=== PATIENT | male | born 1965 | race Hispanic/Latino ===

== ENCOUNTER 2017-01-09 19:12 | Inpatient (IN) | payer MEDICARE ==
[2017-01-09 19:20] VITALS: BMI 26.5
[2017-01-09] MEDS ORDERED: Sodium Chloride 0.9% 500 ML IV STA (19:35)
[2017-01-09] MEDS ORDERED: Morphine 2 mg/ml ISec IVP STA (19:35)
--- NOTE | 2017-01-09 19:44 | ED PDOC ---
Arrival/HPI - General Chief Complaint: GI Problem Time Seen by Provider: 01/09/17 19:22 Historian: Patient - History of Present Illness Narrative History of Present Illness (Text): 01/09/17 19:39 Td Garcia is a 51 year old male, whose past medical history includes chronic atrial fibrillation, CAD, and waldenstrom macroglobulinemia, s/p colectomy and colostomy, who presents to the emergency department complaining of multiple sudden onset episodes of epigastric discomfort that began approximately an hour prior to arrival. Patient states that he had eaten just prior to onset of symptoms. Patient notes that he restarted his Chlorambucil medication for his waldenstrom macroglobulinemia. Patient denies any fever, chills, diarrhea, shortness of breath, chest pain, or any other complaint at this time. PMD: Dr. Gavin Time/Duration: 1 hour Symptom Onset: Sudden Symptom Course: Unchanged Severity Level: Mild Activities at Onset: Light Context: Home Past Medical History - Provider Review Nursing Documentation Reviewed: Yes - Infectious Disease Hx of Infectious Diseases: None - Cardiac Hx Atrial Fibrillation: Yes Hx Congestive Heart Failure: Yes Hx Hypertension: Yes - Pulmonary Hx Chronic Obstructive Pulmonary Disease (COPD): No Other/Comment: on home O2 for low sat - Neurological Hx Transient Ischemic Attacks (TIA): No - HEENT Hx HEENT Disorder: No Hx Blind: No Hx Cataracts: No Hx Deafness: No Hx Difficulty Chewing: No Hx Epistaxis: No Hx Glaucoma: No Hx Macular Degeneration: No - Renal Hx Renal Failure: No - Endocrine/Metabolic Hx Diabetes Mellitus Type 1: No Hx Diabetes Mellitus Type 2: No - Hematological/Oncological Other/Comment: Waldenstrom's macroglobulinemia - Integumentary Hx Dermatological Disorder: No Hx Basal Cell Carcinoma: No Hx Eczema: No Hx Melanoma: No Hx Psoriasis: No Hx Squamous Cell Carcinoma: No - Musculoskeletal/Rheumatological Hx Musculoskeletal Disorders: Yes Hx Back Pain: Yes Hx Fractures: Yes (spine) Other/Comment: pt in rehab for 2 spinal fractures, unable to fully walk at home. - Gastrointestinal Hx Gastrointestinal Disorders: Yes Hx Bowel Surgery: Yes Hx Colostomy: Yes (LUQ) Hx Crohn's Disease: No Hx Diverticulitis: Yes Hx Gall Bladder Disease: No Hx Gastroesophageal Reflux: No Hx Ileostomy: No Hx Liver Failure: No Hx Pancreatitis: No HX Swallowing Problems: No - Genitourinary/Gynecological Hx Genitourinary Disorders: No Hx Hematuria: No Hx Incontinence: No Hx Prostate Problems: No Hx Sexually Transmitted Diseases: No Hx Urinary Tract Infection: Yes - Psychiatric Hx Emotional Abuse: No Hx Physical Abuse: No Hx Substance Use: No - Surgical History Hx Amputation: No Hx Appendectomy: No Hx Cardiac Catheterization: Yes (2012) Hx Cholecystectomy: No Hx Coronary Stent: No Hx Gastric Bypass Surgery: No Hx Hysterectomy: No Hx Joint Replacement: No Hx Kidney Transplant: No Hx Liver Transplant: No Hx Mastectomy: No Hx Musculoskeletal Surgery: No Hx Open Heart Surgery: No Hx Orthopedic Surgery: No Hx Splenectomy: No Hx Valve Replacement: No Other/Comment: Partial colectomy of the sigmoid colon. Colostomy placement - Anesthesia Hx Anesthesia: Yes Hx Anesthesia Reactions: No Hx Malignant Hyperthermia: No - Suicidal Assessment Feels Threatened In Home Enviroment: No Family/Social History - Physician Review Nursing Documentation Reviewed: Yes Family/Social History: No Known Family HX Smoking Status: Former Smoker Hx Alcohol Use: No Hx Substance Use: No Allergies/Home Meds Allergies/Adverse Reactions: Allergies No Known Allergies Allergy (Verified 03/28/16 19:46) Home Medications: Home Meds Medication Instructions Recorded Confirmed Temazepam [Restoril] 30 mg PO HS 09/18/16 11/28/16 Warfarin Sodium 10 mg PO DAILY 09/18/16 11/28/16 Review of Systems - Physician Review All systems were reviewed & negative as marked: Yes - Review of Systems Constitutional: absent: Fevers, Night Sweats Eyes: absent: Vision Changes ENT: absent: Hearing Changes Respiratory: absent: SOB, Cough Cardiovascular: absent: Chest Pain Gastrointestinal: Abdominal Pain (Epigastric Discomfort) Genitourinary Male: absent: Urinary Output Changes Musculoskeletal: absent: Back Pain, Neck Pain Skin: absent: Rash Neurological: absent: Headache Endocrine: absent: Diaphoresis Hemo/Lymphatic: absent: Adenopathy Psychiatric: absent: Depression Physical Exam Vital Signs Reviewed: Yes Vital Signs Temp Pulse Resp BP Pulse Ox 01/09/17 22:38 95 H 18 108/69 99 01/09/17 21:12 112 H 18 110/70 98 01/09/17 19:20 97.6 F 122 H 18 112/70 98 Temperature: Afebrile Blood Pressure: Normal Pulse: Tachycardic Respiratory Rate: Normal Appearance: Positive for: Ill-Appearing Pain Distress: None Mental Status: Positive for: Alert and Oriented X 3 - Systems Exam Head: Present: Atraumatic, Normocephalic Pupils: Present: PERRL Extroacular Muscles: Present: EOMI Conjunctiva: Present: Normal Mouth: Present: Moist Mucous Membranes Neck: Present: Normal Range of Motion Respiratory/Chest: Present: Clear to Auscultation, Good Air Exchange. No: Respiratory Distress, Accessory Muscle Use Cardiovascular: Present: Regular Rate and Rhythm, Normal S1, S2. No: Murmurs Abdomen: Present: Tenderness (epigastric tenderness on palpation), Normal Bowel Sounds, Other (Colostomy bag in place with stool in bag) Back: Present: Normal Inspection Upper Extremity: Present: Normal Inspection. No: Cyanosis, Edema Lower Extremity: Present: Normal Inspection. No: Edema Neurological: Present: GCS=15, CN II-XII Intact, Speech Normal Skin: Present: Warm, Dry, Normal Color. No: Rashes Psychiatric: Present: Alert, Oriented x 3, Normal Insight, Normal Concentration Medical Decision Making ED Course and Treatment: 01/09/17 19:48 Impression: 51 year old male complaining of epigastric discomfort about an hour prior to arrival. Differential Diagnosis included but are not limited to: Gastritis vs. Small Bowel Obstruction vs. Pancreatitis Plan: -- EKG -- Chest X-ray -- Labs -- Morphine, Pepcid, Zofran, and IV Fluids -- Reassess and disposition Prior Visits: Notes and results from previous visits were reviewed. Patient last seen in the ED on 11/28/16 because hemoglobin was 7.8. Patient left AMA Progress Notes: EKG: Ordered, reviewed, and independently interpreted the EKG. Rate : 126 bpm Rhythm : A fib Interpretation : Ocasional PVC, septal infarct, non-specific ST-T wave changes. 01/09/17 21:04 Reviewed Chest x-ray, shows no acute processes. 01/09/17 23:21 CT Abdomen and Pelvis shows: Bilateral pleural effusions, with adjacent compressive atelectasis, improved from previous examination performed 09/19/2016. Hepatosplenomegaly. The gallbladder is moderately enlarged, with small dependent stones. 01/09/17 23:[address] Ward, covering for Dr. Gavin, who is aware and agrees with plan. Pt will be admitted to [facility] for abdominal pain, vomiting , and biliary colic. Requests Dr. House and Dr. Mas on consult. Paged surgical elastic knitter hand frame. 01/09/17 23:[address] Barriga, surgical elastic knitter hand frame education research analyst, who is aware and agrees to evaluate. - Lab Interpretations Lab Results: 01/09/17 20:07 01/09/17 20:07 Lab Results 01/09/17 20:07: WBC 2.5 L* D, RBC 2.79 L, Hgb 9.5 L, Hct 27.9 L, MCV 100.0, MCH 34.1, MCHC 34.1, RDW 13.5, Plt Count 66 L, MPV 9.7, PT 13.7 H, INR 1.27 H, APTT 29.2, Sodium 138, Potassium 3.4 L, Chloride 93 L, Carbon Dioxide 31, Anion Gap 17, BUN 14, Creatinine 0.6, Est GFR ( Amer) > 60, Est GFR (Non-Af Amer) > 60, Random Glucose 181 H, Calcium 9.7, Total Bilirubin 3.9 H, AST 65 H, ALT 33 , Alkaline Phosphatase 172 H, Lactate Dehydrogenase 630, Total Creatine Kinase < 20 L, Troponin I 0.01, Total Protein 9.4 H, Albumin 4.0, Globulin 5.4, Albumin /Globulin Ratio 0.7 L, Lipase 43, Digoxin < 0.4 L I have reviewed the lab results: Yes - RAD Interpretation Narrative RAD Interpretations (Text): CT Abdomen and Pelvis shows: Lower thorax: Bilateral pleural effusions with adjacent compressive atelectasis , improved from previous examination performed 09/19/2016. ABDOMEN: Liver: Enlarged, without additional findings. Gallbladder and bile ducts: The gallbladder is moderately enlarged, an interval change from previous examination. Small dependent stones are identified. No intra-extrahepatic biliary ductal dilation. Pancreas: Limited evaluation secondary to the lack of intravenous contrast. Spleen: Enlarged, without additional findings. Adrenals: No acute findings. Kidneys and ureters: No obstructing stones. No hydronephrosis. PELVIS: Bladder: No acute findings. Reproductive: No acute findings. Appendix: Air-filled appendix is of normal-caliber (series 2, image 114) ABDOMEN and PELVIS: Stomach and bowel: A loop ileostomy is identified. Peritoneum: iInfiltration of the left upper quadrant, seen on previous examination is not present on the current study. Lymph nodes: Limited evaluation without intravenous contrast. Vasculature: No aortic aneurysm. Calcified atherosclerotic disease. Bones: No acute fracture. IMPRESSION: Bilateral pleural effusions, with adjacent compressive atelectasis, improved from previous examination performed 09/19/2016. Hepatosplenomegaly. The gallbladder is moderately enlarged, with small dependent stones. Radiology Orders: 01/09/17 19:34 CHEST PORTABLE [RAD] Stat 01/09/17 20:53 ABD & PELVIS W/O PO OR IV CONT [CT] Stat [employer] Architect: ED Physician, Radiologist - EKG Interpretation Interpreted by ED Physician: Yes Type: 12 lead EKG - Medication Orders Current Medication Orders: Sodium Chloride (Sodium Chloride 0.9%) 1,000 mls @ 100 mls/hr IV .Q10H LUZ Last Admin: 01/09/17 20:16 Dose: 100 MLS/HR eMAR Start Stop Document 01/09/17 20:16 HI (Rec: 01/09/17 20:16 [id number]) Intravenous Solution Start Date 01/09/17 Start Time 20:16 Metronidazole (Flagyl) 100 mls @ 100 mls/hr IVPB STAT STA PRN Reason: Protocol Stop: 01/10/17 00:18 Ondansetron HCl (Zofran Inj) 4 mg IVP Q4H PRN PRN Reason: Nausea/Vomiting Stop: 01/10/17 11:00 Oxycodone/Acetaminophen (Percocet 5/325 Mg Tab) 1 tab PO Q4H PRN PRN Reason: Pain, moderate (4-7) Stop: 01/10/17 12:00 Discontinued Medications Famotidine (Pepcid) 20 mg IVP STAT STA Stop: 01/09/17 19:36 Last Admin: 01/09/17 20:15 Dose: 20 MG IVP Administration Document 01/09/17 20:15 HI (Rec: 01/09/17 20:15 [id number]) Charges for Administration # of IVP Administrations 1 Hydromorphone HCl (Dilaudid) 1 mg IVP STAT STA Stop: 01/09/17 20:55 Last Admin: 01/09/17 21:06 Dose: 1 MG IVP Administration Document 01/09/17 21:06 HI (Rec: 01/09/17 21:06 [id number]) Charges for Administration # of IVP Administrations 1 Hydromorphone HCl (Dilaudid) 1 mg IVP STAT STA Stop: 01/09/17 22:35 Last Admin: 01/09/17 22:43 Dose: 1 MG IVP Administration Document 01/09/17 22:43 HI (Rec: 01/09/17 22:43 [id number]) Charges for Administration # of IVP Administrations 1 Sodium Chloride (Sodium Chloride 0.9%) 500 mls @ 500 mls/hr IV .Q1H STA Stop: 01/09/17 20:34 Last Admin: 01/09/17 20:16 Dose: 500 MLS/HR eMAR Start Stop Document 01/09/17 20:16 HI (Rec: 01/09/17 20:16 [id number]) Intravenous Solution Start Date 01/09/17 Start Time 20:16 Potassium Chloride (Potassium Chloride 10 Meq/100 Ml) 100 mls @ 100 mls/hr IVPB ONCE ONE Stop: 01/09/17 21:36 Last Admin: 01/09/17 21:06 Dose: 100 MLS/HR eMAR Start Stop Document 01/09/17 21:06 HI (Rec: 01/09/17 21:06 [id number]) Intravenous Solution Start Date 01/09/17 Start Time 21:06 Ceftriaxone Sodium (Rocephin 1 Gram Ivpb) 100 mls @ 200 mls/hr IV ONCE STA PRN Reason: Protocol Stop: 01/09/17 23:45 Morphine Sulfate (Morphine) 4 mg IVP STAT STA Stop: 01/09/17 19:36 Last Admin: 01/09/17 20:15 Dose: 4 MG MAR Pain Assessment Document 01/09/17 20:15 HI (Rec: 01/09/17 20:15 [id number]) Pain Reassessment Is this a pain reassessment? No Sleep Is patient sleeping during reassessment? No Presence of Pain Presence of Pain Yes Pain Scale Used Pain Scale Used Numeric Location Pain Location Body Site Abdomen IVP Administration Document 01/09/17 20:15 HI (Rec: 01/09/17 20:15 [id number]) Charges for Administration # of IVP Administrations 1 Ondansetron HCl (Zofran Inj) 4 mg IVP ONCE ONE Stop: 01/09/17 19:36 Last Admin: 01/09/17 20:15 Dose: 4 MG IVP Administration Document 01/09/17 20:15 HI (Rec: 01/09/17 20:15 [place] [facility] [id number][place] Charges for Administration # of IVP Administrations 1 - Scribe Statement The provider has reviewed the documentation as recorded by the Maryibe Thelma Quiroga Provider Scribe Attestation: All medical record entries made by the Maryibe were at my direction and personally dictated by me. I have reviewed the chart and agree that the record accurately reflects my personal performance of the history, physical exam, medical decision making, and the department course for this patient. I have also personally directed, reviewed, and agree with the discharge instructions and disposition. Disposition/Present on Arrival - Present on Arrival Any Indicators Present on Arrival: No History of DVT/PE: No History of Uncontrolled Diabetes: No Urinary Catheter: No History of Decub. Ulcer: No History Surgical Site Infection Following: None - Disposition Have Diagnosis and Disposition been Completed?: Yes Diagnosis: Biliary colic, Abdominal pain Disposition: HOSPITALIZED Disposition Time: 23:48 Patient Plan: Admission Patient Problems: Current Active Problems Problem Status Diagnosed Abdominal pain Acute Biliary colic Acute Condition: STABLE
[2017-01-09] MEDS: Sodium Chloride 0.9% 1,000 ML IV SCH (20:16)
[2017-01-09 20:23] LABS: HEMATOCRIT 27.9 % (42.0-52.0); MEAN CORPUSCULAR HEMOGLOBIN 34.1 pg (25.0-35.0); MEAN CORPUSCULAR HGB CONC 34.1 g/dl (31.0-37.0); MEAN PLATELET VOLUME 9.7 fl (7.0-11.0); RED CELL DISTRIBUTION WIDTH 13.5 % (11.5-14.5)
[2017-01-09 20:31] LABS: WHITE BLOOD COUNT 2.5 10^3/ul (4.5-11.0)
[2017-01-09 20:32] LABS: INR 1.27 (0.93-1.08); PARTIAL THROMBOPLASTIN TIME 29.2 Seconds (23.7-30.8)
[2017-01-09 20:33] LABS: ALB/GLOB RATIO 0.7 (1.1-1.8); ALKALINE PHOSPHATASE 172 U/L (38-133); ALT/SGPT 33 U/L (7-56); AST/SGOT 65 U/L (15-59); BILIRUBIN,TOTAL 3.9 mg/dL (0.2-1.3); BLOOD UREA NITROGEN 14 mg/dL (7-21); CALCIUM 9.7 mg/dL (8.4-10.5); CARBON DIOXIDE 31 mmol/L (21-33); CHLORIDE 93 mmol/L (98-107); GFR AFRICAN-AMERICAN > 60; GLUCOSE,RANDOM 181 mg/dL (70-110); LIPASE 43 U/L (23-300); POTASSIUM 3.4 mmol/L (3.6-5.0); SODIUM 138 mmol/L (132-148); TOTAL PROTEIN 9.4 g/dL (5.8-8.3)
[2017-01-09] MEDS ORDERED: Potassium Chloride 10 mEq 100 ML IVPB ONE (20:37)
[2017-01-09 20:47] LABS: TROPONIN I 0.01 ng/mL
[2017-01-09] MEDS ORDERED: HYDROmorphone 1 mg/ml ISec IVP STA ×3 (20:54→23:54)
--- NOTE | 2017-01-09 23:00 | CT ---
EXAM: CT Abdomen and Pelvis Without Intravenous Contrast CLINICAL HISTORY: 51 years old, male; Pain; Abdominal pain; Epigastric; Additional info: Vomiting TECHNIQUE: Axial computed tomography images of the abdomen and pelvis without intravenous contrast. This CT exam was performed using one or more of the following dose reduction techniques: automated exposure control, adjustment of the mA and/or kV according to patient size, and/or use of iterative reconstruction technique. Coronal and sagittal reformatted images were created and reviewed. COMPARISON: CT - ABD PELVIS PO CONTRAST ONLY 09/19/2016 1:44:32 PM FINDINGS: Lower thorax: Bilateral pleural effusions with adjacent compressive atelectasis, improved from previous examination performed 09/19/2016. ABDOMEN: Liver: Enlarged, without additional findings. Gallbladder and bile ducts: The gallbladder is moderately enlarged, an interval change from previous examination. Small dependent stones are identified. No intra-extrahepatic biliary ductal dilation. Pancreas: Limited evaluation secondary to the lack of intravenous contrast. Spleen: Enlarged, without additional findings. Adrenals: No acute findings. Kidneys and ureters: No obstructing stones. No hydronephrosis. PELVIS: Bladder: No acute findings. Reproductive: No acute findings. Appendix: Air-filled appendix is of normal-caliber (series 2, image 114) ABDOMEN and PELVIS: Stomach and bowel: A loop ileostomy is identified. Peritoneum: iInfiltration of the left upper quadrant, seen on previous examination is not present on the current study. Lymph nodes: Limited evaluation without intravenous contrast. Vasculature: No aortic aneurysm. Calcified atherosclerotic disease. Bones: No acute fracture. IMPRESSION: Bilateral pleural effusions, with adjacent compressive atelectasis, improved from previous examination performed 09/19/2016. Hepatosplenomegaly. The gallbladder is moderately enlarged, with small dependent stones.
[2017-01-09] MEDS ORDERED: cefTRIAXone 1 gm 100 ML IV STA (23:16)
[2017-01-09] MEDS ORDERED: metroNIDAZOLE IV 500 mg/100 ml 100 ML IVPB STA (23:19)
[2017-01-10] MEDS: Oxycodone/Acetaminophen 5/325 mg Tab PO PRN ×2 (02:12→05:44)
--- NOTE | 2017-01-10 05:10 | CP.PCM.CON ---
History of Present Illness - History of Present Illness History of Present Illness: General Surgery Consult Note for Dr. Mas CC: Abdominal Pain X 1 day HPI: This is a 51M with a PMH of diverticulitis s/p Sharpe's procedure in March 2016, and a skin wound infection at his stoma site. He presented today due to upper abdominal pain that began yesterday evening 30 min after eating his shrimp parm[place]iana dinner. He reports that the pain was accompanied by two episodes of emesis. He reports that now his pain has resolved. He is currently not nauseous anymore. Patient denies any skin breakdown or problems with or surrounding his stoma. The patient denies any fevers or chills at home. PMH: a-fib, waldenstroms macroglobinemia, HTN, chronic back pain PSH: Sharpe's procedure Meds: MAR reviewed NKDA Social: +Tobacco, no ETOH/drugs Fhx: non-contributory Review of Systems - Review of Systems All systems: reviewed and no additional remarkable complaints except Past Patient History - Infectious Disease Hx of Infectious Diseases: None - Past Social History Smoking Status: Never Smoked - CARDIAC Hx Atrial Fibrillation: Yes Hx Congestive Heart Failure: Yes Hx Hypertension: Yes - PULMONARY Hx Chronic Obstructive Pulmonary Disease (COPD): No Other/Comment: on home O2 for low sat - NEUROLOGICAL Hx Transient Ischemic Attacks (TIA): No - HEENT Hx HEENT Problems: No Hx Blind: No Hx Cataracts: No Hx Deafness: No Hx Difficulty Chewing: No Hx Epistaxis: No Hx Glaucoma: No Hx Macular Degeneration: No - RENAL Hx Renal Failure: No - ENDOCRINE/METABOLIC Hx Diabetes Mellitus Type 1: No Hx Diabetes Mellitus Type 2: No - HEMATOLOGICAL/ONCOLOGICAL Other/Comment: Waldenstrom's macroglobulinemia - INTEGUMENTARY Hx Dermatological Problems: No Hx Basil Cell: No Hx Eczema: No Hx Melanoma: No Hx Psoriasis: No Hx Squamous Cell: No - MUSCULOSKELETAL/RHEUMATOLOGICAL Hx Falls: Yes - GASTROINTESTINAL Hx Gastrointestinal Disorders: Yes Hx Bowel Surgery: Yes Hx Colostomy: Yes (LUQ) Hx Crohn's Disease: No Hx Diverticulitis: Yes Hx Gall Bladder Disease: No Hx Gastroesophageal Reflux: No Hx Ileostomy: No Hx Liver Failure: No Hx Pancreatitis: No HX Swallowing Problems: No - GENITOURINARY/GYNECOLOGICAL Hx Genitourinary Disorders: No Hx Hematuria: No Hx Incontinence: No Hx Prostate Problems: No Hx Sexually Transmitted Disorders: No Hx Urinary Tract Infection: Yes - PSYCHIATRIC Hx Emotional Abuse: No Hx Physical Abuse: No Hx Substance Use: No - SURGICAL HISTORY Hx Amputation: No Hx Appendectomy: No Hx Cardiac Catheterization: Yes (2012) Hx Cholecystectomy: No Hx Coronary Stent: No Hx Gastric Bypass Surgery: No Hx Hysterectomy: No Hx Joint Replacement: No Hx Kidney Transplant: No Hx Liver Transplant: No Hx Mastectomy: No Hx Musculoskeletal Surgery: No Hx Open Heart Surgery: No Hx Orthopedic Surgery: No Hx Splenectomy: No Hx Valve Replacement: No Other/Comment: Partial colectomy of the sigmoid colon. Colostomy placement - ANESTHESIA Hx Anesthesia: Yes Hx Anesthesia Reactions: No Hx Malignant Hyperthermia: No Meds Allergies/Adverse Reactions: Allergies Allergy/AdvReac Type Severity Reaction Status Date / Time No Known Allergies Allergy Verified 03/28/16 19:46 - Medications Medications: Current Medications Sodium Chloride (Sodium Chloride 0.9%) 1,000 mls @ 100 mls/hr IV .Q10H LUZ Last Admin: 01/09/17 20:16 Dose: 100 mls/hr Ondansetron HCl (Zofran Inj) 4 mg IVP Q4H PRN PRN Reason: Nausea/Vomiting Stop: 01/10/17 11:00 Oxycodone/Acetaminophen (Percocet 5/325 Mg Tab) 1 tab PO Q4H PRN PRN Reason: Pain, moderate (4-7) Stop: 01/10/17 12:00 Last Admin: 01/10/17 02:12 Dose: 1 tab Physical Exam - Constitutional Appears: Non-toxic, No Acute Distress - Head Exam Head Exam: ATRAUMATIC, NORMOCEPHALIC - Eye Exam Eye Exam: EOMI, Normal appearance - ENT Exam ENT Exam: Mucous Membranes Moist, Normal Exam - Respiratory Exam Respiratory Exam: NORMAL BREATHING PATTERN - Cardiovascular Exam Cardiovascular Exam: +S1, +S2 - GI/Abdominal Exam GI & Abdominal Exam: Soft. absent: Distended, Firm, Guarding, Hernia, Rebound, Rigid Additional comments: No [place], No RUQ tenderness, Stoma patent with stool - Extremities Exam Extremities exam: Positive for: normal inspection - Back Exam Back exam: NORMAL INSPECTION - Neurological Exam Neurological exam: Alert, Oriented x3 - Psychiatric Exam Psychiatric exam: Normal Affect, Normal Mood - Skin Skin Exam: Dry, Intact Results - Vital Signs Recent Vital Signs: Last Vital Signs Temp 97.5 F L 01/10/17 01:14 Pulse 90 01/10/17 01:14 Resp 18 01/10/17 01:14 BP 107/76 01/10/17 01:14 Pulse Ox 99 01/10/17 00:45 - Labs Result Diagrams: 01/09/17 20:07 01/09/17 20:07 - Imaging and Cardiology CT scan - abdomen Status: Image reviewed by me, Report reviewed by me Assessment & Plan - Assessment and Plan (Free Text) Assessment: This is a 51M who presented with abdominal pain; CT Moderatly enlarged gallbladder with small stones Vital Signs stable, Hgb 9.5, WBC 2.5, TBili 3.9 Abdominal US ordered will followup NPO IVF Continue medical management per primary team Will discuss with Dr. Chace Brennan PGY-0 - Date & Time Date: 01/10/17 Time: 01:00
[2017-01-10] MEDS: Sodium Chloride 0.9% 1,000 ML IV SCH ×2 (07:54→16:45)
--- NOTE | 2017-01-10 07:54 | RAD ---
PROCEDURE: CHEST RADIOGRAPH, 1 VIEW HISTORY: abdominal pain COMPARISON: None available. FINDINGS: LUNGS: Bilateral interstitial changes. PLEURA: No pneumothorax or pleural fluid seen. CARDIOVASCULAR: Normal. OSSEOUS STRUCTURES: No significant abnormalities. VISUALIZED UPPER ABDOMEN: Normal. OTHER FINDINGS: None. IMPRESSION: Bilateral interstitial changes.
[2017-01-10] MEDS ORDERED: Ciprofloxacin 400mg/200ml D5W 200 ML IVPB SCH (10:00)
[2017-01-10] MEDS: HYDROmorphone 1 mg/ml ISec IVP PRN ×4 (10:36→22:12)
--- NOTE | 2017-01-10 10:45 | US ---
HISTORY: Tbili 3.2 GB stones COMPARISON: None. TECHNIQUE: Sonographic evaluation of the abdomen. FINDINGS: LIVER: Measures cm. Heterogeneous echogenicity of the liver parenchyma. No mass. No intrahepatic bile duct dilatation. GALLBLADDER: Gallstones and sludge. COMMON BILE DUCT: Measures mm. No stones. No dilatation. PANCREAS: Unremarkable as visualized. No mass. No ductal dilatation. RIGHT KIDNEY: Measures cm. Normal echogenicity. No calculus, mass, or hydronephrosis. LEFT KIDNEY: Measures cm. Normal echogenicity. No calculus, mass, or hydronephrosis. SPLEEN: Normal in size and contour. No mass. AORTA: No aneurysmal dilatation. IVC: Unremarkable. OTHER FINDINGS: None. IMPRESSION: Fibro/fatty infiltration of the liver. Cholelithiasis.
[2017-01-10 11:50] LABS: MEAN CELL VOLUME 100.8 fL (80.0-105.0); MEAN CORPUSCULAR HEMOGLOBIN 33.3 pg (25.0-35.0); MEAN CORPUSCULAR HGB CONC 33.1 g/dl (31.0-37.0); MEAN PLATELET VOLUME 9.1 fl (7.0-11.0); RED CELL DISTRIBUTION WIDTH 13.7 % (11.5-14.5)
[2017-01-10 11:53] LABS: HEMATOCRIT 23.9 % (42.0-52.0); WHITE BLOOD COUNT 1.3 10^3/ul (4.5-11.0)
[2017-01-10 11:56] LABS: ALB/GLOB RATIO 0.7 (1.1-1.8); ALKALINE PHOSPHATASE 171 U/L (38-133); ALT/SGPT 68 U/L (7-56); AST/SGOT 91 U/L (15-59); BILIRUBIN,TOTAL 4.4 mg/dL (0.2-1.3); BLOOD UREA NITROGEN 12 mg/dL (7-21); CALCIUM 8.8 mg/dL (8.4-10.5); CARBON DIOXIDE 33 mmol/L (21-33); CHLORIDE 97 mmol/L (98-107); GFR AFRICAN-AMERICAN > 60; GLUCOSE,RANDOM 97 mg/dL (70-110); POTASSIUM 3.2 mmol/L (3.6-5.0); SODIUM 140 mmol/L (132-148); TOTAL PROTEIN 8.2 g/dL (5.8-8.3)
[2017-01-10] MEDS: Digoxin 125 mcg (0.125 mg) Tab PO SCH (13:08)
[2017-01-10] MEDS: cefTRIAXone 1 gm 100 ML IVPB SCH (13:09)
--- NOTE | 2017-01-10 13:28 | CARD ---
APPROVED REPORT EKG Measurement Heart [id number] <Conclusion> Atrial fibrillation with rapid ventricular response with premature ventricular or aberrantly conducted complexes RSR' or QR pattern in V1 suggests right ventricular conduction delay Septal infarct, age undetermined Abnormal ECG
[2017-01-10] MEDS: metroNIDAZOLE IV 500 mg/100 ml 100 ML IVPB SCH ×2 (14:08→22:14)
[2017-01-10] MEDS: Potassium Chloride 10 mEq 100 ML IVPB SCH ×2 (18:49→22:14)
[2017-01-10] MEDS ORDERED: RESTORIL 30 MG PO SCH (22:00)
--- NOTE | 2017-01-10 22:05 | HP ---
HISTORY OF PRESENT ILLNESS: The patient is a 51-year-old male admitted to the hospital with abdomina l pain. He has history of bilateral macroglobulinemia and being treated at [facility] with clonal B cell. He also has history of atrial fibrillation, currently on Coumadin with therapeutic I NR. He also has history of CAD. He denies any fever. He had nausea, vomiting. A CAT scan of the a bdomen showed cholelithiasis, hepatosplenomegaly. He denies any bleeding from any site. He has rossy re anemia with hemoglobin of 7.9, white count of 1.8 and platelet count of 52. He also has atrial fi brillation, heart rate is well controlled on current medications. PAST MEDICAL HISTORY: Waldenstrom macroglobulinemia, atrial fibrillation, history of TIA, COPD, panc ytopenia, history of blood transfusion in the past, multiple spinal fractures, back pain. PAST SURGICAL HISTORY: Bowel surgery, colostomy present; history of cardiac catheterization for hang nary artery disease, partial colectomy of sigmoid colon. FAMILY HISTORY: No positive family history of mother or father smoking. PERSONAL HISTORY: Former smoker. No history of alcohol abuse. ALLERGIES: No known drug allergies. SOCIAL HISTORY: He lives at home with . HOME MEDICATIONS: Restoril 30 mg p.o. at bedtime, Coumadin 10 mg daily. REVIEW OF SYSTEMS: As per HPI. Rest of 12-point review of systems reviewed and negative. PHYSICAL EXAMINATION: GENERAL: Comfortable in bed, in no acute distress. VITAL SIGNS: Temperature 97.6, heart rate is 120 per minute, respiratory rate 18 per minute, blood p ressure 112/70, oxygen 98%. HEENT: Atraumatic. NECK: No lymphadenopathy. CHEST: Air entry present, equal bilateral. No added sounds. CARDIOVASCULAR: S1, S2 normal. No murmur, no gallop. ABDOMEN: Soft, nontender. Colostomy present. Stoma clear around colostomy. No rebound tenderness. EXTREMITIES: No edema, no calf tenderness. SKIN: No petechia, no rash. CENTRAL NERVOUS SYSTEM: Alert, oriented x 3, no focal sensorimotor deficit. LABORATORY DATA: White count 2.5. Hemoglobin 9.5 on admission, it declined to 7.9. Platelet count 52, white count 1.3. Differential could not be done. Sodium 140, potassium 3.2, total bilirubin 4.4 , AST 91, ALT 68, alkaline phosphatase 71. EK beats per minute, atrial fibrillation. CAT sca n of the abdomen and pelvis reviewed: Bilateral pleural effusion, hepatosplenomegaly, gallbladder mi ldly enlarged with dependent stones, small. Blood cultures pending. Urine culture pending. Dig lev el 0.04. ASSESSMENT: 1. Waldenstrom macroglobulinemia. 2. Pancytopenia. 3. Gallstones. 4. Atrial fibrillation. 5. Possible intraabdominal infection. PLAN: Surgery, Dr. Mas consulted. Gastroenterology, Dr. House consulted. He has pancytopenia wi th hemoglobin of 7.9. I recommended 2 units of blood transfusion. The patient declined blood transf usion. He said I should talk to his oncologist at [place]. [facility] It was a general number. He could not provide the oncologist's number. A message left for o ncology team at [place] to call back. White count 1.3. Differential could not be done, neutrope jewel precautions to be followed, platelet count 52. We will monitor blood counts closely. We will co bill with antibiotic because of neutropenia with ceftriaxone 1 gram daily and Flagyl 500 three times a day q. 8 hrs. ID consultation, Dr. uLna, requested. We will continue Pepcid 20 mg IV q. 12, digoxin 0.125 mg daily. He also has hypokalemia, 2 riders KCl 20 mEq. Will continue Actigall 300 mg p.o. b.i.d. Nancy Ward MD cc: [id number] TT: 01/10/2017 22:05:03 artur
[2017-01-11] MEDS: Sodium Chloride 0.9% 1,000 ML IV SCH (03:01)
[2017-01-11] MEDS: HYDROmorphone 1 mg/ml ISec IVP PRN ×6 (03:04→22:07)
[2017-01-11] MEDS: metroNIDAZOLE IV 500 mg/100 ml 100 ML IVPB SCH ×2 (05:32→14:33)
[2017-01-11 08:00] LABS: ALB/GLOB RATIO 0.8 (1.1-1.8); ALKALINE PHOSPHATASE 148 U/L (38-133); ALT/SGPT 58 U/L (7-56); AST/SGOT 57 U/L (15-59); BILIRUBIN,TOTAL 1.9 mg/dL (0.2-1.3); BLOOD UREA NITROGEN 8 mg/dL (7-21); CALCIUM 8.3 mg/dL (8.4-10.5); CARBON DIOXIDE 32 mmol/L (21-33); CHLORIDE 99 mmol/L (95-110); GFR AFRICAN-AMERICAN > 60; GLUCOSE,RANDOM 84 mg/dL (70-110); POTASSIUM 3.8 mmol/L (3.6-5.0); SODIUM 138 mmol/L (132-148); TOTAL PROTEIN 7.5 g/dL (5.8-8.3)
--- NOTE | 2017-01-11 08:32 | CP.PCM.PN ---
Subjective - Date & Time of Evaluation Date of Evaluation: 01/11/17 Time of Evaluation: 08:28 - Subjective Subjective: SURGERY PROGRESS NOTE FOR DR. SANDERS 51M seen and examined at bedside. Abdominal pain is improved, denies N/V/F/C. Stoma is pink and patent with good output. Objective - Vital Signs/Intake and Output Vital Signs (last 24 hours): Temp Pulse Resp BP Pulse Ox 97.9 F 89 18 105/63 100 01/10/17 16:40 01/10/17 16:40 01/10/17 16:40 01/10/17 16:40 01/10/17 16:40 Intake and Output: 01/11/17 01/11/17 06:59 18:59 Intake Total 10 Output Total 1237 Balance -1227 - Medications Medications: Current Medications Digoxin (Lanoxin) 0.125 mg PO 1400 [facility] Last Admin: 01/10/17 13:08 Dose: 0.125 mg Famotidine (Pepcid) 20 mg IVP Q12 [facility] Last Admin: 01/11/17 03:05 Dose: 20 mg Furosemide (Lasix) 20 mg PO DAILY [facility] Last Admin: 01/10/17 13:09 Dose: 20 mg Heparin Sodium (Porcine) (Heparin) 5,000 units SC Q12 [facility] PRN Reason: Protocol Last Admin: 01/11/17 03:05 Dose: 5,000 units Hydromorphone HCl (Dilaudid) 1 mg IVP Q3H PRN PRN Reason: Pain, severe (8-10) Last Admin: 01/11/17 07:58 Dose: 1 mg Sodium Chloride (Sodium Chloride 0.9%) 1,000 mls @ 100 mls/hr IV .Q10H [facility] Last Admin: 01/11/17 03:01 Dose: 100 mls/hr Ceftriaxone Sodium (Rocephin 1 Gram Ivpb) 100 mls @ 100 mls/hr IVPB DAILY [facility] PRN Reason: Protocol Last Admin: 01/10/17 13:09 Dose: 100 mls/hr Metronidazole (Flagyl) 100 mls @ 100 mls/hr IVPB Q8 [facility] PRN Reason: Protocol Last Admin: 01/11/17 05:32 Dose: 100 mls/hr Ursodiol (Actigall) 300 mg PO BID [facility] Last Admin: 04/23/17 17:41 Dose: 300 mg - Labs Labs: 01/10/17 11:40 01/11/17 07:30 PT 13.7 Seconds (9.9-11.8) H 01/09/17 20:07 INR 1.27 (0.93-1.08) H 01/09/17 20:07 APTT 29.2 Seconds (23.7-30.8) 01/09/17 20:07 - Constitutional Appears: Non-toxic, No Acute Distress - Respiratory Exam Respiratory Exam: Clear to Ausculation Bilateral, NORMAL BREATHING PATTERN - Cardiovascular Exam Cardiovascular Exam: REGULAR RHYTHM, +S1, +S2 - GI/Abdominal Exam GI & Abdominal Exam: Soft. absent: Distended, Firm, Guarding, Rigid, Tenderness , Rebound Additional comments: ostomy has output - Neurological Exam Neurological Exam: Alert, Awake Assessment and Plan - Assessment and Plan (Free Text) Assessment: 51M presents with abd pain 2/2 gall bladder origin. T-bili trending down to 1.9 from 4.4. Plan: - recommendations as per GI - Serial abdominal exams - Neuropenic precautions Discussed with Dr. Chace Ghosh, PGY1
[2017-01-11] MEDS: cefTRIAXone 1 gm 100 ML IVPB SCH (10:10)
--- NOTE | 2017-01-11 11:36 | CON ---
DATE: 01/11/2017 REQUESTING PHYSICIAN: Dr. Gavin. REASON FOR CONSULT: I have been asked to see this 51-year-old male with a past medical history of Wa ldenstrom macroglobulinemia being followed at [facility] with a history of chronic atrial fibrillation, coronary artery disease, compression fractures of the spine, who comes [facility] with 1-day history of postprandial epigastric pain associated with some nausea. His pain subs ided rather quickly after the initial episode. In the Emergency Room, the patient was noted to have elevated liver enzymes with a total bilirubin of 3.9, AST 65, ALT 33, and an alkaline phosphatase of 172. Ultrasound of the abdomen revealed gallstones and sludge with non-dilated common bile duct. Th e patient was noted to have increased echogenicity of the liver. CT scan of the abdomen and pelvis s howed a distended gallbladder with hepatosplenomegaly. He was also noted to have bilateral pleural e ffusions with atelectasis. This morning, he denies any abdominal pain. His liver enzymes increase s omewhat yesterday with his total bilirubin going up to 4.4, AST 91, ALT 68. His numbers have decreas ed since then with a total bilirubin of 1.9, AST down to 57 and ALT down to 58 with an alkaline phosp hatase of 148. His lipase on admission to the hospital was normal. PAST MEDICAL HISTORY: As above. Again, he has a history of Waldenstrom macroglobulinemia with chron ic pancytopenia, compression fractures of his spine requiring chronic opiates, atrial fibrillation, c oronary artery disease, diverticulitis requiring a colostomy. PAST SURGICAL HISTORY: Notable for Nneka's procedure with a colostomy. SOCIAL HISTORY: He is a former cigarette smoker having quit a few years ago. He denies alcohol use. CURRENT MEDICATIONS: Include temazepam and warfarin. FAMILY HISTORY: Noncontributory. REVIEW OF SYSTEMS: A 14-point review of systems is notable for epigastric pain and nausea. PHYSICAL EXAMINATION: GENERAL: Middle-aged male lying in bed, appearing pale, in no acute distress. VITAL SIGNS: Reveal temperature of 97.6, blood pressure 93/63, heart rate of 84. HEENT: Reveals sclerae to be white, conjunctivae pale. NECK: Supple. CHEST: Reveals lungs to be with decreased breath sounds at the bases. HEART: Reveals an irregularly irregular rate. ABDOMEN: Soft, nontender. He does have a left upper quadrant colostomy. EXTREMITIES: Show no edema. LABORATORY DATA: Reveal total bilirubin 1.9, AST 57, ALT 58, alkaline phosphatase of 148. CBC revea ls white blood cell count 1.3 from yesterday, hemoglobin 7.9, platelet count of 52,000. Coags reveal PT 13.7, INR 1.27. IMPRESSION: A 51-year-old male with multiple comorbidities including Waldenstrom macroglobulinemia w ith severely decreased white blood cell count, platelet count, and hemoglobin. The patient refused b lood transfusions yesterday. He presents with epigastric pain with elevated liver enzymes which are trending downward with small stones and sludge within nondilated common bile duct found on ultrasound and CAT scan. I suspect that the patient passed a small stone as his liver enzymes are trending yaron nward. He is obviously at high risk for surgery given his multiple comorbidities including atrial fi brillation, coronary artery disease and pancytopenia. He has been pain free for the last 48 hours or so. He is at high risk for any endoscopic procedures as again he has a low hemoglobin, white blood cell count and platelet count. He has refused an MRCP due to inability to lie flat for even a few mi nutes, given his chronic back pain as well as he has refused blood transfusions. RECOMMENDATIONS: 1. Continue to follow liver enzymes. 2. Transfuse packed red blood cells given his hemoglobin being less than 8. 3. We will advance to a low fat diet. 4. If his liver enzymes go back up, the patient may need an EUS and ERCP with platelet transfusions before these studies. Vinny House MD cc: [id number] TT: 01/11/2017 11:36:37 Confirmation # [id number] Dictation # [id number] an
--- NOTE | 2017-01-11 11:49 | CON ---
DATE: 01/11/2017 The patient is seen on the floor. It is known that he has a CAT scan on the showing bilateral e ffusions, moderately enlarged gallbladder with stones, hepatosplenomegaly, a white count that is sign ificantly low - 1.3 this morning. Coags relatively normal. Bilirubin on admission is 3.9, down toda y to 1.9. SGOT and PT are relatively normal. Alk phos 148. Abdomen is soft and nontender. Consult to Dr. House is pending. He states he is unable to have an MRCP. Abdominal ultrasound is done on the which showed a common duct without dilation. Fatty infiltra tion of the liver with gallstones. Td Mas MD cc: [phone] TT: 01/11/2017 11:48:46 Confirmation # [id number] Dictation # [id number] jn
[2017-01-11 13:04] LABS: GRAN # 0.72 (1.4-6.5); GRAN % 69.9 % (50.0-68.0); LYMPH # 0.2 (1.2-3.4); LYMPH % 22.3 % (22.0-35.0); MEAN CELL VOLUME 101.7 fL (80.0-105.0); MEAN CORPUSCULAR HEMOGLOBIN 33.2 pg (25.0-35.0); MEAN CORPUSCULAR HGB CONC 32.6 g/dl (31.0-37.0); MEAN PLATELET VOLUME 9.1 fl (7.0-11.0); MONO # 0.1 (0.1-0.6); MONO % 6.8 % (1.0-6.0); PLATELET COUNT 52 10^3/uL (120.0-450.0); RED CELL DISTRIBUTION WIDTH 13.6 % (11.5-14.5)
[2017-01-11 13:10] LABS: HEMATOCRIT 23.6 % (42.0-52.0)
[2017-01-11] MEDS ORDERED: Oxycodone/Acetaminophen 10/325 mg Tab PO PRN (13:18)
[2017-01-11 13:22] LABS: ADD MANUAL DIFF? NO
--- NOTE | 2017-01-11 13:45 | PN ---
DATE: 01/11/2017 The patient is a 51-year-old, known to me from multiple previous admissions, came to Emergency Room. He states on Wednesday, his oncologist in [place] increased his chlorambucil dose. He thought it w as because of that. After, he had severe epigastric pain, was not controlled with his usual pain med ication. He felt nauseous, so he came to Emergency Room for further evaluation. Denies any fever or chills. No history of nausea or vomiting, just has epigastric pain. No hemoptysis, no hematemesis. PAST MEDICAL HISTORY: Significant for: 1. Waldenstrom gamma globulinemia. 2. Pancytopenia. 3. Chronic atrial fibrillation. 4. History of multiple transient ischemic attacks in the past. 5. History of chronic obstructive pulmonary disease. 6. History of degenerative disk disease. 7. Status post colostomy, secondary to diverticular perforation. 8. Status post cardiac catheterization. FAMILY HISTORY: Significant for mom having high blood pressure. SOCIAL HISTORY: He is single, lives with his son. Former heavy smoker. No history of alcohol depen dence. ALLERGIES: He is not allergic to any medication. PHYSICAL EXAMINATION: GENERAL: Today, he is awake and alert, communicative, anxious about his diagnosis. VITAL SIGNS: He is afebrile, pulse 84, respirations 17, blood pressure 92/56. LUNGS: Bilateral fair airflow, no rhonchi or crackle. HEART: S1, S2 audible. No murmur. ABDOMEN: Soft, obese, nontender, no rebound, no guarding. NEUROLOGIC: The patient is awake and alert, able to answer, able to understand, asking a lot of ques tions and they were all answered. LABORATORY EXAMINATION: WBCs 1.3, hemoglobin 7.9, hematocrit 23.9, platelets of 52. PT 13.7, INR 1. 27. Chemistry: Sodium 138, potassium 3.8, chloride 99, CO2 32, BUN 8, creatinine 0.6, blood sugar o f 84, total bilirubin 1.9, on admission was 3.9, and alkaline phosphatase was 772, it is 145 now. Di g level is 0.4. Had CT of the abdomen and pelvis done that shows bilateral pleural effusion with com pressive atelectasis, improved from previous examination in August, hepatosplenomegaly, gallbladder is moderately enlarged with slight dependent stones. ASSESSMENT: 1. Probably biliary colic. 2. Pancytopenia. 3. Waldenstrom gamma globulinemia. 4. Nonischemic cardiomyopathy. 5. Morbid obesity. 6. Deconditioning. 7. There is a history of hypertension, but currently hypotensive. 8. Pancytopenia. PLAN: I discussed with Dr. Saravia, who is oncologist in [place]. He recommended although pat jaguar refused blood transfusion yesterday, but he spoke to patient and recommended for 1 blood transfu nathan. I will order for that and I also discussed with Dr. Saravia and patient, will put Dr. Nolasco on for immediate input while he is in the hospital and then he will follow up with [place] as out patient. We will continue him on Actigall, Dilaudid as needed. He is on metronidazole. He is getti ng heparin, digoxin. He is on Lasix and Rocephin. We will give him blood transfusion and Dr. Nolasco has been consulted. Pepito Gavin MD cc: [id number] TT: 01/11/2017 12:58:38 Confirmation # [id number] Dictation # [id number] en 01/11/2017 12:43:09
[2017-01-11] MEDS: Digoxin 125 mcg (0.125 mg) Tab PO SCH (13:50)
--- NOTE | 2017-01-11 21:13 | CP.PCM.CON ---
History of Present Illness - History of Present Illness History of Present Illness: 51 year old male with PMH of Waldenstrom's Macroglobinemia currently on chemotherapy, atrial fibrillation on anticoagulation, history of diverticulitis S/P Sharpe's procedure, history of stoma skin infection came in to [facility] complaining of epigastric pain with two episodes of vomiting yesterday. The patient is now resolved and he has not vomited since. He apparently had the episode after eating. He denies fever or chills, no headache or dizziness, no chest pain, no diarrhea, no dysuria, no dizziness, no SOB, no cough or colds, no sore throat. CT abdomen and pelvis showed enlarged gallbladder with stones and the abdominal ultrasound did not show pericholecystic fluid but showed sludge. He is also noted be leukopenic and Infectious Diseases consult is requested to further evaluate and manage. Review of Systems - Review of Systems All systems: reviewed and no additional remarkable complaints except (as per HPI ) Past Patient History - Infectious Disease Hx of Infectious Diseases: None - Past Social History Smoking Status: Never Smoked - CARDIAC Hx Atrial Fibrillation: Yes Hx Congestive Heart Failure: Yes Hx Hypertension: Yes - PULMONARY Hx Chronic Obstructive Pulmonary Disease (COPD): No Other/Comment: on home O2 for low sat - NEUROLOGICAL Hx Transient Ischemic Attacks (TIA): No - HEENT Hx HEENT Problems: No Hx Blind: No Hx Cataracts: No Hx Deafness: No Hx Difficulty Chewing: No Hx Epistaxis: No Hx Glaucoma: No Hx Macular Degeneration: No - RENAL Hx Renal Failure: No - ENDOCRINE/METABOLIC Hx Diabetes Mellitus Type 1: No Hx Diabetes Mellitus Type 2: No - HEMATOLOGICAL/ONCOLOGICAL Other/Comment: Waldenstrom's macroglobulinemia - INTEGUMENTARY Hx Dermatological Problems: No Hx Basil Cell: No Hx Eczema: No Hx Melanoma: No Hx Psoriasis: No Hx Squamous Cell: No - MUSCULOSKELETAL/RHEUMATOLOGICAL Hx Falls: Yes - GASTROINTESTINAL Hx Gastrointestinal Disorders: Yes Hx Bowel Surgery: Yes Hx Colostomy: Yes (LUQ) Hx Crohn's Disease: No Hx Diverticulitis: Yes Hx Gall Bladder Disease: No Hx Gastroesophageal Reflux: No Hx Ileostomy: No Hx Liver Failure: No Hx Pancreatitis: No HX Swallowing Problems: No - GENITOURINARY/GYNECOLOGICAL Hx Genitourinary Disorders: No Hx Hematuria: No Hx Incontinence: No Hx Prostate Problems: No Hx Sexually Transmitted Disorders: No Hx Urinary Tract Infection: Yes - PSYCHIATRIC Hx Emotional Abuse: No Hx Physical Abuse: No Hx Substance Use: No - SURGICAL HISTORY Hx Amputation: No Hx Appendectomy: No Hx Cardiac Catheterization: Yes (2012) Hx Cholecystectomy: No Hx Coronary Stent: No Hx Gastric Bypass Surgery: No Hx Hysterectomy: No Hx Joint Replacement: No Hx Kidney Transplant: No Hx Liver Transplant: No Hx Mastectomy: No Hx Musculoskeletal Surgery: No Hx Open Heart Surgery: No Hx Orthopedic Surgery: No Hx Splenectomy: No Hx Valve Replacement: No Other/Comment: Partial colectomy of the sigmoid colon. Colostomy placement - ANESTHESIA Hx Anesthesia: Yes Hx Anesthesia Reactions: No Hx Malignant Hyperthermia: No Meds Allergies/Adverse Reactions: Allergies Allergy/AdvReac Type Severity Reaction Status Date / Time No Known Allergies Allergy Verified 03/28/16 19:46 - Medications Medications: Current Medications Digoxin (Lanoxin) 0.125 mg PO 1400 [facility] Last Admin: 01/10/17 13:08 Dose: 0.125 mg Famotidine (Pepcid) 20 mg IVP Q12 [facility] Last Admin: 01/11/17 03:05 Dose: 20 mg Furosemide (Lasix) 20 mg PO DAILY [facility] Last Admin: 01/10/17 13:09 Dose: 20 mg Heparin Sodium (Porcine) (Heparin) 5,000 units SC Q12 [facility] PRN Reason: Protocol Last Admin: 01/11/17 03:05 Dose: 5,000 units Hydromorphone HCl (Dilaudid) 1 mg IVP Q3H PRN PRN Reason: Pain, severe (8-10) Last Admin: 01/11/17 03:04 Dose: 1 mg Sodium Chloride (Sodium Chloride 0.9%) 1,000 mls @ 100 mls/hr IV .Q10H [facility] Last Admin: 01/11/17 03:01 Dose: 100 mls/hr Ceftriaxone Sodium (Rocephin 1 Gram Ivpb) 100 mls @ 100 mls/hr IVPB DAILY [facility] PRN Reason: Protocol Last Admin: 01/10/17 13:09 Dose: 100 mls/hr Metronidazole (Flagyl) 100 mls @ 100 mls/hr IVPB Q8 [facility] PRN Reason: Protocol Last Admin: 01/11/17 05:32 Dose: 100 mls/hr Ursodiol (Actigall) 300 mg PO BID [facility] Last Admin: 01/10/17 17:41 Dose: 300 mg Physical Exam - Constitutional Appears: Non-toxic, No Acute Distress - Head Exam Head Exam: NORMAL INSPECTION - ENT Exam ENT Exam: Mucous Membranes Moist - Neck Exam Neck exam: Negative for: Lymphadenopathy, Meningismus - Respiratory Exam Respiratory Exam: Decreased Breath Sounds - Cardiovascular Exam Cardiovascular Exam: +S1, +S2 - GI/Abdominal Exam GI & Abdominal Exam: Soft. absent: Tenderness Results - Vital Signs Recent Vital Signs: Last Vital Signs Temp 97.9 F 01/10/17 16:40 Pulse 89 01/10/17 16:40 Resp 18 01/10/17 16:40 BP 105/63 01/10/17 16:40 Pulse Ox 100 01/10/17 16:40 - Labs Result Diagrams: 01/11/17 12:50 01/11/17 07:30 Labs: Laboratory Results - last 24 hr 01/10/17 01/10/17 11:40 12:30 WBC 1.3 L* D RBC 2.37 L Hgb 7.9 L Hct 23.9 L MCV 100.8 MCH 33.3 MCHC 33.1 RDW 13.7 Plt Count 52 L MPV 9.1 Sodium 140 Potassium 3.2 L Chloride 97 L Carbon Dioxide 33 Anion Gap 13 BUN 12 Creatinine 0.6 Est GFR ( Amer) > 60 Est GFR (Non-Af Amer) > 60 Random Glucose 97 Calcium 8.8 Total Bilirubin 4.4 H AST 91 H ALT 68 H Alkaline Phosphatase 171 H Total Protein 8.2 Albumin 3.5 Globulin 4.7 Albumin/Globulin Ratio 0.7 L Blood Type A NEGATIVE Antibody Screen Negative Crossmatch See Detail BBK History Checked Patient has bt Assessment & Plan - Assessment and Plan (Free Text) Plan: Assessment Consider transient passage of gallbladder stones, without evidence of cholecystitis Leukopenia without fever, probably related to his Waldenstrom's macroglobulinemia history of intra-abdominal infection/colitis history of Acute sigmoid diverticulitis with abscess formation S/P resection and colostomy placement Waldenstrom's Macroglobinemia currently on chemotherapy atrial fibrillation on anticoagulation Plan will monitor the patient off antibiotics and closely trend WBC count and neutrophil count as well as fever curve Reviewed GI and Surgery evaluation - will trend LFT's Will follow clinically
[2017-01-12] MEDS: HYDROmorphone 1 mg/ml ISec IVP PRN (02:40)
[2017-01-12] MEDS ORDERED: HYDROmorphone 0.5 mg/0.5 ml ISec IVP STA (07:05)
[2017-01-12] MEDS ORDERED: HYDROmorphone 0.5 mg/0.5 ml ISec ONE (07:30)
[2017-01-12 07:55] LABS: BASO # 0.01 K/mm3 (0.0-2.0); BASO % 1.1 % (0.0-3.0); EOS % 1.1 % (1.5-5.0); GRAN % 68.2 % (50.0-68.0); HEMATOCRIT 25.3 % (42.0-52.0); LYMPH # 0.2 (1.2-3.4); LYMPH % 21.6 % (22.0-35.0); MEAN CELL VOLUME 100.4 fL (80.0-105.0); MEAN CORPUSCULAR HEMOGLOBIN 32.1 pg (25.0-35.0); MEAN PLATELET VOLUME 9.6 fl (7.0-11.0); MONO # 0.1 (0.1-0.6); RED CELL DISTRIBUTION WIDTH 14.5 % (11.5-14.5)
[2017-01-12 08:07] LABS: ADD MANUAL DIFF? NO; PLATELET COUNT 49 10^3/uL (120.0-450.0); WHITE BLOOD COUNT 0.9 10^3/ul (4.5-11.0)
[2017-01-12 08:28] LABS: ALB/GLOB RATIO 0.7 (1.1-1.8); ALKALINE PHOSPHATASE 327 U/L (38-133); ALT/SGPT 61 U/L (7-56); AST/SGOT 74 U/L (15-59); BLOOD UREA NITROGEN 8 mg/dL (7-21); CALCIUM 8.4 mg/dL (8.4-10.5); CARBON DIOXIDE 29 mmol/L (21-33); CHLORIDE 100 mmol/L (95-110); GFR AFRICAN-AMERICAN > 60; GLUCOSE,RANDOM 85 mg/dL (70-110); POTASSIUM 3.4 mmol/L (3.6-5.0); SODIUM 140 mmol/L (132-148); TOTAL PROTEIN 7.7 g/dL (5.8-8.3)
[2017-01-12] MEDS: HYDROmorphone 2 mg/ml ISec IVP PRN ×4 (10:40→19:44)
--- NOTE | 2017-01-12 11:15 | PN ---
DATE: 01/12/2017 The patient is seen. He is on neutropenic precautions. Temperature is 97, pulse is 92. He has rece ntly had chemotherapy for his Waldenstrom's. His white count today is 0.9, platelet counts are 49, b ilirubin is 5. SGOT and PT are elevated at 71. Alk phos is 327. The gallbladder on the CAT scan sh ows stones. Recently blood transfused. We will discuss MRCP again. His abdomen is soft, but he did have some pain yesterday. Td Mas MD cc: [phone] TT: 01/12/2017 11:15:32 Confirmation # [id number] Dictation # [id number]
[2017-01-12] MEDS ORDERED: Magnesium Citrate Oral SOL (300 ml) PO ONE (12:04)
[2017-01-12 12:51] LABS: RETIC% 2.8 % (0.5-1.5)
[2017-01-12 12:53] LABS: BILIRUBIN,DIRECT 3.6 mg/dL (0.0-0.4)
[2017-01-12] MEDS: Digoxin 125 mcg (0.125 mg) Tab PO SCH (13:21)
--- NOTE | 2017-01-12 14:13 | CP.PCM.CON ---
<Mendy Daugherty - Last Filed: 01/12/17 15:32> History of Present Illness - History of Present Illness History of Present Illness: Gastroenterology Fellow/PGY4 Consult Note 51 year old male with history of Waldenstrom's macroglobulinemia on chemotherapy followed at [facility], pancytopenia requiring transfusions, Atrial fibrillation on anticoagulation, Diverticulitis s/p Sharpe's procedure presenting with abdominal pain. Patient describes postprandial mid- abdominal pain approximately 30 minutes after eating. He notes radiation to right upper abdomen with current epigastric discomfort. His chemotherapy dose was recently doubled with first administration on Wednesday prior to onset of pain. He also notes constipation with hard small stool in colostomy and poor bowel habits over the last week. He denies fever, chills, sweats, jaundice, scleral icterus, recent antibiotics. Notes pruritis two weeks ago. Family- denies HCC, colon cancer Social- quit tobacco, denies alcohol or illicit drug use Surgery- Sharpe's procedure Review of Systems - Review of Systems Review of Systems: A 12-point review of systems negative except for as above Past Patient History - Infectious Disease Hx of Infectious Diseases: None - Past Social History Smoking Status: Never Smoked - CARDIAC Hx Atrial Fibrillation: Yes Hx Congestive Heart Failure: Yes Hx Hypertension: Yes - PULMONARY Hx Chronic Obstructive Pulmonary Disease (COPD): No Other/Comment: on home O2 for low sat - NEUROLOGICAL Hx Transient Ischemic Attacks (TIA): No - HEENT Hx HEENT Problems: No Hx Blind: No Hx Cataracts: No Hx Deafness: No Hx Difficulty Chewing: No Hx Epistaxis: No Hx Glaucoma: No Hx Macular Degeneration: No - RENAL Hx Renal Failure: No - ENDOCRINE/METABOLIC Hx Diabetes Mellitus Type 1: No Hx Diabetes Mellitus Type 2: No - HEMATOLOGICAL/ONCOLOGICAL Other/Comment: Waldenstrom's macroglobulinemia - INTEGUMENTARY Hx Dermatological Problems: No Hx Basil Cell: No Hx Eczema: No Hx Melanoma: No Hx Psoriasis: No Hx Squamous Cell: No - MUSCULOSKELETAL/RHEUMATOLOGICAL Hx Falls: Yes - GASTROINTESTINAL Hx Gastrointestinal Disorders: Yes Hx Bowel Surgery: Yes Hx Colostomy: Yes (LUQ) Hx Crohn's Disease: No Hx Diverticulitis: Yes Hx Gall Bladder Disease: No Hx Gastroesophageal Reflux: No Hx Ileostomy: No Hx Liver Failure: No Hx Pancreatitis: No HX Swallowing Problems: No - GENITOURINARY/GYNECOLOGICAL Hx Genitourinary Disorders: No Hx Hematuria: No Hx Incontinence: No Hx Prostate Problems: No Hx Sexually Transmitted Disorders: No Hx Urinary Tract Infection: Yes - PSYCHIATRIC Hx Emotional Abuse: No Hx Physical Abuse: No Hx Substance Use: No - SURGICAL HISTORY Hx Amputation: No Hx Appendectomy: No Hx Cardiac Catheterization: Yes (2012) Hx Cholecystectomy: No Hx Coronary Stent: No Hx Gastric Bypass Surgery: No Hx Hysterectomy: No Hx Joint Replacement: No Hx Kidney Transplant: No Hx Liver Transplant: No Hx Mastectomy: No Hx Musculoskeletal Surgery: No Hx Open Heart Surgery: No Hx Orthopedic Surgery: No Hx Splenectomy: No Hx Valve Replacement: No Other/Comment: Partial colectomy of the sigmoid colon. Colostomy placement - ANESTHESIA Hx Anesthesia: Yes Hx Anesthesia Reactions: No Hx Malignant Hyperthermia: No Meds Allergies/Adverse Reactions: Allergies Allergy/AdvReac Type Severity Reaction Status Date / Time No Known Allergies Allergy Verified 03/28/16 19:46 - Medications Medications: Current Medications Digoxin (Lanoxin) 0.125 mg PO 1400 [facility] Last Admin: 01/12/17 13:21 Dose: 0.125 mg Famotidine (Pepcid) 20 mg IVP Q12 [facility] Last Admin: 01/12/17 09:52 Dose: 20 mg Furosemide (Lasix) 20 mg PO DAILY [facility] Last Admin: 01/12/17 09:52 Dose: 20 mg Heparin Sodium (Porcine) (Heparin) 5,000 units SC Q12 [facility] PRN Reason: Protocol Last Admin: 01/12/17 09:51 Dose: 5,000 units Hydromorphone HCl (Dilaudid) 1.5 mg IVP Q3H PRN PRN Reason: Pain, severe (8-10) Last Admin: 01/12/17 13:32 Dose: 1.5 mg Oxycodone/Acetaminophen (Percocet 10/325 Mg Tab) 1 tab PO Q6H PRN PRN Reason: Pain, moderate (4-7) Ursodiol (Actigall) 300 mg PO BID [facility] Last Admin: 01/12/17 09:51 Dose: 300 mg Physical Exam - Constitutional Appears: Non-toxic, No Acute Distress, Chronically Ill - Head Exam Head Exam: ATRAUMATIC, NORMOCEPHALIC - Eye Exam Eye Exam: EOMI, PERRL Pupil Exam: PERRL. absent: Miosis, Mydriatic - ENT Exam ENT Exam: Mucous Membranes Moist, Normal Oropharynx - Neck Exam Neck exam: Positive for: Full Rom, Normal Inspection - Respiratory Exam Respiratory Exam: Clear to Auscultation Bilateral. absent: Rales, Rhonchi, Wheezes - Cardiovascular Exam Cardiovascular Exam: RRR, +S1, +S2. absent: Gallop, Rubs - GI/Abdominal Exam GI & Abdominal Exam: Normal Bowel Sounds, Soft, Tenderness. absent: Distended, Firm, Rebound, Rigid Additional comments: eipgastric to RUQ discomfort, PUQ colostomy- formed small hard stool present - Extremities Exam Extremities exam: Positive for: normal inspection. Negative for: pedal edema - Neurological Exam Neurological exam: Alert - Psychiatric Exam Psychiatric exam: Normal Affect, Normal Mood - Skin Skin Exam: Dry, Intact, Normal Color, Warm Results - Vital Signs Recent Vital Signs: Last Vital Signs Temp 97.4 F L 01/12/17 06:00 Pulse 92 H 01/12/17 06:00 Resp 20 01/12/17 06:00 BP 110/77 01/12/17 06:00 Pulse Ox 97 01/12/17 06:00 - Labs Result Diagrams: 01/12/17 07:00 01/12/17 07:00 Labs: Laboratory Results - last 24 hr 01/10/17 01/12/17 01/12/17 12:30 07:00 07:00 WBC 0.9 L* RBC 2.52 L Hgb 8.1 L Hct 25.3 L MCV 100.4 MCH 32.1 MCHC 32.0 RDW 14.5 Plt Count 49 L* MPV 9.6 Gran % 68.2 H Lymph % (Auto) 21.6 L Kingman % (Auto) 8.0 H Eos % (Auto) 1.1 L Baso % (Auto) 1.1 Gran # 0.60 L Lymph # 0.2 L Kingman # 0.1 Eos # 0.0 Baso # 0.01 Retic Count Sodium 140 Potassium 3.4 L Chloride 100 Carbon Dioxide 29 Anion Gap 14 BUN 8 Creatinine 0.6 Est GFR ( Amer) > 60 Est GFR (Non-Af Amer) > 60 Random Glucose 85 Calcium 8.4 Total Bilirubin 5.0 H Direct Bilirubin AST 74 H ALT 61 H Alkaline Phosphatase 327 H Lactate Dehydrogenase Total Protein 7.7 Albumin 3.2 Globulin 4.4 Albumin/Globulin Ratio 0.7 L Blood Type A NEGATIVE Antibody Screen Negative Crossmatch See Detail BBK History Checked Patient has bt 01/12/17 01/12/17 07:00 07:00 WBC RBC Hgb Hct MCV MCH MCHC RDW Plt Count MPV Gran % Lymph % (Auto) Kingman % (Auto) Eos % (Auto) Baso % (Auto) Gran # Lymph # Kingman # Eos # Baso # Retic Count 2.80 H Sodium Potassium Chloride Carbon Dioxide Anion Gap BUN Creatinine Est GFR ( Amer) Est GFR (Non-Af Amer) Random Glucose Calcium Total Bilirubin Direct Bilirubin 3.6 H AST ALT Alkaline Phosphatase Lactate Dehydrogenase 390 Total Protein Albumin Globulin Albumin/Globulin Ratio Blood Type Antibody Screen Crossmatch BBK History Checked Assessment & Plan - Assessment and Plan (Free Text) Assessment: 51 year old male with history of Waldenstrom's marcroglobulinemia on chemotherapy followed at [facility], pancytopenia requiring transfusions, Atrial fibrillation on anticoagulation, Diverticulitis s/p Sharpe's procedure presenting with abdominal pain. Laboratory findings show hyperbilirubinemia, transaminitis, and pancytopenia started on Neupogen. CT A/P and Ultrasound showed gallstones, sludge, and no biliary dilatations. Plan: >DDx: choledocholithiasis, hemolysis, drug side effect >chlorambucil may cause chlestatic pattern of elevated LFTs-ALP, TB >would benefit from MRCP to evaluate biliary tree -discussed with radiology-minimal additional back support available -may perform under anesthesia- will require anesthesiologist and nurse present >will re-evaluate and discuss MRCP with patient tomorrow >daily LFTs >patient reluctant with back pain >discuss with radiology consideration of exam under anesthesia >ordered direct bilirubin, LDH, haptoglobin, reticulocyte count >bowel regimen: Miralax BID, Dulcolax daily >supportive care pain control >Hem/Onc managing- Neupogen, 1U pRBC on 01/11 >further recommendations based on clinical course <Jose Burnham - Last Filed: 01/12/17 15:52> Meds - Medications Medications: Current Medications Digoxin (Lanoxin) 0.125 mg PO 1400 [facility] Last Admin: 01/12/17 13:21 Dose: 0.125 mg Famotidine (Pepcid) 20 mg IVP Q12 [facility] Last Admin: 01/12/17 09:52 Dose: 20 mg Furosemide (Lasix) 20 mg PO DAILY [facility] Last Admin: 01/12/17 09:52 Dose: 20 mg Heparin Sodium (Porcine) (Heparin) 5,000 units SC Q12 [facility] PRN Reason: Protocol Last Admin: 01/12/17 09:51 Dose: 5,000 units Hydromorphone HCl (Dilaudid) 1.5 mg IVP Q3H PRN PRN Reason: Pain, severe (8-10) Last Admin: 01/12/17 13:32 Dose: 1.5 mg Oxycodone/Acetaminophen (Percocet 10/325 Mg Tab) 1 tab PO Q6H PRN PRN Reason: Pain, moderate (4-7) Ursodiol (Actigall) 300 mg PO BID [facility] Last Admin: 01/12/17 09:51 Dose: 300 mg Results - Vital Signs Recent Vital Signs: Last Vital Signs Temp 97.4 F L 01/12/17 06:00 Pulse 92 H 01/12/17 06:00 Resp 20 01/12/17 06:00 BP 110/77 01/12/17 06:00 Pulse Ox 97 01/12/17 06:00 - Labs Result Diagrams: 01/12/17 07:00 01/12/17 07:00 Labs: Laboratory Results - last 24 hr 01/10/17 01/12/17 01/12/17 12:30 07:00 07:00 WBC 0.9 L* RBC 2.52 L Hgb 8.1 L Hct 25.3 L MCV 100.4 MCH 32.1 MCHC 32.0 RDW 14.5 Plt Count 49 L* MPV 9.6 Gran % 68.2 H Lymph % (Auto) 21.6 L Kingman % (Auto) 8.0 H Eos % (Auto) 1.1 L Baso % (Auto) 1.1 Gran # 0.60 L Lymph # 0.2 L Kingman # 0.1 Eos # 0.0 Baso # 0.01 Retic Count Sodium 140 Potassium 3.4 L Chloride 100 Carbon Dioxide 29 Anion Gap 14 BUN 8 Creatinine 0.6 Est GFR ( Amer) > 60 Est GFR (Non-Af Amer) > 60 Random Glucose 85 Calcium 8.4 Total Bilirubin 5.0 H Direct Bilirubin AST 74 H ALT 61 H Alkaline Phosphatase 327 H Lactate Dehydrogenase Total Protein 7.7 Albumin 3.2 Globulin 4.4 Albumin/Globulin Ratio 0.7 L Blood Type A NEGATIVE Antibody Screen Negative Crossmatch See Detail BBK History Checked Patient has bt 01/12/17 01/12/17 07:00 07:00 WBC RBC Hgb Hct MCV MCH MCHC RDW Plt Count MPV Gran % Lymph % (Auto) Kingman % (Auto) Eos % (Auto) Baso % (Auto) Gran # Lymph # Kingman # Eos # Baso # Retic Count 2.80 H Sodium Potassium Chloride Carbon Dioxide Anion Gap BUN Creatinine Est GFR ( Amer) Est GFR (Non-Af Amer) Random Glucose Calcium Total Bilirubin Direct Bilirubin 3.6 H AST ALT Alkaline Phosphatase Lactate Dehydrogenase 390 Total Protein Albumin Globulin Albumin/Globulin Ratio Blood Type Antibody Screen Crossmatch BBK History Checked Attending/Attestation - Attestation I have personally seen and examined this patient.: Yes I have fully participated in the care of the patient.: Yes I have reviewed all pertinent clinical information: Yes Notes (Text): 01/12/17 11:46 51 year old male with history of Waldenstrom's marcroglobulinemia, pancytopenia , Afib, Diverticulitis s/p colostomy presenting with abdominal pain, elevated lfts, and gallstones. 1. Abdominal pain 2. Elevated LFTs 3. Cholelithiasis 4. Constipation Plan: -Bilirubin has fluctated up and down, no direct bilirubin checked yet, need to distinguish between direct and indirect as there may be a component of hemolysis in this patient with Waldenstrom's -recommend direct bili, haptoglobin, retic, and LDH -would also recommend evaluation for chronic liver diseases including viral/ autoimmune serologies -ddx also includes drug induced liver injury due to recent increase in dose of chemo with chlorambucil -ddx includes choledocholithiasis -currently, patient is apprehensive about doing MRCP, but may be willing to consider it with anasthesia -check daily lfts -will re-evaluate again tomorrow -patient would be somewhat higher risk for EUS considering neutropenia/ thrombocytopenia, therefore would prefer him to undergo MRCP as it is non- invasive -will follow -start bowel regimen for constipation which may also be contributing -appreciate surgical evaluation
--- NOTE | 2017-01-12 14:36 | CON ---
DATE: 01/12/2017 This is a 51-year-old man who I have known well. The patient has underlying several problems. 1. Severe back problems for which he needs a stretcher and walkers to ambulate. 2. He also has a very severe heart condition with ejection fractions that are below 30%. 3. Finally, he has a very aggressive Waldenstrom's macroglobulinemia. He presented with a IgM level about 6000 about 2 years ago. We put him on multiple-agent chemotherapy that included Rituxan, Cyto rachelle and Velcade and high dose steroids, and he was on these medicines for about a year. He went to [facility] with an IgM level that went down to about 1000, but then it started going back up again. I saw him last in the summer while he was in the hospital for severe heart failure and at that time I gave him a Decadron infusion for 5 days with no benefit whatsoever. I was not able to give him the Velcade because of the neuropathy and hypotension. I was not able to give him the Rituxan because of the CHF. He went home and then he saw Dr. Robbins over at [facility] in 10/2016, and I spoke w ith Dr. Robbins at the time, sent him all the records, etc. After Dr. Robbins sent him for s econd opinions in terms of the heart, in terms of pulmonary status and he gave him a transfusion, he started treating him evidently, and in 11/2016 started him on leukeran pills 2 mg eight tablets p.o. once a day for 7 days once a month, but the IgM levels went up from 4100 to 4800, so last week he sta rted him on 15 pills for 7 days. The patient only took 7 of them that morning (on Wednesday morning), h ad some eggplant parmesan of some sort and started having severe abdominal pains and for this was bro ught in to the hospital. Every time the patient eats for the last couple of days now, he starts deve loping that severe pain again. The ultrasound shows gallstones in the gallbladder. PHYSICAL EXAMINATION: SKIN: No petechiae, no bruises. HEENT: Anicteric, although it looks like he has lost weight since last time I saw him in terms of te mporal wasting. NODES: None palpable in the axillary, cervical, supraclavicular or inguinal regions. LUNGS: Clear at present. The patient is able to lie flat in bed. HEART: S1, S2. ABDOMEN: Shows a very obese man, but again I think he has lost some of that weight. Some mild tende rness in the right upper quadrant; I did not want to push too hard. He does have a colostomy that wa s put in last summer. No ascites. EXTREMITIES: No edema. CENTRAL NERVOUS SYSTEM: No focal finding. Now he has a pancytopenia; however, he always has a pancytopenia. His white count generally runs shaunna und 1.5. With this new probable gallstone and infection, his white count went down to 0.9 and that m ay just be due to the infection, but his normal is only about 1.5. His hemoglobin is normally around 8, and Dr. Robbins has not transfused him unless the hemoglobin started going below 7 or into th e 6 range. His platelet count is generally around 60 and this is his normal. So, the blood counts a t this point are really not that much different other than the white count which may be acutely low b ecause of the gallbladder. I am giving him a Neupogen subQ 3 times a daily for 3 days and will see i f he responds in terms of the white count. But, in terms of the gallbladder, I think he is being obs erved by the GI people and surgeons to evaluate that. Osvaldo Nolasco MD cc: [phone] TT: 01/12/2017 14:34:58 Confirmation # [id number] Dictation # [id number] mn
[2017-01-12] MEDS: Sodium Chloride 0.9% 1,000 ML IV SCH (17:26)
--- NOTE | 2017-01-12 19:58 | PN ---
DATE: 01/12/2017 The patient is a 51-year-old, seen and examined, lying in bed. He seems to be comfortable. He state s after he ate, he had abdominal pain again. He also mentioned that he has no gas in his colostomy b ag. He does not have any stool for 6 days. PHYSICAL EXAMINATION: GENERAL: He is awake and alert, communicative. VITAL SIGNS: He is afebrile, pulse 88, respirations 20, blood pressure 100/51. LUNGS: Bilateral fair airflow, no rhonchi or crackle. HEART: S1, S2 audible. ABDOMEN: Soft. He has palpable discomfort around the colostomy bag. He has hard fecal matter in the bag that is sitting there for the last 3 or 4 days. EXTREMITIES: Bilateral leg +1 edema. LABORATORY EXAM: WBC is 0.9, hemoglobin 8.1, hematocrit 25.3, platelet of 49. Chemistry: Sodium 140 , potassium 3.4, chloride 100, CO2 of 29, BUN 8, creatinine 0.6, blood sugar of 85. Direct bilirubin 3.6, AST 74, ALT 61, alkaline phosphatase is 327. Blood cultures negative. IMPRESSION: 1. Abdominal pain, my impression is probably constipation. 2. Cholelithiasis. 3. Waldenstrom macrogammaglobulinemia. 4. Pancytopenia. 5. Chronic atrial fibrillation. 6. Status post colostomy. PLAN: We will give him magnesium citrate, half a bottle. If he does not have a bowel movement in co lostomy bag, will give him the other half. Will keep him on clear liquids for now until his constipa tion is resolved. I will also give him a dose of Neupogen. Will continue to give him analgesic as n eeded. We will follow up patient in a.m. Pepito Gavin MD cc: [phone] TT: 01/12/2017 19:58:21 Confirmation # [id number] Dictation # [id number] blayne
[2017-01-12 22:15] LABS: IMMUNOGLOBULIN G < 270.0 mg/dL (700.0-1600.0)
[2017-01-12 22:16] LABS: IMMUNOGLOBULIN A < 40.0 mg/dL (70.0-400.0)
[2017-01-12 23:32] LABS: IMMUNOGLOBULIN M > 2000.0 mg/dL (40.0-230.0)
[2017-01-13] MEDS: HYDROmorphone 2 mg/ml ISec IVP PRN ×7 (00:17→21:45)
[2017-01-13] MEDS: Sodium Chloride 0.9% 1,000 ML IV SCH ×2 (01:38→13:16)
[2017-01-13 07:09] LABS: ADD MANUAL DIFF? NO
[2017-01-13 07:16] LABS: GRAN # 2.95 (1.4-6.5); HEMATOCRIT 27.1 % (42.0-52.0); LYMPH # 0.3 (1.2-3.4); LYMPH % 8.1 % (22.0-35.0); MEAN CELL VOLUME 101.5 fL (80.0-105.0); MEAN CORPUSCULAR HEMOGLOBIN 32.6 pg (25.0-35.0); MEAN CORPUSCULAR HGB CONC 32.1 g/dl (31.0-37.0); MEAN PLATELET VOLUME 9.3 fl (7.0-11.0); MONO # 0.1 (0.1-0.6); MONO % 3.9 % (1.0-6.0); PLATELET COUNT 46 10^3/uL (120.0-450.0); RED CELL DISTRIBUTION WIDTH 14.4 % (11.5-14.5); WHITE BLOOD COUNT 3.4 10^3/ul (4.5-11.0)
[2017-01-13 07:26] LABS: ALB/GLOB RATIO 0.8 (1.1-1.8); ALKALINE PHOSPHATASE 394 U/L (38-133); ALT/SGPT 78 U/L (7-56); AST/SGOT 83 U/L (15-59); BILIRUBIN,TOTAL 2.8 mg/dL (0.2-1.3); BLOOD UREA NITROGEN 6 mg/dL (7-21); CALCIUM 8.5 mg/dL (8.4-10.5); CARBON DIOXIDE 29 mmol/L (21-33); CHLORIDE 99 mmol/L (98-107); GFR AFRICAN-AMERICAN > 60; GLUCOSE,RANDOM 77 mg/dL (70-110); POTASSIUM 3.3 mmol/L (3.6-5.0); SODIUM 140 mmol/L (132-148)
[2017-01-13 07:46] LABS: IRON 74 ug/dL (45-180)
[2017-01-13] MEDS ORDERED: Vancomycin 1gm in NS 250ml 1 GM/250 ML BAG IVPB STA (10:45)
--- NOTE | 2017-01-13 11:50 | PN ---
DATE: 01/13/2017 SUBJECTIVE: The patient is lying in bed. He has not had any fevers or chills. His abdominal pain i s less. He did admit to some diarrhea overnight. This was nonbloody. PHYSICAL EXAMINATION: VITAL SIGNS: Reveal temperature of 98, blood pressure 108/68, heart rate of 99. HEENT: Reveal sclerae to be white, conjunctivae pale. Oral mucosa is moist. NECK: Supple. CHEST: Lungs are clear. HEART: Reveals an irregular rate. ABDOMEN: Obese, soft, nontender. EXTREMITIES: Show no edema. LABORATORY DATA: From this morning reveal white blood cell count up to 3.4, hemoglobin 8.7, platelet count of 46,000. Retic count is 2.8. Chemistries reveal potassium at 3.3, total bilirubin down to 2.8, AST 83, ALT 78, alkaline phosphatase of 394. IMPRESSION: A 51-year-old male with multiple comorbidities including Waldenstrom's macroglobulinemia with pancytopenia, who had been on Leukeran and was stopped several weeks ago and apparently restart ed with patient taking 1 dose day before he came into the hospital with gallstones, elevated LFTs and some mild hyperbilirubinemia. Radiographic imaging does not show any dilatation of the common bile duct. His blood cultures from yesterday were positive for gram-positive rods in 1 set. Concern is t hat with the presence of gallstones and sludge that the patient has a small stone or sludge in the co mmon bile duct. His total bilirubin appears to be fluctuating from as high as 5 to as low as 1.9 ove r the last several days. His alkaline phosphatase is up to 394. He is at high risk for invasive end oscopic procedures given his comorbidities, which include chronic atrial fibrillation, coronary arter y disease and the pancytopenia. I have asked Dr. Burnham to see the patient regarding his thoughts abo ut an endoscopic ultrasound. One must also rule out Clostridium difficile, although the patient is o n IV Flagyl and vancomycin. RECOMMENDATIONS: 1. Check stool for C and S, O and P, and Clostridium difficile toxin. 2. Follow liver enzymes for now. 3. Advance diet as per surgery, who made the patient n.p.o. Vinny House MD cc: [phone] TT: 01/13/2017 11:50:06 Confirmation # [id number] Dictation # [id number]
--- NOTE | 2017-01-13 12:07 | CP.PCM.PN ---
Subjective - Date & Time of Evaluation Date of Evaluation: 01/13/17 Time of Evaluation: 07:10 - Subjective Subjective: SURGERY PROGRESS NOTE FOR DR. SANDERS 51M seen and examined at bedside. No fevers chills, nausea, vomiting. Objective - Vital Signs/Intake and Output Vital Signs (last 24 hours): Temp Pulse Resp BP Pulse Ox 98 F 89 19 108/68 96 01/13/17 07:00 01/13/17 07:00 01/13/17 07:00 01/13/17 10:02 01/13/17 07:00 Intake and Output: 01/13/17 01/13/17 06:59 18:59 Intake Total 2200 Output Total 200 Balance 1999 - Medications Medications: Current Medications Digoxin (Lanoxin) 0.125 mg PO 1400 [facility] Last Admin: 01/12/17 13:21 Dose: 0.125 mg Famotidine (Pepcid) 20 mg IVP Q12 [facility] Last Admin: 01/13/17 10:03 Dose: 20 mg Furosemide (Lasix) 20 mg PO DAILY [facility] Last Admin: 01/13/17 10:02 Dose: 20 mg Heparin Sodium (Porcine) (Heparin) 5,000 units SC Q12 [facility] PRN Reason: Protocol Last Admin: 01/13/17 10:02 Dose: 5,000 units Hydromorphone HCl (Dilaudid) 1.5 mg IVP Q3H PRN PRN Reason: Pain, severe (8-10) Last Admin: 01/13/17 11:28 Dose: 1.5 mg Sodium Chloride (Sodium Chloride 0.9%) 1,000 mls @ 100 mls/hr IV .Q10H [facility] Last Admin: 01/13/17 01:38 Dose: 100 mls/hr Vancomycin HCl (Vancomycin 1gm) 1 gm in 250 mls @ 167 mls/hr IVPB STAT STA PRN Reason: Protocol Stop: 01/13/17 12:14 Last Admin: 01/13/17 11:15 Dose: 167 mls/hr Potassium Chloride (Potassium Chloride 10 Meq/100 Ml) 10 meq in 100 mls @ 100 mls/hr IVPB Q2H [facility] Stop: 01/13/17 14:59 Oxycodone/Acetaminophen (Percocet 10/325 Mg Tab) 1 tab PO Q6H PRN PRN Reason: Pain, moderate (4-7) Ursodiol (Actigall) 300 mg PO BID [facility] Last Admin: 01/13/17 10:02 Dose: 300 mg - Labs Labs: 01/13/17 06:30 01/13/17 06:30 PT 13.7 Seconds (9.9-11.8) H 01/09/17 20:07 INR 1.27 (0.93-1.08) H 01/09/17 20:07 APTT 29.2 Seconds (23.7-30.8) 01/09/17 20:07 - Constitutional Appears: Non-toxic, No Acute Distress - Respiratory Exam Respiratory Exam: Clear to Ausculation Bilateral, NORMAL BREATHING PATTERN - Cardiovascular Exam Cardiovascular Exam: REGULAR RHYTHM, +S1, +S2 - GI/Abdominal Exam GI & Abdominal Exam: Soft. absent: Distended, Firm, Guarding, Rigid, Tenderness , Rebound Assessment and Plan - Assessment and Plan (Free Text) Assessment: 51M presents with abd pain 2/2 gall bladder origin. T. bili trended back up Plan: - recommendations as per GI MRCP vs EUS - Serial abdominal exams - Neuropenic precautions - poss surgical intervention after CBD imaging Discussed with Dr. Chace Ghosh, PGY1
--- NOTE | 2017-01-13 12:25 | CP.PCM.PN ---
<Mendy Daugherty - Last Filed: 01/13/17 16:07> Subjective - Date & Time of Evaluation Date of Evaluation: 01/13/17 Time of Evaluation: 12:22 - Subjective Subjective: Gastroenterology Fellow/PGY4 Progress Note Patient notes improving left upper abdomen pain after large liquid stool with change of two colostomy bags after Mg citrate. A 12-point review of systems negative except for as above. Objective - Vital Signs/Intake and Output Vital Signs (last 24 hours): Temp Pulse Resp BP Pulse Ox 98 F 89 19 108/68 96 01/13/17 07:00 01/13/17 07:00 01/13/17 07:00 01/13/17 10:02 01/13/17 07:00 Intake and Output: 01/13/17 01/13/17 06:59 18:59 Intake Total 2200 Output Total 200 Balance 2000 - Medications Medications: Current Medications Digoxin (Lanoxin) 0.125 mg PO 1400 [facility] Last Admin: 01/12/17 13:21 Dose: 0.125 mg Famotidine (Pepcid) 20 mg IVP Q12 [facility] Last Admin: 01/13/17 10:03 Dose: 20 mg Furosemide (Lasix) 20 mg PO DAILY [facility] Last Admin: 01/13/17 10:02 Dose: 20 mg Heparin Sodium (Porcine) (Heparin) 5,000 units SC Q12 [facility] PRN Reason: Protocol Last Admin: 01/13/17 10:02 Dose: 5,000 units Hydromorphone HCl (Dilaudid) 1.5 mg IVP Q3H PRN PRN Reason: Pain, severe (8-10) Last Admin: 01/13/17 11:28 Dose: 1.5 mg Sodium Chloride (Sodium Chloride 0.9%) 1,000 mls @ 100 mls/hr IV .Q10H [facility] Last Admin: 01/13/17 01:38 Dose: 100 mls/hr Potassium Chloride (Potassium Chloride 10 Meq/100 Ml) 10 meq in 100 mls @ 100 mls/hr IVPB Q2H [facility] Stop: 01/13/17 14:59 Oxycodone/Acetaminophen (Percocet 10/325 Mg Tab) 1 tab PO Q6H PRN PRN Reason: Pain, moderate (4-7) Ursodiol (Actigall) 300 mg PO BID [facility] Last Admin: 01/13/17 10:02 Dose: 300 mg - Labs Labs: 01/13/17 06:30 01/13/17 06:30 PT 13.7 Seconds (9.9-11.8) H 01/09/17 20:07 INR 1.27 (0.93-1.08) H 01/09/17 20:07 APTT 29.2 Seconds (23.7-30.8) 01/09/17 20:07 - Constitutional Appears: Non-toxic, No Acute Distress - Head Exam Head Exam: ATRAUMATIC, NORMOCEPHALIC - Eye Exam Eye Exam: EOMI, PERRL Pupil Exam: PERRL. absent: Miosis, Mydriatic - ENT Exam ENT Exam: Mucous Membranes Moist, Normal Oropharynx - Neck Exam Neck Exam: Full ROM, Normal Inspection - Respiratory Exam Respiratory Exam: Clear to Ausculation Bilateral. absent: Rales, Rhonchi, Wheezes - Cardiovascular Exam Cardiovascular Exam: RRR, +S1, +S2. absent: Gallop, Rubs - GI/Abdominal Exam GI & Abdominal Exam: Soft, Tenderness, Normal Bowel Sounds. absent: Distended, Firm, Guarding, Rigid, Organomegaly, Rebound Additional comments: LUQ colostomy with soft dark brown stool, minimal LUQ discomfort to palpation - Extremities Exam Extremities Exam: Normal Inspection. 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 Laboratory findings show hyperbilirubinemia, transaminitis, and pancytopenia started on Neupogen. CT A/P and Ultrasound showed gallstones, sludge, and no biliary dilatations. Plan: >ordered MRCP with sedation under anesthesia-scheduled >conjugated hyperbilirubinemia, evaluate for choledocholithiasis >pending autoimmune workup >negative Hepatitis panel >daily LFTs >surgery following-appreciate recommendations >bowel regimen: Miralax BID, Dulcolax daily >supportive care pain control >Hem/Onc managing- Neupogen, 1U pRBC on 01/11 >further recommendations based on MRCP results <Vida Bartholomew MD - Last Filed: 01/13/17 17:42> Objective - Vital Signs/Intake and Output Vital Signs (last 24 hours): Temp Pulse Resp BP Pulse Ox 98 F 89 19 108/68 96 01/13/17 07:00 01/13/17 07:00 01/13/17 07:00 01/13/17 10:02 01/13/17 07:00 Intake and Output: 01/13/17 01/13/17 06:59 18:59 Intake Total 2200 1000 Output Total 200 1000 Balance 2000 0 - Medications Medications: Current Medications Digoxin (Lanoxin) 0.125 mg PO 1400 [facility] Last Admin: 01/13/17 14:19 Dose: 0.125 mg Famotidine (Pepcid) 20 mg IVP Q12 [facility] Last Admin: 01/13/17 10:03 Dose: 20 mg Furosemide (Lasix) 20 mg PO DAILY [facility] Last Admin: 01/13/17 10:02 Dose: 20 mg Heparin Sodium (Porcine) (Heparin) 5,000 units SC Q12 [facility] PRN Reason: Protocol Last Admin: 01/13/17 10:02 Dose: 5,000 units Hydromorphone HCl (Dilaudid) 1.5 mg IVP Q3H PRN PRN Reason: Pain, severe (8-10) Last Admin: 01/13/17 14:54 Dose: 1.5 mg Sodium Chloride (Sodium Chloride 0.9%) 1,000 mls @ 100 mls/hr IV .Q10H [facility] Last Admin: 01/13/17 13:16 Dose: 100 mls/hr Oxycodone/Acetaminophen (Percocet 10/325 Mg Tab) 1 tab PO Q6H PRN PRN Reason: Pain, moderate (4-7) Ursodiol (Actigall) 300 mg PO BID [facility] Last Admin: 01/13/17 17:29 Dose: 300 mg - Labs Labs: 01/13/17 06:30 01/13/17 06:30 PT 13.7 Seconds (9.9-11.8) H 01/09/17 20:07 INR 1.27 (0.93-1.08) H 01/09/17 20:07 APTT 29.2 Seconds (23.7-30.8) 01/09/17 20:07 Attending/Attestation - Attestation I have personally seen and examined this patient.: Yes I have fully participated in the care of the patient.: Yes I have reviewed all pertinent clinical information, including history, physical exam and plan: Yes Notes (Text): 01/13/17 17:38 Patient seen and examined with GI fellow at bedside. This is a 51 year old male with history of Waldenstrom's marcroglobulinemia, pancytopenia, Afib, Diverticulitis s/p colostomy presenting with abdominal pain, elevated lfts, and gallstones. MRCP pending with sedation for tomorrow. Hepatitis serologies negative. Pancytopenia due to waldenstroms- may need platelets infusion if needs ERCP. Bowel regimen for constipation. Surgical consult noted.
[2017-01-13] MEDS: Digoxin 125 mcg (0.125 mg) Tab PO SCH (14:19)
--- NOTE | 2017-01-13 21:22 | CP.PCM.PN ---
Subjective - Date & Time of Evaluation Date of Evaluation: 01/13/17 Time of Evaluation: 13:40 - Subjective Subjective: Comfortable in bed, not in distress, afebrile, has occasional abdominal pain. Objective - Vital Signs/Intake and Output Vital Signs (last 24 hours): Temp Pulse Resp BP Pulse Ox 98.6 F 101 H 20 101/65 100 01/13/17 16:00 01/13/17 16:00 01/13/17 16:00 01/13/17 16:00 01/13/17 16:00 Intake and Output: 01/13/17 01/14/17 18:59 06:59 Intake Total 1000 Output Total 1000 Balance 0 - Medications Medications: Current Medications Digoxin (Lanoxin) 0.125 mg PO 1400 [facility] Last Admin: 01/13/17 14:19 Dose: 0.125 mg Famotidine (Pepcid) 20 mg IVP Q12 [facility] Last Admin: 01/13/17 10:03 Dose: 20 mg Furosemide (Lasix) 20 mg PO DAILY [facility] Last Admin: 01/13/17 10:02 Dose: 20 mg Heparin Sodium (Porcine) (Heparin) 5,000 units SC Q12 [facility] PRN Reason: Protocol Last Admin: 01/13/17 10:02 Dose: 5,000 units Hydromorphone HCl (Dilaudid) 1.5 mg IVP Q3H PRN PRN Reason: Pain, severe (8-10) Last Admin: 01/13/17 18:15 Dose: 1.5 mg Sodium Chloride (Sodium Chloride 0.9%) 1,000 mls @ 50 mls/hr IV .Q20H [facility] Potassium Chloride (Potassium Chloride 10 Meq/100 Ml) 10 meq in 100 mls @ 100 mls/hr IVPB Q2H [facility] Stop: 01/13/17 21:59 Meropenem 1g/NS 100mL IVPB (Meropenem 1g/Ns 100ml Ivpb) 100 mls @ 100 mls/hr IVPB Q8 [facility] PRN Reason: Protocol Stop: 01/20/17 22:01 Oxycodone/Acetaminophen (Percocet 10/325 Mg Tab) 1 tab PO Q6H PRN PRN Reason: Pain, moderate (4-7) Ursodiol (Actigall) 300 mg PO BID [facility] Last Admin: 01/13/17 17:29 Dose: 300 mg - Labs Labs: 04/26/17 06:30 01/13/17 06:30 PT 13.7 Seconds (9.9-11.8) H 01/09/17 20:07 INR 1.27 (0.93-1.08) H 01/09/17 20:07 APTT 29.2 Seconds (23.7-30.8) 01/09/17 20:07 - Constitutional Appears: Non-toxic, No Acute Distress - Head Exam Head Exam: NORMAL INSPECTION - ENT Exam ENT Exam: Mucous Membranes Moist - Neck Exam Neck Exam: absent: Lymphadenopathy, Meningismus - Respiratory Exam Respiratory Exam: Decreased Breath Sounds - Cardiovascular Exam Cardiovascular Exam: +S1, +S2 - GI/Abdominal Exam GI & Abdominal Exam: Soft. absent: Tenderness Assessment and Plan - Assessment and Plan (Free Text) Plan: assessment Consider transient passage of gallbladder stones, without evidence of cholecystitis R/O choledocholethiasis Gram positive ross in one bottle, R/O contamination Leukopenia without fever, probably related to his Waldenstrom's macroglobulinemia history of intra-abdominal infection/colitis history of Acute sigmoid diverticulitis with abscess formation S/P resection and colostomy placement Waldenstrom's Macroglobinemia currently on chemotherapy atrial fibrillation on anticoagulation Plan Alk Phos has trended up - there is plan of either MRCP or EUS - will start patient on Merrem and a dose of IV Vancomycin and repeated blood cx Will follow clinically
[2017-01-13] MEDS: Meropenem 1g/NS 100mL IVPB 1 GM/100 ML PIGGYBACK IVPB SCH (21:49)
[2017-01-14] MEDS: HYDROmorphone 2 mg/ml ISec IVP PRN ×6 (01:48→21:25)
[2017-01-14] MEDS: Sodium Chloride 0.9% 1,000 ML IV SCH ×2 (01:49→23:29)
[2017-01-14] MEDS: Meropenem 1g/NS 100mL IVPB 1 GM/100 ML PIGGYBACK IVPB SCH ×3 (06:09→23:25)
--- NOTE | 2017-01-14 06:35 | PN ---
DATE: 01/13/2017 SUBJECTIVE: The patient is 51 years old, seen and examined. The scared after he had magnesium citra te. He had a large constipated bowel movement in the bag followed by liquid bag and he filled up babs ost 2 bags and since then he feels a little better although he is scared to eat. He was still on a l iquid diet. OBJECTIVE: VITAL SIGNS: He is afebrile. Pulse 89, respirations 19, blood pressure 108/68. LUNGS: Bilateral fair air flow. No rhonchi or crackles. HEART: S1, S2 audible. ABDOMEN: Soft, obese, nontender, no rebound. His colostomy bag has brownish liquidy stool. EXTREMITIES: Bilateral legs +1 edema. LABORATORY DATA: WBC 3.4, hemoglobin 8.7, hematocrit 27, platelets 46. Chemistry: Sodium 140, pota ssium 3.3, chloride 99, CO2 of 29, BUN 6, creatinine 0.6, blood sugar 77. Hepatitis profile negative . Blood culture shows gram positive rods. ASSESSMENT: 1. Pancytopenia. 2. Waldenstrom gamma macroglobulinemia. 3. Abdominal pain, could be secondary to constipation, but he also has cholelithiasis with abnormal LFTs. We are not sure just because of obstruction or hemolysis. 4. Chronic atrial fibrillation. 5. Status post partial small bowel obstruction and colostomy. PLAN: Discussed with GI. The patient is scheduled to have MRCP done tomorrow because he has positiv e blood cultures but he is off of antibiotics. Patient has cardiomyopathy. I will cut down his flui ds so he does not go into CHF. A repeat blood culture has been ordered by . He is on DVT p rophylaxis. Follow up his CBC and electrolytes in the a.m. Pepito Gavin MD cc: [phone] TT: 01/14/2017 06:34:43 Confirmation # [id number] Dictation # [id number]
[2017-01-14 07:03] LABS: ADD MANUAL DIFF? NO
[2017-01-14 07:18] LABS: BASO # 0.01 K/mm3 (0.0-2.0); BASO % 0.3 % (0.0-3.0); GRAN # 3.04 (1.4-6.5); GRAN % 85.9 % (50.0-68.0); HEMATOCRIT 26.4 % (42.0-52.0); LYMPH # 0.3 (1.2-3.4); LYMPH % 9.3 % (22.0-35.0); MEAN CELL VOLUME 102.3 fL (80.0-105.0); MEAN CORPUSCULAR HEMOGLOBIN 32.6 pg (25.0-35.0); MEAN CORPUSCULAR HGB CONC 31.8 g/dl (31.0-37.0); MEAN PLATELET VOLUME 9.2 fl (7.0-11.0); MONO # 0.2 (0.1-0.6); MONO % 4.5 % (1.0-6.0); PLATELET COUNT 44 10^3/uL (120.0-450.0); RED CELL DISTRIBUTION WIDTH 14.8 % (11.5-14.5); WHITE BLOOD COUNT 3.5 10^3/ul (4.5-11.0)
--- NOTE | 2017-01-14 07:18 | CP.PCM.PN ---
<DatMendy - Last Filed: 01/14/17 07:15> Subjective - Date & Time of Evaluation Date of Evaluation: 01/14/17 Time of Evaluation: 07:15 - Subjective Subjective: Gastroenterology Fellow/PGY4 Progress Note Patient notes worsened abdominal pain with puree diet yesterday. Left upper abdomen pain, scale 8/10. Scant liquid stool in colostomy. A 12-point review of systems negative except for as above. Objective - Vital Signs/Intake and Output Vital Signs (last 24 hours): Temp Pulse Resp BP Pulse Ox 98.6 F 101 H 20 101/65 100 01/13/17 16:00 01/13/17 16:00 01/13/17 16:00 01/13/17 16:00 01/13/17 16:00 Intake and Output: 01/14/17 01/14/17 06:59 18:59 Intake Total 700 Output Total 100 Balance 600 - Medications Medications: Current Medications Digoxin (Lanoxin) 0.125 mg PO 1400 [facility] Last Admin: 01/13/17 14:19 Dose: 0.125 mg Famotidine (Pepcid) 20 mg IVP Q12 [facility] Last Admin: 01/13/17 21:58 Dose: 20 mg Furosemide (Lasix) 20 mg PO DAILY [facility] Last Admin: 01/13/17 10:02 Dose: 20 mg Heparin Sodium (Porcine) (Heparin) 5,000 units SC Q12 [facility] PRN Reason: Protocol Last Admin: 01/13/17 21:48 Dose: 5,000 units Hydromorphone HCl (Dilaudid) 1.5 mg IVP Q3H PRN PRN Reason: Pain, severe (8-10) Last Admin: 01/14/17 01:48 Dose: 1.5 mg Sodium Chloride (Sodium Chloride 0.9%) 1,000 mls @ 50 mls/hr IV .Q20H [facility] Last Admin: 01/14/17 01:49 Dose: 50 mls/hr Meropenem 1g/NS 100mL IVPB (Meropenem 1g/Ns 100ml Ivpb) 1 gm in 100 mls @ 100 mls/hr IVPB Q8 [facility] PRN Reason: Protocol Stop: 01/20/17 22:01 Last Admin: 01/14/17 06:09 Dose: 100 mls/hr Oxycodone/Acetaminophen (Percocet 10/325 Mg Tab) 1 tab PO Q6H PRN PRN Reason: Pain, moderate (4-7) Ursodiol (Actigall) 300 mg PO BID [facility] Last Admin: 01/13/17 17:29 Dose: 300 mg - Labs Labs: 01/13/17 06:30 01/13/17 06:30 PT 13.7 Seconds (9.9-11.8) H 01/09/17 20:07 INR 1.27 (0.93-1.08) H 01/09/17 20:07 APTT 29.2 Seconds (23.7-30.8) 01/09/17 20:07 - Constitutional Appears: Non-toxic, No Acute Distress - Head Exam Head Exam: ATRAUMATIC, NORMOCEPHALIC - Eye Exam Eye Exam: EOMI, PERRL Pupil Exam: PERRL. absent: Miosis, Mydriatic - ENT Exam ENT Exam: Mucous Membranes Moist, Normal Oropharynx - Neck Exam Neck Exam: Full ROM, Normal Inspection - Respiratory Exam Respiratory Exam: Clear to Ausculation Bilateral. absent: Rales, Rhonchi, Wheezes - Cardiovascular Exam Cardiovascular Exam: RRR, +S1, +S2. absent: Gallop, Rubs - GI/Abdominal Exam GI & Abdominal Exam: Soft, Tenderness, Normal Bowel Sounds. absent: Distended, Firm, Guarding, Rigid, Organomegaly, Rebound Additional comments: tenderness to palpation of right side of colostomy, LUQ colostomy site C/D/I, scant liquid brown stool - Extremities Exam Extremities Exam: Normal Inspection. 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 Laboratory findings showing conjugated hyperbilirubinemia and transaminitis. CT A/P and Ultrasound showed gallstones, sludge, and no biliary dilatations. Plan: >MRCP today with sedation under anesthesia >evaluate for choledocholelithiasis, mass >delineate need for EUS/ERCP >pending autoimmune workup >negative Hepatitis panel >daily LFTs >surgery following-appreciate recommendations >bowel regimen: Miralax BID, Dulcolax daily >supportive care pain control >Hem/Onc managing-received Neupogen, 1U pRBC on 01/11 >further recommendations based on MRCP results <Naya Mercado - Last Filed: 01/14/17 09:35> Objective - Vital Signs/Intake and Output Vital Signs (last 24 hours): Temp Pulse Resp BP Pulse Ox 98.0 F 92 H 18 99/66 L 96 01/14/17 06:00 01/14/17 06:00 01/14/17 06:00 01/14/17 06:00 01/14/17 06:00 Intake and Output: 01/14/17 01/14/17 06:59 18:59 Intake Total 700 Output Total 100 Balance 600 - Medications Medications: Current Medications Digoxin (Lanoxin) 0.125 mg PO 1400 [facility] Last Admin: 01/13/17 14:19 Dose: 0.125 mg Famotidine (Pepcid) 20 mg IVP Q12 [facility] Last Admin: 01/13/17 21:58 Dose: 20 mg Furosemide (Lasix) 20 mg PO DAILY [facility] Last Admin: 01/13/17 10:02 Dose: 20 mg Heparin Sodium (Porcine) (Heparin) 5,000 units SC Q12 [facility] PRN Reason: Protocol Last Admin: 01/13/17 21:48 Dose: 5,000 units Hydromorphone HCl (Dilaudid) 1.5 mg IVP Q3H PRN PRN Reason: Pain, severe (8-10) Last Admin: 01/14/17 08:16 Dose: 1.5 mg Sodium Chloride (Sodium Chloride 0.9%) 1,000 mls @ 50 mls/hr IV .Q20H [facility] Last Admin: 01/14/17 01:49 Dose: 50 mls/hr Meropenem 1g/NS 100mL IVPB (Meropenem 1g/Ns 100ml Ivpb) 1 gm in 100 mls @ 100 mls/hr IVPB Q8 [facility] PRN Reason: Protocol Stop: 01/20/17 22:01 Last Admin: 01/14/17 06:09 Dose: 100 mls/hr Oxycodone/Acetaminophen (Percocet 10/325 Mg Tab) 1 tab PO Q6H PRN PRN Reason: Pain, moderate (4-7) Polyethylene Glycol (Miralax) 17 gm PO BID [facility] Ursodiol (Actigall) 300 mg PO BID [facility] Last Admin: 01/13/17 17:29 Dose: 300 mg - Labs Labs: 01/14/17 06:00 01/14/17 06:00 PT 15.5 Seconds (9.9-11.8) H 01/14/17 06:00 INR 1.44 (0.93-1.08) H 01/14/17 06:00 APTT 29.2 Seconds (23.7-30.8) 01/09/17 20:07 Attending/Attestation - Attestation I have personally seen and examined this patient.: Yes I have fully participated in the care of the patient.: Yes I have reviewed all pertinent clinical information, including history, physical exam and plan: Yes Notes (Text): Patient seen and examined with GI fellow. Agree with his note as documented above with the following additions/exceptions. This is a 51 year old male h/o Waldenstrom's marcroglobulinemia on chemotherapy, pancytopenia, atrial fibrillation on anticoagulation, diverticulitis s/p Sharpe's (03/2016) with ostomy who is being seen for abdominal pain, abnormal LFTs. He complains of persistent abdominal pain. His LFTs are stable/improving, T bili downtrending. Will plan for MRCP evaluation today. He may need EUS/ERCP pending results. Follow up autoimmune serologies. Continue supportive care. 01/14/17 09:34
[2017-01-14 07:23] LABS: INR 1.44 (0.93-1.08)
[2017-01-14 07:32] LABS: ALB/GLOB RATIO 0.8 (1.1-1.8); ALKALINE PHOSPHATASE 431 U/L (38-133); ALT/SGPT 72 U/L (7-56); AST/SGOT 61 U/L (15-59); BLOOD UREA NITROGEN 5 mg/dL (7-21); CALCIUM 8.5 mg/dL (8.4-10.5); CARBON DIOXIDE 27 mmol/L (21-33); CHLORIDE 101 mmol/L (98-107); GFR AFRICAN-AMERICAN > 60; GLUCOSE,RANDOM 80 mg/dL (70-110); POTASSIUM 3.5 mmol/L (3.6-5.0); SODIUM 139 mmol/L (132-148); TOTAL PROTEIN 7.4 g/dL (5.8-8.3)
--- NOTE | 2017-01-14 09:40 | PN ---
DATE: 01/14/2017 SUBJECTIVE: The patient is lying in bed. The patient developed abdominal pain yesterday after takin g clear liquid diet. He has been asking for pain medications just about around the clock for both ab dominal pain and back pain. He denies any fevers or chills. PHYSICAL EXAMINATION: VITAL SIGNS: Reveal temperature of 97.7, blood pressure 126/75, heart rate is 67. HEENT: Reveals sclerae to be white, conjunctivae pale. NECK: Supple. CHEST: Reveals decreased breath sounds. HEART: Reveals an irregular rate. ABDOMEN: Soft. He has a left upper quadrant colostomy. There is minimal diffuse tenderness. EXTREMITIES: Show no edema. LABORATORY DATA: Reveal white blood cell count 3.5, hemoglobin 8.4, platelet count of 44,000. Labor atory data reveal AST down to 61, ALT 72, alkaline phosphatase 431, total bilirubin of 2. IMPRESSION: A 51-year-old male with multiple comorbidities including Waldenstrom's macroglobulinemia with pancytopenia, coronary artery disease, history of congestive heart failure, atrial fibrillation with elevated liver enzymes, gallstones and sludge on radiographic imaging. The patient has been as niecy for pain medications around the clock. He does have chronic pain syndrome, mostly involving his back. RECOMMENDATIONS: 1. The patient is to have an MRCP today with the assistance of anesthesiology due to his back pain a nd inability to lie flat for any significant period of time. 2. Note his diarrhea has improved. 3. Follow liver enzymes. Vinny House MD cc: [phone] TT: 01/14/2017 09:39:27 Confirmation # [id number] Dictation # [id number] tn
[2017-01-14] MEDS: POLYETHYLENE GLYCOL 3350 17 GM/Dose PACKET PO SCH ×3 (10:13→18:02)
--- NOTE | 2017-01-14 13:23 | PN ---
DATE: 01/14/2017 SUBJECTIVE: The patient is a 51-year-old, seen and examined, lying in bed. Seems to be anxious for MRCP to be done today. He wants to get this under anesthesia. Arrangement is being made by krystin NORMAN thesiologist. PHYSICAL EXAMINATION: GENERAL: He is awake and alert, communicative. VITAL SIGNS: He is afebrile, pulse 92, respirations 18, blood pressure 99/66. LUNGS: Bilateral fair air flow. HEART: S1, S2 audible. ABDOMEN: Soft, obese. Colostomy is functional, has liquid deep brown stool. EXTREMITIES: Bilateral leg +2 edema. LABORATORY EXAMINATION: WBC 3.5, hemoglobin 8.4, hematocrit 26.4, platelet 244. ASSESSMENT: 1. Waldenstrom macroglobulinemia. 2. History of hypertension. 3. Cardiomyopathy. 4. Cholelithiasis. 5. Status post constipation and fecal impaction that has improved. 6. Abnormal liver function tests. 7. Pancytopenia. 8. Chronic atrial fibrillation. PLAN: The patient will get an MRCP today with assistance of anesthesiology because of his back pain and we will keep him on clear liquids for now. He is receiving Neupogen. We will continue that and might be discontinued in the morning. We will continue on metronidazole. We will follow up CBC and CMP in a.m. Pepito Gavin MD cc: [phone] TT: 01/14/2017 13:23:18 Confirmation # [id number] Dictation # [id number] tn
[2017-01-14] MEDS: Digoxin 125 mcg (0.125 mg) Tab PO SCH (14:34)
[2017-01-14] MEDS: Vancomycin 25 MG/ML PO SCH ×2 (17:45→23:26)
--- NOTE | 2017-01-14 20:10 | CP.PCM.PN ---
Subjective - Date & Time of Evaluation Date of Evaluation: 01/14/17 Time of Evaluation: 10:00 - Subjective Subjective: SURGERY NOTE FOR DR. SANDERS 51M seen and examined at bedside. Patient resting comfortably continues to complain of mild abdominal pain. Objective - Vital Signs/Intake and Output Vital Signs (last 24 hours): Temp Pulse Resp BP Pulse Ox 98.0 F 85 19 98/65 L 99 01/14/17 16:00 01/14/17 16:00 01/14/17 16:00 01/14/17 16:00 01/14/17 16:00 - Medications Medications: Current Medications Digoxin (Lanoxin) 0.125 mg PO 1400 [facility] Last Admin: 01/14/17 14:34 Dose: 0.125 mg Famotidine (Pepcid) 20 mg IVP Q12 [facility] Last Admin: 01/14/17 10:13 Dose: 20 mg Furosemide (Lasix) 20 mg PO DAILY [facility] Last Admin: 01/14/17 10:21 Dose: Not Given Heparin Sodium (Porcine) (Heparin) 5,000 units SC Q12 [facility] PRN Reason: Protocol Last Admin: 01/14/17 10:13 Dose: 5,000 units Hydromorphone HCl (Dilaudid) 1.5 mg IVP Q3H PRN PRN Reason: Pain, severe (8-10) Last Admin: 01/14/17 17:53 Dose: 1.5 mg Sodium Chloride (Sodium Chloride 0.9%) 1,000 mls @ 50 mls/hr IV .Q20H [facility] Last Admin: 01/14/17 01:49 Dose: 50 mls/hr Meropenem 1g/NS 100mL IVPB (Meropenem 1g/Ns 100ml Ivpb) 1 gm in 100 mls @ 100 mls/hr IVPB Q8 [facility] PRN Reason: Protocol Stop: 01/20/17 22:01 Last Admin: 01/14/17 14:34 Dose: 100 mls/hr Oxycodone/Acetaminophen (Percocet 10/325 Mg Tab) 1 tab PO Q6H PRN PRN Reason: Pain, moderate (4-7) Polyethylene Glycol (Miralax) 17 gm PO BID [facility] Last Admin: 01/14/17 18:02 Dose: Not Given Ursodiol (Actigall) 300 mg PO BID [facility] Last Admin: 01/14/17 17:45 Dose: 300 mg Vancomycin HCl (Vancocin 25 Mg/Ml (Oral Use)) 250 mg PO QID [facility] PRN Reason: Protocol Last Admin: 01/14/17 17:45 Dose: 250 mg - Labs Labs: 01/14/17 06:00 01/14/17 06:00 PT 15.5 Seconds (9.9-11.8) H 01/14/17 06:00 INR 1.44 (0.93-1.08) H 01/14/17 06:00 APTT 29.2 Seconds (23.7-30.8) 01/09/17 20:07
--- NOTE | 2017-01-14 22:58 | PN ---
DATE: 01/14/2017 The patient seen earlier this morning in room 371, bed 2. He states he has generalized aches and chong ns. No fevers, no chills. PHYSICAL EXAMINATION: VITAL SIGNS: Temperature is 98, blood pressure is 100/60, respiratory rate 18. HEENT: Unremarkable. NECK: Supple. LUNGS: Have decreased breath sounds. HEART: Normal S1, S2. ABDOMEN: Soft, nontender. LABORATORY DATA: Reveals the patient's white count of 3.5, hemoglobin of 8, ____ 44. Chemistries ar e noted. LFTs are elevated. Microbiology reveals the patient's blood culture 1 bottle for corynebac terium, repeat cultures are negative. ASSESSMENT AND PLAN: This is a 51-year-old male who was seen earlier in room 371, bed 2 with possible cholecystitis and cholelithiasis and currently on meropenem and vancomycin, awaiting for further GI recommendations. Will follow closely with you. Anatoliy Luna MD cc: [phone] TT: 01/14/2017 22:57:54 Confirmation # [id number] Dictation # [id number] [email or web address]
[2017-01-15] MEDS: HYDROmorphone 2 mg/ml ISec IVP PRN ×6 (00:32→21:20)
[2017-01-15] MEDS: Meropenem 1g/NS 100mL IVPB 1 GM/100 ML PIGGYBACK IVPB SCH ×3 (05:55→21:24)
[2017-01-15 08:27] LABS: BASO # 0.01 K/mm3 (0.0-2.0); BASO % 0.3 % (0.0-3.0); EOS % 0.6 % (1.5-5.0); GRAN # 2.94 (1.4-6.5); GRAN % 81.4 % (50.0-68.0); HEMATOCRIT 29.1 % (42.0-52.0); LYMPH # 0.4 (1.2-3.4); LYMPH % 11.1 % (22.0-35.0); MEAN CELL VOLUME 104.7 fL (80.0-105.0); MEAN CORPUSCULAR HEMOGLOBIN 33.5 pg (25.0-35.0); MEAN PLATELET VOLUME 11.1 fl (7.0-11.0); MONO # 0.2 (0.1-0.6); MONO % 6.6 % (1.0-6.0); PLATELET COUNT 52 10^3/uL (120.0-450.0); RED CELL DISTRIBUTION WIDTH 15.2 % (11.5-14.5); WHITE BLOOD COUNT 3.6 10^3/ul (4.5-11.0)
[2017-01-15 08:29] LABS: ADD MANUAL DIFF? NO
--- NOTE | 2017-01-15 08:29 | CP.PCM.PN ---
<Mendy Daugherty - Last Filed: 01/15/17 11:55> Subjective - Date & Time of Evaluation Date of Evaluation: 01/15/17 Time of Evaluation: 08:26 - Subjective Subjective: Gastroenterology Fellow/PGY4 Progress Note Patient notes slight improvement in abdominal pain. Has not eaten by mouth due to exacerbation of pain with puree diet two days ago. Notes bowel movement yesterday-large liquid stool output, colostomy bag emptied overnight. A 12- point review of systems negative except for as above. Objective - Vital Signs/Intake and Output Vital Signs (last 24 hours): Temp Pulse Resp BP Pulse Ox 98.0 F 85 19 98/65 L 99 01/14/17 16:00 01/14/17 16:00 01/14/17 16:00 01/14/17 16:00 01/14/17 16:00 Intake and Output: 01/15/17 01/15/17 06:59 18:59 Intake Total 1600 0 Output Total 475 150 Balance 1125 -150 - Medications Medications: Current Medications Digoxin (Lanoxin) 0.125 mg PO 1400 [facility] Last Admin: 01/14/17 14:34 Dose: 0.125 mg Famotidine (Pepcid) 20 mg IVP Q12 [facility] Last Admin: 01/14/17 23:26 Dose: 20 mg Furosemide (Lasix) 20 mg PO DAILY [facility] Last Admin: 01/14/17 10:21 Dose: Not Given Heparin Sodium (Porcine) (Heparin) 5,000 units SC Q12 [facility] PRN Reason: Protocol Last Admin: 01/14/17 22:35 Dose: 5,000 units Hydromorphone HCl (Dilaudid) 1.5 mg IVP Q3H PRN PRN Reason: Pain, severe (8-10) Last Admin: 01/15/17 07:42 Dose: 1.5 mg Sodium Chloride (Sodium Chloride 0.9%) 1,000 mls @ 50 mls/hr IV .Q20H [facility] Last Admin: 01/14/17 23:29 Dose: 50 mls/hr Meropenem 1g/NS 100mL IVPB (Meropenem 1g/Ns 100ml Ivpb) 1 gm in 100 mls @ 100 mls/hr IVPB Q8 [facility] PRN Reason: Protocol Stop: 01/20/17 22:01 Last Admin: 01/15/17 05:55 Dose: 100 mls/hr Oxycodone/Acetaminophen (Percocet 10/325 Mg Tab) 1 tab PO Q6H PRN PRN Reason: Pain, moderate (4-7) Polyethylene Glycol (Miralax) 17 gm PO BID [facility] Last Admin: 01/14/17 18:02 Dose: Not Given Ursodiol (Actigall) 300 mg PO BID [facility] Last Admin: 01/14/17 17:45 Dose: 300 mg Vancomycin HCl (Vancocin 25 Mg/Ml (Oral Use)) 250 mg PO QID [facility] PRN Reason: Protocol Last Admin: 01/14/17 23:26 Dose: 250 mg - Labs Labs: 01/14/17 06:00 01/14/17 06:00 PT 15.5 Seconds (9.9-11.8) H 01/14/17 06:00 INR 1.44 (0.93-1.08) H 01/14/17 06:00 APTT 29.2 Seconds (23.7-30.8) 01/09/17 20:07 - Constitutional Appears: Non-toxic, No Acute Distress - Head Exam Head Exam: ATRAUMATIC, NORMOCEPHALIC - Eye Exam Eye Exam: EOMI, PERRL Pupil Exam: PERRL. absent: Miosis, Mydriatic - ENT Exam ENT Exam: Mucous Membranes Moist, Normal Oropharynx - Neck Exam Neck Exam: Full ROM, Normal Inspection - Respiratory Exam Respiratory Exam: Clear to Ausculation Bilateral. absent: Rales, Rhonchi, Wheezes - Cardiovascular Exam Cardiovascular Exam: RRR, +S1, +S2. absent: Gallop, Rubs - GI/Abdominal Exam GI & Abdominal Exam: Soft, Tenderness, Normal Bowel Sounds. 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 Laboratory findings showing conjugated hyperbilirubinemia and transaminitis. CT A/P and Ultrasound showed gallstones, sludge, and no biliary dilatations. Plan: >MRCP today with sedation under anesthesia -evaluate for choledocholelithiasis, mass >delineate need for EUS/ERCP >negative Hepatitis panel, CARLA, ASMA, AMA >LFTs downtrending >bowel regimen: Miralax BID >clear liquid diet >further recommendations based on MRCP results <Art Newsome - Last Filed: 01/15/17 14:52> Objective - Vital Signs/Intake and Output Vital Signs (last 24 hours): Temp Pulse Resp BP Pulse Ox 97.7 F 106 H 15 100/60 99 01/15/17 13:51 01/15/17 13:51 01/15/17 13:51 01/15/17 13:51 01/15/17 13:51 Intake and Output: 01/15/17 01/15/17 06:59 18:59 Intake Total 1600 0 Output Total 475 150 Balance 1125 -150 - Medications Medications: Current Medications Digoxin (Lanoxin) 0.125 mg PO 1400 [facility] Last Admin: 01/14/17 14:34 Dose: 0.125 mg Famotidine (Pepcid) 20 mg IVP Q12 [facility] Last Admin: 01/15/17 10:08 Dose: 20 mg Furosemide (Lasix) 20 mg PO DAILY [facility] Last Admin: 01/15/17 10:09 Dose: Not Given Heparin Sodium (Porcine) (Heparin) 5,000 units SC Q12 [facility] PRN Reason: Protocol Last Admin: 01/15/17 10:09 Dose: 5,000 units Hydromorphone HCl (Dilaudid) 1.5 mg IVP Q3H PRN PRN Reason: Pain, severe (8-10) Last Admin: 01/15/17 10:58 Dose: 1.5 mg Sodium Chloride (Sodium Chloride 0.9%) 1,000 mls @ 50 mls/hr IV .Q20H [facility] Last Admin: 01/14/17 23:29 Dose: 50 mls/hr Meropenem 1g/NS 100mL IVPB (Meropenem 1g/Ns 100ml Ivpb) 1 gm in 100 mls @ 100 mls/hr IVPB Q8 [facility] PRN Reason: Protocol Stop: 01/20/17 22:01 Last Admin: 01/15/17 05:55 Dose: 100 mls/hr Oxycodone/Acetaminophen (Percocet 10/325 Mg Tab) 1 tab PO Q6H PRN PRN Reason: Pain, moderate (4-7) Polyethylene Glycol (Miralax) 17 gm PO BID [facility] Last Admin: 01/15/17 10:09 Dose: Not Given Ursodiol (Actigall) 300 mg PO BID [facility] Last Admin: 01/15/17 10:08 Dose: 300 mg Vancomycin HCl (Vancocin 25 Mg/Ml (Oral Use)) 250 mg PO QID [facility] PRN Reason: Protocol Last Admin: 01/15/17 10:07 Dose: 250 mg - Labs Labs: 01/15/17 08:00 01/15/17 09:20 PT 15.5 Seconds (9.9-11.8) H 01/14/17 06:00 INR 1.44 (0.93-1.08) H 01/14/17 06:00 APTT 29.2 Seconds (23.7-30.8) 01/09/17 20:07 Attending/Attestation - Attestation I have personally seen and examined this patient.: Yes I have fully participated in the care of the patient.: Yes I have reviewed all pertinent clinical information, including history, physical exam and plan: Yes Notes (Text): 01/15/17 14:47 I have seen and examined patient with GI fellow. No acute events overnight. He continues to endorse abdominal pain which is worse following meal consumption. He denies nausea, vomiting, fever/chills. He is tolerating PO diet, but is fearful to eat due to pain episodes. Waldenstrom's macroglobulinemia Atrial fibrillation H/o diverticulitis s/p sharpe's Abdominal pain, elevated LFTs - Patient scheduled for MRCP evaluation today to rule out choledocholithiasis, will follow up results - Continue to monitor LFTs - Liquid diet as tolerated - Will continue to monitor patient clinical course
[2017-01-15 09:47] LABS: ALB/GLOB RATIO 0.7 (1.1-1.8); ALKALINE PHOSPHATASE 348 U/L (38-133); ALT/SGPT 58 U/L (7-56); AST/SGOT 37 U/L (15-59); BILIRUBIN,TOTAL 1.7 mg/dL (0.2-1.3); BLOOD UREA NITROGEN 4 mg/dL (7-21); CALCIUM 8.9 mg/dL (8.4-10.5); CARBON DIOXIDE 28 mmol/L (21-33); CHLORIDE 100 mmol/L (95-110); GFR AFRICAN-AMERICAN > 60; GLUCOSE,RANDOM 83 mg/dL (70-110); POTASSIUM 3.2 mmol/L (3.6-5.0); SODIUM 140 mmol/L (132-148); TOTAL PROTEIN 7.3 g/dL (5.8-8.3)
[2017-01-15] MEDS: Vancomycin 25 MG/ML PO SCH ×4 (10:07→22:50)
[2017-01-15] MEDS: POLYETHYLENE GLYCOL 3350 17 GM/Dose PACKET PO SCH ×2 (10:09→17:52)
--- NOTE | 2017-01-15 10:57 | CP.PCM.PN ---
Subjective - Date & Time of Evaluation Date of Evaluation: 01/15/17 Time of Evaluation: 07:10 - Subjective Subjective: SURGERY PROGRESS NOTE FOR DR. SANDERS 51M seen and examined at bedside. Patient continues to complain of diffuses mild abdominal pain. Ostomy patent Objective - Vital Signs/Intake and Output Vital Signs (last 24 hours): Temp Pulse Resp BP Pulse Ox 97.5 F L 98 H 19 100/65 100 01/15/17 10:39 01/15/17 10:39 01/15/17 10:39 01/15/17 10:39 01/15/17 10:39 Intake and Output: 01/15/17 01/15/17 06:59 18:59 Intake Total 1600 0 Output Total 475 150 Balance 1125 -150 - Medications Medications: Current Medications Digoxin (Lanoxin) 0.125 mg PO 1400 [facility] Last Admin: 01/14/17 14:34 Dose: 0.125 mg Famotidine (Pepcid) 20 mg IVP Q12 [facility] Last Admin: 01/15/17 10:08 Dose: 20 mg Furosemide (Lasix) 20 mg PO DAILY [facility] Last Admin: 01/15/17 10:09 Dose: Not Given Heparin Sodium (Porcine) (Heparin) 5,000 units SC Q12 [facility] PRN Reason: Protocol Last Admin: 01/15/17 10:09 Dose: 5,000 units Hydromorphone HCl (Dilaudid) 1.5 mg IVP Q3H PRN PRN Reason: Pain, severe (8-10) Last Admin: 01/15/17 07:42 Dose: 1.5 mg Sodium Chloride (Sodium Chloride 0.9%) 1,000 mls @ 50 mls/hr IV .Q20H [facility] Last Admin: 01/14/17 23:29 Dose: 50 mls/hr Meropenem 1g/NS 100mL IVPB (Meropenem 1g/Ns 100ml Ivpb) 1 gm in 100 mls @ 100 mls/hr IVPB Q8 [facility] PRN Reason: Protocol Stop: 01/20/17 22:01 Last Admin: 01/15/17 05:55 Dose: 100 mls/hr Potassium Chloride (Potassium Chloride 10 Meq/100 Ml) 100 mls @ 100 mls/hr IVPB Q2H [facility] Stop: 01/15/17 13:59 Oxycodone/Acetaminophen (Percocet 10/325 Mg Tab) 1 tab PO Q6H PRN PRN Reason: Pain, moderate (4-7) Polyethylene Glycol (Miralax) 17 gm PO BID [facility] Last Admin: 01/15/17 10:09 Dose: Not Given Ursodiol (Actigall) 300 mg PO BID [facility] Last Admin: 01/15/17 10:08 Dose: 300 mg Vancomycin HCl (Vancocin 25 Mg/Ml (Oral Use)) 250 mg PO QID [facility] PRN Reason: Protocol Last Admin: 01/15/17 10:07 Dose: 250 mg - Labs Labs: 01/15/17 08:00 01/15/17 09:20 PT 15.5 Seconds (9.9-11.8) H 01/14/17 06:00 INR 1.44 (0.93-1.08) H 01/14/17 06:00 APTT 29.2 Seconds (23.7-30.8) 01/09/17 20:07 - Constitutional Appears: Non-toxic, No Acute Distress - Respiratory Exam Respiratory Exam: Clear to Ausculation Bilateral, NORMAL BREATHING PATTERN - Cardiovascular Exam Cardiovascular Exam: REGULAR RHYTHM, +S1, +S2 - GI/Abdominal Exam GI & Abdominal Exam: Soft, Tenderness. absent: Distended, Firm, Guarding, Rigid , Rebound Assessment and Plan - Assessment and Plan (Free Text) Assessment: 51M abdominal pain 2/2 gallbladder origin, elevated T.bili Plan: - plan for MRCP with sedation today - poss ERCP afterward - await MRCP Further recs discuss with Dr. Chace Ghosh, PGY1
[2017-01-15] MEDS ORDERED: Potassium Chloride 10 mEq 100 ML IVPB SCH (11:00)
[2017-01-15] MEDS ORDERED: Midazolam 2 MG/2 ML VIAL ONE (11:13)
[2017-01-15] MEDS ORDERED: Propofol 10 mg/ml Inj (20 ML) ONE (11:13)
[2017-01-15] MEDS ORDERED: Midazolam 5 MG/5 ML VIAL ONE (11:14)
[2017-01-15] MEDS ORDERED: Sodium Chloride 0.9% 1,000 ML IV SCH (12:45)
--- NOTE | 2017-01-15 13:25 | MRI ---
PROCEDURE: Magnetic Resonance Cholangiopancreatography HISTORY: Elevated liver function tests. Rule out choledocholithiasis COMPARISON: None available. TECHNIQUE: Multiplanar, multisequence MR images of the abdomen were obtained, including heavily T2 weighted MRCP images of the biliary system. Rotating maximum intensity projection images of the biliary system were generated. FINDINGS: MRCP: The common bile duct measures 10 mm in diameter. There are 1 or 2 small stones seen in the distal common duct each measuring 3 mm in diameter findings are seen on axial images 13 and 14 series 3 and 5. Findings are also seen on image 4 series 11. LIVER: Unremarkable. GALLBLADDER: Multiple small stones are layered in the gallbladder. There is also a layer of sludge. SPLEEN: The spleen is enlarged measuring 12 x 15 cm. PANCREAS: Unremarkable. ADRENALS: Unremarkable. KIDNEYS: Unremarkable. AORTA: No aneurysm. ASCITES: None. OTHER FINDINGS: None. IMPRESSION: Multiple stones layered in the gallbladder as well as gallbladder sludge. 1 or 2 small stones in the distal common duct. Mild dilatation of the common duct
[2017-01-15] MEDS: Digoxin 125 mcg (0.125 mg) Tab PO SCH (15:30)
--- NOTE | 2017-01-15 16:15 | PN ---
DATE: 01/15/2017 The patient is in bed, in no acute distress, nontoxic. PHYSICAL EXAMINATION: VITAL SIGNS: Temperature is 97, blood pressure is 98/60, respiratory rate of 18. HEENT: Unremarkable. NECK: Supple. LUNGS: Have decreased breath sounds. HEART: Normal S1, S2. ABDOMEN: Soft. LABORATORY EXAMINATION: Reveals the patient's white count of 3.6, hemoglobin of 9, platelets of 52. ASSESSMENT AND PLAN: A 51-year-old male who was seen earlier today with possible cholecystitis and c holelithiasis, on vancomycin and meropenem. The patient did have a magnetic resonance cholangiopancr eatography, which showed multiple gallstones layered in gallbladder as well as the gallbladder sludge and stones in distal common duct, mild dilatation of the common duct. Microbiology reveals the Isiah nebacterium species in the blood. Repeat blood cultures are all negative, corynebacterium in 1 bottl e. The stool for Clostridium difficile is positive antigen. ASSESSMENT AND PLAN: A 51-year-old with pseudomembranous colitis with p.o. Flagyl and IV meropenem f or biliary tree, awaiting for GI definitive procedure for positive magnetic resonance cholangiopancre atography and dilated ducts, biliary tree, for possible endoscopic retrograde cholangiopancreatogram tomorrow. Anatoliy Luna MD cc: [phone] TT: 01/15/2017 14:42:17 Confirmation # [id number] Dictation # [id number] en
--- NOTE | 2017-01-15 16:31 | PN ---
DATE: 01/15/2017 The patient is a 51-year-old, seen and examined, still has abdominal discomfort extending to right up per, middle, and the left upper quadrant. He still has diarrhea. Not keen to eat. He states it giv es him pain. PHYSICAL EXAMINATION: VITAL SIGNS: He is afebrile, pulse 106, respirations 15, blood pressure 100/60. LUNGS: Bilateral fair airflow, no rhonchi or crackle. HEART: S1, S2 audible. ABDOMEN: Soft, has liquid brownish stool in his bag. EXTREMITIES: Bilateral legs, no edema. LABORATORY EXAMINATION: WBCs 3.6, hemoglobin 9.3, hematocrit 29, platelets of 52. Chemistry: Sodiu m is 140, potassium 3.2, chloride 100, CO2 28, BUN 4, creatinine 0.5, blood sugar of 83, total biliru bin 1.7, his AST is 58, alkaline phosphatase is 348. The patient had stool for C. diff done that is positive. Had MRCP done that shows obstruction in the distal common bile duct, multiple small stones. They are layered in the gallbladder as well as gallbladder sludge, 2 stones in the distal common bile duct, m ild dilatation of the common duct. ASSESSMENT: 1. Pancytopenia. 2. Waldenstrom macrogammaglobulinemia. 3. Chronic atrial fibrillation. 4. Cardiomyopathy. 5. History of hypertension. 6. Stool for Clostridium difficile positive. PLAN: Discussed with GI, plan for ERCP on Wednesday. We will give Pletal prior and during the procedur e. Analgesic as needed. Currently, patient is on Neupogen. We will continue that. He is on deep v enous thrombosis prophylaxis. Continue him on meropenem. He has been started on p.o. vancomycin. W ill follow up CBC and CMP in a.m. Pepito Gavin MD cc: [phone] TT: 01/15/2017 16:30:50 Confirmation # [id number] Dictation # [id number] en
[2017-01-15] MEDS: Sodium Chloride 0.9% 1,000 ML IV SCH (23:14)
[2017-01-16 00:22] LABS: LKM-1 Ab (IgG) <=20.0 U (<=20.0)
[2017-01-16] MEDS: HYDROmorphone 2 mg/ml ISec IVP PRN ×7 (00:30→21:01)
[2017-01-16] MEDS: Meropenem 1g/NS 100mL IVPB 1 GM/100 ML PIGGYBACK IVPB SCH ×3 (06:33→22:27)
[2017-01-16] MEDS: Sodium Chloride 0.9% 1,000 ML IV SCH ×2 (06:34→21:03)
--- NOTE | 2017-01-16 07:49 | CP.PCM.PN ---
<DatMendy - Last Filed: 01/16/17 11:14> Subjective - Date & Time of Evaluation Date of Evaluation: 01/16/17 Time of Evaluation: 07:46 - Subjective Subjective: Gastroenterology Fellow/PGY4 Progress Note Patient notes unchanged abdominal pain with clear liquids. Tolerating water and ice chips. Notes daily bowel habit with liquid stool in colostomy bag. A 12- point review of systems negative except for as above. Objective - Vital Signs/Intake and Output Vital Signs (last 24 hours): Temp Pulse Resp BP Pulse Ox 98.9 F 98 H 18 94/61 L 100 01/15/17 16:00 01/15/17 16:00 01/15/17 16:00 01/15/17 16:00 01/15/17 16:00 Intake and Output: 01/16/17 01/16/17 06:59 18:59 Intake Total 780 Output Total 700 Balance 80 - Medications Medications: Current Medications Digoxin (Lanoxin) 0.125 mg PO 1400 [facility] Last Admin: 01/15/17 15:30 Dose: 0.125 mg Famotidine (Pepcid) 20 mg IVP Q12 [facility] Last Admin: 01/15/17 21:25 Dose: 20 mg Furosemide (Lasix) 20 mg PO DAILY [facility] Last Admin: 01/15/17 10:09 Dose: Not Given Heparin Sodium (Porcine) (Heparin) 5,000 units SC Q12 [facility] PRN Reason: Protocol Last Admin: 01/15/17 21:23 Dose: 5,000 units Hydromorphone HCl (Dilaudid) 1.5 mg IVP Q3H PRN PRN Reason: Pain, severe (8-10) Last Admin: 01/16/17 06:35 Dose: 1.5 mg Sodium Chloride (Sodium Chloride 0.9%) 1,000 mls @ 50 mls/hr IV .Q20H [facility] Last Admin: 01/16/17 06:34 Dose: 50 mls/hr Meropenem 1g/NS 100mL IVPB (Meropenem 1g/Ns 100ml Ivpb) 1 gm in 100 mls @ 100 mls/hr IVPB Q8 [facility] PRN Reason: Protocol Stop: 01/20/17 22:01 Last Admin: 01/16/17 06:33 Dose: 100 mls/hr Oxycodone/Acetaminophen (Percocet 10/325 Mg Tab) 1 tab PO Q6H PRN PRN Reason: Pain, moderate (4-7) Polyethylene Glycol (Miralax) 17 gm PO BID [facility] Last Admin: 01/15/17 17:52 Dose: Not Given Ursodiol (Actigall) 300 mg PO BID [facility] Last Admin: 01/15/17 17:51 Dose: 300 mg Vancomycin HCl (Vancocin 25 Mg/Ml (Oral Use)) 250 mg PO QID [facility] PRN Reason: Protocol Last Admin: 01/15/17 22:50 Dose: 250 mg - Labs Labs: 01/15/17 08:00 01/15/17 09:20 PT 15.5 Seconds (9.9-11.8) H 01/14/17 06:00 INR 1.44 (0.93-1.08) H 01/14/17 06:00 APTT 29.2 Seconds (23.7-30.8) 01/09/17 20:07 - Constitutional Appears: Non-toxic, No Acute Distress, Chronically Ill - Head Exam Head Exam: ATRAUMATIC, NORMOCEPHALIC - Eye Exam Eye Exam: EOMI, PERRL Pupil Exam: PERRL. absent: Miosis, Mydriatic - ENT Exam ENT Exam: Mucous Membranes Moist, Normal Oropharynx - Neck Exam Neck Exam: Full ROM, Normal Inspection - Respiratory Exam Respiratory Exam: Clear to Ausculation Bilateral. absent: Rales, Rhonchi, Wheezes - Cardiovascular Exam Cardiovascular Exam: RRR, +S1, +S2. absent: Gallop, Rubs - GI/Abdominal Exam GI & Abdominal Exam: Soft, Tenderness, Normal Bowel Sounds. 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 Laboratory findings showing conjugated hyperbilirubinemia and transaminitis. CT A/P and Ultrasound showed gallstones, sludge, and no biliary dilatations. Plan: >01/16 MRCP- cholelithiasis, choledocholelithiasis, CBD 10mm >dsxheduled for EGD/EUS/ERCP Wednesday >daily LFTs, INR, Platelets, INR >hold pool of platelets >transfuse to goal Platelets > 50 >FFP if INR >1.5 >type and cross >replace electrolytes as needed-ordered KCl 20mEq x 2 doses >ensure medially optimized for procedure Wednesday >diet as tolerated, NPO after midnight on Wednesday >will follow clinical course <Naya Mercado - Last Filed: 01/16/17 11:35> Objective - Vital Signs/Intake and Output Vital Signs (last 24 hours): Temp Pulse Resp BP Pulse Ox 97.5 F L 83 18 95/65 L 99 01/16/17 06:00 01/16/17 06:00 01/16/17 06:00 01/16/17 06:00 01/16/17 06:00 Intake and Output: 01/16/17 01/16/17 06:59 18:59 Intake Total 780 Output Total 700 Balance 80 - Medications Medications: Current Medications Digoxin (Lanoxin) 0.125 mg PO 1400 [facility] Last Admin: 01/15/17 15:30 Dose: 0.125 mg Famotidine (Pepcid) 20 mg IVP Q12 [facility] Last Admin: 01/16/17 10:06 Dose: 20 mg Furosemide (Lasix) 20 mg PO DAILY [facility] Last Admin: 01/16/17 09:15 Dose: Not Given Heparin Sodium (Porcine) (Heparin) 5,000 units SC Q12 [facility] PRN Reason: Protocol Last Admin: 01/16/17 09:15 Dose: 5,000 units Hydromorphone HCl (Dilaudid) 1.5 mg IVP Q3H PRN PRN Reason: Pain, severe (8-10) Last Admin: 01/16/17 10:08 Dose: 1.5 mg Sodium Chloride (Sodium Chloride 0.9%) 1,000 mls @ 50 mls/hr IV .Q20H [facility] Last Admin: 01/16/17 06:34 Dose: 50 mls/hr Meropenem 1g/NS 100mL IVPB (Meropenem 1g/Ns 100ml Ivpb) 1 gm in 100 mls @ 100 mls/hr IVPB Q8 [facility] PRN Reason: Protocol Stop: 01/20/17 22:01 Last Admin: 01/16/17 06:33 Dose: 100 mls/hr Potassium Chloride (Potassium Chloride 20 Meq/100 Ml) 20 meq in 100 mls @ 50 mls/hr IVPB Q2H [facility] Stop: 01/16/17 15:14 Oxycodone/Acetaminophen (Percocet 10/325 Mg Tab) 1 tab PO Q6H PRN PRN Reason: Pain, moderate (4-7) Polyethylene Glycol (Miralax) 17 gm PO BID [facility] Last Admin: 01/15/17 17:52 Dose: Not Given Ursodiol (Actigall) 300 mg PO BID [facility] Last Admin: 01/16/17 09:14 Dose: 300 mg Vancomycin HCl (Vancocin 25 Mg/Ml (Oral Use)) 250 mg PO QID [facility] PRN Reason: Protocol Last Admin: 01/16/17 09:16 Dose: 250 mg - Labs Labs: 01/16/17 07:00 01/16/17 07:00 PT 14.8 Seconds (9.9-11.8) H 01/16/17 07:00 INR 1.37 (0.93-1.08) H 01/16/17 07:00 APTT 29.2 Seconds (23.7-30.8) 01/09/17 20:07 Attending/Attestation - Attestation I have personally seen and examined this patient.: Yes I have fully participated in the care of the patient.: Yes I have reviewed all pertinent clinical information, including history, physical exam and plan: Yes Notes (Text): Patient seen and examined with GI fellow. Agree with her note as documented above with the following additions/exceptions. This is a 51 year old male h/o Waldenstrom's marcroglobulinemia on chemotherapy, pancytopenia, atrial fibrillation on anticoagulation, diverticulitis s/p Sharpe's (03/2016) with ostomy who is being seen for abdominal pain, abnormal LFTs. Cdiff toxin positive on PO vancomycin. MRCP shows cholelithiasis, choledocholithiasis with dilated CBD. He reports that his abdominal pain is stable and he tolerated liquids yesterday. Continue supportive care. Continue antibiotic therapy. Will tentatively plan for EUS/ERCP Wednesday. 01/16/17 11:32
[2017-01-16 08:01] LABS: EOS % 0.4 % (1.5-5.0); GRAN # 1.95 (1.4-6.5); GRAN % 83.7 % (50.0-68.0); LYMPH # 0.2 (1.2-3.4); LYMPH % 10.3 % (22.0-35.0); MEAN CORPUSCULAR HEMOGLOBIN 33.2 pg (25.0-35.0); MEAN CORPUSCULAR HGB CONC 31.9 g/dl (31.0-37.0); MEAN PLATELET VOLUME 9.2 fl (7.0-11.0); MONO # 0.1 (0.1-0.6); MONO % 5.6 % (1.0-6.0); PLATELET COUNT 46 10^3/uL (120.0-450.0); RED CELL DISTRIBUTION WIDTH 14.8 % (11.5-14.5)
[2017-01-16 08:11] LABS: INR 1.37 (0.93-1.08)
[2017-01-16 08:16] LABS: ALB/GLOB RATIO 0.7 (1.1-1.8); ALKALINE PHOSPHATASE 344 U/L (38-133); ALT/SGPT 53 U/L (7-56); AST/SGOT 33 U/L (15-59); BILIRUBIN,TOTAL 1.7 mg/dL (0.2-1.3); BLOOD UREA NITROGEN 3 mg/dL (7-21); CALCIUM 8.8 mg/dL (8.4-10.5); CARBON DIOXIDE 32 mmol/L (21-33); CHLORIDE 99 mmol/L (98-107); GFR AFRICAN-AMERICAN > 60; GLUCOSE,RANDOM 81 mg/dL (70-110); POTASSIUM 3.2 mmol/L (3.6-5.0); SODIUM 139 mmol/L (132-148); TOTAL PROTEIN 7.1 g/dL (5.8-8.3)
[2017-01-16 08:25] LABS: WHITE BLOOD COUNT 2.3 10^3/ul (4.5-11.0)
[2017-01-16 08:26] LABS: ADD MANUAL DIFF? NO
[2017-01-16] MEDS: Vancomycin 25 MG/ML PO SCH ×4 (09:16→22:28)
[2017-01-16] MEDS: POLYETHYLENE GLYCOL 3350 17 GM/Dose PACKET PO SCH ×2 (14:11→17:43)
[2017-01-16] MEDS: Digoxin 125 mcg (0.125 mg) Tab PO SCH (14:40)
--- NOTE | 2017-01-16 17:41 | PN ---
DATE: 01/16/2017 SUBJECTIVE: The patient is 51 years old, seen and examined, lying in bed. Seems to be comfortable. He is complaining of abdominal pain after eating, even liquids. No nausea, no vomiting, no diarrhea . PHYSICAL EXAMINATION: VITAL SIGNS: He is afebrile, pulse 99, respirations 19, blood pressure 93/54. LUNGS: Bilateral fair airflow, no rhonchi or crackle. HEART: S1, S2 audible. ABDOMEN: Soft, obese. His colostomy is draining dark brown liquid stool. NEUROLOGIC: He is awake and alert, communicative. LABORATORY EXAMINATION: WBC is 2.3, hemoglobin 8.3, hematocrit 26, platelets 46. Status post MRCP s howing cholelithiasis, biliary sludge and impacted stones in the distal common bile duct. ASSESSMENT: 1. Pancytopenia. 2. Waldenstrom macroglobulinemia. 3. History of hypertension. 4. Chronic atrial fibrillation. 5. Cardiomyopathy. 6. Stool positive for clostridium difficile. PLAN: Will continue the patient on current medication. He is scheduled to have ERCP done on Wednesday of platelets. I will reevaluate the patient in the a.m. Pepito Gavin MD cc: [phone] TT: 01/16/2017 17:40:48 Confirmation # [id number] Dictation # [id number] dn
--- NOTE | 2017-01-16 17:59 | CP.PCM.PN ---
Subjective - Date & Time of Evaluation Date of Evaluation: 01/16/17 Time of Evaluation: 17:55 - Subjective Subjective: Surgery: Dr. Mas Pt seen and examined. Pt still has abd discomfort. Pt states that he is hungry and would like to eat despite this. Objective - Vital Signs/Intake and Output Vital Signs (last 24 hours): Temp Pulse Resp BP Pulse Ox 98 F 99 H 19 93/54 L 99 01/16/17 16:15 01/16/17 16:15 01/16/17 16:15 01/16/17 16:15 01/16/17 06:00 Intake and Output: 01/16/17 01/16/17 06:59 18:59 Intake Total 780 Output Total 700 Balance 80 - Medications Medications: Current Medications Digoxin (Lanoxin) 0.125 mg PO 1400 [facility] Last Admin: 01/16/17 14:40 Dose: 0.125 mg Famotidine (Pepcid) 20 mg IVP Q12 [facility] Last Admin: 01/16/17 10:06 Dose: 20 mg Furosemide (Lasix) 20 mg PO DAILY [facility] Last Admin: 01/16/17 09:15 Dose: Not Given Heparin Sodium (Porcine) (Heparin) 5,000 units SC Q12 [facility] PRN Reason: Protocol Last Admin: 01/16/17 09:15 Dose: 5,000 units Hydromorphone HCl (Dilaudid) 1.5 mg IVP Q3H PRN PRN Reason: Pain, severe (8-10) Last Admin: 01/16/17 13:29 Dose: 1.5 mg Sodium Chloride (Sodium Chloride 0.9%) 1,000 mls @ 50 mls/hr IV .Q20H [facility] Last Admin: 01/16/17 06:34 Dose: 50 mls/hr Meropenem 1g/NS 100mL IVPB (Meropenem 1g/Ns 100ml Ivpb) 1 gm in 100 mls @ 100 mls/hr IVPB Q8 [facility] PRN Reason: Protocol Stop: 01/20/17 22:01 Last Admin: 01/16/17 14:09 Dose: 100 mls/hr Oxycodone/Acetaminophen (Percocet 10/325 Mg Tab) 1 tab PO Q6H PRN PRN Reason: Pain, moderate (4-7) Polyethylene Glycol (Miralax) 17 gm PO BID [facility] Last Admin: 01/16/17 14:11 Dose: Not Given Ursodiol (Actigall) 300 mg PO BID [facility] Last Admin: 01/16/17 09:14 Dose: 300 mg Vancomycin HCl (Vancocin 25 Mg/Ml (Oral Use)) 250 mg PO QID [facility] PRN Reason: Protocol Last Admin: 01/16/17 14:10 Dose: 250 mg - Labs Labs: 01/16/17 07:00 01/16/17 07:00 PT 14.8 Seconds (9.9-11.8) H 01/16/17 07:00 INR 1.37 (0.93-1.08) H 01/16/17 07:00 APTT 29.2 Seconds (23.7-30.8) 01/09/17 20:07 - Constitutional Appears: Non-toxic, No Acute Distress - Head Exam Head Exam: ATRAUMATIC, NORMOCEPHALIC - Eye Exam Eye Exam: EOMI. absent: Scleral icterus - ENT Exam ENT Exam: Mucous Membranes Moist - Neck Exam Neck Exam: Full ROM - Respiratory Exam Respiratory Exam: NORMAL BREATHING PATTERN. absent: Accessory Muscle Use, Respiratory Distress - GI/Abdominal Exam GI & Abdominal Exam: Soft, Tenderness (mild). absent: Distended, Firm, Guarding , Rigid, Rebound - Neurological Exam Neurological Exam: Alert, Awake, Oriented x3 Assessment and Plan - Assessment and Plan (Free Text) Assessment: 51M w. cholecystitis and choledocholtihaisis -MRCP + distal CBD stones -For EUS/ERCP on Wednesday -will plan for cholecystectomy accordingly -FLD -c/w current medical tx -d.w attending Zemaitis PGY2
--- NOTE | 2017-01-16 19:59 | PN ---
DATE: 01/16/2017 The patient is in bed in no acute distress. PHYSICAL EXAMINATION: VITAL SIGNS: Temperature is 98, blood pressure is 100/50, respiratory rate of 18, heart rate of 83. HEENT: Unremarkable. NECK: Supple. LUNGS: Have decreased breath sounds. HEART: Normal S1, S2. ABDOMEN: Soft, nontender. LABORATORY DATA: Reveals a white count of 2.3, hemoglobin of 8, BUN of 3, creatinine of 0.5. Toxico logy is noted. Serology is reviewed. Microbiology is noted. Stool for C. diff reveals antigen is p ositive, but the toxin is negative. Review of the orders reveals the patient to be on IV Flagyl, 1 dose, currently on IV meropenem and p. o. vancomycin. ASSESSMENT AND PLAN: This is a 51-year-old with pseudomembranous colitis on IV meropenem for biliary tree and positive MRCP of the ducts, and pseudomembranous colitis, on p.o. vancomycin. Dr. Elvis Simon' note is reviewed. The patient is scheduled for EUS and ERCP on Wednesday, and possible cholec ystectomy. Will follow closely with you. Anatoliy Luna MD cc: [phone] TT: 01/16/2017 19:58:56 Confirmation # [id number] Dictation # [id number] [email or web address]
[2017-01-17] MEDS: HYDROmorphone 2 mg/ml ISec IVP PRN ×6 (00:09→21:48)
--- NOTE | 2017-01-17 06:28 | CP.PCM.PN ---
<DatMendy - Last Filed: 01/17/17 07:37> Subjective - Date & Time of Evaluation Date of Evaluation: 01/17/17 Time of Evaluation: 06:24 - Subjective Subjective: Gastroenterology Fellow/PGY4 Progress Note Patient notes unchanged right upper abdomen pain, pain scale 8/10. Notes loss of appetite with minimal intake of clear liquid diet. Tolerating water and ice chips. Notes daily bowel habit with liquid stool in colostomy bag. A 12-point review of systems negative except for as above. Objective - Vital Signs/Intake and Output Vital Signs (last 24 hours): Temp Pulse Resp BP Pulse Ox 98 F 99 H 19 93/54 L 99 01/16/17 16:15 01/16/17 16:15 01/16/17 16:15 01/16/17 16:15 01/16/17 06:00 Intake and Output: 01/16/17 01/17/17 18:59 06:59 Intake Total 240 Output Total 200 Balance 40 - Medications Medications: Current Medications Digoxin (Lanoxin) 0.125 mg PO 1400 [facility] Last Admin: 01/16/17 14:40 Dose: 0.125 mg Famotidine (Pepcid) 20 mg IVP Q12 [facility] Last Admin: 01/16/17 21:06 Dose: 20 mg Furosemide (Lasix) 20 mg PO DAILY [facility] Last Admin: 01/16/17 09:15 Dose: Not Given Heparin Sodium (Porcine) (Heparin) 5,000 units SC Q12 [facility] PRN Reason: Protocol Last Admin: 01/16/17 21:02 Dose: 5,000 units Hydromorphone HCl (Dilaudid) 1.5 mg IVP Q3H PRN PRN Reason: Pain, severe (8-10) Last Admin: 01/17/17 00:09 Dose: 1.5 mg Sodium Chloride (Sodium Chloride 0.9%) 1,000 mls @ 50 mls/hr IV .Q20H [facility] Last Admin: 01/16/17 21:03 Dose: 50 mls/hr Meropenem 1g/NS 100mL IVPB (Meropenem 1g/Ns 100ml Ivpb) 1 gm in 100 mls @ 100 mls/hr IVPB Q8 [facility] PRN Reason: Protocol Stop: 01/20/17 22:01 Last Admin: 01/16/17 22:27 Dose: 100 mls/hr Oxycodone/Acetaminophen (Percocet 10/325 Mg Tab) 1 tab PO Q6H PRN PRN Reason: Pain, moderate (4-7) Polyethylene Glycol (Miralax) 17 gm PO BID [facility] Last Admin: 01/16/17 17:43 Dose: Not Given Ursodiol (Actigall) 300 mg PO BID [facility] Last Admin: 01/16/17 17:43 Dose: 300 mg Vancomycin HCl (Vancocin 25 Mg/Ml (Oral Use)) 250 mg PO QID [facility] PRN Reason: Protocol Last Admin: 01/16/17 22:28 Dose: 250 mg - Labs Labs: 01/16/17 07:00 01/16/17 07:00 PT 14.8 Seconds (9.9-11.8) H 01/16/17 07:00 INR 1.37 (0.93-1.08) H 01/16/17 07:00 APTT 29.2 Seconds (23.7-30.8) 01/09/17 20:07 - Constitutional Appears: Non-toxic, No Acute Distress, Chronically Ill - Head Exam Head Exam: ATRAUMATIC, NORMOCEPHALIC - Eye Exam Eye Exam: EOMI, PERRL Pupil Exam: PERRL. absent: Miosis, Mydriatic - ENT Exam ENT Exam: Mucous Membranes Moist, Normal Oropharynx - Neck Exam Neck Exam: Full ROM, Normal Inspection - Respiratory Exam Respiratory Exam: Clear to Ausculation Bilateral. absent: Rales, Rhonchi, Wheezes - Cardiovascular Exam Cardiovascular Exam: RRR, +S1, +S2. absent: Gallop, Rubs - GI/Abdominal Exam GI & Abdominal Exam: Soft, Tenderness, Normal Bowel Sounds. 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 Laboratory findings showing conjugated hyperbilirubinemia and transaminitis. CT A/P and Ultrasound showed gallstones, sludge, and no biliary dilatations. MRCP showed cholelithiasis, choledocholelithiasis, and CBD size of 10mm. Plan: >sxheduled for EGD/EUS/ERCP Wednesday >daily LFTs, INR, Platelets, INR >Plts 46 (01/16), pending today- remains in 40s >if remains in 40s, transfuse one pool Wednesday morning -goal Platelets > 50, 2 pools of platelets held >FFP if INR >1.5 >Cdiff antigen positive >continue vancomycin PO QID >replace electrolytes as needed-(KCl 40mEq given Wednesday) >ensure medially optimized for procedure Wednesday >diet as tolerated, NPO after midnight on Wednesday >will follow clinical course <Naya Mercado - Last Filed: 01/17/17 12:33> Objective - Vital Signs/Intake and Output Vital Signs (last 24 hours): Temp Pulse Resp BP Pulse Ox 97.6 F 89 17 101/65 98 01/17/17 06:29 01/17/17 06:29 01/17/17 06:29 01/17/17 10:13 01/17/17 06:29 Intake and Output: 01/17/17 01/17/17 06:59 18:59 Intake Total 915 Output Total 400 Balance 515 - Medications Medications: Current Medications Digoxin (Lanoxin) 0.125 mg PO 1400 [facility] Last Admin: 01/16/17 14:40 Dose: 0.125 mg Famotidine (Pepcid) 20 mg IVP Q12 [facility] Last Admin: 01/17/17 10:11 Dose: 20 mg Furosemide (Lasix) 20 mg PO DAILY [facility] Last Admin: 01/17/17 10:13 Dose: Not Given Heparin Sodium (Porcine) (Heparin) 5,000 units SC Q12 [facility] PRN Reason: Protocol Last Admin: 01/17/17 10:11 Dose: 5,000 units Hydromorphone HCl (Dilaudid) 1.5 mg IVP Q3H PRN PRN Reason: Pain, severe (8-10) Last Admin: 01/17/17 10:41 Dose: 1.5 mg Sodium Chloride (Sodium Chloride 0.9%) 1,000 mls @ 50 mls/hr IV .Q20H [facility] Last Admin: 01/16/17 21:03 Dose: 50 mls/hr Meropenem 1g/NS 100mL IVPB (Meropenem 1g/Ns 100ml Ivpb) 1 gm in 100 mls @ 100 mls/hr IVPB Q8 [facility] PRN Reason: Protocol Stop: 01/20/17 22:01 Last Admin: 01/17/17 06:29 Dose: 100 mls/hr Potassium Chloride (Potassium Chloride 20 Meq/100 Ml) 20 meq in 100 mls @ 50 mls/hr IVPB Q2H [facility] Stop: 01/17/17 13:44 Last Admin: 01/17/17 12:00 Dose: 50 mls/hr Oxycodone/Acetaminophen (Percocet 10/325 Mg Tab) 1 tab PO Q6H PRN PRN Reason: Pain, moderate (4-7) Polyethylene Glycol (Miralax) 17 gm PO BID [facility] Last Admin: 01/17/17 10:13 Dose: Not Given Ursodiol (Actigall) 300 mg PO BID [facility] Last Admin: 01/17/17 10:10 Dose: 300 mg Vancomycin HCl (Vancocin 25 Mg/Ml (Oral Use)) 250 mg PO QID [facility] PRN Reason: Protocol Last Admin: 01/17/17 10:12 Dose: 250 mg - Labs Labs: 01/17/17 08:10 01/17/17 08:10 PT 14.7 Seconds (9.9-11.8) H 01/17/17 08:10 INR 1.36 (0.93-1.08) H 01/17/17 08:10 APTT 29.2 Seconds (23.7-30.8) 01/09/17 20:07 Attending/Attestation - Attestation I have personally seen and examined this patient.: Yes I have fully participated in the care of the patient.: Yes I have reviewed all pertinent clinical information, including history, physical exam and plan: Yes Notes (Text): Patient seen and examined with GI fellow. Agree with her note as documented above with the following additions/exceptions. This is a 51 year old male h/o Waldenstrom's marcroglobulinemia on chemotherapy , pancytopenia, atrial fibrillation on anticoagulation, diverticulitis s/p Sharpe's (03/2016) with ostomy who is being seen for abdominal pain, abnormal LFTs. He is cdiff positive, currently on PO vancomycin. MRCP shows cholelithiasis, choledocholithiasis with dilated CBD. Plan to continue supportive care. Continue antibiotic therapy. Keep NPO p [place] for EUS/ERCP tomorrow, platelets on hold. Check AM labs/coags. 01/17/17 12:31
[2017-01-17] MEDS: Meropenem 1g/NS 100mL IVPB 1 GM/100 ML PIGGYBACK IVPB SCH ×3 (06:29→21:49)
--- NOTE | 2017-01-17 08:21 | CP.PCM.PN ---
Subjective - Date & Time of Evaluation Date of Evaluation: 01/17/17 Time of Evaluation: 08:19 - Subjective Subjective: Surgery: Dr. Mas Pt seen and examined. ABD pain remains unchanged. Limited PO intake. Objective - Vital Signs/Intake and Output Vital Signs (last 24 hours): Temp Pulse Resp BP Pulse Ox 97.6 F 89 17 101/65 98 01/17/17 06:29 01/17/17 06:29 01/17/17 06:29 01/17/17 06:29 01/17/17 06:29 Intake and Output: 01/17/17 01/17/17 06:59 18:59 Intake Total 915 Output Total 400 Balance 515 - Medications Medications: Current Medications Digoxin (Lanoxin) 0.125 mg PO 1400 [facility] Last Admin: 01/16/17 14:40 Dose: 0.125 mg Famotidine (Pepcid) 20 mg IVP Q12 [facility] Last Admin: 01/16/17 21:06 Dose: 20 mg Furosemide (Lasix) 20 mg PO DAILY [facility] Last Admin: 01/16/17 09:15 Dose: Not Given Heparin Sodium (Porcine) (Heparin) 5,000 units SC Q12 [facility] PRN Reason: Protocol Last Admin: 01/16/17 21:02 Dose: 5,000 units Hydromorphone HCl (Dilaudid) 1.5 mg IVP Q3H PRN PRN Reason: Pain, severe (8-10) Last Admin: 01/17/17 06:31 Dose: 1.5 mg Sodium Chloride (Sodium Chloride 0.9%) 1,000 mls @ 50 mls/hr IV .Q20H [facility] Last Admin: 01/16/17 21:03 Dose: 50 mls/hr Meropenem 1g/NS 100mL IVPB (Meropenem 1g/Ns 100ml Iv[facility]) 1 gm in 100 mls @ 100 mls/hr IVPB Q8 [facility] PRN Reason: Protocol Stop: 01/20/17 22:01 Last Admin: 01/17/17 06:29 Dose: 100 mls/hr Oxycodone/Acetaminophen (Percocet 10/325 Mg Tab) 1 tab PO Q6H PRN PRN Reason: Pain, moderate (4-7) Polyethylene Glycol (Miralax) 17 gm PO BID [facility] Last Admin: 01/16/17 17:43 Dose: Not Given Ursodiol (Actigall) 300 mg PO BID [facility] Last Admin: 01/16/17 17:43 Dose: 300 mg Vancomycin HCl (Vancocin 25 Mg/Ml (Oral Use)) 250 mg PO QID [facility] PRN Reason: Protocol Last Admin: 01/16/17 22:28 Dose: 250 mg - Labs Labs: 01/16/17 07:00 01/16/17 07:00 PT 14.8 Seconds (9.9-11.8) H 01/16/17 07:00 INR 1.37 (0.93-1.08) H 01/16/17 07:00 APTT 29.2 Seconds (23.7-30.8) 01/09/17 20:07 - Constitutional Appears: Non-toxic, No Acute Distress - Head Exam Head Exam: ATRAUMATIC, NORMOCEPHALIC - Eye Exam Eye Exam: EOMI - ENT Exam ENT Exam: Mucous Membranes Moist - Neck Exam Neck Exam: Full ROM - Respiratory Exam Respiratory Exam: NORMAL BREATHING PATTERN. absent: Accessory Muscle Use, Respiratory Distress - GI/Abdominal Exam GI & Abdominal Exam: Soft. absent: Distended, Firm, Guarding, Rigid, Tenderness - Neurological Exam Neurological Exam: Alert, Awake, Oriented x3 Assessment and Plan - Assessment and Plan (Free Text) Assessment: 51M w. cholelithiasis/choledocholithiasis -for EUS/ERCP tomorrow -will plan for cholecystectomy accordingly -c/w current medical management -will dReneaw attending Zemaitis PGY2
[2017-01-17 08:49] LABS: ADD MANUAL DIFF? NO
[2017-01-17 09:05] LABS: EOS % 0.4 % (1.5-5.0); GRAN # 1.95 (1.4-6.5); GRAN % 84.1 % (50.0-68.0); HEMATOCRIT 27.2 % (42.0-52.0); INR 1.36 (0.93-1.08); LYMPH # 0.2 (1.2-3.4); LYMPH % 9.5 % (22.0-35.0); MEAN CORPUSCULAR HEMOGLOBIN 32.8 pg (25.0-35.0); MEAN CORPUSCULAR HGB CONC 31.3 g/dl (31.0-37.0); MONO # 0.1 (0.1-0.6); PLATELET COUNT 50 10^3/uL (120.0-450.0); RED CELL DISTRIBUTION WIDTH 14.9 % (11.5-14.5)
[2017-01-17 09:09] LABS: WHITE BLOOD COUNT 2.3 10^3/ul (4.5-11.0)
[2017-01-17 09:11] LABS: ALB/GLOB RATIO 0.7 (1.1-1.8); ALKALINE PHOSPHATASE 299 U/L (38-133); ALT/SGPT 47 U/L (7-56); AST/SGOT 26 U/L (15-59); BILIRUBIN,TOTAL 1.7 mg/dL (0.2-1.3); BLOOD UREA NITROGEN 2 mg/dL (7-21); CALCIUM 8.9 mg/dL (8.4-10.5); CARBON DIOXIDE 32 mmol/L (21-33); CHLORIDE 100 mmol/L (98-107); GFR AFRICAN-AMERICAN > 60; GLUCOSE,RANDOM 87 mg/dL (70-110); POTASSIUM 3.6 mmol/L (3.6-5.0); SODIUM 138 mmol/L (132-148); TOTAL PROTEIN 7.8 g/dL (5.8-8.3)
[2017-01-17] MEDS: Vancomycin 25 MG/ML PO SCH ×4 (10:12→21:52)
[2017-01-17] MEDS: POLYETHYLENE GLYCOL 3350 17 GM/Dose PACKET PO SCH ×2 (10:13→18:18)
[2017-01-17] MEDS: Digoxin 125 mcg (0.125 mg) Tab PO SCH (14:22)
--- NOTE | 2017-01-17 17:17 | PN ---
DATE: 01/17/2017 The patient is in bed in no acute distress. On exam the patient was seen this morning in room 371, b ed 2. He is complaining of being weak. OBJECTIVE: VITAL SIGNS: Temperature of 97, blood pressure is 101/60, respiratory rate of 16. HEENT: Unremarkable. NECK: Supple. LUNGS: Have decreased breath sounds. HEART: Normal S1, S2. ABDOMEN: Soft, nontender. LABORATORY DATA: Reveals a white count of 2.3, hemoglobin of 8, platelets of 50,000. The chemistrie s reveal the BUN of 2, creatinine of 0.5. Microbiology reveals stool cultures are negative and the s tool C. diff antigen is positive, the toxin is negative. Review of the orders reveals the patient to be on meropenem and p.o. vancomycin. Dr. Mas's note is reviewed and Dr. Mercado's note is reviewed. ASSESSMENT AND PLAN: He is a 51-year-old with pseudomembranous colitis, biliary tree and positive ma gnetic resonance cholangiopancreatography for dilated biliary ducts, on p.o. vancomycin and IV merope nem. The patient is for possible EUS and ERCP in the a.m. and possible cholecystectomy. Will contin ue the present course and will follow closely with you. Anatoliy Luna MD cc: 350 TT: 01/17/2017 17:16:35 Confirmation # [id number] Dictation # [id number] dn
--- NOTE | 2017-01-17 18:08 | PN ---
DATE: 01/17/2017 SUBJECTIVE: The patient has no complaints of any chest pain, no shortness of breath, no headaches. PHYSICAL EXAMINATION: VITAL SIGNS: Temperature is 97.6, pulse of 89, blood pressure is 101/65, respirations 17. GENERAL: The patient comfortable, in no acute distress. HEENT: Anicteric sclerae. Moist mucosa. NECK: No JVD or adenopathy. CARDIAC: S1/S2. No murmurs. No rubs. Regular. RESPIRATORY: Clear to auscultation bilaterally. No wheezes, rales, or rhonchi. Good air entry. ABDOMEN: Bowel sounds are positive, soft, nontender, and nondistended. EXTREMITIES: No edema. Has 1+ pulses. LABORATORIES: White count of 2.3, hemoglobin 8.5. Creatinine 0.5. ASSESSMENT: 1. Pancytopenia. 2. Waldenstrom's macroglobulinemia. 3. Atrial fibrillation. 4. Cardiomyopathy. 5. Leukopenia. PLAN: The patient is currently comfortable. He had pseudomembranous colitis. He is on vancomycin p .o. He is receiving IV meropenem. He had blood cultures that showed corynebacterium. Otherwise, bl ood cultures were negative. The patient has Clostridium difficile antigen that was positive, toxin w as negative. He is on Dilaudid for pain. He is receiving digoxin. He is on Lasix daily. He is on IV fluids at 50 an hour. He is on vancomycin. His white count is low. Waqas Dixon MD cc: [phone] TT: 01/17/2017 18:08:20 Confirmation # [id number] Dictation # [id number] en
[2017-01-18] MEDS: HYDROmorphone 2 mg/ml ISec IVP PRN ×6 (00:36→21:45)
[2017-01-18] MEDS: Meropenem 1g/NS 100mL IVPB 1 GM/100 ML PIGGYBACK IVPB SCH ×3 (05:35→21:37)
[2017-01-18 06:32] LABS: ADD MANUAL DIFF? NO
[2017-01-18 06:46] LABS: EOS % 0.3 % (1.5-5.0); GRAN # 2.53 (1.4-6.5); GRAN % 85.2 % (50.0-68.0); HEMATOCRIT 26.8 % (42.0-52.0); LYMPH # 0.3 (1.2-3.4); LYMPH % 9.1 % (22.0-35.0); MEAN CELL VOLUME 104.7 fL (80.0-105.0); MEAN CORPUSCULAR HEMOGLOBIN 32.8 pg (25.0-35.0); MEAN CORPUSCULAR HGB CONC 31.3 g/dl (31.0-37.0); MEAN PLATELET VOLUME 9.1 fl (7.0-11.0); MONO # 0.2 (0.1-0.6); MONO % 5.4 % (1.0-6.0); PLATELET COUNT 48 10^3/uL (120.0-450.0); RED CELL DISTRIBUTION WIDTH 14.8 % (11.5-14.5)
[2017-01-18 06:50] LABS: INR 1.37 (0.93-1.08)
[2017-01-18 07:07] LABS: ALB/GLOB RATIO 0.7 (1.1-1.8); ALKALINE PHOSPHATASE 261 U/L (38-133); ALT/SGPT 42 U/L (7-56); AST/SGOT 20 U/L (15-59); BILIRUBIN,TOTAL 1.3 mg/dL (0.2-1.3); BLOOD UREA NITROGEN 2 mg/dL (7-21); CALCIUM 8.5 mg/dL (8.4-10.5); CARBON DIOXIDE 34 mmol/L (21-33); CHLORIDE 100 mmol/L (95-110); GFR AFRICAN-AMERICAN > 60; GLUCOSE,RANDOM 97 mg/dL (70-110); POTASSIUM 3.6 mmol/L (3.6-5.0); SODIUM 140 mmol/L (132-148)
--- NOTE | 2017-01-18 08:09 | CP.PCM.PN ---
Subjective - Date & Time of Evaluation Date of Evaluation: 01/18/17 Time of Evaluation: 06:55 - Subjective Subjective: Gen Surg: Dr Mas Pt S&E. NAEO. Resting comfortably. Denies abdominal pain, n/v, f/c. Having BMs. Was tolerating CLD prior to NPO for procedure. PT for ERCP/EUS today. LFTs trending down. Objective - Vital Signs/Intake and Output Vital Signs (last 24 hours): Temp Pulse Resp BP Pulse Ox 97.6 F 89 17 101/65 98 01/17/17 06:29 01/17/17 06:29 01/17/17 06:29 01/17/17 10:13 01/17/17 06:29 Intake and Output: 01/18/17 01/18/17 06:59 18:59 Intake Total 1620 Output Total 300 Balance 1320 - Medications Medications: Current Medications Digoxin (Lanoxin) 0.125 mg PO 1400 [facility] Last Admin: 01/17/17 14:22 Dose: 0.125 mg Famotidine (Pepcid) 20 mg IVP Q12 [facility] Last Admin: 01/17/17 21:52 Dose: 20 mg Furosemide (Lasix) 20 mg PO DAILY [facility] Last Admin: 01/17/17 10:13 Dose: Not Given Heparin Sodium (Porcine) (Heparin) 5,000 units SC Q12 [facility] PRN Reason: Protocol Last Admin: 01/17/17 22:01 Dose: Not Given Hydromorphone HCl (Dilaudid) 1.5 mg IVP Q3H PRN PRN Reason: Pain, severe (8-10) Last Admin: 01/18/17 06:15 Dose: 1.5 mg Sodium Chloride (Sodium Chloride 0.9%) 1,000 mls @ 50 mls/hr IV .Q20H [facility] Last Admin: 01/16/17 21:03 Dose: 50 mls/hr Meropenem 1g/NS 100mL IVPB (Meropenem 1g/Ns 100ml Ivpb) 1 gm in 100 mls @ 100 mls/hr IVPB Q8 [facility] PRN Reason: Protocol Stop: 01/20/17 22:01 Last Admin: 01/18/17 05:35 Dose: 100 mls/hr Polyethylene Glycol (Miralax) 17 gm PO BID [facility] Last Admin: 04/30/17 18:18 Dose: Not Given Ursodiol (Actigall) 300 mg PO BID [facility] Last Admin: 01/17/17 18:21 Dose: 300 mg Vancomycin HCl (Vancocin 25 Mg/Ml (Oral Use)) 250 mg PO QID [facility] PRN Reason: Protocol Last Admin: 01/17/17 21:52 Dose: 250 mg - Labs Labs: 01/18/17 06:00 01/18/17 06:00 PT 14.8 Seconds (9.9-11.8) H 01/18/17 06:00 INR 1.37 (0.93-1.08) H 01/18/17 06:00 APTT 29.2 Seconds (23.7-30.8) 01/09/17 20:07 - Constitutional Appears: Non-toxic, No Acute Distress - Respiratory Exam Respiratory Exam: absent: Accessory Muscle Use, Respiratory Distress - GI/Abdominal Exam GI & Abdominal Exam: Soft. absent: Distended, Firm, Guarding, Tenderness - Neurological Exam Neurological Exam: Alert, Awake, Oriented x3 Assessment and Plan - Assessment and Plan (Free Text) Assessment: 51M w/ abdominal pain likely 2/2 cholecystitis; resolving Plan: Pt for ERCP/EUS today will f/u results pt poor surgical candidate given coagulopathy, avoiding an operation would be preferable. will continue to follow closely d/w Dr Chace Olmstead, PGY2
[2017-01-18] MEDS: POLYETHYLENE GLYCOL 3350 17 GM/Dose PACKET PO SCH ×2 (09:09→18:06)
[2017-01-18] MEDS ORDERED: Indomethacin 50 MG Suppository PR ONE ×2 (10:34→12:50)
[2017-01-18] MEDS ORDERED: Iohexol 240 (50 ml) ONE (10:36)
[2017-01-18] MEDS ORDERED: Propofol 10 mg/ml Inj (20 ML) ONE (11:49)
[2017-01-18] MEDS ORDERED: Succinylcholine 200 mg/10 ml Inj IV ONE (11:49)
[2017-01-18] MEDS ORDERED: Midazolam 2 MG/2 ML VIAL ONE (11:49)
[2017-01-18] MEDS ORDERED: Etomidate 20 mg/10ml Inj IV ONE (11:49)
[2017-01-18] MEDS ORDERED: Phenylephrine 10 mg/ml Inj ONE (11:51)
[2017-01-18] MEDS ORDERED: ePHEDrine 50 mg/ml Inj ONE (11:51)
[2017-01-18] MEDS ORDERED: Esmolol 100 mg/10ml Inj IV ONE (12:24)
[2017-01-18] MEDS ORDERED: Sevoflurane - Inhalation Anesthetic Liq (250 ml) ONE (12:26)
--- NOTE | 2017-01-18 12:27 | PN ---
DATE: 01/18/2017 SUBJECTIVE: The patient is lying on a bed in the recovery room, awaiting his ERCP. He is complainin g of some mid abdominal pain. He denies any nausea, vomiting. PHYSICAL EXAMINATION: VITAL SIGNS: Reveal temperature of 97.5, blood pressure 113/70, heart rate 89. ABDOMEN: Soft, mild epigastric tenderness. No rebound, no guarding. There is a left upper quadrant colostomy. LABORATORY DATA: Reveal normal AST, ALT. Alkaline phosphatase 261, total bilirubin 1.3. CBC reveal s white blood cell count 3, hemoglobin 8.4, platelet count . Coags reveal PT 14.8, INR 1.37. MRCP from 01/15 reveals filling defects and a common bile duct stone consistent with stones. IMPRESSION: A 51-year-old male with Waldenstrom's macroglobulinemia with pancytopenia, recently diag nosed with Clostridium difficile, coronary artery disease, atrial fibrillation with common bile duct stones. RECOMMENDATIONS: 1. The patient has been transfused platelets this morning. He will undergo an ERCP with possible st one extraction and/or stent placement. 2. Continue p.o. vancomycin. Vinny House MD cc: [phone] TT: 01/18/2017 12:26:24 Confirmation # [id number] Dictation # [id number] en
--- NOTE | 2017-01-18 12:58 | PN ---
DATE: 01/18/2017 The patient is a 51-year-old, seen and examined, lying in bed. He was seen in recovery, getting read y to go for ERCP. Denies any nausea or vomiting. No fever or chills. PHYSICAL EXAMINATION: VITAL SIGNS: He is afebrile, pulse 89, respirations 14, blood pressure 113/70. LUNGS: Bilateral fair airflow, no rhonchi or crackle. HEART: S1, S2 audible. ABDOMEN: Soft, obese, nontender, no rebound, no guarding. NEUROLOGIC: The patient is awake and alert, communicative. LABORATORY EXAMINATION: WBCs 3.0, hemoglobin 8.4, hematocrit 26.8, platelets of 48. Chemistry: Sod ium 140, potassium 3.6, chloride 100, CO2 34, BUN 2, creatinine 0.5, blood sugar of . LFTs are within normal limits. ASSESSMENT: 1. Clostridium difficile colitis. 2. Common bile duct obstruction found on magnetic resonance cholangiopancreatography, going for endo scopic retrograde cholangiopancreatogram today. 3. Pancytopenia. 4. Myelodysplastic syndrome. 5. Cardiomyopathy. 6. Chronic atrial fibrillation. PLAN: Currently, patient is off of Coumadin. He was given blood transfusion. One is ready to be gi autumn during the procedure and we will continue him on analgesic as needed. He is on heparin, digoxin, Lasix and laxative and he is on p.o. vancomycin for Clostridium difficile. We will continue patient on current medication and follow up CBC and electrolytes in a.m. Pepito Gavin MD cc: [phone] TT: 01/18/2017 12:57:16 Confirmation # [id number] Dictation # [id number] en
[2017-01-18] MEDS ORDERED: Lactated Ringer's 1,000 ML IV SCH (13:49)
[2017-01-18] MEDS ORDERED: HYDROmorphone 0.5 mg/0.5 ml ISec IVP PRN (13:49)
[2017-01-18] MEDS: Vancomycin 25 MG/ML PO SCH ×3 (16:21→21:35)
[2017-01-18] MEDS: Digoxin 125 mcg (0.125 mg) Tab PO SCH (18:05)
--- NOTE | 2017-01-18 19:00 | PN ---
DATE: 01/18/2017 The patient is in bed in no acute distress, nontoxic. PHYSICAL EXAMINATION: VITAL SIGNS: Temperature is 98, blood pressure is 120/70, respiratory rate of 18, heart rate of 101. HEENT: Unremarkable. NECK: Supple. LUNGS: Have decreased breath sounds. HEART: Normal S1, S2. ABDOMEN: Soft, nontender. LABORATORY DATA: Reveals a white count of 3, hemoglobin of 8 and platelets of 48, 85% granulocytosis . BUN of 2, creatinine of 0.5, alkaline phosphatase is 261. Urinalysis is noted. Microbiology reve als C. diff antigen is positive. C. diff toxin is negative. Stool cultures are negative. ASSESSMENT AND PLAN: This is a 51-year-old with pseudomembranous colitis, biliary tree, with a posit harshad magnetic resonance cholangiopancreatography, dilated biliary ducts on p.o. vancomycin, IV meropen em. The patient for further endoscopy, EUS and endoscopic retrograde cholangiopancreatography today in this patient with history of low ejection fraction of 30% and aggressive Alcala Waldenstrom's mac roglobulinemia and severe heart failure. Overall, prognosis is poor and pancytopenia. Anatoliy Luna MD cc: 350 TT: 01/18/2017 19:00:25 Confirmation # [id number] Dictation # [id number] [email or web address]
[2017-01-18] MEDS: Sodium Chloride 0.9% 1,000 ML IV SCH (21:38)
[2017-01-19] MEDS: HYDROmorphone 2 mg/ml ISec IVP PRN ×3 (01:08→07:00)
[2017-01-19] MEDS: Meropenem 1g/NS 100mL IVPB 1 GM/100 ML PIGGYBACK IVPB SCH ×3 (05:43→21:00)
[2017-01-19 07:35] LABS: ADD MANUAL DIFF? NO
[2017-01-19 07:40] LABS: GRAN # 3.82 (1.4-6.5); GRAN % 89.9 % (50.0-68.0); HEMATOCRIT 26.1 % (42.0-52.0); LYMPH # 0.2 (1.2-3.4); LYMPH % 5.6 % (22.0-35.0); MEAN CELL VOLUME 104.4 fL (80.0-105.0); MEAN CORPUSCULAR HEMOGLOBIN 32.8 pg (25.0-35.0); MEAN CORPUSCULAR HGB CONC 31.4 g/dl (31.0-37.0); MEAN PLATELET VOLUME 9.5 fl (7.0-11.0); MONO # 0.2 (0.1-0.6); MONO % 4.5 % (1.0-6.0); PLATELET COUNT 55 10^3/uL (120.0-450.0); RED CELL DISTRIBUTION WIDTH 14.7 % (11.5-14.5); WHITE BLOOD COUNT 4.3 10^3/ul (4.5-11.0)
[2017-01-19 07:56] LABS: ALB/GLOB RATIO 0.7 (1.1-1.8); ALKALINE PHOSPHATASE 261 U/L (38-133); ALT/SGPT 40 U/L (7-56); AST/SGOT 23 U/L (15-59); BILIRUBIN,TOTAL 1.6 mg/dL (0.2-1.3); BLOOD UREA NITROGEN 4 mg/dL (7-21); CALCIUM 8.4 mg/dL (8.4-10.5); CARBON DIOXIDE 33 mmol/L (21-33); CHLORIDE 97 mmol/L (95-110); GFR AFRICAN-AMERICAN > 60; GLUCOSE,RANDOM 91 mg/dL (70-110); POTASSIUM 3.4 mmol/L (3.6-5.0); SODIUM 138 mmol/L (132-148); TOTAL PROTEIN 6.7 g/dL (5.8-8.3)
--- NOTE | 2017-01-19 08:25 | CP.PCM.PN ---
Subjective - Date & Time of Evaluation Date of Evaluation: 01/19/17 Time of Evaluation: 06:45 - Subjective Subjective: General Surgery Dr. Mas Pt S&E @bedside. ERCP yesterday; pt tolerated the procedure well w/ no complications. NAEO. denies abd pain, N/V, F/C. (+) Colostomy output. tolerating diet. Objective - Vital Signs/Intake and Output Vital Signs (last 24 hours): Temp Pulse Resp BP Pulse Ox 98 F 96 H 97 H 120/79 99 01/18/17 16:00 01/18/17 16:00 01/18/17 16:00 01/18/17 16:00 01/18/17 14:23 Intake and Output: 01/19/17 01/19/17 06:59 18:59 Intake Total 0 Output Total 525 Balance -525 - Medications Medications: Current Medications Digoxin (Lanoxin) 0.125 mg PO 1400 [facility] Last Admin: 01/18/17 18:05 Dose: Not Given Famotidine (Pepcid) 20 mg IVP Q12 [facility] Last Admin: 01/18/17 21:37 Dose: 20 mg Furosemide (Lasix) 20 mg PO DAILY [facility] Last Admin: 01/18/17 09:09 Dose: Not Given Heparin Sodium (Porcine) (Heparin) 5,000 units SC Q12 [facility] PRN Reason: Protocol Last Admin: 01/17/17 22:01 Dose: Not Given Hydromorphone HCl (Dilaudid) 1.5 mg IVP Q3H PRN PRN Reason: Pain, severe (8-10) Last Admin: 01/19/17 07:00 Dose: 1.5 mg Hydromorphone HCl (Dilaudid) 0.5 mg IVP Q15M PRN PRN Reason: Pain, moderate (4-7) Sodium Chloride (Sodium Chloride 0.9%) 1,000 mls @ 50 mls/hr IV .Q20H [facility] Last Admin: 01/18/17 21:38 Dose: 50 mls/hr Meropenem 1g/NS 100mL IVPB (Meropenem 1g/Ns 100ml Ivpb) 1 gm in 100 mls @ 100 mls/hr IVPB Q8 [facility] PRN Reason: Protocol Stop: 01/20/17 22:01 Last Admin: 01/19/17 05:43 Dose: 100 mls/hr Ondansetron HCl (Zofran Inj) 4 mg IVP Q6H PRN PRN Reason: Nausea/Vomiting Last Admin: 01/18/17 16:29 Dose: 4 mg Polyethylene Glycol (Miralax) 17 gm PO BID [facility] Last Admin: 01/18/17 18:06 Dose: Not Given Ursodiol (Actigall) 300 mg PO BID [facility] Last Admin: 01/18/17 18:05 Dose: Not Given Vancomycin HCl (Vancocin 25 Mg/Ml (Oral Use)) 250 mg PO QID [facility] PRN Reason: Protocol Last Admin: 01/18/17 21:35 Dose: 250 mg - Labs Labs: 01/19/17 07:00 01/19/17 07:00 PT 14.8 Seconds (9.9-11.8) H 01/18/17 06:00 INR 1.37 (0.93-1.08) H 01/18/17 06:00 APTT 29.2 Seconds (23.7-30.8) 01/09/17 20:07 - Constitutional Appears: Non-toxic, No Acute Distress - Head Exam Head Exam: NORMAL INSPECTION - Eye Exam Eye Exam: Normal appearance. absent: Scleral icterus - ENT Exam ENT Exam: Mucous Membranes Moist - Respiratory Exam Respiratory Exam: NORMAL BREATHING PATTERN. absent: Accessory Muscle Use, Respiratory Distress - GI/Abdominal Exam GI & Abdominal Exam: Soft. absent: Distended, Tenderness Additional comments: colostomy in place. stool present in bad. - Extremities Exam Extremities Exam: Normal Inspection - Neurological Exam Neurological Exam: Alert, Awake, Oriented x3 - Psychiatric Exam Psychiatric exam: Normal Affect, Normal Mood - Skin Skin Exam: Dry, Intact, Normal Color, Warm Assessment and Plan - Assessment and Plan (Free Text) Assessment: 51 y/o M w/ abd pain likely 2/2 cholecystitis 2/2 choledocolithiasis - resolved - advance diet per GI - no further surgical intervention at this time - recommend follow up at a [facility] for elective cholecystectomy - will follow peripherally. Pt seen and discussed w/ Dr. Chace Yates DO PGY1
--- NOTE | 2017-01-19 09:53 | CP.PCM.PN ---
<Farrukh Burdick - Last Filed: 01/19/17 12:09> Subjective - Date & Time of Evaluation Date of Evaluation: 01/19/17 Time of Evaluation: 09:00 - Subjective Subjective: PGY4 GI Fellow Progress Note Patient seen and examined bedside this morning. The patient admits to some mild upper abdominal soreness. Denies any severe pain or issues tolerating liquid diet. Still passing loose stool to ostomy with increased frequency. Denies any fever, chills, nausea, vomiting. Eager to advance diet. 12 system ROS performed and negative except where stated. Objective - Vital Signs/Intake and Output Vital Signs (last 24 hours): Temp Pulse Resp BP Pulse Ox 98 F 96 H 97 H 120/79 99 01/18/17 16:00 01/18/17 16:00 01/18/17 16:00 01/18/17 16:00 01/18/17 14:23 Intake and Output: 01/19/17 01/19/17 06:59 18:59 Intake Total 0 Output Total 525 Balance -525 - Medications Medications: Current Medications Digoxin (Lanoxin) 0.125 mg PO 1400 [facility] Last Admin: 01/18/17 18:05 Dose: Not Given Famotidine (Pepcid) 20 mg IVP Q12 [facility] Last Admin: 01/18/17 21:37 Dose: 20 mg Furosemide (Lasix) 20 mg PO DAILY [facility] Last Admin: 01/18/17 09:09 Dose: Not Given Heparin Sodium (Porcine) (Heparin) 5,000 units SC Q12 [facility] PRN Reason: Protocol Last Admin: 01/17/17 22:01 Dose: Not Given Hydromorphone HCl (Dilaudid) 1.5 mg IVP Q3H PRN PRN Reason: Pain, severe (8-10) Last Admin: 01/19/17 07:00 Dose: 1.5 mg Hydromorphone HCl (Dilaudid) 0.5 mg IVP Q15M PRN PRN Reason: Pain, moderate (4-7) Sodium Chloride (Sodium Chloride 0.9%) 1,000 mls @ 50 mls/hr IV .Q20H [facility] Last Admin: 01/18/17 21:38 Dose: 50 mls/hr Meropenem 1g/NS 100mL IVPB (Meropenem 1g/Ns 100ml Ivpb) 1 gm in 100 mls @ 100 mls/hr IVPB Q8 [facility] PRN Reason: Protocol Stop: 01/20/17 22:01 Last Admin: 01/19/17 05:43 Dose: 100 mls/hr Ondansetron HCl (Zofran Inj) 4 mg IVP Q6H PRN PRN Reason: Nausea/Vomiting Last Admin: 01/18/17 16:29 Dose: 4 mg Polyethylene Glycol (Miralax) 17 gm PO BID [facility] Last Admin: 01/18/17 18:06 Dose: Not Given Ursodiol (Actigall) 300 mg PO BID [facility] Last Admin: 01/18/17 18:05 Dose: Not Given Vancomycin HCl (Vancocin 25 Mg/Ml (Oral Use)) 250 mg PO QID [facility] PRN Reason: Protocol Last Admin: 01/18/17 21:35 Dose: 250 mg - Labs Labs: 01/19/17 07:00 01/19/17 07:00 PT 14.8 Seconds (9.9-11.8) H 01/18/17 06:00 INR 1.37 (0.93-1.08) H 01/18/17 06:00 APTT 29.2 Seconds (23.7-30.8) 01/09/17 20:07 - Constitutional Appears: No Acute Distress, Chronically Ill - Eye Exam Eye Exam: EOMI, PERRL - ENT Exam ENT Exam: Mucous Membranes Moist - Respiratory Exam Respiratory Exam: Clear to Ausculation Bilateral. absent: Rales, Rhonchi, Wheezes - Cardiovascular Exam Cardiovascular Exam: Tachycardia, Irregular Rhythm, +S1, +S2 - GI/Abdominal Exam GI & Abdominal Exam: Soft, Tenderness (minimal in the upper qudrants), Normal Bowel Sounds. absent: Distended, Firm, Guarding, Rigid, Organomegaly - Extremities Exam Additional comments: B/L LE edema - Neurological Exam Neurological Exam: Alert, Awake, Oriented x3 - Psychiatric Exam Psychiatric exam: Normal Affect, Normal Mood - Skin Skin Exam: Dry, Warm Assessment and Plan - Assessment and Plan (Free Text) Assessment: Patient is a 51yo male with PMHx significant for Waldenstrom's marcroglobulinemia, pancytopenia, Afib, Diverticulitis s/p colostomy who presented with abdominal pain, elevated LFTs and gallstones. -Choledocolithiasis s/p ERCP with sphincterotomy and balloon extraction of choledocolith -Cholelithiasis -Abnormal LFTs -C diff colitis -Waldenstrom's macroglobulinemia, currently on chemotherapy -Atrial fibrillation Plan: -S/P ERCP with sphincterotomy and balloon extraction of choledocolithiasis POD#1 -T bili slightly uptrending today; continue to monitor; currently asymptomatic, remainder of LFTs unchanged -Advance to soft, altered GI/diarrhea management/low microbial diet; continue to advance as tolerated -Case discussed with surgical service who are opting to treat conservatively; recommending follow up at [facility] if needed given multiple co- morbid conditions -Will turn case back over to patient's primary GI, Dr House -Thank you for allowing us to participate in the care of your patient <Jose Burnham - Last Filed: 01/19/17 12:19> Objective - Vital Signs/Intake and Output Vital Signs (last 24 hours): Temp Pulse Resp BP Pulse Ox 98.0 F 83 20 85/60 L 97 01/19/17 06:00 01/19/17 06:00 01/19/17 06:00 01/19/17 10:02 01/19/17 06:00 Intake and Output: 01/19/17 01/19/17 06:59 18:59 Intake Total 0 Output Total 525 Balance -525 - Medications Medications: Current Medications Digoxin (Lanoxin) 0.125 mg PO 1400 [facility] Last Admin: 01/18/17 18:05 Dose: Not Given Famotidine (Pepcid) 20 mg IVP Q12 [facility] Last Admin: 01/19/17 11:46 Dose: 20 mg Furosemide (Lasix) 20 mg PO DAILY [facility] Last Admin: 01/19/17 10:02 Dose: Not Given Heparin Sodium (Porcine) (Heparin) 5,000 units SC Q12 [facility] PRN Reason: Protocol Last Admin: 01/17/17 22:01 Dose: Not Given Hydromorphone HCl (Dilaudid) 2 mg PO Q4H PRN PRN Reason: Pain, Mild (1-3) Sodium Chloride (Sodium Chloride 0.9%) 1,000 mls @ 50 mls/hr IV .Q20H [facility] Last Admin: 01/18/17 21:38 Dose: 50 mls/hr Meropenem 1g/NS 100mL IVPB (Meropenem 1g/Ns 100ml Ivpb) 1 gm in 100 mls @ 100 mls/hr IVPB Q8 [facility] PRN Reason: Protocol Stop: 01/20/17 22:01 Last Admin: 01/19/17 05:43 Dose: 100 mls/hr Lactobacillus Acidophilus (Bacid Acidophilus) 1 cap PO BID [facility] Last Admin: 01/19/17 11:46 Dose: 1 cap Ondansetron HCl (Zofran Inj) 4 mg IVP Q6H PRN PRN Reason: Nausea/Vomiting Last Admin: 01/18/17 16:29 Dose: 4 mg Ursodiol (Actigall) 300 mg PO BID [facility] Last Admin: 01/19/17 09:58 Dose: 300 mg Vancomycin HCl (Vancocin 25 Mg/Ml (Oral Use)) 250 mg PO QID [facility] PRN Reason: Protocol Last Admin: 01/19/17 10:01 Dose: 250 mg - Labs Labs: 01/19/17 07:00 01/19/17 07:00 PT 14.8 Seconds (9.9-11.8) H 01/18/17 06:00 INR 1.37 (0.93-1.08) H 01/18/17 06:00 APTT 29.2 Seconds (23.7-30.8) 01/09/17 20:07 Attending/Attestation - Attestation I have personally seen and examined this patient.: Yes I have fully participated in the care of the patient.: Yes I have reviewed all pertinent clinical information, including history, physical exam and plan: Yes Notes (Text): 01/19/17 12:15 51 year old male h/o Waldenstrom's marcroglobulinemia on chemotherapy, pancytopenia, atrial fibrillation on anticoagulation, diverticulitis s/p Sharpe 's (03/2016) with ostomy with cholelithiasis and choledocholithiasis. 1. Choledocholithiasis 2. Cholelithiasis Plan: -s/p ERCP with sphincterotomy/stone extraction (see report) -lfts normalizing -no signs of bleeding/pancreatitis -advance diet as tolerated -consider oral dissolution therapy for cholelithiasis with ursodiol considering surgical risk -discussed potential complications of gallstones considering he still has extensive sludge in the gallbladder -he will consider surgery in the future, but currently it is deferred -will sign off at this time
[2017-01-19] MEDS: POLYETHYLENE GLYCOL 3350 17 GM/Dose PACKET PO SCH (09:55)
--- NOTE | 2017-01-19 09:55 | PN ---
DATE: 01/19/2017 The patient is seen on the floor status post ERCP and sphincterotomy and removal of the stone. The s tone was very large. The patient has some mild abdominal discomfort now. My feeling would be to aidee id an operation on this sick patient with a platelet count of 55,000 and a white count barely up to 4 . We will watch him expectantly, give him some rest, and consider an elective cholecystectomy. Td Mas MD cc: [phone] TT: 01/19/2017 09:54:47 Confirmation # [id number] Dictation # [id number] jn
[2017-01-19] MEDS: Vancomycin 25 MG/ML PO SCH ×4 (10:01→21:02)
[2017-01-19 10:42] VITALS: RESP 20
[2017-01-19] MEDS ORDERED: Potassium Chloride 20 mEq ER Tab PO ONE (11:32)
[2017-01-19] MEDS: Lactobacillus Acidophilus 500 MU Cap PO SCH ×2 (11:46→17:46)
--- NOTE | 2017-01-19 12:25 | PN ---
DATE: 01/19/2017 SUBJECTIVE: The patient is lying in bed, comfortable. He admits to mild "achiness" in his abdomen. He underwent an ERCP yesterday with sphincterotomy and balloon stone extraction. He denies any over t GI bleeding, nausea or vomiting. PHYSICAL EXAMINATION: VITAL SIGNS: Reveal temperature of 98, blood pressure 85/60, heart rate of 83. ABDOMEN: Soft, nontender. Left upper quadrant colostomy. LABORATORY DATA: Reveal white blood cell count 4.3, hemoglobin 8.2, platelet count of 55,000. Total bilirubin is 1.6, AST 23, ALT 40, alkaline phosphatase is down to 261. IMPRESSION: A 51-year-old male with multiple comorbidities including Waldenstrom's macroglobulinemia with pancytopenia, history of coronary artery disease, atrial fibrillation, admitted to the hospital with abdominal pain, elevated liver enzymes and found to have common bile duct stones. The patient also has chronic back pain and recently has had diarrhea with Clostridium difficile antigen positive. He underwent an endoscopic retrograde cholangiopancreatogram yesterday with sphincterotomy and ball oon stone extraction by Dr. Burnham. Surgery has recommended that cholecystectomy be deferred for the time being given his numerous other medical problems including low platelet count. The patient is ag reeable to this. He continues to have some diarrhea. RECOMMENDATIONS: 1. I will stop the patient's MiraLax. 2. I will start the patient on lactobacillus probiotics. 3. Continue p.o. vancomycin. 4. Plan on elective cholecystectomy. Vinny House MD cc: [phone] TT: 01/19/2017 12:25:10 Confirmation # [id number] Dictation # [id number] en
[2017-01-19] MEDS ORDERED: Sodium Chloride 0.45% 1,000 ML IV SCH (12:30)
--- NOTE | 2017-01-19 12:49 | PN ---
DATE: 01/19/2017 SUBJECTIVE: The patient is a 51-year-old, seen and examined, lying in bed, complained of back pain, underwent ERCP yesterday, had a sphincterotomy done, complaining of nausea, still on clear liquid t. PHYSICAL EXAMINATION: VITAL SIGNS: The patient is afebrile, pulse 83, respirations 20, blood pressure 85/60. LUNGS: Bilateral fair airflow, no rhonchi or crackle. HEART: S1, S2 audible. ABDOMEN: Soft, obese, nontender. His colostomy bag has pasty stool. EXTREMITIES: Bilateral legs +1 edema. LABORATORY EXAMINATION: WBC is 4.3, hemoglobin 8.2, hematocrit 26, platelet of 55. Chemistry: Sodi um 138, potassium 3.4, chloride 97, CO2 33, BUN 4, creatinine 0.5, blood sugar of 91, magnesium is 1. 4. Stool for C. diff done on 01/14 was positive. ASSESSMENT: 1. Clostridium difficile colitis. 2. Status post endoscopic retrograde cholangiopancreatography and sphincterotomy. 3. Pancytopenia. 4. Waldenstrom macroglobulinemia. 5. Chronic back pain. PLAN: Discussed with Dr. Burnham. We will continue patient on ursodiol and Bacid. I will switch his painkiller to p.o. and we will continue him on Neupogen another dose and then we will discontinue cata t. Continue him on digoxin. We will discontinue Lasix, continue him on meropenem. Continue him on current IV fluid. He is on p.o. vancomycin. We will give 1 bolus of 250 mL of normal saline at 100 mL for 3 hours and keep his blood pressure above 90 and if the patient remains stable, discharge plan for a.m. Pepito Gavin MD cc: [phone] TT: 01/19/2017 12:48:09 Confirmation # [id number] Dictation # [id number] tn
[2017-01-19] MEDS: Digoxin 125 mcg (0.125 mg) Tab PO SCH (14:04)
[2017-01-19] MEDS ORDERED: Sodium Chloride 0.9% 1,000 ML IV SCH (17:15)
[2017-01-19] MEDS: HYDROmorphone 1 mg/ml ISec IVP PRN ×2 (17:54→20:58)
--- NOTE | 2017-01-19 18:45 | CP.PCM.PN ---
Subjective - Date & Time of Evaluation Date of Evaluation: 01/19/17 Time of Evaluation: 11:15 - Subjective Subjective: Comfortable in bed, not in distress, just underwent ERCP, no fevers overnight, tolerated the procedure. Objective - Vital Signs/Intake and Output Vital Signs (last 24 hours): Temp Pulse Resp BP Pulse Ox 98 F 96 H 97 H 120/79 99 01/18/17 16:00 01/18/17 16:00 01/18/17 16:00 01/18/17 16:00 01/18/17 14:23 Intake and Output: 01/19/17 01/19/17 06:59 18:59 Intake Total 0 Output Total 525 Balance -525 - Medications Medications: Current Medications Digoxin (Lanoxin) 0.125 mg PO 1400 [facility] Last Admin: 01/18/17 18:05 Dose: Not Given Famotidine (Pepcid) 20 mg IVP Q12 [facility] Last Admin: 01/18/17 21:37 Dose: 20 mg Furosemide (Lasix) 20 mg PO DAILY [facility] Last Admin: 01/18/17 09:09 Dose: Not Given Heparin Sodium (Porcine) (Heparin) 5,000 units SC Q12 [facility] PRN Reason: Protocol Last Admin: 01/17/17 22:01 Dose: Not Given Hydromorphone HCl (Dilaudid) 1.5 mg IVP Q3H PRN PRN Reason: Pain, severe (8-10) Last Admin: 01/19/17 07:00 Dose: 1.5 mg Hydromorphone HCl (Dilaudid) 0.5 mg IVP Q15M PRN PRN Reason: Pain, moderate (4-7) Sodium Chloride (Sodium Chloride 0.9%) 1,000 mls @ 50 mls/hr IV .Q20H [facility] Last Admin: 01/18/17 21:38 Dose: 50 mls/hr Meropenem 1g/NS 100mL IVPB (Meropenem 1g/Ns 100ml Ivpb) 1 gm in 100 mls @ 100 mls/hr IVPB Q8 [facility] PRN Reason: Protocol Stop: 01/20/17 22:01 Last Admin: 01/19/17 05:43 Dose: 100 mls/hr Ondansetron HCl (Zofran Inj) 4 mg IVP Q6H PRN PRN Reason: Nausea/Vomiting Last Admin: 01/18/17 16:29 Dose: 4 mg Polyethylene Glycol (Miralax) 17 gm PO BID [facility] Last Admin: 01/18/17 18:06 Dose: Not Given Ursodiol (Actigall) 300 mg PO BID [facility] Last Admin: 01/18/17 18:05 Dose: Not Given Vancomycin HCl (Vancocin 25 Mg/Ml (Oral Use)) 250 mg PO QID [facility] PRN Reason: Protocol Last Admin: 01/18/17 21:35 Dose: 250 mg - Labs Labs: 01/19/17 07:00 01/19/17 07:00 PT 14.8 Seconds (9.9-11.8) H 01/18/17 06:00 INR 1.37 (0.93-1.08) H 01/18/17 06:00 APTT 29.2 Seconds (23.7-30.8) 01/09/17 20:07 - Constitutional Appears: Non-toxic, No Acute Distress - Head Exam Head Exam: NORMAL INSPECTION - ENT Exam ENT Exam: Mucous Membranes Moist - Neck Exam Neck Exam: absent: Lymphadenopathy, Meningismus - Respiratory Exam Respiratory Exam: Decreased Breath Sounds - Cardiovascular Exam Cardiovascular Exam: +S1, +S2 - GI/Abdominal Exam GI & Abdominal Exam: Soft. absent: Tenderness Assessment and Plan - Assessment and Plan (Free Text) Plan: assessment Dilated CBD, rule out choledocholethiasis S/P ERCP consider C. diff associated diarrhea, slowly improving Gram positive ross in one bottle, R/O contamination Leukopenia without fever, probably related to his Waldenstrom's macroglobulinemia history of intra-abdominal infection/colitis history of Acute sigmoid diverticulitis with abscess formation S/P resection and colostomy placement Waldenstrom's Macroglobinemia currently on chemotherapy atrial fibrillation on anticoagulation Plan continue Merrem and PO Vancomycin Follow up results of the ERCP Will follow clinically
[2017-01-19] MEDS ORDERED: Magnesium Sulfate 2 GM in Sodium Chloride 0.9% 100 ML IVPB ONE (19:06)
[2017-01-20] MEDS: HYDROmorphone 1 mg/ml ISec IVP PRN ×4 (02:23→12:55)
[2017-01-20] MEDS: Meropenem 1g/NS 100mL IVPB 1 GM/100 ML PIGGYBACK IVPB SCH (05:00)
[2017-01-20 07:14] LABS: BASO # 0.01 K/mm3 (0.0-2.0); BASO % 0.2 % (0.0-3.0); EOS % 0.2 % (1.5-5.0); GRAN # 4.29 (1.4-6.5); GRAN % 89.1 % (50.0-68.0); HEMATOCRIT 25.8 % (42.0-52.0); LYMPH # 0.3 (1.2-3.4); LYMPH % 6.8 % (22.0-35.0); MEAN CELL VOLUME 105.7 fL (80.0-105.0); MEAN CORPUSCULAR HEMOGLOBIN 32.8 pg (25.0-35.0); MEAN PLATELET VOLUME 9.7 fl (7.0-11.0); MONO # 0.2 (0.1-0.6); MONO % 3.7 % (1.0-6.0); PLATELET COUNT 52 10^3/uL (120.0-450.0); RED CELL DISTRIBUTION WIDTH 14.9 % (11.5-14.5); WHITE BLOOD COUNT 4.8 10^3/ul (4.5-11.0)
[2017-01-20 07:43] LABS: ADD MANUAL DIFF? NO
--- NOTE | 2017-01-20 08:56 | PN ---
DATE: 01/20/2017 SUBJECTIVE: The patient is lying in bed. He is comfortable. He complains of mild intermittent abdo kvng pain and back pain. He denies any nausea and vomiting. PHYSICAL EXAMINATION: VITAL SIGNS: Reveal temperature of 98, blood pressure 97/66, heart rate of 86. ABDOMEN: Soft, nontender. Left upper quadrant colostomy. No new laboratory data is present. IMPRESSION: A 51-year-old male with Waldenstrom's macroglobulinemia with pancytopenia, coronary jem ry disease, atrial fibrillation, status post ERCP with sphincterotomy and removal of common bile duct stones, cholelithiasis. RECOMMENDATIONS: 1. Surgery has deferred on cholecystectomy given multiple comorbidities and high surgical risk for natasha funes. 2. Continue Actigall. 3. The patient can be discharged home from a GI standpoint. Vinny House MD cc: [phone] TT: 01/20/2017 08:55:47 Confirmation # [id number] Dictation # [id number] tn
[2017-01-20] MEDS: Lactobacillus Acidophilus 500 MU Cap PO SCH (09:34)
[2017-01-20] MEDS: Vancomycin 25 MG/ML PO SCH ×2 (09:35→14:00)
[2017-01-20 10:10] VITALS: BP 92/62; PULSE 90; TEMP 98.5; O2SAT 97
[2017-01-20] MEDS: Digoxin 125 mcg (0.125 mg) Tab PO SCH (13:59)
[2017-01-20 14:03] VITALS: PULSE 72
--- NOTE | 2017-01-21 08:05 | DS ---
The patient is a 51-year-old, who was admitted with abdominal pain. He was found to be constipated, was given laxative. He had a couple of large bowel movements. Later on he developed diarrhea. He a lso had abnormal LFTs. Complaining of and abdominal pain. Had MRCP done that shows sludge in the gallbladder and stone in the distal common bile duct, so he had MRCP done under general anesthesi a. So ERCP was planned by Dr. Burnham, and had sphincterotomy done, had drained, and gallbladder stone removed. he was given platelets prior and during the procedure, he did well. PHYSICAL EXAMINATION: GENERAL: The patient is awake and alert, communicative. VITAL SIGNS: He is afebrile, pulse 90, respirations 20, blood pressure 92/62. LUNGS: Bilateral fair airflow. No rhonchi or crackle. HEART: S1, S2 audible. ABDOMEN: Soft, nontender. No rebound. No guarding. NEUROLOGIC: He is awake and alert. LABORATORY EXAM: WBC is 4.8, hemoglobin 8, hematocrit 52. ASSESSMENT: 1. sludge and stone in the bile duct. 2. Clostridium difficile colitis. 3. Pancytopenia. 4. Waldenstrom gammaglobulinemia 5. Chronic atrial fibrillation. 6. History of hypertension. PLAN: The patient will be discharged home on 300 twice a day. He is being discharged on digox in. Because of his pancytopenia, he has been taken off of Coumadin. He will continue digoxin. He g iven prescription of Percocet, and Lasix he takes intermittently, and he will be discharged on p.o. v ancomycin 250 q.i.d. for 1 more week. Pepito Gavin MD cc: [phone] TT: 01/20/2017 23:34:01 ar
--- NOTE | 2017-02-10 15:45 | RAD ---
PROCEDURE: ERCP HISTORY: R/O OBSTRUCTION COMPARISON: TECHNIQUE: Fluoroscopy was provided in the endoscopy suite. Six images were submitted FINDINGS: Study shows passage of a wire and balloon catheter through a dilated common duct. IMPRESSION: As above
== END 2017-01-20 14:46 | disposition home or self-care (01) | DRG 445 ==
LOC: ED 19:12 → ERH 23:41 → 3RSO 01-10 00:56
PROVIDERS: ADMIT Internal Medicine Medical Oncology; ATTEND Internal Medicine
PROC: 30233N1 Transfusion of Nonautologous Red Blood Cells into Peripheral Vein, Percutaneous Approach (ICD-10-PCS; 2017-01-11)
PROC: 0DJ08ZZ Inspection of Upper Intestinal Tract, Via Natural or Artificial Opening Endoscopic (ICD-10-PCS; 2017-01-18)
PROC: BF43ZZZ Ultrasonography of Gallbladder and Bile Ducts (ICD-10-PCS; 2017-01-18)
PROC: 30233R1 Transfusion of Nonautologous Platelets into Peripheral Vein, Percutaneous Approach (ICD-10-PCS; 2017-01-18)
PROC: 0FC98ZZ Extirpation of Matter from Common Bile Duct, Via Natural or Artificial Opening Endoscopic (ICD-10-PCS; principal; 2017-01-18 11:30)
DX: K80.65 Calculus of gallbladder and bile duct with chronic cholecystitis with obstruction (principal); D61.818 Other pancytopenia; A04.7 Enterocolitis due to Clostridium difficile; C88.0 Waldenstrom macroglobulinemia; I42.9 Cardiomyopathy, unspecified; I11.0 Hypertensive heart disease with heart failure; I50.9 Heart failure, unspecified; J98.11 Atelectasis; I48.2 Chronic atrial fibrillation; I25.10 Atherosclerotic heart disease of native coronary artery without angina pectoris; J44.9 Chronic obstructive pulmonary disease, unspecified; G89.4 Chronic pain syndrome; K29.70 Gastritis, unspecified, without bleeding; K59.00 Constipation, unspecified; M48.50XD Collapsed vertebra, not elsewhere classified, site unspecified, subsequent encounter for fracture with routine healing; M54.9 Dorsalgia, unspecified; Z93.3 Colostomy status; Z79.01 Long term (current) use of anticoagulants; Z86.73 Personal history of transient ischemic attack (TIA), and cerebral infarction without residual deficits; Z90.49 Acquired absence of other specified parts of digestive tract; Z87.891 Personal history of nicotine dependence

== ENCOUNTER 2017-05-12 00:02 | Inpatient (IN) | payer MEDICARE, OTHER ==
[2017-05-12 00:03] VITALS: BMI 26.5
--- NOTE | 2017-05-12 00:24 | ED PDOC ---
Arrival/HPI - General Chief Complaint: Back Pain Time Seen by Provider: 05/12/17 00:10 Historian: Patient - History of Present Illness Narrative History of Present Illness (Text): 05/12/17 00:22 Td Garcia is a 51 year old male, whose past medical history includes chronic atrial fibrillation, CAD, Waldenstrom macroglobulinemia, status post colectomy/colostomy, COPD, and multiple spinal fractures, who presents to the emergency department brought in by EMS complaining of back pain. Patient states he has a history of chronic back pain but reports he has been experiencing worsening mid-back pain over his pressure ulcer. Patient states he is bed-ridden , but notes pain is worsened when placing pressure on his back or rolling over in bed. Patient denies any history of known fever, chills, chest pain, shortness of breath, nausea, vomiting, headache, dizziness, or any other complaints. PMD: Dr. Messi Gavin Symptom Onset: Gradual Symptom Course: Worsening Activities at Onset: Rest, Light Context: Home Past Medical History - Provider Review Nursing Documentation Reviewed: Yes - Infectious Disease Hx of Infectious Diseases: None - Cardiac Hx Cardiac Disorders: Yes Hx Atrial Fibrillation: Yes Hx Congestive Heart Failure: Yes Hx Hypertension: Yes - Pulmonary Hx Chronic Obstructive Pulmonary Disease (COPD): No Other/Comment: on home O2 for low sat - Neurological Hx Transient Ischemic Attacks (TIA): No - HEENT Hx HEENT Disorder: No Hx Blind: No Hx Cataracts: No Hx Deafness: No Hx Difficulty Chewing: No Hx Epistaxis: No Hx Glaucoma: No Hx Macular Degeneration: No - Renal Hx Renal Failure: No - Endocrine/Metabolic Hx Diabetes Mellitus Type 1: No Hx Diabetes Mellitus Type 2: No - Hematological/Oncological Hx Blood Transfusions: Yes Hx Blood Transfusion Reaction: No Hx Cancer: Yes (Blood Cancer as per patient) Hx Chemotherapy: Yes - Integumentary Hx Dermatological Disorder: No Hx Basal Cell Carcinoma: No Hx Eczema: No Hx Melanoma: No Hx Psoriasis: No Hx Squamous Cell Carcinoma: No - Musculoskeletal/Rheumatological Hx Back Pain: Yes Hx Falls: Yes - Gastrointestinal Hx Gastrointestinal Disorders: Yes Hx Bowel Surgery: Yes Hx Colostomy: Yes (LUQ) Hx Crohn's Disease: No Hx Diverticulitis: Yes Hx Gall Bladder Disease: No Hx Gastroesophageal Reflux: No Hx Ileostomy: No Hx Liver Failure: No Hx Pancreatitis: No HX Swallowing Problems: No - Genitourinary/Gynecological Hx Genitourinary Disorders: No Hx Hematuria: No Hx Incontinence: No Hx Prostate Problems: No Hx Sexually Transmitted Diseases: No Hx Urinary Tract Infection: Yes - Psychiatric Hx Emotional Abuse: No Hx Physical Abuse: No Hx Substance Use: No - Surgical History Other/Comment: Colostomy - Anesthesia Hx Anesthesia: Yes Hx Anesthesia Reactions: No Hx Malignant Hyperthermia: No - Suicidal Assessment Feels Threatened In Home Enviroment: No Family/Social History - Physician Review Nursing Documentation Reviewed: Yes Family/Social History: Unknown Family HX Smoking Status: Never Smoked Hx Alcohol Use: No Hx Substance Use: No Allergies/Home Meds Allergies/Adverse Reactions: Allergies No Known Allergies Allergy (Verified 03/28/16 19:46) Home Medications: Home Meds Medication Instructions Recorded Confirmed Furosemide [Lasix] 20 mg PO DAILY 01/10/17 05/12/17 Review of Systems - Physician Review All systems were reviewed & negative as marked: Yes - Review of Systems Constitutional: Normal. absent: Fevers Eyes: Normal ENT: Normal Respiratory: Normal. absent: SOB, Cough Cardiovascular: Normal. absent: Chest Pain Gastrointestinal: Normal. absent: Abdominal Pain, Diarrhea, Nausea, Vomiting Genitourinary Male: Normal. absent: Dysuria, Frequency, Hematuria, Urinary Output Changes Musculoskeletal: Back Pain Skin: Ulcer (+mid-back ulcer) Neurological: Normal. absent: Headache, Dizziness Endocrine: Normal Hemo/Lymphatic: Normal Psychiatric: Normal Physical Exam Vital Signs Reviewed: Yes Vital Signs Temp Pulse Resp BP Pulse Ox 05/12/17 04:01 88 16 96/66 L 100 05/12/17 01:00 97.4 F L 98 H 17 109/64 99 05/12/17 00:07 97.4 F L 105 H 19 109/62 100 Temperature: Afebrile Blood Pressure: Normal Pulse: Regular Respiratory Rate: Normal Appearance: Positive for: Well-Appearing, Non-Toxic, Comfortable Pain Distress: None Mental Status: Positive for: Alert and Oriented X 3 - Systems Exam Head: Present: Atraumatic, Normocephalic Pupils: Present: PERRL Extroacular Muscles: Present: EOMI Conjunctiva: Present: Normal Mouth: Present: Moist Mucous Membranes Neck: Present: Normal Range of Motion Respiratory/Chest: Present: Clear to Auscultation, Good Air Exchange. No: Respiratory Distress, Accessory Muscle Use Cardiovascular: Present: Regular Rate and Rhythm, Normal S1, S2. No: Murmurs Abdomen: Present: Normal Bowel Sounds, Other (Colostomy noted, clear, no erythema). No: Tenderness, Distention, Peritoneal Signs Back: Present: Decubitus Ulcer (Infected decubitus ulcer, abscess, and cellulitis of mid-dorsal spine) Upper Extremity: Present: Normal Inspection. No: Cyanosis, Edema Lower Extremity: Present: Normal Inspection. No: Edema Neurological: Present: GCS=15, CN II-XII Intact, Speech Normal Skin: Present: Warm, Dry, Normal Color. No: Rashes Psychiatric: Present: Alert, Oriented x 3, Normal Insight, Normal Concentration Medical Decision Making ED Course and Treatment: 05/12/17 00:22 Impression: 51 year old male complaining of worsening mid-back pain over pressure ulcer. Differential Diagnosis included but are not limited to: infected decubitus ulcer vs. cellulitis vs. abscess Plan: -- EKG -- Chest X-ray -- CT Lumbar Spine w/o contrast -- Labs, blood cultures -- IV fluids -- Vanco -- Zosyn -- Reassess and disposition Prior Visits: Notes and results from previous visits were reviewed. On 01/09/2017, pt was seen in the Emergency department for epigastric discomfort. Pt was admitted to the hospital for further evaluation. Progress Notes: Reviewed EKG, a fib at 103 bpm. Occasional PVC. Non-specific ST/T wave changes. 05/12/17 01:23 Reviewed labs, hemoglobin: 6.9. Blood type/screen and packed red blood cells ordered. 05/12/17 02:19 Reviewed radiology, CT Lumbar Spine shows: Dense infiltration of the posterior spinous soft tissues, within the area of clinical concern without a discrete soft tissue fluid collection identified. Moderate bilateral pleural effusions, with adjacent compressive atelectasis. Kyphosis and degenerative disease, as detailed above. 05/12/17 03:[address] Dixon, covering for Dr. Gavin, who is aware and agrees with plan. Pt will be admitted to [facility] for pancytopenia, infected back decubitus/abscess, cellulitis, and anemia under Dr. Gavin's service. - Lab Interpretations Lab Results: 05/12/17 00:56 05/12/17 00:56 Lab Results 05/12/17 00:56: PT 13.3 H, INR 1.23 H, APTT 29.9 05/12/17 00:56: WBC 0.7 L* D, RBC 2.05 L, Hgb 6.9 L*, Hct 21.4 L, MCV 104.4, MCH 33.7, MCHC 32.2, RDW 16.7 H, Plt Count 46 L*, MPV 9.8, Neutrophils % (Manual ) 76 H, Lymphocytes % (Manual) 14 L, Monocytes % (Manual) 10 H, Platelet Evaluation Low, Anisocytosis (manual) 1+ 05/12/17 00:56: Sodium 136, Potassium 3.6, Chloride 94 L, Carbon Dioxide 33, Anion Gap 13, BUN 11, Creatinine 0.5, Est GFR ( Amer) > 60, Est GFR (Non- Af Amer) > 60, Random Glucose 101, Calcium 8.7, Total Bilirubin 1.9 H, AST 17, ALT 24, Alkaline Phosphatase 69, Total Protein 7.0, Albumin 3.3, Globulin 3.7, Albumin/Globulin Ratio 0.9 L I have reviewed the lab results: Yes - RAD Interpretation Narrative RAD Interpretations (Text): CT Lumbar Spine shows: Vertebrae: Multiple compression fractures within the lower thoracic spine, unchanged from 09/19/2016. Discs/spinal canal/neural foramina: No acute findings. Moderate kyphosis. Compression of multiple mid-to lower thoracic vertebral bodies, similar to previous examination performed 09/19/2016. Soft tissues: Infiltration of the posterior spinous soft tissues from the level of T8-T12, without a discrete fluid collection or osseous exposure. Other findings: Moderate bilateral pleural effusions, with adjacent compressive atelectasis. IMPRESSION: Dense infiltration of the posterior spinous soft tissues, within the area of clinical concern without a discrete soft tissue fluid collection identified. Moderate bilateral pleural effusions, with adjacent compressive atelectasis. Kyphosis and degenerative disease, as detailed above. Radiology Orders: 05/12/17 00:24 CHEST PORTABLE [RAD] Stat 05/12/17 00:42 THORACIC SPINE W/O CONT [CT] Stat [employer]: Radiologist - EKG Interpretation Interpreted by ED Physician: Yes Type: 12 lead EKG - Medication Orders Current Medication Orders: Digoxin (Lanoxin) 0.125 mg PO 1400 LUZ Last Admin: 05/12/17 13:35 Dose: 0.125 mg Sodium Chloride (Sodium Chloride 0.9%) 1,000 mls @ 100 mls/hr IV .Q10H LUZ Last Admin: 05/12/17 10:40 Dose: Meropenem 1g/NS 100mL IVPB (Meropenem 1g/Ns 100ml Ivpb) 1 gm in 100 mls @ 100 mls/hr IVPB Q8 LUZ PRN Reason: Protocol Stop: 05/19/17 14:31 Last Admin: 05/12/17 15:19 Dose: 100 mls/hr Vancomycin HCl (Vancomycin 1gm) 1 gm in 250 mls @ 167 mls/hr IVPB Q12H LUZ PRN Reason: Protocol Last Admin: 05/12/17 15:19 Dose: 167 mls/hr Morphine Sulfate (Morphine) 4 mg IVP Q4H PRN PRN Reason: Pain, moderate (4-7) Last Admin: 05/12/17 17:58 Dose: 4 mg Pantoprazole Sodium (Protonix Ec Tab) 20 mg PO 0600 LUZ Ursodiol (Actigall) 300 mg PO BID [facility] Last Admin: 05/12/17 18:18 Dose: 300 mg Discontinued Medications Furosemide (Lasix) 20 mg PO DAILY [facility] Vancomycin HCl (Vancomycin 1gm) 1 gm in 250 mls @ 167 mls/hr IVPB STAT STA PRN Reason: Protocol Stop: 05/12/17 02:02 Last Admin: 05/12/17 02:03 Dose: 167 mls/hr Piperacillin Sod/Tazobactam Sod (Zosyn 3.375 In Ns 100ml) 100 mls @ 200 mls/hr IV STAT STA PRN Reason: Protocol Stop: 05/12/17 00:57 Last Admin: 05/12/17 00:56 Dose: 200 mls/hr Piperacillin Sod/Tazobactam Sod (Zosyn 2.25 Gm In 0.9% 100 Ml) 2.25 gm in 100 mls @ 100 mls/hr IVPB Q6 LUZ PRN Reason: Protocol Stop: 05/12/17 18:59 Last Admin: 05/12/17 17:58 Dose: 100 mls/hr Morphine Sulfate (Morphine) 4 mg IVP STAT STA Stop: 05/12/17 00:36 Last Admin: 05/12/17 00:54 Dose: 4 mg Re-Assess: [facility] Pain Assessment Document 05/12/17 01:54 SC (Rec: 05/12/17 02:29 SC [id number]) Pain Reassessment Is this a pain reassessment? Yes Sleep Is patient sleeping during reassessment? No Presence of Pain Presence of Pain Yes Pain Scale Used Pain Scale Used Numeric Description Intensity of Pain at present 5 Morphine Sulfate (Morphine) 4 mg IVP STAT STA Stop: 05/12/17 02:38 Last Admin: 05/12/17 02:48 Dose: 4 mg Re-Assess: [facility] Pain Assessment Document 05/12/17 03:48 RS (Rec: 05/12/17 07:41 RS [id number]) Pain Reassessment Is this a pain reassessment? Yes Sleep Is patient sleeping during reassessment? Yes Ursodiol (Actigall) 300 mg PO 0800 LUZ - Scribe Statement The provider has reviewed the documentation as recorded by the Maryibbell Stanley Provider Scribe Attestation: All medical record entries made by the Scribe were at my direction and personally dictated by me. I have reviewed the chart and agree that the record accurately reflects my personal performance of the history, physical exam, medical decision making, and the department course for this patient. I have also personally directed, reviewed, and agree with the discharge instructions and disposition. Disposition/Present on Arrival - Present on Arrival Any Indicators Present on Arrival: No History of DVT/PE: No History of Uncontrolled Diabetes: No Urinary Catheter: No History of Decub. Ulcer: Yes History Surgical Site Infection Following: Bariatric Surgery - Disposition Have Diagnosis and Disposition been Completed?: Yes Diagnosis: Cellulitis, Anemia Disposition: HOSPITALIZED Disposition Time: 03:20 Patient Plan: Admission Condition: STABLE
[2017-05-12] MEDS ORDERED: Piperacillin/Tazobact 3.375 gm 100 ML IV STA (00:28)
[2017-05-12] MEDS ORDERED: Vancomycin 1gm in NS 250ml 1 GM/250 ML BAG IVPB STA (00:33)
[2017-05-12] MEDS ORDERED: Morphine 4 mg/ml ISec IVP STA (00:35)
[2017-05-12 00:59] LABS: MEAN CELL VOLUME 104.4 fl (80.0-105.0); MEAN CORPUSCULAR HEMOGLOBIN 33.7 pg (25.0-35.0); MEAN CORPUSCULAR HGB CONC 32.2 g/dl (31.0-37.0); MEAN PLATELET VOLUME 9.8 fl (7.0-11.0); PLATELET COUNT 46 10^3/uL (120.0-450.0); RED CELL DISTRIBUTION WIDTH 16.7 % (11.5-14.5)
[2017-05-12 01:06] LABS: INR 1.23 (0.93-1.08); PARTIAL THROMBOPLASTIN TIME 29.9 Seconds (23.7-30.8)
[2017-05-12 01:07] LABS: ALB/GLOB RATIO 0.9 (1.1-1.8); ALKALINE PHOSPHATASE 69 U/L (38-133); ALT/SGPT 24 U/L (7-56); AST/SGOT 17 U/L (15-59); BILIRUBIN,TOTAL 1.9 mg/dL (0.2-1.3); BLOOD UREA NITROGEN 11 mg/dL (7-21); CALCIUM 8.7 mg/dL (8.4-10.5); CARBON DIOXIDE 33 mmol/L (21-33); CHLORIDE 94 mmol/L (95-110); GFR AFRICAN-AMERICAN > 60; GLUCOSE,RANDOM 101 mg/dL (70-110); POTASSIUM 3.6 mmol/L (3.6-5.0); SODIUM 136 mmol/L (132-148)
[2017-05-12 01:20] LABS: WHITE BLOOD COUNT 0.7 10^3/ul (4.5-11.0)
[2017-05-12 01:21] LABS: HEMATOCRIT 21.4 % (42.0-52.0)
--- NOTE | 2017-05-12 02:15 | CT ---
EXAM: CT Thoracic Spine Without Intravenous Contrast CLINICAL HISTORY: 51 years old, male; Pain; Pain in thoracic spine; Without myelpathy or radiculopathy; Additional info: Overlying skin abscess/back pain TECHNIQUE: Axial computed tomography images of the thoracic spine without intravenous contrast. All CT scans at this facility use one or more dose reduction techniques, viz.: automated exposure control; ma/kV adjustment per patient size (including targeted exams where dose is matched to indication; i.e. head); or iterative reconstruction technique. Coronal and sagittal reformatted images were created and reviewed. COMPARISON: Reference was made to a CT examination of the chest performed 09/19/2016. FINDINGS: Vertebrae: Multiple compression fractures within the lower thoracic spine, unchanged from 09/19/2016. Discs/spinal canal/neural foramina: No acute findings. Moderate kyphosis. Compression of multiple mid-to lower thoracic vertebral bodies, similar to previous examination performed 09/19/2016. Soft tissues: Infiltration of the posterior spinous soft tissues from the level of T8-T12, without a discrete fluid collection or osseous exposure. Other findings: Moderate bilateral pleural effusions, with adjacent compressive atelectasis. IMPRESSION: Dense infiltration of the posterior spinous soft tissues, within the area of clinical concern without a discrete soft tissue fluid collection identified. Moderate bilateral pleural effusions, with adjacent compressive atelectasis. Kyphosis and degenerative disease, as detailed above.
[2017-05-12] MEDS: Sodium Chloride 0.9% 1,000 ML IV SCH ×2 (02:29→10:40)
[2017-05-12] MEDS ORDERED: Morphine 2 mg/ml ISec IVP STA (02:37)
[2017-05-12 03:49] LABS: NEUTROPHIL 76 % (50.0-70.0)
[2017-05-12 03:50] LABS: ANISOCYTOSIS 1+; PLATELET ESTIMATE LOW (NORMAL)
[2017-05-12] MEDS: Morphine 4 mg/ml ISec IVP PRN ×5 (06:26→22:11)
--- NOTE | 2017-05-12 09:52 | CP.PCM.HP ---
<Elsie Alejandro - Last Filed: 05/12/17 13:28> History of Present Illness - History of Present Illness History of Present Illness: CC: Worsening back pain Patient is a 51 y/o with pmh of Waldenstrom's macroglobulinemia ( on chemo), pancytopenia, Afib ( not on anticoag), Diverticulitis s/p Hartmans' procedure with colostomy, choledocolithiasis with h/o ERCP, chronic back pain 2nd to spinal fractures, chronic hypotension, bed bound presenting with worsening of the mid back pain and wound in the back. Patient states since his spinal fracture 3 years ago, he has been experiencing back pain, and has not been able to ambulate, he spends most of his time lying on the bed, and rarely uses a wheelchair to get around. Patient states he noticed the mid back pain getting worst 3 days ago. When his son evaluated the back, he noted he had a wound there. Patient decided to come in today, because spinal wound is affecting his ability to sleep. Patient other camp denies cp, sob, n/v/d, denies fever or chills. Denies bowel or bladder incontinent. Denies trauma. Patient has been getting chemo since October. Has history of multiple transfusions. Patient also has chronic hypotension. Denies dizziness, lightheadedness and headache. Denies night sweats, weight loss. PMH: Waldenstrom's macroglobulinemia ( on chemo), pancytopenia, Afib ( not on anticoag), Diverticulitis s/p Hartmans' procedure with colostomy, choledocolithiasis with h/o ERCP, chronic back pain 2nd to spinal fractures, chronic hypotension, bed bound CAD, right sided heart failure, h/o c diff. PSH: ERCP, Hartmans procedure FMH: Dad had prostate cancer, and bone marrow disease, brother OA. Social: Former tobacco, denies alcohol or illicit drug use. Bed bound, son and does the ADLs. Present on Admission - Present on Admission Any Indicators Present on Admission: No History of DVT/PE: No History of Uncontrolled Diabetes: No Urinary Catheter: No Decubitus Ulcer Present: No Review of Systems - Review of Systems All systems: reviewed and no additional remarkable complaints except Review of Systems: As per HPI. Past Patient History - Infectious Disease Hx of Infectious Diseases: None - Past Social History Smoking Status: Former Smoker Alcohol: None Drugs: Denies Home Situation {Lives}: With Family - CARDIAC Hx Cardiac Disorders: Yes Hx Congestive Heart Failure: Yes Hx Hypertension: Yes - PULMONARY Hx Chronic Obstructive Pulmonary Disease (COPD): No Other/Comment: on home O2 for low sat - NEUROLOGICAL Hx Transient Ischemic Attacks (TIA): No - HEENT Hx HEENT Problems: No Hx Blind: No Hx Cataracts: No Hx Deafness: No Hx Difficulty Chewing: No Hx Epistaxis: No Hx Glaucoma: No Hx Macular Degeneration: No - RENAL Hx Renal Failure: No - ENDOCRINE/METABOLIC Hx Diabetes Mellitus Type 1: No Hx Diabetes Mellitus Type 2: No - HEMATOLOGICAL/ONCOLOGICAL Hx Cancer: Yes (Blood Cancer as per patient) Hx Chemotherapy: Yes - INTEGUMENTARY Hx Dermatological Problems: No Hx Basil Cell: No Hx Eczema: No Hx Melanoma: No Hx Psoriasis: No Hx Squamous Cell: No - MUSCULOSKELETAL/RHEUMATOLOGICAL Hx Back Pain: Yes Hx Falls: Yes - GASTROINTESTINAL Hx Gastrointestinal Disorders: Yes Hx Colostomy: Yes (LUQ) Hx Crohn's Disease: No Hx Diverticulitis: Yes Hx Gall Bladder Disease: No Hx Gastroesophageal Reflux: No Hx Ileostomy: No Hx Liver Failure: No Hx Pancreatitis: No HX Swallowing Problems: No - GENITOURINARY/GYNECOLOGICAL Hx Genitourinary Disorders: No Hx Hematuria: No Hx Incontinence: No Hx Prostate Problems: No Hx Sexually Transmitted Disorders: No Hx Urinary Tract Infection: Yes - PSYCHIATRIC Hx Emotional Abuse: No Hx Physical Abuse: No - SURGICAL HISTORY Other/Comment: Colostomy - ANESTHESIA Hx Anesthesia: Yes Hx Anesthesia Reactions: No Hx Malignant Hyperthermia: No Meds Allergies/Adverse Reactions: Allergies Allergy/AdvReac Type Severity Reaction Status Date / Time No Known Allergies Allergy Verified 03/28/16 19:46 Physical Exam - Constitutional Appears: No Acute Distress, Older Than Stated Age, Chronically Ill - Head Exam Head Exam: ATRAUMATIC, NORMAL INSPECTION, NORMOCEPHALIC - Eye Exam Eye Exam: EOMI, Normal appearance, PERRL. absent: Scleral icterus Pupil Exam: NORMAL ACCOMODATION, PERRL - ENT Exam ENT Exam: Mucous Membranes Moist, Normal Exam - Neck Exam Neck exam: Positive for: Full Rom, Normal Inspection - Respiratory Exam Respiratory Exam: Clear to Auscultation Bilateral, NORMAL BREATHING PATTERN. absent: Rales, Rhonchi, Wheezes, Respiratory Distress, Stridor - Cardiovascular Exam Cardiovascular Exam: Irregular Rhythm, RRR, +S1, +S2, Systolic Murmur. absent: Gallop, JVD, Rubs - GI/Abdominal Exam GI & Abdominal Exam: Normal Bowel Sounds, Soft. absent: Distended, Firm, Guarding, Rigid, Tenderness Additional comments: ostomy bag in place. - Extremities Exam Extremities exam: Positive for: pedal edema. Negative for: tenderness Additional comments: dry skin, with thick skin pads, flaky, malformed toe nails. open wound on the feet. - Back Exam Back exam: tenderness Additional comments: ~2 cm wound surrounded by erythema, the wound is dry and crusted, no drainage noted. Edematous and abscess like pocket on palpation. - Neurological Exam Neurological exam: Alert, Oriented x3 - Psychiatric Exam Psychiatric exam: Normal Affect, Normal Mood - Skin Skin Exam: Dry, Intact, Warm Results - Vital Signs Recent Vital Signs: Last Vital Signs Temp 98 F 05/12/17 08:20 Pulse 90 05/12/17 08:20 Resp 17 05/12/17 08:20 BP 86/57 L 05/12/17 08:20 Pulse Ox 100 05/12/17 04:01 - Labs Result Diagrams: 05/12/17 00:56 05/12/17 00:56 Labs: Laboratory Results - last 24 hr 05/12/17 04:00 Blood Type A NEGATIVE Antibody Screen Negative Crossmatch See Detail BBK History Checked Patient has bt Assessment & Plan - Assessment and Plan (Free Text) Assessment: 1) Mid back pain, abscess and cellulites. 2) Worsening pancytopenia ANC of 532 3) Waldenstrom's macroglobulinemia ( on chemo), 4) Chronic Afib ( not on anticoag), 5) Diverticulitis s/p Hartmans' procedure with colostomy, 6) Chronic hypotension, 7) CAD w/ h/o right sided heart failure Plan: Hemoglobin of 6.9, patient is currently getting transfused 2 unit of prn, will check cbc post transfusion. On neutropenic precaution, afebrile. Heme/onc consulted. Surgery consulted for mid back abscess, ID is also following. Rec spinal MRI to evaluate for osteomyolitis. Will continue zosyn, received a dose of vanco in the ED. BCX sent pending. Morphine prn for pain. Will continue digoxin for afib, not on anticoagulation due to severe pancytopenia and coagulopathy. Will hold off Lasix due to hypotension. Will continue with ursodial for choledocholithaisis. Protonix for gi prophylaxis. SCDs for DVT prophylaxis. Patient seen, examined, and case discussed with Dr Dixon. - Date & Time Date: 05/12/17 Time: 11:00 <Waqas Dixon - Last Filed: 05/12/17 21:49> Results - Vital Signs Recent Vital Signs: Last Vital Signs Temp 97.6 F 05/12/17 16:26 Pulse 99 H 05/12/17 16:26 Resp 18 05/12/17 16:26 BP 94/62 L 05/12/17 16:26 Pulse Ox 99 05/12/17 16:26 - Labs Result Diagrams: 05/12/17 00:56 05/12/17 00:56 Labs: Laboratory Results - last 24 hr 05/12/17 05/12/17 04:00 15:00 Urine Color Dark yellow Urine Appearance Clear Urine pH 7.5 Ur Specific Dennis 1.020 Urine Protein Trace H Urine Glucose (UA) Negative Urine Ketones Negative Urine Blood Negative Urine Nitrate Negative Urine Bilirubin Small H Urine Urobilinogen 4.0 H Ur Leukocyte Esterase Negative Urine RBC 0 - 2 Urine WBC 0 - 2 Ur Epithelial Cells 0 - 2 Urine Bacteria Trace Blood Type A NEGATIVE Antibody Screen Negative Crossmatch See Detail BBK History Checked Patient has bt Assessment & Plan - Assessment and Plan (Free Text) Plan: Pt seen and examined. Resident note reviewed and I agree with it. Pancytopenia. Pt will need Heme evaluation. Possible abscess on back. Will get surgery evaluation.
--- NOTE | 2017-05-12 10:52 | CP.PCM.CON ---
History of Present Illness - History of Present Illness History of Present Illness: Gen Surg: Dr Mas Mr. Garcia is a 51 year old male with a PMHx of Waldenstrom macroglobulinemia, chronic A fib, osteoarthritis, s/p Nneka's for perforated diverticulitis, and multiple spinal fractures who presents with the complaint of new onset back pain x 3days. Pt is on chemotherapy 1/month and currently pancytopenic. Pt states the pain has been getting progressively worse and radiates to the sides of his back. Denies any associated symptoms including fever, chills, incontinence, numbness, tingling, and loss of sensation. Also denies headache, dizziness, n/v/d. Review of Systems - Review of Systems All systems: reviewed and no additional remarkable complaints except (as per hpi ) - Constitutional Constitutional: As Per HPI - EENT Eyes: As Per HPI Ears: As Per HPI Nose/Mouth/Throat: As Per HPI - Cardiovascular Cardiovascular: As Per HPI - Respiratory Respiratory: As Per HPI. absent: Wheezing - Gastrointestinal Gastrointestinal: As Per HPI - Genitourinary Genitourinary: As Per HPI - Musculoskeletal Musculoskeletal: As Per HPI - Integumentary Integumentary: As Per HPI - Neurological Neurological: As Per HPI Past Patient History - Infectious Disease Hx of Infectious Diseases: None - Past Social History Smoking Status: Never Smoked - CARDIAC Hx Cardiac Disorders: Yes Hx Congestive Heart Failure: Yes Hx Hypertension: Yes - PULMONARY Hx Chronic Obstructive Pulmonary Disease (COPD): No Other/Comment: on home O2 for low sat - NEUROLOGICAL Hx Transient Ischemic Attacks (TIA): No - HEENT Hx HEENT Problems: No Hx Blind: No Hx Cataracts: No Hx Deafness: No Hx Difficulty Chewing: No Hx Epistaxis: No Hx Glaucoma: No Hx Macular Degeneration: No - RENAL Hx Renal Failure: No - ENDOCRINE/METABOLIC Hx Diabetes Mellitus Type 1: No Hx Diabetes Mellitus Type 2: No - HEMATOLOGICAL/ONCOLOGICAL Hx Cancer: Yes (Blood Cancer as per patient) Hx Chemotherapy: Yes - INTEGUMENTARY Hx Dermatological Problems: No Hx Basil Cell: No Hx Eczema: No Hx Melanoma: No Hx Psoriasis: No Hx Squamous Cell: No - MUSCULOSKELETAL/RHEUMATOLOGICAL Hx Back Pain: Yes Hx Falls: Yes - GASTROINTESTINAL Hx Gastrointestinal Disorders: Yes Hx Colostomy: Yes (LUQ) Hx Crohn's Disease: No Hx Diverticulitis: Yes Hx Gall Bladder Disease: No Hx Gastroesophageal Reflux: No Hx Ileostomy: No Hx Liver Failure: No Hx Pancreatitis: No HX Swallowing Problems: No - GENITOURINARY/GYNECOLOGICAL Hx Genitourinary Disorders: No Hx Hematuria: No Hx Incontinence: No Hx Prostate Problems: No Hx Sexually Transmitted Disorders: No Hx Urinary Tract Infection: Yes - PSYCHIATRIC Hx Emotional Abuse: No Hx Physical Abuse: No - SURGICAL HISTORY Other/Comment: Colostomy - ANESTHESIA Hx Anesthesia: Yes Hx Anesthesia Reactions: No Hx Malignant Hyperthermia: No Meds Allergies/Adverse Reactions: Allergies Allergy/AdvReac Type Severity Reaction Status Date / Time No Known Allergies Allergy Verified 03/28/16 19:46 - Medications Medications: Current Medications Digoxin (Lanoxin) 0.125 mg PO 1400 LUZ Sodium Chloride (Sodium Chloride 0.9%) 1,000 mls @ 100 mls/hr IV .Q10H LUZ Last Admin: 05/12/17 10:40 Dose: Not Given Morphine Sulfate (Morphine) 4 mg IVP Q4H PRN PRN Reason: Pain, moderate (4-7) Last Admin: 05/12/17 10:04 Dose: 4 mg Physical Exam - Constitutional Appears: Non-toxic, No Acute Distress, Chronically Ill - Eye Exam Eye Exam: Normal appearance - ENT Exam ENT Exam: Mucous Membranes Moist - Respiratory Exam Respiratory Exam: absent: Accessory Muscle Use, Respiratory Distress - Cardiovascular Exam Cardiovascular Exam: absent: Tachycardia Additional comments: hypotensive 80/60s - GI/Abdominal Exam GI & Abdominal Exam: Soft. absent: Tenderness - Rectal Exam Rectal Exam: Deferred - Back Exam Additional comments: mid-back 4 x 6 cm erythmatous fluctuant lesion with a 1 cm ulcerated center around T8-T10 - Neurological Exam Neurological exam: Alert, Oriented x3 - Psychiatric Exam Psychiatric exam: Normal Mood - Skin Skin Exam: Dry, Erythema Results - Vital Signs Recent Vital Signs: Last Vital Signs Temp 98.2 F 05/12/17 10:18 Pulse 84 05/12/17 10:18 Resp 19 05/12/17 10:18 BP 87/49 L 05/12/17 10:18 Pulse Ox 100 05/12/17 04:01 - Labs Result Diagrams: 05/12/17 00:56 05/12/17 00:56 Labs: Laboratory Results - last 24 hr 05/12/17 04:00 Blood Type A NEGATIVE Antibody Screen Negative Crossmatch See Detail BBK History Checked Patient has bt Assessment & Plan - Assessment and Plan (Free Text) Assessment: 51M currently pancytopenic 2/2 chemotherapy, presents with new onset back abscess/cellulitis PLAN -currently no identifiable drainable fluid collection -per CT, does not appear to extend to spine - continue Abx per ID - warm compresses Q2H -will cont to follow, may need drainage if does not resolve will d/w Dr Chace Olmstead, PGY3
[2017-05-12] MEDS: Piperacillin/Tazobact 2.25gm 2.25 GM/100 ML BAG IVPB SCH ×2 (12:21→17:58)
[2017-05-12] MEDS: Digoxin 125 mcg (0.125 mg) Tab PO SCH (13:35)
--- NOTE | 2017-05-12 14:35 | CP.PCM.CON ---
History of Present Illness - History of Present Illness History of Present Illness: 51 year old male with PMH of Waldenstrom's Macroglobinemia currently on chemotherapy, atrial fibrillation on anticoagulation, history of diverticulitis S/P Sharpe's procedure, history of stoma skin infection, history of vertebral compression fractures was brought in to [facility] because of worsening back pain for the past 3-4 days. He has chronic back pain but states that this is worse than usual. He denies specific trauma to the back, no procedures done on his back recently, no fever or chills, no nausea or vomiting , no headache or dizziness, no chest pain, no SOB, no diarrhea, no dysuria, no cough or colds. CT of the thoracic spine revealed dense infiltrates in the tissues of the posterior spinous processes and Infectious Diseases consult is requested to further evaluate and manage. Review of Systems - Review of Systems All systems: reviewed and no additional remarkable complaints except (as per HPI ) Past Patient History - Infectious Disease Hx of Infectious Diseases: None - Past Social History Smoking Status: Never Smoked - CARDIAC Hx Cardiac Disorders: Yes Hx Congestive Heart Failure: Yes Hx Hypertension: Yes - PULMONARY Hx Chronic Obstructive Pulmonary Disease (COPD): No Other/Comment: on home O2 for low sat - NEUROLOGICAL Hx Transient Ischemic Attacks (TIA): No - HEENT Hx HEENT Problems: No Hx Blind: No Hx Cataracts: No Hx Deafness: No Hx Difficulty Chewing: No Hx Epistaxis: No Hx Glaucoma: No Hx Macular Degeneration: No - RENAL Hx Renal Failure: No - ENDOCRINE/METABOLIC Hx Diabetes Mellitus Type 1: No Hx Diabetes Mellitus Type 2: No - HEMATOLOGICAL/ONCOLOGICAL Hx Cancer: Yes (Blood Cancer as per patient) Hx Chemotherapy: Yes - INTEGUMENTARY Hx Dermatological Problems: No Hx Basil Cell: No Hx Eczema: No Hx Melanoma: No Hx Psoriasis: No Hx Squamous Cell: No - MUSCULOSKELETAL/RHEUMATOLOGICAL Hx Back Pain: Yes Hx Falls: Yes - GASTROINTESTINAL Hx Gastrointestinal Disorders: Yes Hx Colostomy: Yes (LUQ) Hx Crohn's Disease: No Hx Diverticulitis: Yes Hx Gall Bladder Disease: No Hx Gastroesophageal Reflux: No Hx Ileostomy: No Hx Liver Failure: No Hx Pancreatitis: No HX Swallowing Problems: No - GENITOURINARY/GYNECOLOGICAL Hx Genitourinary Disorders: No Hx Hematuria: No Hx Incontinence: No Hx Prostate Problems: No Hx Sexually Transmitted Disorders: No Hx Urinary Tract Infection: Yes - PSYCHIATRIC Hx Emotional Abuse: No Hx Physical Abuse: No - SURGICAL HISTORY Other/Comment: Colostomy - ANESTHESIA Hx Anesthesia: Yes Hx Anesthesia Reactions: No Hx Malignant Hyperthermia: No Meds Allergies/Adverse Reactions: Allergies Allergy/AdvReac Type Severity Reaction Status Date / Time No Known Allergies Allergy Verified 03/28/16 19:46 - Medications Medications: Current Medications Digoxin (Lanoxin) 0.125 mg PO 1400 LUZ Furosemide (Lasix) 20 mg PO DAILY [facility] Sodium Chloride (Sodium Chloride 0.9%) 1,000 mls @ 100 mls/hr IV .Q10H LUZ Last Admin: 05/12/17 02:29 Dose: 100 mls/hr Morphine Sulfate (Morphine) 4 mg IVP Q4H PRN PRN Reason: Pain, moderate (4-7) Last Admin: 05/12/17 06:26 Dose: 4 mg Ursodiol (Actigall) 300 mg PO 0800 LUZ Physical Exam - Constitutional Appears: Non-toxic, No Acute Distress - Head Exam Head Exam: NORMAL INSPECTION - Neck Exam Neck exam: Negative for: Meningismus - Respiratory Exam Respiratory Exam: Decreased Breath Sounds - Cardiovascular Exam Cardiovascular Exam: +S1, +S2 - GI/Abdominal Exam GI & Abdominal Exam: Soft. absent: Tenderness Results - Vital Signs Recent Vital Signs: Last Vital Signs Temp 98.7 F 05/12/17 06:42 Pulse 85 05/12/17 06:42 Resp 19 05/12/17 06:42 BP 85/55 L 05/12/17 06:42 Pulse Ox 100 05/12/17 04:01 - Labs Result Diagrams: 05/12/17 00:56 05/12/17 00:56 Labs: Laboratory Results - last 24 hr 05/12/17 04:00 Blood Type A NEGATIVE Antibody Screen Negative Crossmatch See Detail BBK History Checked Patient has bt Assessment & Plan - Assessment and Plan (Free Text) Plan: assessment Consider sepsis due to thoracic area soft tissue infection (around the posterior spinous processes); no evidence of bony involvement and no fluid collection at the moment but an MRI would be the better imaging modality to rule out such processes Acute neutropenia without fever history of C. diff associated diarrhea, slowly improving Gram positive ross in one bottle, R/O contamination Leukopenia without fever, probably related to his Waldenstrom's macroglobulinemia history of intra-abdominal infection/colitis history of Acute sigmoid diverticulitis with abscess formation S/P resection and colostomy placement Waldenstrom's Macroglobinemia currently on chemotherapy atrial fibrillation on anticoagulation Plan Given the patient's history, we will start the patient on IV Vancomycin and Merrem pending blood cx Reviewed Surgery recommendations and they will observe the patient and recommend conservative management for now would suggest MRI of thoracic spine when feasible will monitor clinically
[2017-05-12] MEDS: Meropenem 1g/NS 100mL IVPB 1 GM/100 ML PIGGYBACK IVPB SCH ×2 (15:19→22:12)
[2017-05-12] MEDS: Vancomycin 1gm in NS 250ml 1 GM/250 ML BAG IVPB SCH (15:19)
[2017-05-12 15:21] LABS: PH,URINE 7.5 (4.7-8.0); URINE APPEARANCE CLEAR (CLEAR); URINE BILIRUBIN SMALL (NEGATIVE); URINE BLOOD NEGATIVE (NEGATIVE); URINE COLOR DARK YELLOW (YELLOW); URINE GLUCOSE (UA) NEGATIVE (NEGATIVE); URINE KETONE NEGATIVE (NEGATIVE); URINE LEUKOCYTE ESTERASE NEGATIVE Leu/uL (NEGATIVE); URINE PROTEIN TRACE mg/dL (<30 mg/dL)
[2017-05-12 15:54] LABS: URINE BACTERIA TRACE (NEG); URINE EPITHELIAL CELLS 0 - 2 /hpf (0-5); URINE RBC 0 - 2 /hpf (0-2); URINE WBC 0 - 2 /hpf (0-6)
--- NOTE | 2017-05-12 17:13 | CARD ---
APPROVED REPORT EKG Measurement Heart [id number] <Conclusion> Atrial fibrillation with rapid ventricular response with premature ventricular or aberrantly conducted complexes Low voltage QRS RSR' or QR pattern in V1 suggests right ventricular conduction delay Abnormal ECG
[2017-05-13] MEDS: Vancomycin 1gm in NS 250ml 1 GM/250 ML BAG IVPB SCH ×2 (02:03→14:23)
[2017-05-13] MEDS: Meropenem 1g/NS 100mL IVPB 1 GM/100 ML PIGGYBACK IVPB SCH ×3 (05:28→21:36)
[2017-05-13 06:07] LABS: EOS % 1.5 % (1.5-5.0); GRAN # 0.45 (1.4-6.5); GRAN % 69.3 % (50.0-68.0); LYMPH # 0.1 (1.2-3.4); LYMPH % 16.9 % (22.0-35.0); MEAN CELL VOLUME 103.6 fl (80.0-105.0); MEAN CORPUSCULAR HGB CONC 31.9 g/dl (31.0-37.0); MEAN PLATELET VOLUME 9.1 fl (7.0-11.0); MONO # 0.1 (0.1-0.6); MONO % 12.3 % (1.0-6.0)
[2017-05-13] MEDS: Morphine 4 mg/ml ISec IVP PRN ×2 (06:15→09:27)
[2017-05-13 06:16] LABS: HEMATOCRIT 22.9 % (42.0-52.0); PLATELET COUNT 38 10^3/uL (120.0-450.0); WHITE BLOOD COUNT 0.7 10^3/ul (4.5-11.0)
[2017-05-13] MEDS: Pantoprazole 20 mg EC Tab PO SCH (06:22)
[2017-05-13 06:32] LABS: ALB/GLOB RATIO 0.9 (1.1-1.8); ALKALINE PHOSPHATASE 55 U/L (38-133); ALT/SGPT 24 U/L (7-56); AST/SGOT 17 U/L (15-59); BILIRUBIN,TOTAL 1.7 mg/dL (0.2-1.3); BLOOD UREA NITROGEN 10 mg/dL (7-21); CALCIUM 8.2 mg/dL (8.4-10.5); CARBON DIOXIDE 34 mmol/L (21-33); CHLORIDE 97 mmol/L (98-107); GFR AFRICAN-AMERICAN > 60; GLUCOSE,RANDOM 94 mg/dL (70-110); POTASSIUM 3.7 mmol/L (3.6-5.0); SODIUM 138 mmol/L (132-148); TOTAL PROTEIN 6.5 g/dL (5.8-8.3)
[2017-05-13 06:53] LABS: BAND 3 % (0-2); EOSINOPHIL 2 % (0.0-3.0); NEUTROPHIL 65 % (50.0-70.0); PLATELET ESTIMATE LOW (NORMAL)
--- NOTE | 2017-05-13 07:25 | CP.PCM.PN ---
<Elsie Alejandro - Last Filed: 05/13/17 15:34> Subjective - Date & Time of Evaluation Date of Evaluation: 05/13/17 Time of Evaluation: 08:10 - Subjective Subjective: Progress note for Dr Destiny nichole. Patient still c/o abdominal pain, especially when he tries to lie flat. Denies fever, chills, n/v/d. Objective - Vital Signs/Intake and Output Vital Signs (last 24 hours): Temp Pulse Resp BP Pulse Ox 97.6 F 99 H 18 94/62 L 99 05/12/17 16:26 05/12/17 16:26 05/12/17 16:26 05/12/17 16:26 05/12/17 16:26 Intake and Output: 05/13/17 05/13/17 06:59 18:59 Intake Total 420 240 Output Total 300 475 Balance 120 -235 - Medications Medications: Current Medications Digoxin (Lanoxin) 0.125 mg PO 1400 [facility] Last Admin: 05/12/17 13:35 Dose: 0.125 mg Meropenem 1g/NS 100mL IVPB (Meropenem 1g/Ns 100ml Ivpb) 1 gm in 100 mls @ 100 mls/hr IVPB Q8 LUZ PRN Reason: Protocol Stop: 05/19/17 14:31 Last Admin: 05/13/17 05:28 Dose: 100 mls/hr Vancomycin HCl (Vancomycin 1gm) 1 gm in 250 mls @ 167 mls/hr IVPB Q12H LUZ PRN Reason: Protocol Last Admin: 05/13/17 02:03 Dose: 167 mls/hr Morphine Sulfate (Morphine) 4 mg IVP Q4H PRN PRN Reason: Pain, moderate (4-7) Last Admin: 05/13/17 06:15 Dose: 4 mg Pantoprazole Sodium (Protonix Ec Tab) 20 mg PO 0600 [facility] Last Admin: 05/13/17 06:22 Dose: 20 mg Ursodiol (Actigall) 300 mg PO BID [facility] Last Admin: 05/12/17 18:18 Dose: 300 mg - Labs Labs: 05/13/17 05:20 05/13/17 05:20 PT 13.3 Seconds (9.9-11.8) H 05/12/17 00:56 INR 1.23 (0.93-1.08) H 05/12/17 00:56 APTT 29.9 Seconds (23.7-30.8) 05/12/17 00:56 - Constitutional Appears: No Acute Distress, Chronically Ill - Head Exam Head Exam: ATRAUMATIC, NORMAL INSPECTION, NORMOCEPHALIC - Eye Exam Eye Exam: EOMI, Normal appearance, PERRL. absent: Scleral icterus Pupil Exam: NORMAL ACCOMODATION - ENT Exam ENT Exam: Mucous Membranes Moist, Normal Exam - Neck Exam Neck Exam: Normal Inspection - Respiratory Exam Respiratory Exam: Clear to Ausculation Bilateral, NORMAL BREATHING PATTERN. absent: Rales, Rhonchi, Wheezes, Respiratory Distress, Stridor - Cardiovascular Exam Cardiovascular Exam: Irregular Rhythm, +S1, +S2. absent: Gallop, JVD, Rubs, Murmur - GI/Abdominal Exam GI & Abdominal Exam: Soft, Normal Bowel Sounds. absent: Distended, Firm, Guarding, Rigid, Tenderness Additional comments: ostomy bag in place, making stool. - Extremities Exam Extremities Exam: Normal Inspection. absent: Pedal Edema - Back Exam Back Exam: tenderness (~2 cm wound, with purulent drainage in the mid thorax, with surrouding erythema. ) - Neurological Exam Neurological Exam: Alert, Awake, Oriented x3 Additional comments: Able to move his upper and lower extremities grossly. - Psychiatric Exam Psychiatric exam: Normal Affect, Normal Mood - Skin Skin Exam: Dry, Normal Color, Warm Additional comments: Wound in the back, as described above. Assessment and Plan - Assessment and Plan (Free Text) Assessment: 1) Mid thoracic region abscess and cellulites. 2) Worsening pancytopenia ANC of 506 3) Waldenstrom's macroglobulinemia (on chemo), 4) Chronic Afib ( not on anticoag), 5) Diverticulitis s/p Hartmans' procedure with colostomy, 6) Chronic hypotension, 7) CAD w/ h/o right sided heart failure 8) Acute on chronic anemia s/p transfusions. 9) Coagulopathy, mainly PT/INR/plt dysfunction 10) h/o choledocholithaisis s/p ERCP in the past. Plan: Patient remains afebrile. BCX no growth after 24 hrs, pemding. Patient is unable to get MRI due to back pain. Antibiotics changed to merrem as per ID. Pending surgery recommendations in terms of I&D of the mid back abscess. PLT count is 38 today, however no signs of bleeding. s/p 2 units of prbc with hgb of 7.3, will transfuse 1 more unit of prbc. Pending heme/onc consult. Morphine dose increased due to worsening of back pain. Will continue digoxin for afib, not on anticoagulation due to severe pancytopenia and coagulopathy. Will continue with ursodial for choledocholithaisis. Protonix for gi prophylaxis. SCDs for DVT prophylaxis. Patient seen, examined, and case discussed with Dr Dixon. <Waqas Dixon S - Last Filed: 05/13/17 19:43> Objective - Vital Signs/Intake and Output Vital Signs (last 24 hours): Temp Pulse Resp BP Pulse Ox 98.7 F 79 18 96/61 L 99 05/13/17 16:04 05/13/17 16:04 05/13/17 16:04 05/13/17 16:04 05/13/17 16:04 Intake and Output: 05/13/17 05/14/17 18:59 06:59 Intake Total 240 Output Total 475 Balance -235 - Medications Medications: Current Medications Clonazepam (Klonopin) 0.5 mg PO Q6H PRN PRN Reason: Anxiety Digoxin (Lanoxin) 0.125 mg PO 1400 LUZ Last Admin: 05/13/17 13:16 Dose: 0.125 mg Meropenem 1g/NS 100mL IVPB (Meropenem 1g/Ns 100ml Ivpb) 1 gm in 100 mls @ 100 mls/hr IVPB Q8 LUZ PRN Reason: Protocol Stop: 05/19/17 14:31 Last Admin: 05/13/17 13:16 Dose: 100 mls/hr Vancomycin HCl (Vancomycin 1gm) 1 gm in 250 mls @ 167 mls/hr IVPB Q12H LUZ PRN Reason: Protocol Last Admin: 05/13/17 14:23 Dose: 167 mls/hr Morphine Sulfate (Morphine) 5 mg IV Q4H PRN PRN Reason: Pain, moderate (4-7) Last Admin: 05/13/17 13:17 Dose: 5 mg Pantoprazole Sodium (Protonix Ec Tab) 20 mg PO 0600 LUZ Last Admin: 05/13/17 06:22 Dose: 20 mg Ursodiol (Actigall) 300 mg PO BID LUZ Last Admin: 05/13/17 17:00 Dose: 300 mg - Labs Labs: 05/13/17 05:20 05/13/17 05:20 PT 13.3 Seconds (9.9-11.8) H 05/12/17 00:56 INR 1.23 (0.93-1.08) H 05/12/17 00:56 APTT 29.9 Seconds (23.7-30.8) 05/12/17 00:56 Assessment and Plan - Assessment and Plan (Free Text) Plan: Pt seen and examined. Agree with above not of resident. Labs reviewed. Will need 1unit PRBC transfusion. Spoke to Dr Mas about I and D. Low plt. On Meropenum for abscess.
--- NOTE | 2017-05-13 07:40 | RAD ---
HISTORY: fever COMPARISON: 01/09/2017 FINDINGS: LUNGS: Right basilar subsegmental atelectasis. Left basilar opacity may be due to infiltrate or pleural effusion. No right pleural effusion. No pneumothorax. Small vaguely ovoid opacity overlying posterior right 7th rib. This represents interval change from prior examination. Followup to exclude developing neoplasm. PLEURA: Blunting of left costophrenic angle suggests pleural effusion. No evidence of right pleural effusion.o CARDIOVASCULAR: Normal. OSSEOUS STRUCTURES: No significant abnormalities. VISUALIZED UPPER ABDOMEN: Normal. OTHER FINDINGS: None. IMPRESSION: Left basilar opacity. Probable pleural effusion. Possible superimposed infiltrate. Right basilar subsegmental atelectasis. Vaguely ovoid opacity overlying right 7th posterior rib. Followup to exclude developing neoplasm.
[2017-05-13] MEDS ORDERED: Morphine 4 mg/ml ISec IVP PRN (09:55)
--- NOTE | 2017-05-13 11:32 | CP.PCM.PN ---
Subjective - Date & Time of Evaluation Date of Evaluation: 05/13/17 Time of Evaluation: 09:20 - Subjective Subjective: Still with back pain, apparently back area is starting to drain, no fevers overnight. Objective - Vital Signs/Intake and Output Vital Signs (last 24 hours): Temp Pulse Resp BP Pulse Ox 97.6 F 99 H 18 94/62 L 99 05/12/17 16:26 05/12/17 16:26 05/12/17 16:26 05/12/17 16:26 05/12/17 16:26 Intake and Output: 05/12/17 05/13/17 18:59 06:59 Intake Total 1464 420 Output Total 350 300 Balance 1114 120 - Medications Medications: Current Medications Digoxin (Lanoxin) 0.125 mg PO 1400 [facility] Last Admin: 05/12/17 13:35 Dose: 0.125 mg Meropenem 1g/NS 100mL IVPB (Meropenem 1g/Ns 100ml Ivpb) 1 gm in 100 mls @ 100 mls/hr IVPB Q8 LUZ PRN Reason: Protocol Stop: 05/19/17 14:31 Last Admin: 05/13/17 05:28 Dose: 100 mls/hr Vancomycin HCl (Vancomycin 1gm) 1 gm in 250 mls @ 167 mls/hr IVPB Q12H LUZ PRN Reason: Protocol Last Admin: 05/13/17 02:03 Dose: 167 mls/hr Morphine Sulfate (Morphine) 4 mg IVP Q4H PRN PRN Reason: Pain, moderate (4-7) Last Admin: 05/13/17 06:15 Dose: 4 mg Pantoprazole Sodium (Protonix Ec Tab) 20 mg PO 0600 [facility] Last Admin: 05/13/17 06:22 Dose: 20 mg Ursodiol (Actigall) 300 mg PO BID [facility] Last Admin: 05/12/17 18:18 Dose: 300 mg - Labs Labs: 05/13/17 05:20 PT 13.3 Seconds (9.9-11.8) H 05/12/17 00:56 INR 1.23 (0.93-1.08) H 05/12/17 00:56 APTT 29.9 Seconds (23.7-30.8) 05/12/17 00:56 - Constitutional Appears: Non-toxic, No Acute Distress - Head Exam Head Exam: NORMAL INSPECTION - Neck Exam Neck Exam: absent: Meningismus - Respiratory Exam Respiratory Exam: Decreased Breath Sounds - Cardiovascular Exam Cardiovascular Exam: +S1, +S2 - GI/Abdominal Exam GI & Abdominal Exam: Soft. absent: Tenderness Assessment and Plan - Assessment and Plan (Free Text) Plan: assessment Consider sepsis due to thoracic area soft tissue infection (around the posterior spinous processes); no evidence of bony involvement and no fluid collection at the moment but an MRI would be the better imaging modality to rule out such processes Acute neutropenia without fever history of C. diff associated diarrhea, slowly improving Gram positive ross in one bottle, R/O contamination Leukopenia without fever, probably related to his Waldenstrom's macroglobulinemia history of intra-abdominal infection/colitis history of Acute sigmoid diverticulitis with abscess formation S/P resection and colostomy placement Waldenstrom's Macroglobinemia currently on chemotherapy atrial fibrillation on anticoagulation Plan Given the patient's history, we will continue IV Vancomycin and Merrem pending blood cx and wound cx (back area is starting to have drainage) Reviewed Surgery recommendations and they will observe the patient and recommend conservative management for now would suggest MRI of thoracic spine when feasible will continue to monitor clinically
[2017-05-13] MEDS ORDERED: Bupivacaine-Epi 0.25%-1:200,000 PF Inj IJ ONE (13:01)
[2017-05-13] MEDS: Digoxin 125 mcg (0.125 mg) Tab PO SCH (13:16)
[2017-05-13] MEDS ORDERED: HYDROmorphone 1 mg/ml ISec IVP STA ×2 (15:43→16:19)
--- NOTE | 2017-05-13 16:05 | CP.PCM.CON ---
History of Present Illness - History of Present Illness History of Present Illness: 51 yo man with Waldenstroms macroglobulinemia, first diagnosed 2012, started on chemo with fair response to Velcade and Zometa, treatment complicated by diverticulitis with perforation, requiring colostomy, currently on PO chlorambucil prescribed by oncologist at [facility], with resultant pancytopenia. He has no fever, chills, night sweats. C/O generalized weakness, back pain, mostly in bed, poor appetite with weight loss. Past Patient History - Infectious Disease Hx of Infectious Diseases: None - Past Social History Smoking Status: Never Smoked - CARDIAC Hx Cardiac Disorders: Yes Hx Atrial Fibrillation: Yes Hx Congestive Heart Failure: Yes Hx Hypertension: Yes - PULMONARY Hx Chronic Obstructive Pulmonary Disease (COPD): No Other/Comment: on home O2 for low sat - NEUROLOGICAL Hx Transient Ischemic Attacks (TIA): No - HEENT Hx HEENT Problems: No Hx Blind: No Hx Cataracts: No Hx Deafness: No Hx Difficulty Chewing: No Hx Epistaxis: No Hx Glaucoma: No Hx Macular Degeneration: No - RENAL Hx Renal Failure: No - ENDOCRINE/METABOLIC Hx Diabetes Mellitus Type 1: No Hx Diabetes Mellitus Type 2: No - HEMATOLOGICAL/ONCOLOGICAL Hx Blood Transfusions: Yes Hx Blood Transfusion Reaction: No Hx Cancer: Yes (Blood Cancer as per patient) Hx Chemotherapy: Yes - INTEGUMENTARY Hx Dermatological Problems: No Hx Basil Cell: No Hx Eczema: No Hx Melanoma: No Hx Psoriasis: No Hx Squamous Cell: No - MUSCULOSKELETAL/RHEUMATOLOGICAL Hx Back Pain: Yes Hx Falls: Yes - GASTROINTESTINAL Hx Gastrointestinal Disorders: Yes Hx Bowel Surgery: Yes Hx Colostomy: Yes (LUQ) Hx Crohn's Disease: No Hx Diverticulitis: Yes Hx Gall Bladder Disease: No Hx Gastroesophageal Reflux: No Hx Ileostomy: No Hx Liver Failure: No Hx Pancreatitis: No HX Swallowing Problems: No - GENITOURINARY/GYNECOLOGICAL Hx Genitourinary Disorders: No Hx Hematuria: No Hx Incontinence: No Hx Prostate Problems: No Hx Sexually Transmitted Disorders: No Hx Urinary Tract Infection: Yes - PSYCHIATRIC Hx Emotional Abuse: No Hx Physical Abuse: No Hx Substance Use: No - SURGICAL HISTORY Other/Comment: Colostomy - ANESTHESIA Hx Anesthesia: Yes Hx Anesthesia Reactions: No Hx Malignant Hyperthermia: No Meds Allergies/Adverse Reactions: Allergies Allergy/AdvReac Type Severity Reaction Status Date / Time No Known Allergies Allergy Verified 07/09/16 19:46 - Medications Medications: Current Medications Digoxin (Lanoxin) 0.125 mg PO 1400 [facility] Last Admin: 05/13/17 13:16 Dose: 0.125 mg Meropenem 1g/NS 100mL IVPB (Meropenem 1g/Ns 100ml Ivpb) 1 gm in 100 mls @ 100 mls/hr IVPB Q8 [facility] PRN Reason: Protocol Stop: 05/19/17 14:31 Last Admin: 05/13/17 13:16 Dose: 100 mls/hr Vancomycin HCl (Vancomycin 1gm) 1 gm in 250 mls @ 167 mls/hr IVPB Q12H [facility] PRN Reason: Protocol Last Admin: 05/13/17 14:23 Dose: 167 mls/hr Morphine Sulfate (Morphine) 5 mg IV Q4H PRN PRN Reason: Pain, moderate (4-7) Last Admin: 05/13/17 13:17 Dose: 5 mg Pantoprazole Sodium (Protonix Ec Tab) 20 mg PO 0600 [facility] Last Admin: 05/13/17 06:22 Dose: 20 mg Ursodiol (Actigall) 300 mg PO BID [facility] Last Admin: 05/13/17 09:26 Dose: 300 mg Results - Vital Signs Recent Vital Signs: Last Vital Signs Temp 97.8 F 05/13/17 08:15 Pulse 105 H 05/13/17 08:15 Resp 22 05/13/17 08:15 BP 97/69 L 05/13/17 08:15 Pulse Ox 99 05/13/17 08:15 - Labs Result Diagrams: 05/13/17 05:20 05/13/17 05:20 Labs: Laboratory Results - last 24 hr 05/12/17 05/13/17 05/13/17 04:00 05:20 05:20 WBC 0.7 L* RBC 2.21 L Hgb 7.3 L Hct 22.9 L MCV 103.6 MCH 33.0 MCHC 31.9 RDW 18.0 H Plt Count 38 L* MPV 9.1 Gran % 69.3 H Lymph % (Auto) 16.9 L Newberry % (Auto) 12.3 H Eos % (Auto) 1.5 Baso % (Auto) 0.0 Gran # 0.45 L Lymph # 0.1 L Newberry # 0.1 Eos # 0.0 Baso # 0.00 Neutrophils % (Manual) 65 Band Neutrophils % 3 H Lymphocytes % (Manual) 17 L Monocytes % (Manual) 13 H Eosinophils % (Manual) 2 Platelet Evaluation Low Sodium 138 Potassium 3.7 Chloride 97 L Carbon Dioxide 34 H Anion Gap 11 BUN 10 Creatinine 0.5 Est GFR ( Amer) > 60 Est GFR (Non-Af Amer) > 60 Random Glucose 94 Calcium 8.2 L Total Bilirubin 1.7 H AST 17 ALT 24 Alkaline Phosphatase 55 Total Protein 6.5 Albumin 3.0 Globulin 3.5 Albumin/Globulin Ratio 0.9 L Blood Type A NEGATIVE Antibody Screen Negative Crossmatch See Detail BBK History Checked Patient has bt Assessment & Plan (1) Waldenstroms macroglobulinemia Assessment and Plan: 51 yo old with Waldenstrom's macroglobulinemia, on Po chlorambucil for refractory disease. Severe pancytopenia with associted infection, s/p 2 units of PRBCs. Will add short course of Neupogen till WBC count over 5K. Above discussed with Sherry at [facility] Status: Acute
[2017-05-14] MEDS: Vancomycin 1gm in NS 250ml 1 GM/250 ML BAG IVPB SCH ×2 (02:09→14:22)
--- NOTE | 2017-05-14 02:28 | CON ---
HISTORY OF PRESENT ILLNESS: The patient is a 51-year-old white male. I reviewed the medical record and spoke with staff. The patient was admitted 2 days ago for a soft tissue infection. He was having severe pain in his mid back. The soft tissue area infection was around the posterior spinous processes. The patient has a history of recurrent major depression and recurrent severe anxiety. He is being treated with chemotherapy for Waldenstrom's macroglobulinemia. The patient at home has been taking p.r.n. clonazepam 0.5 mg b.i.d. along with Percocet 10/325. PAST MEDICAL HISTORY: He has recurrent major depression. He has a history of pancytopenia. He has a history of intraabdominal infection and colitis. He has had a history of acute sigmoid diverticulitis with abscess formation and status post resection and colostomy placement. He has a history of distant Waldenstrom's macroglobulinemia for which he is on chemotherapy and atrial fibrillation, on anticoagulation. PERSONAL HISTORY: He lives with his and his son and has midwives. The patient has been sick for several years, although has had psychiatric problems prior to his illness. CURRENT LABORATORY DATA: His white count is 700, his RBC count is 2.21, hemoglobin is 7.3, hematocrit 22.9 and his platelet count is 38,000. His absolute neutrophil count is 450. The patient's metabolic profile reveals a sodium of 138, potassium 3.7, chloride , CO2 is 34, anion gap of 11, BUN 10, creatinine 0.5, estimated GFR greater than 60, random glucose is 94, calcium is 8.2 and total bilirubin 1.7. AST, ALT, alk phos, total protein and albumin all normal. The patient's urinalysis was dark yellow with clear, with small amount of urinary bilirubin, only trace bacteria. The patient had blood cultures x2 which had no growth after 24 hours. I reviewed curriculum consultant's report including infectious disease consult and supervisor coffee consultation. First, he was given 2 units of packed red cells. At last, he has received Neupogen to WBC count of 5000. The patient has been receiving chemotherapy, [place], [place]. The patient's other radiological reports: He has thoracic spine CT. His findings include multiple compression fractures of lower thoracic spine, unchanged since 09/19/2016. The patient had soft tissue infiltration of posterior spinous soft tissues from level T8 to T12 without discrete fluid collection, also has moderate bilateral pleural effusions with adjacent compressive atelectasis. The patient has kyphosis and degenerative disc disease. The patient had an electrocardiogram which revealed atrial fibrillation with rapid ventricular rate with premature ventricle aberrantly abducted complexes at rate of 103 and QTc interval 416. MEDICATIONS: The patient's current medications include Actical, Lanoxin, meropenem IV, vancomycin IVPB, Protonix p.r.n. and morphine 5 mg IV q. 4 h. He is also receiving Granix 480 mcg q. daily and he has Marcaine injection ordered. REVIEW OF SYSTEMS: Complains namely of back pain and weakness. Other 12-point review noncontributory. PHYSICAL EXAMINATION VITAL SIGNS: His blood pressure is 96/61, pulse 79, respirations 18 per minute and afebrile. PSYCHIATRIC: Mental status. He is awake, alert, somewhat cachectic and has depressed face. He has psychomotor retardation, recognizes me and oriented x3. Recent memory appears intact. Speech is slow, but fluent. His thought process is slow, but coherent and lucid. The patient is denying anxiety at this time. Nervousness at this time. Denies any suicidal ideation or psychotic symptomatology. Discussed the patient needs better control of breakthrough pain. IMPRESSION: The patient has a history of recurrent anxiety and recurrent major depression. He has a soft tissue infection in thoracic area of the back. He has pancytopenia with extremely low granulocyte count. He has Waldenstrom's macroglobulinemia. He is receiving chemotherapy. He has atrial fibrillation with rapid ventricular rate. He is status post colectomy and colostomy. He has chronic obstructive pulmonary disease; multiple compression fractures, T8 to T12; severe, uncontrollable back pain at times. The patient has gait disturbance. PLAN: At this time, we will only order p.r.n. clonazepam for anxiety and we will monitor his mental status. We also discussed better control of breakthrough pain management with his treating physicians. Alton Guthrie MD ANIRUDH
[2017-05-14] MEDS: Pantoprazole 20 mg EC Tab PO SCH (06:04)
[2017-05-14] MEDS: Meropenem 1g/NS 100mL IVPB 1 GM/100 ML PIGGYBACK IVPB SCH ×3 (06:31→21:18)
[2017-05-14 06:39] LABS: EOS % 0.6 % (1.5-5.0); GRAN # 1.45 (1.4-6.5); GRAN % 86.8 % (50.0-68.0); HEMATOCRIT 24.1 % (42.0-52.0); LYMPH # 0.1 (1.2-3.4); LYMPH % 6.6 % (22.0-35.0); MEAN CELL VOLUME 104.8 fl (80.0-105.0); MEAN CORPUSCULAR HEMOGLOBIN 32.6 pg (25.0-35.0); MEAN CORPUSCULAR HGB CONC 31.1 g/dl (31.0-37.0); MONO # 0.1 (0.1-0.6); RED CELL DISTRIBUTION WIDTH 17.9 % (11.5-14.5)
[2017-05-14 06:54] LABS: ALB/GLOB RATIO 0.9 (1.1-1.8); ALKALINE PHOSPHATASE 54 U/L (38-133); ALT/SGPT 22 U/L (7-56); AST/SGOT 15 U/L (15-59); BILIRUBIN,TOTAL 1.6 mg/dL (0.2-1.3); BLOOD UREA NITROGEN 11 mg/dL (7-21); CALCIUM 8.3 mg/dL (8.4-10.5); CARBON DIOXIDE 34 mmol/L (21-33); CHLORIDE 97 mmol/L (98-107); GFR AFRICAN-AMERICAN > 60; GLUCOSE,RANDOM 107 mg/dL (70-110); SODIUM 138 mmol/L (132-148); TOTAL PROTEIN 6.5 g/dL (5.8-8.3)
[2017-05-14 07:37] LABS: WHITE BLOOD COUNT 1.7 10^3/ul (4.5-11.0)
--- NOTE | 2017-05-14 07:51 | CP.PCM.PN ---
Subjective - Date & Time of Evaluation Date of Evaluation: 05/14/17 Time of Evaluation: 07:15 - Subjective Subjective: Pt S&E at bedside. Pt doing well with no new complaints. Pt says he is feeling some pressure in his back where the I&D was done yesterday. Pt denies F/C, N/V/D , CP, SOB. Objective - Vital Signs/Intake and Output Vital Signs (last 24 hours): Temp Pulse Resp BP Pulse Ox 98.7 F 79 18 96/61 L 99 05/13/17 16:04 05/13/17 16:04 05/13/17 16:04 05/13/17 16:04 05/13/17 16:04 Intake and Output: 05/14/17 05/14/17 06:59 18:59 Intake Total 1560 Output Total 1600 Balance -40 - Medications Medications: Current Medications Clonazepam (Klonopin) 0.5 mg PO Q6H PRN PRN Reason: Anxiety Digoxin (Lanoxin) 0.125 mg PO 1400 [facility] Last Admin: 05/13/17 13:16 Dose: 0.125 mg Meropenem 1g/NS 100mL IVPB (Meropenem 1g/Ns 100ml Ivpb) 1 gm in 100 mls @ 100 mls/hr IVPB Q8 [facility] PRN Reason: Protocol Stop: 05/19/17 14:31 Last Admin: 05/14/17 06:31 Dose: 100 mls/hr Vancomycin HCl (Vancomycin 1gm) 1 gm in 250 mls @ 167 mls/hr IVPB Q12H [facility] PRN Reason: Protocol Last Admin: 05/14/17 02:09 Dose: 167 mls/hr Morphine Sulfate (Morphine) 5 mg IV Q4H PRN PRN Reason: Pain, moderate (4-7) Last Admin: 05/14/17 04:00 Dose: 5 mg Pantoprazole Sodium (Protonix Ec Tab) 20 mg PO 0600 [facility] Last Admin: 05/14/17 06:04 Dose: 20 mg Ursodiol (Actigall) 300 mg PO BID [facility] Last Admin: 05/13/17 17:00 Dose: 300 mg - Labs Labs: 05/14/17 05:33 05/14/17 05:33 PT 13.3 Seconds (9.9-11.8) H 05/12/17 00:56 INR 1.23 (0.93-1.08) H 05/12/17 00:56 APTT 29.9 Seconds (23.7-30.8) 05/12/17 00:56 - Constitutional Appears: Non-toxic, No Acute Distress - Head Exam Head Exam: NORMAL INSPECTION - Eye Exam Eye Exam: EOMI - ENT Exam ENT Exam: Mucous Membranes Moist - Respiratory Exam Respiratory Exam: NORMAL BREATHING PATTERN. absent: Accessory Muscle Use, Respiratory Distress - Cardiovascular Exam Cardiovascular Exam: Tachycardia. absent: Bradycardia - Back Exam Additional comments: packing removed from I&D incision at midline near mid/lower thoracic spine with minimal serous fluid drainage. No purulent drainage, erythema, or swelling noted. Nonfluctuant. - Neurological Exam Neurological Exam: Alert, Awake, Oriented x3 - Psychiatric Exam Psychiatric exam: Normal Affect, Normal Mood - Skin Skin Exam: Dry, Warm Assessment and Plan - Assessment and Plan (Free Text) Assessment: 51 y/o male with multiple comorbidities s/p bedside I&D of back abscess POD#1. Plan: -abscess resolving -no surgical intervention needed at this time -gram stain negative -f/u on pending wound culture -packing removed and no longer needed -pressure dressing applied -Cont abx per ID -Warm compresses q2h d/w Dr. Chace Rendon DO PGY1
--- NOTE | 2017-05-14 08:37 | CP.PCM.PN ---
<Elsie Alejandro - Last Filed: 05/14/17 12:33> Subjective - Date & Time of Evaluation Date of Evaluation: 05/14/17 Time of Evaluation: 07:50 - Subjective Subjective: Progress ntoe for Dr Dixon service. Patient with no acute events overnight. Patient had I&D of the back abscess yesterday. Patient was also seen by heme/onc, was given a dose of neupogen. Patient remains afebrile. Admits to persistent back pain. Denies cp, sob, n/v/d , denies cp or sob. Objective - Vital Signs/Intake and Output Vital Signs (last 24 hours): Temp Pulse Resp BP Pulse Ox 99.7 F H 108 H 20 103/68 99 05/14/17 07:49 05/14/17 07:49 05/14/17 07:49 05/14/17 07:49 05/14/17 07:49 Intake and Output: 05/14/17 05/14/17 06:59 18:59 Intake Total 1560 Output Total 1600 Balance -40 - Medications Medications: Current Medications Clonazepam (Klonopin) 0.5 mg PO Q6H PRN PRN Reason: Anxiety Digoxin (Lanoxin) 0.125 mg PO 1400 [facility] Last Admin: 05/13/17 13:16 Dose: 0.125 mg Meropenem 1g/NS 100mL IVPB (Meropenem 1g/Ns 100ml Ivpb) 1 gm in 100 mls @ 100 mls/hr IVPB Q8 [facility] PRN Reason: Protocol Stop: 05/19/17 14:31 Last Admin: 05/14/17 06:31 Dose: 100 mls/hr Vancomycin HCl (Vancomycin 1gm) 1 gm in 250 mls @ 167 mls/hr IVPB Q12H [facility] PRN Reason: Protocol Last Admin: 05/14/17 02:09 Dose: 167 mls/hr Morphine Sulfate (Morphine) 5 mg IV Q4H PRN PRN Reason: Pain, moderate (4-7) Last Admin: 05/14/17 04:00 Dose: 5 mg Pantoprazole Sodium (Protonix Ec Tab) 20 mg PO 0600 [facility] Last Admin: 05/14/17 06:04 Dose: 20 mg Ursodiol (Actigall) 300 mg PO BID [facility] Last Admin: 05/13/17 17:00 Dose: 300 mg - Labs Labs: 05/14/17 05:33 05/14/17 05:33 PT 13.3 Seconds (9.9-11.8) H 05/12/17 00:56 INR 1.23 (0.93-1.08) H 05/12/17 00:56 APTT 29.9 Seconds (23.7-30.8) 05/12/17 00:56 - Constitutional Appears: No Acute Distress, Older Than Stated Age, Chronically Ill - Head Exam Head Exam: ATRAUMATIC, NORMAL INSPECTION, NORMOCEPHALIC - Eye Exam Eye Exam: EOMI, Normal appearance, PERRL. absent: Scleral icterus (pale sclera. ) - ENT Exam ENT Exam: Mucous Membranes Moist, Normal Exam - Neck Exam Neck Exam: Full ROM, Normal Inspection - Respiratory Exam Respiratory Exam: Clear to Ausculation Bilateral, NORMAL BREATHING PATTERN. absent: Prolonged Expiratory Phase, Rales, Rhonchi, Wheezes, Respiratory Distress, Stridor - Cardiovascular Exam Cardiovascular Exam: Irregular Rhythm, RRR, +S1, +S2, Murmur. absent: Gallop, JVD, Rubs - GI/Abdominal Exam GI & Abdominal Exam: Soft, Normal Bowel Sounds. absent: Distended, Firm, Guarding, Rigid, Tenderness Additional comments: Ostomy bag in place, with stool. - Extremities Exam Extremities Exam: absent: Pedal Edema Additional comments: + skin thickening, and dryness. - Back Exam Back Exam: tenderness (mid thorax with a clean dressing over the wound. ) - Neurological Exam Neurological Exam: Alert, Awake, Oriented x3 Additional comments: + Gross movement of the lower extremities. - Psychiatric Exam Psychiatric exam: Normal Affect, Normal Mood - Skin Skin Exam: Abrasion, Dry, Warm Additional comments: Clean dressing over the mid thoracic wound, with surrounding erythema. Assessment and Plan - Assessment and Plan (Free Text) Assessment: 1) Abscess with 2 cm wound in the mid thoracic region and surrounding cellulites. 2) Pancytopenia s/p neupogen, ANC of 1476 3) Waldenstrom's macroglobulinemia (on chemo), 4) Chronic Afib ( not on anticoag), 5) Diverticulitis s/p Hartmans' procedure with colostomy, 6) Chronic hypotension, 7) CAD w/ h/o right sided heart failure 8) Acute on chronic anemia s/p 3 units if prbc transfusions. 9) Coagulopathy, mainly PT/INR/plt dysfunction 10) h/o choledocholithaisis s/p ERCP in the past. Plan: S/p ID of the mid back abscess, pending wound culture. On merrem and vanco as per ID. bcx with so far no growth. Continue wound care as per surgery. s/p a dose of neupogen yesterday, with improved ANC. Heme/on following S/P 3 units of prbc, with inappropriate response, hgb of 7.5. Plt function continue to worsen. Patient is mostly bed bound, not doing much, not cooperative with turning/ repositioning. Will continue morphine for pain. On digoxin for chronic atrial fibrillation. Will continue with ursodial for choledocholithaisis. Protonix for gi prophylaxis and SCDs for DVT prophylaxis. Patient seen, examined, and case discussed with Dr Dixon. <Waqas Dixon S - Last Filed: 05/14/17 21:01> Objective - Vital Signs/Intake and Output Vital Signs (last 24 hours): Temp Pulse Resp BP Pulse Ox 98.5 F 96 H 20 97/68 L 100 05/14/17 16:19 05/14/17 16:19 05/14/17 16:19 05/14/17 16:19 05/14/17 16:19 - Medications Medications: Current Medications Clonazepam (Klonopin) 0.5 mg PO Q6H PRN PRN Reason: Anxiety Digoxin (Lanoxin) 0.125 mg PO 1400 [facility] Last Admin: 05/14/17 14:20 Dose: 0.125 mg Meropenem 1g/NS 100mL IVPB (Meropenem 1g/Ns 100ml Ivpb) 1 gm in 100 mls @ 100 mls/hr IVPB Q8 [facility] PRN Reason: Protocol Stop: 05/19/17 14:31 Last Admin: 05/14/17 14:21 Dose: 100 mls/hr Vancomycin HCl (Vancomycin 1gm) 1 gm in 250 mls @ 167 mls/hr IVPB Q12H [facility] PRN Reason: Protocol Last Admin: 05/14/17 14:22 Dose: 167 mls/hr Morphine Sulfate (Morphine) 5 mg IV Q4H PRN PRN Reason: Pain, moderate (4-7) Last Admin: 05/14/17 20:12 Dose: 5 mg Pantoprazole Sodium (Protonix Ec Tab) 20 mg PO 0600 [facility] Last Admin: 05/14/17 06:04 Dose: 20 mg Ursodiol (Actigall) 300 mg PO BID [facility] Last Admin: 05/14/17 17:15 Dose: 300 mg - Labs Labs: 05/14/17 05:33 05/14/17 05:33 PT 13.3 Seconds (9.9-11.8) H 05/12/17 00:56 INR 1.23 (0.93-1.08) H 05/12/17 00:56 APTT 29.9 Seconds (23.7-30.8) 05/12/17 00:56 Assessment and Plan - Assessment and Plan (Free Text) Plan: Pt seen and examined. Resident note reviewed and I agree with it. Wound Cx pending. Hb stable. No need for transfusion. Once Cx finalized will D/C home.
--- NOTE | 2017-05-14 09:14 | CP.PCM.PN ---
Subjective - Date & Time of Evaluation Date of Evaluation: 05/13/17 Time of Evaluation: 16:00 - Subjective Subjective: Procedure Note: Dr. Mas Procedure: Back Abscess I & D Physicians: Dr. Mas Description: Risks and benefits of procedure were discussed with patient. Pt agreed to procedure. Consent obtained and on chart. Area identified, prepped, and draped in a sterile fashion. 5cc bupivicaine administered to surrounding area. 10 blade was used to create a 1cm incision over the area of fluctuance. A Genesis clamp was then used to explore the cavity and promote drainage. A small amount (<5cc) of sanguineous fluid and blood was expressed from the cavity. Culture of the cavity was sent to the lab for analysis. The wound was packed with 5mm iodoform ribbon packing and covered with a sterile pressure dressing. Complications: none EBL: <5cc Disposition: pt alert, oriented, and resting comfortable in bed. Breathing nonlabored. Nonbradycardic, nontachycardic. Moving all limbs spontaneously. Dressing over back wound C/D/I. Objective - Vital Signs/Intake and Output Vital Signs (last 24 hours): Temp Pulse Resp BP Pulse Ox 99.7 F H 108 H 20 103/68 99 05/14/17 07:49 05/14/17 07:49 05/14/17 07:49 05/14/17 07:49 05/14/17 07:49 Intake and Output: 05/14/17 05/14/17 06:59 18:59 Intake Total 1560 Output Total 1600 Balance -40 - Medications Medications: Current Medications Clonazepam (Klonopin) 0.5 mg PO Q6H PRN PRN Reason: Anxiety Digoxin (Lanoxin) 0.125 mg PO 1400 [facility] Last Admin: 05/13/17 13:16 Dose: 0.125 mg Meropenem 1g/NS 100mL IVPB (Meropenem 1g/Ns 100ml Ivpb) 1 gm in 100 mls @ 100 mls/hr IVPB Q8 [facility] PRN Reason: Protocol Stop: 05/19/17 14:31 Last Admin: 05/14/17 06:31 Dose: 100 mls/hr Vancomycin HCl (Vancomycin 1gm) 1 gm in 250 mls @ 167 mls/hr IVPB Q12H [facility] PRN Reason: Protocol Last Admin: 05/14/17 02:09 Dose: 167 mls/hr Morphine Sulfate (Morphine) 5 mg IV Q4H PRN PRN Reason: Pain, moderate (4-7) Last Admin: 05/14/17 04:00 Dose: 5 mg Pantoprazole Sodium (Protonix Ec Tab) 20 mg PO 0600 [facility] Last Admin: 05/14/17 06:04 Dose: 20 mg Ursodiol (Actigall) 300 mg PO BID [facility] Last Admin: 05/13/17 17:00 Dose: 300 mg - Labs Labs: 05/14/17 05:33 05/14/17 05:33 PT 13.3 Seconds (9.9-11.8) H 05/12/17 00:56 INR 1.23 (0.93-1.08) H 05/12/17 00:56 APTT 29.9 Seconds (23.7-30.8) 05/12/17 00:56
[2017-05-14] MEDS: Digoxin 125 mcg (0.125 mg) Tab PO SCH (14:20)
--- NOTE | 2017-05-14 23:42 | PN ---
DATE: SUBJECTIVE: The patient is a 51-year-old white male, currently being treated for an abscess in the mid thoracic region. Patient is well known to me, he follows off and on for recurrent depression and anxiety psychiatrically. The patient has multiple medical problems including Waldenstrom macroglobulinemia, on chemotherapy, has pancytopenia, he has chronic atrial fibrillation, history of diverticulitis, chronic hypertension, coronary artery disease with right-sided heart failure. Currently, the patient's mental status reveals that he is awake, he is alert, he is oriented x3. He has depressed facies, some psychomotor retardation. He still seem somewhat despondent, at times restless. Patient also was restless at times at night. Denies suicidal ideation, paranoia, or hallucinations. CURRENT MEDICATIONS: Include Actical, p.r.n. Klonopin, Lanoxin, meropenem, p.r.n. morphine, Protonix, and vancomycin. CURRENT LABORATORY DATA: His white count is 1700, his hemoglobin of 7.5, hematocrit 24.1 and platelet count is 37,000. His absolute granulocyte count is 1450. The patient's metabolic profile; sodium 138, potassium 4.0, chloride 97, CO2 is 34, anion gap of 11, BUN 11, creatinine is 0.5, estimated GFR greater than 6, random glucose 107, calcium 8.3, total bilirubin 1.6 and albumin 3.0. AST, ALT, alk phos and total protein are all normal. REVIEW OF SYSTEMS: He has back pain in mid thoracic area and he feels weak. His legs are weak. Other 10-point review, noncontributory. PHYSICAL EXAMINATION: VITAL SIGNS: Blood pressure is 97/68, pulse 96, afebrile and respirations 20 per minute. IMPRESSION: Generalized anxiety, chronic depression. The patient has skin infection on his mid thoracic area of his back. He has Waldenstrom's macroglobulinemia. He has history of chronic atrial fibrillation. He is status post incision and drainage for an abscess on his back, he has pancytopenia, he has severe neutropenia, anemia, history of diverticulosis, chronic hypertension, coronary artery heart disease with right-sided heart failure, history of coagulopathy. PLAN: He has on order for clonazepam 0.5 mg q.6h. p.r.n. which I urge the patient to request at bedtime for more comfortable night. We will withhold serotonin reuptake inhibitors due to the fact that the patient has a basic tendency theoretically to pose magnification of bleeding. We will continue to monitor mental status. Alton Guthrie MD
[2017-05-15] MEDS: Vancomycin 1gm in NS 250ml 1 GM/250 ML BAG IVPB SCH ×2 (02:20→13:30)
[2017-05-15] MEDS: Pantoprazole 20 mg EC Tab PO SCH (06:29)
[2017-05-15] MEDS: Meropenem 1g/NS 100mL IVPB 1 GM/100 ML PIGGYBACK IVPB SCH ×3 (06:29→21:28)
--- NOTE | 2017-05-15 07:39 | PN ---
DATE: 05/14/2017 SUBJECTIVE: The patient is in bed, in no acute distress. He was seen earlier this morning in room 355, bed 2. PHYSICAL EXAMINATION: VITAL SIGNS: Temperature is 99, blood pressure is 100/60, and respiratory rate of 16. HEENT: Unremarkable. NECK: Supple. LUNGS: Decreased breath sounds. HEART: Normal S1 and S2. ABDOMEN: Soft. LABORATORY DATA: Examination reveals a white count of 1.7, hemoglobin of 7, and platelets of 37. Chemistry reveals a BUN of 11 and creatinine of 0.5. Urinalysis is noted. Microbiology reveals blood cultures are negative. ASSESSMENT AND PLAN: He is a 51-year-old male with sepsis to the thoracic area, soft tissue infection with no evidence of bony involvement and no fluid collection at the moment. The patient with history of herpes simplex virus colitis, history of Waldenstrom macroglobulinemia. We will continue the present course. Pending culture results. The case is discussed with Dr. Dixon. Anatoliy Luna MD
[2017-05-15 10:33] LABS: GRAN # 1.64 (1.4-6.5); GRAN % 90.6 % (50.0-68.0); LYMPH # 0.1 (1.2-3.4); LYMPH % 4.4 % (22.0-35.0); MEAN CELL VOLUME 106.7 fl (80.0-105.0); MEAN CORPUSCULAR HEMOGLOBIN 33.3 pg (25.0-35.0); MEAN CORPUSCULAR HGB CONC 31.3 g/dl (31.0-37.0); MEAN PLATELET VOLUME 9.9 fl (7.0-11.0); MONO # 0.1 (0.1-0.6); RED CELL DISTRIBUTION WIDTH 17.5 % (11.5-14.5)
[2017-05-15 10:42] LABS: WHITE BLOOD COUNT 1.8 10^3/ul (4.5-11.0)
[2017-05-15 10:46] LABS: ALB/GLOB RATIO 0.9 (1.1-1.8); ALKALINE PHOSPHATASE 55 U/L (38-133); ALT/SGPT 20 U/L (7-56); AST/SGOT 15 U/L (15-59); BILIRUBIN,TOTAL 1.9 mg/dL (0.2-1.3); BLOOD UREA NITROGEN 12 mg/dL (7-21); CALCIUM 8.5 mg/dL (8.4-10.5); CARBON DIOXIDE 32 mmol/L (21-33); CHLORIDE 98 mmol/L (98-107); GFR AFRICAN-AMERICAN > 60; GLUCOSE,RANDOM 118 mg/dL (70-110); POTASSIUM 3.8 mmol/L (3.6-5.0); SODIUM 139 mmol/L (132-148); TOTAL PROTEIN 6.6 g/dL (5.8-8.3)
[2017-05-15] MEDS: Digoxin 125 mcg (0.125 mg) Tab PO SCH (13:24)
--- NOTE | 2017-05-15 23:08 | PN ---
SUBJECTIVE: The patient is a 51-year-old white male, currently being treated for sepsis related to soft tissue infection near his mid thoracic area and his back. The patient has a history of recurrent anxiety, depression. Today, I spoke with the patient. His and son were at bedside. The patient had slightly restless night last night. I urged him to take p.r.n. Klonopin. His mental status reveals that he is awake, alert, coherent, lucid with depressed facies, sensorium was clear. Oriented to all ewing. The patient's thought processes were coherent, although thought processes are somewhat slow. Recent memory is generally intact. The patient appears depressed, although somewhat guarded regarding that. I reviewed outside solar sales consultant's reports. LABORATORY DATA: His white count is 1800, hemoglobin of 7.5. His platelet count is now 32,000. The patient's metabolic profile is normal except for a random glucose of 118, calcium of 8.5, total bilirubin 1.9. MEDICATIONS: Include Actigall p.r.n. Klonopin 0.5 mg q.6 hours p.r.n., Lanoxin 0.125 mg daily, meropenem, p.r.n. morphine IV 5 mg, Protonix, vancomycin IV. PHYSICAL EXAMINATION: VITAL SIGNS: Blood pressure 94/64, pulse 104, afebrile, respirations 20 per minute. 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 He has a soft tissue infection in his thoracic area of his back. He is status post incision and drainage of abscess in back. The patient has severe chronic anemia, coagulopathy, thrombocytopenia, history of diverticulitis. PLAN: Urged to take clonazepam at bedtime, and I am withholding antidepressants for now due to blood dyscrasia, but we will continue to monitor mental status. Alton Guthrie MD
--- NOTE | 2017-05-16 00:16 | PN ---
DATE: 05/15/2017 SUBJECTIVE: The patient was seen earlier this morning. In no acute distress, nontoxic. PHYSICAL EXAMINATION VITAL SIGNS: On exam, temperature is 98, blood pressure is 100/60, respiratory rate of 20, heart rate of 104. HEENT: Unremarkable. NECK: Supple. LUNGS: Decreased breath sounds. HEART: Normal S1 and S2. ABDOMEN: Soft, nontender. LABORATORY DATA: Reveals a white count is 1.8, hemoglobin of 7.5, platelets of 432. BUN of 12, creatinine of 0.5 and urinalysis is noted. Microbiology reveals a bag culture of Gram-positive cocci. Blood cultures are no growth, and heavy growth of gram-positive cocci 1 and 2. Review of orders reveals the patient is on vancomycin. ASSESSMENT AND PLAN: This is a 51-year-old male with sepsis of thoracic area, soft tissue infection with no evidence of bone involvement and no fluid collection and history of Waldenstrom macroglobulinemia, currently on vancomycin, pending identification and sensitivity of gram-positive cocci on the wound site. We will follow with you. Case was discussed with PMD. Anatoliy Luna MD
[2017-05-16] MEDS: Vancomycin 1gm in NS 250ml 1 GM/250 ML BAG IVPB SCH ×2 (03:05→13:35)
[2017-05-16] MEDS: Meropenem 1g/NS 100mL IVPB 1 GM/100 ML PIGGYBACK IVPB SCH ×3 (05:30→22:16)
[2017-05-16] MEDS: Morphine 4 mg/ml ISec IV PRN ×5 (05:31→22:16)
[2017-05-16 08:58] LABS: EOS % 0.8 % (1.5-5.0); GRAN # 1.08 (1.4-6.5); LYMPH # 0.2 (1.2-3.4); LYMPH % 11.8 % (22.0-35.0); MEAN CELL VOLUME 107.1 fl (80.0-105.0); MEAN CORPUSCULAR HEMOGLOBIN 33.6 pg (25.0-35.0); MEAN CORPUSCULAR HGB CONC 31.4 g/dl (31.0-37.0); MEAN PLATELET VOLUME 10.7 fl (7.0-11.0); MONO % 2.4 % (1.0-6.0); RED CELL DISTRIBUTION WIDTH 17.2 % (11.5-14.5)
[2017-05-16 09:07] LABS: HEMATOCRIT 22.6 % (42.0-52.0); PLATELET COUNT 30 10^3/uL (120.0-450.0); WHITE BLOOD COUNT 1.3 10^3/ul (4.5-11.0)
[2017-05-16 09:11] LABS: ALB/GLOB RATIO 0.9 (1.1-1.8); ALKALINE PHOSPHATASE 57 U/L (38-133); ALT/SGPT 25 U/L (7-56); AST/SGOT 14 U/L (15-59); BILIRUBIN,TOTAL 1.5 mg/dL (0.2-1.3); BLOOD UREA NITROGEN 11 mg/dL (7-21); CALCIUM 8.2 mg/dL (8.4-10.5); CARBON DIOXIDE 35 mmol/L (21-33); CHLORIDE 97 mmol/L (98-107); GFR AFRICAN-AMERICAN > 60; GLUCOSE,RANDOM 93 mg/dL (70-110); POTASSIUM 3.7 mmol/L (3.6-5.0); SODIUM 139 mmol/L (132-148); TOTAL PROTEIN 6.3 g/dL (5.8-8.3)
[2017-05-16] MEDS: Digoxin 125 mcg (0.125 mg) Tab PO SCH (13:35)
--- NOTE | 2017-05-16 15:24 | PN ---
DATE: Td Garcia is seen on the floor with the vice president commercial bank. The temperature is normal. Pulse is elevated. White count is 1.3, hemoglobin 9.1. SMA-18, bilirubin is slightly elevated at 1.4. CAT scan done on 05/12/2017, thoracic and spine CT, there are multiple areas of compression. The impression at that time is a dense infiltration of posterior spinous soft tissue without a collection. This area had been I and D and it was packed. A large amount of thick serosanguineous fluid was removed. Cultures are negative. I believe this is an infected pressure ulcer, as he does not move very much. We will treat this conservatively for now. If it persists, a CAT scan of this area might be beneficial, although I did not ordered it yet. The area of concern is right over bony prominence. The sacral stage I pressure ulcer is healing nicely. We will treat locally, but plan for an air mattress ordered here and probably needed at home. I spent a considerable amount of time with both him and his mother. He is advised to move as much as possible. His big concern is pain for now. Td Mas MD
--- NOTE | 2017-05-16 19:29 | PN ---
DATE: 05/16/2017 SUBJECTIVE: The patient is in bed, in no acute distress. PHYSICAL EXAMINATION VITAL SIGNS: Temperature is 97, blood pressure is 90/60, and respiratory rate of 16. HEENT: Unremarkable. NECK: Supple. LUNGS: Decreased breath sounds. HEART: Normal S1 and S2. ABDOMEN: Soft. LABORATORY DATA: Reveals a white count of 1.3, hemoglobin of 7, platelets of 30. Chemistry: Reveals a BUN 30, creatinine 0.5. Urinalysis is noted. Microbiology reveals MRSA and enterococcus faecalis, heavy growth. A review of orders reveals the patient to be on vancomycin and meropenem. The enterococcus is sensitive to ampicillin and the DYANA of vancomycin to 1. Although sensitive to clindamycin, it is resistant to erythromycin and it is sensitive to tetracycline, sensitive to Tygacil. PLAN: We may be able to send the patient home on p.o. doxycycline and p.o. Augmentin. Anatoliy Luna MD
--- NOTE | 2017-05-16 22:31 | CP.PCM.PN ---
Subjective - Date & Time of Evaluation Date of Evaluation: 05/16/17 Time of Evaluation: 10:00 - Subjective Subjective: he is complaining of back pain. pancytopenia, blood counts stable. He has MRSA from back wound culture. ID following. He is on morphine Q5 hr. Pain is not controlled with current regimen. CAD- right heart failure. stable . Objective - Vital Signs/Intake and Output Vital Signs (last 24 hours): Temp Pulse Resp BP Pulse Ox 97.7 F 109 H 20 90/62 L 99 05/16/17 07:25 05/16/17 07:25 05/16/17 07:25 05/16/17 07:25 05/16/17 07:25 Intake and Output: 05/16/17 05/17/17 18:59 06:59 Intake Total 825 Balance 825 - Medications Medications: Current Medications Clonazepam (Klonopin) 0.5 mg PO Q6H PRN PRN Reason: Anxiety Last Admin: 05/15/17 21:33 Dose: 0.5 mg Digoxin (Lanoxin) 0.125 mg PO 1400 [facility] Last Admin: 05/16/17 13:35 Dose: 0.125 mg Meropenem 1g/NS 100mL IVPB (Meropenem 1g/Ns 100ml Ivpb) 1 gm in 100 mls @ 100 mls/hr IVPB Q8 [facility] PRN Reason: Protocol Stop: 05/19/17 14:31 Last Admin: 05/16/17 22:16 Dose: 100 mls/hr Vancomycin HCl (Vancomycin 1gm) 1 gm in 250 mls @ 167 mls/hr IVPB Q12H [facility] PRN Reason: Protocol Last Admin: 05/16/17 13:35 Dose: 167 mls/hr Morphine Sulfate (Morphine) 3 mg IM Q3H PRN PRN Reason: Pain, moderate (4-7) Pantoprazole Sodium (Protonix Ec Tab) 20 mg PO 0600 [facility] Last Admin: 05/15/17 06:29 Dose: 20 mg Ursodiol (Actigall) 300 mg PO BID [facility] Last Admin: 05/16/17 17:12 Dose: 300 mg - Labs Labs: 05/16/17 08:50 05/16/17 08:50 PT 13.3 Seconds (9.9-11.8) H 05/12/17 00:56 INR 1.23 (0.93-1.08) H 05/12/17 00:56 APTT 29.9 Seconds (23.7-30.8) 05/12/17 00:56 - Head Exam Head Exam: ATRAUMATIC, NORMAL INSPECTION, NORMOCEPHALIC - Eye Exam Eye Exam: Normal appearance Pupil Exam: NORMAL ACCOMODATION - ENT Exam ENT Exam: absent: Mucous Membranes Dry, Mucous Membranes Moist, Normal Exam, Normal External Ear Exam, Normal Oropharynx, TM's Normal Bilaterally - Neck Exam Neck Exam: absent: Full ROM, Lymphadenopathy, Meningismus, Normal Inspection, Tenderness, Thyromegaly - Respiratory Exam Respiratory Exam: Clear to Ausculation Bilateral, NORMAL BREATHING PATTERN - Cardiovascular Exam Cardiovascular Exam: REGULAR RHYTHM, +S1, +S2 - GI/Abdominal Exam GI & Abdominal Exam: Soft, Normal Bowel Sounds - Back Exam Back Exam: muscle spasm - Neurological Exam Neurological Exam: Alert, Awake, Oriented x3 - Skin Skin Exam: Dry, Intact, Normal Color, Warm Assessment and Plan - Assessment and Plan (Free Text) Assessment: 1. Waldenstorm macroglobinemia 2. Paraspinal abscess- drained. 3. MRSA back wound. 4. Pancytopenia 5. CAD Plan : continue antibiotics as per ID. wound culture MRSA. Continue vanco, meropenem. pain back- morphine 3 mg Q 3 hrs. Will start MS contin 15 mg PO BID. pancytopenia. no blood products today. CAD - stable.
--- NOTE | 2017-05-16 22:41 | CP.PCM.PN ---
Subjective - Date & Time of Evaluation Date of Evaluation: 05/15/17 Time of Evaluation: 10:00 - Subjective Subjective: Comfortable in bed. No fever. Blood counts stable. Back wound drained. On IV antibiotics. Objective - Vital Signs/Intake and Output Vital Signs (last 24 hours): Temp Pulse Resp BP Pulse Ox 97.7 F 109 H 20 90/62 L 99 05/16/17 07:25 05/16/17 07:25 05/16/17 07:25 05/16/17 07:25 05/16/17 07:25 Intake and Output: 05/16/17 05/17/17 18:59 06:59 Intake Total 825 Balance 825 - Medications Medications: Current Medications Clonazepam (Klonopin) 0.5 mg PO Q6H PRN PRN Reason: Anxiety Last Admin: 05/15/17 21:33 Dose: 0.5 mg Digoxin (Lanoxin) 0.125 mg PO 1400 [facility] Last Admin: 05/16/17 13:35 Dose: 0.125 mg Meropenem 1g/NS 100mL IVPB (Meropenem 1g/Ns 100ml Ivpb) 1 gm in 100 mls @ 100 mls/hr IVPB Q8 [facility] PRN Reason: Protocol Stop: 05/19/17 14:31 Last Admin: 05/16/17 22:16 Dose: 100 mls/hr Vancomycin HCl (Vancomycin 1gm) 1 gm in 250 mls @ 167 mls/hr IVPB Q12H [facility] PRN Reason: Protocol Last Admin: 05/16/17 13:35 Dose: 167 mls/hr Morphine Sulfate (Morphine) 3 mg IM Q3H PRN PRN Reason: Pain, moderate (4-7) Morphine Sulfate (Morphine Extended Release Tab) 15 mg PO Q12 [facility] Pantoprazole Sodium (Protonix Ec Tab) 20 mg PO 0600 [facility] Last Admin: 05/15/17 06:29 Dose: 20 mg Ursodiol (Actigall) 300 mg PO BID [facility] Last Admin: 05/16/17 17:12 Dose: 300 mg - Labs Labs: 05/16/17 08:50 05/16/17 08:50 PT 13.3 Seconds (9.9-11.8) H 05/12/17 00:56 INR 1.23 (0.93-1.08) H 05/12/17 00:56 APTT 29.9 Seconds (23.7-30.8) 05/12/17 00:56 - Constitutional Appears: Chronically Ill - Head Exam Head Exam: ATRAUMATIC, NORMAL INSPECTION, NORMOCEPHALIC - Eye Exam Eye Exam: Normal appearance - ENT Exam ENT Exam: Mucous Membranes Moist, Normal Exam - Neck Exam Neck Exam: Normal Inspection - Respiratory Exam Respiratory Exam: Clear to Ausculation Bilateral, NORMAL BREATHING PATTERN - Cardiovascular Exam Cardiovascular Exam: REGULAR RHYTHM, +S1, +S2 - GI/Abdominal Exam GI & Abdominal Exam: Soft, Normal Bowel Sounds - Extremities Exam Extremities Exam: Normal Inspection - Back Exam Back Exam: NORMAL INSPECTION - Neurological Exam Neurological Exam: Alert, CN II-XII Intact, Oriented x3 - Psychiatric Exam Psychiatric exam: Depressed - Skin Skin Exam: Normal Color, Warm Assessment and Plan - Assessment and Plan (Free Text) Assessment: 1. Waldenstorm macroglobulinemai 2. pancytopenia 3. back abscess plan :Cultures from back wound pending . On IV antibitoics vanco, meropenem. pancytopenia : no blood products today. will continue to monitor closely. CAD : stable. Surgery, ID following. pain: continue IV morphine. medical records reviewed.
[2017-05-17] MEDS: Vancomycin 1gm in NS 250ml 1 GM/250 ML BAG IVPB SCH ×2 (01:39→15:54)
[2017-05-17] MEDS: Morphine 4 mg/ml ISec IM PRN ×2 (02:09→05:19)
[2017-05-17] MEDS: Meropenem 1g/NS 100mL IVPB 1 GM/100 ML PIGGYBACK IVPB SCH ×2 (05:18→13:54)
[2017-05-17] MEDS: Pantoprazole 20 mg EC Tab PO SCH (05:20)
[2017-05-17] MEDS: Morphine 4 mg/ml ISec IVP PRN ×5 (08:15→21:39)
[2017-05-17 08:35] LABS: EOS % 1.8 % (1.5-5.0); GRAN # 0.84 (1.4-6.5); GRAN % 73.6 % (50.0-68.0); LYMPH # 0.2 (1.2-3.4); LYMPH % 13.2 % (22.0-35.0); MEAN CELL VOLUME 105.8 fl (80.0-105.0); MEAN CORPUSCULAR HEMOGLOBIN 33.7 pg (25.0-35.0); MEAN CORPUSCULAR HGB CONC 31.8 g/dl (31.0-37.0); MEAN PLATELET VOLUME 10.7 fl (7.0-11.0); MONO # 0.1 (0.1-0.6); MONO % 11.4 % (1.0-6.0); RED CELL DISTRIBUTION WIDTH 16.8 % (11.5-14.5)
[2017-05-17 08:40] LABS: BLOOD UREA NITROGEN 10 mg/dL (7-21); CALCIUM 8.3 mg/dL (8.4-10.5); CARBON DIOXIDE 35 mmol/L (21-33); CHLORIDE 96 mmol/L (95-110); GFR AFRICAN-AMERICAN > 60; GLUCOSE,RANDOM 93 mg/dL (70-110); POTASSIUM 3.9 mmol/L (3.6-5.0); SODIUM 137 mmol/L (132-148)
[2017-05-17 08:55] LABS: WHITE BLOOD COUNT 1.1 10^3/ul (4.5-11.0)
[2017-05-17 08:57] LABS: PLATELET COUNT 30 10^3/uL (120.0-450.0)
[2017-05-17] MEDS: Morphine 15 mg SR Tab PO SCH ×2 (09:56→21:54)
[2017-05-17] MEDS: Digoxin 125 mcg (0.125 mg) Tab PO SCH (13:54)
--- NOTE | 2017-05-17 13:54 | PN ---
DATE: SUBJECTIVE: The patient is a 51-year-old male who is currently being treated for a methicillin-resistant abscess in his back and his thoracic region. He is receiving IV antibiotics, has a history of recurrent depression. Last night, he has extreme difficulty sleeping. The patient still has significant degree of back pain. The patient is oriented x3. His memory is intact. No suicidal ideation, but his mood depressed. MEDICATIONS: The patient's current medications include Actigall, Lenoxin, p.r.n. morphine, meropenem IV. He has been started on extended release morphine 15 mg q. 12 hours. He is on Protonix, vancomycin IV and p.r.n. clonazepam. LABORATORY DATA: His white count is 1100, hemoglobin is 7.0, and his platelet count is 30,000. His absolute neutrophil count is 840. The patient had a wound culture revealing methicillin-resistant Staph aureus and Enterococcus faecalis. PHYSICAL EXAMINATION CURRENT VITAL SIGNS: His blood pressure is 87/62, respirations are 20 per minute. He is afebrile. His O2 saturation is 99% and pulse is 77. IMPRESSION: The patient has methicillin-resistant Staphylococcus aureus infection in the back. The patient is on intravenous antibiotics, he has depression, he has insomnia, and he has pancytopenia. The patient has Waldenstrom's macroglobulinemia and the patient also has an enterococcal infection. The patient has history of chronic pain. He has a history of coronary artery disease and right-sided heart failure, which is stable. PLAN: We will give trial of mirtazapine 15 mg at bedtime and 0.5 mg of Ativan at bedtime p.r.n. We will monitor mental status. Alton Guthrie MD
[2017-05-17] MEDS: Amoxicillin-Clav 875-125 mg Tab PO SCH (21:36)
--- NOTE | 2017-05-17 21:39 | PN ---
DATE: 05/17/2017 SUBJECTIVE: The patient is seen earlier today. No fevers, no chills, no nausea. PHYSICAL EXAMINATION: VITAL SIGNS: Temperature is 98, blood pressure is 90/60 and respiratory rate of 18. HEENT: Unremarkable. NECK: Supple. LUNGS: Has decreased breath sounds. HEART: Normal S1 and S2. ABDOMEN: Soft. LABORATORY DATA: Reveals a white count of 1.1 and hemoglobin of 7. Chemistry reveals a BUN of 10, creatinine of 0.5 and urinalysis is noted. Microbiology reveals MRSA and enterococcus faecalis. The enterococcus is sensitive to ampicillin. MRSA vancomycin DYANA is 1. Oxacillin resistant and tetracycline sensitive. ASSESSMENT AND PLAN: A 51-year-old male with history of Waldenstrom macroglobulinemia with sepsis and thoracic soft tissue infection, no evidence of bone infection. With methicillin-resistant Staphylococcus aureus and enterococcus, may complete with p.o. Augmentin and p.o. doxycycline to complete therapy. Case discussed with Dr. Ward, who is covering the primary. For today, would go to p.o. Augmentin, p.o. doxycycline for 7 days. We will follow closely with you. Anatoliy Luna MD
--- NOTE | 2017-05-17 22:41 | CP.PCM.PN ---
Subjective - Date & Time of Evaluation Date of Evaluation: 05/17/17 Time of Evaluation: 12:00 - Subjective Subjective: No complaints. pain better controlled with Q 3 hr regimen. Blood counts stable. Objective - Vital Signs/Intake and Output Vital Signs (last 24 hours): Temp Pulse Resp BP Pulse Ox 98.5 F 97 H 19 87/60 L 100 05/17/17 16:00 05/17/17 16:00 05/17/17 16:00 05/17/17 16:00 05/17/17 16:00 Intake and Output: 05/17/17 05/18/17 18:59 06:59 Intake Total 960 Output Total 750 Balance 210 - Medications Medications: Current Medications Amoxicillin/Clavulanate Potassium (Augmentin 875 Mg-125 Mg Tab) 1 tab PO Q12 [facility] PRN Reason: Protocol Stop: 05/24/17 22:01 Last Admin: 05/17/17 21:36 Dose: 1 tab Digoxin (Lanoxin) 0.125 mg PO 1400 [facility] Last Admin: 05/17/17 13:54 Dose: 0.125 mg Doxycycline Hyclate (Doryx) 100 mg PO Q12 [facility] PRN Reason: Protocol Stop: 05/24/17 22:01 Last Admin: 05/17/17 21:38 Dose: 100 mg Lorazepam (Ativan) 0.5 mg PO HS [facility] Last Admin: 05/17/17 21:38 Dose: 0.5 mg Mirtazapine (Remeron) 15 mg PO HS [facility] Last Admin: 05/17/17 21:39 Dose: 15 mg Morphine Sulfate (Morphine Extended Release Tab) 15 mg PO Q12 [facility] Last Admin: 05/17/17 21:54 Dose: 15 mg Morphine Sulfate (Morphine) 3 mg IVP Q3H PRN PRN Reason: Pain, moderate (4-7) Last Admin: 05/17/17 21:39 Dose: 3 mg Pantoprazole Sodium (Protonix Ec Tab) 20 mg PO 0600 [facility] Last Admin: 05/17/17 05:20 Dose: 20 mg Ursodiol (Actigall) 300 mg PO BID [facility] Last Admin: 05/17/17 17:54 Dose: 300 mg - Labs Labs: 05/17/17 08:20 05/17/17 08:20 PT 13.3 Seconds (9.9-11.8) H 05/12/17 00:56 INR 1.23 (0.93-1.08) H 05/12/17 00:56 APTT 29.9 Seconds (23.7-30.8) 05/12/17 00:56 - Constitutional Appears: Chronically Ill - Head Exam Head Exam: ATRAUMATIC, NORMAL INSPECTION, NORMOCEPHALIC - Eye Exam Eye Exam: absent: Conjunctival injection, EOMI, Normal appearance, Nystagmus, Periorbital swelling, Periorbital tenderness, PERRL, Scleral icterus - Neck Exam Neck Exam: absent: Full ROM, Lymphadenopathy, Meningismus, Normal Inspection, Tenderness, Thyromegaly - Respiratory Exam Respiratory Exam: absent: Accessory Muscle Use, Chest Wall Tenderness, Decreased Breath Sounds, Clear to Ausculation Bilateral, Prolonged Expiratory Phase, Rales, Rhonchi, Wheezes, Respiratory Distress, Stridor, NORMAL BREATHING PATTERN - Cardiovascular Exam Cardiovascular Exam: REGULAR RHYTHM, +S1, +S2 - GI/Abdominal Exam GI & Abdominal Exam: absent: Bruit, Distended, Firm, Guarding, Rigid, Soft, Tenderness, Diminished Bowel Sounds, Hernia, Hyperactive Bowel Sounds, Hypoactive Bowel Sounds, Normal Bowel Sounds, Organomegaly, Pulsatile Mass, Rebound, Mass - Extremities Exam Extremities Exam: Normal Inspection - Back Exam Back Exam: absent: CVA tenderness (L), CVA tenderness (R), Full ROM, muscle spasm, NORMAL INSPECTION, paraspinal tenderness, rash noted, tenderness, vertebral tenderness - Neurological Exam Neurological Exam: Alert, Oriented x3 - Psychiatric Exam Psychiatric exam: Depressed - Skin Skin Exam: Normal Color, Warm Assessment and Plan - Assessment and Plan (Free Text) Assessment: 1. Waldenstorm macroglobinemia 2. Paraspinal abscess- drained. 3. MRSA back wound. 4. Pancytopenia 5. CAD Plan : Po antibiotics augmentin, doxy as per ID. pain back- morphine 3 mg Q 3 hrs. MS contin 15 mg PO BID. pancytopenia. no blood products today. CAD - stable. CAD : no issues. Discharge tomorrow.
[2017-05-18] MEDS: Morphine 4 mg/ml ISec IVP PRN ×5 (01:45→15:57)
[2017-05-18] MEDS: Pantoprazole 20 mg EC Tab PO SCH ×2 (06:17→06:18)
[2017-05-18 07:55] VITALS: O2SAT 97
[2017-05-18] MEDS: Morphine 15 mg SR Tab PO SCH (09:06)
[2017-05-18] MEDS: Amoxicillin-Clav 875-125 mg Tab PO SCH (09:06)
[2017-05-18 12:58] VITALS: RESP 18
[2017-05-18] MEDS: Digoxin 125 mcg (0.125 mg) Tab PO SCH (14:23)
[2017-05-18 14:27] VITALS: PULSE 98
--- NOTE | 2017-05-18 15:01 | PN ---
SUBJECTIVE: The patient is a 51-year-old white male, who has been treated for methicillin-resistant Staph aureus sepsis and also a soft tissue abscess, which was drained several days ago. The patient has a history of depression, insomnia, anxiety. Currently, his mental status reveals that he is awake and alert. His affect is somewhat flat. He is depressed, no suicidal ideation or psychotic symptoms. The patient states he slept better last night. He was started on mirtazapine and lorazepam. The patient was switched today to p.o. antibiotics. The patient will be going home later today and I will be calling in for an antidepressant mirtazapine 15 mg at bedtime and lorazepam 0.5 mg at bedtime. He is not having any adverse effect to those medications. PHYSICAL EXAMINATION VITAL SIGNS: Blood pressure is 92/56, pulse 66, and respirations 20 per minute. MEDICATIONS: His other medications include Actigall, Augmentin, doxycycline, Lanoxin, p.r.n. morphine extended release 15 mg q.12 h., and Protonix. PLAN: The patient is also instructed to call me within a few weeks or if he is having adverse effects from medicines I prescribed and we will follow him as an outpatient. Alton Guthrie MD
--- NOTE | 2017-05-18 15:15 | PN ---
DATE: SUBJECTIVE: He is afebrile, vital signs are normal. The I&D of the back showed MRSA and enterococcus. The wounds are still draining, but the area is much improved. We will treat as an infected decubitus. There is no evidence of sebaceous cyst. The patient needs offloading with air mattress both here and then at home. There adequately he should be moving more. We will follow without surgical expectation. Td Mas MD
[2017-05-18 15:24] VITALS: BP 84/57; PULSE 100; TEMP 98.8
--- NOTE | 2017-05-18 21:20 | PN ---
DATE: 05/18/2017 SUBJECTIVE: The patient is in bed, in no acute distress. PHYSICAL EXAMINATION: VITAL SIGNS: Temperature is 99, blood pressure is 92/40, respiratory rate of 18. HEENT: Unremarkable. NECK: Supple. LUNGS: Decreased breath sounds. HEART: Normal S1 and S2. ABDOMEN: Soft, nontender. LABORATORY DATA: Reveals the patient's white count of 1.1, hemoglobin of 7, platelets of 30. Microbiology reveals MRSA and enterococcus faecalis. Review of orders reveals on p.o. Augmentin and p.o. doxycycline. ASSESSMENT AND PLAN: A 51-year-old with a history of Waldenstrom macroglobulinemia and sepsis and thoracic soft tissue infection with no evidence of bone infection with methicillin-resistant Staphylococcus aureus and enterococcus, on p.o. Augmentin and p.o. doxycycline x7 days, discussed with primary medical doctor. Anatoliy Luna MD
--- NOTE | 2017-05-19 01:27 | CON ---
FOLLOWUP ONCOLOGY CONSULTATION HISTORY OF PRESENT ILLNESS: This is a patient I have known for many years with history of Waldenstrom's macroglobulinemia of a pretty aggressive sort and he has other medical problems as well. He has a severe heart failure with a low ejection fraction. He also was status post a colostomy for diverticulitis about a year ago. He has been on various kinds of chemotherapy in the past including Velcade and prednisone. Most recently, he has been getting treatment in [facility] [place] with chlorambucil and he takes that for seven days, once every six weeks. He is due to get that treatment again soon. In the meantime, his IgM levels have really not improved much. It is still around 4000, give or take. With a pancytopenia that is severe, his white counts generally run around 1, his hemoglobin around 7, and platelet count around 30,000 to 50,000. We used to give him transfusions for his hemoglobin, but he is relatively asymptomatic as he is essentially in bed all the time and we have been holding transfusions unless it is down from 7. The patient is now admitted for that infection in the back and he is on antibiotics for this. He will continue to get his chlorambucil treatments and treatments for the Waldenstrom's at [place]. At present, he does have the pancytopenia. We are holding off on the transfusion unless hemoglobin is below 7, so he got transfusion recently. We did give him a course of Neupogen and platelet count. He has no petechia and no bruises. PHYSICAL EXAMINATION: SKIN: No petechia. HEENT: No mucosal bleeding noted. NODES: Nonpalpable. LUNGS: Clear at present. No vertebral tenderness. The patient is able to lie flat, but he does use oxygen. HEART: S1 and S2. ABDOMEN: Shows no liver, no spleen. No tenderness. EXTREMITIES: No edema. COLLAR STARCHER: No focal findings. PLAN: At present, he has been treated for the infection and as well as the plan would be continue treatment at [place]. Osvaldo Nolasco MD
--- NOTE | 2017-05-19 08:32 | DS ---
SUBJECTIVE: This is a 51-year-old male, who is coming into the hospital because of abscess that he had. He had I and D done. The patient was being treated with IV antibiotics. He had improvement of his symptoms. He had a CT scan that did not show osteomyelitis. He was seen by surgery and infectious disease. He is going to be switched over to p.o. antibiotics with doxycycline and Augmentin. He is also given 1 unit of blood transfusion because of his hemoglobin being 7. He was given Percocet for pain. He is going to follow up with his oncologist in . PHYSICAL EXAMINATION: VITAL SIGNS: Temperature is 98.6, pulse is 76, respirations 18. GENERAL: The patient is lying in bed, flat, comfortable. HEENT: No oral lesion. Anicteric sclerae. Moist mucosa. NECK: No JVD, adenopathy, or thyromegaly. CARDIOVASCULAR: S1 and S2, regular. No murmurs, rubs, or gallops. LUNGS: Clear to auscultation bilaterally. No wheeze, rales, or rhonchi. ABDOMEN: Bowel sounds are positive, soft, nontender and nondistended. EXTREMITIES: No cyanosis, clubbing or edema. ASSESSMENT: 1. Abscess on the back. 2. Pancytopenia. 3. Waldenstrom macroglobulinemia. PLAN: The patient is currently comfortable. He is going home today to follow up as an outpatient. CONDITION: Stable. ACTIVITIES: Increase as tolerated. Waqas Dixon MD
== END 2017-05-18 17:07 | disposition home or self-care (01) | DRG 871 ==
LOC: ED 00:02 → ERH 03:24 → 3RNO 05:01
PROVIDERS: ADMIT Internal Medicine; ATTEND Internal Medicine
PROC: 30233N1 Transfusion of Nonautologous Red Blood Cells into Peripheral Vein, Percutaneous Approach (ICD-10-PCS; 2017-05-12)
PROC: 0H96XZX Drainage of Back Skin, External Approach, Diagnostic (ICD-10-PCS; principal; 2017-05-13)
DX: A41.9 Sepsis, unspecified organism (principal); L02.212 Cutaneous abscess of back [any part, except buttock and flank]; L03.312 Cellulitis of back [any part except buttock and flank]; D61.810 Antineoplastic chemotherapy induced pancytopenia; F33.9 Major depressive disorder, recurrent, unspecified; M48.54XA Collapsed vertebra, not elsewhere classified, thoracic region, initial encounter for fracture; I50.9 Heart failure, unspecified; I11.0 Hypertensive heart disease with heart failure; L89.151 Pressure ulcer of sacral region, stage 1; C88.0 Waldenstrom macroglobulinemia; I48.2 Chronic atrial fibrillation; Z74.01 Bed confinement status; I25.10 Atherosclerotic heart disease of native coronary artery without angina pectoris; F41.1 Generalized anxiety disorder; B95.62 Methicillin resistant Staphylococcus aureus infection as the cause of diseases classified elsewhere; B95.2 Enterococcus as the cause of diseases classified elsewhere; G89.29 Other chronic pain; M19.90 Unspecified osteoarthritis, unspecified site; R26.9 Unspecified abnormalities of gait and mobility; Z79.01 Long term (current) use of anticoagulants; Z93.3 Colostomy status

== ENCOUNTER 2017-05-25 15:22 | Inpatient (IN) | payer MEDICARE, OTHER ==
[2017-05-25] MEDS ORDERED: Vancomycin 1gm in NS 250ml 1 GM/250 ML BAG IVPB STA (15:46)
[2017-05-25] MEDS ORDERED: Piperacill/Tazo 4.5gm in NS 4.5 GM/100 ML BAG IVPB STA (15:54)
[2017-05-25 15:55] VITALS: BMI 26.1
--- NOTE | 2017-05-25 16:02 | ED PDOC ---
Arrival/HPI - General Time Seen by Provider: 05/25/17 15:45 Historian: Patient - History of Present Illness Narrative History of Present Illness (Text): 05/25/17 15:56 A 51 year old male, whose past medical history includes Waldenstrom Macroglobulinanemia and atrial fibrillation, presents to the emergency department complaining of a fever. Patient reports a temperature of 101.4. He states he had an incision and drainage procedure performed 2 weeks ago on an abscess on his back. He reports the abscess continues draining and still experiences pain. Patient denies any nausea, vomiting or any other complaints. Past Medical History - Provider Review Nursing Documentation Reviewed: Yes - Infectious Disease Hx of Infectious Diseases: None - Cardiac Hx Cardiac Disorders: Yes Hx Atrial Fibrillation: Yes Hx Congestive Heart Failure: Yes Hx Hypertension: Yes - Pulmonary Hx Chronic Obstructive Pulmonary Disease (COPD): No Other/Comment: on home O2 for low sat - Neurological Hx Transient Ischemic Attacks (TIA): No - HEENT Hx HEENT Disorder: No Hx Blind: No Hx Cataracts: No Hx Deafness: No Hx Difficulty Chewing: No Hx Epistaxis: No Hx Glaucoma: No Hx Macular Degeneration: No - Renal Hx Renal Failure: No - Endocrine/Metabolic Hx Diabetes Mellitus Type 1: No Hx Diabetes Mellitus Type 2: No - Hematological/Oncological Hx Blood Transfusions: Yes Hx Blood Transfusion Reaction: No Hx Cancer: Yes (Blood Cancer as per patient) Hx Chemotherapy: Yes - Integumentary Hx Dermatological Disorder: No Hx Basal Cell Carcinoma: No Hx Eczema: No Hx Melanoma: No Hx Psoriasis: No Hx Squamous Cell Carcinoma: No - Musculoskeletal/Rheumatological Hx Back Pain: Yes Hx Falls: Yes - Gastrointestinal Hx Gastrointestinal Disorders: Yes Hx Bowel Surgery: Yes Hx Colostomy: Yes (LUQ) Hx Crohn's Disease: No Hx Diverticulitis: Yes Hx Gall Bladder Disease: No Hx Gastroesophageal Reflux: No Hx Ileostomy: No Hx Liver Failure: No Hx Pancreatitis: No HX Swallowing Problems: No - Genitourinary/Gynecological Hx Genitourinary Disorders: No Hx Hematuria: No Hx Incontinence: No Hx Prostate Problems: No Hx Sexually Transmitted Diseases: No Hx Urinary Tract Infection: Yes - Psychiatric Hx Emotional Abuse: No Hx Physical Abuse: No Hx Substance Use: No - Surgical History Hx Gastric Bypass Surgery: No - Anesthesia Hx Anesthesia: Yes Hx Anesthesia Reactions: No Hx Malignant Hyperthermia: No - Suicidal Assessment Feels Threatened In Home Enviroment: No Family/Social History - Physician Review Nursing Documentation Reviewed: Yes Family/Social History: No Known Family HX Smoking Status: Never Smoked Hx Alcohol Use: No Hx Substance Use: No Allergies/Home Meds Allergies/Adverse Reactions: Allergies No Known Allergies Allergy (Verified 05/25/17 15:49) Home Medications: Home Meds Medication Instructions Recorded Confirmed Unobtainable 05/25/17 05/25/17 Physical Exam - Physical Exam Narrative Physical Exam (Text): - Review of Systems Constitutional: (+) Fever absent: Fatigue, Weight Change Eyes: Normal ENT: Normal Respiratory: Normal absent: SOB, Cough, Sputum Cardiovascular: Normal absent: Chest pain, Palpitations, Syncope Gastrointestinal: Normal absent: Abdominal pain, Diarrhea, Nausea, Vomiting Genitourinary: Normal. absent: Dysuria, Frequency, Hematuria Musculoskeletal: Normal. absent: Arthralgias, Back Pain, Neck Pain Skin: (+) Drainage and pain from abscess on back, which was recently drained Neurological: Normal absent: Focal Weakness Endocrine: Normal Hemo/Lymphatic: Normal Psychiatric: Normal - Physical exam Patient appears age appropriate, speaking full sentences without difficulty - Systems Exam Head: Present: Atraumatic, Normocephalic Pupils: Present: PERRL Extraocular Muscles: Present: EOMI Conjunctiva: Present: Normal Mouth: Present: Moist Mucous Membranes Neck: Present: Normal Range of Motion. No: MIDLINE TENDERNESS, Paraspinal Tenderness Respiratory/Chest: Present: Clear to Auscultation, Good Air Exchange. No: Respiratory Distress, Accessory Muscle Use, Tachypnic Cardiovascular: Present: Regular Rate and Rhythm, Normal S1, S2, Peripheral Pulses Present. No: Murmurs Abdomen: Present: Normal Bowel Sounds, Colostomy bag, normal appearing stool inside. No: Tenderness, Peritoneal Signs, Rebound, Guarding, Distention Back: Present: Normal Inspection. No: Midline Tenderness, Paraspinal Tenderness Upper Extremity: Present: Normal Inspection. No: Cyanosis, Edema Lower Extremity: Present: Normal Inspection. No: Edema Neurological: Present: GCS=15, Speech Normal, cranial nerves II through XII fully intact with no cerebellar abnormality, neuro-sensory fully intact. No focal neurological deficits. Skin: Present: Drainage and foul smell from abscess on back in mid-thoracic region. No: Rashes Lymphatic: Present: OX3, NI, NC Psychiatric: Present: Alert, Oriented x 3, Normal Insight, Normal Concentration Vital Signs Temp Pulse Resp BP Pulse Ox 05/25/17 21:39 100.1 F H 106 H 16 82/54 L 05/25/17 21:37 100.1 F H 05/25/17 20:54 99.2 F 109 H 16 88/62 L 05/25/17 20:38 99.1 F 113 H 13 87/53 L 05/25/17 18:56 104 H 17 70/31 L 99 05/25/17 17:15 100.1 F H 05/25/17 16:18 102.1 F H 120 H 18 104/66 99 05/25/17 16:09 103.2 F H 101 H 17 104/66 100 Appearance: Positive for: Well-Appearing, Non-Toxic, Comfortable Pain Distress: None Mental Status: Positive for: Alert and Oriented X 3 Medical Decision Making ED Course and Treatment: 05/25/17 15:56 Impression: A 51 year old male with a fever of 101.4. Patient notes continued drainage and pain from abscess on back, which was previously drained. Plan: -- Chest xray -- EKG -- Labs -- Blood and Urine culture -- Urinalysis -- Tylenol, Morphine, IV fludis, Vancomycin and Zosyn -- Reassess and disposition Prior Visits: Notes and results from previous visits were reviewed. Patient last seen in the ED on 05/12/16 for an abscess on his back. Patient had an incision and drainage procedure done. Progress Notes: EKG shows atrial fibrillation at [address]-segment elevations. Interpreted by me. 05/25/17 16:[address] Ward (covering for PMD) in detail, who accepts admission to her service. 05/25/17 16:21 Case discussed with resident Gertrudis Yates, who states she will evaluate patient. 05/25/17 16:22 Chest X-ray read and interpreted by me, which shows no cardiomegaly, mild vascular congestion, no changes from prior on 05/12/17. 05/25/17 16:[address] Luna per PMD's request, who states will evaluate patient. 05/25/17 18:22 Hb low, transfusion ordered by Dr. Ward 05/25/17 22:[address] Brambila from [facility], states pt is stable for tele - Lab Interpretations Microbiology Results: Microbiology Results 05/25/17 17:00 Back Gram Stain - Final Lab Results: 05/25/17 16:00 05/25/17 16:00 Lab Results 05/25/17 17:25: Blood Type A NEGATIVE, Antibody Screen Negative, Crossmatch See Detail, BBK History Checked Patient has bt 05/25/17 16:00: ESR > 140 H 05/25/17 16:00: Total Creatine Kinase < 20 L 05/25/17 16:00: Sodium 137, Chloride 94 L, Potassium 4.3, Carbon Dioxide 35 H, Anion Gap 12, BUN 14, Creatinine 0.6, Est GFR ( Amer) > 60, Est GFR (Non- Af Amer) > 60, Random Glucose 115 H, Calcium 8.5, Phosphorus 3.8, Magnesium 1.6 L, Total Bilirubin 1.4 H, AST 19, ALT 10, Alkaline Phosphatase 63, Total Protein 6.5, Albumin 3.0, Globulin 3.6, Albumin/Globulin Ratio 0.8 L 05/25/17 16:00: pO2 48, VBG pH 7.41, VBG pCO2 63.0 H, VBG HCO3 39.9 H, VBG Total CO2 41.8 H, VBG O2 Sat (Calc) 88.5 H, VBG Base Excess 12.4 H, VBG Potassium 4.4, Sodium 136.0, Chloride 99.0, Glucose 120 H, Lactate 1.0, FiO2 21.0, Venous Blood Potassium 4.4 05/25/17 16:00: PT 14.7 H, INR 1.36 H, APTT 33.2 H 05/25/17 16:00: WBC 1.6 L* D, RBC 2.07 L, Hgb 6.8 L*, Hct 21.9 L, MCV 105.8 H, MCH 32.9, MCHC 31.1, RDW 17.9 H, Plt Count 35 L*, MPV 9.9, Gran % 83.3 H, Lymph % (Auto) 10.3 L, Phillips % (Auto) 6.4 H, Eos % (Auto) 0.0 L, Baso % (Auto) 0.0, Gran # 1.30 L, Lymph # 0.2 L, Phillips # 0.1, Eos # 0.0, Baso # 0.00, Neutrophils % (Manual) 90 H, Lymphocytes % (Manual) 9 L, Monocytes % (Manual) 1, Platelet Evaluation Low, Anisocytosis (manual) Slight, Macrocytosis (manual) Slight I have reviewed the lab results: Yes - RAD Interpretation Radiology Orders: 05/25/17 15:47 CHEST PORTABLE [RAD] Stat - Medication Orders Current Medication Orders: Acetaminophen (Tylenol 325mg Tab) 975 mg PO ONCE PRN PRN Reason: Fever >100.4 F Last Admin: 05/25/17 16:15 Dose: 975 mg Re-Assess: BANNER Pain/Vitals Document 05/25/17 17:15 HI (Rec: 05/25/17 21:14 HI [email or web address] Vitals Temperature (97.6 F-99.6 F) 100.1 F Temperature Source Rectal Carvedilol (Coreg) 3.125 mg PO BID [facility] Last Admin: 05/25/17 19:12 Dose: Not Given Non-Admin Reason: Patient Refused Clonazepam (Klonopin) 0.5 mg PO TID PRN; Protocol PRN Reason: Agitation Digoxin (Lanoxin) 0.125 mg PO 1400 [facility] Diltiazem HCl (Cardizem Cd) 180 mg PO DAILY [facility] Daptomycin 490 mg/ Sodium (Chloride) 100 mls @ 200 mls/hr IV Q24H [facility] Stop: 06/01/17 19:31 Sodium Chloride (Sodium Chloride 0.9%) 1,000 mls @ 100 mls/hr IV .Q10H [facility] Morphine Sulfate (Morphine) 3 mg IVP Q3 PRN PRN Reason: Pain, moderate (4-7) Last Admin: 05/25/17 19:12 Dose: 3 mg Re-Assess: BANNER Pain Assessment Document 05/25/17 20:12 HI (Rec: 05/25/17 21:14 HI [email or web address] Pain Reassessment Is this a pain reassessment? Yes Sleep Is patient sleeping during reassessment? No Presence of Pain Presence of Pain Yes Pain Scale Used Pain Scale Used Numeric Description Intensity of Pain at present 2 Morphine Sulfate (Morphine Extended Release Tab) 15 mg PO Q12 [facility] Sennosides (Senokot Tab) 8.6 mg PO DAILY [facility] Last Admin: 05/25/17 19:12 Dose: Not Given Non-Admin Reason: Patient Refused Discontinued Medications Docusate Sodium (Colace) 100 mg PO STAT ST[facility] Stop: 05/25/17 17:32 Last Admin: 05/25/17 19:12 Dose: Not Given Non-Admin Reason: Patient Refused Hydromorphone HCl (Dilaudid) 0.5 mg IVP STAT STA Stop: 05/25/17 20:47 Last Admin: 05/25/17 21:22 Dose: 0.5 mg Sodium Chloride 1,000 ml/ IV (SUPPLIES) 1,000 mls @ 6,803.88 mls/hr IV ONCE ONE PRN Reason: 60 ML/KG/HR Stop: 05/25/17 15:47 Last Admin: 05/25/17 16:15 Dose: 6,803.88 mls/hr Vancomycin HCl (Vancomycin 1gm) 1 gm in 250 mls @ 167 mls/hr IVPB STAT STA PRN Reason: Protocol Stop: 05/25/17 17:15 Last Admin: 05/25/17 17:40 Dose: 167 mls/hr Piperacillin Sod/Tazobactam Sod (Zosyn 4.5 Gm In Ns 100ml) 4.5 gm in 100 mls @ 200 mls/hr IVPB STAT STA PRN Reason: Protocol Stop: 05/25/17 16:23 Last Admin: 05/25/17 16:14 Dose: 200 mls/hr Sodium Chloride (Sodium Chloride 0.9%) 1,000 mls @ 1,000 mls/hr IV .Q1H [facility] Stop: 05/25/17 21:33 Last Admin: 05/25/17 21:23 Dose: 1,000 mls/hr Lidocaine HCl (Lidocaine 1% (20ml)) 1 ml IJ STAT STA Stop: 05/25/17 17:28 Morphine Sulfate (Morphine) 6 mg IVP STAT STA Stop: 05/25/17 15:50 Last Admin: 05/25/17 16:15 Dose: 6 mg Morphine Sulfate (Morphine) 4 mg IVP STAT STA Stop: 05/25/17 18:58 Last Admin: 05/25/17 21:25 Dose: - Scribe Statement The provider has reviewed the documentation as recorded by the Camilo Macedo Provider Scribe Attestation: All medical record entries made by the Scribe were at my direction and personally dictated by me. I have reviewed the chart and agree that the record accurately reflects my personal performance of the history, physical exam, medical decision making, and the department course for this patient. I have also personally directed, reviewed, and agree with the discharge instructions and disposition. Disposition/Present on Arrival - Present on Arrival Any Indicators Present on Arrival: No History of DVT/PE: No History of Uncontrolled Diabetes: No Urinary Catheter: No History Surgical Site Infection Following: Bariatric Surgery - Disposition Have Diagnosis and Disposition been Completed?: Yes Diagnosis: Anemia, Abscess Disposition: HOSPITALIZED Disposition Time: 18:22 Patient Plan: Admission Patient Problems: Current Active Problems Problem Status Onset Abscess Acute Anemia Acute Condition: FAIR
[2017-05-25 16:25] LABS: GRAN % 83.3 % (50.0-68.0); LYMPH # 0.2 (1.2-3.4); LYMPH % 10.3 % (22.0-35.0); MEAN CELL VOLUME 105.8 fl (80.0-105.0); MEAN CORPUSCULAR HEMOGLOBIN 32.9 pg (25.0-35.0); MEAN CORPUSCULAR HGB CONC 31.1 g/dl (31.0-37.0); MEAN PLATELET VOLUME 9.9 fl (7.0-11.0); MONO # 0.1 (0.1-0.6); MONO % 6.4 % (1.0-6.0); RED CELL DISTRIBUTION WIDTH 17.9 % (11.5-14.5)
[2017-05-25 16:31] LABS: VENOUS BLOOD GAS BASE EXCESS 12.4 mmol/L (0.0-2.0); VENOUS BLOOD PH 7.41 (7.32-7.43)
[2017-05-25 16:33] LABS: WHITE BLOOD COUNT 1.6 10^3/ul (4.5-11.0)
[2017-05-25 16:34] LABS: HEMATOCRIT 21.9 % (42.0-52.0); PLATELET COUNT 35 10^3/uL (120.0-450.0)
[2017-05-25 16:41] LABS: ALB/GLOB RATIO 0.8 (1.1-1.8); ALKALINE PHOSPHATASE 63 U/L (38-126); ALT/SGPT 10 U/L (7-56); AST/SGOT 19 U/L (17-59); BILIRUBIN,TOTAL 1.4 mg/dL (0.2-1.3); BLOOD UREA NITROGEN 14 mg/dL (7-21); CALCIUM 8.5 mg/dL (8.4-10.5); CARBON DIOXIDE 35 mmol/L (21-33); CHLORIDE 94 mmol/L (98-107); GFR AFRICAN-AMERICAN > 60; GLUCOSE,RANDOM 115 mg/dL (70-110); MAGNESIUM 1.6 mg/dL (1.7-2.2); PHOSPHOROUS 3.8 mg/dL (2.5-4.5); POTASSIUM 4.3 mmol/L (3.6-5.0); SODIUM 137 mmol/L (132-148); TOTAL PROTEIN 6.5 g/dL (5.8-8.3)
[2017-05-25 16:42] LABS: INR 1.36 (0.93-1.08); PARTIAL THROMBOPLASTIN TIME 33.2 Seconds (23.7-30.8)
--- NOTE | 2017-05-25 16:51 | CP.PCM.CON ---
History of Present Illness - History of Present Illness History of Present Illness: Consult note for Dr. Mas 51M presents with fever, temperature of 101.4 at home and drainage from abscess. Patient has a past medical history of Waldenstrom Macroglobulinemia and atrial fibrillation. In ED patient has a temperature of 103.1. Patient has an abscess treated with I&D [address] Mas and patient reports the abscess continues to drain. PAtient denies N/V, Abdominal pain, changes in gait or vision. Culture: MRSA, E. faecalis PMH: Waldenstrom Macroglobulinemia, atrial fibrillation, chronic hypotension, bed bound CAD, diverticulitis s/p Hartmans' procedure with colostomy, choledocolithiasis with h/o ERCP, chronic back pain 2nd to spinal fractures, right sided heart failure, h/o c diff. PSH: ERCP, Sharpe's procedure FMH: Dad had prostate cancer, and bone marrow disease, brother OA. SHx: Former tobacco, denies alcohol or illicit drug use. Bed bound, son and does ADLs. Past Patient History - Infectious Disease Hx of Infectious Diseases: None - Past Social History Smoking Status: Never Smoked - CARDIAC Hx Cardiac Disorders: Yes Hx Atrial Fibrillation: Yes Hx Congestive Heart Failure: Yes Hx Hypertension: Yes - PULMONARY Hx Chronic Obstructive Pulmonary Disease (COPD): No Other/Comment: on home O2 for low sat - NEUROLOGICAL Hx Transient Ischemic Attacks (TIA): No - HEENT Hx HEENT Problems: No Hx Blind: No Hx Cataracts: No Hx Deafness: No Hx Difficulty Chewing: No Hx Epistaxis: No Hx Glaucoma: No Hx Macular Degeneration: No - RENAL Hx Renal Failure: No - ENDOCRINE/METABOLIC Hx Diabetes Mellitus Type 1: No Hx Diabetes Mellitus Type 2: No - HEMATOLOGICAL/ONCOLOGICAL Hx Blood Transfusions: Yes Hx Blood Transfusion Reaction: No Hx Cancer: Yes (Blood Cancer as per patient) Hx Chemotherapy: Yes - INTEGUMENTARY Hx Dermatological Problems: No Hx Basil Cell: No Hx Eczema: No Hx Melanoma: No Hx Psoriasis: No Hx Squamous Cell: No - MUSCULOSKELETAL/RHEUMATOLOGICAL Hx Back Pain: Yes Hx Falls: Yes - GASTROINTESTINAL Hx Gastrointestinal Disorders: Yes Hx Bowel Surgery: Yes Hx Colostomy: Yes (LUQ) Hx Crohn's Disease: No Hx Diverticulitis: Yes Hx Gall Bladder Disease: No Hx Gastroesophageal Reflux: No Hx Ileostomy: No Hx Liver Failure: No Hx Pancreatitis: No HX Swallowing Problems: No - GENITOURINARY/GYNECOLOGICAL Hx Genitourinary Disorders: No Hx Hematuria: No Hx Incontinence: No Hx Prostate Problems: No Hx Sexually Transmitted Disorders: No Hx Urinary Tract Infection: Yes - PSYCHIATRIC Hx Emotional Abuse: No Hx Physical Abuse: No Hx Substance Use: No - SURGICAL HISTORY Hx Gastric Bypass Surgery: No - ANESTHESIA Hx Anesthesia: Yes Hx Anesthesia Reactions: No Hx Malignant Hyperthermia: No Meds Allergies/Adverse Reactions: Allergies Allergy/AdvReac Type Severity Reaction Status Date / Time No Known Allergies Allergy Verified 05/25/17 15:49 - Medications Medications: Current Medications Acetaminophen (Tylenol 325mg Tab) 975 mg PO ONCE PRN PRN Reason: Fever >100.4 F Last Admin: 05/25/17 16:15 Dose: 975 mg Vancomycin HCl (Vancomycin 1gm) 1 gm in 250 mls @ 167 mls/hr IVPB STAT STA PRN Reason: Protocol Stop: 05/25/17 17:15 Physical Exam - Constitutional Appears: Non-toxic - Head Exam Head Exam: NORMAL INSPECTION - Eye Exam Eye Exam: EOMI, Normal appearance - ENT Exam ENT Exam: Mucous Membranes Moist - Neck Exam Neck exam: Positive for: Full Rom, Normal Inspection - Respiratory Exam Respiratory Exam: NORMAL BREATHING PATTERN - Cardiovascular Exam Cardiovascular Exam: Irregular Rhythm Additional comments: atrial fibrillation - GI/Abdominal Exam GI & Abdominal Exam: Normal Bowel Sounds, Soft. absent: Diminished Bowel Sounds , Firm, Hyperactive Bowel Sounds, Hypoactive Bowel Sounds Additional comments: colostomy - Extremities Exam Extremities exam: Positive for: full ROM - Back Exam Back exam: FULL ROM Additional comments: green, yellow drainage from wound site on back - Skin Skin Exam: Erythema, Normal Color, Warm Additional comments: green, yellow drainage from wound site on back Results - Vital Signs Recent Vital Signs: Last Vital Signs Temp 102.1 F H 05/25/17 16:18 Pulse 120 H 05/25/17 16:18 Resp 18 05/25/17 16:18 BP 104/66 05/25/17 16:18 Pulse Ox 99 05/25/17 16:18 - Labs Result Diagrams: 05/25/17 16:00 05/25/17 16:00 Labs: Laboratory Results - last 24 hr 05/25/17 05/25/17 05/25/17 16:00 16:00 16:00 WBC 1.6 L* D RBC 2.07 L Hgb 6.8 L* Hct 21.9 L MCV 105.8 H MCH 32.9 MCHC 31.1 RDW 17.9 H Plt Count 35 L* MPV 9.9 Gran % 83.3 H Lymph % (Auto) 10.3 L Boyd % (Auto) 6.4 H Eos % (Auto) 0.0 L Baso % (Auto) 0.0 Gran # 1.30 L Lymph # 0.2 L Boyd # 0.1 Eos # 0.0 Baso # 0.00 PT 14.7 H INR 1.36 H APTT 33.2 H pO2 48 VBG pH 7.41 VBG pCO2 63.0 H VBG HCO3 39.9 H VBG Total CO2 41.8 H VBG O2 Sat (Calc) 88.5 H VBG Base Excess 12.4 H VBG Potassium 4.4 Sodium 136.0 Chloride 99.0 Glucose 120 H Lactate 1.0 FiO2 21.0 Potassium Carbon Dioxide Anion Gap BUN Creatinine Est GFR ( Amer) Est GFR (Non-Af Amer) Random Glucose Calcium Phosphorus Magnesium Total Bilirubin AST ALT Alkaline Phosphatase Total Protein Albumin Globulin Albumin/Globulin Ratio Venous Blood Potassium 4.4 05/25/17 16:00 WBC RBC Hgb Hct MCV MCH MCHC RDW Plt Count MPV Gran % Lymph % (Auto) Boyd % (Auto) Eos % (Auto) Baso % (Auto) Gran # Lymph # Boyd # Eos # Baso # PT INR APTT pO2 VBG pH VBG pCO2 VBG HCO3 VBG Total CO2 VBG O2 Sat (Calc) VBG Base Excess VBG Potassium Sodium 137 Chloride 94 L Glucose Lactate FiO2 Potassium 4.3 Carbon Dioxide 35 H Anion Gap 12 BUN 14 Creatinine 0.6 Est GFR ( Amer) > 60 Est GFR (Non-Af Amer) > 60 Random Glucose 115 H Calcium 8.5 Phosphorus 3.8 Magnesium 1.6 L Total Bilirubin 1.4 H AST 19 ALT 10 Alkaline Phosphatase 63 Total Protein 6.5 Albumin 3.0 Globulin 3.6 Albumin/Globulin Ratio 0.8 L Venous Blood Potassium Assessment & Plan - Assessment and Plan (Free Text) Assessment: 51M with septic wound s/p ID [id number] Plan: septic wound treatment IVF wound culture I&D at bedside in ED c/w antibiotics c/w current medical management Tylenol for fevers Gertrudis Eng, DO PGY1 - Date & Time Date: 05/25/17 Time: 17:12
[2017-05-25] MEDS ORDERED: Sodium Chloride 0.9% 1,000 ML IV SCH (17:15)
[2017-05-25] MEDS ORDERED: Lidocaine 1% Inj (20ml) IJ STA (17:27)
--- NOTE | 2017-05-25 17:45 | RAD ---
HISTORY: Sepsis Patient COMPARISON: 05/12/2017. FINDINGS: LUNGS: Again seen is severe pulmonary venous congestion. There is ill-defined airspace disease in the right mid lung. PLEURA: No significant pleural effusion identified, no pneumothorax apparent. CARDIOVASCULAR: There is persistent mild cardiomegaly and prominence of central vasculature. OSSEOUS STRUCTURES: No significant abnormalities. VISUALIZED UPPER ABDOMEN: Normal. OTHER FINDINGS: None. IMPRESSION: Persistent severe pulmonary venous congestion. Ill-defined airspace disease in the right mid lung could represent atelectasis or pneumonia. Follow-up is advised.
[2017-05-25 17:49] LABS: NEUTROPHIL 90 % (50.0-70.0)
[2017-05-25 17:50] LABS: ANISOCYTOSIS SLIGHT; PLATELET ESTIMATE LOW (NORMAL)
[2017-05-25] MEDS ORDERED: Morphine 4 mg/ml ISec IVP STA (18:57)
[2017-05-25] MEDS: Morphine 4 mg/ml ISec IVP PRN ×2 (19:12→23:10)
[2017-05-25] MEDS ORDERED: DAPTOmycin 500 mg Inj (Cubicin) IV SCH (19:30)
[2017-05-25] MEDS ORDERED: Sodium Chloride 0.9% 1,000 ML IV STA (20:34)
[2017-05-25] MEDS ORDERED: HYDROmorphone 0.5 mg/0.5 ml ISec IVP STA (20:46)
--- NOTE | 2017-05-25 21:18 | CP.PCM.CON ---
<Ariel Dominique - Last Filed: 05/25/17 22:03> History of Present Illness - History of Present Illness History of Present Illness: ICU Consult for Dr. Bartlett 51 y/o M with PMH of Waldenstrom's macroglobulinemia on chemotherapy, pancytopenia, Afib not on anticoagulation, Diverticulitis s/p Hartmans' procedure with colostomy, choledocolithiasis, chronic back pain 2nd to spinal fractures, chronic hypotension, CAD, right sided heart failure, and hx of C. Diff presents to the ED for worsening back pain. Pt was admitted to the hospital on 05/12/17 for back abscess and cellulitis. Pt underwent I and D, and was sent home on Doxycycline and Augmentin. Patient finished antibiotics at home. Pt noted to have brownish discharge coming from the wound over the past week. Pt began to develop worsening back pain at the surgical site over the last 3 days. Pt is seen by home nurse every other day who recommended patient come to the hospital because he had a fever. During the past 3 days, patient was found to have increasing fatigue. Denies CP, SOB, N/V/D, dysuria, change in vision, palpitations, recent sick contacts. PMH: Waldenstrom's macroglobulinemia, pancytopenia, Afib, Diverticulitis s/p Hartmans' procedure with colostomy, choledocolithiasis, chronic back pain 2nd to spinal fractures, chronic hypotension,CAD, right sided heart failure, h/o c diff. PSH: ERCP, Hartmans procedure FMH: Father - prostate cancer and bone marrow disease Social Hx: Former tobacco use, denies alcohol or illicit drug use. Pt is bed bound. Allergies: NKDA Medications: Reviewed, as per chart Review of Systems - Review of Systems Review of Systems: 12 point review of systems as per HPI, otherwise negative Past Patient History - Infectious Disease Hx of Infectious Diseases: None - Past Social History Smoking Status: Never Smoked - CARDIAC Hx Cardiac Disorders: Yes Hx Atrial Fibrillation: Yes Hx Congestive Heart Failure: Yes Hx Hypertension: Yes - PULMONARY Hx Chronic Obstructive Pulmonary Disease (COPD): No Other/Comment: on home O2 for low sat - NEUROLOGICAL Hx Transient Ischemic Attacks (TIA): No - HEENT Hx HEENT Problems: No Hx Blind: No Hx Cataracts: No Hx Deafness: No Hx Difficulty Chewing: No Hx Epistaxis: No Hx Glaucoma: No Hx Macular Degeneration: No - RENAL Hx Renal Failure: No - ENDOCRINE/METABOLIC Hx Diabetes Mellitus Type 1: No Hx Diabetes Mellitus Type 2: No - HEMATOLOGICAL/ONCOLOGICAL Hx Blood Transfusions: Yes Hx Blood Transfusion Reaction: No Hx Cancer: Yes (Blood Cancer as per patient) Hx Chemotherapy: Yes - INTEGUMENTARY Hx Dermatological Problems: No Hx Basil Cell: No Hx Eczema: No Hx Melanoma: No Hx Psoriasis: No Hx Squamous Cell: No - MUSCULOSKELETAL/RHEUMATOLOGICAL Hx Back Pain: Yes Hx Falls: Yes - GASTROINTESTINAL Hx Gastrointestinal Disorders: Yes Hx Bowel Surgery: Yes Hx Colostomy: Yes (LUQ) Hx Crohn's Disease: No Hx Diverticulitis: Yes Hx Gall Bladder Disease: No Hx Gastroesophageal Reflux: No Hx Ileostomy: No Hx Liver Failure: No Hx Pancreatitis: No HX Swallowing Problems: No - GENITOURINARY/GYNECOLOGICAL Hx Genitourinary Disorders: No Hx Hematuria: No Hx Incontinence: No Hx Prostate Problems: No Hx Sexually Transmitted Disorders: No Hx Urinary Tract Infection: Yes - PSYCHIATRIC Hx Emotional Abuse: No Hx Physical Abuse: No Hx Substance Use: No - SURGICAL HISTORY Hx Gastric Bypass Surgery: No - ANESTHESIA Hx Anesthesia: Yes Hx Anesthesia Reactions: No Hx Malignant Hyperthermia: No Meds Allergies/Adverse Reactions: Allergies Allergy/AdvReac Type Severity Reaction Status Date / Time No Known Allergies Allergy Verified 05/25/17 15:49 - Medications Medications: Current Medications Acetaminophen (Tylenol 325mg Tab) 975 mg PO ONCE PRN PRN Reason: Fever >100.4 F Last Admin: 05/25/17 16:15 Dose: 975 mg Carvedilol (Coreg) 3.125 mg PO BID [facility] Last Admin: 05/25/17 19:12 Dose: Not Given Clonazepam (Klonopin) 0.5 mg PO TID PRN; Protocol PRN Reason: Agitation Digoxin (Lanoxin) 0.125 mg PO 1400 [facility] Diltiazem HCl (Cardizem Cd) 180 mg PO DAILY [facility] Daptomycin 490 mg/ Sodium (Chloride) 100 mls @ 200 mls/hr IV Q24H [facility] Stop: 06/01/17 19:31 Sodium Chloride (Sodium Chloride 0.9%) 1,000 mls @ 1,000 mls/hr IV .Q1H [facility] Stop: 05/25/17 21:33 Sodium Chloride (Sodium Chloride 0.9%) 1,000 mls @ 100 mls/hr IV .Q10H [facility] Morphine Sulfate (Morphine) 3 mg IVP Q3 PRN PRN Reason: Pain, moderate (4-7) Last Admin: 05/25/17 19:12 Dose: 3 mg Morphine Sulfate (Morphine Extended Release Tab) 15 mg PO Q12 [facility] Sennosides (Senokot Tab) 8.6 mg PO DAILY [facility] Last Admin: 05/25/17 19:12 Dose: Not Given Physical Exam - Constitutional Appears: Non-toxic, No Acute Distress - Head Exam Head Exam: ATRAUMATIC, NORMAL INSPECTION, NORMOCEPHALIC - Eye Exam Eye Exam: EOMI, Normal appearance - ENT Exam ENT Exam: Mucous Membranes Moist, Normal Exam - Neck Exam Neck exam: Positive for: Normal Inspection. Negative for: Lymphadenopathy - Respiratory Exam Respiratory Exam: Clear to Auscultation Bilateral, NORMAL BREATHING PATTERN - Cardiovascular Exam Cardiovascular Exam: Tachycardia, +S1, +S2 - GI/Abdominal Exam GI & Abdominal Exam: Normal Bowel Sounds, Soft. absent: Tenderness Additional comments: Colostomy clean and nontender - Extremities Exam Extremities exam: Positive for: normal inspection, pedal edema. Negative for: calf tenderness - Back Exam Additional comments: Surgical wound site packed and dressed. No drainage appreciated - Neurological Exam Neurological exam: Alert, CN II-XII Intact, Oriented x3 - Psychiatric Exam Psychiatric exam: Normal Affect, Normal Mood - Skin Skin Exam: Urticaria, Warm Results - Vital Signs Recent Vital Signs: Last Vital Signs Temp 99.2 F 05/25/17 20:54 Pulse 109 H 05/25/17 20:54 Resp 16 05/25/17 20:54 BP 88/62 L 05/25/17 20:54 Pulse Ox 99 05/25/17 16:18 - Labs Result Diagrams: 05/25/17 16:00 05/25/17 16:00 Assessment & Plan - Assessment and Plan (Free Text) Plan: 51 y/o M with PMH of Waldenstrom's macroglobulinemia on chemotherapy, pancytopenia, Afib not on anticoagulation, Diverticulitis s/p Hartmans' procedure with colostomy, choledocolithiasis, chronic back pain 2nd to spinal fractures, chronic hypotension, CAD, right sided heart failure, and hx of C. Diff presents with severe sepsis likely secondary back abscess. Pt is known to be pancytopenic and anemia is below baseline at this time. In addition, pt is hypotensive, but also near baseline. Pt is currently receiving 1 unit of PRBCs along with 2 L of NS. Lactate was found to be 1, indicating no acute ischemia at this time. Patient does not meet criteria for ICU admission. It is recommended patient receive aggressive fluid hydration for hypotension and blood products to maintain Hg greater than 7, which will also assist in maintaining normotension. Pt should have wound cultured and continue IV antibiotics along with home medications. Catina, PGY-2 <Jonn Bartlett Q - Last Filed: 05/26/17 00:05> Meds - Medications Medications: Current Medications Acetaminophen (Tylenol 325mg Tab) 975 mg PO ONCE PRN PRN Reason: Fever >100.4 F Last Admin: 05/25/17 16:15 Dose: 975 mg Carvedilol (Coreg) 3.125 mg PO BID [facility] Last Admin: 05/25/17 19:12 Dose: Not Given Clonazepam (Klonopin) 0.5 mg PO TID PRN; Protocol PRN Reason: Agitation Digoxin (Lanoxin) 0.125 mg PO 1400 [facility] Diltiazem HCl (Cardizem Cd) 180 mg PO DAILY [facility] Daptomycin 490 mg/ Sodium (Chloride) 100 mls @ 200 mls/hr IV Q24H [facility] Stop: 06/01/17 19:31 Sodium Chloride (Sodium Chloride 0.9%) 1,000 mls @ 100 mls/hr IV .Q10H [facility] Last Admin: 05/25/17 22:41 Dose: 100 mls/hr Morphine Sulfate (Morphine) 3 mg IVP Q3 PRN PRN Reason: Pain, moderate (4-7) Last Admin: 05/25/17 23:10 Dose: 3 mg Morphine Sulfate (Morphine Extended Release Tab) 15 mg PO Q12 [facility] Last Admin: 05/25/17 22:31 Dose: Not Given Sennosides (Senokot Tab) 8.6 mg PO DAILY [facility] Last Admin: 05/25/17 19:12 Dose: Not Given Physical Exam - Cardiovascular Exam Cardiovascular Exam: Systolic Murmur (+ 3-4/6 holosystolic murmur) Results - Vital Signs Recent Vital Signs: Last Vital Signs Temp 100.3 F H 05/25/17 23:23 Pulse 109 H 05/25/17 23:23 Resp 16 05/25/17 23:23 BP 89/60 L 05/25/17 23:23 Pulse Ox 99 05/25/17 18:56 - Labs Result Diagrams: 05/25/17 16:00 05/25/17 16:00 Labs: Laboratory Results - last 24 hr 05/25/17 05/25/17 21:27 23:20 Lactic Acid 1.0 Urine Color Yellow Urine Appearance Clear Urine pH 6.0 Ur Specific [place] 1.020 Urine Protein Trace H Urine Glucose (UA) Negative Urine Ketones Negative Urine Blood Negative Urine Nitrate Negative Urine Bilirubin Negative Urine Urobilinogen 0.2 Ur Leukocyte Esterase Negative Attending/Attestation - Attestation I have personally seen and examined this patient.: Yes I have fully participated in the care of the patient.: Yes I have reviewed all pertinent clinical information: Yes Notes (Text): 05/25/17 23:48 I agree with the above mentioned note and exam performed by the resident with the addition/exception of the followin51 y/o male with a PMHx as stated above presented to the ED approximately 2 weeks after an I&D of a back abscess. Patient was febrile and treated with IV Abx and IV fluids; seen by Surgery who performed a bedside I&D along with packing of his abscess. ED Physician Dr. Melendez requested an ICU Evaluation due to a SBP reading in the 80's while in the emergency room. Patient was evaluated and found to have a normal lactate level, mentation was AAOx3 and he did not show any clinical signs of hypoperfusion. Patient is noted to have RHF (RVSP 76 on an echo earlier this year) and was otherwise hemodynamically stable. He is suitable for the telemetry floor at this time, in the event that his condition worsens or deteriorates, I will be available in-house until 7am for re-evaluation as needed.
--- NOTE | 2017-05-25 21:21 | CP.PCM.PN ---
Subjective - Date & Time of Evaluation Date of Evaluation: 05/25/17 Time of Evaluation: 20:15 - Subjective Subjective: 51M w/ back abscess, consented for incision and drainage. Objective - Vital Signs/Intake and Output Vital Signs (last 24 hours): Temp Pulse Resp BP Pulse Ox 99.2 F 109 H 16 88/62 L 99 05/25/17 20:54 05/25/17 20:54 05/25/17 20:54 05/25/17 20:54 05/25/17 16:18 Intake and Output: 05/25/17 05/26/17 18:59 06:59 Intake Total 0 Balance 0 - Medications Medications: Current Medications Acetaminophen (Tylenol 325mg Tab) 975 mg PO ONCE PRN PRN Reason: Fever >100.4 F Last Admin: 05/25/17 16:15 Dose: 975 mg Carvedilol (Coreg) 3.125 mg PO BID [facility] Last Admin: 05/25/17 19:12 Dose: Not Given Clonazepam (Klonopin) 0.5 mg PO TID PRN; Protocol PRN Reason: Agitation Digoxin (Lanoxin) 0.125 mg PO 1400 [facility] Diltiazem HCl (Cardizem Cd) 180 mg PO DAILY [facility] Daptomycin 490 mg/ Sodium (Chloride) 100 mls @ 200 mls/hr IV Q24H [facility] Stop: 06/01/17 19:31 Sodium Chloride (Sodium Chloride 0.9%) 1,000 mls @ 1,000 mls/hr IV .Q1H [facility] Stop: 05/25/17 21:33 Sodium Chloride (Sodium Chloride 0.9%) 1,000 mls @ 100 mls/hr IV .Q10H [facility] Morphine Sulfate (Morphine) 3 mg IVP Q3 PRN PRN Reason: Pain, moderate (4-7) Last Admin: 05/25/17 19:12 Dose: 3 mg Morphine Sulfate (Morphine Extended Release Tab) 15 mg PO Q12 [facility] Sennosides (Senokot Tab) 8.6 mg PO DAILY [facility] Last Admin: 05/25/17 19:12 Dose: Not Given - Labs Labs: PT 14.7 Seconds (9.9-11.8) H 05/25/17 16:00 INR 1.36 (0.93-1.08) H 05/25/17 16:00 APTT 33.2 Seconds (23.7-30.8) H 05/25/17 16:00 - Incision & Drainage Of Abscess Anesthesia: Lidocaine 1% Used During Procedure: Continuous Pulse Oximetry, Product Distribution Specialist, Oxygen Prep Used: Betadine Procedure: Incised W/Scalpel Blade#: ([id number]), Drained Pus, Irrigated Cavity W/ Saline, Probed To Break Up Loculations, Packed W/Gauze, Cultures Obtained And Sent To Lab
[2017-05-25] MEDS ORDERED: Morphine 15 mg SR Tab PO SCH (22:00)
[2017-05-25] MEDS: Sodium Chloride 0.9% 1,000 ML IV SCH (22:41)
--- NOTE | 2017-05-25 22:51 | CARD ---
APPROVED REPORT EKG Measurement Heart [id number] <Conclusion> Atrial fibrillation with rapid ventricular response Low voltage QRS Septal infarct, age undetermined Abnormal ECG
[2017-05-25 23:46] LABS: URINE APPEARANCE CLEAR (CLEAR); URINE BILIRUBIN NEGATIVE (NEGATIVE); URINE BLOOD NEGATIVE (NEGATIVE); URINE COLOR YELLOW (YELLOW); URINE GLUCOSE (UA) NEGATIVE (NEGATIVE); URINE KETONE NEGATIVE (NEGATIVE); URINE LEUKOCYTE ESTERASE NEGATIVE Leu/uL (NEGATIVE); URINE PROTEIN TRACE mg/dL (<30 mg/dL); URINE UROBILINOGEN 0.2 E.U./dL (<1 E.U./dL)
[2017-05-26 00:04] LABS: URINE EPITHELIAL CELLS 0 - 2 /hpf (0-5); URINE RBC 0 - 2 /hpf (0-2); URINE WBC 0 - 2 /hpf (0-6)
--- NOTE | 2017-05-26 00:54 | CP.PCM.PN ---
Subjective - Date & Time of Evaluation Date of Evaluation: 05/26/17 Time of Evaluation: 00:52 - Subjective Subjective: draft Hgb 6.8 received i unit prbc Temp: 100.3*F-->100.7*F Hx Waldenstorm macroglobulinemia. Rx, Tylenol 975 mg PO x1. Objective - Vital Signs/Intake and Output Vital Signs (last 24 hours): Temp Pulse Resp BP Pulse Ox 100.3 F H 109 H 16 89/60 L 99 05/25/17 23:23 05/25/17 23:23 05/25/17 23:23 05/25/17 23:23 05/25/17 18:56 Intake and Output: 05/25/17 05/26/17 18:59 06:59 Intake Total 325 Balance 325 - Medications Medications: Current Medications Acetaminophen (Tylenol 325mg Tab) 975 mg PO ONCE PRN PRN Reason: Fever >100.4 F Last Admin: 05/25/17 16:15 Dose: 975 mg Acetaminophen (Tylenol 325mg Tab) 650 mg PO STAT [facility] Stop: 05/26/17 00:52 Carvedilol (Coreg) 3.125 mg PO BID [facility] Last Admin: 05/25/17 19:12 Dose: Not Given Clonazepam (Klonopin) 0.5 mg PO TID PRN; Protocol PRN Reason: Agitation Digoxin (Lanoxin) 0.125 mg PO 1400 [facility] Diltiazem HCl (Cardizem Cd) 180 mg PO DAILY [facility] Daptomycin 490 mg/ Sodium (Chloride) 100 mls @ 200 mls/hr IV Q24H [facility] Stop: 06/01/17 19:31 Last Admin: 05/25/17 23:55 Dose: 200 mls/hr Sodium Chloride (Sodium Chloride 0.9%) 1,000 mls @ 100 mls/hr IV .Q10H [facility] Last Admin: 05/25/17 22:41 Dose: 100 mls/hr Morphine Sulfate (Morphine) 3 mg IVP Q3 PRN PRN Reason: Pain, moderate (4-7) Last Admin: 05/25/17 23:10 Dose: 3 mg Morphine Sulfate (Morphine Extended Release Tab) 15 mg PO Q12 [facility] Last Admin: 05/25/17 22:31 Dose: Not Given Sennosides (Senokot Tab) 8.6 mg PO DAILY [facility] Last Admin: 05/25/17 19:12 Dose: Not Given - Labs Labs: PT 14.7 Seconds (9.9-11.8) H 05/25/17 16:00 INR 1.36 (0.93-1.08) H 05/25/17 16:00 APTT 33.2 Seconds (23.7-30.8) H 05/25/17 16:00
[2017-05-26] MEDS: Morphine 4 mg/ml ISec IVP PRN ×5 (02:02→22:50)
[2017-05-26 07:00] LABS: GRAN # 0.86 (1.4-6.5); GRAN % 83.4 % (50.0-68.0); LYMPH # 0.1 (1.2-3.4); LYMPH % 11.7 % (22.0-35.0); MEAN CELL VOLUME 103.1 fl (80.0-105.0); MEAN CORPUSCULAR HEMOGLOBIN 32.7 pg (25.0-35.0); MEAN CORPUSCULAR HGB CONC 31.7 g/dl (31.0-37.0); MEAN PLATELET VOLUME 10.6 fl (7.0-11.0); MONO % 3.9 % (1.0-6.0); RED CELL DISTRIBUTION WIDTH 19.9 % (11.5-14.5)
[2017-05-26 07:08] LABS: HEMATOCRIT 20.2 % (42.0-52.0)
[2017-05-26 07:09] LABS: PLATELET COUNT 25 10^3/uL (120.0-450.0)
[2017-05-26] MEDS ORDERED: Morphine 2 mg/ml ISec IVP STA (07:15)
[2017-05-26 07:17] LABS: ALB/GLOB RATIO 0.8 (1.1-1.8); ALKALINE PHOSPHATASE 51 U/L (38-126); ALT/SGPT 27 U/L (7-56); AST/SGOT 15 U/L (17-59); BILIRUBIN,TOTAL 1.5 mg/dL (0.2-1.3); BLOOD UREA NITROGEN 13 mg/dL (7-21); CALCIUM 7.8 mg/dL (8.4-10.5); CARBON DIOXIDE 31 mmol/L (21-33); CHLORIDE 100 mmol/L (98-107); GFR AFRICAN-AMERICAN > 60; GLUCOSE,RANDOM 106 mg/dL (70-110); SODIUM 137 mmol/L (132-148); TOTAL PROTEIN 5.8 g/dL (5.8-8.3)
--- NOTE | 2017-05-26 07:26 | CP.PCM.PN ---
Subjective - Date & Time of Evaluation Date of Evaluation: 05/26/17 Time of Evaluation: 07:23 - Subjective Subjective: Progress Note for Dr. Mas Dressing changed at bedside with packing. Patient states he's not tolerating pain well. per nursing, 3mg Morphine Delivered at 6am (ordered for Q3H PRN). Patient denies F/C/N/V. This morning's critical value WBC: 1.0 Hgb: 6.4 from 6.8 after 1 unit PRBC overnight Hct: 20.2 Plt: 25 Objective - Vital Signs/Intake and Output Vital Signs (last 24 hours): Temp Pulse Resp BP Pulse Ox 98.5 F 111 H 20 94/58 L 97 05/26/17 06:00 05/26/17 06:00 05/26/17 06:00 05/26/17 06:00 05/26/17 06:00 Intake and Output: 05/26/17 05/26/17 06:59 18:59 Intake Total 1810 Output Total 500 Balance 1310 - Medications Medications: Current Medications Acetaminophen (Tylenol 325mg Tab) 975 mg PO ONCE PRN PRN Reason: Fever >100.4 F Last Admin: 05/25/17 16:15 Dose: 975 mg Carvedilol (Coreg) 3.125 mg PO BID [facility] Last Admin: 05/25/17 19:12 Dose: Not Given Clonazepam (Klonopin) 0.5 mg PO TID PRN; Protocol PRN Reason: Agitation Digoxin (Lanoxin) 0.125 mg PO 1400 [facility] Diltiazem HCl (Cardizem Cd) 180 mg PO DAILY [facility] Daptomycin 490 mg/ Sodium (Chloride) 100 mls @ 200 mls/hr IV Q24H [facility] Stop: 06/01/17 19:31 Last Admin: 05/25/17 23:55 Dose: 200 mls/hr Sodium Chloride (Sodium Chloride 0.9%) 1,000 mls @ 100 mls/hr IV .Q10H [facility] Last Admin: 05/25/17 22:41 Dose: 100 mls/hr Morphine Sulfate (Morphine) 3 mg IVP Q3 PRN PRN Reason: Pain, moderate (4-7) Last Admin: 05/26/17 06:20 Dose: 3 mg Morphine Sulfate (Morphine Extended Release Tab) 15 mg PO Q12 [facility] Last Admin: 05/25/17 22:31 Dose: Not Given Sennosides (Senokot Tab) 8.6 mg PO DAILY [facility] Last Admin: 05/25/17 19:12 Dose: Not Given - Labs Labs: 05/26/17 06:20 PT 14.7 Seconds (9.9-11.8) H 05/25/17 16:00 INR 1.36 (0.93-1.08) H 05/25/17 16:00 APTT 33.2 Seconds (23.7-30.8) H 05/25/17 16:00 - Constitutional Appears: Unkempt, Older Than Stated Age - Head Exam Head Exam: NORMAL INSPECTION - Eye Exam Eye Exam: EOMI, Normal appearance - ENT Exam ENT Exam: Mucous Membranes Moist - Respiratory Exam Respiratory Exam: Clear to Ausculation Bilateral. absent: Accessory Muscle Use , Respiratory Distress - Cardiovascular Exam Cardiovascular Exam: Tachycardia - GI/Abdominal Exam GI & Abdominal Exam: Normal Bowel Sounds. absent: Diminished Bowel Sounds - Extremities Exam Extremities Exam: Normal Inspection. absent: Pedal Edema - Back Exam Back Exam: vertebral tenderness Additional comments: Incision and drainage site with iodoform packing. packing changed at bedside. no change since yesterday's packing. - Psychiatric Exam Psychiatric exam: Flat Affect Additional comments: patient asked for pain meds - Skin Skin Exam: Pallor Assessment and Plan - Assessment and Plan (Free Text) Assessment: 51M presents with worsening abscess/ wound. PMH:Waldenstrom Macroglobulinemai, a -fib, chronic hypotension, right sided heart failure. Plan: I&D POD#0 f/u H/H Patient has history of chronic hypotension and right sided heart failure will follow with medicine team for recommendations for IVF infectious disease management septic wound treatment IVF wound culture I&D at bedside in ED, dressing changes at bedside with iodoform packing Pain: Morphine 3mg Q3H PRN c/w antibiotics c/w current medical management Tylenol for fevers Gertrudis Mendez DO PGY1
[2017-05-26 08:42] LABS: PLATELET ESTIMATE LOW (NORMAL)
[2017-05-26] MEDS: Morphine 30 mg SR Tab PO SCH ×2 (11:05→22:37)
[2017-05-26] MEDS: diltiaZEM 180 mg/24 Hours CD Cap PO SCH (11:11)
[2017-05-26] MEDS: Sodium Chloride 0.9% 1,000 ML IV SCH (11:12)
[2017-05-26] MEDS: Piperacill/Tazo 4.5gm in NS 4.5 GM/100 ML BAG IVPB SCH (12:33)
--- NOTE | 2017-05-26 14:20 | CP.PCM.CON ---
History of Present Illness - History of Present Illness History of Present Illness: 51 year old male with PMH of Waldenstrom's Macroglobinemia currently on chemotherapy, atrial fibrillation on anticoagulation, history of diverticulitis S/P Sharpe's procedure, history of stoma skin infection, history of vertebral compression fractures was recently admitted for posterior thoracic abscess which was drained by surgery and grew MRSA and E. faecalis. He was kept on antibiotics and was sent home but the drainage from the back recurred and he developed fevers as well. He has generalized weakness as well. He denies headache or dizziness, no chest pain, no SOB, no abdominal pain, no diarrhea, no dysuria, no chest pain, no SOB. I and D has been done yesterday by Surgery. Infectious Diseases consult is requested to further evaluate and manage. Review of Systems - Review of Systems All systems: reviewed and no additional remarkable complaints except (as per HPI ) Past Patient History - Infectious Disease Hx of Infectious Diseases: None - Past Social History Smoking Status: Never Smoked - CARDIAC Hx Cardiac Disorders: Yes Hx Atrial Fibrillation: Yes Hx Congestive Heart Failure: Yes Hx Hypertension: Yes - PULMONARY Hx Chronic Obstructive Pulmonary Disease (COPD): No Other/Comment: on home O2 for low sat - NEUROLOGICAL Hx Transient Ischemic Attacks (TIA): No - HEENT Hx HEENT Problems: No Hx Blind: No Hx Cataracts: No Hx Deafness: No Hx Difficulty Chewing: No Hx Epistaxis: No Hx Glaucoma: No Hx Macular Degeneration: No - RENAL Hx Renal Failure: No - ENDOCRINE/METABOLIC Hx Diabetes Mellitus Type 1: No Hx Diabetes Mellitus Type 2: No - HEMATOLOGICAL/ONCOLOGICAL Hx Blood Transfusions: Yes Hx Blood Transfusion Reaction: No Hx Cancer: Yes (Blood Cancer as per patient) Hx Chemotherapy: Yes - INTEGUMENTARY Hx Dermatological Problems: No Hx Basil Cell: No Hx Eczema: No Hx Melanoma: No Hx Psoriasis: No Hx Squamous Cell: No - MUSCULOSKELETAL/RHEUMATOLOGICAL Hx Back Pain: Yes Hx Falls: Yes - GASTROINTESTINAL Hx Gastrointestinal Disorders: Yes Hx Bowel Surgery: Yes Hx Colostomy: Yes (LUQ) Hx Crohn's Disease: No Hx Diverticulitis: Yes Hx Gall Bladder Disease: No Hx Gastroesophageal Reflux: No Hx Ileostomy: No Hx Liver Failure: No Hx Pancreatitis: No HX Swallowing Problems: No - GENITOURINARY/GYNECOLOGICAL Hx Genitourinary Disorders: No Hx Hematuria: No Hx Incontinence: No Hx Prostate Problems: No Hx Sexually Transmitted Disorders: No Hx Urinary Tract Infection: Yes - PSYCHIATRIC Hx Emotional Abuse: No Hx Physical Abuse: No Hx Substance Use: No - SURGICAL HISTORY Hx Gastric Bypass Surgery: No - ANESTHESIA Hx Anesthesia: Yes Hx Anesthesia Reactions: No Hx Malignant Hyperthermia: No Meds Allergies/Adverse Reactions: Allergies Allergy/AdvReac Type Severity Reaction Status Date / Time No Known Allergies Allergy Verified 05/25/17 15:49 - Medications Medications: Current Medications Acetaminophen (Tylenol 325mg Tab) 975 mg PO ONCE PRN PRN Reason: Fever >100.4 F Last Admin: 05/25/17 16:15 Dose: 975 mg Carvedilol (Coreg) 3.125 mg PO BID [facility] Last Admin: 05/25/17 19:12 Dose: Not Given Clonazepam (Klonopin) 0.5 mg PO TID PRN; Protocol PRN Reason: Agitation Digoxin (Lanoxin) 0.125 mg PO 1400 [facility] Diltiazem HCl (Cardizem Cd) 180 mg PO DAILY [facility] Morphine Sulfate (Morphine) 3 mg IVP Q3 PRN PRN Reason: Pain, moderate (4-7) Last Admin: 05/25/17 19:12 Dose: 3 mg Morphine Sulfate (Morphine Extended Release Tab) 15 mg PO Q12 [facility] Sennosides (Senokot Tab) 8.6 mg PO DAILY [facility] Last Admin: 05/25/17 19:12 Dose: Not Given Physical Exam - Constitutional Appears: Non-toxic, No Acute Distress - Head Exam Head Exam: NORMAL INSPECTION - ENT Exam ENT Exam: Mucous Membranes Moist - Neck Exam Neck exam: Negative for: Lymphadenopathy, Meningismus - Respiratory Exam Respiratory Exam: Decreased Breath Sounds - Cardiovascular Exam Cardiovascular Exam: +S1, +S2 - GI/Abdominal Exam GI & Abdominal Exam: Soft. absent: Tenderness Results - Vital Signs Recent Vital Signs: Last Vital Signs Temp 102.1 F H 05/25/17 16:18 Pulse 120 H 05/25/17 16:18 Resp 18 05/25/17 16:18 BP 104/66 05/25/17 16:18 Pulse Ox 99 05/25/17 16:18 - Labs Result Diagrams: 05/26/17 06:20 05/26/17 06:20 Assessment & Plan - Assessment and Plan (Free Text) Plan: assessment sepsis due to thoracic area soft tissue infection (recurrence) - should rule out vertebral osteomyelitis; previously the abscess had MRSA and E. faecalis history of C. diff associated diarrhea Leukopenia without fever, probably related to his Waldenstrom's macroglobulinemia history of intra-abdominal infection/colitis history of Acute sigmoid diverticulitis with abscess formation S/P resection and colostomy placement Waldenstrom's Macroglobinemia currently on chemotherapy atrial fibrillation on anticoagulation Plan started patient on Daptomycin (the MRSA Vanco DYANA from the previous culture had an DYANA of 1, and this may be problematic for Vancomycin) and Zosyn pending blood cx and wound cx (I and D was done yesterday) would suggest MRI of thoracic spine when feasible - if patient refuses, should consider CT scan of the thoracic spine will monitor clinically
[2017-05-26] MEDS: Digoxin 125 mcg (0.125 mg) Tab PO SCH (17:22)
[2017-05-27] MEDS: Piperacill/Tazo 4.5gm in NS 4.5 GM/100 ML BAG IVPB SCH ×4 (00:34→18:09)
--- NOTE | 2017-05-27 00:47 | HP ---
DATE OF EVALUATION: 05/25/2017 HISTORY OF PRESENT ILLNESS: Mrs. Garcia is a 51-year-old male with complicated medical history. He was recently discharged from the hospital when he had a paraspinal abscess drained by surgery. He has a history of Waldenstrom's macroglobulinemia on oral chemotherapy from [facility]. He has recurrent infections. He has pancytopenia, requiring frequent blood transfusions. Admitted with back pain and fever. Wound culture from the back showed MRSA and E. faecalis. He also has history of COPD. Hemoglobin was 6.4 . PAST MEDICAL HISTORY: Atrial fibrillation, congestive cardiac failure, hypertension, COPD, history of TIA, Waldenstrom's macroglobulinemia, recurrent blood transfusions, multiple bowel surgeries, colostomy, diverticulitis. PAST SURGICAL HISTORY: None. PERSONAL HISTORY: Never smoked. No history of alcohol abuse. ALLERGIES: NO KNOWN DRUG ALLERGIES. REVIEW OF SYSTEMS: As per HPI. Rest of 12-point review of systems reviewed and negative. PHYSICAL EXAMINATION: GENERAL: He is bed bound. Mild distress due to back pain. VITAL SIGNS: Temperature 99, heart rate is 100 per minute, respiratory rate 17 per minute, blood pressure 104/66, and pulse oximetry is 100% on room air. HEENT: Pallor positive. NECK: No lymphadenopathy. CHEST: Air entry present equal and bilateral. CARDIOVASCULAR: S1 and S2 normal. No murmur, no gallop. ABDOMEN: Soft. Nontender. No hepatosplenomegaly. EXTREMITIES: No edema. ACCOUNT COLLECTOR: Alert and oriented x3. No focal sensory or motor deficits. LABORATORY DATA: White count 1.6, hemoglobin 6.8, hematocrit 21.9 and platelet count 35,000. Sodium 137, potassium 4.3, BUN 14, creatinine 0.6, glucose 115. ASSESSMENT AND PLAN: He will be admitted to the hospital, 2 units of blood transfusion. ID consultation with Dr. Luna requested. IV antibiotics, daptomycin and Zosyn started. Pain controlled with morphine sulfate 20 mg p.o. b.i.d., IV morphine 4 mg IV q. 4 hours p.r.n. for pain. Continue cardiac medication, Digoxin 0.125 mg daily, Cardizem 180 mg daily. Klonopin 0.5 mg p.o. t.i.d., Coreg 3.125 mg p.o. b.i.d., Tylenol 650 q. 6 hours p.r.n. for fever. Senna and Colace. IV fluid at 100 mL an hour. Labs ordered for tomorrow. Nancy Ward MD ANIRUD[facility]
[2017-05-27] MEDS: Morphine 4 mg/ml ISec IVP PRN ×4 (02:52→15:33)
[2017-05-27] MEDS: Sodium Chloride 0.9% 1,000 ML IV SCH (06:25)
[2017-05-27 07:14] LABS: EOS % 1.4 % (1.5-5.0); GRAN # 0.61 (1.4-6.5); GRAN % 82.3 % (50.0-68.0); LYMPH # 0.1 (1.2-3.4); LYMPH % 12.2 % (22.0-35.0); MEAN CELL VOLUME 101.5 fl (80.0-105.0); MEAN CORPUSCULAR HGB CONC 31.6 g/dl (31.0-37.0); MEAN PLATELET VOLUME 10.6 fl (7.0-11.0); MONO % 4.1 % (1.0-6.0); RED CELL DISTRIBUTION WIDTH 20.8 % (11.5-14.5)
[2017-05-27 07:34] LABS: BLOOD UREA NITROGEN 12 mg/dL (7-21); CARBON DIOXIDE 34 mmol/L (21-33); CHLORIDE 100 mmol/L (98-107); GFR AFRICAN-AMERICAN > 60; GLUCOSE,RANDOM 98 mg/dL (70-110); POTASSIUM 3.8 mmol/L (3.6-5.0); SODIUM 138 mmol/L (132-148)
[2017-05-27 07:51] LABS: WHITE BLOOD COUNT 0.7 10^3/ul (4.5-11.0)
[2017-05-27 07:52] LABS: HEMATOCRIT 20.6 % (42.0-52.0); PLATELET COUNT 25 10^3/uL (120.0-450.0)
--- NOTE | 2017-05-27 09:57 | CP.PCM.PN ---
Subjective - Date & Time of Evaluation Date of Evaluation: 05/27/17 Time of Evaluation: 09:54 - Subjective Subjective: General Surgery progress note for Dr. Mas Patient seen and examined at bedside. Patient states he feels the same. Dressings were changed at bedside with shortening of the iodoform packing. Patient tolerated dressing changes better than yesterday. Dressing with xeroform was added to Stage 1 ulcer at intergluteal cleft. Patient denies N/V, F/C. Patient refused to be repositioned yesterday. Nurses stated no gel pads are in the hospital. Blood cultures positive for: gram pos cocci. Objective - Vital Signs/Intake and Output Vital Signs (last 24 hours): Temp Pulse Resp BP Pulse Ox 98.0 F 101 H 20 81/55 L 98 05/27/17 06:00 05/27/17 06:00 05/27/17 06:00 05/27/17 06:00 05/27/17 06:00 Intake and Output: 05/27/17 05/27/17 06:59 18:59 Intake Total 325 Output Total 690 Balance -365 - Medications Medications: Current Medications Acetaminophen (Tylenol 325mg Tab) 975 mg PO ONCE PRN PRN Reason: Fever >100.4 F Last Admin: 05/25/17 16:15 Dose: 975 mg Acetaminophen (Tylenol 325mg Tab) 650 mg PO Q6H PRN PRN Reason: Fever >100.4 F Last Admin: 05/26/17 17:23 Dose: 650 mg Carvedilol (Coreg) 3.125 mg PO BID [facility] Last Admin: 05/26/17 17:21 Dose: Not Given Clonazepam (Klonopin) 0.5 mg PO TID PRN; Protocol PRN Reason: Agitation Digoxin (Lanoxin) 0.125 mg PO 1400 [facility] Last Admin: 05/26/17 17:22 Dose: 0.125 mg Diltiazem HCl (Cardizem Cd) 180 mg PO DAILY [facility] Last Admin: 05/26/17 11:11 Dose: Not Given Daptomycin 490 mg/ Sodium (Chloride) 100 mls @ 200 mls/hr IV Q24H [facility] Stop: 06/01/17 19:31 Last Admin: 05/26/17 22:28 Dose: 200 mls/hr Sodium Chloride (Sodium Chloride 0.9%) 1,000 mls @ 100 mls/hr IV .Q10H [facility] Last Admin: 05/27/17 06:25 Dose: 100 mls/hr Piperacillin Sod/Tazobactam Sod (Zosyn 4.5 Gm In Ns 100ml) 4.5 gm in 100 mls @ 200 mls/hr IVPB Q6 [facility] PRN Reason: Protocol Stop: 06/02/17 12:01 Last Admin: 05/27/17 06:24 Dose: 200 mls/hr Morphine Sulfate (Morphine Extended Release Tab) 30 mg PO Q12 [facility] Last Admin: 05/26/17 22:37 Dose: 30 mg Morphine Sulfate (Morphine) 4 mg IVP Q4H PRN PRN Reason: Pain, moderate (4-7) Last Admin: 05/27/17 07:08 Dose: 4 mg Sennosides (Senokot Tab) 8.6 mg PO DAILY [facility] Last Admin: 05/26/17 11:06 Dose: 8.6 mg - Labs Labs: 05/27/17 06:15 05/27/17 06:15 PT 14.7 Seconds (9.9-11.8) H 05/25/17 16:00 INR 1.36 (0.93-1.08) H 05/25/17 16:00 APTT 33.2 Seconds (23.7-30.8) H 05/25/17 16:00 - Constitutional Appears: Older Than Stated Age, Chronically Ill - Head Exam Head Exam: NORMAL INSPECTION - Eye Exam Eye Exam: EOMI, Normal appearance - ENT Exam ENT Exam: Mucous Membranes Moist - Neck Exam Neck Exam: Full ROM, Normal Inspection - Respiratory Exam Respiratory Exam: NORMAL BREATHING PATTERN. absent: Accessory Muscle Use, Respiratory Distress - Cardiovascular Exam Cardiovascular Exam: Irregular Rhythm, +S1, +S2 - GI/Abdominal Exam GI & Abdominal Exam: Soft, Normal Bowel Sounds. absent: Tenderness Additional comments: colostomy patent, pink with bag covering - Extremities Exam Extremities Exam: absent: Pedal Edema - Neurological Exam Neurological Exam: Alert, Awake - Skin Skin Exam: Dry, Pallor Assessment and Plan - Assessment and Plan (Free Text) Assessment: 51M presents with worsening abscess/ wound. PMH: Waldenstrom Macroglobulinemai, a-fib, chronic hypotension, right sided heart failure. s/p I&D POD#2 Plan: started patient on Daptomycin (the MRSA Vanco DYANA from the previous culture had an DYANA of 1, and this may be problematic for Vancomycin) and Zosyn pending blood cx and wound cx (I and D was done yesterday) would suggest MRI of thoracic spine when feasible - if patient refuses, should consider CT scan of the thoracic spine will monitor clinically I&D POD#2 f/u H/H Patient has history of chronic hypotension and right sided heart failure will follow with medicine team for recommendations for IVF infectious disease management septic wound treatment IVF wound culture blood cx: gram pos cocci abx: daptomycin per ID c/w current medical management Tylenol for fevers Gertrudis Mendez, DO PGY1
[2017-05-27] MEDS: Morphine 30 mg SR Tab PO SCH ×2 (10:32→22:01)
[2017-05-27] MEDS: diltiaZEM 180 mg/24 Hours CD Cap PO SCH (10:32)
[2017-05-27] MEDS: Digoxin 125 mcg (0.125 mg) Tab PO SCH (15:34)
--- NOTE | 2017-05-27 22:54 | CP.PCM.PN ---
Subjective - Date & Time of Evaluation Date of Evaluation: 05/26/17 Time of Evaluation: 09:00 - Subjective Subjective: DATE OF EVALUATION: 05/26/2017 HISTORY OF PRESENT ILLNESS: Mrs. Garcia is a 51-year-old male with complicated medical history. He was recently discharged from the hospital when he had a paraspinal abscess drained by surgery. He has a history of Waldenstrom's macroglobulinemia on oral chemotherapy from [facility]. He has recurrent infections. He has pancytopenia, requiring frequent blood transfusions. Admitted with back pain and fever. Wound culture from the back showed MRSA and E. faecalis. He also has history of COPD. S/P 1 unit of PRBC yesterday. Hb still low at 6.4. complaining of back pain. PAST MEDICAL HISTORY: Atrial fibrillation, congestive cardiac failure, hypertension, COPD, history of TIA, Waldenstrom's macroglobulinemia, recurrent blood transfusions, multiple bowel surgeries, colostomy, diverticulitis. PAST SURGICAL HISTORY: None. PERSONAL HISTORY: Never smoked. No history of alcohol abuse. ALLERGIES: NO KNOWN DRUG ALLERGIES. REVIEW OF SYSTEMS: As per HPI. Rest of 12-point review of systems reviewed and negative. PHYSICAL EXAMINATION: GENERAL: He is bed bound. Mild distress due to back pain. VITAL SIGNS: reviewed. HEENT: Pallor positive. NECK: No lymphadenopathy. CHEST: Air entry present equal and bilateral. CARDIOVASCULAR: S1 and S2 normal. No murmur, no gallop. ABDOMEN: Soft. Nontender. No hepatosplenomegaly. EXTREMITIES: No edema. PRODUCTION TEAM ADVISOR: Alert and oriented x3. No focal sensory or motor deficits. LABORATORY DATA: reviewed. ASSESSMENT AND PLAN: 1. Waldenstorm macroglobinemia: end stage . pancytopenia. 1 unit of PRBC today ordered. 2. ID : para spinal abscess- s/p surgical drainage. on dapto, zosyn as per ID . Dr.. Fritz note reviewed. 3. Pain : not controlled. increase MS contin [address] prn morphine. 4. CV: continue Digoxin 0.125 mg daily, Cardizem 180 mg daily. Klonopin 0.5 mg p.o. t.i.d., Coreg 3.125 mg p.o. b.i.d., 5. Surgery consult Dr. Mas appreciated. Nancy Ward MD Objective - Vital Signs/Intake and Output Vital Signs (last 24 hours): Temp Pulse Resp BP Pulse Ox 99.7 F H 93 H 20 93/65 L 98 05/27/17 17:52 05/27/17 18:00 05/27/17 17:52 05/27/17 17:52 05/27/17 06:00 Intake and Output: 05/27/17 05/28/17 18:59 06:59 Intake Total 325 Balance 325 - Medications Medications: Current Medications Acetaminophen (Tylenol 325mg Tab) 975 mg PO ONCE PRN PRN Reason: Fever >100.4 F Last Admin: 05/25/17 16:15 Dose: 975 mg Acetaminophen (Tylenol 325mg Tab) 650 mg PO Q6H PRN PRN Reason: Fever >100.4 F Last Admin: 05/26/17 17:23 Dose: 650 mg Carvedilol (Coreg) 3.125 mg PO BID [facility] Last Admin: 05/27/17 18:08 Dose: Not Given Clonazepam (Klonopin) 0.5 mg PO TID PRN; Protocol PRN Reason: Agitation Digoxin (Lanoxin) 0.125 mg PO 1400 [facility] Last Admin: 05/27/17 15:34 Dose: 0.125 mg Diltiazem HCl (Cardizem Cd) 180 mg PO DAILY [facility] Last Admin: 05/27/17 10:32 Dose: 180 mg Daptomycin 490 mg/ Sodium (Chloride) 100 mls @ 200 mls/hr IV Q24H [facility] Stop: 06/01/17 19:31 Last Admin: 05/27/17 22:12 Dose: 200 mls/hr Piperacillin Sod/Tazobactam Sod (Zosyn 4.5 Gm In Ns 100ml) 4.5 gm in 100 mls @ 200 mls/hr IVPB Q6 [facility] PRN Reason: Protocol Stop: 06/02/17 12:01 Last Admin: 05/27/17 18:09 Dose: 200 mls/hr Morphine Sulfate (Morphine Extended Release Tab) 30 mg PO Q12 [facility] Last Admin: 05/27/17 22:01 Dose: 30 mg Morphine Sulfate (Morphine) 4 mg IVP Q4H PRN PRN Reason: Pain, moderate (4-7) Last Admin: 05/27/17 15:33 Dose: 4 mg Sennosides (Senokot Tab) 8.6 mg PO DAILY [facility] Last Admin: 05/27/17 10:32 Dose: 8.6 mg - Labs Labs: 05/27/17 06:15 05/27/17 06:15 PT 14.7 Seconds (9.9-11.8) H 05/25/17 16:00 INR 1.36 (0.93-1.08) H 05/25/17 16:00 APTT 33.2 Seconds (23.7-30.8) H 05/25/17 16:00
--- NOTE | 2017-05-27 23:00 | CP.PCM.PN ---
Subjective - Date & Time of Evaluation Date of Evaluation: 05/27/17 Time of Evaluation: 09:00 - Subjective Subjective: DATE OF EVALUATION: 05/27/2017 HISTORY OF PRESENT ILLNESS: Mrs. Garcia is a 51-year-old male with complicated medical history. He was recently discharged from the hospital when he had a paraspinal abscess drained by surgery. He has a history of Waldenstrom's macroglobulinemia on oral chemotherapy from [facility]. He has recurrent infections. He has pancytopenia, requiring frequent blood transfusions. Admitted with back pain and fever. Wound culture from the back showed MRSA and E. faecalis. He also has history of COPD. He is being transfused PRBC daily for past 2 days. WC declined to 0.7. MS contin dose increased, still complaining of significant back pain. PAST MEDICAL HISTORY: Atrial fibrillation, congestive cardiac failure, hypertension, COPD, history of TIA, Waldenstrom's macroglobulinemia, recurrent blood transfusions, multiple bowel surgeries, colostomy, diverticulitis. PAST SURGICAL HISTORY: None. PERSONAL HISTORY: Never smoked. No history of alcohol abuse. ALLERGIES: NO KNOWN DRUG ALLERGIES. REVIEW OF SYSTEMS: As per HPI. Rest of 12-point review of systems reviewed and negative. PHYSICAL EXAMINATION: GENERAL: He is bed bound. Mild distress due to back pain. VITAL SIGNS: reviewed. HEENT: Pallor positive. NECK: No lymphadenopathy. CHEST: Air entry present equal and bilateral. CARDIOVASCULAR: S1 and S2 normal. No murmur, no gallop. ABDOMEN: Soft. Nontender. No hepatosplenomegaly. EXTREMITIES: No edema. GASOLINE TESTER: Alert and oriented x3. No focal sensory or motor deficits. LABORATORY DATA: reviewed. ASSESSMENT AND PLAN: 1. Waldenstorm macroglobinemia: end stage . pancytopenia. 1 unit of PRBC today ordered. Neupogen 480 mcgm SQ today. neutropenic precautions. 2. ID : para spinal abscess- s/p surgical drainage. on dapto, zosyn as per ID . Dr.. Fritz note reviewed. 3. Pain : not controlled. on MS contin [address] prn morphine. increase MS contin 20 mg PO tid. 4. CV: continue Digoxin 0.125 mg daily, Cardizem 180 mg daily. Klonopin 0.5 mg p.o. t.i.d., Coreg 3.125 mg p.o. b.i.d., 5. Surgery consult Dr. Mas appreciated. He will not be able to tolerate back imaging due to pain issues. prognosis poor, Nancy Ward MD Objective - Vital Signs/Intake and Output Vital Signs (last 24 hours): Temp Pulse Resp BP Pulse Ox 99.7 F H 93 H 20 93/65 L 98 05/27/17 17:52 05/27/17 18:00 05/27/17 17:52 05/27/17 17:52 05/27/17 06:00 Intake and Output: 05/27/17 05/28/17 18:59 06:59 Intake Total 325 Balance 325 - Medications Medications: Current Medications Acetaminophen (Tylenol 325mg Tab) 975 mg PO ONCE PRN PRN Reason: Fever >100.4 F Last Admin: 05/25/17 16:15 Dose: 975 mg Acetaminophen (Tylenol 325mg Tab) 650 mg PO Q6H PRN PRN Reason: Fever >100.4 F Last Admin: 05/26/17 17:23 Dose: 650 mg Carvedilol (Coreg) 3.125 mg PO BID [facility] Last Admin: 05/27/17 18:08 Dose: Not Given Clonazepam (Klonopin) 0.5 mg PO TID PRN; Protocol PRN Reason: Agitation Digoxin (Lanoxin) 0.125 mg PO 1400 [facility] Last Admin: 05/27/17 15:34 Dose: 0.125 mg Diltiazem HCl (Cardizem Cd) 180 mg PO DAILY [facility] Last Admin: 05/27/17 10:32 Dose: 180 mg Daptomycin 490 mg/ Sodium (Chloride) 100 mls @ 200 mls/hr IV Q24H [facility] Stop: 06/01/17 19:31 Last Admin: 05/27/17 22:12 Dose: 200 mls/hr Piperacillin Sod/Tazobactam Sod (Zosyn 4.5 Gm In Ns 100ml) 4.5 gm in 100 mls @ 200 mls/hr IVPB Q6 [facility] PRN Reason: Protocol Stop: 06/02/17 12:01 Last Admin: 05/27/17 18:09 Dose: 200 mls/hr Morphine Sulfate (Morphine Extended Release Tab) 30 mg PO Q12 [facility] Last Admin: 05/27/17 22:01 Dose: 30 mg Morphine Sulfate (Morphine) 4 mg IVP Q4H PRN PRN Reason: Pain, moderate (4-7) Last Admin: 05/27/17 15:33 Dose: 4 mg Sennosides (Senokot Tab) 8.6 mg PO DAILY [facility] Last Admin: 05/27/17 10:32 Dose: 8.6 mg - Labs Labs: 05/27/17 06:15 05/27/17 06:15 PT 14.7 Seconds (9.9-11.8) H 05/25/17 16:00 INR 1.36 (0.93-1.08) H 05/25/17 16:00 APTT 33.2 Seconds (23.7-30.8) H 05/25/17 16:00
[2017-05-28] MEDS: Piperacill/Tazo 4.5gm in NS 4.5 GM/100 ML BAG IVPB SCH ×4 (00:17→17:54)
[2017-05-28] MEDS: Morphine 4 mg/ml ISec IVP PRN ×5 (01:46→20:49)
--- NOTE | 2017-05-28 03:17 | PN ---
DATE: 05/27/2017 SUBJECTIVE: The patient is in bed, in no acute distress, nontoxic. PHYSICAL EXAMINATION: VITAL SIGNS: Temperature is 99, blood pressure is 93/60, respiratory rate of 20, heart rate of 99. HEENT: Unremarkable. NECK: Supple. LUNGS: Decreased breath sounds. HEART: Normal S1 and S2. ABDOMEN: Soft, nontender. LABORATORY DATA: Reveals a white count of 0.7, hemoglobin of 6, platelets of 25. BUN of 12 and creatinine of 0.5. Urinalysis is noted. The blood cultures have one bottle of the Gram-positive cocci and that was from 05/25/2017, and is reported to be a coag-negative Staph and then the other bottle no growth,next bottle of blood cultures, that cultures are Gram-negative rods, further identification sensitivity is pending. ASSESSMENT AND PLAN: This is a 51-year-old male with Waldenstrom macroglobulinemia, currently on chemotherapy; atrial fibrillation; anticoagulation, history of diverticulitis, status post Nneka's procedure; history of stoma; skin infection; history of vertebral compression fractures, admitted with a posterior thorax abscess, which restrained by surgery, grew methicillin-resistant Staphylococcus aureus and enterococcus, was given antibiotics, and discharged and at this point is sepsis to the thoracic area and soft tissue infection with its recurrence, must rule out underlying osteomyelitis and on daptomycin and Zosyn pending imaging and cultures. Case discussed with Dr. Ward, who will follow closely with you. Anatoliy Luna MD
--- NOTE | 2017-05-28 07:54 | CP.PCM.PN ---
Subjective - Date & Time of Evaluation Date of Evaluation: 05/28/17 Time of Evaluation: 07:51 - Subjective Subjective: General Surgery Progress note for Dr. Mas PT S&Marisa HARVEY. Patient is tolerating pain well. Dressings changed at bedside. packing shortened at bedside. wound culture gram negative rods Objective - Vital Signs/Intake and Output Vital Signs (last 24 hours): Temp Pulse Resp BP Pulse Ox 98.6 F 97 H 20 90/62 L 96 05/28/17 06:00 05/28/17 06:00 05/28/17 06:00 05/28/17 06:00 05/28/17 06:00 Intake and Output: 05/28/17 05/28/17 06:59 18:59 Intake Total 180 Output Total 300 Balance -120 - Medications Medications: Current Medications Acetaminophen (Tylenol 325mg Tab) 975 mg PO ONCE PRN PRN Reason: Fever >100.4 F Last Admin: 05/25/17 16:15 Dose: 975 mg Acetaminophen (Tylenol 325mg Tab) 650 mg PO Q6H PRN PRN Reason: Fever >100.4 F Last Admin: 05/26/17 17:23 Dose: 650 mg Carvedilol (Coreg) 3.125 mg PO BID [facility] Last Admin: 05/27/17 18:08 Dose: Not Given Clonazepam (Klonopin) 0.5 mg PO TID PRN; Protocol PRN Reason: Agitation Digoxin (Lanoxin) 0.125 mg PO 1400 [facility] Last Admin: 05/27/17 15:34 Dose: 0.125 mg Diltiazem HCl (Cardizem Cd) 180 mg PO DAILY [facility] Last Admin: 05/27/17 10:32 Dose: 180 mg Daptomycin 490 mg/ Sodium (Chloride) 100 mls @ 200 mls/hr IV Q24H [facility] Stop: 06/01/17 19:31 Last Admin: 05/27/17 22:12 Dose: 200 mls/hr Piperacillin Sod/Tazobactam Sod (Zosyn 4.5 Gm In Ns 100ml) 4.5 gm in 100 mls @ 200 mls/hr IVPB Q6 [facility] PRN Reason: Protocol Stop: 06/02/17 12:01 Last Admin: 05/28/17 06:07 Dose: 200 mls/hr Morphine Sulfate (Morphine) 4 mg IVP Q4H PRN PRN Reason: Pain, moderate (4-7) Last Admin: 05/28/17 06:28 Dose: 4 mg Morphine Sulfate (Morphine Extended Release Tab) 20 mg PO TID [facility] Sennosides (Senokot Tab) 8.6 mg PO DAILY [facility] Last Admin: 05/27/17 10:32 Dose: 8.6 mg - Labs Labs: 05/27/17 06:15 05/27/17 06:15 PT 14.7 Seconds (9.9-11.8) H 05/25/17 16:00 INR 1.36 (0.93-1.08) H 05/25/17 16:00 APTT 33.2 Seconds (23.7-30.8) H 05/25/17 16:00 - Constitutional Appears: No Acute Distress - Head Exam Head Exam: NORMAL INSPECTION - Eye Exam Eye Exam: EOMI, Normal appearance - ENT Exam ENT Exam: Mucous Membranes Moist - Respiratory Exam Respiratory Exam: Clear to Ausculation Bilateral, NORMAL BREATHING PATTERN. absent: Accessory Muscle Use, Respiratory Distress Assessment and Plan - Assessment and Plan (Free Text) Assessment: 51M presents with worsening abscess/ wound. PMH: Waldenstrom Macroglobulinemai, a-fib, chronic hypotension, right sided heart failure. s/p I&D POD#3 Plan: f/u H/H Patient has history of chronic hypotension and right sided heart failure will follow with medicine team for recommendations for IVF infectious disease management septic wound treatment IVF wound culture blood cx: gram pos cocci wound cx: gram neg rods abx: daptomycin per ID c/w current medical management Tylenol for fevers Gertrudis Mendez DO PGY1
[2017-05-28 11:21] LABS: GRAN # 1.25 (1.4-6.5); GRAN % 86.8 % (50.0-68.0); LYMPH # 0.1 (1.2-3.4); LYMPH % 7.6 % (22.0-35.0); MEAN CELL VOLUME 101.4 fl (80.0-105.0); MEAN CORPUSCULAR HEMOGLOBIN 30.9 pg (25.0-35.0); MEAN CORPUSCULAR HGB CONC 30.5 g/dl (31.0-37.0); MEAN PLATELET VOLUME 9.9 fl (7.0-11.0); MONO # 0.1 (0.1-0.6); MONO % 5.6 % (1.0-6.0); RED CELL DISTRIBUTION WIDTH 21.4 % (11.5-14.5)
[2017-05-28 11:30] LABS: ALB/GLOB RATIO 0.8 (1.1-1.8); ALKALINE PHOSPHATASE 45 U/L (38-126); ALT/SGPT 21 U/L (7-56); AST/SGOT 13 U/L (17-59); BILIRUBIN,TOTAL 1.4 mg/dL (0.2-1.3); BLOOD UREA NITROGEN 12 mg/dL (7-21); CALCIUM 8.1 mg/dL (8.4-10.5); CARBON DIOXIDE 34 mmol/L (21-33); CHLORIDE 98 mmol/L (98-107); GFR AFRICAN-AMERICAN > 60; GLUCOSE,RANDOM 114 mg/dL (70-110); POTASSIUM 3.7 mmol/L (3.6-5.0); SODIUM 136 mmol/L (132-148); TOTAL PROTEIN 5.8 g/dL (5.8-8.3)
[2017-05-28 11:31] LABS: HEMATOCRIT 22.3 % (42.0-52.0); WHITE BLOOD COUNT 1.4 10^3/ul (4.5-11.0)
[2017-05-28 11:32] LABS: PLATELET COUNT 24 10^3/uL (120.0-450.0)
[2017-05-28 11:46] LABS: PLATELET ESTIMATE LOW (NORMAL)
[2017-05-28] MEDS: diltiaZEM 180 mg/24 Hours CD Cap PO SCH (12:01)
[2017-05-28] MEDS: Digoxin 125 mcg (0.125 mg) Tab PO SCH (14:18)
[2017-05-28] MEDS: Morphine 30 mg SR Tab PO SCH ×2 (14:20→21:37)
--- NOTE | 2017-05-28 17:53 | CP.PCM.PN ---
Subjective - Date & Time of Evaluation Date of Evaluation: 05/28/17 Time of Evaluation: 09:30 - Subjective Subjective: Continues to have back pain, no fevers overnight. Objective - Vital Signs/Intake and Output Vital Signs (last 24 hours): Temp Pulse Resp BP Pulse Ox 98.6 F 90 20 90/62 L 96 05/28/17 06:00 05/28/17 06:00 05/28/17 06:00 05/28/17 06:00 05/28/17 06:00 Intake and Output: 05/28/17 05/28/17 06:59 18:59 Intake Total 740 Output Total 600 Balance 140 - Medications Medications: Current Medications Acetaminophen (Tylenol 325mg Tab) 975 mg PO ONCE PRN PRN Reason: Fever >100.4 F Last Admin: 05/25/17 16:15 Dose: 975 mg Acetaminophen (Tylenol 325mg Tab) 650 mg PO Q6H PRN PRN Reason: Fever >100.4 F Last Admin: 05/26/17 17:23 Dose: 650 mg Carvedilol (Coreg) 3.125 mg PO BID [facility] Last Admin: 05/27/17 18:08 Dose: Not Given Clonazepam (Klonopin) 0.5 mg PO TID PRN; Protocol PRN Reason: Agitation Digoxin (Lanoxin) 0.125 mg PO 1400 [facility] Last Admin: 05/27/17 15:34 Dose: 0.125 mg Diltiazem HCl (Cardizem Cd) 180 mg PO DAILY [facility] Last Admin: 05/27/17 10:32 Dose: 180 mg Daptomycin 490 mg/ Sodium (Chloride) 100 mls @ 200 mls/hr IV Q24H [facility] Stop: 06/01/17 19:31 Last Admin: 05/27/17 22:12 Dose: 200 mls/hr Piperacillin Sod/Tazobactam Sod (Zosyn 4.5 Gm In Ns 100ml) 4.5 gm in 100 mls @ 200 mls/hr IVPB Q6 [facility] PRN Reason: Protocol Stop: 06/02/17 12:01 Last Admin: 05/28/17 06:07 Dose: 200 mls/hr Morphine Sulfate (Morphine) 4 mg IVP Q4H PRN PRN Reason: Pain, moderate (4-7) Last Admin: 05/28/17 06:28 Dose: 4 mg Morphine Sulfate (Morphine Extended Release Tab) 20 mg PO TID [facility] Sennosides (Senokot Tab) 8.6 mg PO DAILY [facility] Last Admin: 05/27/17 10:32 Dose: 8.6 mg - Labs Labs: 05/27/17 06:15 05/27/17 06:15 PT 14.7 Seconds (9.9-11.8) H 05/25/17 16:00 INR 1.36 (0.93-1.08) H 05/25/17 16:00 APTT 33.2 Seconds (23.7-30.8) H 05/25/17 16:00 - Constitutional Appears: Non-toxic, No Acute Distress - Head Exam Head Exam: NORMAL INSPECTION - ENT Exam ENT Exam: Mucous Membranes Moist - Neck Exam Neck Exam: absent: Meningismus - Respiratory Exam Respiratory Exam: Decreased Breath Sounds - Cardiovascular Exam Cardiovascular Exam: +S1, +S2 - GI/Abdominal Exam GI & Abdominal Exam: Soft. absent: Tenderness Assessment and Plan - Assessment and Plan (Free Text) Plan: assessment sepsis due to thoracic area soft tissue infection (recurrence) with methicillin- resistant coagulase negative staph, Pseudomonas, Acinetobacter - should rule out vertebral osteomyelitis; previously the abscess had MRSA and E. faecalis history of C. diff associated diarrhea Leukopenia without fever, probably related to his Waldenstrom's macroglobulinemia history of intra-abdominal infection/colitis history of Acute sigmoid diverticulitis with abscess formation S/P resection and colostomy placement Waldenstrom's Macroglobinemia currently on chemotherapy atrial fibrillation on anticoagulation Plan continue Daptomycin (the CoNS Vanco DYANA from the previous culture had an DYANA of 1, and this may be problematic for Vancomycin) and Zosyn; will also add Gentamicin since the Acinetobacter is resistant to Zosyn and Merrem would suggest MRI of thoracic spine when feasible - if patient refuses, should consider CT scan of the thoracic spine and if we are unable to do these, we are unable to rule out osteomyelitis and should treat as such until proven otherwise will continue to monitor clinically discussed with Dr. Ward
[2017-05-28] MEDS ORDERED: Gentamicin 80 mg/2mL Inj. IVPB SCH (18:00)
[2017-05-29] MEDS: Morphine 4 mg/ml ISec IVP PRN ×4 (01:37→15:40)
[2017-05-29] MEDS: Piperacill/Tazo 4.5gm in NS 4.5 GM/100 ML BAG IVPB SCH ×6 (01:53→23:03)
--- NOTE | 2017-05-29 10:04 | CP.PCM.PN ---
Subjective - Date & Time of Evaluation Date of Evaluation: 05/29/17 Time of Evaluation: 07:45 - Subjective Subjective: Pt S&E. NAEO. Back dressing changed. Moderate drainage from wound site. Objective - Vital Signs/Intake and Output Vital Signs (last 24 hours): Temp Pulse Resp BP Pulse Ox 99.0 F 92 H 19 90/50 L 98 05/29/17 06:00 05/29/17 06:00 05/29/17 06:00 05/29/17 06:00 05/29/17 06:00 Intake and Output: 05/29/17 05/29/17 06:59 18:59 Intake Total 969 Output Total 1000 Balance -31 - Medications Medications: Current Medications Acetaminophen (Tylenol 325mg Tab) 975 mg PO ONCE PRN PRN Reason: Fever >100.4 F Last Admin: 05/25/17 16:15 Dose: 975 mg Acetaminophen (Tylenol 325mg Tab) 650 mg PO Q6H PRN PRN Reason: Fever >100.4 F Last Admin: 05/26/17 17:23 Dose: 650 mg Carvedilol (Coreg) 3.125 mg PO BID [facility] Last Admin: 05/28/17 18:03 Dose: Not Given Clonazepam (Klonopin) 0.5 mg PO TID PRN; Protocol PRN Reason: Agitation Digoxin (Lanoxin) 0.125 mg PO 1400 [facility] Last Admin: 05/28/17 14:18 Dose: 0.125 mg Diltiazem HCl (Cardizem Cd) 180 mg PO DAILY [facility] Last Admin: 05/28/17 12:01 Dose: Not Given Daptomycin 490 mg/ Sodium (Chloride) 100 mls @ 200 mls/hr IV Q24H [facility] Stop: 06/01/17 19:31 Last Admin: 05/28/17 20:27 Dose: 200 mls/hr Piperacillin Sod/Tazobactam Sod (Zosyn 4.5 Gm In Ns 100ml) 4.5 gm in 100 mls @ 200 mls/hr IVPB Q6 [facility] PRN Reason: Protocol Stop: 06/02/17 12:01 Last Admin: 05/29/17 06:17 Dose: 200 mls/hr Gentamicin Sulfate 200 mg/ (Sodium Chloride) 105 mls @ 105 mls/hr IVPB Q24H [facility] Last Admin: 05/28/17 18:26 Dose: 105 mls/hr Morphine Sulfate (Morphine) 4 mg IVP Q4H PRN PRN Reason: Pain, moderate (4-7) Last Admin: 05/29/17 06:22 Dose: 4 mg Morphine Sulfate (Morphine Extended Release Tab) 30 mg PO Q12 [facility] Last Admin: 05/28/17 21:37 Dose: 30 mg Sennosides (Senokot Tab) 8.6 mg PO DAILY [facility] Last Admin: 05/28/17 11:42 Dose: 8.6 mg - Labs Labs: 05/28/17 11:00 05/28/17 11:00 PT 14.7 Seconds (9.9-11.8) H 05/25/17 16:00 INR 1.36 (0.93-1.08) H 05/25/17 16:00 APTT 33.2 Seconds (23.7-30.8) H 05/25/17 16:00 - Constitutional Appears: No Acute Distress - Head Exam Head Exam: NORMOCEPHALIC - Eye Exam Eye Exam: Normal appearance - ENT Exam ENT Exam: Mucous Membranes Moist - Respiratory Exam Respiratory Exam: NORMAL BREATHING PATTERN - Cardiovascular Exam Cardiovascular Exam: +S1, +S2 - GI/Abdominal Exam GI & Abdominal Exam: Soft - Back Exam Additional comments: +back wound s/p I&D of abscess - Neurological Exam Neurological Exam: Alert, Awake, Oriented x3 - Psychiatric Exam Psychiatric exam: Normal Mood - Skin Skin Exam: Dry, Intact, Warm Assessment and Plan - Assessment and Plan (Free Text) Assessment: 51M w/ recurrent back abscess s/p I&D POD4 -Daily dressing changes -NPO after midnight on Wednesday -For thoracic MRI on Wednesday to r/o osteomyelitis -Recommended cardiology consult prior to MRI as patient will need to be sedated via anesthesia -Medical management as per primary team Further recs per Dr. Chace Newman PGY-2
[2017-05-29] MEDS: diltiaZEM 180 mg/24 Hours CD Cap PO SCH (11:12)
[2017-05-29] MEDS: Morphine 30 mg SR Tab PO SCH ×2 (11:13→22:26)
[2017-05-29 11:43] LABS: EOS % 1.4 % (1.5-5.0); GRAN # 0.57 (1.4-6.5); GRAN % 82.7 % (50.0-68.0); LYMPH # 0.1 (1.2-3.4); LYMPH % 10.1 % (22.0-35.0); MEAN CORPUSCULAR HEMOGLOBIN 32.5 pg (25.0-35.0); MEAN CORPUSCULAR HGB CONC 31.9 g/dl (31.0-37.0); MEAN PLATELET VOLUME 11.1 fl (7.0-11.0); MONO % 5.8 % (1.0-6.0); RED CELL DISTRIBUTION WIDTH 20.4 % (11.5-14.5)
[2017-05-29 11:45] LABS: HEMATOCRIT 20.7 % (42.0-52.0); PLATELET COUNT 25 10^3/uL (120.0-450.0); WHITE BLOOD COUNT 0.7 10^3/ul (4.5-11.0)
[2017-05-29 11:57] LABS: BLOOD UREA NITROGEN 12 mg/dL (7-21); CARBON DIOXIDE 35 mmol/L (21-33); CHLORIDE 98 mmol/L (98-107); GFR AFRICAN-AMERICAN > 60; GLUCOSE,RANDOM 104 mg/dL (70-110); POTASSIUM 4.6 mmol/L (3.6-5.0); SODIUM 137 mmol/L (132-148)
--- NOTE | 2017-05-29 13:04 | CP.PCM.PN ---
Subjective - Date & Time of Evaluation Date of Evaluation: 05/29/17 Time of Evaluation: 10:30 - Subjective Subjective: As per patient, he has less back pain, no fevers overnight. For MRI on Wednesday. Objective - Vital Signs/Intake and Output Vital Signs (last 24 hours): Temp Pulse Resp BP Pulse Ox 98 F 99 H 17 88/48 L 96 05/28/17 17:42 05/28/17 17:42 05/28/17 17:42 05/28/17 17:42 05/28/17 06:00 Intake and Output: 05/28/17 05/28/17 06:59 18:59 Intake Total 740 Output Total 600 Balance 140 - Medications Medications: Current Medications Acetaminophen (Tylenol 325mg Tab) 975 mg PO ONCE PRN PRN Reason: Fever >100.4 F Last Admin: 05/25/17 16:15 Dose: 975 mg Acetaminophen (Tylenol 325mg Tab) 650 mg PO Q6H PRN PRN Reason: Fever >100.4 F Last Admin: 05/26/17 17:23 Dose: 650 mg Carvedilol (Coreg) 3.125 mg PO BID [facility] Last Admin: 05/28/17 11:44 Dose: Not Given Clonazepam (Klonopin) 0.5 mg PO TID PRN; Protocol PRN Reason: Agitation Digoxin (Lanoxin) 0.125 mg PO 1400 [facility] Last Admin: 05/28/17 14:18 Dose: 0.125 mg Diltiazem HCl (Cardizem Cd) 180 mg PO DAILY [facility] Last Admin: 05/28/17 12:01 Dose: Not Given Gentamicin Sulfate (Gentamicin) 200 mg 2.5 mg/kg (200 mg) IVPB DAILY [facility] PRN Reason: Protocol Daptomycin 490 mg/ Sodium (Chloride) 100 mls @ 200 mls/hr IV Q24H [facility] Stop: 06/01/17 19:31 Last Admin: 05/27/17 22:12 Dose: 200 mls/hr Piperacillin Sod/Tazobactam Sod (Zosyn 4.5 Gm In Ns 100ml) 4.5 gm in 100 mls @ 200 mls/hr IVPB Q6 [facility] PRN Reason: Protocol Stop: 06/02/17 12:01 Last Admin: 05/28/17 11:41 Dose: 200 mls/hr Morphine Sulfate (Morphine) 4 mg IVP Q4H PRN PRN Reason: Pain, moderate (4-7) Last Admin: 05/28/17 16:29 Dose: 4 mg Morphine Sulfate (Morphine Extended Release Tab) 30 mg PO Q12 [facility] Last Admin: 05/28/17 14:20 Dose: 30 mg Sennosides (Senokot Tab) 8.6 mg PO DAILY [facility] Last Admin: 05/28/17 11:42 Dose: 8.6 mg - Labs Labs: 05/28/17 11:00 05/28/17 11:00 PT 14.7 Seconds (9.9-11.8) H 05/25/17 16:00 INR 1.36 (0.93-1.08) H 05/25/17 16:00 APTT 33.2 Seconds (23.7-30.8) H 05/25/17 16:00 - Constitutional Appears: Non-toxic, No Acute Distress, Chronically Ill - Head Exam Head Exam: NORMAL INSPECTION - Respiratory Exam Respiratory Exam: Decreased Breath Sounds - Cardiovascular Exam Cardiovascular Exam: +S1, +S2 - GI/Abdominal Exam GI & Abdominal Exam: Soft. absent: Tenderness Assessment and Plan - Assessment and Plan (Free Text) Plan: assessment sepsis due to thoracic area soft tissue infection (recurrence) with methicillin- resistant coagulase negative staph (bacteremia with this as well), Pseudomonas, Acinetobacter - should rule out vertebral osteomyelitis; previously the abscess had MRSA and E. faecalis history of C. diff associated diarrhea Leukopenia without fever, probably related to his Waldenstrom's macroglobulinemia history of intra-abdominal infection/colitis history of Acute sigmoid diverticulitis with abscess formation S/P resection and colostomy placement Waldenstrom's Macroglobinemia currently on chemotherapy atrial fibrillation on anticoagulation Plan continue Daptomycin (the CoNS Vanco DYANA from the previous culture had an DYANA of 1, and this may be problematic for Vancomycin) and Zosyn; continue Gentamicin since the Acinetobacter is resistant to Zosyn and Merrem follow up MRI of thoracic spine which should be done on Wednesday follow up 2D echo; repeat blood cx are negative (05/27/2017) will continue to monitor clinically discussed with Dr. Wadr
--- NOTE | 2017-05-29 14:20 | PN ---
DATE: 05/29/2017 SUBJECTIVE: He is comfortable in bed, in no acute distress. He is complaining of pain and is better controlled now. He still has pain while slightest movement even after turning in the bed. No fever. No cough with expectoration. He is currently on IV antibiotics for paraspinal abscess. Blood count declined again to 0.7, hemoglobin of 6.6, and platelet count is stable 25,000. No bleeding. REVIEW OF SYSTEMS: As per HPI. Rest of the 12-point review of systems reviewed and negative. PHYSICAL EXAMINATION: GENERAL: Comfortable in bed, in no acute distress. VITAL SIGNS: Heart rate 110 per minute, blood pressure 90/70, and respiratory rate is 18 per minute. HEENT: Pallor positive. HEENT is negative. CHEST: Air entry present and equal bilaterally. No added sounds. CARDIOVASCULAR: S1 and S2 normal. No murmur. No gallop. ABDOMEN: Soft and nontender. No hepatosplenomegaly. EXTREMITIES: No edema. CENTRAL NERVOUS SYSTEMS: Alert and oriented x3. No focal sensory or motor deficits. MEDICATIONS: Reviewed. LABORATORY DATA: Sodium 137, potassium 4.6, BUN 12, creatinine 0.8, calcium 8, white count 0.7, hemoglobin 6.6, hematocrit 20.7, and platelet count 25. ASSESSMENT AND PLAN: 1. Waldenstrom's macroglobulinemia; end-stage disease. Blood count might not recover at all. We will give one dose of Neupogen 480 mcg subcutaneously stat, one unit of blood transfusion for hemoglobin 6.6. He has been transfused almost everyday since the hospitalization. Prognosis is very poor due to the underlying disease. 2. Pancytopenia. Management as above, one unit of packed red blood cell, 480 mcg of Neupogen today. 3. Paraspinal abscess, sepsis, questionable osteomyelitis of the spine. Surgery following. ID following. Antibiotic as per ID. Consideration for MRI may to be done on Wednesday. Discussed with Dr. Schmidt. Other option is he might be treated for osteomyelitis as blood count will not recover. 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 4. Pain, controlled with MS Contin 30 mg b.i.d. and morphine q.4 hour p.r.n. We will continue the same regimen. 5. Gastrointestinal. Senna and Colace b.i.d. for constipation prevention due to narcotics. Discussed with the patient. Discussed with the staff nurse. Nancy Ward MD [facility]
[2017-05-29] MEDS: Digoxin 125 mcg (0.125 mg) Tab PO SCH (14:42)
--- NOTE | 2017-05-29 15:19 | PN ---
DATE: 05/28/2017 SUBJECTIVE: He is complaining of back pain especially on movement. I did recommended MRI to rule out osteomyelitis at this point. He is very scared of MRI, he said he will be in severe pain, he want general anesthesia for MRI. Blood counts are better today, white count increased to 1.4 and hemoglobin 6.8, he received one unit of blood transfusion when he was in yesterday. First culture is polymicrobial. He is on IV antibiotics as per ID. REVIEW OF SYSTEMS: As per HPI. Rest of 12-point review of systems reviewed and negative. MEDICATIONS: Tylenol 650 mg q. 4 hours p.r.n., Coreg 3.125 mg p.o. b.i.d., Klonopin 0.5 mg t.i.d., daptomycin every 24 hours, digoxin 0.125 daily, Cardizem 180 mg daily, gentamicin q. 24 hours, morphine q. 4 hours p.r.n., MS Contin 30 mg p.o. q. 12, Zosyn and Senokot. PHYSICAL EXAMINATION: GENERAL: Comfortable in bed, in no acute distress. VITAL SIGNS: Heart rate is per minute, blood pressure is 90/50, temperature is 99. HEENT: Pallor positive. NECK: Supple. CHECK: Air entry present, equal, bilateral, no added sound. CARDIOVASCULAR: S1, S2 normal. No murmur, no gallop. ABDOMEN: Soft, nontender, no hepatosplenomegaly. EXTREMITIES: No edema. [employer] SALES REPRESENTATIVE: Alert, oriented x3, no focal, sensory or motor deficit. LABORATORY DATA: White count 1.4, hemoglobin of 6.8, hematocrit 32.3, platelets of 24. Sodium 136, potassium 3.7, creatinine of 0.6, calcium 8.1. AST 21, ALT 45. ASSESSMENT: 1. Waldenstrom macroglobulinemia. 2. Pancytopenia. 3. Polymicrobial paraspinal abscess. 4. Sepsis. 5. Back pain. 6. History of congestive heart failure. PLAN: He has pancytopenia, end-stage Waldenstrom. He has been receiving almost everyday one unit of PRBC to maintain hemoglobin around 7. He has received yesterday one unit of PRBC and Neupogen 480 mcg subcu. White count improved little bit. His condition is end-stage. He might not recover at all from neutropenia. Paraspinal abscess, he is on IV antibiotic as per ID, surgery following. We will continue cardiac med digoxin 0.125 mg daily and Cardizem 180 mg daily. Coreg 3.125 mg daily. Pain medication, MS Contin increased to 30 mg b.i.d., morphine q. 4 hour p.r.n. Pain is fairly controlled on current regimen. We will discuss with ID regarding MRI. Nancy Ward MD
--- NOTE | 2017-05-29 19:18 | CARD ---
APPROVED REPORT EXAM: Two-dimensional and M-mode echocardiogram with Doppler and color Doppler. INDICATION 2D DIMENSIONS IVSd1.0 (0.7-1.1cm)LVDd4.4 (3.9-5.9cm) LVOT Diameter2.3 (1.8-2.4cm)PWd0.9 (0.7-1.1cm) LVDs3.4 (2.5-4.0cm)FS (%) 23.7 % LVEF (%)47.5 (>50%) M-Mode DIMENSIONS Left Atrium (MM)4.70 (2.5-4.0cm)Aortic Root4.20 (2.2-3.7cm) Aortic Cusp Exc.1.50 (1.5-2.0cm) Aortic Valve AoV Peak Uwchdfpb417.0cm/sAoV VTI77.9cmAO Peak GR.68mmHg LVOT Peak Gfwaistb33.7cm/sLVOT VTI15.90cmAO Mean GR.32mmHg SONYA (VMAX)0.75ld3RSV (VTI)0.85cm2 Mitral Valve MV E Fafbjxjf469.0cm/s TDI Lateral E' Peak V11.50cm/sMedial E' Peak V12.20cm/sE/Lateral E'11.8 E/Medial E'11.1 Tricuspid Valve TR Peak [id number]/sRAP [id number] Peak Gr.30mmHg [id number] LEFT VENTRICLE The left ventricle is normal size. There is normal left ventricular wall thickness. The systolic function is mildly impaired. RIGHT VENTRICLE The right ventricle is normal size. There is normal right ventricular wall thickness. The right ventricular systolic function is normal. ATRIA The left atrium is moderately dilated. The right atrium is mildly dilated. AORTIC VALVE The aortic valve is severely thickened. There is mild aortic regurgitation. There is moderate valvular aortic stenosis. MITRAL VALVE The mitral valve is moderately thickened. TRICUSPID VALVE There is mild pulmonary hypertension. GREAT VESSELS The aortic root is normal in size. <Conclusion> The left ventricle is normal size. There is normal left ventricular wall thickness. The systolic function is mildly impaired. The aortic valve is severely thickened.possibly Bicusped There is mild aortic regurgitation. There is moderate valvular aortic stenosis. There is mild pulmonary hypertension. The mitral valve is moderately thickened. Consider MARIANNA
[2017-05-30] MEDS: Morphine 4 mg/ml ISec IVP PRN ×2 (02:37→22:42)
[2017-05-30] MEDS: Piperacill/Tazo 4.5gm in NS 4.5 GM/100 ML BAG IVPB SCH ×5 (05:15→23:32)
--- NOTE | 2017-05-30 08:26 | CP.PCM.PN ---
Subjective - Date & Time of Evaluation Date of Evaluation: 05/30/17 Time of Evaluation: 07:45 - Subjective Subjective: General sx progress note for Dr. Clarice Pitts, PGY-1 Pt S & E at bedside. Pt reports some back pain that radiates anteriorly, inability to move body. Denies N/V/F/C, SOB, CP, ab pain, other complaints. Dressing changed-moderate serous drainage. Objective - Vital Signs/Intake and Output Vital Signs (last 24 hours): Temp Pulse Resp BP Pulse Ox 98.9 F 85 19 95/58 L 98 05/30/17 05:27 05/30/17 05:27 05/30/17 05:27 05/30/17 06:39 05/30/17 05:27 Intake and Output: 05/30/17 05/30/17 06:59 18:59 Intake Total 615 Output Total 775 Balance -160 - Medications Medications: Current Medications Acetaminophen (Tylenol 325mg Tab) 975 mg PO ONCE PRN PRN Reason: Fever >100.4 F Last Admin: 05/25/17 16:15 Dose: 975 mg Acetaminophen (Tylenol 325mg Tab) 650 mg PO Q6H PRN PRN Reason: Fever >100.4 F Last Admin: 05/26/17 17:23 Dose: 650 mg Carvedilol (Coreg) 3.125 mg PO BID [facility] Last Admin: 05/29/17 18:56 Dose: 3.125 mg Clonazepam (Klonopin) 0.5 mg PO TID PRN; Protocol PRN Reason: Agitation Digoxin (Lanoxin) 0.125 mg PO 1400 [facility] Last Admin: 05/29/17 14:42 Dose: 0.125 mg Diltiazem HCl (Cardizem Cd) 180 mg PO DAILY [facility] Last Admin: 05/29/17 11:12 Dose: 180 mg Daptomycin 490 mg/ Sodium (Chloride) 100 mls @ 200 mls/hr IV Q24H [facility] Stop: 06/01/17 19:31 Last Admin: 05/29/17 21:05 Dose: 200 mls/hr Piperacillin Sod/Tazobactam Sod (Zosyn 4.5 Gm In Ns 100ml) 4.5 gm in 100 mls @ 200 mls/hr IVPB Q6 [facility] PRN Reason: Protocol Stop: 06/02/17 12:01 Last Admin: 05/30/17 05:24 Dose: 200 mls/hr Gentamicin Sulfate 200 mg/ (Sodium Chloride) 105 mls @ 105 mls/hr IVPB Q24H [facility] Last Admin: 05/29/17 18:57 Dose: 105 mls/hr Morphine Sulfate (Morphine) 4 mg IVP Q4H PRN PRN Reason: Pain, moderate (4-7) Last Admin: 05/30/17 02:37 Dose: 4 mg Morphine Sulfate (Morphine Extended Release Tab) 30 mg PO Q12 [facility] Last Admin: 05/29/17 22:26 Dose: 30 mg Sennosides (Senokot Tab) 8.6 mg PO DAILY [facility] Last Admin: 05/29/17 10:59 Dose: Not Given - Labs Labs: 05/29/17 11:30 05/29/17 11:30 PT 14.7 Seconds (9.9-11.8) H 05/25/17 16:00 INR 1.36 (0.93-1.08) H 05/25/17 16:00 APTT 33.2 Seconds (23.7-30.8) H 05/25/17 16:00 - Constitutional Appears: Non-toxic, No Acute Distress - Head Exam Head Exam: ATRAUMATIC, NORMAL INSPECTION, NORMOCEPHALIC - Eye Exam Eye Exam: EOMI, Normal appearance - ENT Exam ENT Exam: Mucous Membranes Moist, Normal Exam - Neck Exam Neck Exam: Normal Inspection - Respiratory Exam Respiratory Exam: Clear to Ausculation Bilateral, NORMAL BREATHING PATTERN. absent: Rales, Rhonchi, Wheezes - Cardiovascular Exam Cardiovascular Exam: REGULAR RHYTHM, +S1, +S2 - GI/Abdominal Exam GI & Abdominal Exam: Soft, Normal Bowel Sounds. absent: Distended (obese with pannus), Firm, Guarding, Rigid, Tenderness Additional comments: ostomy bag with moderate amount of pasty brown stool obscuring stoma; lateral aspect of panus with edema and moisture - Extremities Exam Extremities Exam: Pedal Edema (1+ pitting B/L). absent: Full ROM - Back Exam Back Exam: absent: NORMAL INSPECTION (Right midthoracic region with wound, approximately 6x8 cm with serous drainage, pink base, white tissue margins) - Neurological Exam Neurological Exam: Alert, Awake, CN II-XII Intact, Oriented x3 - Psychiatric Exam Psychiatric exam: Normal Affect, Normal Mood - Skin Skin Exam: Dry (flaky skin of LE B/L), Warm. absent: Intact (R midthoracic back abscess site ) Assessment and Plan - Assessment and Plan (Free Text) Assessment: 51M POD#5 s/p I & D of recurrent back abscess Plan: Daily dressing changes NPO after MN for thoracic MRI Mon (r/o osteomyelitis) Rec: cardio consult for anesthesia during MRI Further mgmt as per primary team and consultants Further recs as per Dr. Chace Pitts, PGY-1
[2017-05-30] MEDS: Morphine 30 mg SR Tab PO SCH ×2 (09:20→21:02)
[2017-05-30] MEDS: diltiaZEM 180 mg/24 Hours CD Cap PO SCH (09:20)
[2017-05-30 11:05] LABS: EOS % 1.2 % (1.5-5.0); GRAN # 0.63 (1.4-6.5); GRAN % 73.2 % (50.0-68.0); LYMPH # 0.1 (1.2-3.4); LYMPH % 15.1 % (22.0-35.0); MEAN CELL VOLUME 101.3 fl (80.0-105.0); MEAN CORPUSCULAR HEMOGLOBIN 31.1 pg (25.0-35.0); MEAN CORPUSCULAR HGB CONC 30.7 g/dl (31.0-37.0); MEAN PLATELET VOLUME 9.7 fl (7.0-11.0); MONO # 0.1 (0.1-0.6); MONO % 10.5 % (1.0-6.0); RED CELL DISTRIBUTION WIDTH 20.2 % (11.5-14.5)
[2017-05-30 11:12] LABS: HEMATOCRIT 23.8 % (42.0-52.0); PLATELET COUNT 25 10^3/uL (120.0-450.0); WHITE BLOOD COUNT 0.9 10^3/ul (4.5-11.0)
[2017-05-30 11:13] LABS: BLOOD UREA NITROGEN 12 mg/dL (7-21); CALCIUM 8.2 mg/dL (8.4-10.5); CARBON DIOXIDE 37 mmol/L (21-33); CHLORIDE 96 mmol/L (98-107); GFR AFRICAN-AMERICAN > 60; GLUCOSE,RANDOM 94 mg/dL (70-110); POTASSIUM 4.2 mmol/L (3.6-5.0); SODIUM 135 mmol/L (132-148)
[2017-05-30] MEDS ORDERED: Morphine 4 mg/ml ISec IVP ONE (12:30)
--- NOTE | 2017-05-30 13:44 | CP.PCM.PN ---
Subjective - Date & Time of Evaluation Date of Evaluation: 05/30/17 Time of Evaluation: 10:05 - Subjective Subjective: Comfortable, still with back pain, but a little less, no fevers overnight. Objective - Vital Signs/Intake and Output Vital Signs (last 24 hours): Temp Pulse Resp BP Pulse Ox 99.0 F 103 H 19 90/50 L 98 05/29/17 06:00 05/29/17 11:12 05/29/17 06:00 05/29/17 11:12 05/29/17 06:00 Intake and Output: 05/29/17 05/29/17 06:59 18:59 Intake Total 969 Output Total 1000 Balance -31 - Medications Medications: Current Medications Acetaminophen (Tylenol 325mg Tab) 975 mg PO ONCE PRN PRN Reason: Fever >100.4 F Last Admin: 05/25/17 16:15 Dose: 975 mg Acetaminophen (Tylenol 325mg Tab) 650 mg PO Q6H PRN PRN Reason: Fever >100.4 F Last Admin: 05/26/17 17:23 Dose: 650 mg Carvedilol (Coreg) 3.125 mg PO BID [facility] Last Admin: 05/29/17 11:12 Dose: 3.125 mg Clonazepam (Klonopin) 0.5 mg PO TID PRN; Protocol PRN Reason: Agitation Digoxin (Lanoxin) 0.125 mg PO 1400 [facility] Last Admin: 05/28/17 14:18 Dose: 0.125 mg Diltiazem HCl (Cardizem Cd) 180 mg PO DAILY [facility] Last Admin: 05/29/17 11:12 Dose: 180 mg Daptomycin 490 mg/ Sodium (Chloride) 100 mls @ 200 mls/hr IV Q24H [facility] Stop: 06/01/17 19:31 Last Admin: 05/28/17 20:27 Dose: 200 mls/hr Piperacillin Sod/Tazobactam Sod (Zosyn 4.5 Gm In Ns 100ml) 4.5 gm in 100 mls @ 200 mls/hr IVPB Q6 [facility] PRN Reason: Protocol Stop: 06/02/17 12:01 Last Admin: 05/29/17 11:14 Dose: 200 mls/hr Gentamicin Sulfate 200 mg/ (Sodium Chloride) 105 mls @ 105 mls/hr IVPB Q24H [facility] Last Admin: 05/28/17 18:26 Dose: 105 mls/hr Morphine Sulfate (Morphine) 4 mg IVP Q4H PRN PRN Reason: Pain, moderate (4-7) Last Admin: 05/29/17 11:15 Dose: 4 mg Morphine Sulfate (Morphine Extended Release Tab) 30 mg PO Q12 [facility] Last Admin: 05/29/17 11:13 Dose: 30 mg Sennosides (Senokot Tab) 8.6 mg PO DAILY [facility] Last Admin: 05/29/17 10:59 Dose: Not Given - Labs Labs: 05/29/17 11:30 05/29/17 11:30 PT 14.7 Seconds (9.9-11.8) H 05/25/17 16:00 INR 1.36 (0.93-1.08) H 05/25/17 16:00 APTT 33.2 Seconds (23.7-30.8) H 05/25/17 16:00 - Constitutional Appears: Non-toxic, No Acute Distress - Head Exam Head Exam: NORMAL INSPECTION - ENT Exam ENT Exam: Mucous Membranes Moist - Neck Exam Neck Exam: absent: Meningismus - Respiratory Exam Respiratory Exam: Decreased Breath Sounds - Cardiovascular Exam Cardiovascular Exam: +S1, +S2 - GI/Abdominal Exam GI & Abdominal Exam: Soft. absent: Tenderness Assessment and Plan - Assessment and Plan (Free Text) Plan: assessment sepsis due to thoracic area soft tissue infection (recurrence) with methicillin- resistant coagulase negative staph (bacteremia with this as well), Pseudomonas, Acinetobacter - should rule out vertebral osteomyelitis; previously the abscess had MRSA and E. faecalis history of C. diff associated diarrhea Leukopenia without fever, probably related to his Waldenstrom's macroglobulinemia history of intra-abdominal infection/colitis history of Acute sigmoid diverticulitis with abscess formation S/P resection and colostomy placement Waldenstrom's Macroglobinemia currently on chemotherapy atrial fibrillation on anticoagulation Plan continue Daptomycin (the CoNS Vanco DYANA from the previous culture had an DYANA of 1, and this may be problematic for Vancomycin) and Zosyn; continue Gentamicin since the Acinetobacter is resistant to Zosyn and Merrem follow up MRI of thoracic spine which should be done on tomorrow follow up 2D echo; repeat blood cx are negative (05/27/2017) will continue to monitor clinically discussed with Dr. Ward
[2017-05-30] MEDS: Digoxin 125 mcg (0.125 mg) Tab PO SCH (15:16)
[2017-05-30] MEDS ORDERED: Morphine 4 mg/ml ISec IVP PRN (15:53)
[2017-05-31] MEDS: Morphine 4 mg/ml ISec IVP PRN ×4 (02:11→23:59)
[2017-05-31] MEDS: Piperacill/Tazo 4.5gm in NS 4.5 GM/100 ML BAG IVPB SCH ×3 (05:04→18:59)
--- NOTE | 2017-05-31 07:47 | CP.PCM.PN ---
Subjective - Date & Time of Evaluation Date of Evaluation: 05/31/17 Time of Evaluation: 07:44 - Subjective Subjective: General Surgery progress note for Dr. Mas Patient was told he has a MRI today to monitor his back pain for possible osteomyelitis. Patient expresses concern for the procedure. Patient is not tolerating pain well. Patient denies any other complains and concerns at this time. Objective - Vital Signs/Intake and Output Vital Signs (last 24 hours): Temp Pulse Resp BP Pulse Ox 98.0 F 91 H 20 100/70 97 05/31/17 06:00 05/31/17 06:00 05/31/17 06:00 05/31/17 06:00 05/31/17 06:00 Intake and Output: 05/31/17 05/31/17 06:59 18:59 Intake Total 580 Output Total 300 Balance 280 - Medications Medications: Current Medications Acetaminophen (Tylenol 325mg Tab) 975 mg PO ONCE PRN PRN Reason: Fever >100.4 F Last Admin: 05/25/17 16:15 Dose: 975 mg Acetaminophen (Tylenol 325mg Tab) 650 mg PO Q6H PRN PRN Reason: Fever >100.4 F Last Admin: 05/26/17 17:23 Dose: 650 mg Carvedilol (Coreg) 3.125 mg PO BID [facility] Last Admin: 05/30/17 18:45 Dose: Not Given Clonazepam (Klonopin) 0.5 mg PO TID PRN; Protocol PRN Reason: Agitation Digoxin (Lanoxin) 0.125 mg PO 1400 [facility] Last Admin: 05/30/17 15:16 Dose: 0.125 mg Fentanyl (Duragesic) 1 patch TD Q72H [facility] Last Admin: 05/30/17 22:45 Dose: Not Given Daptomycin 490 mg/ Sodium (Chloride) 100 mls @ 200 mls/hr IV Q24H [facility] Stop: 06/01/17 19:31 Last Admin: 05/30/17 20:54 Dose: 200 mls/hr Piperacillin Sod/Tazobactam Sod (Zosyn 4.5 Gm In Ns 100ml) 4.5 gm in 100 mls @ 200 mls/hr IVPB Q6 [facility] PRN Reason: Protocol Stop: 06/02/17 12:01 Last Admin: 05/31/17 05:04 Dose: 200 mls/hr Gentamicin Sulfate 200 mg/ (Sodium Chloride) 105 mls @ 105 mls/hr IVPB Q24H [facility] Last Admin: 05/30/17 20:59 Dose: 105 mls/hr Morphine Sulfate (Morphine Extended Release Tab) 30 mg PO Q12 [facility] Last Admin: 05/30/17 21:02 Dose: 30 mg Morphine Sulfate (Morphine) 4 mg IVP Q3H PRN PRN Reason: Pain, moderate (4-7) Last Admin: 05/31/17 06:22 Dose: 4 mg Sennosides (Senokot Tab) 8.6 mg PO DAILY [facility] Last Admin: 05/30/17 09:27 Dose: Not Given - Labs Labs: 05/30/17 10:45 05/30/17 10:45 PT 14.7 Seconds (9.9-11.8) H 05/25/17 16:00 INR 1.36 (0.93-1.08) H 05/25/17 16:00 APTT 33.2 Seconds (23.7-30.8) H 05/25/17 16:00 - Constitutional Appears: No Acute Distress - Head Exam Head Exam: NORMAL INSPECTION - Eye Exam Eye Exam: EOMI, Normal appearance - ENT Exam ENT Exam: Mucous Membranes Moist - Neck Exam Neck Exam: Full ROM - Respiratory Exam Respiratory Exam: Clear to Ausculation Bilateral. absent: Accessory Muscle Use , Respiratory Distress - Cardiovascular Exam Cardiovascular Exam: REGULAR RHYTHM. absent: Bradycardia, Tachycardia - GI/Abdominal Exam GI & Abdominal Exam: Soft. absent: Tenderness, Pulsatile Mass, Rebound - Neurological Exam Neurological Exam: Alert, Awake, Oriented x3 - Psychiatric Exam Psychiatric exam: Flat Affect, Normal Mood - Skin Skin Exam: Dry, Normal Color, Warm Additional comments: dressing site c/d/i Assessment and Plan - Assessment and Plan (Free Text) Assessment: 51M POD#6 s/p I & D of recurrent back abscess Plan: Daily dressing changes f/u thoracic MRI Mon (r/o osteomyelitis) Rec: cardio consult for anesthesia during MRI Further management as per primary team and consultants Further recommendations per Dr. Mas d/w Dr. Chace Mendez, DO PGY1
[2017-05-31] MEDS ORDERED: Propofol 10 mg/ml 3,000 MG/300 ML VIAL ONE (09:28)
[2017-05-31] MEDS ORDERED: Ketamine 10 mg/ml Inj (20 ml) ONE (10:00)
[2017-05-31] MEDS ORDERED: Midazolam 2 MG/2 ML VIAL ONE (10:01)
[2017-05-31] MEDS ORDERED: Gadodiamide 287 MG/ML VIAL (15ML) IV ONE (10:23)
[2017-05-31] MEDS ORDERED: HYDROmorphone 0.5 mg/0.5 ml ISec IVP STA (12:04)
[2017-05-31] MEDS ORDERED: HYDROmorphone 0.5 mg/0.5 ml ISec ONE (12:08)
--- NOTE | 2017-05-31 13:00 | MRI ---
PROCEDURE: MR THORACIC SPINE WITH AND WITHOUT CONTRAST HISTORY: r/o osteomylitis COMPARISON: None available. TECHNIQUE: Multiecho multiplanar sequences were performed through the thoracic spine with and without the use of intravenous contrast. FINDINGS: ALIGNMENT: Normal thoracic spinal alignment. Normal thoracic kyphosis. VERTEBRA: Moderate compression deformities are seen at T11, T12 and L1. These appear to be chronic with no bone marrow edema. MARROW: No evidence of osteomyelitis or discitis PARASPINAL SOFT TISSUES: Unremarkable. CORD: Unremarkable thoracic cord. No volume loss, signal abnormality or syrinx. DISCS: No disc herniation, spinal canal stenosis, or neuroforaminal narrowing. ENHANCEMENT: No abnormal enhancement. OTHER FINDINGS: There is some subcutaneous edema over the dorsum of the spine consistent with recent surgical debridement IMPRESSION: Moderate compression deformities at T11, T12 and L1. These appear to be chronic. No evidence of osteomyelitis or discitis
[2017-05-31] MEDS: Digoxin 125 mcg (0.125 mg) Tab PO SCH (14:25)
[2017-05-31] MEDS: Morphine 30 mg SR Tab PO SCH ×2 (14:30→22:22)
--- NOTE | 2017-05-31 23:07 | CP.PCM.PN ---
Subjective - Date & Time of Evaluation Date of Evaluation: 05/31/17 Time of Evaluation: 09:00 - Subjective Subjective: DATE: 05/30/2017 SUBJECTIVE: He is comfortable in bed, in no acute distress. He is complaining of pain and is better controlled now. He still has pain while slightest movement even after turning in the bed. No fever. No cough with expectoration. He is currently on IV antibiotics for paraspinal abscess. WC 0.9, hemoglobin 7.3, and platelet count is stable 25,000. No bleeding. He underwent MRI of the back under conscious sedation. REVIEW OF SYSTEMS: As per HPI. Rest of the 12-point review of systems reviewed and negative. PHYSICAL EXAMINATION: GENERAL: Comfortable in bed, in no acute distress. VITAL SIGNS: reviewed. HEENT: Pallor positive. HEENT is negative. CHEST: Air entry present and equal bilaterally. No added sounds. CARDIOVASCULAR: S1 and S2 normal. No murmur. No gallop. ABDOMEN: Soft and nontender. No hepatosplenomegaly. EXTREMITIES: No edema. CENTRAL NERVOUS SYSTEMS: Alert and oriented x3. No focal sensory or motor deficits. MEDICATIONS: Reviewed. LABORATORY DATA: reviewed. ASSESSMENT AND PLAN: 1. Waldenstrom's macroglobulinemia; end-stage disease. Blood count might not recover at all. We will give one dose of Neupogen 480 mcg subcutaneously stat, hemoglobin stable. Prognosis is very poor due to the underlying disease. 2. Pancytopenia. Management as above, 480 mcg of Neupogen today. 3. Paraspinal abscess, sepsis, MRI, no osteomyelitis. on Dapto, myron, genta as per ID. 4. Pain, MS Contin 30 mg b.i.d. and morphine 4 mg q.3 hour p.r.n. fentanyl 12.5 mcgm added. Nancy Ward MD Objective - Vital Signs/Intake and Output Vital Signs (last 24 hours): Temp Pulse Resp BP Pulse Ox 99.6 F 86 20 94/50 L 99 05/31/17 18:13 05/31/17 18:58 05/31/17 18:13 05/31/17 18:58 05/31/17 12:15 - Medications Medications: Current Medications Acetaminophen (Tylenol 325mg Tab) 975 mg PO ONCE PRN PRN Reason: Fever >100.4 F Last Admin: 05/25/17 16:15 Dose: 975 mg Acetaminophen (Tylenol 325mg Tab) 650 mg PO Q6H PRN PRN Reason: Fever >100.4 F Last Admin: 05/26/17 17:23 Dose: 650 mg Carvedilol (Coreg) 3.125 mg PO BID [facility] Last Admin: 05/31/17 18:58 Dose: 3.125 mg Clonazepam (Klonopin) 0.5 mg PO TID PRN; Protocol PRN Reason: Agitation Digoxin (Lanoxin) 0.125 mg PO 1400 [facility] Last Admin: 05/31/17 14:25 Dose: 0.125 mg Fentanyl (Duragesic) 1 patch TD Q72H [facility] Last Admin: 05/30/17 22:45 Dose: Not Given Daptomycin 490 mg/ Sodium (Chloride) 100 mls @ 200 mls/hr IV Q24H [facility] Stop: 06/01/17 19:31 Last Admin: 05/31/17 19:02 Dose: 200 mls/hr Piperacillin Sod/Tazobactam Sod (Zosyn 4.5 Gm In Ns 100ml) 4.5 gm in 100 mls @ 200 mls/hr IVPB Q6 [facility] PRN Reason: Protocol Stop: 06/02/17 12:01 Last Admin: 05/31/17 18:59 Dose: 200 mls/hr Gentamicin Sulfate 200 mg/ (Sodium Chloride) 105 mls @ 105 mls/hr IVPB Q24H [facility] Last Admin: 05/31/17 19:02 Dose: 105 mls/hr Morphine Sulfate (Morphine Extended Release Tab) 30 mg PO Q12 [facility] Last Admin: 05/31/17 22:22 Dose: 30 mg Morphine Sulfate (Morphine) 4 mg IVP Q3H PRN PRN Reason: Pain, moderate (4-7) Last Admin: 05/31/17 19:01 Dose: 4 mg Sennosides (Senokot Tab) 8.6 mg PO DAILY [facility] Last Admin: 05/31/17 14:31 Dose: Not Given - Labs Labs: 05/30/17 10:45 05/30/17 10:45 PT 14.7 Seconds (9.9-11.8) H 05/25/17 16:00 INR 1.36 (0.93-1.08) H 05/25/17 16:00 APTT 33.2 Seconds (23.7-30.8) H 05/25/17 16:00
[2017-06-01] MEDS: Morphine 4 mg/ml ISec IVP PRN ×4 (04:22→21:37)
--- NOTE | 2017-06-01 04:35 | CON ---
REASON FOR CONSULTATION: Preop evaluation, risk stratification for cardiac clearance under anesthesia before surgery. BRIEF CLINICAL HISTORY: This is a 51-year-old male with past medical history significant for Waldenstrom macroglobulinemia, history of Nneka procedure in March this year with ostomy bag for diverticular colonic disease, presented with bag infection at the back and operation. Cardiology consult is called for preop evaluation and risk stratification under general anesthesia. Currently, the patient is on chemotherapy. PAST HISTORY: Significant for atrial fibrillation, morbid obesity, aortic regurgitation, chronic atrial fibrillation, nonobstructive coronary artery disease, status post multiple myeloma, Waldenstrom globulinemia, history of diverticular colonic disease, abscesses, status post colostomy, who was admitted with sepsis and back wound requiring OR, history of anemia, history of pancytopenia, history of thrombocytopenia, history of septic shock. PREVIOUS CARDIAC WORKUP FOLLOWS: The patient had a cardiac catheterization that showed essentially normal coronaries. Most recently echo dated 09/19/2016 shows normal LV size, left ventricular hypertrophy, ejection fraction severely reduced, right ventricular systolic pressure of 90 consisted with severe pulmonary hypertension, severe tricuspid regurgitation, trace aortic regurgitation, moderate valvular aortic stenosis. CURRENT MEDICATIONS: The patient at home was taking carvedilol, digoxin, acetaminophen. REVIEW OF SYSTEMS: As per HPI. PHYSICAL EXAMINATION: VITAL SIGNS: Temperature afebrile, heart rate 107, blood pressure 101/56. HEENT: PERRLA. Extraocular muscles intact. NECK: Supple. No carotid bruit or thyromegaly. CHEST: Clear to auscultation. HEART: S1 and S2 regular. ABDOMEN: Soft. EXTREMITIES: Clubbing and cyanosis negative. EKG shows atrial fibrillation at 116. Telemetry shows atrial fibrillation at rate of 81. LABORATORY DATA: Blood workup as follows: WBC 0.9, hemoglobin 7.3, hematocrit 23.8, platelet count 25. Chemistry shows sodium 130, potassium 4.2, chloride 96, carbon dioxide 35, anion gap 12, BUN 6, creatinine 0.6. Coagulation profile, INR 1.36. IMPRESSION: A 51-year-old male with past medical history significant for Waldenstrom macroglobulinemia, moderate aortic stenosis, severe mitral regurgitation, tricuspid regurgitation, normal coronaries, admitted with sepsis, on chemotherapy, pancytopenia, neutropenia. Most recent echo done day before yesterday that shows systolic function is mildly impaired, calculated ejection fraction 47%, aortic valve severely thickened, bicuspid, mild aortic regurgitation, moderate valvular aortic stenosis, mild pulmonary hypertension, mitral valve moderately thickened, considered transesophageal echocardiography was recommended, preop evaluation for possible back wound surgery, pancytopenia. RECOMMENDATION: The patient is at high risk for any invasive procedure because of underlying comorbidity, but to save his life when the patient's neutropenia is resolved, consider incision and drainage if needed. We will follow with you. Overall, the patient's condition is critical. Prior to that, the patient had echo on 09/29/2016 that shows valve area of 1.1 cm to 1.2 cm sq, [id number] aortic regurgitation, mild mitral regurgitation, moderate tricuspid, RV systolic pressure 73. The patient had a cardiac catheterization on 11/14/2012 that shows nonobstructive coronary artery disease; coronary ectasia; large-caliber vessel; dilated ventricle; mildly decreased LV function; aortic regurgitation of unknown severity at least moderate at the time dated 11/14/2012. At that time, the cardiac catheterization revealed severe coronary ectasia in the left main and LAD as well as circumflex. No significant obstructive disease, dated cath 11/14/2012. We will get lipid profile, TSH, hemoglobin A1c. We will get a MUGA scan to assess LV function. We will follow with you. Thank you Dr. Ward for providing us the opportunity in taking care of the patient. Driss Contreras MD
[2017-06-01] MEDS: Piperacill/Tazo 4.5gm in NS 4.5 GM/100 ML BAG IVPB SCH ×5 (05:47→23:40)
[2017-06-01 07:41] LABS: MEAN CELL VOLUME 100.9 fl (80.0-105.0); MEAN CORPUSCULAR HEMOGLOBIN 31.5 pg (25.0-35.0); MEAN CORPUSCULAR HGB CONC 31.2 g/dl (31.0-37.0); MEAN PLATELET VOLUME 9.4 fl (7.0-11.0); RED CELL DISTRIBUTION WIDTH 19.5 % (11.5-14.5)
[2017-06-01 07:45] LABS: WHITE BLOOD COUNT 1.3 10^3/ul (4.5-11.0)
[2017-06-01 07:46] LABS: HEMATOCRIT 21.8 % (42.0-52.0); PLATELET COUNT 23 10^3/uL (120.0-450.0)
[2017-06-01 07:50] LABS: BLOOD UREA NITROGEN 9 mg/dL (7-21); CALCIUM 8.6 mg/dL (8.4-10.5); CARBON DIOXIDE 35 mmol/L (21-33); CHLORIDE 92 mmol/L (95-110); GFR AFRICAN-AMERICAN > 60; GLUCOSE,RANDOM 88 mg/dL (70-110); POTASSIUM 4.2 mmol/L (3.6-5.0); SODIUM 133 mmol/L (132-148)
--- NOTE | 2017-06-01 08:09 | CP.PCM.PN ---
Subjective - Date & Time of Evaluation Date of Evaluation: 06/01/17 Time of Evaluation: 08:05 - Subjective Subjective: General Surgery progress note for Dr. Mas PT S&E at bedside. CANDICE. Patient had MRI yesterday. Results: compression deformities at T11, T12, L1. no evidence of osteomyelitis or discitis Patient is not tolerating pain well. Patient denies any other complains and concerns at this time. Objective - Vital Signs/Intake and Output Vital Signs (last 24 hours): Temp Pulse Resp BP Pulse Ox 99.6 F 86 20 94/50 L 99 05/31/17 18:13 05/31/17 22:00 05/31/17 18:13 05/31/17 18:58 05/31/17 12:15 Intake and Output: 06/01/17 06/01/17 06:59 18:59 Intake Total 120 Output Total 800 Balance -680 - Medications Medications: Current Medications Acetaminophen (Tylenol 325mg Tab) 975 mg PO ONCE PRN PRN Reason: Fever >100.4 F Last Admin: 05/25/17 16:15 Dose: 975 mg Acetaminophen (Tylenol 325mg Tab) 650 mg PO Q6H PRN PRN Reason: Fever >100.4 F Last Admin: 05/26/17 17:23 Dose: 650 mg Carvedilol (Coreg) 3.125 mg PO BID [facility] Last Admin: 05/31/17 18:58 Dose: 3.125 mg Clonazepam (Klonopin) 0.5 mg PO TID PRN; Protocol PRN Reason: Agitation Digoxin (Lanoxin) 0.125 mg PO 1400 [facility] Last Admin: 05/31/17 14:25 Dose: 0.125 mg Fentanyl (Duragesic) 1 patch TD Q72H [facility] Last Admin: 05/30/17 22:45 Dose: Not Given Daptomycin 490 mg/ Sodium (Chloride) 100 mls @ 200 mls/hr IV Q24H [facility] Stop: 06/01/17 19:31 Last Admin: 05/31/17 19:02 Dose: 200 mls/hr Piperacillin Sod/Tazobactam Sod (Zosyn 4.5 Gm In Ns 100ml) 4.5 gm in 100 mls @ 200 mls/hr IVPB Q6 [facility] PRN Reason: Protocol Stop: 06/02/17 12:01 Last Admin: 06/01/17 05:47 Dose: 200 mls/hr Gentamicin Sulfate 200 mg/ (Sodium Chloride) 105 mls @ 105 mls/hr IVPB Q24H [facility] Last Admin: 05/31/17 19:02 Dose: 105 mls/hr Morphine Sulfate (Morphine Extended Release Tab) 30 mg PO Q12 [facility] Last Admin: 05/31/17 22:22 Dose: 30 mg Morphine Sulfate (Morphine) 4 mg IVP Q3H PRN PRN Reason: Pain, moderate (4-7) Last Admin: 06/01/17 04:22 Dose: 4 mg Sennosides (Senokot Tab) 8.6 mg PO DAILY [facility] Last Admin: 05/31/17 14:31 Dose: Not Given - Labs Labs: 06/01/17 07:10 06/01/17 07:10 PT 14.7 Seconds (9.9-11.8) H 05/25/17 16:00 INR 1.36 (0.93-1.08) H 05/25/17 16:00 APTT 33.2 Seconds (23.7-30.8) H 05/25/17 16:00 - Constitutional Appears: No Acute Distress - Head Exam Head Exam: NORMAL INSPECTION - Eye Exam Eye Exam: EOMI, Normal appearance - ENT Exam ENT Exam: Mucous Membranes Moist - Neck Exam Neck Exam: Full ROM - Respiratory Exam Respiratory Exam: NORMAL BREATHING PATTERN. absent: Accessory Muscle Use, Respiratory Distress - Cardiovascular Exam Cardiovascular Exam: REGULAR RHYTHM. absent: Bradycardia, Tachycardia - GI/Abdominal Exam GI & Abdominal Exam: Soft. absent: Tenderness - Extremities Exam Extremities Exam: Full ROM, Normal Inspection. absent: Pedal Edema - Neurological Exam Neurological Exam: Alert, Awake, Oriented x3 - Psychiatric Exam Psychiatric exam: Normal Affect, Normal Mood - Skin Skin Exam: Dry, Normal Color, Warm Additional comments: dressings changed at bedside. Assessment and Plan - Assessment and Plan (Free Text) Assessment: 51M POD#7 s/p I & D of recurrent back abscess Plan: Daily dressing changes Further management as per primary team and consultations Further recommendations per Dr. Mas d/w Dr. Chace Mendez, DO PGY1
[2017-06-01 08:20] LABS: GRAN % 87.6 % (50.0-68.0); LYMPH % 8.5 % (22.0-35.0); MONO % 3.9 % (1.0-6.0)
[2017-06-01 08:21] LABS: GRAN # 1.13 (1.4-6.5); LYMPH # 0.1 (1.2-3.4); MONO # 0.1 (0.1-0.6); PLATELET ESTIMATE LOW (NORMAL)
[2017-06-01] MEDS: Morphine 30 mg SR Tab PO SCH ×3 (09:23→23:40)
--- NOTE | 2017-06-01 15:37 | PN ---
SUBJECTIVE: The patient is [id number], who was admitted on 05/25/2017 with worsening back pain. The patient has multiple admissions. He has complicated past medical history including Waldenstrom macroglobulinemia, currently under care of a doctor in [place], history of pancytopenia, chronic atrial fibrillation, thrombocytopenia status post colostomy. The patient was found to have wound in mid-back area that is growing pseudomonas aeruginosa acinetobacter baumannii and coagulase negative Staphylococcus and he was also found to have positive blood culture. Currently he is on antibiotic. PHYSICAL EXAMINATION: GENERAL: Today, he is awake, alert, oriented, anxious and worried about his situation. VITAL SIGNS: He is afebrile, pulse 83, respirations 20, blood pressure 96/61. LUNGS: Bilateral good airflow. No rhonchi or crackles. HEART: S1 and S2 audible. Irregular rate control. ABDOMEN: Soft. Obese. Colostomy is functional, no blood in the colostomy bag. He has large abdominal fold hanging on the sides of his abdominal girth. His mid-thoracic wound is covered. EXTREMITIES: Bilateral leg +1 edema with scaly dermatitis. LABORATORY DATA: WBC 1.3, hemoglobin 6.8, hematocrit 21.8, platelet count 23. Chemistry shows sodium 133, potassium 4.2, chloride 92, carbon dioxide 35, BUN 9, creatinine 0.6. Blood sugar of 88. He had thoracic spine MRI done that is unremarkable for osteomyelitis. ASSESSMENT AND PLAN: 1. Coagulase negative Staphylococcus bacteremia, currently on antibiotic. Repeat cultures are negative. 2. Pseudomonas aeruginosa acinetobacter and coagulase negative Staphylococcus wound infection. 3. Morbid obesity. 4. Chronic atrial fibrillation. 5. Waldenstrom macroglobulinemia. 6. Pancytopenia status post multiple blood transfusion. 7. Chronic back pain. PLAN: Currently, the patient is on daptomycin as per Infectious Disease recommendation. Discussed with Dr. Contreras who ordered for echocardiogram to continue him on fentanyl patch. He is also getting MS Contin for his pain control. Continue to monitor his CBC, CMP, and electrolyte. Pepito Gavin MD
--- NOTE | 2017-06-01 16:06 | PN ---
DATE: 06/01/2017 SUBJECTIVE: The patient is in bed, in no acute distress, was seen earlier in room 269. PHYSICAL EXAMINATION: VITAL SIGNS: Temperature is 99, blood pressure is 100/60, respiratory rate of 20, heart rate of 99. HEENT: Unremarkable. NECK: Supple. LUNGS: Decreased breath sounds. HEART: Normal S1 and S2. ABDOMEN: Soft. LABORATORY DATA: Reveals the patient's white count of 1.3, hemoglobin of 6.8, platelets of 23, coagulation is noted and chemistries reveals a BUN of 9, creatinine of 0.6. Urinalysis is noted. Microbiology is reviewed. Repeat blood cultures have no growth and review of the orders reveals the patient to be on daptomycin and Zosyn. The patient had MRI of the thoracic spine. No evidence of osteomyelitis or discitis. ASSESSMENT AND PLAN: He is a 51-year-old male with sepsis in the thoracic soft tissue, MRSA with bacteriemia as well and pseudomonas and Citrobacter. MRI is negative for osteomyelitis. Currently on daptomycin and Zosyn, we treated soft tissue infection since the MRI is negative on daptomycin and Zosyn. Anatoliy Luna MD
[2017-06-01] MEDS: Digoxin 125 mcg (0.125 mg) Tab PO SCH (16:12)
--- NOTE | 2017-06-01 21:39 | PN ---
DATE: 06/01/2017 REASON FOR CONSULTATION: Followup preop evaluation, risk stratification for cardiac clearance under anesthesia before surgery. SUBJECTIVE: The patient is lying flat on the bed. Denies any chest pain, shortness of breath or any palpitation. OBJECTIVE: GENERAL: Lying flat on the bed, not in apparent distress. The patient does not need to go to the OR. VITAL SIGNS: Temperature afebrile, heart rate is 83, blood pressure 97/61. HEENT EXAM: PERRLA. Extraocular muscles intact. NECK: Supple. No carotid bruit. No thyromegaly. CHEST: Clear to auscultation. HEART: S1 and S2, regular. ABDOMEN: Soft. EXTREMITIES: Clubbing and cyanosis is negative. LABORATORY DATA: Blood workup as follows: WBC 1.3, hemoglobin 6.8, hematocrit 21.8 and platelet count 23. Chemistry shows sodium 130, potassium 4.2, chloride 92, carbon dioxide 35, anion gap 10, BUN 9, creatinine 0.9. ASSESSMENT: A 51-year-old male with past medical history significant for multiple chemo, pancytopenia, anemia, neutropenia, thrombocytopenia, also has on the back bag wound. MRI shows no evidence of osteomyelitis. Status post cardiac catheterization, normal coronaries. Admitted with back wound; preop evaluation, risk stratification for back surgery; cardiology consult was called. The patient had echocardiography done yesterday that showed ejection fraction mildly impaired; severely thickened aortic valve, bicuspid; mild aortic regurgitation; moderate aortic stenosis; mild pulmonary hypertension, moderately thickened. Prior echo showed decreased left ventricular function, severely; right ventricular systolic pressure 90, consistent with severe pulmonary hypertension; severe tricuspid regurgitation; moderate valvular aortic stenosis; chronic atrial fibrillation. Last most recent echo showed valve area of 1.2 sq cm; [id number] aortic regurgitation, dated 09/29/2016. RECOMMENDATION: We will get MUGA scan to assess LV function. Continue antibiotic. The patient does not need surgery; if the patient needs surgery, the patient can go for the high risk because of underlying comorbidity and renal insufficiency; history of chronic atrial fibrillation, on anticoagulation. If the surgery is not planned again and is canceled consider restarting anticoagulation when the platelet count improves because now starting anticoagulation is high risk for spontaneous bleeding, the patient is pancytopenic including severe thrombocytopenia; for now, we will hold platelet count until the platelet improves above 50,000, again consider restarting anticoagulation. Continue broad-spectrum antibiotic. Continue digoxin. Overall, the patient's condition is critical, long-term prognosis is extremely guarded. Thank you Dr. Ward for providing us the opportunity in taking care of the patient. We will follow with you. Driss Contreras MD
--- NOTE | 2017-06-01 23:09 | CON ---
DATE: 06/01/2017 HISTORY OF PRESENT ILLNESS: The patient is a 51-year-old white male. The patient is known to me as an outpatient from past consultations in the hospital. He has a history of recurrent depression. He is currently being treated for sepsis, related to Waldenstrom macroglobulinemia, he is also pancytopenic. PAST HISTORY: The patient's past history also includes chronic pain. He has pancytopenia. He has history of atrial fibrillation, congestive heart failure, hypertension, COPD, recurrent blood transfusions. He has had colostomy due to diverticulitis. The patient is very debilitated and was unable to walk due to his debilitation. The patient has also been treated over the years for recurrent depression and severe generalized anxiety. He also has severe chronic pain. The patient also has had wound culture from his back indicating MRSA and Enterococcal faecalis. LABORATORY DATA: The patient's current laboratory data: His white count is 1300, hemoglobin is 6.8, hematocrit 21.8, and platelet count 23,000. His most recent metabolic profile, he has a sodium of 133, potassium 4.2, chloride 92, CO2 of 35, anion gap 10, BUN 9, creatinine 0.6, estimated GFR greater than 60. His most recent total bilirubin is 1.4, most recent albumin is 2.6. The patient has had a thoracic spine MRI without any evidence of osteomyelitis. He does have moderate compression deformities of T11, T12, and L1, which appears to be chronic in nature. The patient has had an echocardiogram with a normal ventricle size, normal left ventricular wall thickness, severely thickened aortic valve. He has mild aortic regurgitation, moderate valvular aortic stenosis, mild pulmonary hypertension. MEDICATIONS: The patient's current medications include Coreg; daptomycin; fentanyl; gentamicin IV; has an order for p.r.n. Klonopin; digoxin 0.125 mg; morphine, he has an order for 4 mg IVP q.3 hours and morphine sulfate q.12 hours. In the past, he was also on Zosyn IV q.6 hours. I reviewed call center consultant's notes including Cardiology, Infectious Disease, and surgical consults. PERSONAL HISTORY: He is . Lives with his . He has a son. He has been on disability for several years. The patient has no history of alcohol or substance abuse. PHYSICAL EXAMINATION: VITAL SIGNS: Blood pressure 97/61, pulse 83, respirations 20 per minute, and afebrile. PSYCHIATRIC: Mental status, he has depressed face. His speech is soft. He has psychomotor retardation. He is oriented x3, recognizes and he is aware of his medical problems. Complains of severe pain. The patient does not sleep through the night. Last night, the patient went to [facility], he received 4 mg of IV morphine at 0422. IMPRESSION: He has severe sepsis. He has Waldenstrom macroglobulinemia and Pancytopenia He has a history of severe depression and insomnia, he has history of atrial fibrillation, he is opioid dependent. Apparently, he has congestive heart failure, hypertension, mild pulmonary hypertension, chronic obstructive pulmonary disease, history of colostomy, and bowel surgery. PLAN: We will order mirtazapine 15 mg at bedtime for depression and for insomnia, and reevaluate tomorrow. Alton Guthrie MD [id number]
[2017-06-02] MEDS: Morphine 4 mg/ml ISec IVP PRN ×7 (00:38→23:17)
[2017-06-02] MEDS: Piperacill/Tazo 4.5gm in NS 4.5 GM/100 ML BAG IVPB SCH ×2 (06:00→12:09)
[2017-06-02 07:08] LABS: GRAN # 1.05 (1.4-6.5); LYMPH # 0.2 (1.2-3.4); MEAN CELL VOLUME 101.9 fl (80.0-105.0); MEAN CORPUSCULAR HEMOGLOBIN 31.3 pg (25.0-35.0); MEAN CORPUSCULAR HGB CONC 30.7 g/dl (31.0-37.0); MEAN PLATELET VOLUME 9.8 fl (7.0-11.0); MONO # 0.1 (0.1-0.6); RED CELL DISTRIBUTION WIDTH 19.7 % (11.5-14.5)
[2017-06-02 07:13] LABS: ALB/GLOB RATIO 0.8 (1.1-1.8); ALKALINE PHOSPHATASE 53 U/L (38-126); ALT/SGPT 31 U/L (7-56); AST/SGOT 15 U/L (17-59); BILIRUBIN,TOTAL 1.7 mg/dL (0.2-1.3); BLOOD UREA NITROGEN 9 mg/dL (7-21); CALCIUM 8.3 mg/dL (8.4-10.5); CARBON DIOXIDE 37 mmol/L (21-33); CHLORIDE 94 mmol/L (95-110); GFR AFRICAN-AMERICAN > 60; GLUCOSE,RANDOM 93 mg/dL (70-110); POTASSIUM 4.1 mmol/L (3.6-5.0); SODIUM 137 mmol/L (132-148); TOTAL PROTEIN 6.5 g/dL (5.8-8.3)
[2017-06-02 07:29] LABS: HEMATOCRIT 21.5 % (42.0-52.0); WHITE BLOOD COUNT 1.3 10^3/ul (4.5-11.0)
[2017-06-02 07:30] LABS: PLATELET COUNT 26 10^3/uL (120.0-450.0)
--- NOTE | 2017-06-02 07:42 | CP.PCM.PN ---
Subjective - Date & Time of Evaluation Date of Evaluation: 06/02/17 Time of Evaluation: 07:40 - Subjective Subjective: General Surgery progress note for Dr. Mas PT S&E at bedside. CANDICE. Patient had pain medication overnight. Patient denies any other complains and concerns at this time. Patient is told his white count is still low. Objective - Vital Signs/Intake and Output Vital Signs (last 24 hours): Temp Pulse Resp BP Pulse Ox 98.9 F 93 H 18 87/54 L 95 06/02/17 06:00 06/02/17 06:00 06/02/17 06:00 06/02/17 06:00 06/02/17 06:00 Intake and Output: 06/02/17 06/02/17 06:59 18:59 Intake Total 780 Output Total 1680 Balance -900 - Medications Medications: Current Medications Acetaminophen (Tylenol 325mg Tab) 975 mg PO ONCE PRN PRN Reason: Fever >100.4 F Last Admin: 05/25/17 16:15 Dose: 975 mg Acetaminophen (Tylenol 325mg Tab) 650 mg PO Q6H PRN PRN Reason: Fever >100.4 F Last Admin: 05/26/17 17:23 Dose: 650 mg Carvedilol (Coreg) 3.125 mg PO BID [facility] Last Admin: 06/01/17 18:05 Dose: 3.125 mg Clonazepam (Klonopin) 0.5 mg PO TID PRN; Protocol PRN Reason: Agitation Digoxin (Lanoxin) 0.125 mg PO 1400 [facility] Last Admin: 06/01/17 16:12 Dose: 0.125 mg Fentanyl (Duragesic) 1 patch TD Q72H [facility] Last Admin: 05/30/17 22:45 Dose: Not Given Piperacillin Sod/Tazobactam Sod (Zosyn 4.5 Gm In Ns 100ml) 4.5 gm in 100 mls @ 200 mls/hr IVPB Q6 [facility] PRN Reason: Protocol Stop: 06/02/17 12:01 Last Admin: 06/02/17 06:00 Dose: 200 mls/hr Gentamicin Sulfate 200 mg/ (Sodium Chloride) 105 mls @ 105 mls/hr IVPB Q24H [facility] Last Admin: 06/01/17 18:21 Dose: 105 mls/hr Mirtazapine (Remeron) 15 mg PO HS [facility] Last Admin: 06/01/17 21:38 Dose: 15 mg Morphine Sulfate (Morphine Extended Release Tab) 30 mg PO Q12 [facility] Last Admin: 06/01/17 23:40 Dose: 30 mg Morphine Sulfate (Morphine) 4 mg IVP Q3H PRN PRN Reason: Pain, moderate (4-7) Last Admin: 06/02/17 07:20 Dose: 4 mg Sennosides (Senokot Tab) 8.6 mg PO DAILY [facility] Last Admin: 06/01/17 10:00 Dose: Not Given - Labs Labs: 06/02/17 06:38 06/02/17 06:38 PT 14.7 Seconds (9.9-11.8) H 05/25/17 16:00 INR 1.36 (0.93-1.08) H 05/25/17 16:00 APTT 33.2 Seconds (23.7-30.8) H 05/25/17 16:00 - Constitutional Appears: Non-toxic, Older Than Stated Age, Chronically Ill - Head Exam Head Exam: NORMAL INSPECTION - Eye Exam Eye Exam: EOMI, Normal appearance - ENT Exam ENT Exam: Mucous Membranes Moist - Neck Exam Neck Exam: Full ROM - Respiratory Exam Respiratory Exam: Clear to Ausculation Bilateral. absent: Accessory Muscle Use , Respiratory Distress - Cardiovascular Exam Cardiovascular Exam: Tachycardia, REGULAR RHYTHM - GI/Abdominal Exam GI & Abdominal Exam: Soft, Normal Bowel Sounds. absent: Tenderness, Pulsatile Mass - Extremities Exam Extremities Exam: Full ROM, Normal Inspection. absent: Pedal Edema - Back Exam Back Exam: tenderness Additional comments: wound in back, dressing changes by wound care team - Neurological Exam Neurological Exam: Alert, Awake, Oriented x3 - Psychiatric Exam Psychiatric exam: Normal Affect, Normal Mood - Skin Skin Exam: Dry, Pallor, Warm Assessment and Plan - Assessment and Plan (Free Text) Assessment: 51M s/p I & D of recurrent back abscess Plan: Daily dressing changes per wound care team Further management as per primary team and consultations possibility of OR for debridement if patient's wound continues having drainage d/w Dr. Chace Mendez, DO PGY1
[2017-06-02] MEDS: Morphine 30 mg SR Tab PO SCH ×2 (10:46→21:11)
--- NOTE | 2017-06-02 11:07 | CARD ---
APPROVED REPORT PROCEDURE The above named patient recieved 25.2 millicuries of Tc99m tagged red blood cells intravenously. After achieving equilibrium, gated imaging of 16/frame/cycle was performed utillizing Gamma camera interfaced with a digital computer and gated device. Gated imaging was then performed in the left anterior oblique, anterior, and the left lateral projections. Findings Left Ventricle: The quality of the study is good. The left ventricle is within normal limits in size. The right ventricle is normal in size. Wall motion study shows good contractility of the left ventricle. RV wall motion is normal. The right atrium is dynamic.. The spleen appears enlarged. The remainder of the study is unremarkable. Impressions Normal gated wall motion of left ventricle wall. LVEF = 57%. Normal RV wall motion. Splenomegaly.
[2017-06-02] MEDS ORDERED: DAPTOmycin 500 mg Inj (Cubicin) IV SCH (11:15)
[2017-06-02] MEDS ORDERED: DAPTOmycin 600 MG in Sodium Chloride 0.9% 100 ML IV SCH (11:30)
--- NOTE | 2017-06-02 14:20 | PN ---
DATE: SUBJECTIVE: The patient is a 51 years old male, seen and examined, lying in bed, does not offer any complaints, and seemed to be depressed. No fever or chills. Eating fair. PHYSICAL EXAMINATION: VITAL SIGNS: The patient is afebrile, pulse 93, respirations 18, and blood pressure 100/60. LUNGS: Bilateral air flow. No rhonchi or crackles. HEART: S1 and S2 audible. ABDOMEN: Soft and obese. Colostomy in place and is functional. No bleeding from the colostomy stoma. EXTREMITIES: His mid back wound is in dressing. Bilateral leg +1 edema with scaly and dry skin. LABORATORY EXAM: WBC is 1.3, hemoglobin 6.6, hematocrit 21.5, and platelet of 26. Chemistry: Sodium 137, potassium 4.1, chloride 94, CO2 of 37, BUN 9, and creatinine 0.6. Blood sugar of 93. Total bili 1.7. ASSESSMENT: 1. Status post Staphylococcus bacteremia, repeat blood cultures negative. 2. Pseudomonas aeruginosa and Acinetobacter wound infection of mid thoracic area. 3. Morbid obesity. 4. Pancytopenia. 5. Waldenstrom macroglobulinemia. 6. Chronic atrial fibrillation. 7. History of depression, evaluated by Dr. Guthrie. PLAN: The patient will be given red blood transfusion. We will continue his current pain management. He is getting Coreg. He has been started on tramadol and he is getting gentamicin and as per ID recommendation, we will follow up with CBC in a.m. and then talk to the oncologist in [place] to update the patient's situation. Pepito Gavin MD
[2017-06-02] MEDS: Digoxin 125 mcg (0.125 mg) Tab PO SCH (14:34)
--- NOTE | 2017-06-02 16:47 | CP.PCM.PN ---
Subjective - Date & Time of Evaluation Date of Evaluation: 06/02/17 Time of Evaluation: 16:05 - Subjective Subjective: Still with back pain, but slowly improving, no fevers overnight. Objective - Vital Signs/Intake and Output Vital Signs (last 24 hours): Temp Pulse Resp BP Pulse Ox 98.9 F 93 H 18 87/54 L 95 06/02/17 06:00 06/02/17 06:00 06/02/17 06:00 06/02/17 06:00 06/02/17 06:00 Intake and Output: 06/02/17 06/02/17 06:59 18:59 Intake Total 780 Output Total 1680 Balance -900 - Medications Medications: Current Medications Acetaminophen (Tylenol 325mg Tab) 975 mg PO ONCE PRN PRN Reason: Fever >100.4 F Last Admin: 05/25/17 16:15 Dose: 975 mg Acetaminophen (Tylenol 325mg Tab) 650 mg PO Q6H PRN PRN Reason: Fever >100.4 F Last Admin: 05/26/17 17:23 Dose: 650 mg Carvedilol (Coreg) 3.125 mg PO BID [facility] Last Admin: 06/02/17 10:46 Dose: 3.125 mg Clonazepam (Klonopin) 0.5 mg PO TID PRN; Protocol PRN Reason: Agitation Daptomycin (Cubicin) 600 mg 6 mg/kg (600 mg) IV Q24H [facility] PRN Reason: Protocol Stop: 06/07/17 11:16 Digoxin (Lanoxin) 0.125 mg PO 1400 [facility] Last Admin: 06/01/17 16:12 Dose: 0.125 mg Fentanyl (Duragesic) 1 patch TD Q72H [facility] Last Admin: 05/30/17 22:45 Dose: Not Given Piperacillin Sod/Tazobactam Sod (Zosyn 4.5 Gm In Ns 100ml) 4.5 gm in 100 mls @ 200 mls/hr IVPB Q6 [facility] PRN Reason: Protocol Stop: 06/02/17 12:01 Last Admin: 06/02/17 06:00 Dose: 200 mls/hr Gentamicin Sulfate 200 mg/ (Sodium Chloride) 105 mls @ 105 mls/hr IVPB Q24H [facility] Last Admin: 06/01/17 18:21 Dose: 105 mls/hr Mirtazapine (Remeron) 15 mg PO HS [facility] Last Admin: 06/01/17 21:38 Dose: 15 mg Morphine Sulfate (Morphine Extended Release Tab) 30 mg PO Q12 [facility] Last Admin: 06/02/17 10:46 Dose: 30 mg Morphine Sulfate (Morphine) 4 mg IVP Q3H PRN PRN Reason: Pain, moderate (4-7) Last Admin: 06/02/17 07:20 Dose: 4 mg Sennosides (Senokot Tab) 8.6 mg PO DAILY [facility] Last Admin: 06/02/17 10:45 Dose: 8.6 mg - Labs Labs: 06/02/17 06:38 06/02/17 06:38 PT 14.7 Seconds (9.9-11.8) H 05/25/17 16:00 INR 1.36 (0.93-1.08) H 05/25/17 16:00 APTT 33.2 Seconds (23.7-30.8) H 05/25/17 16:00 - Constitutional Appears: Non-toxic, No Acute Distress - Head Exam Head Exam: NORMAL INSPECTION - ENT Exam ENT Exam: Mucous Membranes Moist - Neck Exam Neck Exam: absent: Lymphadenopathy, Meningismus - Respiratory Exam Respiratory Exam: Decreased Breath Sounds - Cardiovascular Exam Cardiovascular Exam: +S1, +S2 - GI/Abdominal Exam GI & Abdominal Exam: Soft. absent: Tenderness Assessment and Plan - Assessment and Plan (Free Text) Plan: assessment sepsis due to thoracic area soft tissue infection (recurrence) with methicillin- resistant coagulase negative staph (bacteremia with this as well), Pseudomonas, Acinetobacter - no evidence of vertebral osteomyelitis on MRI; previously the abscess had MRSA and E. faecalis history of C. diff associated diarrhea Leukopenia without fever, probably related to his Waldenstrom's macroglobulinemia history of intra-abdominal infection/colitis history of Acute sigmoid diverticulitis with abscess formation S/P resection and colostomy placement Waldenstrom's Macroglobinemia currently on chemotherapy atrial fibrillation on anticoagulation Plan continue Daptomycin (the CoNS Vanco DYANA from the previous culture had an DYANA of 1, and this may be problematic for Vancomycin) and Zosyn and Gentamicin since the Acinetobacter is resistant to Zosyn and Merrem 2D echo does not show vegetations but the valves are thickened - MARIANNA should be considered; repeat blood cx are negative (05/27/2017) will continue to monitor clinically
--- NOTE | 2017-06-02 17:57 | PN ---
DATE: SUBJECTIVE: The patient is a 51-year-old male currently being treated for sepsis related to soft tissue infection and Waldenstrom's macroglobulinemia. The patient has a pseudomonas aeruginosa bacterial wound infection in the thoracic area. The patient has had a history of recurrent depressive disorder. The patient has been started mirtazapine 15 mg at bedtime. He has chronic pain for which he is receiving OxyContin and IV morphine. MENTAL STATUS EXAMINATION: The patient's current mental status reveals that he is awake, alert, coherent, lucid with depressed facies, his thinking was rational. Affect is appropriate to mood. He is aware of his medical problems and the nature of his current treatment which he today will be getting a transfusion. CURRENT MEDICATIONS: Include Coreg, Duragesic patch, gentamicin, Lanoxin, p.r.n. 4 mg of IV morphine q.3 hours, morphine extended release 30 mg q.12 hours. LABORATORY DATA: His white count is 1300, hemoglobin 6.6, hematocrit 21.5, platelet count 26,000. The patient's metabolic profile; sodium 137, potassium 4.1, chloride 94, CO2 37, anion gap 10, BUN 9, creatinine is 0.6, random glucose 93, calcium 8.3, total bilirubin 1.7. AST, ALT, alkaline phosphatase were within normal range. Albumin is 2.8. PHYSICAL EXAMINATION VITAL SIGNS: His blood pressure is 87/54, pulse is 93, temperature is 98.9 oral, respirations 18 per minute. IMPRESSION: Sepsis, severe pain secondary to compression fractures of the thoracic spine, Waldenstrom's macroglobulinemia, wounds infection, severe anemia, pancytopenia, depressive disorder secondary to above medical problems. PLAN: We will continue mirtazapine 15 mg at bedtime and we will continue to monitor mental status. Alton Guthrie MD
--- NOTE | 2017-06-02 19:12 | PN ---
DATE: 06/02/2017 REASON FOR CONSULTATION: Followup, preoperative evaluation, risk stratification for cardiac clearance under anesthesia before surgery. SUBJECTIVE: The patient is 51. The patient is lying flat in bed. Denies any chest pain, shortness of breath, or any palpitations. Feels a little better. OBJECTIVE: GENERAL: Lying flat in bed, not in apparent distress. VITAL SIGNS: As follows: Temperature afebrile, heart rate 93, and blood pressure 93/54. HEENT: PERRLA. Extraocular muscles intact. NECK: Supple. No carotid bruit. No thyromegaly. CHEST: Clear to auscultation. HEART: S1 and S2 regular. ABDOMEN: Soft. EXTREMITIES: Clubbing and cyanosis negative. LABORATORY DATA: Blood workup as follows: WBC 1.3, hemoglobin 6.6, hematocrit 21.5, and platelet count 126. Chemistry shows sodium 137, potassium 4.0, chloride 94, carbon dioxide 37, anion gap of 10, BUN 9, and creatinine 0.6. IMPRESSION: Multiple myeloma, pancytopenia, neutropenia, thrombocytopenia, history of chronic atrial fibrillation, wounds on the back. MRI shows no osteomyelitis. Recent echocardiogram shows ejection fraction mildly impaired, severely thickened aortic valve, possibly bicuspid, moderate aortic stenosis, and pulmonary hypertension. RECOMMENDATIONS: Aggressive medical treatment. Most recent echo shows 1.2 cm2 valve area. Continue hematology/oncology followup. Continue digoxin. The patient has an atrial fibrillation, continue to go for anticoagulation with severe thrombocytopenia, high risk of spontaneously bleeding without anticoagulation, but with anticoagulation the patient has more increased risk of bleeding, risk and benefit ratio is not in favor of restarting blood thinner now until the platelet count improves above 50,000. We will follow with you. In the interim, continue carvedilol, low dose , continue digoxin, adequate analgesia, broad spectrum antibiotics. Overall, the patient's condition is critical. Long-term prognosis is guarded. We will follow with you. Driss Contreras MD
[2017-06-02] MEDS: Sodium Chloride 0.9% 250 ML IV SCH (19:26)
[2017-06-03 00:51] VITALS: O2SAT 98
[2017-06-03] MEDS: Morphine 4 mg/ml ISec IVP PRN ×4 (05:35→18:12)
[2017-06-03] MEDS: Sodium Chloride 0.9% 250 ML IV SCH (05:43)
[2017-06-03 07:19] LABS: EOS % 0.8 % (1.5-5.0); GRAN # 0.98 (1.4-6.5); GRAN % 77.8 % (50.0-68.0); LYMPH # 0.2 (1.2-3.4); LYMPH % 14.3 % (22.0-35.0); MEAN CELL VOLUME 102.6 fl (80.0-105.0); MEAN CORPUSCULAR HEMOGLOBIN 31.6 pg (25.0-35.0); MEAN CORPUSCULAR HGB CONC 30.8 g/dl (31.0-37.0); MEAN PLATELET VOLUME 10.4 fl (7.0-11.0); MONO # 0.1 (0.1-0.6); MONO % 7.1 % (1.0-6.0); RED CELL DISTRIBUTION WIDTH 19.9 % (11.5-14.5)
[2017-06-03 07:55] LABS: WHITE BLOOD COUNT 1.3 10^3/ul (4.5-11.0)
[2017-06-03] MEDS: Morphine 30 mg SR Tab PO SCH (10:39)
[2017-06-03] MEDS ORDERED: DAPTOmycin 500 mg Inj (Cubicin) IV SCH (11:00)
[2017-06-03] MEDS ORDERED: DAPTOmycin 600 MG in Sodium Chloride 0.9% 100 ML IV SCH (11:00)
--- NOTE | 2017-06-03 12:26 | CP.PCM.PN ---
Subjective - Date & Time of Evaluation Date of Evaluation: 06/03/17 Time of Evaluation: 12:13 - Subjective Subjective: General Surgery progress note for Dr. Mas PT S&E at bedside. Patient states wound care nursing hasn't seen him. Patient changed at bedside by surgery team. Drainage from site, serosanguinous. Patient had pain medication overnight. Patient states he has pain, but it is tolerable. Patient denies any other complains and concerns at this time. Patient denies fever, chills, nausea, vomiting. Objective - Vital Signs/Intake and Output Vital Signs (last 24 hours): Temp Pulse Resp BP Pulse Ox 98.5 F 107 H 20 98/65 L 98 06/03/17 06:00 06/03/17 10:47 06/03/17 06:00 06/03/17 10:47 06/03/17 06:00 Intake and Output: 06/03/17 06/03/17 06:59 18:59 Intake Total 1780 Output Total 2500 Balance -720 - Medications Medications: Current Medications Acetaminophen (Tylenol 325mg Tab) 975 mg PO ONCE PRN PRN Reason: Fever >100.4 F Last Admin: 05/25/17 16:15 Dose: 975 mg Acetaminophen (Tylenol 325mg Tab) 650 mg PO Q6H PRN PRN Reason: Fever >100.4 F Last Admin: 05/26/17 17:23 Dose: 650 mg Carvedilol (Coreg) 3.125 mg PO BID [facility] Last Admin: 06/03/17 10:47 Dose: Not Given Clonazepam (Klonopin) 0.5 mg PO TID PRN; Protocol PRN Reason: Agitation Last Admin: 06/02/17 22:01 Dose: 0.5 mg Digoxin (Lanoxin) 0.125 mg PO 1400 [facility] Last Admin: 06/02/17 14:34 Dose: 0.125 mg Fentanyl (Duragesic) 1 patch TD Q72H [facility] Last Admin: 06/02/17 21:09 Dose: Not Given Gentamicin Sulfate 200 mg/ (Sodium Chloride) 105 mls @ 105 mls/hr IVPB Q24H [facility] Last Admin: 06/02/17 20:23 Dose: 105 mls/hr Daptomycin 600 mg/ Sodium (Chloride) 100 mls @ 200 mls/hr IV Q24H [facility] Stop: 06/17/17 11:01 Piperacillin Sod/Tazobactam Sod (Zosyn 3.375 In Ns 100ml) 100 mls @ 200 mls/hr IVPB Q6 [facility] PRN Reason: Protocol Stop: 06/14/17 12:01 Mirtazapine (Remeron) 15 mg PO HS [facility] Last Admin: 06/02/17 21:11 Dose: 15 mg Morphine Sulfate (Morphine Extended Release Tab) 30 mg PO Q12 [facility] Last Admin: 06/03/17 10:39 Dose: 30 mg Morphine Sulfate (Morphine) 4 mg IVP Q3H PRN PRN Reason: Pain, moderate (4-7) Last Admin: 06/03/17 05:35 Dose: 4 mg Sennosides (Senokot Tab) 8.6 mg PO DAILY [facility] Last Admin: 06/03/17 10:40 Dose: 8.6 mg - Labs Labs: 06/03/17 06:50 06/02/17 06:38 PT 14.7 Seconds (9.9-11.8) H 05/25/17 16:00 INR 1.36 (0.93-1.08) H 05/25/17 16:00 APTT 33.2 Seconds (23.7-30.8) H 05/25/17 16:00 - Constitutional Appears: Non-toxic, Older Than Stated Age - Head Exam Head Exam: NORMAL INSPECTION - Eye Exam Eye Exam: EOMI, Normal appearance - ENT Exam ENT Exam: Mucous Membranes Moist - Neck Exam Neck Exam: Full ROM, Normal Inspection - Respiratory Exam Respiratory Exam: Clear to Ausculation Bilateral, NORMAL BREATHING PATTERN. absent: Accessory Muscle Use, Respiratory Distress - Cardiovascular Exam Cardiovascular Exam: REGULAR RHYTHM. absent: Bradycardia, Tachycardia - GI/Abdominal Exam GI & Abdominal Exam: Soft. absent: Tenderness - Extremities Exam Extremities Exam: absent: Full ROM, Joint Swelling, Pedal Edema - Back Exam Additional comments: dressing changed at bedside. wound has no purulence, blood and serous drainage. current dressings c/d/i - Neurological Exam Neurological Exam: Alert, Awake, Oriented x3 - Psychiatric Exam Psychiatric exam: Flat Affect, Normal Mood - Skin Skin Exam: Dry, Intact, Mottled, Warm Assessment and Plan - Assessment and Plan (Free Text) Assessment: 51M s/p I & D of recurrent back abscess Plan: Daily dressing changes Further management as per primary team and consultations possibility of OR for debridement if patient's wound continues having drainage d/w Dr. Chace Mendez, DO PGY1
[2017-06-03] MEDS: Piperacillin/Tazobact 3.375 gm 100 ML IVPB SCH ×2 (12:50→18:13)
--- NOTE | 2017-06-03 14:55 | PN ---
DATE: 06/03/2017 REASON FOR CONSULTATION: Followup cardiac evaluation, preoperative risk stratification, cardiac clearance before anesthesia for surgery for back wound. SUBJECTIVE: The patient is a 51-year-old, denies any chest pain, shortness of breath, or any palpitation, feels a lot better. OBJECTIVE: GENERAL: Lying flat in the bed, not in apparent distress. Feels better since starting antibiotics according to patient. VITAL SIGNS: Temperature afebrile, heart rate 93, blood pressure 97/66. HEENT: PERRLA. Extraocular muscles intact. NECK: Supple. No carotid bruit. No thyromegaly. CHEST: Clear to auscultation. HEART: S1 and S2, regular. ABDOMEN: Soft. EXTREMITIES: Clubbing and cyanosis negative. LABORATORY DATA: Blood workup as follows: WBC 1.3, hemoglobin 7.4, hematocrit 24, and platelet count 34. Chemistry shows sodium 137, potassium 4.1, chloride 94, carbon dioxide 37, anion gap of 10, BUN 9, creatinine 0.6, calcium 8.7. Bilirubin 1.7, AST 15 and ALT 31. Echocardiography on 05/29/2017 that showed mildly decreased LV function, severely thickened bicuspid aortic valve, mild aortic regurgitation, moderate valvular aortic stenosis, mild pulmonary hypertension, mitral moderately thickened. The patient underwent a MUGA scan yesterday that showed ejection fraction 57%, normal RV, normal LV function. Prior echo shows decreased LV function, consistent severe pulmonary hypertension, RV systolic pressure 90, moderate valvular aortic stenosis, chronic atrial fibrillation, [id number] aortic regurgitation, dated 09/2016. IMPRESSION: A 51-year-old male with past medical history significant for multiple myeloma, Waldenstrom macroglobulinemia, admitted with back ulcers. Preoperative cardiology consult was called for possible abscess, drainage of wound for surgery. The patient has pancytopenia, thrombocytopenia, neutropenia, and anemia. MRI shows no evidence of osteomyelitis and being started to treat medically. Workup cardiac none. Recent echo shows preserved left ventricular function. RECOMMENDATIONS: Continue aggressive medical treatment, history of cardiac catheterization that shows nonobstructive coronary artery disease in the past. We will discontinue telemetry. The patient is in negative isolation because of neutropenia. The patient has got chemotherapy recently and his neutropenia is post chemotherapy. Continue carvedilol 3.125 as blood pressure tolerated. Continue digoxin. because of low blood pressure. Monitor electrolytes and supplement as needed. Monitor platelet count. The patient has history of chronic atrial fibrillation, not on anticoagulation this admission because of severe thrombocytopenia and high risk of spontaneously bleeding on anticoagulation, platelet count 34. When the platelet count improves, consider anticoagulation. For now, continue to treat aggressively, and since the patient is not going for surgery, we will treat medically. We will follow. Overall, the patient's condition is critical. Long-term prognosis is extremely guarded. Continue supportive care. Driss Contreras MD
--- NOTE | 2017-06-03 14:55 | PN ---
DATE: 06/03/2017 SUBJECTIVE: The patient seen earlier in 269, bed 1. Continues to have complaint of generalized aches and pain. PHYSICAL EXAMINATION: VITAL SIGNS: Temperature is 98, blood pressure is 97/60, respiratory rate of 19, and heart rate of 115. HEENT: Unremarkable. NECK: Supple. LUNGS: Decreased breath sounds. HEART: Normal S1 and S2. ABDOMEN: Soft and nontender. LABORATORY DATA: Reveals the patient's white count is 1.3, hemoglobin is 7, and platelets are 34. Chemistries reveal the BUN of 9 and creatinine of 0.6. Microbiology reveals the patient's blood cultures are negative. ASSESSMENT AND PLAN: This is a 51-year-old male with sepsis due to thoracic area soft tissue infection, which is recurrent with methicillin-resistant Staphylococcus aureus and coagulase-negative Staphylococcus bacteremia Pseudomonas and Acinetobacter, no evidence of vertebral osteomyelitis and negative MRI. Currently on daptomycin, vancomycin DYANA from previous culture DYANA of 1. This may be problematic for vancomycin and the patient is on Zosyn and gentamicin, Acinetobacter is resistant to Zosyn and meropenem. Repeat blood cultures are negative. Review of the orders reveals gentamicin to be active and daptomycin was discontinued by pharmacy, although it was reordered by Dr. Schmidt. We will reorder daptomycin. Echocardiogram is noted, considering transesophageal echocardiogram. The patient's Pseudomonas is sensitive to Zosyn. Pseudomonas organism: 1. It is sensitive to piperacillin and tazobactam organism. 2. Resistant to piperacillin and tazobactam and organism multidrug resistant. Restart Zosyn which was also discontinued by pharmacy . Anatoliy Luna MD
[2017-06-03] MEDS: Digoxin 125 mcg (0.125 mg) Tab PO SCH (15:37)
--- NOTE | 2017-06-03 15:49 | PN ---
DATE: SUBJECTIVE: The patient is 51 years old, seen and examined, lying in bed, complaint of pain in the mid back and the lower back. Otherwise, eating and tolerating. No nausea, vomiting, or diarrhea. No fever. No chills. PHYSICAL EXAMINATION: VITAL SIGNS: He is afebrile, pulse 93, respirations 20, and blood pressure 98/65. HEART: S1 and S2 audible. LUNGS: Bilateral fair airflow. No rhonchi or crackles. ABDOMEN: Soft and obese. Colostomy is in place. EXTREMITIES: Bilateral leg, no edema. He has wound in the thoracic area that has a packing in it and sacral area, he has stage II in the left buttock area. LABORATORY DATA: WBC is 1.3, hemoglobin 7.4, hematocrit 24, and platelet of 34. Chemistry: Sodium 137, potassium 4.1, chloride 94, CO2 of 37, BUN 9, and creatinine 0.6. Blood sugar of 93. Total bilirubin 1.7. AST 15. Blood cultures on 05/27/2017 are unremarkable and negative. ASSESSMENT: 1. Coagulase-negative Staphylococcus bacteremia seems to cleared up thoracic area soft tissue infection with methicillin-resistant Staphylococcus aureus. 2. Pseudomonas and Acinetobacter wound infection. MRI of thoracic spine negative for osteomyelitis. 3. History of Clostridium difficile. 4. Chronic atrial fibrillation. 5. Waldenstrom macroglobulinemia. 6. Status post colostomy. 7. Chronic anemia and status post blood transfusion. Follow up hemoglobin is 7.4. MUGA scan reviewed. Ejection fraction is 57%. 8. Deconditioning and difficulty walking. PLAN: We will discontinue telemetry. TCU evaluation has been requested. Discussed with the patient and his son by the bedside, but if the patient has bed in TCU, we can send him to finish his course of can be transferred to TCU if bed is available, need to reach out to ID for duration of antibiotic. Pepito Gavin MD
[2017-06-03 15:54] VITALS: PULSE 104
--- NOTE | 2017-06-03 18:23 | PN ---
SUBJECTIVE: The patient is in constant pain and much worse when he moves. He is basically bedridden and I do not think he is going to get out of the bed. His vital signs are normal. His laboratory shows a white count that is persistently low at 1.3, platelets improving at . The MRI of the back is no osteo seen. He still has a small amount of drainage from the back which is somewhat purulent. There is no collection that we can see or feel. We will continue to lightly pack. My plan is that if this needs to be relanced, we will place a dependent drain and a Loyal, but for now, we will continue with the antibiotics. His overall prognosis is poor. Td Mas MD
[2017-06-03 18:28] VITALS: BP 93/60; PULSE 81
[2017-06-03 18:34] VITALS: RESP 18; TEMP 99
== END 2017-06-03 19:34 | DRG 871 ==
LOC: ED 15:22 → ERH 18:51 → 2RNO 22:10
PROVIDERS: ADMIT Internal Medicine Medical Oncology; ATTEND Internal Medicine
PROC: 0H96XZZ Drainage of Back Skin, External Approach (ICD-10-PCS; principal; 2017-05-25)
PROC: 30233N1 Transfusion of Nonautologous Red Blood Cells into Peripheral Vein, Percutaneous Approach (ICD-10-PCS; 2017-05-25)
DX: A41.02 Sepsis due to Methicillin resistant Staphylococcus aureus (principal); G06.1 Intraspinal abscess and granuloma; I95.89 Other hypotension; D84.9 Immunodeficiency, unspecified; D61.818 Other pancytopenia; C90.00 Multiple myeloma not having achieved remission; F11.20 Opioid dependence, uncomplicated; M48.54XA Collapsed vertebra, not elsewhere classified, thoracic region, initial encounter for fracture; I50.9 Heart failure, unspecified; I27.2 Other secondary pulmonary hypertension; E66.01 Morbid (severe) obesity due to excess calories; I08.3 Combined rheumatic disorders of mitral, aortic and tricuspid valves; D70.9 Neutropenia, unspecified; C88.0 Waldenstrom macroglobulinemia; F32.89 Other specified depressive episodes; F41.1 Generalized anxiety disorder; G89.29 Other chronic pain; M54.9 Dorsalgia, unspecified; I11.0 Hypertensive heart disease with heart failure; I48.2 Chronic atrial fibrillation; J44.9 Chronic obstructive pulmonary disease, unspecified; I25.10 Atherosclerotic heart disease of native coronary artery without angina pectoris; R65.20 Severe sepsis without septic shock; Z16.24 Resistance to multiple antibiotics; Z74.01 Bed confinement status; Z79.01 Long term (current) use of anticoagulants; Z80.42 Family history of malignant neoplasm of prostate; Z86.73 Personal history of transient ischemic attack (TIA), and cerebral infarction without residual deficits; Z87.440 Personal history of urinary (tract) infections; Z87.891 Personal history of nicotine dependence; Z90.49 Acquired absence of other specified parts of digestive tract; Z93.3 Colostomy status; Z99.81 Dependence on supplemental oxygen; R40.2412 Glasgow coma scale score 13-15, at arrival to emergency department; G47.00 Insomnia, unspecified; B95.2 Enterococcus as the cause of diseases classified elsewhere; B96.89 Other specified bacterial agents as the cause of diseases classified elsewhere; R53.81 Other malaise; R26.2 Difficulty in walking, not elsewhere classified

== ENCOUNTER 2017-06-03 19:34 | Inpatient (IN) | payer MEDICARE, OTHER ==
[2017-06-03] MEDS ORDERED: DAPTOmycin 600 MG in Sodium Chloride 0.9% 100 ML IV SCH (20:00)
[2017-06-03] MEDS: Morphine 30 mg SR Tab PO SCH (22:01)
[2017-06-03 23:06] VITALS: BMI 30.7
[2017-06-03] MEDS ORDERED: Pneumococcal 23-Valent Vaccine IM ONE (23:07)
[2017-06-03] MEDS: Morphine 4 mg/ml ISec IVP PRN (23:22)
[2017-06-04] MEDS: Piperacillin/Tazobact 3.375 gm 100 ML IVPB SCH ×2 (00:07→05:07)
[2017-06-04] MEDS: Morphine 4 mg/ml ISec IVP PRN ×2 (03:30→08:27)
--- NOTE | 2017-06-04 09:27 | CP.PCM.CON ---
History of Present Illness - History of Present Illness History of Present Illness: General Surgery Consult note for Dr. Mas 51M presents with fever, temperature of 101.4 at home and drainage from abscess. Patient was treated in the hospital with packing, 4x4 and tape. Patient was transitioned to TCU. General Surgery consulted for evaluation of wound. PAtient denies N/V, Abdominal pain, changes in gait or vision. Culture: MRSA, E. faecalis PMH: Waldenstrom Macroglobulinemia, atrial fibrillation, chronic hypotension, bed bound CAD, diverticulitis s/p Hartmans' procedure with colostomy, choledocolithiasis with h/o ERCP, chronic back pain 2nd to spinal fractures, right sided heart failure, h/o c diff. PSH: ERCP, Sharpe's procedure FMH: Dad had prostate cancer, and bone marrow disease, brother OA. SHx: Former tobacco, denies alcohol or illicit drug use. Bed bound, son and does ADLs. Past Patient History - Infectious Disease Hx of Infectious Diseases: None - Past Social History Smoking Status: Never Smoked - CARDIAC Hx Cardiac Disorders: Yes Hx Congestive Heart Failure: Yes Hx Hypertension: Yes - PULMONARY Hx Chronic Obstructive Pulmonary Disease (COPD): No Other/Comment: on home O2 for low sat - NEUROLOGICAL Hx Transient Ischemic Attacks (TIA): No - HEENT Hx HEENT Problems: No Hx Blind: No Hx Cataracts: No Hx Deafness: No Hx Difficulty Chewing: No Hx Epistaxis: No Hx Glaucoma: No Hx Macular Degeneration: No - RENAL Hx Renal Failure: No - ENDOCRINE/METABOLIC Hx Diabetes Mellitus Type 1: No Hx Diabetes Mellitus Type 2: No - HEMATOLOGICAL/ONCOLOGICAL Hx Cancer: Yes (Blood Cancer as per patient) Hx Chemotherapy: Yes - INTEGUMENTARY Hx Dermatological Problems: No Hx Basil Cell: No Hx Eczema: No Hx Melanoma: No Hx Psoriasis: No Hx Squamous Cell: No - MUSCULOSKELETAL/RHEUMATOLOGICAL Hx Falls: Yes (past) - GASTROINTESTINAL Hx Gastrointestinal Disorders: (colostomy) - GENITOURINARY/GYNECOLOGICAL Hx Reproductive Disorders: No - PSYCHIATRIC Hx Emotional Abuse: No Hx Physical Abuse: No - SURGICAL HISTORY Hx Gastric Bypass Surgery: No - ANESTHESIA Hx Anesthesia: Yes Hx Anesthesia Reactions: No Hx Malignant Hyperthermia: No Meds Allergies/Adverse Reactions: Allergies Allergy/AdvReac Type Severity Reaction Status Date / Time No Known Allergies Allergy Verified 05/25/17 15:49 - Medications Medications: Current Medications Acetaminophen (Tylenol 325mg Tab) 650 mg PO Q6H PRN PRN Reason: temp 101 Carvedilol (Coreg) 3.125 mg PO BID [facility] Clonazepam (Klonopin) 0.5 mg PO TID PRN; Protocol PRN Reason: Anxiety Digoxin (Lanoxin) 0.125 mg PO 1400 [facility] Fentanyl (Duragesic) 1 patch TD Q72H [facility] Gentamicin Sulfate 200 mg/ (Sodium Chloride) 105 mls @ 100 mls/hr IVPB Q24H [facility] PRN Reason: Protocol Iron Sucrose 100 mg/ Sodium (Chloride) 105 mls @ 210 mls/hr IVPB 2200 [facility] Stop: 06/05/17 22:00 Last Admin: 06/03/17 22:02 Dose: 210 mls/hr Daptomycin 600 mg/ Sodium (Chloride) 100 mls @ 200 mls/hr IV Q24H [facility] PRN Reason: Protocol Stop: 06/04/17 12:29 Mirtazapine (Remeron) 15 mg PO HS [facility] Last Admin: 06/03/17 22:01 Dose: 15 mg Morphine Sulfate (Morphine) 4 mg IVP Q3 PRN PRN Reason: pain scale (8-10) Last Admin: 06/04/17 08:27 Dose: 4 mg Morphine Sulfate (Morphine Extended Release Tab) 30 mg PO Q12 [facility] Last Admin: 06/03/17 22:01 Dose: 30 mg Senna/Docusate Sodium (Senokot S 50 Mg-8.6 Mg) 1 tab PO DAILY [facility] Physical Exam - Constitutional Appears: Non-toxic, Older Than Stated Age, Chronically Ill - Head Exam Head Exam: NORMAL INSPECTION - Eye Exam Eye Exam: EOMI, Normal appearance - ENT Exam ENT Exam: Mucous Membranes Moist - Neck Exam Neck exam: Positive for: Full Rom - Respiratory Exam Respiratory Exam: Clear to Auscultation Bilateral, NORMAL BREATHING PATTERN. absent: Accessory Muscle Use, Respiratory Distress - Cardiovascular Exam Cardiovascular Exam: REGULAR RHYTHM. absent: Bradycardia, Tachycardia - GI/Abdominal Exam GI & Abdominal Exam: Soft. absent: Distended, Firm, Guarding - Extremities Exam Extremities exam: Positive for: full ROM, normal inspection - Back Exam Additional comments: dressing in place. 4x4. no packing, medipore tape - Neurological Exam Neurological exam: Alert, Normal Gait, Oriented x3 - Psychiatric Exam Psychiatric exam: Normal Affect, Normal Mood - Skin Skin Exam: Dry, Mottled, Pallor, Warm Results - Vital Signs Recent Vital Signs: Last Vital Signs Temp 98.9 F 06/04/17 06:00 Pulse 97 H 06/04/17 08:32 Resp 18 06/04/17 06:00 BP 94/63 L 06/04/17 08:32 Pulse Ox 92 L 06/04/17 06:00 Assessment & Plan - Assessment and Plan (Free Text) Assessment: 51M with sacral wound and back wound Plan: wound care nurse consult continue 4x4, with medipore. no packing optifoam on sacral wound reposition q2H - Date & Time Date: 06/04/17 Time: 09:29
[2017-06-04] MEDS: Docusate-Senna 50 mg-8.6 mg Tab PO SCH (11:07)
[2017-06-04] MEDS: Morphine 30 mg SR Tab PO SCH ×2 (11:09→21:22)
[2017-06-04] MEDS ORDERED: DAPTOmycin 600 MG in Sodium Chloride 0.9% 100 ML IV SCH (12:00)
[2017-06-04] MEDS ORDERED: Sodium Chloride 0.9% 250 ML IV STA (12:04)
[2017-06-04] MEDS ORDERED: Sodium Chloride 0.9% 250 ML IV ONE (12:30)
[2017-06-04] MEDS: Digoxin 125 mcg (0.125 mg) Tab PO SCH (14:45)
[2017-06-04] MEDS ORDERED: DAPTOmycin 500 mg Inj (Cubicin) IV SCH (16:45)
[2017-06-04] MEDS ORDERED: Piperacillin/Tazobact 3.375 gm 100 ML IVPB SCH (18:00)
[2017-06-04] MEDS: DAPTOmycin 600 MG in Sodium Chloride 0.9% 100 ML IV SCH (19:03)
[2017-06-04] MEDS: Morphine 2 mg/ml ISec IVP PRN (19:39)
[2017-06-05] MEDS: Piperacillin/Tazobact 3.375 gm 100 ML IVPB SCH ×5 (00:01→22:59)
[2017-06-05] MEDS: Morphine 2 mg/ml ISec IVP PRN ×7 (00:01→22:59)
--- NOTE | 2017-06-05 02:37 | CON ---
DATE: 06/04/2017 The patient seen on 06/04/2017 earlier today. CHIEF COMPLAINT: Weakness times several days. HISTORY OF PRESENT ILLNESS: This is a 51-year-old male with past medical history significant for Waldenstrom's macroglobulinemia, status post chemotherapy; AFib, on anticoagulation; history of diverticulitis; history of Nneka's procedure; history of stoma; skin infection; vertebral compression fractures, who is in acute care site with thoracic abscess restrained surgery, which grew MRSA in the first admission with Enterococcus faecalis and repeat admission, the patient grew MRSE methicillin-resistant coagulase negative staph bacteremia and it also grew Pseudomonas Acinetobacter from his wound. No evidence of vertebral osteomyelitis on MRI. Previously grown on previous admission with MRSA and Enterococcus and dissection colostomy placement in the past, leukopenia, colitis, diverticulitis and abscess formation, which led to the colostomy placement and the patient is now transferred to transitional care for antibiotics and local wound care and physical therapy. He states that he does not ambulate at all. PAST MEDICAL HISTORY: Significant for Waldenstrom's macroglobulinemia, atrial fibrillation, diverticulitis resulting colostomy tube, Nneka's procedure stoma and skin infection, vertebral compression fractures, recent thoracic abscess, wound infection, initially with MRSA and Enterococcus. His last admission was Pseudomonas and Acinetobacter and also had MRSE bacteremia. PAST SURGICAL HISTORY: Significant for Nneka's procedure. ALLERGIES: NO KNOWN ALLERGIES. PHYSICAL EXAMINATION: GENERAL: The patient is in bed. VITAL SIGNS: Temperature of 98, blood pressure is 93/60, respiratory rate of 18 and heart rate of 103. HEENT: Unremarkable. NECK: Supple. LUNGS: Decreased breath sounds. HEART: Normal S1 and S2. ABDOMEN: Soft and nontender. LABORATORY DATA: Reveals a white count of 1.3, hemoglobin of 7.4, and platelets of 34. Chemistry reveals the patient has BUN of 9 and creatinine of 0.6. Urinalysis noted. Microbiology reveals the blood cultures shows no growth. Initial ones did grow in two bottles of coagulase negative Staph. Laboratory examinations reviewed. ASSESSMENT: This is a -jwme-ciy male with sepsis due to thoracic area soft tissue infection with recurrent methicillin-resistant Staphylococcus aureus, Enterococcus now with wound infection with Pseudomonas and Acinetobacter. The patient also with Methicillin-resistant Staphylococcus epidermidis bacteremia. No evidence of vertebral osteomyelitis and negative MRI and daptomycin with vancomycin DYANA of 1, discontinue vancomycin may be problematic, currently on daptomycin, Zosyn, and gentamicin. The patient's wound is improving. We will restart daptomycin, Zosyn, and gentamicin. We will follow closely with you. Overall, prognosis is quite poor. Anatoliy Luna MD
--- NOTE | 2017-06-05 03:00 | CON ---
PSYCHIATRIC CONSULTATION DATE: HISTORY OF PRESENT ILLNESS: The patient is a 51-year-old male who is currently being treated on transitional care unit, reviewed the chart, and spoke with the nursing staff. The patient is under treatment for sepsis due to soft tissue infections in his back. The patient is currently receiving multiple antibiotics and wound care. He has past history of Waldenstrom macroglobulinemia, atrial fibrillation, chronic hypertension, debilitation, history of recurrent depression, history of ERCP, he has compression fractures of thoracic spine and heart failure. The patient has pancytopenia. LABORATORY DATA: The patient's lab cultures include MRSA, enterococcal faecalis and wound culture. The patient has most recent laboratory data. His white count is 1300, his hemoglobin is 7.4, hematocrit 24, platelet count 34,000. The patient's grand neutrophil count is 77.8% of 1300. His laboratory data, his chemistries, most recent chemistries have been from 06/02/2017. Electrolytes: Sodium 137, potassium 4.1, chloride 94, CO2 37, anion gap 10, BUN 9, creatinine 0.6, and glucose 132. His ferritin levels are within normal range. His AST, ALT, alkaline phosphatase, and LDH are all normal. CURRENT MEDICATIONS: Include Klonopin 0.5 mg t.i.d., p.r.n.,extended release morphine 30 mg q.12 h., mirtazapine 15 mg bedtime for depression, Venofer IV. He is receiving Coreg, Senokot, Lenoxin, Morphine, Cubicin, gentamicin, Zosyn, and Duragesic patch. PERSONAL HISTORY: Lives with his and son. He has been on disability for several years. PHYSICAL EXAMINATION: VITAL SIGNS: Blood pressure is 138/71, pulse is 98, he is afebrile, respirations 14 per minute. MENTAL STATUS: Awake, alert, coherent, cachectic, somewhat despondent, but lucid. His sensorium is totally clear. Somewhat apathetic. No hallucinations or suicidal ideation. IMPRESSION AND PLAN: The patient has been treated for methicillin-resistant Staphylococcus aureus sepsis. He has compression fractures, chronic pain, Waldenstrom macroglobulinemia, pancytopenia. The patient will increase mirtazapine to 22.5 mg at bedtime and we will continue to monitor the patient's mental status. Alton Guthrie MD [facility] # [id number]
--- NOTE | 2017-06-05 05:20 | HP ---
HISTORY OF PRESENT ILLNESS: The patient is 51 years old who was recently admitted with intractable back pain. He was found to have mid thoracic abscess. He has I and D done, also had MRI done that was negative for osteomyelitis. The patient was transferred to TCU for rehab and to complete his course of antibiotics. The patient has significant past medical history of Waldenstrom gammaglobulinemia, pancytopenia, currently on chemotherapy at [facility] in [place], status post colostomy, COPD, chronic AFib, chronic anemia, requiring intermittent multiple times blood transfusion, and history of depression. SOCIAL HISTORY: He is , lives with his . Denies smoking or drinking. ALLERGIES: NOT ALLERGIC TO ANY MEDICATIONS. MEDICATIONS AT HOME: He is on Coumadin 5 mg daily, Percocet as needed, Remeron 15 mg at bedtime, lorazepam 0.5 at bedtime, and Coreg 12.5 daily. REVIEW OF SYSTEMS: Significant for sleepy, being lethargic, complained of back pain requiring frequent dosing of narcotics. PHYSICAL EXAMINATION GENERAL: He is sleepy, but arousable. VITAL SIGNS: He is afebrile, pulse 98, respiration 14, blood pressure 138/71. LUNGS: Bilateral fair airflow. No rhonchi or crackles. HEART: S1 and S2 audible. ABDOMEN: Soft, obese, nontender. Colostomy in place. There is no blood in the colostomy. EXTREMITIES: Bilateral leg, he has dry skin. ASSESSMENT: 1. Paraspinal abscess, status post incision and drainage. 2. Chronic obstructive pulmonary disease. 3. Depression. 4. Waldenstrom gammaglobulinemia. 5. Chronic anemia. 6. Pancytopenia. PLAN: Continue the patient on current medications. Continue local wound care. He is currently getting daptomycin and Zosyn. We will follow up with CBC and CMP. Pepito Gavin MD
--- NOTE | 2017-06-05 06:52 | CP.PCM.PN ---
Subjective - Date & Time of Evaluation Date of Evaluation: 06/05/17 Time of Evaluation: 05:45 - Subjective Subjective: General surgery progress note for Dr. Clarice Pitts, PGY-1 Pt S & E at bedside. Pt reports pain well controlled, no problems overnight. Dressing over back wound changed last night after dinner. Denies N/V/F/C, SOB, CP, ab pain. Objective - Vital Signs/Intake and Output Vital Signs (last 24 hours): Temp Pulse Resp BP Pulse Ox 98.2 F 98 H 14 138/71 96 06/04/17 10:00 06/04/17 18:43 06/04/17 10:00 06/04/17 18:43 06/04/17 10:00 - Medications Medications: Current Medications Acetaminophen (Tylenol 325mg Tab) 650 mg PO Q6H PRN PRN Reason: temp 101 Carvedilol (Coreg) 3.125 mg PO BID [facility] Last Admin: 06/04/17 18:43 Dose: 3.125 mg Digoxin (Lanoxin) 0.125 mg PO 1400 [facility] Last Admin: 06/04/17 14:45 Dose: 0.125 mg Fentanyl (Duragesic) 1 patch TD Q72H [facility] Gentamicin Sulfate 200 mg/ (Sodium Chloride) 105 mls @ 100 mls/hr IVPB Q24H [facility] PRN Reason: Protocol Last Admin: 06/04/17 21:10 Dose: 100 mls/hr Iron Sucrose 100 mg/ Sodium (Chloride) 105 mls @ 210 mls/hr IVPB 2200 [facility] Stop: 06/05/17 22:00 Last Admin: 06/04/17 21:18 Dose: 210 mls/hr Daptomycin 600 mg/ Sodium (Chloride) 100 mls @ 200 mls/hr IV Q24H [facility] Stop: 06/16/17 17:16 Last Admin: 06/04/17 19:03 Dose: Not Given Lorazepam (Ativan) 0.5 mg PO HS [facility] Last Admin: 06/04/17 21:22 Dose: 0.5 mg Mirtazapine (Remeron) 22.5 mg PO HS [facility] Last Admin: 06/04/17 21:22 Dose: 22.5 mg Morphine Sulfate (Morphine Extended Release Tab) 30 mg PO Q12 [facility] Last Admin: 06/04/17 21:22 Dose: 30 mg Morphine Sulfate (Morphine) 2 mg IVP Q3 PRN PRN Reason: pain scale (8-10) Last Admin: 06/05/17 06:09 Dose: 2 mg Senna/Docusate Sodium (Senokot S 50 Mg-8.6 Mg) 1 tab PO DAILY [facility] Last Admin: 06/04/17 11:07 Dose: 1 tab - Constitutional Appears: Non-toxic, No Acute Distress - Head Exam Head Exam: ATRAUMATIC, NORMAL INSPECTION, NORMOCEPHALIC - Eye Exam Eye Exam: EOMI, Normal appearance - ENT Exam ENT Exam: Mucous Membranes Moist, Normal Exam - Neck Exam Neck Exam: Normal Inspection - Respiratory Exam Respiratory Exam: Clear to Ausculation Bilateral, NORMAL BREATHING PATTERN - Cardiovascular Exam Cardiovascular Exam: REGULAR RHYTHM, +S1, +S2 - GI/Abdominal Exam GI & Abdominal Exam: Soft, Normal Bowel Sounds. absent: Distended, Tenderness Additional comments: ostomy with dark brown soft stool and air, stoma non visible, non tender; pt w/ large pannus with dependent edema at lateral aspects - Extremities Exam Extremities Exam: Normal Inspection (edema B/L), Pedal Edema. absent: Full ROM - Neurological Exam Neurological Exam: Alert, Awake, CN II-XII Intact, Oriented x3 - Psychiatric Exam Psychiatric exam: Normal Affect, Normal Mood - Skin Skin Exam: Dry, Normal Color, Warm. absent: Intact (dressing in place- C/D/I) Assessment and Plan - Assessment and Plan (Free Text) Assessment: 51M w/sacral and back wounds now in TCU Plan: Wound care as per nursing 4x4 w/medipore No packing Optifoam to sacral wound Air mattress Turn Q2H PT/OT Will DW attending Gisselle, PGY-1
[2017-06-05 08:33] LABS: EOS % 1.6 % (1.5-5.0); GRAN # 0.43 (1.4-6.5); GRAN % 67.1 % (50.0-68.0); LYMPH # 0.2 (1.2-3.4); MEAN CELL VOLUME 102.3 fl (80.0-105.0); MEAN CORPUSCULAR HEMOGLOBIN 32.1 pg (25.0-35.0); MEAN CORPUSCULAR HGB CONC 31.4 g/dl (31.0-37.0); MEAN PLATELET VOLUME 9.5 fl (7.0-11.0); MONO % 6.3 % (1.0-6.0); RED CELL DISTRIBUTION WIDTH 19.5 % (11.5-14.5)
[2017-06-05 08:38] LABS: HEMATOCRIT 22.3 % (42.0-52.0); PLATELET COUNT 25 10^3/uL (120.0-450.0); WHITE BLOOD COUNT 0.6 10^3/ul (4.5-11.0)
[2017-06-05 08:46] LABS: ALB/GLOB RATIO 0.8 (1.1-1.8); ALKALINE PHOSPHATASE 60 U/L (38-126); ALT/SGPT 28 U/L (7-56); AST/SGOT 19 U/L (17-59); BILIRUBIN,TOTAL 1.7 mg/dL (0.2-1.3); BLOOD UREA NITROGEN 11 mg/dL (7-21); CALCIUM 8.8 mg/dL (8.4-10.5); CARBON DIOXIDE 37 mmol/L (21-33); CHLORIDE 91 mmol/L (98-107); GFR AFRICAN-AMERICAN > 60; GLUCOSE,RANDOM 91 mg/dL (70-110); POTASSIUM 4.5 mmol/L (3.6-5.0); SODIUM 135 mmol/L (132-148); TOTAL PROTEIN 6.7 g/dL (5.8-8.3)
[2017-06-05] MEDS: Morphine 30 mg SR Tab PO SCH ×2 (10:55→21:35)
[2017-06-05] MEDS: Docusate-Senna 50 mg-8.6 mg Tab PO SCH ×2 (10:55→11:18)
--- NOTE | 2017-06-05 12:31 | PN ---
DATE: SUBJECTIVE: Td Garcia is seen on rounds. PHYSICAL EXAMINATION: GENERAL: He has no chance of getting out of bed, but they moving legs a little bit. VITAL SIGNS: Vital signs are normal. LABORATORY DATA: His white count is too low 0.6. Platelets low. Bilirubin 1.7. ASSESSMENT AND PLAN: The wound care nurse would be this afternoon and he only wants one dressing change, so I did not see the wound today. Td Mas MD
--- NOTE | 2017-06-05 14:18 | PN ---
DATE: 06/05/2017 SUBJECTIVE: The patient is in bed, in no acute distress, and nontoxic. He is weak. He states he is tolerating the antibiotics. No fevers. PHYSICAL EXAMINATION: VITAL SIGNS: Temperature is 98, heart rate of 92, blood pressure is 130/70, and respiratory rate of 16. HEENT: Unremarkable. NECK: Supple. LUNGS: Decreased breath sounds. HEART: Normal S1 and S2. ABDOMEN: Soft and nontender. LABORATORY DATA: Examination reveals a white count is 0.6, hemoglobin is 7, and platelets of 25. Chemistry reveals a BUN of 11 and creatinine of 0.6. Microbiology reveals the cultures are negative. Repeat blood cultures are negative. Repeat urine cultures are negative. Dr. Pitts's progress note from today is reviewed. Dr. Gavin's history and physical examinations reviewed. ASSESSMENT AND PLAN: He is a 51-year-old male with past medical history of Waldenstrom's macroglobulinemia, atrial fibrillation, diverticulitis, colostomy tube, Nneka's procedure, stoma and skin infection, vertebral compression fractures, recent thoracic abscess, wound infection, had initially methicillin-resistant Staphylococcus aureus and Enterococcus. The patient also had Staphylococcus epidermidis bacteremia in addition to Pseudomonas and Acinetobacter, wound infection. The Staphylococcus epidermidis does have vancomycin DYANA of 1, which may be problematic. Currently on daptomycin, Zosyn, and gentamicin. Creatinine is 0.6 and pancytopenia. Review of orders reveals the patient daptomycin, gentamicin and Zosyn. Zosyn was discontinued once again by pharmacy. I had ordered a twice, yesterday we will reorder it again. Anatoliy Luna MD
[2017-06-05] MEDS: Digoxin 125 mcg (0.125 mg) Tab PO SCH (14:20)
[2017-06-05] MEDS: DAPTOmycin 600 MG in Sodium Chloride 0.9% 100 ML IV SCH (17:31)
--- NOTE | 2017-06-05 17:50 | PN ---
DATE: 06/05/2017 REASON FOR CONSULTATION AND FOLLOWUP: Continuity of care in transitional care unit. SUBJECTIVE: The patient denies any chest pain, shortness of breath, or any palpitations. PHYSICAL EXAMINATION: GENERAL: Lying flat in the bed, not in apparent distress. VITAL SIGNS: Temperature afebrile, heart rate 90, blood pressure 130/71. HEENT: PERRLA. Extraocular muscles intact. NECK: Supple. No carotid bruits or thyromegaly. CHEST: Clear to auscultation. HEART: S1 and S2 regular. ABDOMEN: Soft. EXTREMITIES: Clubbing and cyanosis are negative. LABORATORY DATA: Blood workup as follows: WBC 0.6, hemoglobin 10, hematocrit 22, platelet count 25. Chemistry shows sodium 135, potassium 4.5, chloride 91, carbon dioxide 37, anion gap of 14, BUN 11, creatinine 0.6. IMPRESSION: Waldenstrom globulinemia, pancytopenia status post chemo, severe absolute neutropenia, anemia, thrombocytopenia. Most recent MUGA scan shows ejection fraction 57%. Normal right ventricular and normal left ventricular function. Aortic stenosis, aortic regurgitation. RECOMMENDATION: Continue present medical treatment. Continue digoxin. Continue carvedilol. Monitor for neutropenic sepsis. Monitor electrolytes. History of atrial fibrillation, who is not a candidate for anticoagulation because of severe thrombocytopenia, high risk of a spontaneous bleeding. When the platelet improves, consider restarting anticoagulation. We will follow with you. Thank you Dr. Ward for providing us the opportunity in taking care of the patient, Jose. We will follow with you. Driss Contreras MD
--- NOTE | 2017-06-05 23:12 | PN ---
DATE: SUBJECTIVE: The patient is a 51 years old, seen and examined, lying in bed, seems to be comfortable, and said, "I feel tired and lazy." PHYSICAL EXAMINATION: VITAL SIGNS: Afebrile, pulse 108, respiratory rate 18, and blood pressure 89/59. LUNGS: Bilateral fair airflow. No rhonchi or crackles. HEART: S1 and S2 audible. ABDOMEN: Soft, obese, and nontender. No rebound. No guarding. NEUROLOGICAL: The patient is awake and alert. Able to communicate. EXTREMITIES: Moves all extremities, but has generalized weakness. LABORATORY DATA: WBC is 0.6, hemoglobin 7, hematocrit 32.3, and platelet 25. Chemistry sodium 135, potassium 4.5, chloride 91, CO2 37, BUN 11, and creatinine 0.6. Blood sugar of 91. ASSESSMENT: 1. Pancytopenia. 2. Waldenstrom macroglobulinemia. 3. Paraspinal abscess, status post incision and drainage. 4. Aortic stenosis. 5. Aortic regurgitation. 6. Deconditioning and difficulty walking. PLAN: We will continue the patient on daptomycin and cut down his Coreg to 3.125 mg daily since his blood pressure is running on the low side. Currently, he is on gentamicin and daptomycin. He is being monitored by Dr. Luna and Dr. Contreras. I will reach out to Dr. Ward to see if we need to give the patient Neupogen since his white count is running low. Pepito Gavin MD
[2017-06-06] MEDS: Morphine 2 mg/ml ISec IVP PRN ×5 (03:03→22:30)
[2017-06-06] MEDS: Piperacillin/Tazobact 3.375 gm 100 ML IVPB SCH ×4 (05:50→23:35)
--- NOTE | 2017-06-06 08:49 | CP.PCM.PN ---
Subjective - Date & Time of Evaluation Date of Evaluation: 06/06/17 Time of Evaluation: 08:46 - Subjective Subjective: General Surgery Pt S&E, [place]. felt his back was stiff after changing his dressing yesterday. No new issues. Objective - Vital Signs/Intake and Output Vital Signs (last 24 hours): Temp Pulse Resp BP Pulse Ox 99.2 F 118 H 18 90/58 L 97 06/06/17 06:00 06/06/17 06:00 06/06/17 06:00 06/06/17 06:00 06/06/17 06:00 Intake and Output: 06/06/17 06/06/17 06:59 18:59 Intake Total 360 Output Total 300 Balance 60 - Medications Medications: Current Medications Acetaminophen (Tylenol 325mg Tab) 650 mg PO Q6H PRN PRN Reason: temp 101 Carvedilol (Coreg) 3.125 mg PO DAILY LUZ Digoxin (Lanoxin) 0.125 mg PO 1400 [facility] Last Admin: 06/05/17 14:20 Dose: 0.125 mg Fentanyl (Duragesic) 1 patch TD Q72H [facility] Last Admin: 06/05/17 21:35 Dose: 1 patch Gentamicin Sulfate 200 mg/ (Sodium Chloride) 105 mls @ 100 mls/hr IVPB Q24H LUZ PRN Reason: Protocol Last Admin: 06/05/17 17:32 Dose: 100 mls/hr Daptomycin 600 mg/ Sodium (Chloride) 100 mls @ 200 mls/hr IV Q24H [facility] Stop: 06/16/17 17:16 Last Admin: 06/05/17 17:31 Dose: 200 mls/hr Piperacillin Sod/Tazobactam Sod (Zosyn 3.375 In Ns 100ml) 100 mls @ 200 mls/hr IVPB Q6 [facility]Z PRN Reason: Protocol Stop: 06/14/17 12:01 Last Admin: 06/06/17 05:50 Dose: 200 mls/hr Lorazepam (Ativan) 0.5 mg PO HS [facility] Last Admin: 06/05/17 21:35 Dose: 0.5 mg Mirtazapine (Remeron) 22.5 mg PO HS [facility] Last Admin: 06/05/17 21:36 Dose: 22.5 mg Morphine Sulfate (Morphine Extended Release Tab) 30 mg PO Q12 [facility] Last Admin: 06/05/17 21:35 Dose: 30 mg Morphine Sulfate (Morphine) 2 mg IVP Q3 PRN PRN Reason: pain scale (8-10) Last Admin: 06/06/17 05:51 Dose: 2 mg Senna/Docusate Sodium (Senokot S 50 Mg-8.6 Mg) 1 tab PO DAILY [facility] Last Admin: 06/05/17 11:18 Dose: Not Given - Labs Labs: 06/05/17 08:00 06/05/17 08:00 - Constitutional Appears: Non-toxic, No Acute Distress - Head Exam Head Exam: ATRAUMATIC, NORMOCEPHALIC - Eye Exam Eye Exam: EOMI. absent: Scleral icterus - GI/Abdominal Exam GI & Abdominal Exam: Soft. absent: Distended, Tenderness Additional comments: colostomy functioning - Back Exam Additional comments: dressing with strike through, changed dressing and packed per wound care. - Neurological Exam Neurological Exam: Alert, Awake - Skin Skin Exam: Dry, Warm Assessment and Plan - Assessment and Plan (Free Text) Assessment: 51M w/sacral and back wounds Plan: Back dressing changes per wound care Optifoam to sacral wound Turn Q2H PT/OT D/W Dr. Chace Aldana PGY4
[2017-06-06] MEDS: Morphine 30 mg SR Tab PO SCH (11:02)
[2017-06-06] MEDS: Docusate-Senna 50 mg-8.6 mg Tab PO SCH (11:02)
--- NOTE | 2017-06-06 11:57 | PN ---
DATE: 06/06/2017 SUBJECTIVE: The patient is in bed in no acute distress, nontoxic. PHYSICAL EXAMINATION: VITAL SIGNS: Temperature 99, blood pressure 90/50, respiratory rate 18, and heart rate 118. HEENT: Unremarkable. NECK: Supple. LUNGS: Decreased breath sounds. HEART: S1 and S2. ABDOMEN: Soft. LABORATORY DATA: Reveals a white count of 0.6, hemoglobin 7, and platelets 25. BUN 11 and creatinine of 0.6. ASSESSMENT AND PLAN: This 51-year-old male with past medical history of Waldenstrom macroglobulinemia, atrial fibrillation, diverticulitis, colostomy tube, Nneka procedure, stoma and skin infection, vertebral compression fractures, recent thoracic abscesses, wound infection initially with methicillin-resistant Staphylococcus aureus and enterococcus. The patient also had Staphylococcus epidermidis bacteremia in addition to pseudomonas and Acetobacter from the wound culture. Staphylococcus epidermidis's DYANA to vancomycin is 1 and problematic for vancomycin, currently on daptomycin, Zosyn, and gentamicin. The patient with pancytopenia and review of the orders confirms the daptomycin to be active, gentamicin to be active, and Zosyn to be active with a creatinine of 0.6 and a CK. We will check on the CK. We will order a CPK for tomorrow. Anatoliy Luna MD
[2017-06-06] MEDS: Digoxin 125 mcg (0.125 mg) Tab PO SCH (14:40)
[2017-06-06] MEDS: DAPTOmycin 600 MG in Sodium Chloride 0.9% 100 ML IV SCH (17:16)
--- NOTE | 2017-06-06 20:11 | PN ---
DATE: SUBJECTIVE: The patient is 51 years old, seen and examined, lying in bed, complaining of feeling tired and sleepy. PHYSICAL EXAMINATION: VITAL SIGNS: He has a temperature of 100, pulse 104, respiration 18, blood pressure 95/62. LUNGS: Bilateral fair airflow. No rhonchi or crackles. HEART: S1 and S2 audible. ABDOMEN: Soft. Colostomy in place. No bleeding in the colostomy bag. EXTREMITIES: Bilateral leg has a dry scaly dry skin. He has mid paraspinal abscess being dressing. ASSESSMENT: 1. Pancytopenia. 2. Waldenstrom macroglobulinemia. 3. Chronic atrial fibrillation. 4. Deconditioning and difficulty walking. 5. Cardiomyopathy. 6. Depression. PLAN: We will keep the patient on current medication. We will give one dose of Neupogen. Continue him on daptomycin as per ID recommendation. He is also getting Zosyn. Follow up with CBC and CMP in a.m. Pepito Gavin MD
--- NOTE | 2017-06-07 00:27 | PN ---
DATE: 06/06/2017 REASON FOR CONSULTATION: Continuity of care in transitional care unit, history of valvular heart disease, multiple myeloma, neutropenia, pancytopenia. SUBJECTIVE: The patient denies any chest pain, shortness of breath or any palpitation. OBJECTIVE: GENERAL: Lying flat in the bed, not in apparent distress. VITAL SIGNS: As follows, temperature afebrile, heart rate 104, blood pressure 95/62. HEENT: PERRLA. Extraocular muscles are intact. NECK: Supple. No carotid bruit. No thyromegaly. CHEST: Clear to auscultation. HEART: S1 and S2 regular. ABDOMEN: Soft. EXTREMITIES: Clubbing and cyanosis negative. LABORATORY DATA: Blood workup as follows, WBC 0.6, hemoglobin 7, hematocrit 22.3, platelet count 25. Sodium 130, potassium 4, chloride 91, CO2 of 37, anion gap of 12, BUN 11, and creatinine 0.6. IMPRESSION: A 51-year-old morbidly obese male with past medical history of moderate aortic regurgitation, multiple myeloma, status post chemo, pancytopenia, neutropenia, thrombocytopenia, chronic atrial fibrillation, admitted with back abscess and wound. Initially plan was for debridement, but MRI shows no evidence of osteomyelitis. The patient is being treated medically off anticoagulation because of severe thrombocytopenia, high risk of a spontaneous bleeding. Continue for now negative isolation as per Hem/Onc. Continue low dose Coreg as tolerated, digoxin 0.125 mg daily. Continue broad-spectrum antibiotic. We will follow with you. Most recently, the patient had a MUGA scan done that shows ejection fraction 57%. We will repeat the blood workup tomorrow. We will add mag and phosphate level as well. Driss Contreras MD
[2017-06-07] MEDS: Morphine 30 mg SR Tab PO SCH ×3 (00:42→22:56)
[2017-06-07] MEDS: Morphine 2 mg/ml ISec IVP PRN ×5 (02:33→18:18)
[2017-06-07] MEDS: Piperacillin/Tazobact 3.375 gm 100 ML IVPB SCH ×4 (05:19→23:08)
[2017-06-07 07:37] LABS: EOS % 0.7 % (1.5-5.0); GRAN # 1.23 (1.4-6.5); GRAN % 84.2 % (50.0-68.0); LYMPH # 0.2 (1.2-3.4); MEAN CELL VOLUME 102.9 fl (80.0-105.0); MEAN CORPUSCULAR HEMOGLOBIN 31.7 pg (25.0-35.0); MEAN CORPUSCULAR HGB CONC 30.8 g/dl (31.0-37.0); MEAN PLATELET VOLUME 10.9 fl (7.0-11.0); MONO # 0.1 (0.1-0.6); MONO % 4.1 % (1.0-6.0); RED CELL DISTRIBUTION WIDTH 19.6 % (11.5-14.5)
[2017-06-07 07:59] LABS: WHITE BLOOD COUNT 1.5 10^3/ul (4.5-11.0)
[2017-06-07 08:00] LABS: HEMATOCRIT 21.4 % (42.0-52.0)
[2017-06-07 08:15] LABS: ALB/GLOB RATIO 0.8 (1.1-1.8); ALKALINE PHOSPHATASE 57 U/L (38-126); ALT/SGPT 23 U/L (7-56); AST/SGOT 18 U/L (17-59); BILIRUBIN,TOTAL 1.6 mg/dL (0.2-1.3); BLOOD UREA NITROGEN 14 mg/dL (7-21); CALCIUM 8.7 mg/dL (8.4-10.5); CARBON DIOXIDE 34 mmol/L (21-33); CHLORIDE 93 mmol/L (98-107); GFR AFRICAN-AMERICAN > 60; GLUCOSE,RANDOM 101 mg/dL (70-110); MAGNESIUM 1.6 mg/dL (1.7-2.2); POTASSIUM 4.4 mmol/L (3.6-5.0); SODIUM 135 mmol/L (132-148); TOTAL PROTEIN 6.7 g/dL (5.8-8.3)
--- NOTE | 2017-06-07 08:26 | CON ---
DATE: 06/04/2017 LOCATION: The patient room 317, bed 1. REASON FOR CONSULTATION: Atrial fibrillation, aortic stenosis, mild LV diastolic dysfunction with ejection fraction of 47% and mild pulmonary hypertension with RVSP 40 mmHg. HISTORY OF PRESENT ILLNESS: A 51-year-old male who is known to have Waldenstrom macroglobulinemia, history of Nneka procedure in 03/2017 with colostomy bag for diverticular colonic disease, admitted with wounds in the back and needed surgery for those wounds, so cardiology followup was requested. The patient now is in transitional care unit for deconditioning and physical therapy. The patient is lying flat in bed without chest pain, shortness of breath or palpitation. The patient has known case of atrial fibrillation and has moderate aortic stenosis, bicuspid aortic valve, mild aortic regurgitation,LV ejection fraction of 47%, and RVSP 40 mmHg. This was on echo on 05/29/2017 and the patient had MUGA scan on 05/31/2017, which showed LV ejection fraction of 57%. PAST MEDICAL HISTORY: Positive for atrial fibrillation, morbid obesity, nonobstructive coronary artery disease, status post multiple myeloma, Waldenstrom macroglobulinemia, history of diverticular colonic disease, abscess formation, status post colostomy, anemia, history of pancytopenia, thrombocytopenia, and history of sepsis. Previous cardiac workup as mentioned above, the patient had MUGA scan on 05/31/2017, which showed LV ejection fraction of 57%, echo on 05/29/2017 showed mildly reduced LV systolic function with LV ejection fraction of 47%, moderate aortic stenosis, mild aortic regurgitation, possible bicuspid aortic valve, and mild pulmonary hypertension with RVSP of 40 mmHg. MEDICATIONS AT HOME: The patient was on digoxin, carvedilol,and acetaminophen. PERSONAL HISTORY: No history of smoking or drinking. REVIEW OF SYSTEMS: All other systems reviewed, positive mentioned in the history, otherwise negative. PHYSICAL EXAMINATION: VITAL SIGNS: Blood pressure 86/53, respirations 14, pulse 92, and temperature 98.2. HEENT: Head is normocephalic. Eyes: Pupils normal and conjunctivae pale. NECK: JVP low. Carotids equal. THORAX: AP diameter is normal. LUNGS: Clear. CARDIOVASCULAR: S1 and S2. Ejection systolic murmur, grade 2/3-6. No rubs. ABDOMEN: Protuberant. No organomegaly. EXTREMITIES: No clubbing and no cyanosis. LABORATORY DATA: WBC 1.3, hemoglobin 7.4, hematocrit 24.0, and platelets 34. Sodium 137, potassium 4.1, BUN 10, and creatinine 0.6. Calcium 8.3, total bilirubin 1.7, AST 15, ALT 31, alkaline phosphatase 63, total protein 6.5, and albumin 2.8. DIAGNOSES: 1. Atrial fibrillation. 2. Moderate aortic stenosis. 3. Mild aortic regurgitation. 4. Mild left ventricular systolic dysfunction with ejection fraction of 47%. 5. Mild pulmonary hypertension with right ventricular systolic pressure of 40 mmHg. 6. Waldenstrom macroglobulinemia, status post colostomy. 7. Multiple myeloma. 8. Anemia and thrombocytopenia. 9. Anemia and pancytopenia. 10. Wounds on the back for which the patient had surgery. PLAN: The patient is on carvedilol 3.125 b.i.d.. The patient is on daptomycin IV q.24 hours, digoxin 0.125 daily, piperacillin and tazobactam g IV q.6 hours, Venofer 100 mg IV and Duragesic patch. The patient is on neutropenic isolation. We will continue present therapy and we will follow closely with you. Driss Lawrence MD
[2017-06-07] MEDS: Docusate-Senna 50 mg-8.6 mg Tab PO SCH (10:48)
[2017-06-07] MEDS ORDERED: Magnesium Sulfate 1 gm in D5W 1 GM/100 ML BAG IVPB ONE (12:10)
--- NOTE | 2017-06-07 14:01 | PN ---
DATE: 06/07/2017 LOCATION: The patient in room 317, bed 1. REASON FOR CONSULTATION AND FOLLOWUP: Aortic stenosis, multiple myeloma, neutropenia, and pancytopenia. SUBJECTIVE: The patient is lying flat in bed without chest pain, shortness of breath, or palpitation. PHYSICAL EXAMINATION: VITAL SIGNS: Blood pressure 91/58, respirations 18, pulse 90, and temperature 98.5. HEENT: Head is normocephalic. Eyes, pupils are normal. Conjunctivae pale. NECK: JVP low. Carotids are equal. Thorax, AP diameter normal. LUNGS: Clear. CARDIOVASCULAR: S1 and S2. Ejection systolic murmur grade 2-3/6. No rub. ABDOMEN: Protuberant. No organomegaly. EXTREMITIES: No clubbing. No cyanosis. LABORATORY DATA: WBC 1.5, hemoglobin 6.6, hematocrit 21.4, and platelets 31. Sodium 135, potassium 4.4, BUN 14, creatinine 0.7. Calcium 8.7, phosphorus 4.0, and magnesium 1.6. Total bilirubin 1.6. AST and ALT normal. Total protein 6.7 and albumin 3.0. DIAGNOSES: Moderate aortic regurgitation, moderate aortic stenosis, pancytopenia, anemia, neutropenia, thrombocytopenia, chronic atrial fibrillation, admitted with back abscess and wound, status post of debridement of the wound from the back. The patient not on anticoagulation because of high risk of bleeding with history of thrombocytopenia. The patient is on negative isolation. PLAN: We will continue negative isolation. Continue low-dose Coreg. Digoxin 0.125 daily continued. Continue broad-spectrum antibiotics. Recent MUGA scan shows LV ejection fraction of 57%. MUGA was on 05/31/2017. Echo was on 05/29/2017, which showed LV ejection fraction of 47%, moderate aortic stenosis, mild aortic regurgitation, possible bicuspid aortic valve, and mild pulmonary hypertension with RVSP of 40 mmHg. Low magnesium. Plan is the patient's hemoglobin and hematocrit is decreasing probably we will need blood transfusion. The patient being followed by Dr. Abreu, oncology/hematology. The patient is on digoxin 0.125 p.o. daily and carvedilol 3.125 p.o. daily. The patient on Zosyn g IV q.6 hours. We will give magnesium sulfate and I will repeat magnesium level in the morning. We will follow. Driss Lawrence MD [facility] # [id number]
[2017-06-07] MEDS: Digoxin 125 mcg (0.125 mg) Tab PO SCH (14:03)
--- NOTE | 2017-06-07 16:01 | CP.PCM.PN ---
Subjective - Date & Time of Evaluation Date of Evaluation: 06/07/17 Time of Evaluation: 11:40 - Subjective Subjective: Comfortable, not in distress, afebrile. Objective - Vital Signs/Intake and Output Vital Signs (last 24 hours): Temp Pulse Resp BP Pulse Ox 98.5 F 90 18 91/58 L 96 06/07/17 05:38 06/07/17 10:47 06/07/17 05:38 06/07/17 10:47 06/07/17 05:38 Intake and Output: 06/07/17 06/07/17 06:59 18:59 Intake Total 120 Output Total 450 Balance -330 - Medications Medications: Current Medications Acetaminophen (Tylenol 325mg Tab) 650 mg PO Q6H PRN PRN Reason: temp 101 Last Admin: 06/06/17 11:55 Dose: 650 mg Carvedilol (Coreg) 3.125 mg PO DAILY [facility] Last Admin: 06/07/17 10:47 Dose: Not Given Digoxin (Lanoxin) 0.125 mg PO 1400 [facility] Last Admin: 06/06/17 14:40 Dose: 0.125 mg Fentanyl (Duragesic) 1 patch TD Q72H [facility] Last Admin: 06/05/17 21:35 Dose: 1 patch Gentamicin Sulfate 200 mg/ (Sodium Chloride) 105 mls @ 100 mls/hr IVPB Q24H [facility] PRN Reason: Protocol Last Admin: 06/06/17 17:15 Dose: 100 mls/hr Daptomycin 600 mg/ Sodium (Chloride) 100 mls @ 200 mls/hr IV Q24H [facility] Stop: 06/16/17 17:16 Last Admin: 06/06/17 17:16 Dose: 200 mls/hr Piperacillin Sod/Tazobactam Sod (Zosyn 3.375 In Ns 100ml) 100 mls @ 200 mls/hr IVPB Q6 [facility] PRN Reason: Protocol Stop: 06/14/17 12:01 Last Admin: 06/07/17 11:43 Dose: 200 mls/hr Magnesium Sulfate/Dextrose (Magnesium Sulfate 1 Gm/100 Ml D5w) 1 gm in 100 mls @ 100 mls/hr IVPB ONCE ONE Stop: 06/07/17 13:09 Lorazepam (Ativan) 0.5 mg PO HS [facility] Last Admin: 06/06/17 22:30 Dose: 0.5 mg Mirtazapine (Remeron) 22.5 mg PO HS [facility] Last Admin: 06/06/17 22:31 Dose: 22.5 mg Morphine Sulfate (Morphine Extended Release Tab) 30 mg PO Q12 [facility] Last Admin: 06/07/17 10:47 Dose: 30 mg Morphine Sulfate (Morphine) 2 mg IVP Q3 PRN PRN Reason: pain scale (8-10) Last Admin: 06/07/17 10:45 Dose: 2 mg Senna/Docusate Sodium (Senokot S 50 Mg-8.6 Mg) 1 tab PO DAILY [facility] Last Admin: 06/07/17 10:48 Dose: 1 tab - Labs Labs: 06/07/17 07:26 06/07/17 07:26 - Constitutional Appears: Non-toxic, No Acute Distress - Head Exam Head Exam: NORMAL INSPECTION - Neck Exam Neck Exam: absent: Meningismus - Respiratory Exam Respiratory Exam: Decreased Breath Sounds - Cardiovascular Exam Cardiovascular Exam: +S1, +S2 - GI/Abdominal Exam GI & Abdominal Exam: Soft. absent: Tenderness Assessment and Plan - Assessment and Plan (Free Text) Plan: assessment sepsis due to thoracic area soft tissue infection (recurrence) with methicillin- resistant coagulase negative staph (bacteremia with this as well), Pseudomonas, Acinetobacter - no evidence of vertebral osteomyelitis on MRI; previously the abscess had MRSA and E. faecalis history of C. diff associated diarrhea Leukopenia without fever, probably related to his Waldenstrom's macroglobulinemia history of intra-abdominal infection/colitis history of Acute sigmoid diverticulitis with abscess formation S/P resection and colostomy placement Waldenstrom's Macroglobinemia currently on chemotherapy atrial fibrillation on anticoagulation Plan continue Daptomycin (the CoNS Vanco DYANA from the previous culture had an DYANA of 1, and this may be problematic for Vancomycin) and Zosyn and Gentamicin since the Acinetobacter is resistant to Zosyn and Merrem 2D echo does not show vegetations but the valves are thickened - MARIANNA may be considered; repeat blood cx are negative (05/27/2017) will continue to monitor clinically
[2017-06-07] MEDS: DAPTOmycin 600 MG in Sodium Chloride 0.9% 100 ML IV SCH (17:06)
--- NOTE | 2017-06-07 17:48 | PN ---
SUBJECTIVE: Complained of generalized weakness, participating in bedside therapy. No nausea, vomiting, or diarrhea. PHYSICAL EXAMINATION: VITAL SIGNS: He is afebrile, pulse 90, respirations 18, and blood pressure 91/58. LUNGS: Bilateral fair airflow. No rhonchi or crackles. HEART: S1 and S2 audible. ABDOMEN: Soft and obese. Nontender. Colostomy is in place. No rectal bleeding, no bleeding. EXTREMITIES: Bilateral leg, no edema. LABORATORY DATA: WBC is 1.5, hemoglobin 6.6, hematocrit 21.4, and platelet of 31. Chemistry: Sodium 135, potassium 4.4, chloride 93, CO2 of 34, BUN 15, and creatinine 0.7. Blood sugar of 101. LFTs are within normal limits. ASSESSMENT: 1. Pancytopenia. 2. Paraspinal abscess status post I and D, growing pseudomonas aeruginosa, Acinetobacter baumannii and coag negative staph. Repeat blood cultures are negative. 3. Waldenstrom macroglobulinemia. 4. Deconditioning. 5. Cardiomyopathy. 6. Chronic atrial fibrillation. 7. Electrolyte imbalance. PLAN: The patient is getting Neupogen, he received one dose yesterday. He is on daptomycin. He is getting gentamicin. He will be receiving one blood transfusion today. We will discuss with Dr. Ward about his overall condition. Prognosis is . Pepito Gavin MD
[2017-06-08] MEDS: Morphine 2 mg/ml ISec IVP PRN ×3 (00:31→16:01)
--- NOTE | 2017-06-08 01:17 | CON ---
DATE: 06/07/2017 CONSULT REQUESTED BY: Dr. Gavin. REASON FOR CONSULTATION: Waldenstrom's pancytopenia. HISTORY OF PRESENT ILLNESS: Mr. Garcia is 51-year-old male with end-stage Waldenstrom's macroglobulinemia. He is being treated at [facility] with chlorambucil. He was admitted with paraspinal abscess which was drained. Positive for Acinetobacter and other polymicrobial growth. He is transferred to transitional care unit to complete the course of antibiotics. He has pancytopenia requiring frequent blood transfusion, growth factors. He also has a history of atrial fibrillation and chronic anemia. SOCIAL HISTORY: . Lives with the . ALLERGIES: NO KNOWN DRUG ALLERGIES. CURRENT MEDICATIONS: Tylenol 650 q.6 hours p.r.n., Coreg 3.125 mg p.o. daily, daptomycin q.24 hours, digoxin 0.125 mg daily, fentanyl patch 25 mcg daily, gentamicin, Ativan 0.5 mg p.o. at bedtime, Remeron bedtime, MS Contin 30 mg q.12 hours, immediate release morphine 2 mg q.3 hours p.r.n., Zosyn q.6 hours, and Senokot 1 tablet daily. PHYSICAL EXAMINATION: GENERAL: He is confined to the bed, does not move. VITAL SIGNS: Temperature 98.5, heart rate 119 per minute, blood pressure 94/64, respiratory rate 18 per minute, 96% oxygen by nasal cannula. HEENT: Pallor positive. NECK: Supple. CHEST: Air entry present, equal bilaterally. No added sounds. CARDIOVASCULAR: S1 and S2 regular. ABDOMEN: Soft, nontender. EXTREMITIES: Bilateral edema. CENTRAL NERVOUS SYSTEM: Alert and oriented x3. No focal sensory motor deficit. LABORATORY DATA: White count 1.5, hemoglobin 6.6, hematocrit 21.4, platelet count 31,000. Sodium 135, potassium 4.4, creatinine 0.7, bilirubin 1.6. ASSESSMENT: 1. Waldenstrom's macroglobulinemia. 2. Pancytopenia. 3. Paraspinal abscess. 4. Atrial fibrillation. 5. Chronic obstructive pulmonary disease. 6. Chronic back pain. PLAN: He is currently on IV antibiotics as per ID. Hemoglobin is 6.6. One unit of blood transfusion arranged to be given in the Oncology infusion room. Nancy Ward MD [facility] # [id number] ANIRUDH
[2017-06-08 07:11] LABS: MEAN CELL VOLUME 103.6 fl (80.0-105.0); MEAN CORPUSCULAR HEMOGLOBIN 32.8 pg (25.0-35.0); MEAN CORPUSCULAR HGB CONC 31.7 g/dl (31.0-37.0); MEAN PLATELET VOLUME 10.2 fl (7.0-11.0); PLATELET COUNT 33 10^3/uL (120.0-450.0); RED CELL DISTRIBUTION WIDTH 19.6 % (11.5-14.5)
[2017-06-08 07:23] LABS: WHITE BLOOD COUNT 1.8 10^3/ul (4.5-11.0)
[2017-06-08 07:24] LABS: HEMATOCRIT 20.2 % (42.0-52.0)
[2017-06-08 07:40] LABS: BLOOD UREA NITROGEN 12 mg/dL (7-21); CALCIUM 8.5 mg/dL (8.4-10.5); CARBON DIOXIDE 37 mmol/L (21-33); CHLORIDE 93 mmol/L (95-110); GFR AFRICAN-AMERICAN > 60; GLUCOSE,RANDOM 95 mg/dL (70-110); MAGNESIUM 1.7 mg/dL (1.7-2.2); PHOSPHOROUS 3.6 mg/dL (2.5-4.5); POTASSIUM 4.3 mmol/L (3.6-5.0); SODIUM 134 mmol/L (132-148)
[2017-06-08 08:40] LABS: NEUTROPHIL 83 % (50.0-70.0)
[2017-06-08 08:41] LABS: ANISOCYTOSIS 1+; EOSINOPHIL 1 % (0.0-3.0); HYPOCHROMIA 2+; PLATELET ESTIMATE LOW (NORMAL); POIKILOCYTOSIS SLIGHT; POLYCHROMASIA 1+
[2017-06-08 08:42] LABS: OVALOCYTES SLIGHT; TEAR DROP CELLS SLIGHT
[2017-06-08] MEDS: Docusate-Senna 50 mg-8.6 mg Tab PO SCH (09:16)
[2017-06-08] MEDS: Morphine 30 mg SR Tab PO SCH ×2 (09:16→21:48)
[2017-06-08] MEDS ORDERED: Magnesium Sulfate 2 GM in Sodium Chloride 0.9% 100 ML IVPB ONE (11:55)
[2017-06-08] MEDS: Piperacillin/Tazobact 3.375 gm 100 ML IVPB SCH ×2 (14:15→18:44)
--- NOTE | 2017-06-08 15:19 | PN ---
DATE: 06/08/2017 REASON FOR CONSULTATION: Aortic stenosis, aortic regurgitation, multiple myeloma, neutropenia and pancytopenia. SUBJECTIVE: Denies any chest pain, shortness of breath, or any palpitation. OBJECTIVE/PHYSICAL EXAMINATION: GENERAL: Lying flat in the bed, not in apparent distress, on negative isolation. VITAL SIGNS: Afebrile, heart rate is 76, and blood pressure is 91/61. HEENT: PERRLA. Extraocular muscles intact. NECK: Supple. No carotid bruits or thyromegaly. CHEST: Clear to auscultation. HEART: S1 and S2 regular. ABDOMEN: Soft. EXTREMITIES: Clubbing and cyanosis negative. LABORATORY DATA: Blood workup as follows: WBC 1.8, hemoglobin 6.4, hematocrit 20.2, and platelet count 33. Sodium 134, potassium 4.3, chloride 93, carbon dioxide 37, anion gap , BUN 12, creatinine 0.7, and magnesium 1.7. IMPRESSION: Pancytopenia, neutropenia, multiple myeloma, chronic atrial fibrillation, obesity, large wound in the back, MRI negative for osteomyelitis, mitral regurgitation, aortic regurgitation, and aortic stenosis. RECOMMENDATIONS: Aggressive medical treatment. No cardiac intervention at this point. Canceled the packed RBC transfusion as per hematology/oncology. Continue carvedilol 3.125 mg as blood pressure . We will follow with you. CVS status is stable. We will supplement magnesium. Thank you Dr. Abreu for providing me the opportunity in taking care of the patient. We will follow with you. Driss Contreras MD
[2017-06-08] MEDS: Digoxin 125 mcg (0.125 mg) Tab PO SCH (16:02)
[2017-06-08] MEDS: DAPTOmycin 600 MG in Sodium Chloride 0.9% 100 ML IV SCH (18:43)
[2017-06-09] MEDS: Piperacillin/Tazobact 3.375 gm 100 ML IVPB SCH ×4 (00:31→17:44)
[2017-06-09] MEDS: Morphine 2 mg/ml ISec IVP PRN ×6 (00:32→21:27)
--- NOTE | 2017-06-09 08:33 | PN ---
DATE: 06/08/2017 SUBJECTIVE: The patient is 51 years old, seen and examined, lying in bed. He is refusing blood transfusion today. No evidence of bleeding. No chest pain. No shortness of breath. Feels lethargic and depressed. PHYSICAL EXAMINATION VITAL SIGNS: He is afebrile, pulse 73, respirations 18, blood pressure 90/48. LUNGS: Bilateral fair airflow. No rhonchi or crackle. HEART: S1 and S2 audible. ABDOMEN: Soft, obese, colostomy in place. No blood in the colostomy bag. There is semiliquid stool in the colostomy. He has wound in the sacral area and mid thoracic area that seems to be healing. EXTREMITIES: Bilateral leg scaly dry skin. LABORATORY DATA: WBC 1.8, hemoglobin 6.4, hematocrit 13.2, platelet of 33. Chemistry: Sodium 134, potassium 4.3, chloride 93, CO2 37, BUN 12, creatinine 0.7, and blood sugar 195. ASSESSMENT: 1. Status post paraspinal abscess irrigation and debridement growing pseudomonas, and coag negative staph currently on daptomycin and Zenta. 2. Pancytopenia. 3. Anemia. 4. Cardiomyopathy. 5. Deconditioning and difficulty walking. PLAN: The patient is receiving one blood transfusion. He is getting daptomycin, Zenta, and Zosyn. We will talk to the surgical team about the wound. We will follow up CBC and CMP in am., and I will try to get in touch with Dr. Saravia in to update him about the situation. Pepito Gavin MD cc:
[2017-06-09] MEDS: Morphine 30 mg SR Tab PO SCH ×2 (11:33→21:20)
[2017-06-09] MEDS: Docusate-Senna 50 mg-8.6 mg Tab PO SCH (11:34)
[2017-06-09] MEDS: Digoxin 125 mcg (0.125 mg) Tab PO SCH (14:52)
--- NOTE | 2017-06-09 15:07 | CP.PCM.PN ---
Subjective - Date & Time of Evaluation Date of Evaluation: 06/09/17 Time of Evaluation: 11:35 - Subjective Subjective: Still with back pain but a little less, no fevers overnight, no nausea, no diarrhea. Objective - Vital Signs/Intake and Output Vital Signs (last 24 hours): Temp Pulse Resp BP Pulse Ox 98.4 F 102 H 15 84/55 L 97 06/08/17 17:52 06/08/17 17:52 06/08/17 17:52 06/08/17 17:52 06/08/17 10:00 - Medications Medications: Current Medications Acetaminophen (Tylenol 325mg Tab) 650 mg PO Q6H PRN PRN Reason: temp 101 Last Admin: 06/06/17 11:55 Dose: 650 mg Carvedilol (Coreg) 3.125 mg PO DAILY [facility] Last Admin: 06/08/17 09:15 Dose: Not Given Digoxin (Lanoxin) 0.125 mg PO 1400 [facility] Last Admin: 06/08/17 16:02 Dose: 0.125 mg Fentanyl (Duragesic) 1 patch TD Q72H [facility] Last Admin: 06/08/17 21:30 Dose: 1 patch Gentamicin Sulfate 200 mg/ (Sodium Chloride) 105 mls @ 100 mls/hr IVPB Q24H [facility] PRN Reason: Protocol Last Admin: 06/08/17 18:44 Dose: 100 mls/hr Daptomycin 600 mg/ Sodium (Chloride) 100 mls @ 200 mls/hr IV Q24H [facility] Stop: 06/16/17 17:16 Last Admin: 06/08/17 18:43 Dose: 200 mls/hr Piperacillin Sod/Tazobactam Sod (Zosyn 3.375 In Ns 100ml) 100 mls @ 200 mls/hr IVPB Q6 [facility] PRN Reason: Protocol Stop: 06/14/17 12:01 Last Admin: 06/09/17 05:43 Dose: 200 mls/hr Lorazepam (Ativan) 0.5 mg PO HS [facility] Last Admin: 06/08/17 21:48 Dose: 0.5 mg Mirtazapine (Remeron) 22.5 mg PO HS [facility] Last Admin: 06/08/17 21:47 Dose: 22.5 mg Morphine Sulfate (Morphine Extended Release Tab) 30 mg PO Q12 [facility] Last Admin: 06/08/17 21:48 Dose: 30 mg Morphine Sulfate (Morphine) 2 mg IVP Q3 PRN PRN Reason: pain scale (8-10) Last Admin: 06/09/17 03:36 Dose: 2 mg Senna/Docusate Sodium (Senokot S 50 Mg-8.6 Mg) 1 tab PO DAILY [facility] Last Admin: 06/08/17 09:16 Dose: 1 tab - Labs Labs: 06/08/17 06:45 06/08/17 06:45 - Constitutional Appears: Non-toxic, No Acute Distress - Head Exam Head Exam: NORMAL INSPECTION - ENT Exam ENT Exam: Mucous Membranes Moist - Neck Exam Neck Exam: absent: Meningismus - Respiratory Exam Respiratory Exam: Decreased Breath Sounds - Cardiovascular Exam Cardiovascular Exam: +S1, +S2 - GI/Abdominal Exam GI & Abdominal Exam: Soft. absent: Tenderness Assessment and Plan - Assessment and Plan (Free Text) Plan: assessment sepsis due to thoracic area soft tissue infection (recurrence) with methicillin- resistant coagulase negative staph (bacteremia with this as well), Pseudomonas, Acinetobacter - no evidence of vertebral osteomyelitis on MRI; previously the abscess had MRSA and E. faecalis history of C. diff associated diarrhea Leukopenia without fever, probably related to his Waldenstrom's macroglobulinemia history of intra-abdominal infection/colitis history of Acute sigmoid diverticulitis with abscess formation S/P resection and colostomy placement Waldenstrom's Macroglobinemia currently on chemotherapy atrial fibrillation on anticoagulation Plan continue Daptomycin (the CoNS Vanco DYANA from the previous culture had an DYANA of 1, and this may be problematic for Vancomycin) and Zosyn and Gentamicin since the Acinetobacter is resistant to Zosyn and Merrem 2D echo does not show vegetations but the valves are thickened - MARIANNA may be considered; repeat blood cx are negative (05/27/2017) will continue to follow clinically
--- NOTE | 2017-06-09 15:15 | PN ---
DATE: 06/09/2017 LOCATION: The patient is in room 317, bed 1. REASON FOR CONSULTATION AND FOLLOWUP: Aortic stenosis, aortic regurgitation, multiple myeloma, neutropenia, and pancytopenia. SUBJECTIVE: The patient is lying flat in bed without any chest pain, shortness of breath, or palpitation. PHYSICAL EXAMINATION VITAL SIGNS: Blood pressure 90/48, respirations 18, pulse 73, and temperature 98.7. HEENT: Head is normocephalic. Eyes, pupils are normal. Conjunctivae pale. NECK: JVP low. Carotids are equal. Thorax, AP diameter normal. LUNGS: Clear. CARDIOVASCULAR: S1 and S2. Ejection systolic murmur grade 3/6. No rub. ABDOMEN: No organomegaly. Bowel are normal. EXTREMITIES: No clubbing. No cyanosis. LABORATORY DATA: WBC 1.8, hemoglobin 6.4, hematocrit 20.2, and platelets 33. Sodium 134, potassium 4.3, BUN 12, creatinine 0.7, random glucose 95, calcium 8.5, phosphorus 3.6, and magnesium 1.7. Total protein 6.7 and albumin 3.0. DIAGNOSES: Pancytopenia, neutropenia, anemia, multiple myeloma, chronic atrial fibrillation, obesity, large wound in the back, MRI negative for osteomyelitis, mitral regurgitation, aortic regurgitation, aortic stenosis, and severe anemia. PLAN: To continue digoxin 0.125 p.o. daily, Coreg 3.125 p.o. daily, daptomycin 600 mg IV q. 24 hours, gentamicin 200 mg IV 24 hours, Granix 300 mcg subQ daily, Remeron 22.5 mg p.o. at bedtime, piperacillin/tazobactam 3.375 g IV q. 6 hours, blood transfusion as per hematology and oncology. We will continue to follow closely. Driss Lawrence MD
[2017-06-09 16:11] LABS: EOS % 0.7 % (1.5-5.0); GRAN # 1.21 (1.4-6.5); GRAN % 85.8 % (50.0-68.0); LYMPH # 0.1 (1.2-3.4); LYMPH % 8.5 % (22.0-35.0); MEAN CELL VOLUME 104.4 fl (80.0-105.0); MEAN CORPUSCULAR HGB CONC 30.7 g/dl (31.0-37.0); MEAN PLATELET VOLUME 9.1 fl (7.0-11.0); MONO # 0.1 (0.1-0.6); RED CELL DISTRIBUTION WIDTH 19.5 % (11.5-14.5)
[2017-06-09 16:16] LABS: HEMATOCRIT 21.2 % (42.0-52.0); WHITE BLOOD COUNT 1.4 10^3/ul (4.5-11.0)
[2017-06-09] MEDS: DAPTOmycin 600 MG in Sodium Chloride 0.9% 100 ML IV SCH (17:43)
--- NOTE | 2017-06-09 20:26 | PN ---
SUBJECTIVE: The patient is a 51-year-old male, currently being treated with physical therapy on the transitional care unit, is quite debilitated. He has a Mercedes's granulocytosis. He has had a recent sepsis. He has pancytopenia. The patient is also depressed. He is awake, alert, and coherent. He is getting physical therapy. He claims his pain is mostly under control, but realizes he cannot have more pain medications. He is oriented x3. He is aware of his surroundings and his condition. The patient although is quite weak, debilitated. He denies any suicidal ideation. The patient's current laboratory data, his white count is 1800, hemoglobin of 6.4, platelet count 33,000. The patient's chemistries, sodium 134, potassium 4.3, chloride 93, CO2 of 37, anion gap 8, BUN 12, creatinine 0.7. CURRENT MEDICATIONS: He is receiving Ativan 0.5 mg at bedtime, Coreg, daptomycin, fentanyl patch, he is receiving digoxin, gentamicin IV with an extended release tablets q. 12 h., we will obtain IV q. 3 h. p.r.n. Cubicin, Remeron 22.5 mg p.o. at bedtime. PHYSICAL EXAMINATION: VITAL SIGNS: Blood pressure is 83/56, pulse 93, respirations 18 per minute. IMPRESSION: The patient has depressive disorder, recently under control. He is very debilitated. He has Waldenstrom's macroglobulinemia, he has pancytopenia. The patient does not from current medication and is reasonably comfortable. PLAN: Continue mirtazapine 22.5 mg at bedtime and continue lorazepam 0.5 mg at bedtime. Alton Guthrie MD
[2017-06-10] MEDS: Piperacillin/Tazobact 3.375 gm 100 ML IVPB SCH ×4 (00:16→17:12)
--- NOTE | 2017-06-10 00:26 | CP.PCM.PN ---
Subjective - Date & Time of Evaluation Date of Evaluation: 06/09/17 Time of Evaluation: 10:00 - Subjective Subjective: Pain controlled . Hb declined to 6.4. On Iv antibiotics for paraspinal abscess. Objective - Vital Signs/Intake and Output Vital Signs (last 24 hours): Temp Pulse Resp BP Pulse Ox 99.2 F 92 H 20 82/57 L 96 06/09/17 16:00 06/09/17 16:00 06/09/17 16:00 06/09/17 16:00 06/09/17 16:00 Intake and Output: 06/09/17 06/10/17 18:59 06:59 Intake Total 600 Output Total 400 Balance 200 - Medications Medications: Current Medications Acetaminophen (Tylenol 325mg Tab) 650 mg PO Q6H PRN PRN Reason: temp 101 Last Admin: 06/06/17 11:55 Dose: 650 mg Carvedilol (Coreg) 3.125 mg PO DAILY [facility] Last Admin: 06/09/17 11:34 Dose: Not Given Digoxin (Lanoxin) 0.125 mg PO 1400 [facility] Last Admin: 06/09/17 14:52 Dose: 0.125 mg Fentanyl (Duragesic) 1 patch TD Q72H [facility] Last Admin: 06/08/17 21:30 Dose: 1 patch Gentamicin Sulfate 200 mg/ (Sodium Chloride) 105 mls @ 100 mls/hr IVPB Q24H [facility] PRN Reason: Protocol Last Admin: 06/09/17 17:44 Dose: 100 mls/hr Daptomycin 600 mg/ Sodium (Chloride) 100 mls @ 200 mls/hr IV Q24H [facility] Stop: 06/16/17 17:16 Last Admin: 06/09/17 17:43 Dose: 200 mls/hr Piperacillin Sod/Tazobactam Sod (Zosyn 3.375 In Ns 100ml) 100 mls @ 200 mls/hr IVPB Q6 [facility] PRN Reason: Protocol Stop: 06/14/17 12:01 Last Admin: 06/10/17 00:16 Dose: 200 mls/hr Lorazepam (Ativan) 0.5 mg PO HS [facility] Last Admin: 06/09/17 21:20 Dose: 0.5 mg Mirtazapine (Remeron) 22.5 mg PO HS [facility] Last Admin: 06/09/17 21:21 Dose: 22.5 mg Morphine Sulfate (Morphine Extended Release Tab) 30 mg PO Q12 [facility] Last Admin: 06/09/17 21:20 Dose: 30 mg Morphine Sulfate (Morphine) 2 mg IVP Q3 PRN PRN Reason: pain scale (8-10) Last Admin: 06/09/17 21:27 Dose: 2 mg Senna/Docusate Sodium (Senokot S 50 Mg-8.6 Mg) 1 tab PO DAILY [facility] Last Admin: 06/09/17 11:34 Dose: 1 tab - Labs Labs: 06/09/17 16:02 06/08/17 06:45 - Constitutional Appears: Chronically Ill - Head Exam Head Exam: ATRAUMATIC, NORMAL INSPECTION, NORMOCEPHALIC - Eye Exam Eye Exam: Normal appearance Pupil Exam: NORMAL ACCOMODATION - Neck Exam Neck Exam: Normal Inspection - Respiratory Exam Respiratory Exam: Clear to Ausculation Bilateral, NORMAL BREATHING PATTERN - GI/Abdominal Exam GI & Abdominal Exam: Soft, Normal Bowel Sounds - Extremities Exam Extremities Exam: Normal Inspection - Neurological Exam Neurological Exam: Alert, Oriented x3 - Skin Skin Exam: Normal Color, Warm Assessment and Plan - Assessment and Plan (Free Text) Assessment: 1. waldenstorm. 2. Pancytopenia 3. CHF 4. Bedbound. Plan : 1 unit of PRBC . pain controlled on current meds. On IV antibiotics as per ID.
[2017-06-10] MEDS: Morphine 2 mg/ml ISec IVP PRN ×5 (05:39→21:49)
--- NOTE | 2017-06-10 08:46 | PN ---
DATE: 06/09/2017 SUBJECTIVE: The patient is 51 years old, seen and examined, lying in bed, seems to be comfortable, complaining of back pain. No nausea or vomiting. No diarrhea. Scanty cough, eating well. Colostomy is functional. No blood in the stool. PHYSICAL EXAMINATION: VITAL SIGNS: The patient is afebrile, pulse 92, respirations 20, and blood pressure 82/57. LUNGS: Bilateral fair air flow. HEART: S1 and S2, audible. ABDOMEN: Soft and nontender. No rebound. No guarding. NEUROLOGICAL: The patient is awake and alert, has generalized weakness, has difficulty walking, unable to standup or walk. LABORATORY DATA: WBC is 1.4, hemoglobin 6.5, hematocrit 21.2, and platelet of 31. Chemistry is not available. ASSESSMENT AND PLAN: 1. Pancytopenia. 2. Paraspinal abscess, status post incision and drainage. 3. Hypotension. 4. Chronic atrial fibrillation. 5. Cardiomyopathy with recent MUGA scan shows ejection fraction of 57%. Currently, the patient is on daptomycin. He is on gentamicin. He is on Zosyn. We will continue him on his analgesic. I have discussed and updated the patient's photographer in [place]. We will follow up this patient closely. Continue bedside exercise. Pepito Gavin MD
[2017-06-10] MEDS: Digoxin 125 mcg (0.125 mg) Tab PO SCH (14:29)
[2017-06-10] MEDS: Morphine 30 mg SR Tab PO SCH (14:30)
[2017-06-10] MEDS: Docusate-Senna 50 mg-8.6 mg Tab PO SCH (14:30)
--- NOTE | 2017-06-10 16:04 | PN ---
DATE OF SERVICE: 06/10/2017 REASON FOR CONSULTATION: Follow up aortic stenosis, aortic regurgitation, multiple myeloma, neutropenia, and pancytopenia, cardiac evaluation and followup. SUBJECTIVE: The patient denies any chest pain, shortness of breath, feels better. OBJECTIVE: GENERAL: Not in apparent distress, lying flat in the bed. VITAL SIGNS: Temperature afebrile, heart rate 92, blood pressure 88/56. HEENT: PERRLA. Extraocular muscles intact. NECK: Supple. No carotid bruits. No thyromegaly. CHEST: Clear to auscultation. HEART: S1 and S2 regular. ABDOMEN: Soft. EXTREMITIES: Clubbing and cyanosis negative. LABORATORY DATA: Blood workup as follows. WBC 1.4, hemoglobin 6.5, hematocrit 21.2, platelet count 31. Chemistries, sodium 134, potassium 4.6, chloride 96, carbon dioxide 37, anion gap of 18, BUN 12, creatinine 0.7. IMPRESSION: A 51-year-old male with past medical history significant for multiple myeloma, on chemotherapy, pancytopenia, neutropenia, thrombocytopenia, aortic regurgitation, aortic stenosis, valvular heart disease, normal coronaries, nonobstructive coronary artery disease, large wound in the back, MRI is negative for osteomyelitis, severe anemia. RECOMMENDATION: Discontinue Coreg. The patient has low blood pressure. Continue broad spectrum antibiotic. Overall, the patient's condition is critical. [facility] prognosis guarded. Hem/Onc followup for anemia, thrombocytopenia, and neutropenia. Driss Contreras MD
[2017-06-10 16:27] VITALS: O2SAT 97
[2017-06-10] MEDS: DAPTOmycin 600 MG in Sodium Chloride 0.9% 100 ML IV SCH (17:24)
--- NOTE | 2017-06-10 23:29 | PN ---
DATE: SUBJECTIVE: The patient is 51 years old, seen and examined, lying in bed, seems to be okay, complaining of generalized weakness. No energy. Doing bedside exercises. Receiving blood transfusion today. PHYSICAL EXAMINATION VITAL SIGNS: Temperature 99.4, pulse 94, respirations 20, and blood pressure 84/54. LUNGS: Bilateral fair air flow. No rhonchi or crackles. HEART: S1 and S2, audible. ABDOMEN: Soft. Colostomy in place. NEUROLOGICAL: He is awake and alert, able to communicate, generalized weakness, cannot really move his extremities. ASSESSMENT: 1. Pancytopenia. 2. Waldenstrom gammaglobulinemia. 3. Paraspinal abscess, status post incision and drainage. 4. Chronic atrial fibrillation, off of anticoagulant. PLAN: We will continue the patient on current antibiotic as recommended by ID. We will follow up his CBC in a.m. to assess the need if he needs further blood transfusion or needs Neupogen. Pepito Gavin MD
[2017-06-11] MEDS: Morphine 30 mg SR Tab PO SCH ×3 (00:28→23:21)
[2017-06-11] MEDS: Morphine 2 mg/ml ISec IVP PRN ×5 (02:27→21:27)
[2017-06-11] MEDS: Piperacillin/Tazobact 3.375 gm 100 ML IVPB SCH ×5 (05:58→18:00)
[2017-06-11 06:52] VITALS: RESP 18
[2017-06-11 08:15] LABS: EOS % 0.7 % (1.5-5.0); GRAN # 1.09 (1.4-6.5); GRAN % 79.6 % (50.0-68.0); LYMPH # 0.2 (1.2-3.4); LYMPH % 14.6 % (22.0-35.0); MEAN CELL VOLUME 104.6 fl (80.0-105.0); MEAN CORPUSCULAR HEMOGLOBIN 32.9 pg (25.0-35.0); MEAN CORPUSCULAR HGB CONC 31.4 g/dl (31.0-37.0); MEAN PLATELET VOLUME 11.1 fl (7.0-11.0); MONO # 0.1 (0.1-0.6); MONO % 5.1 % (1.0-6.0); RED CELL DISTRIBUTION WIDTH 19.6 % (11.5-14.5)
[2017-06-11 08:35] LABS: ALB/GLOB RATIO 0.8 (1.1-1.8); ALKALINE PHOSPHATASE 63 U/L (38-126); ALT/SGPT 14 U/L (7-56); AST/SGOT 23 U/L (17-59); BILIRUBIN,TOTAL 1.4 mg/dL (0.2-1.3); BLOOD UREA NITROGEN 13 mg/dL (7-21); CALCIUM 8.4 mg/dL (8.4-10.5); CARBON DIOXIDE 38 mmol/L (21-33); CHLORIDE 95 mmol/L (98-107); GFR AFRICAN-AMERICAN > 60; GLUCOSE,RANDOM 98 mg/dL (70-110); POTASSIUM 4.1 mmol/L (3.6-5.0); SODIUM 140 mmol/L (132-148); TOTAL PROTEIN 6.8 g/dL (5.8-8.3)
[2017-06-11 08:53] LABS: HEMATOCRIT 22.6 % (42.0-52.0); WHITE BLOOD COUNT 1.4 10^3/ul (4.5-11.0)
[2017-06-11] MEDS: Docusate-Senna 50 mg-8.6 mg Tab PO SCH ×2 (11:41→11:45)
--- NOTE | 2017-06-11 13:50 | PN ---
SUBJECTIVE: The patient is 51 years old, seen and examined, complained of back pain, wound was seen. He still has some thick, yellow pus coming out. No nausea or vomiting. Complained of generalized weakness. PHYSICAL EXAMINATION: VITAL SIGNS: He is afebrile, pulse 93, respirations 18, and blood pressure 90/64. LUNGS: Bilateral fair airflow. No rhonchi or crackle. HEART: S1 and S2 audible. ABDOMEN: Soft and obese. Colostomy is in place. No bleed in the colostomy bag. His mid thoracic wound is erythematous with thick, yellow pus. Cultures were taken and dressing is done again. Surgical team has to follow up for the wound care. LABORATORY EXAM: WBC is 1.4, hemoglobin 7.1, hematocrit of 22.6, platelet of 37. Chemistry: Sodium 140, potassium 4.1, chloride 95, CO2 of 38, BUN 13, and creatinine 0.7. Blood sugar of 98. ASSESSMENT: 1. Waldenstrom gammaglobulinemia. 2. Pancytopenia. 3. Discharging thoracic area wound, paraspinal. 4. Depression. 5. Status post colostomy. 6. Deconditioning. PLAN: Currently, the patient is on daptomycin. He is getting Neupogen. He is getting Zosyn and gentamicin. Dr. Schmidt and myself feel that he still needs antibiotics. I will order for PICC line and social media director are in the process of making arrangement for subacute rehab. Once the arrangement is made, discharge plan will be made. Pepito Gavin MD
--- NOTE | 2017-06-11 14:13 | CP.PCM.PN ---
Subjective - Date & Time of Evaluation Date of Evaluation: 06/11/17 Time of Evaluation: 11:55 - Subjective Subjective: Patient is still having back pain, no fevers overnight, no diarrhea. Objective - Vital Signs/Intake and Output Vital Signs (last 24 hours): Temp Pulse Resp BP Pulse Ox 98.1 F 101 H 18 88/59 L 97 06/11/17 06:00 06/11/17 06:00 06/11/17 06:00 06/11/17 06:00 06/11/17 06:00 Intake and Output: 06/11/17 06/11/17 06:59 18:59 Intake Total 420 Output Total 300 Balance 120 - Medications Medications: Current Medications Acetaminophen (Tylenol 325mg Tab) 650 mg PO Q6H PRN PRN Reason: temp 101 Last Admin: 06/06/17 11:55 Dose: 650 mg Carvedilol (Coreg) 3.125 mg PO DAILY [facility] Last Admin: 06/10/17 14:28 Dose: Not Given Digoxin (Lanoxin) 0.125 mg PO 1400 [facility] Last Admin: 06/10/17 14:29 Dose: 0.125 mg Fentanyl (Duragesic) 1 patch TD Q72H [facility] Last Admin: 06/08/17 21:30 Dose: 1 patch Gentamicin Sulfate 200 mg/ (Sodium Chloride) 105 mls @ 100 mls/hr IVPB Q24H [facility] PRN Reason: Protocol Last Admin: 06/10/17 17:13 Dose: 100 mls/hr Daptomycin 600 mg/ Sodium (Chloride) 100 mls @ 200 mls/hr IV Q24H [facility] Stop: 06/16/17 17:16 Last Admin: 06/10/17 17:24 Dose: 200 mls/hr Piperacillin Sod/Tazobactam Sod (Zosyn 3.375 In Ns 100ml) 100 mls @ 200 mls/hr IVPB Q6 [facility] PRN Reason: Protocol Stop: 06/14/17 12:01 Last Admin: 06/11/17 06:35 Dose: 200 mls/hr Lorazepam (Ativan) 0.5 mg PO HS [facility] Last Admin: 06/10/17 21:51 Dose: 0.5 mg Mirtazapine (Remeron) 22.5 mg PO HS [facility] Last Admin: 06/10/17 21:52 Dose: 22.5 mg Morphine Sulfate (Morphine Extended Release Tab) 30 mg PO Q12 [facility] Last Admin: 06/11/17 00:28 Dose: Not Given Morphine Sulfate (Morphine) 2 mg IVP Q3 PRN PRN Reason: pain scale (8-10) Last Admin: 06/11/17 08:15 Dose: 2 mg Senna/Docusate Sodium (Senokot S 50 Mg-8.6 Mg) 1 tab PO DAILY [facility] Last Admin: 06/10/17 14:30 Dose: 1 tab - Labs Labs: 06/09/17 16:02 06/11/17 08:11 - Constitutional Appears: Non-toxic, No Acute Distress - Head Exam Head Exam: NORMAL INSPECTION - ENT Exam ENT Exam: Mucous Membranes Moist - Neck Exam Neck Exam: absent: Lymphadenopathy, Meningismus - Respiratory Exam Respiratory Exam: Decreased Breath Sounds - Cardiovascular Exam Cardiovascular Exam: +S1, +S2 - GI/Abdominal Exam GI & Abdominal Exam: Soft. absent: Tenderness - Back Exam Additional comments: thoracic area still with open wound with serosanguinous material Assessment and Plan - Assessment and Plan (Free Text) Plan: assessment sepsis due to thoracic area soft tissue infection (recurrence) with methicillin- resistant coagulase negative staph (bacteremia with this as well), Pseudomonas, Acinetobacter - no evidence of vertebral osteomyelitis on MRI; previously the abscess had MRSA and E. faecalis history of C. diff associated diarrhea Leukopenia without fever, probably related to his Waldenstrom's macroglobulinemia history of intra-abdominal infection/colitis history of Acute sigmoid diverticulitis with abscess formation S/P resection and colostomy placement Waldenstrom's Macroglobinemia currently on chemotherapy atrial fibrillation on anticoagulation Plan continue Daptomycin (the CoNS Vanco DYANA from the previous culture had an DYANA of 1, and this may be problematic for Vancomycin) and Zosyn and Gentamicin since the Acinetobacter is resistant to Zosyn and Merrem 2D echo does not show vegetations but the valves are thickened - MARIANNA may be considered; repeat blood cx are negative (05/27/2017) repeated wound cx today (follow up results) since the wound continues to be open - may need to prolong antibiotics further because the wound is still open and still draining will continue to follow clinically discussed and saw patient with Dr. Gavin
--- NOTE | 2017-06-11 15:53 | PN ---
DATE: 06/11/2017 LOCATION: Room 317, bed 1. REASON FOR CONSULTATION: Followup his aortic stenosis, aortic regurgitation, multiple myeloma, neutropenia, pancytopenia. SUBJECTIVE: The patient is lying flat in bed without any cardiac symptoms like chest pain, shortness of breath, palpitations. PHYSICAL EXAMINATION: VITAL SIGNS: Blood pressure 90/64, respirations 18, pulse 93, temperature 98.1. HEENT: Head is normocephalic. Eyes, pupil normal. Conjunctiva pale. NECK: JVP low. Carotids are equal. Thorax, AP diameter normal. LUNGS: Clear. CARDIOVASCULAR: S1 and S2. Ejection systolic murmur grade 3/6. No rub. ABDOMEN: Soft, nontender. No organomegaly. Bowel sounds normal. EXTREMITIES: No clubbing. No cyanosis. LABORATORY DATA: WBC 1.4, hemoglobin 7.1, hematocrit 22.6, platelets 37. Sodium 140, potassium 4.1, BUN 13, creatinine 0.7, total bilirubin 1.4, AST, ALT normal. Alkaline phosphatase normal. Total protein 6.8, albumin 3.1. DIAGNOSES: Multiple myeloma, chemotherapy, pancytopenia, neutropenia, thrombocytopenia, severe anemia, aortic stenosis, aortic regurgitation, normal coronary, nonobstructive coronary artery disease, large wound in the back. PLAN: The patient received blood transfusion yesterday as per hematology/oncology. We will continue carvedilol 3.125 b.i.d. The patient on daptomycin IV q. 24 hour,gentamicin 200 mg IV q. 24 hour and digoxin 0.125 p.o. daily, piperacillin-tazobactam 3.375 gram IV q.6 hour. We will continue present therapy and we will follow. Driss Lawrence MD
[2017-06-11] MEDS: DAPTOmycin 600 MG in Sodium Chloride 0.9% 100 ML IV SCH (18:00)
--- NOTE | 2017-06-11 21:35 | PN ---
DATE: SUBJECTIVE: The patient is a 51-year-old male who is currently being treated on the transitional care unit for sepsis and Waldenstrom's macroglobulinemia. The patient, he has methicillin-resistant coagulase-negative staph infection. He has Pseudomonas and Acinetobacter infection. The patient has also been treated with depression, insomnia, chronic pain; I have noted bedside, his son, and mother. The patient apparently being discharged tomorrow to go to [facility]. The patient is quite disturbed, he is preoccupied with not getting adequate pain medication, although he is a local here and lucid. LABORATORY DATA: His white count is 1400, hemoglobin of 7.1, platelet count 37,000. The patient's metabolic profile today; his sodium 140, potassium 4.1, chloride 95, CO2 of 38, anion gap of 11, BUN 13, creatinine 0.7. Total bilirubin 1.4, albumin 3.1. I discussed with the patient and family the need for followup psychiatry care at nursing facility and need to be sure the patient is getting adequate pain medication while there. MEDICATIONS: His current medications include Ativan 0.5 mg at bedtime, Coreg, daptomycin, a Duragesic patch, gentamicin IV, Lanoxin p.r.n., IV morphine every 3 hours. He is on extended release morphine sulfate. He is on mirtazapine 22.5 mg at bedtime. He is on Zosyn IV. IMPRESSION: Depressive disorder secondary to pancytopenia, sepsis, he has Waldenstrom's macroglobulinemia. He is still quite depressed, not suicidal, but he also has discharging thoracic area wound. He is status post colostomy, has gait dysfunction, is deconditioned. PLAN: We would continue mirtazapine 22.5 mg at bedtime. Alton Guthrie MD
[2017-06-12] MEDS: Morphine 2 mg/ml ISec IVP PRN ×4 (02:53→16:11)
[2017-06-12] MEDS: Piperacillin/Tazobact 3.375 gm 100 ML IVPB SCH ×3 (05:23→13:35)
[2017-06-12 06:28] VITALS: BP 90/57; PULSE 96; TEMP 98.2
[2017-06-12] MEDS: Morphine 30 mg SR Tab PO SCH (09:50)
[2017-06-12] MEDS: Docusate-Senna 50 mg-8.6 mg Tab PO SCH (11:58)
--- NOTE | 2017-06-12 12:46 | PN ---
DATE: 06/12/2017 SUBJECTIVE: The patient is in bed, in no acute distress, nontoxic. PHYSICAL EXAMINATION: VITAL SIGNS: On exam, temperature is 98, blood pressure is 90/50, respiratory rate of 19, and heart rate of 93. HEENT: Unremarkable. NECK: Supple. LUNGS: Have decreased breath sounds. HEART: Normal S1 and S2. ABDOMEN: Soft and nontender. LABORATORY DATA: Laboratory examination reveals a white count of 1.4, hemoglobin of 7, platelets of 37. BUN of 13, creatinine of 0.7. Microbiology is noted. Review of orders reveals the patient to be on daptomycin, gentamicin and Zosyn. ASSESSMENT AND PLAN: This is a 51-year-old male; seen earlier in 12/04; chronically ill; endstage; with sepsis due to a thoracic soft tissue infection which is recurrent with methicillin-resistant Staphylococcus epidermidis, methicillin-resistant coagulase-negative Staphylococcus bacteremia and Pseudomonas, Acinetobacter; negative MRI for osteomyelitis; and leukopenia probably related to Waldenstrom macroglobulinemia; history of intraabdominal infections or colitis; history of acute sigmoid diverticulitis with abscess formation, status post resection and colostomy placement; Waldenstrom's macroglobulinemia, currently on chemotherapy; atrial fibrillation, on anticoagulation. The patient is on daptomycin. The Staphylococcus has an DYANA of 1 to vancomycin which is problematic for vancomycin and the Acinetobacter is resistant to Zosyn and meropenem. The 2D echo did not show any vegetations, and today is day #16 of daptomycin, the cultures were negative. Blood cultures are negative from the 7th. We would complete another 10 to 14 days of antibiotic therapy. Case discussed with the nursing staff. Anatoliy Luna MD
[2017-06-12] MEDS: Digoxin 125 mcg (0.125 mg) Tab PO SCH (14:11)
[2017-06-12 14:18] VITALS: PULSE 92
[2017-06-12] MEDS: DAPTOmycin 600 MG in Sodium Chloride 0.9% 100 ML IV SCH (15:02)
--- NOTE | 2017-06-12 15:47 | PN ---
DATE: 06/12/2017 LOCATION: The patient is in room 317, bed 1. REASON FOR CONSULTATION AND FOLLOWUP: Aortic stenosis, aortic regurgitation, multiple myeloma, neutropenia, and pancytopenia. SUBJECTIVE: The patient is lying flat in bed without any chest pain, shortness of breath, or palpitation. PHYSICAL EXAMINATION VITAL SIGNS: Blood pressure 90/57, respirations 18, pulse 96, and temperature 98.2. HEENT: Head is normocephalic. Eyes, pupils are normal. Conjunctivae pale. NECK: JVP low. Carotids are equal. Thorax, AP diameter normal. LUNGS: Clear. CARDIOVASCULAR: S1 and S2. Ejection systolic murmur grade 3/6. No rub. ABDOMEN: Soft. Bowel sounds are normal. EXTREMITIES: No clubbing. No cyanosis. LABORATORY DATA: WBC 1.4, hemoglobin 7.1, hematocrit 22.6, and platelets 37. Sodium 140, potassium 4.1, BUN 13, and creatinine 0.7. AST, ALT normal. Bilirubin 1.4, total protein 6.8 and albumin 3.1. DIAGNOSES: Multiple myeloma, chemotherapy, pancytopenia, neutropenia, thrombocytopenia, severe anemia, aortic stenosis, aortic regurgitation, normal coronaries, nonobstructive coronary artery disease, large wound in the back. PLAN: Plan is clinically cardiac status is stable and the patient is on Coreg 3.125 p.o. daily, daptomycin 600 mg IV q. 24 hours, gentamicin 200 mg IV q. 24 hours, digoxin 0.125 daily. The patient also on piperacillin/tazobactam 3.375 g IV q. 6 hours. We will continue present therapy. We will follow with you. Driss Lawrence MD
--- NOTE | 2017-06-13 09:53 | DS ---
The patient is a 51 years old, seen and examined, lying in bed, depressed, not in any acute distress. Scanty cough. PHYSICAL EXAMINATION: VITAL SIGNS: Afebrile, pulse 96, respirations 18, and blood pressure 90/57. LUNGS: Bilateral fair airflow, decreased at bases. HEART: S1 and S2 audible. ABDOMEN: Soft. Colostomy in place. NEUROLOGICAL: He is awake and alert. Able to communicate. EXTREMITIES: Bilateral leg, he has dry skin. He has thoracic paraspinal I and D that was done almost 2 weeks ago, still discharging thick yellowish pus. I had a long discussion with the family, Dr. Goldstein, oncologist in [facility] and with the family oncologist and ID. Since the patient is totally immunocompromized and he is going to need six weeks of antibiotics, PICC line was placed, the patient is being transferred to [place] today to complete his course of antibiotics and follow up wound care. ASSESSMENT: 1. Pancytopenia. 2. Waldenstrom macroglobulinemia. 3. History of atrial fibrillation. 4. Hypertension, but currently hypotensive. 5. Pancytopenia requiring multiple blood transfusions. PLAN: The patient is going to be sent to [place] where he will receive daptomycin. He will get Zosyn and gentamicin. Dr. Mas will follow up the patient. Pepito Gavin MD
--- NOTE | 2017-06-13 23:37 | CP.PCM.PN ---
Subjective - Date & Time of Evaluation Date of Evaluation: 06/10/17 Time of Evaluation: 11:00 - Subjective Subjective: Comfortable in bed. pain on slightest movement. Bed bound. Cannot ambulate. No chest pain. On IV antibiotics as per ID. Objective - Vital Signs/Intake and Output Vital Signs (last 24 hours): Temp Pulse Resp BP Pulse Ox 98.2 F 96 H 18 90/57 L 97 06/12/17 06:00 06/12/17 09:45 06/12/17 06:00 06/12/17 09:45 06/12/17 06:00 - Labs Labs: 06/11/17 08:11 06/11/17 08:11 - Constitutional Appears: Chronically Ill - Head Exam Head Exam: ATRAUMATIC, NORMAL INSPECTION, NORMOCEPHALIC - Eye Exam Eye Exam: Normal appearance - ENT Exam ENT Exam: Mucous Membranes Moist - Neck Exam Neck Exam: Normal Inspection - Respiratory Exam Respiratory Exam: Clear to Ausculation Bilateral, NORMAL BREATHING PATTERN - Cardiovascular Exam Cardiovascular Exam: REGULAR RHYTHM, +S1, +S2 - GI/Abdominal Exam GI & Abdominal Exam: Soft, Normal Bowel Sounds - Extremities Exam Extremities Exam: Normal Inspection - Neurological Exam Neurological Exam: Alert, Awake, Oriented x3 - Psychiatric Exam Psychiatric exam: Flat Affect - Skin Skin Exam: Pallor Assessment and Plan - Assessment and Plan (Free Text) Assessment: 1. waldenstorm. 2. Pancytopenia 3. CHF 4. Bedbound. 5. Sepsis 6. Paraspinal abscess, drained. Plan : 1 unit of PRBC . Neupogen 300 mgcm one dose. pain controlled on current meds. On IV antibiotics as per ID. Sepsis resolved. does not ambulate. End stage waldenstorm macroglobulinemia. recurrent infections.
== END 2017-06-12 16:56 | DRG 871 ==
LOC: TRCU 19:34
PROVIDERS: ADMIT Internal Medicine Medical Oncology; ATTEND Internal Medicine
PROC: F07M6ZZ Therapeutic Exercise Treatment of Musculoskeletal System - Whole Body (ICD-10-PCS; principal; 2017-06-07)
DX: A41.02 Sepsis due to Methicillin resistant Staphylococcus aureus (principal); D61.810 Antineoplastic chemotherapy induced pancytopenia; I95.89 Other hypotension; C90.00 Multiple myeloma not having achieved remission; D70.9 Neutropenia, unspecified; I11.0 Hypertensive heart disease with heart failure; I42.9 Cardiomyopathy, unspecified; I50.9 Heart failure, unspecified; F33.9 Major depressive disorder, recurrent, unspecified; L02.212 Cutaneous abscess of back [any part, except buttock and flank]; I27.2 Other secondary pulmonary hypertension; E66.01 Morbid (severe) obesity due to excess calories; C88.0 Waldenstrom macroglobulinemia; B96.5 Pseudomonas (aeruginosa) (mallei) (pseudomallei) as the cause of diseases classified elsewhere; B96.89 Other specified bacterial agents as the cause of diseases classified elsewhere; G47.00 Insomnia, unspecified; G89.29 Other chronic pain; I25.10 Atherosclerotic heart disease of native coronary artery without angina pectoris; I35.0 Nonrheumatic aortic (valve) stenosis; I48.2 Chronic atrial fibrillation; J44.9 Chronic obstructive pulmonary disease, unspecified; I08.2 Rheumatic disorders of both aortic and tricuspid valves; T45.1X5A Adverse effect of antineoplastic and immunosuppressive drugs, initial encounter; Z74.01 Bed confinement status; Z80.42 Family history of malignant neoplasm of prostate; Z87.891 Personal history of nicotine dependence; Z90.49 Acquired absence of other specified parts of digestive tract; Z93.3 Colostomy status; Z98.0 Intestinal bypass and anastomosis status; Z99.81 Dependence on supplemental oxygen; Z68.30 Body mass index [BMI] 30.0-30.9, adult

== ENCOUNTER 2017-06-11 14:58 | Day surgery (SDC) | payer MEDICARE ==
[2017-06-06 14:42] VITALS: PULSE 99
[2017-06-11 15:11] VITALS: RESP 18; TEMP 98.2; O2SAT 100
[2017-06-11] MEDS ORDERED: Lidocaine 2% Inj (20ml) ONE (15:29)
[2017-06-11 16:47] VITALS: BMI 24.4
[2017-06-11 17:03] VITALS: BP 91/56; PULSE 85
--- NOTE | 2017-06-11 19:25 | VASCULAR ---
PROCEDURE: Ultrasound and fluoroscopically placed left upper extremity PICC line. HISTORY: Paraspinal abscess. Long-term IV antibiotics. Needs PICC line. PHYSICIAN(S): Hector Arvizu MD. TECHNIQUE: The relative risks and indications of the procedure were explained to the patient and consent obtained. The patient was placed supine on the arteriogram table and the left arm prepped and draped in the usual sterile fashion. A tourniquet was applied to the left axilla. 1% Xylocaine was used to anesthetize the skin and soft tissues at the puncture site above the elbow. The left basilic vein was punctured under direct ultrasound guidance with a micropuncture set. A 0.018 guidewire was advanced centrally and used to measure the length to the SVC/RA junction. A 5 Cymro single-lumen PICC line 46 cm long was advanced to the SVC/RA junction. The catheter was flushed and secured. The patient tolerated the procedure well. IMPRESSION: 1. Ultrasound and fluoroscopically placed left upper extremity PICC line. A 5 Cymro single-lumen PICC line 46 cm long was advanced to the SVC/RA junction.
== END 2017-06-11 17:31 ==
LOC: OPSURG 14:58
PROVIDERS: ATTEND Radiology Vascular & Interventional Radiology
DX: L02.212 Cutaneous abscess of back [any part, except buttock and flank] (principal); Z79.2 Long term (current) use of antibiotics
CPT/HCPCS: 36569; 76937; 77001; C1751; J1644

== ENCOUNTER 2017-07-09 11:18 | Emergency (ER) | payer MEDICARE, OTHER ==
[2017-07-09 11:18] VITALS: BMI 24.4
[2017-07-09 12:04] LABS: EOS % 1.1 % (1.5-5.0); GRAN # 0.62 (1.4-6.5); GRAN % 67.3 % (50.0-68.0); LYMPH # 0.2 (1.2-3.4); LYMPH % 20.7 % (22.0-35.0); MEAN CELL VOLUME 109.9 fl (80.0-105.0); MEAN CORPUSCULAR HEMOGLOBIN 34.6 pg (25.0-35.0); MEAN CORPUSCULAR HGB CONC 31.5 g/dl (31.0-37.0); MEAN PLATELET VOLUME 9.8 fl (7.0-11.0); MONO # 0.1 (0.1-0.6); MONO % 10.9 % (1.0-6.0); RED CELL DISTRIBUTION WIDTH 16.5 % (11.5-14.5)
--- NOTE | 2017-07-09 12:06 | ED PDOC ---
Arrival/HPI - General Historian: Patient - History of Present Illness Time/Duration: 24 hours Symptom Onset: Gradual Symptom Course: Improving, Intermittent Severity Level: Mild - General Chief Complaint: Abnormal Labs Time Seen by Provider: 07/09/17 11:42 - History of Present Illness Narrative History of Present Illness (Text): 07/09/17 12:03 52M w/PMH sig for chronic anemia requiring multiple transfusions, Waldenstrom agammaglobulinemia evaluated for severe anemia. Pt saw PMD yesterday, was called today to come to hospital for blood transfusion due to Hgb of 5.6 yesterday. Pt reports he had a short period of dizziness yesterday with PT- attributes it to recent lack of sitting up. Denies N & V, F & C, chest pain, ab pain, SOB, palpitations, headache, vision changes, other complaints. PMH: Waldenstrom agammaglobulinemia, pancytopenia, chronic anemia requiring multiple transfusions, s/p colostomy, COPD, Afib, depression PSH: Colostomy All: NKDA SH: Denies tobacco, ETOH or illicit drug use PMD: Perveen (Brisa Pitts) Associated Symptoms (Text): 07/09/17 12:05 Dizziness (Brisa Pitts) Past Medical History - Provider Review Nursing Documentation Reviewed: Yes - Infectious Disease Hx of Infectious Diseases: None - Cardiac Hx Cardiac Disorders: Yes Hx Congestive Heart Failure: Yes Hx Hypertension: Yes - Pulmonary Hx Chronic Obstructive Pulmonary Disease (COPD): Yes - Neurological Hx Transient Ischemic Attacks (TIA): No - HEENT Hx HEENT Disorder: No Hx Blind: No Hx Cataracts: No Hx Deafness: No Hx Difficulty Chewing: No Hx Epistaxis: No Hx Glaucoma: No Hx Macular Degeneration: No - Renal Hx Renal Failure: No - Endocrine/Metabolic Hx Diabetes Mellitus Type 1: No Hx Diabetes Mellitus Type 2: No - Hematological/Oncological Hx Cancer: Yes (Blood Cancer as per patient) Hx Chemotherapy: Yes - Integumentary Hx Dermatological Disorder: No Hx Basal Cell Carcinoma: No Hx Eczema: No Hx Melanoma: No Hx Psoriasis: No Hx Squamous Cell Carcinoma: No - Musculoskeletal/Rheumatological Hx Falls: Yes (past) - Gastrointestinal Hx Gastrointestinal Disorders: (colostomy) - Genitourinary/Gynecological Hx Reproductive Disorders: No - Psychiatric Hx Emotional Abuse: No Hx Physical Abuse: No Hx Substance Use: No - Surgical History Other/Comment: spinal cyst removal - Anesthesia Hx Anesthesia: Yes Hx Anesthesia Reactions: No Hx Malignant Hyperthermia: No - Suicidal Assessment Feels Threatened In Home Enviroment: No Family/Social History - Physician Review Nursing Documentation Reviewed: Yes Family/Social History: No Known Family HX Smoking Status: Never Smoked Hx Alcohol Use: No Hx Substance Use: No Allergies/Home Meds Allergies/Adverse Reactions: Allergies No Known Allergies Allergy (Verified 05/25/17 15:49) Home Medications: Home Meds Medication Instructions Recorded Confirmed Carvedilol [Coreg] 3.125 mg PO DAILY 06/03/17 06/22/17 LORazepam [Ativan] 0.5 mg PO HS 06/03/17 06/22/17 Oxycodone HCl/Acetaminophen 2 tab PO Q4H PRN 06/22/17 06/22/17 [Oxycodone-Acetaminophen 5-325] Review of Systems - Physician Review All systems were reviewed & negative as marked: Yes - Review of Systems Constitutional: Normal. absent: Fevers Eyes: Normal. absent: Vision Changes ENT: Normal. absent: Sore Throat, Rhinorrhea Respiratory: Normal. absent: SOB, Cough Cardiovascular: Normal. absent: Chest Pain, Palpitations, Syncope Gastrointestinal: Normal. absent: Abdominal Pain, Constipation, Diarrhea, Nausea, Vomiting, Hematochezia, Hematemesis Genitourinary Male: Normal. absent: Hematuria Musculoskeletal: Back Pain (chronic). absent: Normal Skin: Other (Healing back wound s/p cyst excision). absent: Normal Neurological: Dizziness. absent: Normal, Headache Endocrine: Normal. absent: Diaphoresis Physical Exam Vital Signs Reviewed: Yes Temperature: Afebrile Blood Pressure: Normal Pulse: Tachycardic Respiratory Rate: Normal Appearance: Positive for: Non-Toxic, Comfortable Pain Distress: None Mental Status: Positive for: Alert and Oriented X 3 - Systems Exam Head: Present: Atraumatic, Normocephalic Extroacular Muscles: Present: EOMI Conjunctiva: Present: Normal Ears: Present: Normal Mouth: Present: Moist Mucous Membranes Nose (External): Present: Atraumatic Neck: Present: Normal Range of Motion Respiratory/Chest: Present: Clear to Auscultation, Good Air Exchange. No: Respiratory Distress, Accessory Muscle Use, Wheezes, Rhonchi Cardiovascular: Present: Normal S1, S2, Tachycardic. No: Murmurs Abdomen: Present: Normal Bowel Sounds, Ostomy Tubes (colostomy with pink, non erythematous stoma, scant amount of stool at opening). No: Tenderness, Distention, Peritoneal Signs, Rebound, Guarding, Hernias Upper Extremity: Present: Normal Inspection. No: Cyanosis, Edema Lower Extremity: Present: Other (legs externally rotated). No: Edema, Tenderness, Swelling Neurological: Present: GCS=15, CN II-XII Intact, Speech Normal Skin: Present: Warm, Dry, Pale. No: Rashes, Normal Color, Diaphoretic Psychiatric: Present: Alert, Oriented x 3, Normal Insight, Normal Concentration Vital Signs Temp Pulse Resp BP Pulse Ox 07/09/17 16:04 99.1 F 87 18 98/60 L 07/09/17 15:49 98.7 F 92 H 19 98/68 L 07/09/17 14:58 98.9 F 94 H 18 96/69 L 07/09/17 14:11 99.2 F 102 H 18 99/69 L 07/09/17 13:26 98.1 F 100 H 18 101/59 L 07/09/17 13:24 114 H 18 113/74 98 07/09/17 13:15 110 H 111/75 07/09/17 13:09 99.8 F H 104 H 18 111/55 L 07/09/17 11:29 98 F 105 H 20 107/70 100 Medical Decision Making ED Course and Treatment: Patient Seen With Resident: In agreement with resident note which contains more details about the patient. Patient was seen and evaluated with resident. Came up with plan and treatment together. (Maddie Camargo) 07/09/17 12:08 Pt seen/evaluated. Will order lab work and blood products, check cardiac function. Plan DW attending. 07/09/17 12:34 Ordered dizziness work up- pt refusing imaging (CXR, ab x-ray) due to back pain s/p cyst excision a month ago. 07/09/17 13:28 Left message with outpatient [place] [facility] office regarding ED visit and plan: Dr. Saravia at [facility]- . Asked for a call back. 07/09/17 16:20 Pt doing well after 1st unit of blood. No complaints. (Brisa Pitts) - Lab Interpretations Lab Results: 07/09/17 12:00 07/09/17 12:00 Lab Results 07/09/17 12:25: Stool Occult Blood Negative 07/09/17 12:00: Blood Type A NEGATIVE, Antibody Screen Negative, Crossmatch See Detail, BBK History Checked Patient has bt 07/09/17 12:00: Sodium 140, Potassium 3.7, Chloride 97 L, Carbon Dioxide 37 H, Anion Gap 10, BUN 20, Creatinine 0.9, Est GFR ( Amer) > 60, Est GFR (Non- Af Amer) > 60, Random Glucose 99, Calcium 8.7, Total Bilirubin 1.2, AST 29, ALT 33, Alkaline Phosphatase 72, Lactate Dehydrogenase 380, Total Creatine Kinase < 20 L, Troponin I < 0.01, Total Protein 7.2, Albumin 3.3, Globulin 3.9, Albumin/ Globulin Ratio 0.8 L 07/09/17 12:00: WBC 0.9 L*, RBC 1.82 L, Hgb 6.3 L*, Hct 20.0 L*, MCV 109.9 H, MCH 34.6, MCHC 31.5, RDW 16.5 H, Plt Count 46 L*, MPV 9.8, Gran % 67.3, Lymph % (Auto) 20.7 L, Duval % (Auto) 10.9 H, Eos % (Auto) 1.1 L, Baso % (Auto) 0.0, Gran # 0.62 L, Lymph # 0.2 L, Duval # 0.1, Eos # 0.0, Baso # 0.00 - Medication Orders Current Medication Orders: Acetaminophen (Tylenol 325mg Tab) 650 mg PO Q6H PRN PRN Reason: temp > or = 101 Carvedilol (Coreg) 3.125 mg PO DAILY [facility] Last Admin: 07/09/17 13:15 Dose: 3.125 mg MAR Pulse and Blood Pressure Document 07/09/17 13:15 SE (Rec: 07/09/17 13:15 [id number][place] Pulse Pulse Rate (60-90) 110 Blood Pressure Blood Pressure (100/60-150/90) 111/75 Digoxin (Lanoxin) 0.125 mg PO 1400 [facility] Last Admin: 07/09/17 15:02 Dose: 0.125 mg MAR Apical Pulse Rate Document 07/09/17 15:02 SE (Rec: 07/09/17 15:02 [id number]) Apical Pulse Rate Apical Pulse Rate (60-90 beats/min) 102 Lorazepam (Ativan) 0.5 mg PO HS LUZ PRN Reason: Protocol Mirtazapine (Remeron) 22.5 mg PO HS LUZ Oxycodone/Acetaminophen (Percocet 5/325 Mg Tab) 2 tab PO Q4H PRN PRN Reason: Pain, moderate (4-7) Stop: 07/12/17 12:35 Senna/Docusate Sodium (Senokot S 50 Mg-8.6 Mg) 1 tab PO DAILY LUZ Discontinued Medications Fentanyl (Duragesic) 1 patch TD Q72H LUZ Fentanyl (Duragesic) 1 patch TD Q72H STA Stop: 07/09/17 12:37 Last Admin: 07/09/17 13:01 Dose: Disposition/Present on Arrival - Present on Arrival Any Indicators Present on Arrival: No History of DVT/PE: No History of Uncontrolled Diabetes: No Urinary Catheter: No History of Decub. Ulcer: No History Surgical Site Infection Following: None - Disposition Have Diagnosis and Disposition been Completed?: Yes Disposition Time: 17:56 Patient Plan: Discharge - Disposition Diagnosis: Anemia Disposition: HOME/ ROUTINE Patient Problems: Current Active Problems Problem Status Onset Anemia Acute Condition: STABLE Discharge Instructions (ExitCare): Blood Transfusion Reactions (ED), Anemia (ED ), Thrombocytopenia (ED) Additional Instructions: Please follow up with your primary care provider within 1 week after discharge from the ED. As discussed, please make an appointment to call your mangle tender cloth , Dr. Saravia, to follow up. If you have a recurrence of low hemoglobin, please come back to the Emergency department. Thank you for visiting the [facility]. Referrals: Pepito Gavin MD [Staff Provider] - Follow up with primary Forms: Pic[employer] (Italian)
[2017-07-09 12:13] LABS: WHITE BLOOD COUNT 0.9 10^3/ul (4.5-11.0)
[2017-07-09 12:14] LABS: ALB/GLOB RATIO 0.8 (1.1-1.8); ALKALINE PHOSPHATASE 72 U/L (38-126); ALT/SGPT 33 U/L (7-56); AST/SGOT 29 U/L (17-59); BILIRUBIN,TOTAL 1.2 mg/dL (0.2-1.3); BLOOD UREA NITROGEN 20 mg/dL (7-21); CALCIUM 8.7 mg/dL (8.4-10.5); CARBON DIOXIDE 37 mmol/L (21-33); CHLORIDE 97 mmol/L (98-107); GFR AFRICAN-AMERICAN > 60; GLUCOSE,RANDOM 99 mg/dL (70-110); POTASSIUM 3.7 mmol/L (3.6-5.0); SODIUM 140 mmol/L (132-148); TOTAL PROTEIN 7.2 g/dL (5.8-8.3)
[2017-07-09 12:26] LABS: TROPONIN I < 0.01 ng/mL
[2017-07-09] MEDS ORDERED: Oxycodone/Acetaminophen 5/325 mg Tab PO PRN (12:34)
[2017-07-09 13:25] VITALS: O2SAT 98
[2017-07-09] MEDS ORDERED: Digoxin 125 mcg (0.125 mg) Tab PO SCH (14:00)
[2017-07-09 15:02] VITALS: PULSE 102
[2017-07-09 18:06] VITALS: BP 106/57; PULSE 80; RESP 100; TEMP 98.6
--- NOTE | 2017-07-09 22:45 | CARD ---
APPROVED REPORT EKG Measurement Heart [id number] <Conclusion> Atrial fibrillation with rapid ventricular response with premature ventricular or aberrantly conducted complexes Abnormal ECG
--- NOTE | 2017-07-09 22:57 | HP ---
HISTORY OF PRESENT ILLNESS: The patient is 52-year-old known to me from multiple previous admissions. He got blood work done yesterday by house-call. I got call this morning that his hemoglobin is 5.6 and his white count is 0.9. I called the patient. We consulted his oncologist who recommended him to come to emergency room. The patient does complain of having generalized weakness. No fever or chills. No nausea or vomiting. He does have deep back wound that is being cared at home and he states that seems to be doing well with less discharge. He has significant past medical history of thoracic paraspinal abscess that was I and D'ed a month or so ago, received 4 weeks of antibiotics. He is under care of Dr. Goldstein in [facility] and he sees them intermittently. PAST MEDICAL HISTORY: Also significant for: 1. Waldenstrom macroglobulinemia. 2. History of hypertension, but currently stable. 3. History of AFib. 4. Pancytopenia. 5. Chronic bilateral leg edema. 6. History of depression. 7. History of COPD. ALLERGIES: NOT ALLERGIC TO ANY MEDICATIONS. MEDICATIONS AT HOME: He is on Duragesic patch. He is on Coumadin 5 mg daily and he is on Percocet as needed. He is on Remeron, Ativan as needed. SOCIAL HISTORY: He lives at home. Son is caring for him. He has no history of smoking or drinking. REVIEW OF SYSTEMS: Significant for generalized weakness, decreased appetite and feels depressed. PHYSICAL EXAMINATION: GENERAL: He looks pale. VITAL SIGNS: He is afebrile, pulse 105, respirations 20, blood pressure 107/70. LUNGS: Bilateral fair airflow. No rhonchi or crackle. HEART: S1 and S2, audible. ABDOMEN: Soft, obese. Colostomy in place, draining brownish stool, but no bleeding. EXTREMITIES: Bilateral legs have scaly dry skin. He has wound in his middle thoracic area that is draining yellowish pus. LABORATORY DATA: WBC 0.9, hemoglobin 6.3, hematocrit 20 and platelets of 46. Chemistry; sodium 140, potassium 3.7, chloride 97, CO2 of 37, BUN 20, creatinine 0.9, and blood sugar of 99. LFTs are within normal limits. ASSESSMENT: 1. Symptomatic anemia. 2. Waldenstrom macroglobulinemia. 3. Pancytopenia. 4. History of hypertension. 5. Atrial fibrillation. 6. Thoracic area draining abscess. 7. Deconditioning and difficulty walking. PLAN: The patient will receive 2 packs of RBCs. We will give him a dose of Neupogen. I will request Dr. Td Mas to evaluate his wound. I will restart his usual medications. We will follow up in a.m. Pepito Gavin MD
[2017-07-10] MEDS ORDERED: Docusate-Senna 50 mg-8.6 mg Tab PO SCH (10:00)
== END 2017-07-09 19:23 | disposition home or self-care (01) ==
LOC: ED 11:18
DX: D64.9 Anemia, unspecified (principal); I11.0 Hypertensive heart disease with heart failure; I50.9 Heart failure, unspecified; Z93.3 Colostomy status
CPT/HCPCS: 36430; 80053; 82550; 83615; 84484; 85025; 86850; 86900; 86920; 93005; 96372; 99283; G0328; J1447; P9016

== ENCOUNTER 2017-08-02 11:38 | Inpatient (IN) | payer MEDICARE, OTHER ==
[2017-08-02 11:39] VITALS: BMI 24.4
[2017-08-02] MEDS ORDERED: Oxycodone/Acetaminophen 5/325 mg Tab PO STA (12:01)
--- NOTE | 2017-08-02 12:02 | ED PDOC ---
Arrival/HPI - General Chief Complaint: Abnormal Skin Integrity Time Seen by Provider: 08/02/17 11:52 Historian: Patient - History of Present Illness Narrative History of Present Illness (Text): 08/02/17 12:01 A 52 year old male, whose past medical history includes hypertension, atrial fibrillation, CHF, COPD, colostomy bag, Waldenstrom agammaglobulinemia and bed bound, presents to the emergency department complaining of a draining wound on his upper back for the past 3 days. Patient reports he had an incision and removal of a cyst performed by approximately 2 months ago. Patients home builder nurse noted blood drainage from the wound causing him to come in for further evaluation. Patient notes a low grade of 99 but denies any chills, nausea, vomiting, abdominal pain, chest pain, shortness of breath, cough or any other complaints. PMD: Dr. Gavin Surgeon: Dr. Mas Time/Duration: Other (3 days) Symptom Course: Unchanged Quality: Other Context: Home Past Medical History - Provider Review Nursing Documentation Reviewed: Yes - Infectious Disease Hx of Infectious Diseases: None - Cardiac Hx Cardiac Disorders: Yes Hx Congestive Heart Failure: Yes Hx Hypertension: Yes - Pulmonary Hx Respiratory Disorders: Yes Hx Chronic Obstructive Pulmonary Disease (COPD): Yes - Neurological Hx Neurological Disorder: No Hx Transient Ischemic Attacks (TIA): No - HEENT Hx HEENT Disorder: No Hx Blind: No Hx Cataracts: No Hx Deafness: No Hx Difficulty Chewing: No Hx Epistaxis: No Hx Glaucoma: No Hx Macular Degeneration: No - Renal Hx Renal Disorder: No Hx Renal Failure: No - Endocrine/Metabolic Hx Endocrine Disorders: No Hx Diabetes Mellitus Type 1: No Hx Diabetes Mellitus Type 2: No - Hematological/Oncological Hx Blood Disorders: Yes Hx Cancer: Yes (Blood Cancer as per patient) Hx Chemotherapy: Yes - Integumentary Hx Dermatological Disorder: Yes Hx Basal Cell Carcinoma: No Hx Eczema: No Hx Melanoma: No Hx Psoriasis: No Hx Squamous Cell Carcinoma: No Other/Comment: cyst removed from back - Musculoskeletal/Rheumatological Hx Musculoskeletal Disorders: Yes Hx Falls: Yes (past) - Gastrointestinal Hx Gastrointestinal Disorders: Yes (colostomy) Hx Colostomy: Yes - Genitourinary/Gynecological Hx Genitourinary Disorders: No Hx Reproductive Disorders: No - Psychiatric Hx Psychophysiologic Disorder: No Hx Emotional Abuse: No Hx Physical Abuse: No Hx Substance Use: No - Surgical History Other/Comment: Colostomy, cyst removed from back - Anesthesia Hx Anesthesia: Yes Hx Anesthesia Reactions: No Hx Malignant Hyperthermia: No - Suicidal Assessment Feels Threatened In Home Enviroment: No Family/Social History - Physician Review Nursing Documentation Reviewed: Yes Family/Social History: No Known Family HX Smoking Status: Never Smoked Hx Alcohol Use: No Hx Substance Use: No Allergies/Home Meds Allergies/Adverse Reactions: Allergies No Known Allergies Allergy (Verified 07/19/17 08:54) Home Medications: Home Meds Medication Instructions Recorded Confirmed Carvedilol [Coreg] 3.125 mg PO DAILY 06/03/17 07/19/17 LORazepam [Ativan] 0.5 mg PO HS 06/03/17 07/19/17 Oxycodone HCl/Acetaminophen 2 tab PO Q4H PRN 06/22/17 07/19/17 [Oxycodone-Acetaminophen 5-325] Review of Systems - Physician Review All systems were reviewed & negative as marked: Yes - Review of Systems Constitutional: Fevers (subjective). absent: Night Sweats Respiratory: absent: SOB Cardiovascular: absent: Chest Pain Gastrointestinal: absent: Abdominal Pain, Constipation, Diarrhea, Nausea, Vomiting Skin: Other (draining wound) Physical Exam Vital Signs Reviewed: Yes Vital Signs Temp Pulse Resp BP Pulse Ox 08/02/17 11:59 99.0 F 130 H 20 84/50 L 100 Temperature: Afebrile Blood Pressure: Hypotensive Pulse: Tachycardic Respiratory Rate: Normal Appearance: Positive for: Non-Toxic, Cachectic Pain Distress: None Mental Status: Positive for: Alert and Oriented X 3 - Systems Exam Head: Present: Atraumatic, Normocephalic Pupils: Present: PERRL Extroacular Muscles: Present: EOMI Conjunctiva: Present: Normal Mouth: Present: Moist Mucous Membranes Respiratory/Chest: Present: Clear to Auscultation, Good Air Exchange. No: Respiratory Distress, Accessory Muscle Use Cardiovascular: Present: Tachycardic Abdomen: Present: Normal Bowel Sounds, Other (colostomy bag in place). No: Tenderness, Distention, Peritoneal Signs Neurological: Present: GCS=15, CN II-XII Intact, Speech Normal Skin: Present: Warm, Dry, Other (6 cm circular wound on upper thoracic back with clean edges and no surrounding erythema or active bleeding. Packing in place). No: Rashes Psychiatric: Present: Alert, Oriented x 3, Normal Insight, Normal Concentration Medical Decision Making ED Course and Treatment: 08/02/17 12:01 Impression: A 52 year old male with draining wound on upper back. Plan: -- Percocet -- Reassess and disposition Prior Visits: Notes and results from previous visits were reviewed. Patient had an incision and drainage procedure performed on 05/13/17 for an abscess on his upper back. Progress Notes: Case discussed with Dr. Mas, states residential sales consultant will come evaluate patient at bedside. Patient evaluated by residential sales consultant, requesting medical admission with surgery on consult for further evaluation of wound, likely requiring wound vac/. Case discussed with Dr. Gavin, who is aware of and in agreement with plan. Requests surgery, I&D and cardiac consults. Patient has chronic anemia and type and cross with 2 units RRBCS ordered. 08/02/17 13:33 - Medication Orders Current Medication Orders: Discontinued Medications Sodium Chloride (Sodium Chloride 0.9%) 500 mls @ 999 mls/hr IV .Q31M STA Stop: 08/02/17 13:17 Last Admin: 08/02/17 13:19 Dose: 999 mls/hr eMAR Start Stop Document 08/02/17 13:19 OCS (Rec: 08/02/17 13:19 [id number]) Intravenous Solution Start Date 08/02/17 Start Time 13:14 End Date 08/02/17 End time 13:44 Total Infusion Time 30 Morphine Sulfate (Morphine) 4 mg IVP STAT STA Stop: 08/02/17 12:48 Last Admin: 08/02/17 13:15 Dose: 4 mg MAR Pain Assessment Document 08/02/17 13:15 OCS (Rec: 08/02/17 13:19 [id number]) Pain Reassessment Is this a pain reassessment? No Sleep Is patient sleeping during reassessment? No Presence of Pain Presence of Pain Yes Pain Scale Used Pain Scale Used Numeric Location Upper or Lower Upper Pain Location Body Site Back Description Description Constant Pain Behavior Irritability Alleviating Factors/Management Medication Techniques IVP Administration Document 08/02/17 13:15 OCS (Rec: 08/02/17 13:19 [id number]) Charges for Administration # of IVP Administrations 1 Oxycodone/Acetaminophen (Percocet 5/325 Mg Tab) 1 tab PO STAT STA Stop: 08/02/17 12:02 Last Admin: 08/02/17 12:20 Dose: 1 tab MAR Pain Assessment Document 08/02/17 12:20 OCS (Rec: 08/02/17 12:21 [id number]) Pain Reassessment Is this a pain reassessment? Yes Sleep Is patient sleeping during reassessment? No Presence of Pain Presence of Pain Yes Pain Scale Used Pain Scale Used Numeric Location Upper or Lower Lower Pain Location Body Site Back Description Description Constant Intensity of Pain at present 10 Pain Behavior Irritability - Scribe Statement The provider has reviewed the documentation as recorded by the Maryibbell Macedo Provider Scribe Attestation: All medical record entries made by the Scribe were at my direction and personally dictated by me. I have reviewed the chart and agree that the record accurately reflects my personal performance of the history, physical exam, medical decision making, and the department course for this patient. I have also personally directed, reviewed, and agree with the discharge instructions and disposition. Disposition/Present on Arrival - Present on Arrival Any Indicators Present on Arrival: No History of DVT/PE: No History of Uncontrolled Diabetes: No Urinary Catheter: No History of Decub. Ulcer: No History Surgical Site Infection Following: None - Disposition Have Diagnosis and Disposition been Completed?: Yes Diagnosis: Open back wound Disposition: HOSPITALIZED Disposition Time: 13:34 Patient Plan: Admission Patient Problems: Current Active Problems Problem Status Onset Open back wound Acute Condition: FAIR
[2017-08-02] MEDS ORDERED: Morphine 4 mg/ml ISec IVP STA ×2 (12:47→17:08)
[2017-08-02] MEDS ORDERED: Sodium Chloride 0.9% 500 ML IV STA (12:47)
[2017-08-02 13:22] LABS: GRAN # 0.64 (1.4-6.5); GRAN % 66.7 % (50.0-68.0); LYMPH # 0.2 (1.2-3.4); LYMPH % 17.7 % (22.0-35.0); MEAN CELL VOLUME 104.7 fl (80.0-105.0); MEAN CORPUSCULAR HEMOGLOBIN 33.5 pg (25.0-35.0); MEAN PLATELET VOLUME 10.4 fl (7.0-11.0); MONO # 0.2 (0.1-0.6); MONO % 15.6 % (1.0-6.0); RED CELL DISTRIBUTION WIDTH 18.2 % (11.5-14.5)
[2017-08-02 13:23] LABS: HEMATOCRIT 17.8 % (42.0-52.0)
[2017-08-02 13:32] LABS: ALB/GLOB RATIO 0.7 (1.1-1.8); ALKALINE PHOSPHATASE 71 U/L (38-126); ALT/SGPT 20 U/L (7-56); AST/SGOT 17 U/L (17-59); BILIRUBIN,TOTAL 1.7 mg/dL (0.2-1.3); BLOOD UREA NITROGEN 22 mg/dL (7-21); CALCIUM 9.1 mg/dL (8.4-10.5); CARBON DIOXIDE 33 mmol/L (21-33); CHLORIDE 96 mmol/L (98-107); GFR AFRICAN-AMERICAN > 60; GLUCOSE,RANDOM 105 mg/dL (70-110); POTASSIUM 4.2 mmol/L (3.6-5.0); SODIUM 136 mmol/L (132-148); TOTAL PROTEIN 8.1 g/dL (5.8-8.3)
[2017-08-02 13:41] LABS: INR 1.37 (0.93-1.08); PARTIAL THROMBOPLASTIN TIME 35.6 Seconds (25.1-36.5)
--- NOTE | 2017-08-02 16:07 | CP.PCM.CON ---
History of Present Illness - History of Present Illness History of Present Illness: General Surgery - Dr. Mas 52yo M w/ hx of Waldenstrom Macroglobulinemia, AFib, CAD, chronic back pain/bed bound, paraspinal abscess s/p I&D in , presenting to ED with complaint of increased drainage from the paraspinal wound. He states that the wound has been care for by home nurse with daily dressing changes, no packing. Pt complains of persistent/unchanged chronic back pain and increased drainage from the site. He admits to subjective Fever and diaphoresis. Denies any Nausea/ Vomiting, Abdominal pain, Chest pain, Diarrhea, Hematochezia. PMH: Waldenstrom Macroglobulinemia, Afib, CAD, Diverticulitis, Spinal Fxs PSH: Nneka's procedure for perforated diverticulitis in 2014, I&D of back abscess 05/2017 Former tobacco use, no Alcohol or illicit drugs Meds as per chart NKDA In the ED pt was found to be diaphoretic, tachycardic in the 160s, BP 80/63, RR and O2 sats WNL. Discussed with ER attending who agrees with admission to medical service with surgery on consult for wound care. Review of Systems - Review of Systems All systems: reviewed and no additional remarkable complaints except (as per HPI ) Past Patient History - Infectious Disease Hx of Infectious Diseases: None - Past Social History Smoking Status: Never Smoked - CARDIAC Hx Cardiac Disorders: Yes Hx Congestive Heart Failure: Yes Hx Hypertension: Yes - PULMONARY Hx Respiratory Disorders: Yes Hx Chronic Obstructive Pulmonary Disease (COPD): Yes - NEUROLOGICAL Hx Neurological Disorder: No Hx Transient Ischemic Attacks (TIA): No - HEENT Hx HEENT Problems: No Hx Blind: No Hx Cataracts: No Hx Deafness: No Hx Difficulty Chewing: No Hx Epistaxis: No Hx Glaucoma: No Hx Macular Degeneration: No - RENAL Hx Chronic Kidney Disease: No Hx Renal Failure: No - ENDOCRINE/METABOLIC Hx Endocrine Disorders: No Hx Diabetes Mellitus Type 1: No Hx Diabetes Mellitus Type 2: No - HEMATOLOGICAL/ONCOLOGICAL Hx Blood Disorders: Yes Hx Cancer: Yes (Blood Cancer as per patient) Hx Chemotherapy: Yes - INTEGUMENTARY Hx Dermatological Problems: Yes Hx Basil Cell: No Hx Eczema: No Hx Melanoma: No Hx Psoriasis: No Hx Squamous Cell: No Other/Comment: cyst removed from back - MUSCULOSKELETAL/RHEUMATOLOGICAL Hx Musculoskeletal Disorders: Yes Hx Falls: Yes (past) - GASTROINTESTINAL Hx Gastrointestinal Disorders: Yes (colostomy) Hx Colostomy: Yes - GENITOURINARY/GYNECOLOGICAL Hx Genitourinary Disorders: No Hx Reproductive Disorders: No - PSYCHIATRIC Hx Psychophysiologic Disorder: No Hx Emotional Abuse: No Hx Physical Abuse: No Hx Substance Use: No - SURGICAL HISTORY Other/Comment: Colostomy, cyst removed from back - ANESTHESIA Hx Anesthesia: Yes Hx Anesthesia Reactions: No Hx Malignant Hyperthermia: No Meds Allergies/Adverse Reactions: Allergies Allergy/AdvReac Type Severity Reaction Status Date / Time No Known Allergies Allergy Verified 08/02/17 14:14 Physical Exam - Constitutional Appears: Toxic, No Acute Distress, Chronically Ill - Head Exam Head Exam: ATRAUMATIC, NORMOCEPHALIC - Eye Exam Eye Exam: Normal appearance - ENT Exam ENT Exam: Mucous Membranes Dry - Respiratory Exam Respiratory Exam: NORMAL BREATHING PATTERN. absent: Respiratory Distress - Cardiovascular Exam Cardiovascular Exam: Tachycardia - Back Exam Additional comments: approx [id number] open wound in the Left upper back, midline, w exposed spinous process and sanguinous drainage from the site, no induration, crepitus or fluctuance appreciated. Old iodoform packing was removed. Cultures taken and dry sterile dressing applied - Neurological Exam Neurological exam: Alert, Oriented x3 - Skin Skin Exam: Diaphoretic, Dry, Intact, Pallor Results - Vital Signs Recent Vital Signs: Last Vital Signs Temp 98.4 F 08/02/17 15:36 Pulse 141 H 08/02/17 15:36 Resp 18 08/02/17 15:36 BP 75/49 L 08/02/17 15:36 Pulse Ox 100 08/02/17 15:20 - Labs Result Diagrams: 08/02/17 13:15 08/02/17 13:15 Labs: Laboratory Results - last 24 hr 08/02/17 08/02/17 08/02/17 13:15 13:15 13:15 WBC 1.0 L* RBC 1.70 L Hgb 5.7 L* Hct 17.8 L* MCV 104.7 MCH 33.5 MCHC 32.0 RDW 18.2 H Plt Count 33 L* MPV 10.4 Gran % 66.7 Lymph % (Auto) 17.7 L [place] % (Auto) 15.6 H Eos % (Auto) 0.0 L Baso % (Auto) 0.0 Gran # 0.64 L Lymph # 0.2 L [place] # 0.2 Eos # 0.0 Baso # 0.00 PT 15.2 H INR 1.37 H APTT 35.6 Sodium 136 Potassium 4.2 Chloride 96 L Carbon Dioxide 33 Anion Gap 11 BUN 22 H Creatinine 0.7 L Est GFR ( Amer) > 60 Est GFR (Non-Af Amer) > 60 Random Glucose 105 Calcium 9.1 Total Bilirubin 1.7 H AST 17 D ALT 20 Alkaline Phosphatase 71 Total Protein 8.1 Albumin 3.3 Globulin 4.8 Albumin/Globulin Ratio 0.7 L Blood Type Antibody Screen Crossmatch BBK History Checked 08/02/17 13:30 WBC RBC Hgb Hct MCV MCH MCHC RDW Plt Count MPV Gran % Lymph % (Auto) [place] % (Auto) Eos % (Auto) Baso % (Auto) Gran # Lymph # [place] # Eos # Baso # PT INR APTT Sodium Potassium Chloride Carbon Dioxide Anion Gap BUN Creatinine Est GFR ( Amer) Est GFR (Non-Af Amer) Random Glucose Calcium Total Bilirubin AST ALT Alkaline Phosphatase Total Protein Albumin Globulin Albumin/Globulin Ratio Blood Type A NEGATIVE Antibody Screen Negative Crossmatch See Detail BBK History Checked Patient has bt Assessment & Plan - Assessment and Plan (Free Text) Assessment: 52 yo M w/ Waldenstrom Macroglobulinemia, w/ non-healing wound in the upper back s/p I&D in 2016 -Admission to medical service -Will plan for wound vac placement -MRI to rule/out Osteomyelitis, however will need to plan to do this with medication as pt. has had difficulty with prior MRI and required sedation -Cont. Care as per Primary medical team DW Dr. Chace Mccormack PGY3
[2017-08-02] MEDS ORDERED: Digoxin 500 mcg/2ml (0.5 mg/2ml) Inj IVP ONE (18:04)
[2017-08-02] MEDS: Oxycodone/Acetaminophen 10/325 mg Tab PO PRN (21:11)
[2017-08-02] MEDS ORDERED: Meropenem 1 GM in Dextrose 5% In Water 100 ML IVPB SCH (22:00)
--- NOTE | 2017-08-03 00:17 | HP ---
HISTORY OF PRESENT ILLNESS: The patient is a 52-year-old male who came to the Emergency Room because of worsening wound on his back. The patient states he saw more discharge coming out of his wound. No history of fever or chills. He complained of generalized weakness. The patient is bed bound and is not ambulatory. He complains of chronic back pain. The patient had spinal abscess almost 2 months ago. He had incision and drainage done. He was given antibiotics for 6 weeks. He was in [facility]. He completed the course. He came back. His wounds started to heal, but again he noticed that it is started to drain again. He denies any nausea or vomiting. No abdominal pain. No chest pain. No shortness of breath. PAST MEDICAL HISTORY: Significant for Waldenstrom macroglobulinemia, chronic atrial fibrillation, coronary artery disease, history of diverticulosis and diverticular abscess resulting into colostomy, and spinal fracture. PAST SURGICAL HISTORY: Significant for Nneka's procedure for perforated diverticulum. SOCIAL HISTORY: History of smoking in the past. No drug or alcohol use. ALLERGIES: HE IS NOT ALLERGIC TO ANY MEDICATION. MEDICATIONS AT HOME: He is on digoxin 0.125, Percocet 2 tablets q. 4 hours., Remeron 20 mg at bedtime, and Coreg 3.125 twice a day. REVIEW OF SYSTEMS: Generalized weakness, difficulty walking, chronic back pain, and discharging wound. PHYSICAL EXAMINATION: GENERAL: The patient looks pale, exhausted, complained of back pain. VITAL SIGNS: He is afebrile, pulse is 127, respirations are 19, and blood pressure is 80/53. LUNGS: Bilateral fair airflow. No rhonchi or crackles. HEART: S1 and S2 audible. ABDOMEN: Soft. Colostomy in place. NEUROLOGIC: He is awake and alert. Moves all extremities. Has generalized weakness. EXTREMITIES: Bilateral legs, he has dry scaly skin. LABORATORY EXAM: WBC is 1.0, hemoglobin is 5.7, hematocrit is 17.8, and platelets of 33. PT is 15.2 and INR is 1.37. Chemistry: Sodium of 136, potassium of 4.2, chloride of 96, CO2 of 33, BUN of 22, creatinine of 0.7, and blood sugar of 105. Total bilirubin is 1.7. ASSESSMENT AND PLAN: 1. Thoracic paraspinal draining wound, rule out osteomyelitis. 2. Waldenstrom hypogammaglobulinemia. 3. Pancytopenia. 4. Chronic atrial fibrillation. 5. Hypotension. 6. Generalized weakness. PLAN: The patient will be given 2 blood transfusions. We will give him Neupogen and start him on IV antibiotic. Other consultants including Dr. Ward for Hematology, Dr. Contreras for Cardiology, Dr. Luna for ID, and Dr. Mas for wound care has been consulted. Pepito Gavin MD
[2017-08-03] MEDS: Oxycodone/Acetaminophen 10/325 mg Tab PO PRN (03:07)
[2017-08-03] MEDS ORDERED: Morphine 4 mg/ml ISec IVP PRN (07:08)
[2017-08-03 07:20] LABS: GRAN # 0.52 (1.4-6.5); GRAN % 65.8 % (50.0-68.0); LYMPH # 0.2 (1.2-3.4); LYMPH % 24.1 % (22.0-35.0); MEAN CELL VOLUME 101.2 fl (80.0-105.0); MEAN CORPUSCULAR HEMOGLOBIN 32.4 pg (25.0-35.0); MEAN PLATELET VOLUME 10.1 fl (7.0-11.0); MONO # 0.1 (0.1-0.6); MONO % 10.1 % (1.0-6.0)
[2017-08-03 07:40] LABS: ALB/GLOB RATIO 0.7 (1.1-1.8); ALKALINE PHOSPHATASE 64 U/L (38-126); ALT/SGPT 20 U/L (7-56); AST/SGOT 17 U/L (17-59); BLOOD UREA NITROGEN 20 mg/dL (7-21); CALCIUM 8.7 mg/dL (8.4-10.5); CARBON DIOXIDE 33 mmol/L (21-33); CHLORIDE 97 mmol/L (98-107); GFR AFRICAN-AMERICAN > 60; GLUCOSE,RANDOM 108 mg/dL (70-110); POTASSIUM 3.6 mmol/L (3.6-5.0); SODIUM 137 mmol/L (132-148); TOTAL PROTEIN 7.5 g/dL (5.8-8.3)
[2017-08-03 07:44] LABS: HEMATOCRIT 17.5 % (42.0-52.0); WHITE BLOOD COUNT 0.8 10^3/ul (4.5-11.0)
[2017-08-03 07:56] LABS: RETIC% 2.03 % (0.5-1.5)
--- NOTE | 2017-08-03 08:01 | CON ---
DATE: 08/02/2017 REASON FOR CONSULTATION: AFib with rapid ventricular rate. BRIEF CLINICAL HISTORY: This is a 52-year-old male with past medical history significant for atrial fibrillation, chronic CHF, COPD status post colostomy, Waldenstrom macroglobulinemia with paraspinal abscess status post drainage 2 weeks ago and he presented to the retirement with complaint of back pain, recently more discharge from the wound. So, the patient came to the emergency department, found to be in AFib with rapid ventricular rate, history of chronic atrial fibrillation. PAST MEDICAL HISTORY: Significant for Waldenstrom macroglobulinemia, AFib, CAD, diverticular colonic disease status post colostomy, spinal fusion status post paraspinal abscess, drainage 2 months. PAST SURGICAL HISTORY: Nneka procedure for perforated diverticulitis in 2014, I and D of the back abscess in 2017. PREVIOUS WORKUP: As follows: The patient had a cardiac catheterization that showed initially normal coronaries. Most recently, echo dated 09/19/2016 shows normal LV size and normal LVH. Ejection fraction severely reduced, right ventricular systolic pressure 90 consistent with severe pulmonary hypertension, severe tricuspid regurgitation, trace aortic regurgitation, and moderate aortic valve stenosis. CURRENT MEDICATIONS: The patient was taking at home oxycodone, Remeron, Ativan, digoxin and Coreg. REVIEW OF SYSTEMS: As per HPI. PHYSICAL EXAMINATION: VITAL SIGNS: As follows: Temperature afebrile, heart rate 127, and blood pressure 84/53. HEENT: PERRLA, intact. NECK: Supple. No carotid bruits or thyromegaly. CHEST: Clear to auscultation. HEART: S1 and S2 regular. ABDOMEN: Soft. EXTREMITIES: Clubbing and cyanosis negative. LABORATORY DATA: Blood workup as follows: WBC *------*, hemoglobin 5.7, hematocrit 17.8 and platelet count 33. Chemistries shows sodium 130, potassium 4.0, chloride 93, carbon dioxide 33, anion gap of 11, BUN 23 and creatinine 0.7. IMPRESSION: A 52-year-old male with past medical history significant for chronic atrial fibrillation, Waldenstrom macroglobulinemia, paraspinal abscess recently drained, came in with a complaint of draining abscess, found to be with rapid ventricular rate, history of chronic atrial fibrillation, rapid rate is multifactorial secondary to underlying severe anemia, underlying pain and abscess, history of severely decreased left ventricular function, right ventricular pressure was 90 consistent with severe pulmonary hypertension, severe tricuspid regurgitation, trace aortic regurgitation, moderate valvular aortic stenosis, *------* normal coronaries, Waldenstrom macroglobulinemia, severe thrombocytopenia, anemia and severe leukopenia. RECOMMENDATIONS: We will start digoxin and put low-dose verapamil as blood pressure is tolerated. Overall, the patient's condition is critical. Long-term prognosis is extremely guarded. We will follow with you. The patient is not a candidate for anticoagulation because of severe thrombocytopenia, it causes spontaneously bleeding because of underlying *------*. We will put digoxin and give verapamil 2.5. Thank you *------* for providing us the opportunity in taking care of Mina. Driss Contreras MD
[2017-08-03] MEDS ORDERED: Potassium Chloride 20 mEq ER Tab PO ONE (09:48)
[2017-08-03] MEDS ORDERED: Digoxin 500 mcg/2ml (0.5 mg/2ml) Inj IVP ONE (09:49)
--- NOTE | 2017-08-03 11:15 | CP.PCM.CON ---
History of Present Illness - History of Present Illness History of Present Illness: Palliative consult requested by Dr Lan Gavin Reason: Goals of care/advance care planning 52 year old male with history of chronic atrial fibrillation, COPD, Waldenstrom' s mircroglobulinemia who presented with back pain and draining paraspinal abcess. The wound was drained 2 weeks prior. He was found to be in A fib with RVR. He also complained of low grade fever, but denied chills nausea, vomiting, chest pain , shortness of breath or cough. PMHX:chronic A Fib,CHF,HTN, COPD,pulmonary hypertension,tricuspid regurgiation, moderate aortic valve stenosis,diverticulitis s/p perforation and colostomy, paraspinal abcess,non ambulatory primarily bedbound. Social History: Non smoker, no alcohol or drug abuse. , lives with spouse. Family History Non contributory. Advance Care Planning:The patient has a Living Will at home, states is DNR/DNI. Review of Systems: As per HPI. Past Patient History - Infectious Disease Hx of Infectious Diseases: None - Past Social History Smoking Status: Never Smoked - CARDIAC Hx Cardiac Disorders: Yes Hx Congestive Heart Failure: Yes Hx Hypertension: Yes - PULMONARY Hx Respiratory Disorders: Yes Hx Chronic Obstructive Pulmonary Disease (COPD): Yes - NEUROLOGICAL Hx Neurological Disorder: No Hx Transient Ischemic Attacks (TIA): No - HEENT Hx HEENT Problems: No Hx Blind: No Hx Cataracts: No Hx Deafness: No Hx Difficulty Chewing: No Hx Epistaxis: No Hx Glaucoma: No Hx Macular Degeneration: No - RENAL Hx Chronic Kidney Disease: No Hx Renal Failure: No - ENDOCRINE/METABOLIC Hx Endocrine Disorders: No Hx Diabetes Mellitus Type 1: No Hx Diabetes Mellitus Type 2: No - HEMATOLOGICAL/ONCOLOGICAL Hx Blood Disorders: Yes Hx Cancer: Yes (Blood Cancer as per patient) Hx Chemotherapy: Yes - INTEGUMENTARY Hx Dermatological Problems: Yes Hx Basil Cell: No Hx Eczema: No Hx Melanoma: No Hx Psoriasis: No Hx Squamous Cell: No Other/Comment: cyst removed from back - MUSCULOSKELETAL/RHEUMATOLOGICAL Hx Musculoskeletal Disorders: Yes Hx Falls: Yes (past) - GASTROINTESTINAL Hx Gastrointestinal Disorders: Yes (colostomy) Hx Colostomy: Yes - GENITOURINARY/GYNECOLOGICAL Hx Genitourinary Disorders: No Hx Reproductive Disorders: No - PSYCHIATRIC Hx Psychophysiologic Disorder: No Hx Emotional Abuse: No Hx Physical Abuse: No Hx Substance Use: No - SURGICAL HISTORY Other/Comment: Colostomy, cyst removed from back - ANESTHESIA Hx Anesthesia: Yes Hx Anesthesia Reactions: No Hx Malignant Hyperthermia: No Meds Allergies/Adverse Reactions: Allergies Allergy/AdvReac Type Severity Reaction Status Date / Time No Known Allergies Allergy Verified 08/02/17 14:14 - Medications Medications: Current Medications Atenolol (Tenormin) 12.5 mg PO DAILY [facility] Last Admin: 08/03/17 10:31 Dose: 12.5 mg Digoxin (Lanoxin) 0.25 mg PO 1400 [facility] Furosemide (Lasix) 40 mg IV ONCE ONE Stop: 08/03/17 12:31 Mirtazapine (Remeron) 22.5 mg PO HS LUZ Last Admin: 08/03/17 00:25 Dose: 22.5 mg Morphine Sulfate (Morphine) 4 mg IVP Q4H PRN PRN Reason: Pain, moderate (4-7) Last Admin: 08/03/17 08:07 Dose: 4 mg Oxycodone/Acetaminophen (Percocet 10/325 Mg Tab) 1 tab PO Q6H PRN PRN Reason: Pain, severe (8-10) Last Admin: 08/03/17 03:07 Dose: 1 tab Verapamil HCl (Verapamil Inj) 2.5 mg IVP Q6H PRN PRN Reason: for Heart rate >130 Last Admin: 08/02/17 18:27 Dose: 2.5 mg Physical Exam - Constitutional Appears: Cachectic, Chronically Ill - Head Exam Head Exam: NORMAL INSPECTION - Eye Exam Eye Exam: Normal appearance, PERRL - ENT Exam ENT Exam: Mucous Membranes Moist, Normal Oropharynx - Neck Exam Neck exam: Positive for: Normal Inspection - Respiratory Exam Respiratory Exam: Decreased Breath Sounds, NORMAL BREATHING PATTERN - Cardiovascular Exam Cardiovascular Exam: Irregular Rhythm, +S1, +S2 - GI/Abdominal Exam GI & Abdominal Exam: Normal Bowel Sounds, Soft Additional comments: colostomy patent - Extremities Exam Extremities exam: Positive for: pedal edema Additional comments: contracture of toes on both feet , lower extremities with venous stasis - Back Exam Back exam: paraspinal tenderness Additional comments: wound in the Left upper back, midline, dressing intact - Neurological Exam Neurological exam: Alert, Oriented x3 - Psychiatric Exam Psychiatric exam: Flat Affect - Skin Skin Exam: Dry, Pallor - Additional Findings Additional findings: Palliative performance scale rating 40% Results - Vital Signs Recent Vital Signs: Last Vital Signs Temp 97.8 F 08/03/17 10:01 Pulse 124 H 08/03/17 10:31 Resp 20 08/03/17 10:01 BP 90/58 L 08/03/17 10:31 Pulse Ox 96 08/03/17 05:54 - Labs Result Diagrams: 08/03/17 06:30 08/03/17 06:30 Labs: Laboratory Results - last 24 hr 08/02/17 08/02/17 08/02/17 13:15 13:15 13:15 WBC 1.0 L* RBC 1.70 L Hgb 5.7 L* Hct 17.8 L* MCV 104.7 MCH 33.5 MCHC 32.0 RDW 18.2 H Plt Count 33 L* MPV 10.4 Gran % 66.7 Lymph % (Auto) 17.7 L [place] % (Auto) 15.6 H Eos % (Auto) 0.0 L Baso % (Auto) 0.0 Gran # 0.64 L Lymph # 0.2 L [place] # 0.2 Eos # 0.0 Baso # 0.00 ESR Retic Count PT 15.2 H INR 1.37 H APTT 35.6 Sodium 136 Potassium 4.2 Chloride 96 L Carbon Dioxide 33 Anion Gap 11 BUN 22 H Creatinine 0.7 L Est GFR ( Amer) > 60 Est GFR (Non-Af Amer) > 60 Random Glucose 105 Calcium 9.1 Total Bilirubin 1.7 H AST 17 D ALT 20 Alkaline Phosphatase 71 Total Protein 8.1 Albumin 3.3 Globulin 4.8 Albumin/Globulin Ratio 0.7 L Blood Type Antibody Screen Crossmatch BBK History Checked 08/02/17 08/03/17 08/03/17 13:30 06:30 06:30 WBC 0.8 L* RBC 1.73 L Hgb 5.6 L* Hct 17.5 L* MCV 101.2 D MCH 32.4 MCHC 32.0 RDW 20.0 H Plt Count 32 L* MPV 10.1 Gran % 65.8 Lymph % (Auto) 24.1 [place] % (Auto) 10.1 H Eos % (Auto) 0.0 L Baso % (Auto) 0.0 Gran # 0.52 L Lymph # 0.2 L [place] # 0.1 Eos # 0.0 Baso # 0.00 ESR Retic Count PT INR APTT Sodium 137 Potassium 3.6 Chloride 97 L Carbon Dioxide 33 Anion Gap 11 BUN 20 Creatinine 0.8 Est GFR ( Amer) > 60 Est GFR (Non-Af Amer) > 60 Random Glucose 108 Calcium 8.7 Total Bilirubin 2.0 H AST 17 ALT 20 Alkaline Phosphatase 64 Total Protein 7.5 Albumin 3.0 Globulin 4.4 Albumin/Globulin Ratio 0.7 L Blood Type A NEGATIVE Antibody Screen Negative Crossmatch See Detail BBK History Checked Patient has bt 08/03/17 08/03/17 06:30 09:30 WBC RBC Hgb Hct MCV MCH MCHC RDW Plt Count MPV Gran % Lymph % (Auto) [place] % (Auto) Eos % (Auto) Baso % (Auto) Gran # Lymph # [place] # Eos # Baso # ESR > 150 H Retic Count 2.03 H PT INR APTT Sodium Potassium Chloride Carbon Dioxide Anion Gap BUN Creatinine Est GFR ( Amer) Est GFR (Non-Af Amer) Random Glucose Calcium Total Bilirubin AST ALT Alkaline Phosphatase Total Protein Albumin Globulin Albumin/Globulin Ratio Blood Type Antibody Screen Crossmatch BBK History Checked Assessment & Plan - Assessment and Plan (Free Text) Assessment: 52 year old male admitted with pancytopenia, back pain,draining paraspinal abcess and atrial fibrillation with RVR . The patient is alert oriented, with flat affect. Complains of back pain which is exacerbated with movement. Patient states that Morphine pain medication alleviates his discomfort but wears off in sooner than 4 hours. Palliative services explained. Advance care planning discussion ensued. The patient states he has a Living Will at home. He affirms that he is DNR/DNI. His and son are his health care surrogates. Patient does not want to wear purple ID band designating DNR/DNI status. I explained that band is worn for his protection. POLST directive explained. Patient states that he is interested in completing a POLST but does not wish to do so at this time. Patient will have his bring a copy of the Living Will. Time spent in advance care planning discussion with this patient, 30 minutes Plan: Pain management: Has both Oxycodone and Morphine 4 mg IV ordered for severe pain. Would consider giving long acting Oxycodone ( Oxycontin 20 mg twice daily) every 12 hours and Morphine IV as needed for breakthrough pain. Add bowel regimen. Miralax daily. Advance care planning Palliative support
--- NOTE | 2017-08-03 11:49 | CP.PCM.CON ---
History of Present Illness - History of Present Illness History of Present Illness: 52 year old male with PMH Waldenstrom's Macroglobinemia currently on chemotherapy, atrial fibrillation on anticoagulation, history of diverticulitis S/P Sharpe's procedure, history of stoma skin infection, history of vertebral compression fractures, recent admission in 2016 for sepsis due to thoracic area soft tissue infection (recurrence) with methicillin-resistant coagulase negative staph (bacteremia with this as well), Pseudomonas, Acinetobacter - no evidence of vertebral osteomyelitis on MRI was in [facility] receiving prolonged antibiotics for the posterior thoracic area skin and skin structure infection and he was doing well there. However, he continues to have back pain and apparent increased drainage from the said area and he is now transferred back [place] [facility] He denies fever or chills, no nausea or vomiting, has generalized weakness, no abdominal pain, no sore throat, no cough or colds, no diarrhea, no dysuria. Infectious Diseases consult is requested to further evaluate and manage. Review of Systems - Review of Systems All systems: reviewed and no additional remarkable complaints except (as per HPI ) Past Patient History - Infectious Disease Hx of Infectious Diseases: None - Past Social History Smoking Status: Never Smoked - CARDIAC Hx Cardiac Disorders: Yes Hx Congestive Heart Failure: Yes Hx Hypertension: Yes - PULMONARY Hx Respiratory Disorders: Yes Hx Chronic Obstructive Pulmonary Disease (COPD): Yes - NEUROLOGICAL Hx Neurological Disorder: No Hx Transient Ischemic Attacks (TIA): No - HEENT Hx HEENT Problems: No Hx Blind: No Hx Cataracts: No Hx Deafness: No Hx Difficulty Chewing: No Hx Epistaxis: No Hx Glaucoma: No Hx Macular Degeneration: No - RENAL Hx Chronic Kidney Disease: No Hx Renal Failure: No - ENDOCRINE/METABOLIC Hx Endocrine Disorders: No Hx Diabetes Mellitus Type 1: No Hx Diabetes Mellitus Type 2: No - HEMATOLOGICAL/ONCOLOGICAL Hx Blood Disorders: Yes Hx Cancer: Yes (Blood Cancer as per patient) Hx Chemotherapy: Yes - INTEGUMENTARY Hx Dermatological Problems: Yes Hx Basil Cell: No Hx Eczema: No Hx Melanoma: No Hx Psoriasis: No Hx Squamous Cell: No Other/Comment: cyst removed from back - MUSCULOSKELETAL/RHEUMATOLOGICAL Hx Musculoskeletal Disorders: Yes Hx Falls: Yes (past) - GASTROINTESTINAL Hx Gastrointestinal Disorders: Yes (colostomy) Hx Colostomy: Yes - GENITOURINARY/GYNECOLOGICAL Hx Genitourinary Disorders: No Hx Reproductive Disorders: No - PSYCHIATRIC Hx Psychophysiologic Disorder: No Hx Emotional Abuse: No Hx Physical Abuse: No Hx Substance Use: No - SURGICAL HISTORY Other/Comment: Colostomy, cyst removed from back - ANESTHESIA Hx Anesthesia: Yes Hx Anesthesia Reactions: No Hx Malignant Hyperthermia: No Meds Allergies/Adverse Reactions: Allergies Allergy/AdvReac Type Severity Reaction Status Date / Time No Known Allergies Allergy Verified 08/02/17 14:14 - Medications Medications: Current Medications Atenolol (Tenormin) 12.5 mg PO DAILY LUZ Mirtazapine (Remeron) 22.5 mg PO HS LUZ Last Admin: 08/03/17 00:25 Dose: 22.5 mg Morphine Sulfate (Morphine) 4 mg IVP Q4H PRN PRN Reason: Pain, moderate (4-7) Last Admin: 08/03/17 08:07 Dose: 4 mg Oxycodone/Acetaminophen (Percocet 10/325 Mg Tab) 1 tab PO Q6H PRN PRN Reason: Pain, severe (8-10) Last Admin: 08/03/17 03:07 Dose: 1 tab Verapamil HCl (Verapamil Inj) 2.5 mg IVP Q6H PRN PRN Reason: for Heart rate >130 Last Admin: 08/02/17 18:27 Dose: 2.5 mg Physical Exam - Constitutional Appears: Cachectic, Chronically Ill - Head Exam Head Exam: NORMAL INSPECTION - ENT Exam ENT Exam: Mucous Membranes Moist - Neck Exam Neck exam: Negative for: Lymphadenopathy, Meningismus - Respiratory Exam Respiratory Exam: Decreased Breath Sounds - Cardiovascular Exam Cardiovascular Exam: +S1, +S2 - GI/Abdominal Exam GI & Abdominal Exam: Soft. absent: Tenderness - Back Exam Additional comments: dressings in place over the thoracic posterior area Results - Vital Signs Recent Vital Signs: Last Vital Signs Temp 97.5 F L 08/03/17 09:16 Pulse 124 H 08/03/17 09:16 Resp 20 08/03/17 09:16 BP 88/57 L 08/03/17 09:16 Pulse Ox 96 08/03/17 05:54 - Labs Result Diagrams: 08/03/17 06:30 08/03/17 06:30 Labs: Laboratory Results - last 24 hr 08/02/17 08/02/17 08/02/17 13:15 13:15 13:15 WBC 1.0 L* RBC 1.70 L Hgb 5.7 L* Hct 17.8 L* MCV 104.7 MCH 33.5 MCHC 32.0 RDW 18.2 H Plt Count 33 L* MPV 10.4 Gran % 66.7 Lymph % (Auto) 17.7 L [place] % (Auto) 15.6 H Eos % (Auto) 0.0 L Baso % (Auto) 0.0 Gran # 0.64 L Lymph # 0.2 L [place] # 0.2 Eos # 0.0 Baso # 0.00 Retic Count PT 15.2 H INR 1.37 H APTT 35.6 Sodium 136 Potassium 4.2 Chloride 96 L Carbon Dioxide 33 Anion Gap 11 BUN 22 H Creatinine 0.7 L Est GFR ( Amer) > 60 Est GFR (Non-Af Amer) > 60 Random Glucose 105 Calcium 9.1 Total Bilirubin 1.7 H AST 17 D ALT 20 Alkaline Phosphatase 71 Total Protein 8.1 Albumin 3.3 Globulin 4.8 Albumin/Globulin Ratio 0.7 L Blood Type Antibody Screen Crossmatch BBK History Checked 08/02/17 08/03/17 08/03/17 13:30 06:30 06:30 WBC 0.8 L* RBC 1.73 L Hgb 5.6 L* Hct 17.5 L* MCV 101.2 D MCH 32.4 MCHC 32.0 RDW 20.0 H Plt Count 32 L* MPV 10.1 Gran % 65.8 Lymph % (Auto) 24.1 [place] % (Auto) 10.1 H Eos % (Auto) 0.0 L Baso % (Auto) 0.0 Gran # 0.52 L Lymph # 0.2 L [place] # 0.1 Eos # 0.0 Baso # 0.00 Retic Count PT INR APTT Sodium 137 Potassium 3.6 Chloride 97 L Carbon Dioxide 33 Anion Gap 11 BUN 20 Creatinine 0.8 Est GFR ( Amer) > 60 Est GFR (Non-Af Amer) > 60 Random Glucose 108 Calcium 8.7 Total Bilirubin 2.0 H AST 17 ALT 20 Alkaline Phosphatase 64 Total Protein 7.5 Albumin 3.0 Globulin 4.4 Albumin/Globulin Ratio 0.7 L Blood Type A NEGATIVE Antibody Screen Negative Crossmatch See Detail BBK History Checked Patient has bt 08/03/17 06:30 WBC RBC Hgb Hct MCV MCH MCHC RDW Plt Count MPV Gran % Lymph % (Auto) [place] % (Auto) Eos % (Auto) Baso % (Auto) Gran # Lymph # [place] # Eos # Baso # Retic Count 2.03 H PT INR APTT Sodium Potassium Chloride Carbon Dioxide Anion Gap BUN Creatinine Est GFR ( Amer) Est GFR (Non-Af Amer) Random Glucose Calcium Total Bilirubin AST ALT Alkaline Phosphatase Total Protein Albumin Globulin Albumin/Globulin Ratio Blood Type Antibody Screen Crossmatch BBK History Checked Assessment & Plan - Assessment and Plan (Free Text) Plan: assessment consider sepsis due to thoracic area soft tissue infection (re-recurrence) - history of sepsis due to thoracic area soft tissue infection (recurrence) with methicillin-resistant coagulase negative staph (bacteremia with this as well), Pseudomonas, Acinetobacter with no evidence of vertebral osteomyelitis on MRI ( 2016); previously the abscess had MRSA and E. faecalis history of C. diff associated diarrhea history of intra-abdominal infection/colitis history of Acute sigmoid diverticulitis with abscess formation S/P resection and colostomy placement Waldenstrom's Macroglobinemia currently on chemotherapy atrial fibrillation on anticoagulation Plan will start patient on Vancomycin and Merrem pending blood and wound cx; follow up Surgery recommendations will monitor clinically
[2017-08-03] MEDS: Morphine 2 mg/ml ISec IVP PRN ×3 (12:26→20:39)
[2017-08-03] MEDS: Digoxin 250 mcg (0.25 mg) Tab PO SCH (14:15)
[2017-08-03 14:16] LABS: IMMUNOGLOBULIN G 337.2 mg/dL (700.0-1600.0)
[2017-08-03 15:15] LABS: IMMUNOGLOBULIN M > 2000.0 mg/dL (40.0-230.0)
[2017-08-03 15:22] LABS: IMMUNOGLOBULIN A < 40.0 mg/dL (70.0-400.0)
--- NOTE | 2017-08-03 15:37 | PN ---
DATE: 08/03/2017 REASON FOR CONSULTATION AND FOLLOWUP: Atrial fibrillation, rapid ventricular rate. SUBJECTIVE: The patient feels a lot better than yesterday, eating breakfast. No chest pain, no shortness of breath, no palpitation. OBJECTIVE: Not in apparent distress. PHYSICAL EXAMINATION: As follows: VITAL SIGNS: Temperature afebrile, heart rate 94, blood pressure 90/56. HEENT: PERRLA. Extraocular muscles intact. NECK: Supple. No carotid bruits. No thyromegaly. CHEST: Clear to auscultation. HEART: S1 and S2, regular. ABDOMEN: Soft. EXTREMITIES: Clubbing, cyanosis negative. LABORATORY DATA: Blood workup as follows: WBC is , hemoglobin 5.6, hematocrit 17.5, platelet count 32. Chemistry shows sodium 110, potassium 3.6, chloride 97, carbon dioxide 33, anion jose miguel of 11, BUN 29, creatinine 0.8. Total bilirubin 2. IMPRESSION: Atrial fibrillation with rapid ventricular rate, severe anemia, thrombocytopenia, severe leukopenia, Waldenstrom macroglobulinemia, paraspinal abscess draining. This rapid ventricular is multifactorial secondary to anemia, secondary to sepsis, history of decreased left ventricular function, elevated right ventricular pulmonary pressure, right ventricular systolic pressure 90, severe pulmonary hypertension, severe tricuspid regurgitation, severe aortic regurgitation, moderate aortic stenosis, normal coronaries. RECOMMENDATION: Continue digoxin, continue atenolol, continue p.r.n. verapamil, 2 units of magnesium oxide is being given. We will give 40 of Lasix in between the 2 pack unit. We will give 40 mg of K-Dur now and give one dose of digoxin now and then start p.o. from 2 p.m. and give 40 mg of Lasix around 12 noon in between the 2 packed RBC's. Thank you Dr. Gavin for providing us the opportunity in taking care of the patient, Jose [place]. Overall, the patient's condition is critical. Long-term prognosis is guarded. Driss Contreras MD cc: Pepito Gavin MD
--- NOTE | 2017-08-03 15:43 | PN ---
SUBJECTIVE: Patient is 52 years old, seen and examined, lying in bed, awake, alert, oriented, receiving blood transfusion. PHYSICAL EXAMINATION VITAL SIGNS: He is afebrile, pulse 120, respirations 20, blood pressure 90/58. LUNGS: Bilateral fair airflow. No rhonchi or crackle. HEART: S1 and S2 audible. ABDOMEN: Soft. Colostomy functional. He has paraspinal draining wound and also has stage I sacral redness. EXTREMITIES: Bilateral legs, no edema. LABORATORY DATA: WBC 0.8, hemoglobin 5.6, hematocrit 17.5, platelets of 32. Chemistry, sodium 137, potassium 3.6, chloride 97, CO2 of 33, BUN 20, creatinine 0.8, blood sugar of 108. ASSESSMENT: 1. Pancytopenia. 2. Waldenstrom hyperglobulinemia. 3. Chronic atrial fibrillation. 4. Hypotension. 5. History of hypertension, currently hypotensive. PLAN: The patient is getting Neupogen with potassium supplement. We will continue him on Digoxin. He is on meropenem and Lasix as needed. I will discuss with ID if we need to repeat MRI to rule out osteomyelitis because he has been started on antibiotics already. Pepito Gavin MD
[2017-08-03] MEDS: Meropenem 1 GM in Dextrose 5% In Water 100 ML IVPB SCH ×2 (16:32→21:49)
[2017-08-03] MEDS: Vancomycin 1gm in NS 250ml 1 GM/250 ML BAG IVPB SCH (17:17)
--- NOTE | 2017-08-03 17:28 | CP.PCM.PN ---
Subjective - Date & Time of Evaluation Date of Evaluation: 08/03/17 Time of Evaluation: 07:25 - Subjective Subjective: General Surgery Progress Note For Dr. Mas This patient was seen and examined this AM at bedside. No acute events to report overnight. His dressing was changed this AM. He denies any fevers chulls chest pain nausea vomiting or diarrhea. Objective - Vital Signs/Intake and Output Vital Signs (last 24 hours): Temp Pulse Resp BP Pulse Ox 98.9 F 82 20 90/58 L 96 08/03/17 16:14 08/03/17 16:14 08/03/17 16:14 08/03/17 16:14 08/03/17 05:54 Intake and Output: 08/03/17 08/03/17 06:59 18:59 Intake Total 1471 1350 Output Total 300 1000 Balance 1171 350 - Medications Medications: Current Medications Atenolol (Tenormin) 12.5 mg PO DAILY [facility] Last Admin: 08/03/17 10:31 Dose: 12.5 mg Digoxin (Lanoxin) 0.25 mg PO 1400 [facility] Last Admin: 08/03/17 14:15 Dose: 0.25 mg Meropenem 1 gm/ Dextrose 100 mls @ 100 mls/hr IVPB Q8 LUZ PRN Reason: Protocol Stop: 08/10/17 14:01 Last Admin: 08/03/17 16:32 Dose: 100 mls/hr Vancomycin HCl (Vancomycin 1gm) 1 gm in 250 mls @ 167 mls/hr IVPB Q12H LUZ PRN Reason: Protocol Last Admin: 08/03/17 17:17 Dose: 167 mls/hr Mirtazapine (Remeron) 22.5 mg PO HS [facility] Last Admin: 08/03/17 00:25 Dose: 22.5 mg Morphine Sulfate (Morphine) 4 mg IVP Q4H PRN PRN Reason: Pain, moderate (4-7) Last Admin: 08/03/17 16:33 Dose: 4 mg Oxycodone/Acetaminophen (Percocet 10/325 Mg Tab) 1 tab PO Q6H PRN PRN Reason: Pain, severe (8-10) Last Admin: 08/03/17 03:07 Dose: 1 tab Verapamil HCl (Verapamil Inj) 2.5 mg IVP Q6H PRN PRN Reason: for Heart rate >130 Last Admin: 08/02/17 18:27 Dose: 2.5 mg - Labs Labs: 08/03/17 06:30 08/03/17 06:30 PT 15.2 SECONDS (9.4-12.5) H 08/02/17 13:15 INR 1.37 (0.93-1.08) H 08/02/17 13:15 APTT 35.6 Seconds (25.1-36.5) 08/02/17 13:15 - Constitutional Appears: Non-toxic - Head Exam Head Exam: ATRAUMATIC - Eye Exam Eye Exam: EOMI, Normal appearance - ENT Exam ENT Exam: Mucous Membranes Moist - Respiratory Exam Respiratory Exam: NORMAL BREATHING PATTERN - Cardiovascular Exam Cardiovascular Exam: REGULAR RHYTHM - GI/Abdominal Exam GI & Abdominal Exam: Soft. absent: Tenderness - Back Exam Additional comments: 1 inch wound non necrotic - Neurological Exam Neurological Exam: Alert, Awake Assessment and Plan - Assessment and Plan (Free Text) Assessment: 52 yo M w/ Waldenstrom Macroglobulinemia, w/ non-healing wound in the upper back s/p I&D in [address] wound vac tomorrow continue medical management per primary team Discuss with Dr. Chace Brennan PGY2
[2017-08-04] MEDS: Vancomycin 1gm in NS 250ml 1 GM/250 ML BAG IVPB SCH ×2 (00:06→12:25)
[2017-08-04] MEDS: Morphine 2 mg/ml ISec IVP PRN ×6 (00:09→22:29)
[2017-08-04] MEDS: Meropenem 1 GM in Dextrose 5% In Water 100 ML IVPB SCH ×3 (05:00→22:27)
[2017-08-04 06:24] LABS: GRAN # 1.86 (1.4-6.5); GRAN % 85.7 % (50.0-68.0); LYMPH # 0.2 (1.2-3.4); LYMPH % 9.7 % (22.0-35.0); MEAN CORPUSCULAR HEMOGLOBIN 31.8 pg (25.0-35.0); MEAN CORPUSCULAR HGB CONC 31.8 g/dl (31.0-37.0); MEAN PLATELET VOLUME 10.1 fl (7.0-11.0); MONO # 0.1 (0.1-0.6); MONO % 4.6 % (1.0-6.0); RED CELL DISTRIBUTION WIDTH 20.4 % (11.5-14.5)
[2017-08-04 06:36] LABS: HEMATOCRIT 21.1 % (42.0-52.0); PLATELET COUNT 29 10^3/uL (120.0-450.0); WHITE BLOOD COUNT 2.2 10^3/ul (4.5-11.0)
--- NOTE | 2017-08-04 13:22 | CP.PCM.PN ---
Subjective - Date & Time of Evaluation Date of Evaluation: 08/04/17 Time of Evaluation: 13:21 - Subjective Subjective: General Surgery - DR. Mas Pt S&E. JACEY. PT complains of back pain this morning but unchanged from prior. Wound vac was placed today and pt. tolerated well. He denies any F/C, SOB/CP. Objective - Vital Signs/Intake and Output Vital Signs (last 24 hours): Temp Pulse Resp BP Pulse Ox 98.1 F 96 H 20 79/55 L 94 L 08/04/17 06:00 08/04/17 09:47 08/04/17 06:00 08/04/17 09:47 08/04/17 06:00 Intake and Output: 08/04/17 08/04/17 06:59 18:59 Intake Total 810 Output Total 350 Balance 460 - Medications Medications: Current Medications Atenolol (Tenormin) 12.5 mg PO DAILY [facility] Last Admin: 08/04/17 09:47 Dose: 12.5 mg Digoxin (Lanoxin) 0.25 mg PO 1400 [facility] Last Admin: 08/03/17 14:15 Dose: 0.25 mg Meropenem 1 gm/ Dextrose 100 mls @ 100 mls/hr IVPB Q8 LUZ PRN Reason: Protocol Stop: 08/10/17 14:01 Last Admin: 08/04/17 05:00 Dose: 100 mls/hr Vancomycin HCl (Vancomycin 1gm) 1 gm in 250 mls @ 167 mls/hr IVPB Q12H [facility]Z PRN Reason: Protocol Last Admin: 08/04/17 12:25 Dose: 167 mls/hr Mirtazapine (Remeron) 22.5 mg PO HS [facility] Last Admin: 08/03/17 21:48 Dose: 22.5 mg Morphine Sulfate (Morphine) 4 mg IVP Q4H PRN PRN Reason: Pain, moderate (4-7) Last Admin: 08/04/17 09:44 Dose: 4 mg Oxycodone/Acetaminophen (Percocet 10/325 Mg Tab) 1 tab PO Q6H PRN PRN Reason: Pain, severe (8-10) Last Admin: 08/03/17 03:07 Dose: 1 tab Verapamil HCl (Verapamil Inj) 2.5 mg IVP Q6H PRN PRN Reason: for Heart rate >130 Last Admin: 08/02/17 18:27 Dose: 2.5 mg - Labs Labs: 08/04/17 06:00 08/03/17 06:30 PT 15.2 SECONDS (9.4-12.5) H 08/02/17 13:15 INR 1.37 (0.93-1.08) H 08/02/17 13:15 APTT 35.6 Seconds (25.1-36.5) 08/02/17 13:15 - Constitutional Appears: No Acute Distress - Head Exam Head Exam: ATRAUMATIC, NORMAL INSPECTION, NORMOCEPHALIC - Back Exam Additional comments: 4x4cm pressure ulcer in the mid upper thoracic region, now with wound vac in place, mild bloody drainage present, appeared to be granulating in the edges - Neurological Exam Neurological Exam: Alert, Oriented x3 - Skin Skin Exam: Dry, Intact, Pallor Assessment and Plan - Assessment and Plan (Free Text) Assessment: 52M w/ Waldenstrom Macroglobulinemia, w/ non-healing wound in the upper back s/ p I&D in 2016 -Wound vac to low cont. suction 125mmhg -Continue to turn pt. q3h with foam wedge support -Will replace with Home wound vac when ready for D/C -Continue care as per Primary/Hematology DW Dr Chace Mccormack PGY3
[2017-08-04] MEDS: Digoxin 250 mcg (0.25 mg) Tab PO SCH (14:34)
--- NOTE | 2017-08-04 18:22 | CON ---
DATE: ONCOLOGY CONSULTATION HISTORY OF PRESENT ILLNESS: This is a 52-year-old man with Waldenstrom's macroglobulinemia. He has several medical problems. About a year ago, he had a colostomy placed for an acute diverticulitis. He has severe back pains, this over many years, so that he really is bed-bound at this point. He has a non-healing ulcer of his sacrum. Now, in terms of his Waldenstrom's, I was treating him for several years with various type of medications. He has changed to Dr. Saravia over in [place], who most recently was treating him with chlorambucil pills; however, the patient was too weak at that time to continue and he has now been admitted. PHYSICAL EXAMINATION: SKIN: No petechiae. No bruises. HEENT: Temporal wasting noted. I have not seen him in many months, but you can see as much more temporal wasting . No mucosal bleeding noted. Anicteric. NODES: Nonpalpable in the axillary, cervical, supraclavicular, inguinal regions. LUNGS: The patient is able to lie flat in bed and they have clear sounds. HEART: S1 and S2. ABDOMEN: Shows no liver, no spleen, no tenderness, no rebound. EXTREMITIES: No edema. CENTRAL NERVOUS SYSTEM: Plantars are downgoing bilaterally. LABORATORY DATA: When he came into the hospital, the white count was 0.8, hemoglobin of 5.6, and platelet count of 32. We gave him 4 units of packed cells and his hemoglobin now is 6.7. I started him on Neupogen and his white count is now 2.2. Platelet count has been steadied at about 30. Retic count 2.03, sed rate over 150. INR 1.32. His BUN was 22 and bilirubin 2.0. Normal liver function tests. The total protein is 7.5 with a globulin of 4.4. B12 of 231 and his IgM level is only described as over 2000. Dr. Saravia tells me that it was in the 4000 range when he checked it recently. At this point, I am going to add B12 to his regimen. There was some discussion I had with Dr. Saravia as to whether we can treat Waldenstrom's with Rituxan, but right now, I think we cannot do that while there is a question of infection and he is too weak to get it, so at this point, we are going to continue to treat his ulcerations and decide as an outpatient what further treatment to give him for his Waldenstrom's. Osvaldo Nolasco MD
--- NOTE | 2017-08-04 20:08 | PN ---
DATE: SUBJECTIVE: Td Tobardarrian was seen. The wound is deep, seem to be granulating, bleeding a little bit. We tried the wound VAC and IV antibiotics. He presently refused the MRI to rule out osteo. Cultures are taken, showing gram-positive cocci, heavy growth. No growth in the blood cultures. Noted that the white count is still low at 2.2, although it has come up, platelet count is 29. Total bilirubin slightly elevated 2.0. Td Mas MD
--- NOTE | 2017-08-04 21:21 | PN ---
DATE: 08/04/2017 LOCATION: The patient is in room 378, bed 1. REASON FOR CONSULTATION AND FOLLOWUP: Atrial fibrillation with rapid ventricular rate. SUBJECTIVE: The patient is lying flat in bed without chest pain, shortness of breath, or palpitations. PHYSICAL EXAMINATION: VITAL SIGNS: Blood pressure 82/54, respirations 20, pulse 89, and temperature 98.5. HEENT: Head is normocephalic. Eyes; pupils normal. Conjunctivae pale. NECK: JVP low. Carotid equal. THORAX: AP diameter normal. LUNGS: Clear. CARDIOVASCULAR: S1 and S2. ABDOMEN: Soft. Bowel sounds are normal. EXTREMITIES: No clubbing. No cyanosis. LABORATORY DATA: WBC 2.2, hemoglobin 6.7, hematocrit 21.1, and platelets 29. Sodium 137, potassium 3.6, BUN 20, creatinine 0.8, and calcium 8.7. AST and ALT normal. Total protein and albumin normal. DIAGNOSES: Atrial fibrillation, severe anemia and thrombocytopenia, severe leukopenia, Waldenstrom macroglobulinemia, paraspinal abscess which is draining, sepsis, history of decreased left ventricular systolic function, elevated right ventricular pulmonary pressure which 90 mmHg that is suggestive of severe pulmonary hypertension, severe tricuspid regurgitation, severe aortic regurgitation, and moderate aortic stenosis with normal coronaries. PLAN: The patient is on digoxin 0.25 p.o. daily, meropenem 1 g IV q.8 hours, and atenolol 12.5 mg p.o. daily. The patient may need blood transfusion. We will continue present therapy and we will follow. Driss Lawrence MD
[2017-08-05] MEDS: Morphine 2 mg/ml ISec IVP PRN ×5 (03:10→20:47)
[2017-08-05] MEDS: Vancomycin 1gm in NS 250ml 1 GM/250 ML BAG IVPB SCH (06:04)
[2017-08-05] MEDS ORDERED: Vancomycin 1gm in NS 250ml 1 GM/250 ML BAG IVPB SCH (06:15)
[2017-08-05] MEDS: Meropenem 1 GM in Dextrose 5% In Water 100 ML IVPB SCH (06:17)
--- NOTE | 2017-08-05 12:39 | CP.PCM.PN ---
Subjective - Date & Time of Evaluation Date of Evaluation: 08/05/17 Time of Evaluation: 10:50 - Subjective Subjective: Resting in bed, still complaining of back pain, no fevers overnight, no diarrhea. Objective - Vital Signs/Intake and Output Vital Signs (last 24 hours): Temp Pulse Resp BP Pulse Ox 97.6 F 94 H 19 91/53 L 97 08/05/17 06:00 08/05/17 06:00 08/05/17 06:00 08/05/17 06:00 08/05/17 06:00 Intake and Output: 08/05/17 08/05/17 06:59 18:59 Intake Total 120 200 Output Total 500 Balance -380 200 - Medications Medications: Current Medications Atenolol (Tenormin) 12.5 mg PO DAILY [facility] Last Admin: 08/05/17 09:31 Dose: 12.5 mg Digoxin (Lanoxin) 0.25 mg PO 1400 [facility] Last Admin: 08/04/17 14:34 Dose: 0.25 mg Meropenem 1 gm/ Dextrose 100 mls @ 100 mls/hr IVPB Q8 [facility] PRN Reason: Protocol Stop: 08/10/17 14:01 Last Admin: 08/05/17 06:17 Dose: 100 mls/hr Vancomycin HCl (Vancomycin 1gm) 1 gm in 250 mls @ 167 mls/hr IVPB 0700,1900 [facility] PRN Reason: Protocol Last Admin: 08/05/17 07:37 Dose: 167 mls/hr Mirtazapine (Remeron) 22.5 mg PO HS [facility] Last Admin: 08/04/17 22:28 Dose: 22.5 mg Morphine Sulfate (Morphine) 4 mg IVP Q4H PRN PRN Reason: Pain, moderate (4-7) Last Admin: 08/05/17 08:18 Dose: 4 mg Oxycodone/Acetaminophen (Percocet 10/325 Mg Tab) 1 tab PO Q6H PRN PRN Reason: Pain, severe (8-10) Last Admin: 08/03/17 03:07 Dose: 1 tab Verapamil HCl (Verapamil Inj) 2.5 mg IVP Q6H PRN PRN Reason: for Heart rate >130 Last Admin: 08/02/17 18:27 Dose: 2.5 mg - Labs Labs: 08/04/17 06:00 08/03/17 06:30 PT 15.2 SECONDS (9.4-12.5) H 08/02/17 13:15 INR 1.37 (0.93-1.08) H 08/02/17 13:15 APTT 35.6 Seconds (25.1-36.5) 08/02/17 13:15 - Constitutional Appears: Cachectic, Chronically Ill - Head Exam Head Exam: NORMAL INSPECTION - Neck Exam Neck Exam: absent: Meningismus - Respiratory Exam Respiratory Exam: Decreased Breath Sounds - Cardiovascular Exam Cardiovascular Exam: +S1, +S2 - GI/Abdominal Exam GI & Abdominal Exam: Soft. absent: Tenderness Assessment and Plan - Assessment and Plan (Free Text) Plan: assessment R/O sepsis due to thoracic area soft tissue infection (re-recurrence), now growing MSSA - history of sepsis due to thoracic area soft tissue infection ( recurrence) with methicillin-resistant coagulase negative staph (bacteremia with this as well), Pseudomonas, Acinetobacter with no evidence of vertebral osteomyelitis on MRI (2016); previously the abscess had MRSA and E. faecalis history of C. diff associated diarrhea history of intra-abdominal infection/colitis history of Acute sigmoid diverticulitis with abscess formation S/P resection and colostomy placement Waldenstrom's Macroglobinemia currently on chemotherapy atrial fibrillation on anticoagulation Plan on Vancomycin and Merrem - can switch to Cefazolin; reviewed wound cx results - patient can be switched to PO doxycycline for 2-3 weeks on discharge; awaiting plan for surgery for wound vacuum placement will continue to monitor clinically while the patient is in the hospital
--- NOTE | 2017-08-05 13:51 | PN ---
DATE: 08/05/2017 LOCATION: The patient is in room 378, bed 2. REASON FOR CONSULTATION AND FOLLOWUP: Atrial fibrillation with rapid ventricular rate. SUBJECTIVE: The patient is lying flat in bed. Denies any chest pain, shortness of breath, or palpitations. PHYSICAL EXAMINATION: VITAL SIGNS: Blood pressure of 91/53, respirations of 19, pulse is 88, and the patient is afebrile. HEENT: Head is normocephalic. Eyes; pupils are normal. Conjunctivae are pale. NECK: JVP low. Carotids are equal. THORAX: AP diameter normal. LUNGS: No rales. CARDIOVASCULAR: S1 and S2. ABDOMEN: Soft. Bowel sounds are normal. EXTREMITIES: No clubbing. No cyanosis. LABORATORY DATA: WBC of 2.2, hemoglobin of 6.7, hematocrit of 21.1, and platelets of 29. Sodium of 137, potassium of 3.6, BUN of 20, and creatinine of 0.8. AST and ALT are normal. Total protein and albumin are normal. DIAGNOSES: Atrial fibrillation, severe anemia and thrombocytopenia, and leukopenia, Waldenstrom macroglobulinemia, paraspinal abscess, which is draining, sepsis, history of decreased left ventricular systolic function, right ventricular systolic pressure 90 mmHg suggestive of severe pulmonary hypertension, severe tricuspid regurgitation, severe aortic regurgitation, and moderate aortic stenosis with normal coronaries. PLAN: Continue digoxin 0.25 daily, Merrem 1 g IV q.8 hours, atenolol 12.5 mg p.o. daily, and vancomycin 1 g IV b.i.d. The patient may need blood transfusion that is we will leave with the Hematology/Oncology. In the meantime, with the present therapy, the patient's heart rate is stable. We will continue the same. We will follow. Driss Lawrence MD
[2017-08-05] MEDS: ceFAZolin 2 GM in Sodium Chloride 0.9% 100 ML IVPB SCH ×2 (15:02→21:07)
[2017-08-05] MEDS: Digoxin 250 mcg (0.25 mg) Tab PO SCH (15:03)
--- NOTE | 2017-08-05 16:47 | CP.PCM.PN ---
Subjective - Date & Time of Evaluation Date of Evaluation: 08/05/17 Time of Evaluation: 16:43 - Subjective Subjective: General Surgery - Dr. Mas Pt S&E. JACEY. PT complains of mild back pain but denies any additional issues. Wound vac is in place and functioning well, no leak. Pt denies any Fevers/Chills, SOB /Chest pains. Objective - Vital Signs/Intake and Output Vital Signs (last 24 hours): Temp Pulse Resp BP Pulse Ox 98.4 F 87 20 79/55 L 97 08/05/17 12:00 08/05/17 14:00 08/05/17 12:00 08/05/17 12:00 08/05/17 06:00 Intake and Output: 08/05/17 08/05/17 06:59 18:59 Intake Total 120 500 Output Total 500 600 Balance -380 -100 - Medications Medications: Current Medications Atenolol (Tenormin) 12.5 mg PO DAILY [facility] Last Admin: 08/05/17 09:31 Dose: 12.5 mg Digoxin (Lanoxin) 0.25 mg PO 1400 [facility] Last Admin: 08/05/17 15:03 Dose: 0.25 mg Cefazolin Sodium 2 gm/ Sodium (Chloride) 100 mls @ 200 mls/hr IVPB Q8 [facility] PRN Reason: Protocol Last Admin: 08/05/17 15:02 Dose: 200 mls/hr Mirtazapine (Remeron) 22.5 mg PO HS [facility] Last Admin: 08/04/17 22:28 Dose: 22.5 mg Morphine Sulfate (Morphine) 4 mg IVP Q4H PRN PRN Reason: Pain, moderate (4-7) Last Admin: 08/05/17 16:31 Dose: 4 mg Oxycodone/Acetaminophen (Percocet 10/325 Mg Tab) 1 tab PO Q6H PRN PRN Reason: Pain, severe (8-10) Last Admin: 08/03/17 03:07 Dose: 1 tab Verapamil HCl (Verapamil Inj) 2.5 mg IVP Q6H PRN PRN Reason: for Heart rate >130 Last Admin: 08/02/17 18:27 Dose: 2.5 mg - Labs Labs: 08/04/17 06:00 08/03/17 06:30 PT 15.2 SECONDS (9.4-12.5) H 08/02/17 13:15 INR 1.37 (0.93-1.08) H 08/02/17 13:15 APTT 35.6 Seconds (25.1-36.5) 08/02/17 13:15 - Constitutional Appears: No Acute Distress - Head Exam Head Exam: ATRAUMATIC, NORMAL INSPECTION, NORMOCEPHALIC - Respiratory Exam Respiratory Exam: NORMAL BREATHING PATTERN. absent: Respiratory Distress - Back Exam Additional comments: wound vac in mid thoracic region to suction - Neurological Exam Neurological Exam: Alert, Oriented x3 - Psychiatric Exam Psychiatric exam: Normal Affect, Normal Mood - Skin Skin Exam: Dry, Intact Assessment and Plan - Assessment and Plan (Free Text) Assessment: 52M w/ Waldenstrom Macroglobulinemia, w/ non-healing wound in the upper back s/ p I&D in 2016 -Continue Wound vac to low cont. suction 125mmhg -Continue to turn pt. q3h with foam wedge support -Appreciate ID reccs - Doxy PO for discharge -Will replace wound vac with [employer] home vac, which has been ordered and will be placed when it arrives, likely tomorrow 08/[address] Chace Mccormack PGY3
--- NOTE | 2017-08-05 16:55 | PN ---
DATE: SUBJECTIVE: The patient is a 52-year-old seen and examined, lying in bed as he had wound VAC in place. According to surgeon, he does not need MRI as there does not seem to be osteomyelitis, it seems to be soft tissue infection; however, he is on IV antibiotics. PHYSICAL EXAMINATION: GENERAL: He is awake, alert, oriented, and communicative. VITAL SIGNS: He is afebrile, pulse is 87, respirations 20, and blood pressure 82/48. LUNGS: Bilateral fair airflow. No rhonchi or crackle. HEART: S1 and S2, audible. ABDOMEN: Soft, obese, and nontender. Colostomy in place. NEUROLOGIC: He is awake, alert, oriented, able to communicate. Moves all extremities. He has generalized weakness. LABORATORY DATA: WBC is 2.2, hemoglobin is 6.7, hematocrit is 21, and platelets of 29 more than 15, B12 listed as 31. ASSESSMENT: 1. Pancytopenia. 2. Cardiomyopathy. 3. Chronic atrial fibrillation. 4. Hypotension. 5. Paraspinal draining wound. PLAN: Currently, the patient is on meropenem. He is growing Gram-positive cocci and these patient's followup blood cultures are negative. Continue him on IV antibiotics until we get the sensitivity back and determine if he need to be on antibiotics or not. Then we made a decision that if he need IV antibiotics, he will be sent to CCU, otherwise he can be discharged home on p.o. antibiotics and wound VAC will be monitored as an outpatient basis after discharge. Followup his CBC in a.m. B12 injection was ordered by . Pepito Gavin MD
--- NOTE | 2017-08-05 21:19 | PN ---
DATE: SUBJECTIVE: The patient is a 52-year-old seen and examined, lying in bed, wound VAC in place. No nausea. No vomiting. No diarrhea. PHYSICAL EXAMINATION: VITAL SIGNS: He is afebrile, pulse 75, respirations 16, and blood pressure 88/55. LUNGS: Bilateral fair airflow. No rhonchi or crackle. HEART: S1 and S2, audible. ABDOMEN: Soft and nontender. No rebound. No guarding. NEUROLOGIC: The patient is awake, alert, oriented and communicative. LABORATORY DATA: WBC is 2.2, hemoglobin is 6.7, hematocrit is 21, and platelets of 29. Chemistry, his C-reactive protein is more than 15, B12 is 231. His IgM is more than 2000, IgA less than 40. His wound cultures are positive for Staphylococcus aureus, sensitive to Bactrim. ASSESSMENT: 1. Paraspinal thoracic region draining wound and wound culture positive for Staphylococcus aureus. 2. Waldenstrom's hypergammaglobulinemia. 3. Chronic atrial fibrillation. 4. Debility and deconditioning. PLAN: The patient is currently on Ancef. He is receiving Neupogen. He is on digoxin. He is getting verapamil 2.5 mg q. 6 hour. I will start him on B12 at 1000 mcg daily. Awaiting ID input to make the disposition plan. Pepito Gavin MD
[2017-08-06] MEDS: Morphine 2 mg/ml ISec IVP PRN ×3 (03:01→13:35)
[2017-08-06] MEDS: ceFAZolin 2 GM in Sodium Chloride 0.9% 100 ML IVPB SCH ×2 (05:55→13:08)
--- NOTE | 2017-08-06 09:18 | CP.PCM.PN ---
Subjective - Date & Time of Evaluation Date of Evaluation: 08/06/17 Time of Evaluation: 09:15 - Subjective Subjective: General Surgery - DR. Mas PT S&E. JACEY. PT complains of back pain at site of wound vac today. Vac is functioning well on 125mmhg, was turned to 70mmhg and will re-assess if any improvement in pts. discomfort. Otherwise pt denies any complaints and denies any F/C, SOB/CP. Objective - Vital Signs/Intake and Output Vital Signs (last 24 hours): Temp Pulse Resp BP Pulse Ox 98.7 F 84 18 76/52 L 97 08/06/17 06:00 08/06/17 06:00 08/06/17 06:00 08/06/17 06:00 08/06/17 06:00 Intake and Output: 08/06/17 08/06/17 06:59 18:59 Intake Total 0 Output Total 400 Balance -400 - Medications Medications: Current Medications Atenolol (Tenormin) 12.5 mg PO DAILY [facility] Last Admin: 08/05/17 09:31 Dose: 12.5 mg Cyanocobalamin (Vitamin B12 100 Mcg Tab) 100 mcg PO DAILY [facility] Digoxin (Lanoxin) 0.25 mg PO 1400 [facility] Last Admin: 08/05/17 15:03 Dose: 0.25 mg Cefazolin Sodium 2 gm/ Sodium (Chloride) 100 mls @ 200 mls/hr IVPB Q8 [facility] PRN Reason: Protocol Last Admin: 08/06/17 05:55 Dose: 200 mls/hr Mirtazapine (Remeron) 22.5 mg PO HS [facility] Last Admin: 08/05/17 21:08 Dose: 22.5 mg Morphine Sulfate (Morphine) 4 mg IVP Q4H PRN PRN Reason: Pain, moderate (4-7) Last Admin: 08/06/17 03:01 Dose: 4 mg Oxycodone/Acetaminophen (Percocet 10/325 Mg Tab) 1 tab PO Q6H PRN PRN Reason: Pain, severe (8-10) Last Admin: 08/03/17 03:07 Dose: 1 tab Verapamil HCl (Verapamil Inj) 2.5 mg IVP Q6H PRN PRN Reason: for Heart rate >130 Last Admin: 08/02/17 18:27 Dose: 2.5 mg - Labs Labs: 08/04/17 06:00 08/03/17 06:30 PT 15.2 SECONDS (9.4-12.5) H 08/02/17 13:15 INR 1.37 (0.93-1.08) H 08/02/17 13:15 APTT 35.6 Seconds (25.1-36.5) 08/02/17 13:15 - Constitutional Appears: No Acute Distress - Head Exam Head Exam: ATRAUMATIC, NORMAL INSPECTION, NORMOCEPHALIC - Respiratory Exam Respiratory Exam: NORMAL BREATHING PATTERN. absent: Respiratory Distress - Back Exam Additional comments: wound vac mid thoracic to suction 70mmhg - Neurological Exam Neurological Exam: Alert, Oriented x3 - Psychiatric Exam Psychiatric exam: Normal Affect, Normal Mood - Skin Skin Exam: Dry, Intact Assessment and Plan - Assessment and Plan (Free Text) Assessment: 52M w/ Waldenstrom Macroglobulinemia, w/ non-healing wound in the upper back s/ p I&D in 2016 -Continue Wound vac to suction at 70mmhg for now -Turn pt. q3h with foam wedge support -ID on board, reccs - Doxy PO for discharge -Will replace wound vac with [employer] home vac, hopefully today, once placed pt is clear for discharge from our standpoint -Please F/U Heme-Onc and clear with Dr. Nolasco before DC DW Dr Chace Mccormack PGY3
[2017-08-06 11:50] VITALS: BP 82/57; RESP 16; TEMP 98.6; O2SAT 98
[2017-08-06] MEDS ORDERED: Morphine 4 mg/ml ISec IVP STA (13:10)
[2017-08-06] MEDS: Digoxin 250 mcg (0.25 mg) Tab PO SCH (13:13)
--- NOTE | 2017-08-06 13:13 | CP.PCM.PCO ---
Physician Communication Note - Physician Communication Note Physician Communication Note: Thoracic pressure ulcer size [id number]
[2017-08-06 13:18] VITALS: PULSE 65
--- NOTE | 2017-08-06 13:37 | CP.PCM.PN ---
Subjective - Date & Time of Evaluation Date of Evaluation: 08/06/17 Time of Evaluation: 11:15 - Subjective Subjective: Patient is feeling better, no fevers overnight, feels pressure from the wound vacuum. Objective - Vital Signs/Intake and Output Vital Signs (last 24 hours): Temp Pulse Resp BP Pulse Ox 98.7 F 84 18 76/52 L 97 08/06/17 06:00 08/06/17 06:00 08/06/17 06:00 08/06/17 06:00 08/06/17 06:00 Intake and Output: 08/06/17 08/06/17 06:59 18:59 Intake Total 0 Output Total 400 Balance -400 - Medications Medications: Current Medications Atenolol (Tenormin) 12.5 mg PO DAILY [facility] Last Admin: 08/05/17 09:31 Dose: 12.5 mg Cyanocobalamin (Vitamin B12 100 Mcg Tab) 100 mcg PO DAILY [facility] Digoxin (Lanoxin) 0.25 mg PO 1400 [facility] Last Admin: 08/05/17 15:03 Dose: 0.25 mg Cefazolin Sodium 2 gm/ Sodium (Chloride) 100 mls @ 200 mls/hr IVPB Q8 [facility] PRN Reason: Protocol Last Admin: 08/06/17 05:55 Dose: 200 mls/hr Mirtazapine (Remeron) 22.5 mg PO HS [facility] Last Admin: 08/05/17 21:08 Dose: 22.5 mg Morphine Sulfate (Morphine) 4 mg IVP Q4H PRN PRN Reason: Pain, moderate (4-7) Last Admin: 08/06/17 03:01 Dose: 4 mg Oxycodone/Acetaminophen (Percocet 10/325 Mg Tab) 1 tab PO Q6H PRN PRN Reason: Pain, severe (8-10) Last Admin: 08/03/17 03:07 Dose: 1 tab Verapamil HCl (Verapamil Inj) 2.5 mg IVP Q6H PRN PRN Reason: for Heart rate >130 Last Admin: 08/02/17 18:27 Dose: 2.5 mg - Labs Labs: 08/04/17 06:00 08/03/17 06:30 PT 15.2 SECONDS (9.4-12.5) H 08/02/17 13:15 INR 1.37 (0.93-1.08) H 08/02/17 13:15 APTT 35.6 Seconds (25.1-36.5) 08/02/17 13:15 - Constitutional Appears: Cachectic, Chronically Ill - Head Exam Head Exam: NORMAL INSPECTION - Neck Exam Neck Exam: absent: Meningismus - Respiratory Exam Respiratory Exam: Decreased Breath Sounds - Cardiovascular Exam Cardiovascular Exam: +S1, +S2 - GI/Abdominal Exam GI & Abdominal Exam: Soft. absent: Tenderness - Back Exam Additional comments: wound vacuum in place on the posterior thoracic area Assessment and Plan - Assessment and Plan (Free Text) Plan: assessment R/O sepsis due to thoracic area soft tissue infection (re-recurrence), now growing MSSA S/P wound vacuum placement - history of sepsis due to thoracic area soft tissue infection (recurrence) with methicillin-resistant coagulase negative staph (bacteremia with this as well), Pseudomonas, Acinetobacter with no evidence of vertebral osteomyelitis on MRI (2016); previously the abscess had MRSA and E. faecalis history of C. diff associated diarrhea history of intra-abdominal infection/colitis history of Acute sigmoid diverticulitis with abscess formation S/P resection and colostomy placement Waldenstrom's Macroglobinemia currently on chemotherapy atrial fibrillation on anticoagulation Plan on Cefazolin; reviewed wound cx results - patient can be switched to PO doxycycline for 2-3 weeks on discharge will continue to monitor clinically while the patient is in the hospital
--- NOTE | 2017-08-06 13:40 | PN ---
DATE: 08/06/2017 LOCATION: The patient is in room 378, bed 2. REASON FOR CONSULTATION AND FOLLOWUP: Atrial fibrillation with rapid ventricular rate. SUBJECTIVE: The patient is lying flat in bed without chest pain, shortness of breath, or palpitations. PHYSICAL EXAMINATION: VITAL SIGNS: Blood pressure of 100/57, respirations of 18, pulse of 83, and temperature of 98.6. HEENT: Head is normocephalic. Eyes; pupils are normal. Conjunctivae pale. NECK: JVP low. Carotid equal. THORAX: AP diameter normal. LUNGS: Clear. CARDIOVASCULAR: S1 and S2. ABDOMEN: Soft and nontender. No organomegaly. Bowel sounds are normal. EXTREMITIES: No clubbing and no cyanosis. LABORATORY DATA: Shows WBC of 2.2, hemoglobin of 6.7, hematocrit of 21.1, and platelets of 29. Sodium of 137, potassium of 3.6, BUN of 20, and creatinine 0.8. Calcium of 8.7 and total bilirubin of 2.0. AST of 17 and ALT of 20. DIAGNOSES: Atrial fibrillation initially rapid rate, but now the rate is controlled, severe anemia and thrombocytopenia, leukopenia, Waldenstrom macroglobulinemia, paraspinal abscess, sepsis, history of decreased left ventricular function, right ventricular systolic pressure 90 mmHg suggestive of severe pulmonary hypertension, severe tricuspid regurgitation, severe aortic regurgitation, moderate aortic stenosis, and normal coronaries. PLAN: The patient is on digoxin 0.25 daily, atenolol 12.5 mg p.o. daily, and Ancef 2 grams IV q. 8 hours. We will continue present therapy and we will follow. Driss Lawrence MD
[2017-08-06 14:52] VITALS: PULSE 84
--- NOTE | 2017-08-09 09:17 | DS ---
HISTORY OF PRESENT ILLNESS: The patient is a 52-year-old seen and examined. He was admitted because of increasing swelling and bleeding from his wound that he had I&D done on previous admission. He is doing well, seen by Dr. Nolasco, has received 3 blood transfusion and got 3 Neupogen shots. PHYSICAL EXAMINATION: GENERAL: He is awake, alert, oriented, communicative. VITAL SIGNS: Afebrile, pulse 65, respirations 16 and blood pressure 92/57. LUNGS: Bilateral fair airflow. No rhonchi or crackles. HEART: S1 and S2 audible. ABDOMEN: Soft with colostomy in place. NEUROLOGIC: He is awake, alert, oriented and communicative. Able to move all extremities. He has paraspinal thoracic area wound, has wound VAC. LABORATORY DATA: His IgM has been more than 2000. ASSESSMENT AND PLAN: 1. Paraspinal wound drainage from the paraspinal thoracic ulcer and growing Staphylococcus aureus. 2. Waldenstrom's macro gammaglobulinemia. 3. Paroxysmal atrial fibrillation. 4. Sacral pressure ulcer. 5. Pancytopenia. PLAN: The patient is being discharged home on doxycycline 100 twice a day for 2 weeks and he is given prescription of oxycodone 10 mg q.4 hours p.r.n. and he is given MS Contin 30 mg twice a day and he will be followed up by visiting nurse for his wound VAC. Pepito Gavin MD
== END 2017-08-06 16:56 | disposition home or self-care (01) | DRG 862 ==
LOC: ED 11:38 → ERH 13:12 → 2RNO 17:29 → 3RSO 08-03 11:28
PROVIDERS: ADMIT Internal Medicine; ATTEND Internal Medicine
PROC: 30233N1 Transfusion of Nonautologous Red Blood Cells into Peripheral Vein, Percutaneous Approach (ICD-10-PCS; principal; 2017-08-02)
DX: T81.4XXA Infection following a procedure, initial encounter (principal); A41.9 Sepsis, unspecified organism; B95.61 Methicillin susceptible Staphylococcus aureus infection as the cause of diseases classified elsewhere; D61.818 Other pancytopenia; L89.151 Pressure ulcer of sacral region, stage 1; C88.0 Waldenstrom macroglobulinemia; I11.0 Hypertensive heart disease with heart failure; I50.9 Heart failure, unspecified; I42.9 Cardiomyopathy, unspecified; L98.429 Non-pressure chronic ulcer of back with unspecified severity; I08.2 Rheumatic disorders of both aortic and tricuspid valves; I48.2 Chronic atrial fibrillation; J44.9 Chronic obstructive pulmonary disease, unspecified; G89.29 Other chronic pain; M54.9 Dorsalgia, unspecified; I25.10 Atherosclerotic heart disease of native coronary artery without angina pectoris; I27.20 Pulmonary hypertension, unspecified; Z66 Do not resuscitate; Z74.01 Bed confinement status; Z93.3 Colostomy status; Y83.8 Other surgical procedures as the cause of abnormal reaction of the patient, or of later complication, without mention of misadventure at the time of the procedure; Z79.01 Long term (current) use of anticoagulants; Z98.1 Arthrodesis status; Z87.891 Personal history of nicotine dependence

== ENCOUNTER 2017-09-01 12:28 | Inpatient (IN) | payer MEDICARE, OTHER ==
--- NOTE | 2017-09-01 12:36 | ED PDOC ---
Arrival/HPI - General Time Seen by Provider: 09/01/17 12:35 - History of Present Illness Narrative History of Present Illness (Text): 09/01/17 12:36 Td Garcia is a 52 year old male, whose past medical history includes afib, CHF, hypertension, COPD, and Waldenstroms macroglobulinemia, bed bound, presenting after being called by his oncologist to come to ED for anemia. He reports last transfusion was Wednesday (5 days ago). Reports that last blood work was yesterday. Reports wound vac for non-healing back wound. Complaining of chronic pain. No new complaints. Patient currently denies any chest pain, sob , lightheadedness, dizziness or fever. PMD: Dr. Gavin Past Medical History - Infectious Disease Hx of Infectious Diseases: None - Cardiac Hx Cardiac Disorders: Yes Hx Congestive Heart Failure: Yes Hx Hypertension: Yes - Pulmonary Hx Respiratory Disorders: Yes Hx Chronic Obstructive Pulmonary Disease (COPD): Yes - Neurological Hx Neurological Disorder: No Hx Transient Ischemic Attacks (TIA): No - HEENT Hx HEENT Disorder: No Hx Blind: No Hx Cataracts: No Hx Deafness: No Hx Difficulty Chewing: No Hx Epistaxis: No Hx Glaucoma: No Hx Macular Degeneration: No - Renal Hx Renal Disorder: No Hx Renal Failure: No - Endocrine/Metabolic Hx Endocrine Disorders: No Hx Diabetes Mellitus Type 1: No Hx Diabetes Mellitus Type 2: No - Hematological/Oncological Hx Blood Disorders: Yes Hx Cancer: Yes (Blood Cancer as per patient) Hx Chemotherapy: Yes - Integumentary Hx Dermatological Disorder: Yes Hx Basal Cell Carcinoma: No Hx Eczema: No Hx Melanoma: No Hx Psoriasis: No Hx Squamous Cell Carcinoma: No Other/Comment: cyst removed from back - Musculoskeletal/Rheumatological Hx Musculoskeletal Disorders: Yes Hx Falls: Yes (past) - Gastrointestinal Hx Gastrointestinal Disorders: Yes (colostomy) Hx Colostomy: Yes - Genitourinary/Gynecological Hx Genitourinary Disorders: No Hx Reproductive Disorders: No - Psychiatric Hx Psychophysiologic Disorder: No Hx Emotional Abuse: No Hx Physical Abuse: No Hx Substance Use: No - Surgical History Other/Comment: Colostomy, cyst removed from back - Anesthesia Hx Anesthesia: Yes Hx Anesthesia Reactions: No Hx Malignant Hyperthermia: No - Suicidal Assessment Feels Threatened In Home Enviroment: No Family/Social History Family/Social History: No Known Family HX Smoking Status: Never Smoked Hx Alcohol Use: No Hx Substance Use: No Allergies/Home Meds Allergies/Adverse Reactions: Allergies No Known Allergies Allergy (Verified 08/02/17 14:14) Home Medications: Home Meds Medication Instructions Recorded Confirmed Carvedilol [Coreg] 3.125 mg PO DAILY 06/03/17 08/02/17 LORazepam [Ativan] 0.5 mg PO HS 06/03/17 08/02/17 Oxycodone HCl/Acetaminophen 2 tab PO Q4H PRN 06/22/17 08/02/17 [Oxycodone-Acetaminophen 5-325] Review of Systems - Physician Review All systems were reviewed & negative as marked: Yes - Review of Systems Constitutional: Fatigue (chronic) Respiratory: absent: SOB, Cough, Sputum, Wheezing Cardiovascular: Other (draining back wound). absent: Chest Pain Gastrointestinal: absent: Abdominal Pain, Constipation, Diarrhea, Nausea, Vomiting Genitourinary Male: absent: Dysuria Musculoskeletal: Arthralgias (chronic) Neurological: absent: Headache, Dizziness, Focal Weakness, Speech Changes Physical Exam Vital Signs Temp Pulse Resp BP Pulse Ox 09/01/17 12:29 97.7 F 103 H 18 91/55 L 95 Temperature: Afebrile Blood Pressure: Hypotensive Pulse: Tachycardic Respiratory Rate: Normal Appearance: Positive for: Cachectic, Other (chronically ill) Pain Distress: Mild Mental Status: Positive for: Alert and Oriented X 3 - Systems Exam Head: Present: Atraumatic, Normocephalic Pupils: Present: PERRL Extroacular Muscles: Present: EOMI Conjunctiva: Present: Normal Neck: Present: Normal Range of Motion. No: Meningeal Signs Respiratory/Chest: Present: Clear to Auscultation, Good Air Exchange. No: Respiratory Distress, Accessory Muscle Use Cardiovascular: Present: Irregular Rhythm, Tachycardic Abdomen: No: Tenderness, Distention Lower Extremity: Present: Other (moving extremities x 4) Neurological: Present: GCS=15, CN II-XII Intact, Speech Normal Psychiatric: Present: Alert, Oriented x 3 Medical Decision Making ED Course and Treatment: 09/01/17 12:49 --labs and transfusion --IVF, pain medication --hematology consult 09/01/17 13:55 Hgb:4.9 and platelets 17. 2 units PRBCs transfusion ordered. Consulted Dr. Nolasco and covering MD Dr. Varela who will review chart and advise re low platelets. Admitted to Dr. Gavin - Lab Interpretations Lab Results: 09/01/17 12:40 09/01/17 12:40 Lab Results 09/01/17 12:40: WBC 0.8 L* D, RBC 1.57 L, Hgb 4.9 L*, Hct 16.2 L*, MCV 103.2 D , MCH 31.2, MCHC 30.2 L, RDW 20.6 H, Plt Count 17 L*, MPV 9.4, Gran % 71.1 H, Lymph % (Auto) 27.6, Archer % (Auto) 1.3, Eos % (Auto) 0.0 L, Baso % (Auto) 0.0, Gran # 0.54 L, Lymph # 0.2 L, Archer # 0.0 L, Eos # 0.0, Baso # 0.00 09/01/17 12:40: Blood Type Pending, Antibody Screen Pending, Crossmatch See Detail, BBK History Checked Patient has bt 09/01/17 12:40: Sodium 133, Potassium 4.0, Chloride 96 L, Carbon Dioxide 32, Anion Gap 8 L, BUN 18, Creatinine 0.7 L, Est GFR ( Amer) > 60, Est GFR ( Non-Af Amer) > 60, Random Glucose 119 H, Calcium 9.0, Total Bilirubin 2.1 H, AST 17, ALT 10, Alkaline Phosphatase 71, Total Protein 8.6 H, Albumin 3.3, Globulin 5.3, Albumin/Globulin Ratio 0.6 L 09/01/17 12:40: PT 16.8 H, INR 1.51 H, APTT 43.1 H - Medication Orders Current Medication Orders: Discontinued Medications Sodium Chloride (Sodium Chloride 0.9%) 1,000 mls @ 999 mls/hr IV .Q1H1M STA Stop: 09/01/17 13:44 Last Admin: 09/01/17 12:54 Dose: 999 mls/hr eMAR Start Stop Document 09/01/17 12:54 SRE (Rec: 09/01/17 12:55 SRE [id number]) Intravenous Solution Start Date 09/01/17 Start Time 12:50 End Date 09/01/17 End time 13:50 Total Infusion Time 60 Morphine Sulfate (Morphine) 6 mg IVP STAT STA Stop: 09/01/17 12:45 Last Admin: 09/01/17 12:55 Dose: 6 mg MAR Pain Assessment Document 09/01/17 12:55 SRE (Rec: 09/01/17 12:56 SRE [id number]) Pain Reassessment Is this a pain reassessment? Yes Sleep Is patient sleeping during reassessment? No Presence of Pain Presence of Pain Yes Pain Scale Used Pain Scale Used Numeric Location Pain Location Body Site Back Description Description Constant IVP Administration Document 09/01/17 12:55 SRE (Rec: 09/01/17 12:56 SRE [id number]) Charges for Administration # of IVP Administrations 1 Disposition/Present on Arrival - Present on Arrival Any Indicators Present on Arrival: No History of DVT/PE: No History of Uncontrolled Diabetes: No Urinary Catheter: No History Surgical Site Infection Following: None - Disposition Have Diagnosis and Disposition been Completed?: Yes Diagnosis: Anemia Disposition: HOSPITALIZED Disposition Time: 13:57 Patient Plan: Admission Condition: FAIR
[2017-09-01 12:40] VITALS: BMI 26.1
[2017-09-01] MEDS ORDERED: Sodium Chloride 0.9% 1,000 ML IV STA (12:44)
[2017-09-01] MEDS ORDERED: Morphine 4 mg/ml ISec IVP STA (12:44)
[2017-09-01 13:12] LABS: ALKALINE PHOSPHATASE 71 U/L (38-126); ALT/SGPT 10 U/L (7-56); AST/SGOT 17 U/L (17-59); BILIRUBIN,TOTAL 2.1 mg/dL (0.2-1.3); BLOOD UREA NITROGEN 18 mg/dL (7-21); CARBON DIOXIDE 32 mmol/L (21-33); CHLORIDE 96 mmol/L (98-107); GFR AFRICAN-AMERICAN > 60; GLUCOSE,RANDOM 119 mg/dL (70-110); SODIUM 133 mmol/L (132-148); TOTAL PROTEIN 8.6 g/dL (5.8-8.3)
[2017-09-01 13:19] LABS: ALB/GLOB RATIO 0.6 (1.1-1.8)
[2017-09-01 13:29] LABS: INR 1.51 (0.93-1.08); PARTIAL THROMBOPLASTIN TIME 43.1 Seconds (25.1-36.5)
[2017-09-01 13:33] LABS: GRAN # 0.54 (1.4-6.5); GRAN % 71.1 % (50.0-68.0); LYMPH # 0.2 (1.2-3.4); LYMPH % 27.6 % (22.0-35.0); MEAN CELL VOLUME 103.2 fl (80.0-105.0); MEAN CORPUSCULAR HEMOGLOBIN 31.2 pg (25.0-35.0); MEAN CORPUSCULAR HGB CONC 30.2 g/dl (31.0-37.0); MEAN PLATELET VOLUME 9.4 fl (7.0-11.0); MONO % 1.3 % (1.0-6.0); RED CELL DISTRIBUTION WIDTH 20.6 % (11.5-14.5)
[2017-09-01 13:37] LABS: HEMATOCRIT 16.2 % (42.0-52.0); PLATELET COUNT 17 10^3/uL (120.0-450.0); WHITE BLOOD COUNT 0.8 10^3/ul (4.5-11.0)
--- NOTE | 2017-09-01 19:15 | CP.PCM.CON ---
History of Present Illness - History of Present Illness History of Present Illness: General Surgery - Dr. Mas 52M well known to the surgical service w/ phx of Waldenstrom Macroglobulinemia, AFib, CAD, chronic back pain/bed bound, sacral wound vac, presenting to ED with anemia. He states that the wound has been care for by home nurse with daily dressing changes, no packing. Pt complains of persistent/unchanged chronic back pain Denies any Nausea/Vomiting, Abdominal pain, Chest pain, Diarrhea, Hematochezia. PMH: Waldenstrom Macroglobulinemia, Afib, CAD, Diverticulitis, Spinal Fxs PSH: Nneka's procedure for perforated diverticulitis in 2014, I&D of back abscess 05/2017 ALL: NKDA SocialHx: Former tobacco use, denies ETOH or recreational drug use Review of Systems - Review of Systems All systems: reviewed and no additional remarkable complaints except - Constitutional Constitutional: As Per HPI Past Patient History - Infectious Disease Hx of Infectious Diseases: None - Past Social History Smoking Status: Never Smoked - CARDIAC Hx Cardiac Disorders: Yes Hx Congestive Heart Failure: Yes Hx Hypertension: Yes - PULMONARY Hx Respiratory Disorders: Yes Hx Chronic Obstructive Pulmonary Disease (COPD): Yes - NEUROLOGICAL Hx Neurological Disorder: No Hx Transient Ischemic Attacks (TIA): No - HEENT Hx HEENT Problems: No Hx Blind: No Hx Cataracts: No Hx Deafness: No Hx Difficulty Chewing: No Hx Epistaxis: No Hx Glaucoma: No Hx Macular Degeneration: No - RENAL Hx Chronic Kidney Disease: No Hx Renal Failure: No - ENDOCRINE/METABOLIC Hx Endocrine Disorders: No Hx Diabetes Mellitus Type 1: No Hx Diabetes Mellitus Type 2: No - HEMATOLOGICAL/ONCOLOGICAL Hx Blood Disorders: Yes Hx Cancer: Yes (Blood Cancer as per patient) Hx Chemotherapy: Yes - INTEGUMENTARY Hx Dermatological Problems: Yes Hx Basil Cell: No Hx Eczema: No Hx Melanoma: No Hx Psoriasis: No Hx Squamous Cell: No Other/Comment: cyst removed from back - MUSCULOSKELETAL/RHEUMATOLOGICAL Hx Musculoskeletal Disorders: Yes Hx Falls: Yes (past) - GASTROINTESTINAL Hx Gastrointestinal Disorders: Yes (colostomy) Hx Colostomy: Yes - GENITOURINARY/GYNECOLOGICAL Hx Genitourinary Disorders: No Hx Reproductive Disorders: No - PSYCHIATRIC Hx Psychophysiologic Disorder: No Hx Emotional Abuse: No Hx Physical Abuse: No Hx Substance Use: No - SURGICAL HISTORY Other/Comment: Colostomy, cyst removed from back - ANESTHESIA Hx Anesthesia: Yes Hx Anesthesia Reactions: No Hx Malignant Hyperthermia: No Meds Allergies/Adverse Reactions: Allergies Allergy/AdvReac Type Severity Reaction Status Date / Time No Known Allergies Allergy Verified 09/01/17 15:05 - Medications Medications: Current Medications Acetaminophen (Tylenol 325mg Tab) 650 mg PO Q6H PRN PRN Reason: Fever >100.4 F Carvedilol (Coreg) 3.125 mg PO DAILY LUZ Digoxin (Lanoxin) 0.125 mg PO 1400 LUZ Lorazepam (Ativan) 0.5 mg PO HS LUZ PRN Reason: Protocol Oxycodone/Acetaminophen (Percocet 5/325 Mg Tab) 2 tab PO Q4H PRN PRN Reason: Pain, moderate (4-7) Stop: 09/04/17 16:28 Physical Exam - Constitutional Appears: Non-toxic, No Acute Distress, Chronically Ill - Head Exam Head Exam: ATRAUMATIC - Eye Exam Eye Exam: EOMI. absent: Scleral icterus - ENT Exam ENT Exam: Mucous Membranes Moist - Respiratory Exam Respiratory Exam: NORMAL BREATHING PATTERN. absent: Accessory Muscle Use, Respiratory Distress - Cardiovascular Exam Cardiovascular Exam: +S1, +S2. absent: Bradycardia, Tachycardia - GI/Abdominal Exam GI & Abdominal Exam: Soft. absent: Distended, Firm, Tenderness - Back Exam Additional comments: decline to let us see the wound - Neurological Exam Neurological exam: Alert - Psychiatric Exam Psychiatric exam: Normal Mood - Skin Skin Exam: Warm Results - Vital Signs Recent Vital Signs: Last Vital Signs Temp 98.8 F 09/01/17 19:05 Pulse 85 09/01/17 19:05 Resp 18 09/01/17 19:05 BP 96/63 L 09/01/17 19:05 Pulse Ox 97 09/01/17 16:15 - Labs Result Diagrams: 09/01/17 12:40 09/01/17 12:40 Assessment & Plan - Assessment and Plan (Free Text) Assessment: 52M presents w/ anemia w/ back wound being treating at home w/ wound vac Plan: - patient did not want the wound vac changed tonight; will change it tomorrow AM and assess the wound at that time - turn patient Q2 - air mattress - local wound care - f/u H/H transfuse PRN - medical management per primary team - further res per Dr. Chace Geiger PGY1
[2017-09-01] MEDS ORDERED: Influenza Vaccine 60 mcg/0.5 mL SYR (4YR UP) IM ONE (20:40)
[2017-09-01] MEDS ORDERED: Pneumococcal 23-Valent Vaccine IM ONE (20:40)
[2017-09-01] MEDS: Oxycodone/Acetaminophen 5/325 mg Tab PO PRN (20:47)
--- NOTE | 2017-09-02 02:09 | HP ---
HISTORY OF PRESENT ILLNESS: The patient is a 52-year-old who was sent by Dr. Nolasco because of his low hemoglobin and has been feeling weak, tired, and dizzy. The patient is usually bedbound. The patient's blood work is being checked by Dr. Nolasco as an outpatient. He had last blood transfusion done 5 days ago, so he had blood work done yesterday, he was told hemoglobin is low and to go to emergency room. PAST MEDICAL HISTORY: Significant for: 1. Pancytopenia. 2. Waldenstrom macroglobulinemia. 3. AFib, currently in sinus rhythm. 4. History of congestive heart failure. 5. History of ruptured diverticula, status post colostomy. 6. History of hypertension, but now hypotensive. 7. Thoracic vertebral abscess, status post I and D and now he has wound VAC. ALLERGIES: HE IS NOT ALLERGIC TO ANY MEDICATIONS. MEDICATIONS AT HOME: He is on: 1. Percocet 10/325 q.6 hours p.r.n. 2. He is on MS Contin 30 mg twice a day. 3. Ativan 0.5 at bedtime. 4. Digoxin 0.125 daily. 5. Coreg 3.125 daily. SOCIAL HISTORY: He is and lives with his son. No history of smoking, drinking, or alcohol use. REVIEW OF SYSTEMS: He has generalized weakness, bedbound. PHYSICAL EXAMINATION: GENERAL: He is awake, alert, oriented, answer appropriately, has generalized weakness, and mostly bedbound. VITAL SIGNS: He is afebrile, pulse 93, respirations 18, and blood pressure 90/48. LUNGS: Bilateral fair airflow. No rhonchi or crackles. HEART: S1 and S2 audible. ABDOMEN: Soft. Colostomy in place. EXTREMITIES: He has wound VAC in his thoracic spine area. NEUROLOGIC: He is awake, alert, oriented, and communicative. LABORATORY DATA: WBC is 0.8, hemoglobin is 4.9, hematocrit is 16, and platelets are 17. PT 16.8 and INR 1.51. Chemistry: Sodium 133, potassium 4.0, chloride 96, CO2 of 32, BUN 18, creatinine 0.7, and blood sugar 119. Total bilirubin 2.1. ASSESSMENT: 1. Symptomatic anemia. 2. Pancytopenia. 3. Thoracic wound, currently has wound vacuum assisted closure. 4. Waldenstrom . The patient is not getting chemotherapy because of his infection. He was under care of Dr. Goldstein who endorsed the case to Dr. Nolasco, who has been following his CBC. PLAN: We will transfuse 2 packed RBCs. We will put him on neutropenic precaution. Dr. Goldstein to evaluate his wound and analgesic as needed. Follow up CBC and CMP in a.m. Pepito Gavin MD
[2017-09-02] MEDS: Oxycodone/Acetaminophen 5/325 mg Tab PO PRN ×3 (04:23→13:26)
[2017-09-02 07:29] LABS: GRAN # 1.19 (1.4-6.5); GRAN % 78.8 % (50.0-68.0); LYMPH # 0.2 (1.2-3.4); LYMPH % 13.9 % (22.0-35.0); MEAN CELL VOLUME 100.6 fl (80.0-105.0); MEAN CORPUSCULAR HEMOGLOBIN 31.4 pg (25.0-35.0); MEAN CORPUSCULAR HGB CONC 31.3 g/dl (31.0-37.0); MEAN PLATELET VOLUME 9.9 fl (7.0-11.0); MONO # 0.1 (0.1-0.6); MONO % 7.3 % (1.0-6.0); RED CELL DISTRIBUTION WIDTH 20.3 % (11.5-14.5)
[2017-09-02 07:39] LABS: WHITE BLOOD COUNT 1.5 10^3/ul (4.5-11.0)
[2017-09-02 07:40] LABS: PLATELET COUNT 15 10^3/uL (120.0-450.0)
[2017-09-02 08:00] LABS: ALB/GLOB RATIO 0.7 (1.1-1.8); ALKALINE PHOSPHATASE 69 U/L (38-126); ALT/SGPT 19 U/L (7-56); AST/SGOT 14 U/L (17-59); BILIRUBIN,TOTAL 2.5 mg/dL (0.2-1.3); BLOOD UREA NITROGEN 15 mg/dL (7-21); CALCIUM 8.5 mg/dL (8.4-10.5); CARBON DIOXIDE 32 mmol/L (21-33); CHLORIDE 98 mmol/L (98-107); GFR AFRICAN-AMERICAN > 60; GLUCOSE,RANDOM 98 mg/dL (70-110); POTASSIUM 4.1 mmol/L (3.6-5.0); SODIUM 135 mmol/L (132-148); TOTAL PROTEIN 7.6 g/dL (5.8-8.3)
--- NOTE | 2017-09-02 11:43 | CP.PCM.PN ---
Subjective - Date & Time of Evaluation Date of Evaluation: 09/02/17 Time of Evaluation: 11:42 - Subjective Subjective: PGY1 Note for Dr. Mas HPI: Patient seen and examined at bedside. Doing well. No complaints at this time. Feels stronger than yesterday. Objective - Vital Signs/Intake and Output Vital Signs (last 24 hours): Temp Pulse Resp BP Pulse Ox 99.1 F 93 H 18 90/50 L 100 09/02/17 06:00 09/02/17 09:12 09/02/17 06:00 09/02/17 09:12 09/02/17 06:00 Intake and Output: 09/02/17 09/02/17 06:59 18:59 Intake Total 1170 240 Output Total 450 300 Balance 720 -60 - Medications Medications: Current Medications Acetaminophen (Tylenol 325mg Tab) 650 mg PO Q6H PRN PRN Reason: Fever >100.4 F Carvedilol (Coreg) 3.125 mg PO DAILY LUZ Last Admin: 09/02/17 09:12 Dose: Not Given Digoxin (Lanoxin) 0.125 mg PO 1400 LUZ Lorazepam (Ativan) 0.5 mg PO HS LUZ PRN Reason: Protocol Last Admin: 09/01/17 22:03 Dose: 0.5 mg Oxycodone/Acetaminophen (Percocet 5/325 Mg Tab) 2 tab PO Q4H PRN PRN Reason: Pain, moderate (4-7) Stop: 09/04/17 16:28 Last Admin: 09/02/17 08:41 Dose: 2 tab - Labs Labs: 09/02/17 06:55 09/02/17 06:55 PT 16.8 SECONDS (9.4-12.5) H 09/01/17 12:40 INR 1.51 (0.93-1.08) H 09/01/17 12:40 APTT 43.1 Seconds (25.1-36.5) H 09/01/17 12:40 - Additional Findings Additional findings: - Constitutional Appears: Non-toxic, No Acute Distress, Chronically Ill - Head Exam Head Exam: ATRAUMATIC - Eye Exam Eye Exam: EOMI. absent: Scleral icterus - ENT Exam ENT Exam: Mucous Membranes Moist - Respiratory Exam Respiratory Exam: NORMAL BREATHING PATTERN. absent: Accessory Muscle Use, Respiratory Distress - Cardiovascular Exam Cardiovascular Exam: +S1, +S2. absent: Bradycardia, Tachycardia - GI/Abdominal Exam GI & Abdominal Exam: Soft. absent: Distended, Firm, Tenderness - Back Exam Additional comments: decline to let us see the wound - Neurological Exam Neurological exam: Alert - Psychiatric Exam Psychiatric exam: Normal Mood Assessment and Plan - Assessment and Plan (Free Text) Assessment: 52M w/ Sacral decub Plan: * replace home wound vac with hospital wound vac * local wound care * air mattress * DW Dr. Chace Philip PGY1
[2017-09-02] MEDS: Digoxin 125 mcg (0.125 mg) Tab PO SCH (13:48)
[2017-09-02] MEDS: Vancomycin 500 mg (Oral/Rectal USE) PO SCH ×2 (13:52→18:06)
[2017-09-02] MEDS: HYDROmorphone 1 mg/ml ISec IVP PRN (18:29)
--- NOTE | 2017-09-02 18:58 | PN ---
DATE: SUBJECTIVE: The patient is a 52-year-old seen and examined, complain of diarrhea. He already emptied two colostomy bag, has watery diarrhea. Denies abdominal pain. Complain of generalized weakness. Complain of back pain. PHYSICAL EXAMINATION: VITAL SIGNS: He is afebrile, pulse 98, respirations 17, and blood pressure 93/58. LUNGS: Bilateral fair airflow. No rhonchi or crackle. HEART: S1 and S2, audible. ABDOMEN: Soft and obese. Colostomy has liquid stool. His back bone has wound VAC. LABORATORY DATA: WBC is 1.5, hemoglobin 5, hematocrit 16, and platelets of 15. Chemistry; sodium 135, potassium 4.1, chloride 98, CO2 32, BUN of 15, creatinine of 0.8, blood sugar of 98. LFTs are within normal limits. ASSESSMENT: 1. Pancytopenia. 2. Diarrhea, rule out Clostridium difficile. 3. History of perforated diverticulum status post colostomy. 4. Waldenstrom's macroglobulinemia. PLAN: We will send stool for Clostridium difficile. We will empirically start him on p.o. vancomycin. We will give him two more blood transfusion awaiting Dr. Nolasco's input and his wound VAC will be removed by surgical team. Pepito Gavin MD
--- NOTE | 2017-09-02 19:11 | CARD ---
APPROVED REPORT EKG Measurement Heart [id number] <Conclusion> Atrial fibrillation with premature ventricular or aberrantly conducted complexes Low voltage QRS ST & T wave abnormality, consider anterior ischemia or digitalis effect Abnormal ECG
[2017-09-03] MEDS: Vancomycin 500 mg (Oral/Rectal USE) PO SCH ×5 (00:21→21:01)
[2017-09-03] MEDS: HYDROmorphone 1 mg/ml ISec IVP PRN ×5 (00:22→21:00)
[2017-09-03 11:28] LABS: GRAN % 83.9 % (50.0-68.0); LYMPH # 0.2 (1.2-3.4); LYMPH % 14.8 % (22.0-35.0); MEAN CELL VOLUME 99.5 fl (80.0-105.0); MEAN CORPUSCULAR HGB CONC 32.1 g/dl (31.0-37.0); MEAN PLATELET VOLUME 9.7 fl (7.0-11.0); MONO % 1.3 % (1.0-6.0); RED CELL DISTRIBUTION WIDTH 20.1 % (11.5-14.5)
[2017-09-03 11:41] LABS: HEMATOCRIT 19.3 % (42.0-52.0); WHITE BLOOD COUNT 1.6 10^3/ul (4.5-11.0)
[2017-09-03 11:42] LABS: PLATELET COUNT 15 10^3/uL (120.0-450.0); PLATELET ESTIMATE LOW (NORMAL)
[2017-09-03] MEDS: Digoxin 125 mcg (0.125 mg) Tab PO SCH (14:43)
--- NOTE | 2017-09-03 17:35 | CP.PCM.CON ---
History of Present Illness - History of Present Illness History of Present Illness: 52 yo man with diagnosis of Waldenstroms macroglobulinemia, s/p several chemotherapies since 2012, most recently on PO Chlorambucil, off all meds since June, now readmitted with progressive pancytopenia, getting transfusions, SubQ neupogen, and wound care. The patient is getting lab work done as an outpatient , remains weak, bedbound managing at home with help from his family. Past Patient History - Infectious Disease Hx of Infectious Diseases: None - Past Social History Smoking Status: Former Smoker - CARDIAC Hx Cardiac Disorders: Yes Hx Cardia Arrhythmia: Yes (AFIB) Hx Congestive Heart Failure: Yes Hx Hypertension: Yes - PULMONARY Hx Respiratory Disorders: Yes (H/O OF SMOKING CIGARETTES) Hx Chronic Obstructive Pulmonary Disease (COPD): Yes - NEUROLOGICAL Hx Neurological Disorder: No Hx Transient Ischemic Attacks (TIA): No - HEENT Hx HEENT Problems: No Hx Blind: No Hx Cataracts: No Hx Deafness: No Hx Difficulty Chewing: No Hx Epistaxis: No Hx Glaucoma: No Hx Macular Degeneration: No - RENAL Hx Chronic Kidney Disease: No Hx Renal Failure: No - ENDOCRINE/METABOLIC Hx Endocrine Disorders: No Hx Diabetes Mellitus Type 1: No Hx Diabetes Mellitus Type 2: No - HEMATOLOGICAL/ONCOLOGICAL Hx Blood Disorders: Yes Hx Anemia: Yes Hx Cancer: Yes (Blood Cancer as per patient WALDENSTROM MACROGLOBULINEMIA (NON HODGKIN'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 08-22-17 BILATERAL LEG EDEMA +4 PATCHY BROWN SPOTS,DRY FLAKY SKIN. COLOSTOMY LEFT - MUSCULOSKELETAL/RHEUMATOLOGICAL Hx Musculoskeletal Disorders: Yes Hx Falls: Yes (past) - GASTROINTESTINAL Hx Gastrointestinal Disorders: Yes (colostomy) Hx Colostomy: Yes Hx Diverticulitis: Yes - GENITOURINARY/GYNECOLOGICAL Hx Genitourinary Disorders: No - PSYCHIATRIC Hx Psychophysiologic Disorder: No Hx Emotional Abuse: No Hx Physical Abuse: No Hx Substance Use: No - SURGICAL HISTORY Hx Surgeries: Yes (CARD CATH) Hx Cardiac Catheterization: Yes Other/Comment: Colostomy, cyst removed from back - ANESTHESIA Hx Anesthesia: Yes Hx Anesthesia Reactions: No Hx Malignant Hyperthermia: No Meds Allergies/Adverse Reactions: Allergies Allergy/AdvReac Type Severity Reaction Status Date / Time No Known Allergies Allergy Verified 09/01/17 15:05 - Medications Medications: Current Medications Acetaminophen (Tylenol 325mg Tab) 650 mg PO Q6H PRN PRN Reason: Fever >100.4 F Carvedilol (Coreg) 3.125 mg PO DAILY [facility] Last Admin: 09/03/17 10:31 Dose: Not Given Digoxin (Lanoxin) 0.125 mg PO 1400 LUZ Last Admin: 09/03/17 14:43 Dose: 0.125 mg Hydromorphone HCl (Dilaudid) 1 mg IVP Q4H PRN PRN Reason: Pain, severe (8-10) Last Admin: 09/03/17 16:53 Dose: 1 mg Lorazepam (Ativan) 0.5 mg PO HS LUZ PRN Reason: Protocol Last Admin: 09/03/17 00:19 Dose: Not Given Vancomycin HCl (Vancocin (Oral/Rectal Use)) 250 mg PO QID LUZ PRN Reason: Protocol Last Admin: 09/03/17 14:43 Dose: 250 mg Results - Vital Signs Recent Vital Signs: Last Vital Signs Temp 98.1 F 09/03/17 15:59 Pulse 87 09/03/17 15:59 Resp 18 09/03/17 15:59 BP 88/61 L 09/03/17 15:59 Pulse Ox 100 09/03/17 05:44 - Labs Result Diagrams: 09/03/17 11:20 09/02/17 06:55 Labs: Laboratory Results - last 24 hr 09/02/17 09/03/17 20:05 11:20 WBC 1.6 L* RBC 1.94 L Hgb 6.2 L* Hct 19.3 L* MCV 99.5 MCH 32.0 MCHC 32.1 RDW 20.1 H Plt Count 15 L* MPV 9.7 Gran % 83.9 H Lymph % (Auto) 14.8 L [place] % (Auto) 1.3 Eos % (Auto) 0.0 L Baso % (Auto) 0.0 Gran # 1.30 L Lymph # 0.2 L [place] # 0.0 L Eos # 0.0 Baso # 0.00 Platelet Evaluation Low Stool Occult Blood Positive H Assessment & Plan - Assessment and Plan (Free Text) Assessment: 52 yo man with advanced Waldenstromc macroglobulinemia, with clinical signs of disease progression, frequent infections and poor wound healing 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 Will check his IgM levels. Overall prognosis is very poor, Dr. Nolasco to discuss further plans, treatment versus ?? palliative care with patient
--- NOTE | 2017-09-03 19:53 | PN ---
DATE: SUBJECTIVE: The patient is 52-year-old, seen and examined, lying in bed, has generalized weakness. No nausea, vomiting. Complain of decreased appetite. Diarrhea seems to be subsiding. PHYSICAL EXAMINATION: VITAL SIGNS: He is afebrile, pulse 67, respirations 18, and blood pressure 88/61. LUNGS: Bilateral fair airflow. No rhonchi or crackle. HEART: S1 and S2, audible. ABDOMEN: Soft. Colostomy is functional, has semisolid stool more so liquid. EXTREMITIES: Bilateral legs dermatitis. LABORATORY DATA: WBC is 1.6, hemoglobin is 6.2, hematocrit is 19.3, and platelets of 115. Chemistry, there is no new chemistry available today. ASSESSMENT: 1. Pancytopenia. 2. Waldenstrom hypergammaglobulinemia. 3. History of hypertension. 4. History of atrial fibrillation. 5. Diarrhea rule out Clostridium difficile. PLAN: The patient will receive 2 blood transfusions. We will keep him on Coreg. He is on Dilaudid 1 mg q. 4 h. p.r.n. He is getting Neupogen. He is on Digoxin and p.o. vancomycin once stool cultures are negative, we will discontinue vancomycin. Follow up CBC and CMP in a.m. Pepito Gavin MD
[2017-09-04] MEDS: HYDROmorphone 1 mg/ml ISec IVP PRN ×6 (02:06→22:22)
[2017-09-04 08:02] LABS: GRAN # 1.28 (1.4-6.5); GRAN % 80.5 % (50.0-68.0); LYMPH # 0.3 (1.2-3.4); LYMPH % 16.4 % (22.0-35.0); MEAN CELL VOLUME 98.6 fl (80.0-105.0); MEAN CORPUSCULAR HEMOGLOBIN 31.2 pg (25.0-35.0); MEAN CORPUSCULAR HGB CONC 31.6 g/dl (31.0-37.0); MEAN PLATELET VOLUME 9.6 fl (7.0-11.0); MONO # 0.1 (0.1-0.6); MONO % 3.1 % (1.0-6.0); RED CELL DISTRIBUTION WIDTH 19.5 % (11.5-14.5)
[2017-09-04 08:18] LABS: ALB/GLOB RATIO 0.7 (1.1-1.8); ALKALINE PHOSPHATASE 70 U/L (38-126); ALT/SGPT 13 U/L (7-56); AST/SGOT 14 U/L (17-59); BILIRUBIN,TOTAL 1.8 mg/dL (0.2-1.3); BLOOD UREA NITROGEN 15 mg/dL (7-21); CALCIUM 8.6 mg/dL (8.4-10.5); CARBON DIOXIDE 28 mmol/L (21-33); CHLORIDE 98 mmol/L (98-107); GFR AFRICAN-AMERICAN > 60; GLUCOSE,RANDOM 101 mg/dL (70-110); POTASSIUM 4.1 mmol/L (3.6-5.0); SODIUM 134 mmol/L (132-148); TOTAL PROTEIN 7.6 g/dL (5.8-8.3)
[2017-09-04 08:27] LABS: HEMATOCRIT 21.5 % (42.0-52.0); WHITE BLOOD COUNT 1.6 10^3/ul (4.5-11.0)
[2017-09-04 08:28] LABS: PLATELET COUNT 14 10^3/uL (120.0-450.0)
[2017-09-04] MEDS: Vancomycin 500 mg (Oral/Rectal USE) PO SCH ×2 (10:06→14:07)
[2017-09-04 12:04] LABS: IMMUNOGLOBULIN G 292.3 mg/dL (700.0-1600.0)
[2017-09-04 13:13] LABS: IMMUNOGLOBULIN M > 2000.0 mg/dL (40.0-230.0)
[2017-09-04] MEDS: Digoxin 125 mcg (0.125 mg) Tab PO SCH (14:06)
[2017-09-04 14:11] VITALS: PULSE 84
[2017-09-04] MEDS: Vancomycin 25 MG/ML PO SCH ×2 (18:32→22:23)
[2017-09-05] MEDS: HYDROmorphone 1 mg/ml ISec IVP PRN ×4 (02:03→14:00)
--- NOTE | 2017-09-05 02:04 | PN ---
DATE: SUBJECTIVE: The patient is 52-year-old, seen and examined. States his diarrhea has subsided. His stool for C diff is negative. Complains of generalized weakness. Complains of back pain. PHYSICAL EXAMINATION VITAL SIGNS: Temperature 99.1, pulse 57, respirations 20, and blood pressure 90/62. LUNGS: Bilateral fair airflow. No rhonchi or crackle. HEART: S1 and S2, audible. ABDOMEN: Soft. Colostomy is functional. LABORATORY DATA: Hemoglobin is 6.8, hematocrit is 21.5 and platelets of 14. Chemistry showed sodium 134, potassium 4.1, chloride 98, CO2 of 20, BUN 15, creatinine 0.7 and blood sugar of 101. Total bili 1.8. IgM is more than 2000. ASSESSMENT: 1. Pancytopenia. 2. Waldenstrom's gammaglobulinemia. 3. Cardiomyopathy. 4. Status post five blood transfusions. 5. Status post colostomy. PLAN: We will transfuse one packed RBC. We will give another dose of Neupogen. If he remains stable and his hemoglobin is above 7, he will be discharged home tomorrow. Pepito Gavin MD
[2017-09-05 06:28] VITALS: O2SAT 99
[2017-09-05 08:24] VITALS: PULSE 93; RESP 20; TEMP 97.9
[2017-09-05 09:53] VITALS: BP 96/60
[2017-09-05] MEDS: Vancomycin 25 MG/ML PO SCH (10:21)
[2017-09-05 12:03] LABS: GRAN # 0.78 (1.4-6.5); LYMPH # 0.3 (1.2-3.4); LYMPH % 23.9 % (22.0-35.0); MEAN CELL VOLUME 97.5 fl (80.0-105.0); MEAN CORPUSCULAR HEMOGLOBIN 32.1 pg (25.0-35.0); MEAN CORPUSCULAR HGB CONC 32.9 g/dl (31.0-37.0); MEAN PLATELET VOLUME 10.6 fl (7.0-11.0); MONO # 0.1 (0.1-0.6); MONO % 7.1 % (1.0-6.0); RED CELL DISTRIBUTION WIDTH 19.8 % (11.5-14.5)
[2017-09-05 12:17] LABS: HEMATOCRIT 23.7 % (42.0-52.0); PLATELET COUNT 16 10^3/uL (120.0-450.0)
[2017-09-05 12:18] LABS: WHITE BLOOD COUNT 1.1 10^3/ul (4.5-11.0)
--- NOTE | 2017-09-06 02:21 | DS ---
The patient is a 52-year-old, seen and examined, lying in bed, seems to be comfortable, offered no complaint, looks depressed. PHYSICAL EXAMINATION: VITAL SIGNS: He is afebrile, pulse 93, respiration 20, blood pressure 96/60. LUNGS: Bilateral fair airflow. No rhonchi or crackle. HEART: S1 and S2 audible. ABDOMEN: Soft. Colostomy is functional, has semi-liquid brownish stool. No blood in stool. NEUROLOGIC: The patient is awake and alert. EXTREMITIES: Bilateral leg chronic stasis dermatitis, able to move legs. LABORATORY EXAM: WBC is 1.1, hemoglobin 7.8, hematocrit 23.7, platelet of 16. Chemistry: Sodium 134, potassium 4.1, chloride 98, CO2 of 28, BUN 15, creatinine 0.7, blood sugar of 101. ASSESSMENT AND PLAN: 1. Pancytopenia. 2. Waldenstrom's 3. History of hypertension, now currently hypotensive. 4. Thoracic wound, on wound VAC. 5. Deconditioning and difficulty walking. PLAN: The patient is clinically okay for now. He wants to go home. We will discharge him home and he will be followed by Dr. Nolasco as outpatient. He is getting weekly blood work by Dr. Nolasco, and he will resume his medication as prior to admission that include digoxin, Coreg, Remeron and Percocet as needed. Pepito Gavin MD
== END 2017-09-05 15:30 | disposition home health service (06) | DRG 809 ==
LOC: ED 12:28 → ERH 13:40 → 3RSO 16:13 → 5RSO 09-03 22:26
PROVIDERS: ADMIT Internal Medicine; ATTEND Internal Medicine
PROC: 30233N1 Transfusion of Nonautologous Red Blood Cells into Peripheral Vein, Percutaneous Approach (ICD-10-PCS; principal; 2017-09-01)
DX: D61.818 Other pancytopenia (principal); I42.9 Cardiomyopathy, unspecified; M46.24 Osteomyelitis of vertebra, thoracic region; C88.0 Waldenstrom macroglobulinemia; L89.159 Pressure ulcer of sacral region, unspecified stage; I11.0 Hypertensive heart disease with heart failure; I50.9 Heart failure, unspecified; I95.9 Hypotension, unspecified; I48.91 Unspecified atrial fibrillation; I25.10 Atherosclerotic heart disease of native coronary artery without angina pectoris; R19.7 Diarrhea, unspecified; G89.29 Other chronic pain; M54.9 Dorsalgia, unspecified; Z93.3 Colostomy status; Z74.01 Bed confinement status; Z87.891 Personal history of nicotine dependence

== ENCOUNTER 2017-09-17 22:25 | Inpatient (IN) | payer MEDICARE, OTHER ==
[2017-09-17 22:26] VITALS: BMI 26.1
--- NOTE | 2017-09-17 22:29 | ED PDOC ---
Arrival/HPI - General Time Seen by Provider: 09/17/17 22:26 Historian: Patient - History of Present Illness Narrative History of Present Illness (Text): 09/17/17 22:28 52 y/o male, pmh including a.fibb/diverticulitis/mesenteric ischemia/anemia/chf/ ruptured diverticula/htn/panctopenia/waldenstrom macroglobulinemia, nkda, c/o fatigue and back pain with bleeding thoracic pressure ulcer 1 day. Pt. stated he was in the hospital earlier today due to his anemia, received 2 units of blood, request to have wound dressing change, went home and started to bleed which he called the ambulance. Pt. stated that he has pain on the thoracic pressure ulcer region and with pain plus fatigue, no nausea or vomiting, no chest pain or shortness of breath, no night sweat, no other medical or psychological complaints. Past Medical History - Provider Review Nursing Documentation Reviewed: Yes - Infectious Disease Hx of Infectious Diseases: None - Cardiac Hx Cardiac Arrhythmia: Yes (AFIB) - Pulmonary Hx Respiratory Disorders: Yes (H/O OF SMOKING CIGARETTES) - Neurological Hx Neurological Disorder: No Hx Transient Ischemic Attacks (TIA): No - HEENT Hx HEENT Disorder: No Hx Blind: No Hx Cataracts: No Hx Deafness: No Hx Difficulty Chewing: No Hx Epistaxis: No Hx Glaucoma: No Hx Macular Degeneration: No - Renal Hx Renal Disorder: No Hx Renal Failure: No - Endocrine/Metabolic Hx Endocrine Disorders: No Hx Diabetes Mellitus Type 1: No Hx Diabetes Mellitus Type 2: No - Hematological/Oncological Hx Anemia: Yes Hx Cancer: Yes (Blood Cancer as per patient WALDENSTROM MACROGLOBULINEMIA (NON HODGKIN'S L)) - Integumentary Other/Comment: cyst removed from back I/D. 08-22-17 BILATERAL LEG EDEMA +4 PATCHY BROWN SPOTS,DRY FLAKY SKIN. COLOSTOMY LEFT - Musculoskeletal/Rheumatological Hx Musculoskeletal Disorders: Yes Hx Falls: Yes (past) - Gastrointestinal Hx Gastrointestinal Disorders: Yes (colostomy) Hx Colostomy: Yes Hx Diverticulitis: Yes - Genitourinary/Gynecological Hx Genitourinary Disorders: No - Psychiatric Hx Psychophysiologic Disorder: No Hx Emotional Abuse: No Hx Physical Abuse: No Hx Substance Use: No - Surgical History Hx Cardiac Catheterization: Yes - Anesthesia Hx Anesthesia: Yes Hx Anesthesia Reactions: No Hx Malignant Hyperthermia: No - Suicidal Assessment Feels Threatened In Home Enviroment: No Family/Social History - Physician Review Nursing Documentation Reviewed: Yes Family/Social History: Unknown Family HX Smoking Status: Former Smoker Hx Alcohol Use: No Hx Substance Use: No Allergies/Home Meds Allergies/Adverse Reactions: Allergies No Known Allergies Allergy (Verified 09/01/17 15:05) Home Medications: Home Meds Medication Instructions Recorded Confirmed Carvedilol [Coreg] 3.125 mg PO DAILY 06/03/17 09/01/17 LORazepam [Ativan] 0.5 mg PO HS 06/03/17 09/01/17 Oxycodone HCl/Acetaminophen 2 tab PO Q4H PRN 06/22/17 09/01/17 [Oxycodone-Acetaminophen 5-325] Review of Systems - Review of Systems Constitutional: Fatigue. absent: Fevers Eyes: absent: Vision Changes ENT: absent: Hearing Changes Respiratory: absent: SOB, Cough Cardiovascular: absent: Chest Pain Gastrointestinal: absent: Abdominal Pain, Nausea, Vomiting Musculoskeletal: Back Pain. absent: Arthralgias, Myalgias Skin: Skin Lesions, Ulcer. absent: Rash, Pruritis, Laceration, Abscess, Cellulitis Neurological: absent: Headache Physical Exam Vital Signs Temp Pulse Resp BP Pulse Ox 09/18/17 03:48 109 H 18 108/76 98 09/18/17 03:25 85 19 81/53 L 97 09/18/17 03:05 98.0 F 84 17 75/54 L 09/18/17 02:30 97.9 F 80 18 83/52 L 96 09/18/17 02:20 97.9 F 85 18 83/52 L 09/18/17 01:56 98.0 F 89 19 81/49 L 09/18/17 00:46 95 H 18 79/55 L 97 09/17/17 23:01 98.0 F 125 H 21 86/51 L 98 Pain Distress: Severe - Systems Exam Head: Present: Atraumatic, Normocephalic Pupils: Present: PERRL Extroacular Muscles: Present: EOMI Conjunctiva: Present: Normal Mouth: Present: Moist Mucous Membranes Neck: Present: Normal Range of Motion Respiratory/Chest: Present: Clear to Auscultation, Good Air Exchange. No: Respiratory Distress, Accessory Muscle Use Cardiovascular: Present: Regular Rate and Rhythm, Normal S1, S2. No: Murmurs Abdomen: Present: Normal Bowel Sounds, Other (+colostomy bag noted, pressure ulcer noted approx. 3cm diameter on the lateral thoracic spine). No: Tenderness , Distention, Peritoneal Signs Back: Present: Normal Inspection. No: CVA Tenderness, Midline Tenderness Upper Extremity: Present: Normal Inspection. No: Cyanosis, Edema Lower Extremity: Present: Normal Inspection, NORMAL PULSES, Normal ROM, Neurovascularly Intact, Capillary Refill < 2 s. No: Edema, Deformity Neurological: Present: GCS=15, Speech Normal, Motor Func Grossly Intact, Gait Normal, Memory Normal Skin: Present: Warm, Dry, Normal Color. No: Rashes Psychiatric: Present: Alert, Oriented x 3, Normal Insight, Normal Concentration Medical Decision Making ED Course and Treatment: 09/17/17 22:49 -labs/type and screen -ekg -cxr -Pt. took morphine po prior to the arrival -Observe and reassess 09/17/17 23:48 -There is no active bleeding wound from his back. -Guaiac stool test is negative. -Pt. is tachycardic and hypotensive, spoke to Dr. Wu discussed about the patient has CHF and recommend 500cc bolus IV with 2 units of PRBC. -Labs are significant for hgb 5.9/ bun 38/bnp 8388. I discussed with DR. Wu and he evaluated the patient, he say to give 2 units of PRBC and understands he has CHF -I spoke to the pmd Dr. Gavin, discussed about the labs and vital signs , stated that the baseline BP is around 80s/50s, agreed on admission to her service. 09/18/17 01:13 -Pt. declined chest xray. -I spoke to Dr. Blanca Hernandez (ICU on [facility]), discussed about the labs/radiology result, she will evaluate the patient. 09/18/17 01:32 -Dr. Blanca Hernandez evaluated the patient, stated that the patient can go to the telemetry floor with no ICU indicated after she and the regional medical director spoke to the firer [employer]/oncologist which the patient is at the baseline. 09/18/17 01:56 -I spoke to Dr. Wu and he evaluated the patient, agreed that the patient can go to the telemetry floor and agreed on the admission order as he is busy with critical procedures/intubation. 09/18/17 02:13 -Pt. request IV morphine, discussed with DR. Wu, agreed to give 2mg IV due to the low BP for his chronic pain - Critical Care Critical Care Minutes: 30 minutes Critical Care Time: Unstable Narrative Critical Care (Text): 09/24/17 12:02 hypotension, blood transfusion, multiple visits to the stretcher during the course of stay due to CHF and anemia but needs transfusion, consulting with the pmd and ICU special education para professional. - Lab Interpretations Lab Results: 09/21/17 06:45 09/21/17 06:45 Lab Results 09/21/17 06:45: Sodium 136, Potassium 4.5, Chloride 96 L, Carbon Dioxide 29, Anion Gap 15, BUN 17, Creatinine 0.7 L, Est GFR ( Amer) > 60, Est GFR ( Non-Af Amer) > 60, Random Glucose 108, Calcium 8.6, Total Bilirubin 2.4 H, AST 12 L D, ALT 19, Alkaline Phosphatase 64, Total Protein 7.9, Albumin 3.0, Globulin 5.0, Albumin/Globulin Ratio 0.6 L 09/21/17 06:45: WBC 0.8 L* D, RBC 2.10 L, Hgb 6.2 L*, Hct 20.0 L*, MCV 95.2, MCH 29.5, MCHC 31.0, RDW 19.5 H, Plt Count 15 L*, MPV 9.4, Gran % 76.9 H, Lymph % (Auto) 14.6 L, [place] % (Auto) 8.5 H, Eos % (Auto) 0.0 L, Baso % (Auto) 0.0, Gran # 0.63 L, Lymph # 0.1 L, [place] # 0.1, Eos # 0.0, Baso # 0.00 09/20/17 17:45: Blood Type A NEGATIVE, Antibody Screen Negative, Crossmatch See Detail, BBK History Checked Patient has bt 09/20/17 13:40: Sodium 134, Potassium 4.2, Chloride 97 L, Carbon Dioxide 30, Anion Gap 11, BUN 19, Creatinine 0.8, Est GFR ( Amer) > 60, Est GFR (Non- Af Amer) > 60, Random Glucose 125 H, Calcium 8.8 01/01/18 13:40: WBC 0.6 L* D, RBC 1.68 L, Hgb 5.2 L*, Hct 16.4 L*, MCV 97.6, MCH 31.0, MCHC 31.7, RDW 19.0 H, Plt Count 17 L*, MPV 10.2, Gran % 77.9 H, Lymph % (Auto) 13.6 L, [place] % (Auto) 8.5 H, Eos % (Auto) 0.0 L, Baso % (Auto) 0.0, Gran # 0.46 L, Lymph # 0.1 L, [place] # 0.1, Eos # 0.0, Baso # 0.00 09/19/17 07:20: Sodium Cancelled, Potassium Cancelled, Chloride Cancelled, Carbon Dioxide Cancelled, Anion Gap Cancelled, BUN Cancelled, Creatinine Cancelled, Est GFR ( Amer) Cancelled, Est GFR (Non-Af Amer) Cancelled, Random Glucose Cancelled, Calcium Cancelled, Total Bilirubin Cancelled, AST Cancelled, ALT Cancelled, Alkaline Phosphatase Cancelled, Total Protein Cancelled, Albumin Cancelled, Globulin Cancelled, Albumin/Globulin Ratio Cancelled 09/19/17 05:00: WBC Cancelled, RBC Cancelled, Hgb Cancelled, Hct Cancelled, MCV Cancelled, MCH Cancelled, MCHC Cancelled, RDW Cancelled, Plt Count Cancelled, MPV Cancelled, Gran % Cancelled, Lymph % (Auto) Cancelled, [place] % (Auto) Cancelled, Eos % (Auto) Cancelled, Baso % (Auto) Cancelled, Gran # Cancelled, Lymph # Cancelled, [place] # Cancelled, Eos # Cancelled, Baso # Cancelled 09/17/17 23:00: Blood Type A NEGATIVE, Antibody Screen Negative, Crossmatch See Detail, BBK History Checked Patient has bt 09/17/17 23:00: Digoxin 0.6 L 09/17/17 23:00: WBC 0.8 L* D, RBC 1.85 L, Hgb 5.9 L*, Hct 18.1 L*, MCV 97.8 D, MCH 31.9, MCHC 32.6, RDW 20.0 H, Plt Count 20 L*, MPV 11.1 H, Gran % 86.9 H, Lymph % (Auto) 11.9 L, [place] % (Auto) 1.2, Eos % (Auto) 0.0 L, Baso % (Auto) 0.0 , Gran # 0.73 L, Lymph # 0.1 L, [place] # 0.0 L, Eos # 0.0, Baso # 0.00 09/17/17 23:00: Sodium 132, Potassium 4.3, Chloride 93 L, Carbon Dioxide 26, Anion Gap 18, BUN 38 H, Creatinine 0.9, Est GFR ( Amer) > 60, Est GFR ( Non-Af Amer) > 60, Random Glucose 257 H, Calcium 9.3, Magnesium 2.0, Total Bilirubin 2.1 H, AST 16 L, ALT 18, Alkaline Phosphatase 85, NT-Pro-B Natriuret Pep 8380 H, Total Protein 9.4 H, Albumin 3.6, Globulin 5.9, Albumin/Globulin Ratio 0.6 L 09/17/17 23:00: PT 16.0 H, INR 1.46 H, APTT 42.7 H - Medication Orders Current Medication Orders: Carvedilol (Coreg) 3.125 mg PO DAILY [facility] Last Admin: 09/24/17 09:41 Dose: MAR Pulse and Blood Pressure Document 09/24/17 09:41 CV (Rec: 09/24/17 09:41 CV [id number]) Pulse Pulse Rate (60-90) 98 Blood Pressure Blood Pressure (100/60-150/90) 89/57 Digoxin (Lanoxin) 0.125 mg PO DAILY [facility] Last Admin: 09/24/17 09:40 Dose: 0.125 mg MAR Apical Pulse Rate Document 09/24/17 09:40 CV (Rec: 09/24/17 09:41 CV [id number]) Apical Pulse Rate Apical Pulse Rate (60-90 beats/min) 98 Lorazepam (Ativan) 0.5 mg PO [facility] PRN Reason: Protocol Last Admin: 09/23/17 22:52 Dose: 0.5 mg Behavioural Document 09/23/17 22:52 [facility] (Rec: 09/23/17 22:53 [id number]) Maintenance Maintenance Dose Yes Re-Assess: Reassess Psych Meds Document 09/23/17 23:52 [facility] (Rec: 09/24/17 02:01 [facility][id number]) Reassess Psych Med Effective Mirtazapine (Remeron) 22.5 mg PO HS [facility]Z Last Admin: 09/23/17 22:52 Dose: 22.5 mg Morphine Sulfate (Morphine) 4 mg IVP Q3H PRN PRN Reason: Pain, moderate (4-7) Last Admin: 09/24/17 09:40 Dose: 4 mg MAR Pain Assessment Document 09/24/17 09:40 CV (Rec: 09/24/17 09:40 CV [id number]) Pain Reassessment Is this a pain reassessment? No Presence of Pain Presence of Pain Yes Pain Scale Used Pain Scale Used Numeric IVP Administration Document 09/24/17 09:40 CV (Rec: 09/24/17 09:40 CV [id number]) Charges for Administration # of IVP Administrations 1 Ondansetron HCl (Zofran Inj) 4 mg IVP Q6H PRN PRN Reason: Nausea/Vomiting Last Admin: 09/24/17 06:25 Dose: 4 mg IVP Administration Document 09/24/17 06:25 [facility] (Rec: 09/24/17 06:25 [id number] Charges for Administration # of IVP Administrations 1 Discontinued Medications Collagen (Avitene) 1 pow MM ONCE ONE Stop: 09/18/17 13:24 Last Admin: 09/18/17 14:35 Dose: 1 pow Furosemide (Lasix) 20 mg IVP ONCE ONE Stop: 09/20/17 17:14 Sodium Chloride (Sodium Chloride 0.9%) 500 mls @ 999 mls/hr IV .Q31M STA Stop: 09/17/17 23:41 Last Admin: 09/18/17 00:43 Dose: 999 mls/hr eMAR Start Stop Document 09/18/17 00:43 [email or web address] (Rec: 09/18/17 00:43 [email or web address] [id number]) Intravenous Solution Start Date 09/18/17 Start Time 00:43 End Date 09/18/17 Morphine Sulfate (Morphine) 2 mg IVP STAT STA Stop: 09/18/17 02:14 Last Admin: 09/18/17 02:28 Dose: 2 mg MAR Pain Assessment Document 09/18/17 02:28 [email or web address] (Rec: 09/18/17 02:29 [email or web address] [id number]) Pain Reassessment Is this a pain reassessment? Yes Sleep Is patient sleeping during reassessment? No Presence of Pain Presence of Pain Yes Pain Scale Used Pain Scale Used Numeric Location Pain Location Body Site Back Description Description Constant Intensity of Pain at present 9 Pain Behavior Facial Grimacing Aggravating Factors Changing Position Alleviating Factors/Management Position Change Techniques Alleviating Factors Medication IVP Administration Document 09/18/17 02:28 [email or web address] (Rec: 09/18/17 02:29 [email or web address] [id number]) Charges for Administration # of IVP Administrations 1 Morphine Sulfate (Morphine) 4 mg IVP STAT STA Stop: 09/18/17 04:32 Last Admin: 09/18/17 05:20 Dose: 4 mg MAR Pain Assessment Document 09/18/17 05:20 FM (Rec: 09/18/17 05:21 FM [id number]) Pain Reassessment Is this a pain reassessment? No Sleep Is patient sleeping during reassessment? No Pain Scale Used Pain Scale Used verbal Location Pain Location Body Site Generalized Description Description Constant Intensity of Pain at present 8 Acceptable Level of Pain 0 IVP Administration Document 09/18/17 05:20 FM (Rec: 09/18/17 05:21 FM [id number]) Charges for Administration # of IVP Administrations 1 Morphine Sulfate (Morphine) 2 mg IVP ONCE ONE Stop: 09/18/17 22:01 Last Admin: 09/18/17 22:21 Dose: 2 mg MAR Pain Assessment Document 09/18/17 22:21 [place] (Rec: 09/18/17 22:22 [id number] Pain Reassessment Is this a pain reassessment? No Sleep Is patient sleeping during reassessment? No Presence of Pain Presence of Pain Yes Pain Scale Used Pain Scale Used Numeric Location Left, Right or Bilateral Right Pain Location Body Site Back Description Description Constant Intensity of Pain at present 10 Pain Behavior Moaning Irritability Alleviating Factors/Management Medication Techniques Alleviating Factors Medication IVP Administration Document 09/18/17 22:21 [place] (Rec: 09/18/17 22:22 [id number] Charges for Administration # of IVP Administrations 1 Morphine Sulfate (Morphine) 4 mg IVP Q4H PRN PRN Reason: Pain, moderate (4-7) Last Admin: 09/20/17 10:25 Dose: 4 mg MAR Pain Assessment Document 09/20/17 10:25 [facility] (Rec: 09/20/17 10:25 [id number]) Pain Reassessment Is this a pain reassessment? No Sleep Is patient sleeping during reassessment? No Presence of Pain Presence of Pain Yes Pain Scale Used Pain Scale Used Numeric Location Pain Location Body Site Back Description Description Stabbing Intensity of Pain at present 9 Pain Behavior Facial Grimacing Aggravating Factors None Alleviating Factors/Management Medication Techniques Alleviating Factors Medication IVP Administration Document 09/20/17 10:25 [facility] (Rec: 09/20/17 10:25 [id number]) Charges for Administration # of IVP Administrations 1 Re-Assess: [facility] Pain Assessment Document 09/20/17 11:25 [facility] (Rec: 09/20/17 11:34 [id number]) Pain Reassessment Is this a pain reassessment? Yes Sleep Is patient sleeping during reassessment? No Presence of Pain Presence of Pain Yes Pain Scale Used Pain Scale Used Numeric Location Pain Location Body Site Back Description Intensity of Pain at present 4 Aggravating Factors None Alleviating Factors/Management Medication Techniques Alleviating Factors Medication Oxycodone/Acetaminophen (Percocet 5/325 Mg Tab) 2 tab PO Q4H PRN PRN Reason: Pain, moderate (4-7) Stop: 09/21/17 11:23 Last Admin: 09/19/17 10:07 Dose: 2 tab [facility] Pain Assessment Document 09/19/17 10:07 [facility] (Rec: 09/19/17 10:07 [id number]) Pain Reassessment Is this a pain reassessment? No Sleep Is patient sleeping during reassessment? No Presence of Pain Presence of Pain Yes Pain Scale Used Pain Scale Used Numeric Location Upper or Lower Lower Pain Location Body Site Back Description Description Sharp Intensity of Pain at present 7 Pain Behavior Guarding Irritability Aggravating Factors None Alleviating Factors/Management Medication Techniques Alleviating Factors Medication Re-Assess: [facility] Pain Assessment Document 09/19/17 11:07 [facility] (Rec: 09/19/17 12:50 [id number]) Pain Reassessment Is this a pain reassessment? Yes Sleep Is patient sleeping during reassessment? No Presence of Pain Presence of Pain Yes Pain Scale Used Pain Scale Used Numeric Description Intensity of Pain at present 5 - PA / MEDICAL CLAIMS PROCESSOR / Resident Statement MD/DO has reviewed & agrees with the documentation as recorded. MD/DO has examined the patient and agrees with the treatment plan. Disposition/Present on Arrival - Present on Arrival Any Indicators Present on Arrival: No History of DVT/PE: No History of Uncontrolled Diabetes: No Urinary Catheter: No History of Decub. Ulcer: No History Surgical Site Infection Following: None - Disposition Have Diagnosis and Disposition been Completed?: Yes Diagnosis: Symptomatic anemia, Thrombocytopenia, Hypotension Disposition: HOSPITALIZED Disposition Time: 23:50 Patient Plan: Admission, Telemetry Patient Problems: Current Active Problems Problem Status Onset Symptomatic anemia Acute Thrombocytopenia Acute Hypotension Acute Condition: GUARDED
[2017-09-17] MEDS ORDERED: Sodium Chloride 0.9% 500 ML IV STA (23:11)
[2017-09-17 23:20] LABS: GRAN # 0.73 (1.4-6.5); GRAN % 86.9 % (50.0-68.0); LYMPH # 0.1 (1.2-3.4); LYMPH % 11.9 % (22.0-35.0); MEAN CELL VOLUME 97.8 fl (80.0-105.0); MEAN CORPUSCULAR HEMOGLOBIN 31.9 pg (25.0-35.0); MEAN CORPUSCULAR HGB CONC 32.6 g/dl (31.0-37.0); MEAN PLATELET VOLUME 11.1 fl (7.0-11.0); MONO % 1.2 % (1.0-6.0); RBC 1.85 10^6/uL (3.5-6.1)
[2017-09-17 23:25] LABS: HEMOGLOBIN 5.9 g/dL (14.0-18.0); PLATELET COUNT 20 10^3/uL (120.0-450.0); WHITE BLOOD COUNT 0.8 10^3/ul (4.5-11.0)
[2017-09-17] MEDS ORDERED: Naloxone 0.4 mg/ml Inj (Adult) ONE (23:27)
[2017-09-17 23:34] LABS: ALB/GLOB RATIO 0.6 (1.1-1.8); ALBUMIN 3.6 g/dL (3.0-4.8); ALT/SGPT 18 U/L (7-56); AST/SGOT 16 U/L (17-59); BLOOD UREA NITROGEN 38 mg/dL (7-21); CALCIUM 9.3 mg/dL (8.4-10.5); GFR AFRICAN-AMERICAN > 60; GFR NON-AFRICAN AMERICAN > 60
[2017-09-17 23:37] LABS: B-TYPE NATRIURETIC PEPTIDE 8380 pg/mL (0-450)
[2017-09-17] MEDS ORDERED: Etomidate 20 mg/10ml Inj IV ONE (23:39)
[2017-09-17] MEDS ORDERED: Succinylcholine 200 mg/10 ml Inj IV ONE (23:39)
[2017-09-17 23:47] LABS: INR 1.46 (0.93-1.08); PARTIAL THROMBOPLASTIN TIME 42.7 Seconds (25.1-36.5)
[2017-09-18] MEDS ORDERED: Morphine 2 mg/ml ISec IVP STA (02:13)
--- NOTE | 2017-09-18 02:49 | CP.PCM.CON ---
<Nida Jimenes - Last Filed: 09/18/17 19:11> History of Present Illness - History of Present Illness History of Present Illness: PGY-2 ICU consult note 52 yo male with past medical history of a.fib, diverticulitis with perforation, mesenteric ischemia, anemia, chf, HTN, panctopenia, waldenstrom macroglobulinemia presented for bleeding of thoracic pressure ulcer and back pain for 1 day. Patient states that he was in the hospital earlier today for transfusion of 2 units of blood per heme/onc, at that time he also request to have his wound dressing change. He states while he was being moved, his ulcer became more painful. After a few hours at home he noticed bleeding from the ulcer. He decided to come to the ED. The bleeding stopped. He reports fatigue however he states that it has been occurring for a while. He denies nausea or vomiting, no chest pain or shortness of breath, no night sweat, no other medical or psychological complaints. Patient states that his hgb and blood pressure has been low of a few month now and its at his baseline. PMH: a.fib, diverticulitis with perforation, mesenteric ischemia, anemia, chf, HTN, panctopenia, waldenstrom macroglobulinemia PSH: colostomy social history: lives with son, denies smoking, alcohol use, illicit drug use allergy: NKDA Review of Systems - Constitutional Constitutional: Fatigue, Weakness (general ). absent: Chills, Fever, Headache - EENT Eyes: absent: Blurred Vision, Change in Vision Nose/Mouth/Throat: absent: Sore Throat - Cardiovascular Cardiovascular: absent: Chest Pain, Chest Pain at Rest - Respiratory Respiratory: absent: Cough, Dyspnea - Gastrointestinal Gastrointestinal: absent: Abdominal Pain, Constipation, Cramping, Diarrhea, Nausea, Vomiting - Genitourinary Genitourinary: absent: Difficulty Urinating, Dysuria - Musculoskeletal Musculoskeletal: Back Pain. absent: Arthralgias, Tingling - Integumentary Integumentary: Skin Ulcer. absent: Pruritus, Rash - Neurological Neurological: absent: Dizziness, Focal Weakness, Headaches, Syncope - Hematologic/Lymphatic Hematologic: absent: Easy Bleeding, Easy Bruising Past Patient History - Infectious Disease Hx of Infectious Diseases: None - Past Social History Smoking Status: Former Smoker - CARDIAC Hx Cardia Arrhythmia: Yes (AFIB) - PULMONARY Hx Respiratory Disorders: Yes (H/O OF SMOKING CIGARETTES) - NEUROLOGICAL Hx Neurological Disorder: No Hx Transient Ischemic Attacks (TIA): No - HEENT Hx HEENT Problems: No Hx Blind: No Hx Cataracts: No Hx Deafness: No Hx Difficulty Chewing: No Hx Epistaxis: No Hx Glaucoma: No Hx Macular Degeneration: No - RENAL Hx Chronic Kidney Disease: No Hx Renal Failure: No - ENDOCRINE/METABOLIC Hx Endocrine Disorders: No Hx Diabetes Mellitus Type 1: No Hx Diabetes Mellitus Type 2: No - HEMATOLOGICAL/ONCOLOGICAL Hx Anemia: Yes Hx Cancer: Yes (Blood Cancer as per patient WALDENSTROM MACROGLOBULINEMIA (NON HODGKIN'S L)) - INTEGUMENTARY Other/Comment: cyst removed from back I/D. 08-22-17 BILATERAL LEG EDEMA +4 PATCHY BROWN SPOTS,DRY FLAKY SKIN. COLOSTOMY LEFT - MUSCULOSKELETAL/RHEUMATOLOGICAL Hx Musculoskeletal Disorders: Yes Hx Falls: Yes (past) - GASTROINTESTINAL Hx Gastrointestinal Disorders: Yes (colostomy) Hx Colostomy: Yes Hx Diverticulitis: Yes - GENITOURINARY/GYNECOLOGICAL Hx Genitourinary Disorders: No - PSYCHIATRIC Hx Psychophysiologic Disorder: No Hx Emotional Abuse: No Hx Physical Abuse: No Hx Substance Use: No - SURGICAL HISTORY Hx Cardiac Catheterization: Yes - ANESTHESIA Hx Anesthesia: Yes Hx Anesthesia Reactions: No Hx Malignant Hyperthermia: No Meds Allergies/Adverse Reactions: Allergies Allergy/AdvReac Type Severity Reaction Status Date / Time No Known Allergies Allergy Verified 09/01/17 15:05 Physical Exam - Constitutional Appears: No Acute Distress, Cachectic, Chronically Ill - Head Exam Head Exam: ATRAUMATIC, NORMAL INSPECTION, NORMOCEPHALIC - Eye Exam Eye Exam: Normal appearance - ENT Exam ENT Exam: Mucous Membranes Dry - Respiratory Exam Respiratory Exam: Clear to Auscultation Bilateral, NORMAL BREATHING PATTERN. absent: Rhonchi, Wheezes, Respiratory Distress - Cardiovascular Exam Cardiovascular Exam: REGULAR RHYTHM, +S1, +S2. absent: Tachycardia, Diastolic murmur, Systolic Murmur - GI/Abdominal Exam GI & Abdominal Exam: Normal Bowel Sounds, Soft Additional comments: colostomy bag in place, no erythema, no blood - Extremities Exam Extremities exam: Positive for: normal inspection. Negative for: pedal edema, tenderness - Neurological Exam Neurological exam: Alert, Oriented x3 - Skin Skin Exam: Pallor, Warm Additional comments: ulcer on thoracic Results - Vital Signs Recent Vital Signs: Last Vital Signs Temp 97.9 F 09/18/17 02:30 Pulse 80 09/18/17 02:30 Resp 18 09/18/17 02:30 BP 83/52 L 09/18/17 02:30 Pulse Ox 96 09/18/17 02:30 - Labs Result Diagrams: 09/17/17 23:00 09/17/17 23:00 Labs: Laboratory Results - last 24 hr 09/17/17 09/17/17 09/17/17 23:00 23:00 23:00 WBC 0.8 L* D RBC 1.85 L Hgb 5.9 L* Hct 18.1 L* MCV 97.8 D MCH 31.9 MCHC 32.6 RDW 20.0 H Plt Count 20 L* MPV 11.1 H Gran % 86.9 H Lymph % (Auto) 11.9 L Hutchinson % (Auto) 1.2 Eos % (Auto) 0.0 L Baso % (Auto) 0.0 Gran # 0.73 L Lymph # 0.1 L Hutchinson # 0.0 L Eos # 0.0 Baso # 0.00 PT 16.0 H INR 1.46 H APTT 42.7 H Sodium 132 Potassium 4.3 Chloride 93 L Carbon Dioxide 26 Anion Gap 18 BUN 38 H Creatinine 0.9 Est GFR ( Amer) > 60 Est GFR (Non-Af Amer) > 60 Random Glucose 257 H Calcium 9.3 Magnesium 2.0 Total Bilirubin 2.1 H AST 16 L ALT 18 Alkaline Phosphatase 85 NT-Pro-B Natriuret Pep 8380 H Total Protein 9.4 H Albumin 3.6 Globulin 5.9 Albumin/Globulin Ratio 0.6 L Digoxin Blood Type Antibody Screen Crossmatch BBK History Checked 09/17/17 09/17/17 23:00 23:00 WBC RBC Hgb Hct MCV MCH MCHC RDW Plt Count MPV Gran % Lymph % (Auto) Hutchinson % (Auto) Eos % (Auto) Baso % (Auto) Gran # Lymph # Hutchinson # Eos # Baso # PT INR APTT Sodium Potassium Chloride Carbon Dioxide Anion Gap BUN Creatinine Est GFR ( Amer) Est GFR (Non-Af Amer) Random Glucose Calcium Magnesium Total Bilirubin AST ALT Alkaline Phosphatase NT-Pro-B Natriuret Pep Total Protein Albumin Globulin Albumin/Globulin Ratio Digoxin 0.6 L Blood Type A NEGATIVE Antibody Screen Negative Crossmatch See Detail BBK History Checked Patient has bt Assessment & Plan - Assessment and Plan (Free Text) Assessment: 52 yo male with past medical history of a.fib, diverticulitis with perforation, mesenteric ischemia, anemia, chf, HTN, panctopenia, waldenstrom macroglobulinemia presented for bleeding of thoracic pressure ulcer found to be leukopenia, thrombocytopenia, and anemic. I spoke with heme/onc covering, she states that he has not been responding to treatment for the past few months and has been receiving multiple treatments. She recommended to transfuse 2 units pRBC, 1 unit of platelets for active bleeding and to start granix. Patient's blood pressure is at baseline. Administrative Executive recommends admission to floors since patient is at his baseline. Patient is hemodynamically at baseline, he does not require ICU at this time. Please reconsult if his condition changes. <Juan F Hernandez - Last Filed: 09/18/17 21:54> Meds - Medications Medications: Current Medications Carvedilol (Coreg) 3.125 mg PO DAILY [facility] Last Admin: 09/18/17 12:15 Dose: Not Given Digoxin (Lanoxin) 0.125 mg PO DAILY [facility] Last Admin: 09/18/17 11:33 Dose: 0.125 mg Lorazepam (Ativan) 0.5 mg PO HS [facility] PRN Reason: Protocol Mirtazapine (Remeron) 22.5 mg PO HS [facility] Oxycodone/Acetaminophen (Percocet 5/325 Mg Tab) 2 tab PO Q4H PRN PRN Reason: Pain, moderate (4-7) Stop: 09/21/17 11:23 Last Admin: 09/18/17 16:48 Dose: 2 tab Results - Vital Signs Recent Vital Signs: Last Vital Signs Temp 98.0 F 09/18/17 12:00 Pulse 91 H 09/18/17 12:15 Resp 18 09/18/17 12:00 BP 98/59 L 09/18/17 12:15 Pulse Ox 100 09/18/17 06:00 - Labs Result Diagrams: 09/17/17 23:00 09/17/17 23:00
[2017-09-18] MEDS ORDERED: Morphine 4 mg/ml ISec IVP STA (04:31)
[2017-09-18] MEDS: Digoxin 125 mcg (0.125 mg) Tab PO SCH (11:33)
[2017-09-18] MEDS: Oxycodone/Acetaminophen 5/325 mg Tab PO PRN ×2 (11:33→16:48)
--- NOTE | 2017-09-18 12:59 | CP.PCM.CON ---
History of Present Illness - History of Present Illness History of Present Illness: General Surgery Consult note- Dr. Mas 52M well known to the surgical service w/ phx of Waldenstrom Macroglobulinemia, AFib, CAD, anemia w/ multiple blood transfusion, chronic back pain/bed bound, sacral wound vac, admitted for actively bleeding thoracic pressure ulcer that is actively being treated w/ wound vac at home. He states that the wound has been care for by home nurse with daily dressing changes, no packing and wound vac. He was recently being transfused blood and when patient was being moved beds and noticed significant bleed for the back. Pt complains of persistent/ unchanged chronic back pain Denies any Nausea/Vomiting, Abdominal pain, Chest pain, Diarrhea, Hematochezia. PMH: Waldenstrom Macroglobulinemia, Afib, CAD, Diverticulitis, Spinal Fxs PSH: Nneka's procedure for perforated diverticulitis in 2014, I&D of back abscess 05/2017 ALL: NKDA SocialHx: Former tobacco use, denies ETOH or recreational drug use Review of Systems - Review of Systems All systems: reviewed and no additional remarkable complaints except - Constitutional Constitutional: As Per HPI Past Patient History - Infectious Disease Hx of Infectious Diseases: None - Past Social History Smoking Status: Former Smoker - CARDIAC Hx Cardia Arrhythmia: Yes Hx Congestive Heart Failure: Yes Hx Hypertension: Yes - PULMONARY Hx Respiratory Disorders: Yes (H/O OF SMOKING CIGARETTES) - NEUROLOGICAL Hx Neurological Disorder: No Hx Transient Ischemic Attacks (TIA): No - HEENT Hx HEENT Problems: No - RENAL Hx Chronic Kidney Disease: No - ENDOCRINE/METABOLIC Hx Endocrine Disorders: No - HEMATOLOGICAL/ONCOLOGICAL Hx Anemia: Yes Hx Cancer: Yes Hx Chemotherapy: Yes - INTEGUMENTARY Hx Dermatological Problems: No - MUSCULOSKELETAL/RHEUMATOLOGICAL Hx Falls: Yes - GASTROINTESTINAL Hx Colostomy: Yes - GENITOURINARY/GYNECOLOGICAL Hx Genitourinary Disorders: No - PSYCHIATRIC Hx Anxiety: Yes - SURGICAL HISTORY Hx Surgeries: Yes - ANESTHESIA Hx Anesthesia: Yes Hx Anesthesia Reactions: No Hx Malignant Hyperthermia: No Meds Allergies/Adverse Reactions: Allergies Allergy/AdvReac Type Severity Reaction Status Date / Time No Known Allergies Allergy Verified 09/01/17 15:05 - Medications Medications: Current Medications Carvedilol (Coreg) 3.125 mg PO DAILY [facility] Last Admin: 09/18/17 12:15 Dose: Not Given Digoxin (Lanoxin) 0.125 mg PO DAILY [facility] Last Admin: 09/18/17 11:33 Dose: 0.125 mg Lorazepam (Ativan) 0.5 mg PO HS [facility] PRN Reason: Protocol Mirtazapine (Remeron) 22.5 mg PO HS [facility] Oxycodone/Acetaminophen (Percocet 5/325 Mg Tab) 2 tab PO Q4H PRN PRN Reason: Pain, moderate (4-7) Stop: 09/21/17 11:23 Last Admin: 09/18/17 11:33 Dose: 2 tab Physical Exam - Constitutional Appears: Non-toxic, No Acute Distress, Chronically Ill - Head Exam Head Exam: ATRAUMATIC - Eye Exam Eye Exam: EOMI. absent: Scleral icterus - ENT Exam ENT Exam: Mucous Membranes Moist - Respiratory Exam Respiratory Exam: NORMAL BREATHING PATTERN. absent: Accessory Muscle Use, Respiratory Distress - Cardiovascular Exam Cardiovascular Exam: +S1, +S2. absent: Bradycardia, Tachycardia - GI/Abdominal Exam GI & Abdominal Exam: Soft. absent: Distended, Firm, Guarding, Hernia, Rigid - Extremities Exam Additional comments: pedal edema dry scaly skin refuses boots - Back Exam Back exam: absent: CVA tenderness (L), CVA tenderness (R) Additional comments: no areas of necrosis two areas of skin break down. currently healing mid thoracic wound measuring approx 5x5 cm w/ no necortic edges. blood clot present. removed blood clot during examination right side mid back superficial pressure ulcer. no areas of necrosis. considered stage 2 ulcer - Neurological Exam Neurological exam: Alert, Oriented x3 - Skin Skin Exam: Dry, Mottled Additional comments: back mid thoracic wound measuring 5x5cm w/ blood clot clot removed during examination and pressure dressing was applied Results - Vital Signs Recent Vital Signs: Last Vital Signs Temp 98.0 F 09/18/17 12:00 Pulse 91 H 09/18/17 12:15 Resp 18 09/18/17 12:00 BP 98/59 L 09/18/17 12:15 Pulse Ox 100 09/18/17 06:00 - Labs Result Diagrams: 09/17/17 23:00 09/17/17 23:00 Assessment & Plan - Assessment and Plan (Free Text) Assessment: 52M presents w/ anemia and bleeding back wound being treating at home w/ wound vac Plan: - placed avitene and pressure dressing at the wound site - will re-asses wound dressing and saturation status - turn patient Q2 - air mattress - local wound care - f/u H/H transfuse PRN - medical management per primary team - further res per Dr. Chace Geiger PGY1
[2017-09-18] MEDS ORDERED: Collagen Hemostat Powder MM ONE (13:23)
--- NOTE | 2017-09-18 14:49 | CARD ---
APPROVED REPORT EKG Measurement Heart [id number] <Conclusion> Atrial fibrillation with rapid ventricular response Low voltage QRS Septal infarct, age undetermined ST & T wave abnormality, consider anterolateral ischemia or digitalis effect Abnormal ECG
[2017-09-18] MEDS ORDERED: Morphine 2 mg/ml ISec IVP ONE (22:00)
[2017-09-19] MEDS: Oxycodone/Acetaminophen 5/325 mg Tab PO PRN ×2 (02:49→10:07)
--- NOTE | 2017-09-19 02:49 | HP ---
HISTORY OF PRESENT ILLNESS: The patient is a 52-year-old, known to me from multiple previous admission. The patient states he got blood transfusion yesterday as ordered by Dr. Nolasco. The patient states he was not feeling well, and complaining of generalized weakness, and back pain. He had wound VAC placed. The patient states that after he received 2 blood transfusions, he went home and he started to change the dressing and he started to bleed. He called ambulance and he was brought to Emergency Room again. He does complain of pain in the back at the area of his thoracic wound. No history of fever or chills. No history of nausea or vomiting. He does complain of generalized weakness and complain of back pain. PAST MEDICAL HISTORY: Significant for: 1. Waldenstrom's gammaglobulinemia. 2. Pancytopenia. 3. History of hypertension, currently running hypotension. 4. Deconditioning and difficulty walking, the patient is basically bed bound. 5. History of atrial fibrillation, but not on Coumadin because of his pancytopenia and thrombocytopenia. 6. History of ruptured diverticulum status post colostomy. 7. Status post thoracic vertebral abscess, had I and D done and currently on wound VAC. ALLERGIES: HE IS NOT ALLERGIC TO ANY MEDICATION. MEDICATION AT HOME: He is on Percocet 10/325 mg q. 6 hours. p.r.n., Ativan 0.5 mg at bedtime, digoxin 0.125 and Coreg 3.125. SOCIAL HISTORY: He is . He lives with his son. No history of smoking or drinking. REVIEW OF SYSTEMS: Generalized weakness, difficulty walking and difficulty getting out of bed. PHYSICAL EXAMINATION: GENERAL: He is awake, alert, oriented, looks depressed, and pale. VITAL SIGNS: He is afebrile, pulse is 91, respirations are 18, and blood pressure 90/59. LUNGS: Bilateral fair airflow. No rhonchi or crackle. HEART: S1 and S2 audible. ABDOMEN: Soft and nontender. No rebound and no guarding, but has colostomy in place and is functioning. No blood in the colostomy bag. NEUROLOGIC: He is awake, alert, oriented. His back wound is in wound VAC. LABORATORY EXAMINATION: WBC is 0.8, hemoglobin of 5.9, hematocrit of 18, and platelet of 20. PT of 16.0 and INR of 1.46. Chemistry: Sodium of 132, potassium of 4.3, chloride of 93, CO2 of 23, BUN of 38, creatinine of 0.9, and blood sugar of 257. LFTs are within normal limits. Total bilirubin is 2.1. BNP is 8380. Digoxin is 0.6. ASSESSMENT AND PLAN: 1. Pancytopenia. 2. Waldenstrom's gammaglobulinemia. 3. Debility and deconditioning. 4. Status post colostomy. 5. Hypotension. PLAN: I will start the patient on Neupogen. Follow up CBC and CMP in a.m. and depending on, might need more blood transfusion. Keep him on analgesic and Dr. Nolasco has been consulted to monitor the patient's back wound. Pepito Gavin MD
--- NOTE | 2017-09-19 08:19 | CP.PCM.PN ---
Subjective - Date & Time of Evaluation Date of Evaluation: 09/19/17 Time of Evaluation: 06:30 - Subjective Subjective: General Surgery- Dr. Mas Patient seen and examined at bedside this AM. No acute events overnight. Patient continues to ask about pain control regiment. tolerating current diet. Dressing in back is C/D/I s/p avitene and packing placement in the wound. Denies F/C CP/SOB N/V/D Objective - Vital Signs/Intake and Output Vital Signs (last 24 hours): Temp Pulse Resp BP Pulse Ox 99.5 F 96 H 22 85/57 L 98 09/19/17 07:53 09/19/17 07:53 09/19/17 07:53 09/19/17 07:53 09/19/17 07:53 Intake and Output: 09/19/17 09/19/17 06:59 18:59 Intake Total 240 Output Total 200 Balance 40 - Medications Medications: Current Medications Carvedilol (Coreg) 3.125 mg PO DAILY [facility] Last Admin: 09/18/17 12:15 Dose: Not Given Digoxin (Lanoxin) 0.125 mg PO DAILY [facility] Last Admin: 09/18/17 11:33 Dose: 0.125 mg Lorazepam (Ativan) 0.5 mg PO HS [facility] PRN Reason: Protocol Last Admin: 09/19/17 00:39 Dose: 0.5 mg Mirtazapine (Remeron) 22.5 mg PO HS [facility] Last Admin: 09/19/17 00:39 Dose: 22.5 mg Oxycodone/Acetaminophen (Percocet 5/325 Mg Tab) 2 tab PO Q4H PRN PRN Reason: Pain, moderate (4-7) Stop: 09/21/17 11:23 Last Admin: 09/19/17 02:49 Dose: 2 tab - Labs Labs: 09/19/17 05:00 09/19/17 07:20 PT 16.0 SECONDS (9.4-12.5) H 09/17/17 23:00 INR 1.46 (0.93-1.08) H 09/17/17 23:00 APTT 42.7 Seconds (25.1-36.5) H 09/17/17 23:00 - Constitutional Appears: Non-toxic, No Acute Distress - Eye Exam Eye Exam: EOMI. absent: Scleral icterus - ENT Exam ENT Exam: Mucous Membranes Moist - Respiratory Exam Respiratory Exam: NORMAL BREATHING PATTERN. absent: Accessory Muscle Use, Respiratory Distress - Cardiovascular Exam Cardiovascular Exam: +S1, +S2. absent: Bradycardia, Tachycardia - GI/Abdominal Exam GI & Abdominal Exam: Soft. absent: Distended, Firm, Guarding, Rigid, Tenderness - Extremities Exam Extremities Exam: Pedal Edema - Back Exam Additional comments: Dressing C/D/I no bleeding noticed avitene and packing in place - Neurological Exam Neurological Exam: Alert, Awake, Oriented x3 - Skin Skin Exam: Warm Assessment and Plan - Assessment and Plan (Free Text) Assessment: 52M w/ anemia and actively bleeding of wound on back Plan: - will remove packing, placed for hemostasis - fu H/H replace PRN - pain control PRN - further recs per Dr. Mas surgical attending Scottie Geiger PGY1
[2017-09-19] MEDS: Digoxin 125 mcg (0.125 mg) Tab PO SCH (10:08)
[2017-09-19] MEDS: Morphine 4 mg/ml ISec IVP PRN ×3 (12:50→21:55)
--- NOTE | 2017-09-20 01:35 | CON ---
DATE: 09/19/2017 CHIEF COMPLAINT: Back wound bleeding times several days. HISTORY OF PRESENT ILLNESS: He has a 52-year-old male known to me from previous admissions with Waldenstrom's macroglobulinemia, status post chemotherapy, atrial fibrillation, diverticulitis, vertebral compression fracture, stoma infection, MRSE bacteremia and thoracic soft tissue infection, had an MRI in the past which showed no evidence of osteo, now is admitted with the patient had a wound VAC in the back and was taken off, had bleeding. REVIEW OF SYSTEMS: Reveals there have been no fevers and no chills. No nausea, no vomiting. No chest pain, no shortness of breath. PAST MEDICAL HISTORY: Significant for Waldenstrom's macroglobulinemia status post chemotherapy, atrial fibrillation, diverticulitis, vertebral compression fractures, stoma infection and thoracic soft tissue infection not involving the spine, and an MRSE bacteremia. PAST SURGICAL HISTORY: Significant for Nneka's procedure. ALLERGIES: THE PATIENT HAS NO KNOWN ALLERGIES. MEDICATIONS AT HOME: Reviewed. PHYSICAL EXAMINATION: GENERAL: The patient is in bed. VITAL SIGNS: Temperature of 99.5, blood pressure is 85/50, respiratory rate of 22, heart rate of 96. HEENT: Unremarkable. NECK: Supple. LUNGS: Have decreased breath sounds. HEART: Normal S1, S2. ABDOMEN: Soft, nontender. LABORATORY EXAMINATION: Reveals a white count of 0.8, although it was up to 14,700 with an absolute count of 9000 of the granulocyte count. Chemistries reveal a BUN of 11, creatinine of 1.0. Toxicology is noted and coagulation is noted. ASSESSMENT/PLAN: This is a 52-year-old male with Waldenstrom's macroglobulinemia, status post chemotherapy, atrial fibrillation, diverticulitis, vertebral compression fracture with stoma infection and methicillin-resistant Staphylococcus epidermidis bacteremia with thoracic soft tissue infection. 1. SIRS, systemic inflammatory response syndrome with a bleeding clean wound. No evidence of infection at this time. Continue local care as per by discussion with the surgical residents, who state the wound is clean and we will keep the patient off of antibiotics at this time; however, the patient is at risk for developing nosocomial infection. Anatoliy Luna MD
[2017-09-20] MEDS: Morphine 4 mg/ml ISec IVP PRN ×7 (01:56→23:15)
--- NOTE | 2017-09-20 08:34 | CP.PCM.PN ---
Subjective - Date & Time of Evaluation Date of Evaluation: 09/20/17 Time of Evaluation: 06:30 - Subjective Subjective: General Surgery- Dr. Mas Patient seen and examined at bedside this AM. patient is complaining of continued entire body pain. he does not want to move or roll. tolerating current diet. Dressing C/D/I. denies fevers, chills, shortness of breath, nasuea , vomiting, diarrhea. Objective - Vital Signs/Intake and Output Vital Signs (last 24 hours): Temp Pulse Resp BP Pulse Ox 99.5 F 96 H 22 85/57 L 98 09/19/17 07:53 09/19/17 07:53 09/19/17 07:53 09/19/17 10:08 09/19/17 15:16 Intake and Output: 09/20/17 09/20/17 06:59 18:59 Intake Total 360 Output Total 750 Balance -390 - Medications Medications: Current Medications Carvedilol (Coreg) 3.125 mg PO DAILY [facility] Last Admin: 09/19/17 10:08 Dose: Not Given Digoxin (Lanoxin) 0.125 mg PO DAILY [facility] Last Admin: 09/19/17 10:08 Dose: 0.125 mg Lorazepam (Ativan) 0.[address] [facility] PRN Reason: Protocol Last Admin: 09/19/17 23:47 Dose: 0.5 mg Mirtazapine (Remeron) 22.5 mg PO HS [facility] Last Admin: 09/19/17 21:57 Dose: 22.5 mg Morphine Sulfate (Morphine) 4 mg IVP Q4H PRN PRN Reason: Pain, moderate (4-7) Last Admin: 09/20/17 05:54 Dose: 4 mg Oxycodone/Acetaminophen (Percocet 5/325 Mg Tab) 2 tab PO Q4H PRN PRN Reason: Pain, moderate (4-7) Stop: 09/21/17 11:23 Last Admin: 09/19/17 10:07 Dose: 2 tab - Labs Labs: 09/19/17 05:00 09/19/17 07:20 PT 16.0 SECONDS (9.4-12.5) H 09/17/17 23:00 INR 1.46 (0.93-1.08) H 09/17/17 23:00 APTT 42.7 Seconds (25.1-36.5) H 09/17/17 23:00 - Constitutional Appears: Non-toxic, No Acute Distress - Eye Exam Eye Exam: EOMI. absent: Scleral icterus - ENT Exam ENT Exam: Mucous Membranes Moist - Respiratory Exam Respiratory Exam: NORMAL BREATHING PATTERN. absent: Accessory Muscle Use, Respiratory Distress - Cardiovascular Exam Cardiovascular Exam: Tachycardia, +S1, +S2. absent: Bradycardia - GI/Abdominal Exam GI & Abdominal Exam: Soft. absent: Guarding, Rigid, Tenderness - Extremities Exam Extremities Exam: Pedal Edema. absent: Calf Tenderness - Back Exam Additional comments: Dressing C/D/I bleeding - Neurological Exam Neurological Exam: Alert, Awake, Oriented x3 - Skin Skin Exam: Warm Assessment and Plan - Assessment and Plan (Free Text) Assessment: 52M bleeding back wound bleeding seems to have stopped. will keep dressing on it Plan: - local wound care on the back - f/u labs; transfuse PRN - no acute surgical intervention at this time - ordered Clinitron mattress to help prevent pressure ulcers - further recs per Dr. Chace Geiger PGY1
[2017-09-20] MEDS: Digoxin 125 mcg (0.125 mg) Tab PO SCH (10:22)
--- NOTE | 2017-09-20 13:26 | PN ---
DATE: 09/20/2017 SUBJECTIVE: The patient is in bed, in no acute distress, nontoxic. OBJECTIVE: VITAL SIGNS: Temperature is 98, blood pressure is 85/60, respiratory rate of 21, and heart rate of 102. HEENT: Unremarkable. NECK: Supple. LUNGS: Have decreased breath sounds. HEART: Normal S1 and S2. ABDOMEN: Soft and nontender. LABORATORY DATA: Reveals white count of 14,700 and hemoglobin of 8. Chemistries are noted and microbiology is noted. ASSESSMENT AND PLAN: A 52-year-old male known to me from previous admission with history of Waldenstrom's macroglobulinemia status post chemotherapy, history of atrial fibrillation, diverticulitis, vertebral compression, stoma infection, history of methicillin-resistant Staphylococcus aureus bacteremia, and history of thoracic soft tissue infection with negative MRI for osteo in the past who is admitted now with: 1. Systemic inflammatory response syndrome with a bleeding wound. No evidence of an infection at this time from the wound. Evaluation currently off of antibiotics, however, the patient is at risk for developing nosocomial infections. We will follow closely with you. Anatoliy Luna MD
[2017-09-20 13:57] LABS: GRAN # 0.46 (1.4-6.5); GRAN % 77.9 % (50.0-68.0); LYMPH # 0.1 (1.2-3.4); LYMPH % 13.6 % (22.0-35.0); MEAN CELL VOLUME 97.6 fl (80.0-105.0); MEAN CORPUSCULAR HGB CONC 31.7 g/dl (31.0-37.0); MEAN PLATELET VOLUME 10.2 fl (7.0-11.0); MONO # 0.1 (0.1-0.6); MONO % 8.5 % (1.0-6.0); RBC 1.68 10^6/uL (3.5-6.1)
[2017-09-20 14:02] LABS: BLOOD UREA NITROGEN 19 mg/dL (7-21); CALCIUM 8.8 mg/dL (8.4-10.5); GFR AFRICAN-AMERICAN > 60; GFR NON-AFRICAN AMERICAN > 60
[2017-09-20 14:45] LABS: HEMOGLOBIN 5.2 g/dL (14.0-18.0); WHITE BLOOD COUNT 0.6 10^3/ul (4.5-11.0)
[2017-09-20 14:46] LABS: PLATELET COUNT 17 10^3/uL (120.0-450.0)
--- NOTE | 2017-09-20 19:36 | CON ---
DATE: HISTORY OF PRESENT ILLNESS: The wound on the back has not changed much. There is lot of tunneling and little bit of bleeding from the tunneling. The wound has little bit smell having been packed and we will culture it and place a wound VAC. In addition, we will put him on a speciality mattress. The patient is complaining lot of pain. Td Mas MD
--- NOTE | 2017-09-21 02:01 | PN ---
DATE: 09/19/2017 SUBJECTIVE: Mr. Garcia has history of advanced-stage Waldenstrom disease. He has been pancytopenic for past few months. He was admitted to the hospital with hemoglobin of 5 g/dL. Received 2 units of blood transfusion yesterday. He has a back wound which is bleeding, seen by Dr. Mas. He is complaining of lot of back pain, morphine is q. 4 hour. Pain medications are not able to control the pain. Denies any fever, chills, rigors. PAST MEDICAL HISTORY: 1. Waldenstrom. 2. Pancytopenia. 3. Hypertension. 4. CHF. 5. Atrial fibrillation. 6. Thoracic abscess with wound VAC. ALLERGIES: NO KNOWN DRUG ALLERGIES. HOME MEDICATIONS: Reviewed. REVIEW OF SYSTEMS: As per HPI. Rest of the 12-point review of systems reviewed and negative. PHYSICAL EXAMINATION: GENERAL: Looks terminally ill. Pallor positive. Sweating profusely on the face. VITAL SIGNS: Heart rate is 90 per minute, respiratory 18 per minute , blood pressure 100/60. HEENT: Pallor positive. NECK: Supple. No lymphadenopathy. CHEST: Fair air entry, present and equal bilaterally. No added sounds. CARDIOVASCUARL: S1 and S2 normal. No murmur. No gallop. ABDOMEN: Soft and nontender. No hepatosplenomegaly. EXTREMITIES: Pallor positive. 1+ edema. NEUROLOGIC: Awake, alert, oriented. No focal sensory motor deficit. SKIN: No petechiae. No rash. LABORATORY DATA: White count 0.8, hemoglobin 5.9, hematocrit 18, and platelet count 20. Creatinine 0.9, glucose 250. ASSESSMENT: 1. Pancytopenia. 2. Terminal Waldenstrom's agammaglobulinemia. 3. Cachexia. 4. Bleeding from the back wound. 5. Back wound abscess. 6. Hypotension. PLAN: Status post 2 units of blood transfusion. Blood counts, white count showed 15,000, hemoglobin of 8. We will order repeat blood count on 09/20/2017. Blood count entered in the computer looked erroneous because he never had 15,000 white count. Continue digoxin, Coreg is on hold for hypotension. Remeron p.r.n. Morphine was 4 mg q. 4 hour p.r.n. Pain was not controlled. We will do 4 mg IV q.3 hour p.r.n. for moderate to severe pain. Nancy Ward MD
--- NOTE | 2017-09-21 02:07 | PN ---
DATE: 09/20/2017 SUBJECTIVE: He is comfortable in bed. No acute distress. Pain is fairly controlled with q.3 hours 4 mg regimen. There was bleeding from the back wound, which has stopped now. No fever overnight. No events overnight. Oral intake is poor. REVIEW OF SYSTEMS: As per HPI. Rest of 12-point review of systems is reviewed and negative. CURRENT MEDICATIONS: Coreg 3.125 mg daily, digoxin 0.125 mg daily, Ativan 0.5 mg p.o. at bedtime, Remeron 22.5 mg p.o. at bedtime, and morphine 4 mg IV q.3 hours p.r.n. for pain. PHYSICAL EXAMINATION: GENERAL: Cachexia present. VITAL SIGNS: Temperature is 99.2, heart rate is 89 per minute, blood pressure is 81/47, and respiratory rate is 20 per minute. HEENT: Pallor positive. NECK: Supple. No lymphadenopathy. CHEST: Air entry present and equal bilaterally. No added sounds. CARDIOVASCULAR: S1 and S2 normal. No murmur. No gallop. ABDOMEN: Soft and nontender. No hepatosplenomegaly. EXTREMITIES: 1+ edema. NEUROLOGIC: Alert and oriented x3. No focal sensory or motor deficits. SKIN: Pallor positive. No petechiae. No rash. ASSESSMENT: 1. Advanced Waldenstrom's macroglobulinemia. 2. Pancytopenia. 3. Severe anemia. 4. Thrombocytopenia. PLAN: Dr. Mas, Surgery is following for the back wound that has stopped bleeding. He is pancytopenic. Hemoglobin is 5.2. Yesterday, it was entered as 8 g/dL that was an error, which had been rectified. He will get 2 units of blood transfusion today and Lasix 20 mg IV after first unit. Pancytopenia, there is no role of Neupogen because bone marrow is Waldenstrom's disease, Neupogen will not help to improve the blood counts. Definitive treatment of disease as per primary oncologist in . He is thrombocytopenic with platelet count of 17,000. If he continues to bleed, he needs platelet transfusion also. Dr. Mas's note is reviewed. Nancy Ward MD
[2017-09-21] MEDS: Morphine 4 mg/ml ISec IVP PRN ×7 (02:27→23:51)
[2017-09-21 07:05] LABS: GRAN # 0.63 (1.4-6.5); GRAN % 76.9 % (50.0-68.0); LYMPH # 0.1 (1.2-3.4); LYMPH % 14.6 % (22.0-35.0); MEAN CELL VOLUME 95.2 fl (80.0-105.0); MEAN CORPUSCULAR HEMOGLOBIN 29.5 pg (25.0-35.0); MEAN PLATELET VOLUME 9.4 fl (7.0-11.0); MONO # 0.1 (0.1-0.6); MONO % 8.5 % (1.0-6.0); RED CELL DISTRIBUTION WIDTH 19.5 % (11.5-14.5)
[2017-09-21 07:24] LABS: ALB/GLOB RATIO 0.6 (1.1-1.8); ALT/SGPT 19 U/L (7-56); AST/SGOT 12 U/L (17-59); BLOOD UREA NITROGEN 17 mg/dL (7-21); CALCIUM 8.6 mg/dL (8.4-10.5); GFR AFRICAN-AMERICAN > 60; GFR NON-AFRICAN AMERICAN > 60
[2017-09-21 07:59] LABS: HEMOGLOBIN 6.2 g/dL (14.0-18.0); PLATELET COUNT 15 10^3/uL (120.0-450.0); WHITE BLOOD COUNT 0.8 10^3/ul (4.5-11.0)
[2017-09-21] MEDS: Digoxin 125 mcg (0.125 mg) Tab PO SCH (09:51)
--- NOTE | 2017-09-21 10:46 | CP.PCM.PN ---
Subjective - Date & Time of Evaluation Date of Evaluation: 09/21/17 Time of Evaluation: 10:43 - Subjective Subjective: General Surgery - Dr. Mas Patient seen and examined this Am. No acute events reported overnight. Patient complains generalized pain with specific note towards his back pain associated with ulcers. Patient agreed to rolling and wound dressing change during visit. Patient denies shortness of breath, nausea, fever, chills. Objective - Vital Signs/Intake and Output Vital Signs (last 24 hours): Temp Pulse Resp BP Pulse Ox 98.7 F 93 H 18 88/56 L 100 09/21/17 03:34 09/21/17 09:51 09/21/17 03:34 09/21/17 09:51 09/20/17 15:59 Intake and Output: 09/21/17 09/21/17 06:59 18:59 Intake Total 1140 Output Total 300 Balance 840 - Medications Medications: Current Medications Carvedilol (Coreg) 3.125 mg PO DAILY [facility] Last Admin: 09/21/17 09:51 Dose: Not Given Digoxin (Lanoxin) 0.125 mg PO DAILY [facility] Last Admin: 09/21/17 09:51 Dose: 0.125 mg Lorazepam (Ativan) 0.5 mg PO [facility] PRN Reason: Protocol Last Admin: 09/21/17 01:33 Dose: Not Given Mirtazapine (Remeron) 22.5 mg PO HS [facility] Last Admin: 09/20/17 23:48 Dose: 22.5 mg Morphine Sulfate (Morphine) 4 mg IVP Q3H PRN PRN Reason: Pain, moderate (4-7) Last Admin: 09/21/17 09:49 Dose: 4 mg - Labs Labs: 09/21/17 06:45 09/21/17 06:45 PT 16.0 SECONDS (9.4-12.5) H 09/17/17 23:00 INR 1.46 (0.93-1.08) H 09/17/17 23:00 APTT 42.7 Seconds (25.1-36.5) H 09/17/17 23:00 - Constitutional Appears: No Acute Distress - Eye Exam Eye Exam: EOMI. absent: Scleral icterus - ENT Exam ENT Exam: Mucous Membranes Moist - Respiratory Exam Respiratory Exam: NORMAL BREATHING PATTERN. absent: Accessory Muscle Use, Rales , Wheezes - Cardiovascular Exam Cardiovascular Exam: Tachycardia, +S1, +S2 - GI/Abdominal Exam GI & Abdominal Exam: Soft. absent: Firm, Guarding, Rigid - Extremities Exam Extremities Exam: absent: Calf Tenderness Additional comments: LE edema bilateral - Back Exam Additional comments: Patient with two mid ulcers at mid back, - largest ulcer graded as stage III [id number] with 1cm depth with undermining, mild serosanguenous fluid oozing during dressing change, foul odor appreciated, dressing and packing changed - Smaller ulcer graded as stage II noted to be 2cm x 2cm with minimal depth, appears to have more serosanguenous drainage with moderate oozing, dressing changed - Neurological Exam Neurological Exam: Alert, Awake, Oriented x3 - Psychiatric Exam Psychiatric exam: Normal Affect - Skin Skin Exam: Warm Assessment and Plan - Assessment and Plan (Free Text) Assessment: 52 year old male with neutropenia with two wound(stage III and stage II ulcerations) on his mid back Plan: - Local wound care on back wounds - Dressing and packing changed today, continue to monitor - Continue with Clinitron mattress - Obtain wound cultures - Transfuse PRN - Further recs per Dr. Chace Chen PGY1
--- NOTE | 2017-09-21 12:37 | CP.PCM.CON ---
History of Present Illness - History of Present Illness History of Present Illness: Palliative consult requested by Dr Lulu Abreu coped to Dr Lan Gavin Reason: Advance care planning/goals of care 52 year old male with history Waldenstrom's Microglobulinemia, A Fib, paraspinal abscess and MRSA bacteremia who presented with bleeding from spinal abscess site. His wound vac was recently removed from site when MRI showed no further evidence of osteomyolitis. He denied fever,chills,nausea,vomiting, chest pain or shortness of breath. He did complain of pressure tenderness at wound site. PMHx: Waldenstrom's Microglobulinemia s/p chemotherapy,chronic A Fib, HTN,COPD, pulmonary HTN, CAD,valvular disease, diverticulitis s/p perforation, colostomy, paraspinal abscess,MRSA bacteremia, bed bound. Social History: Former smoker, no alcohol or drug use. , lives with spouse and son. Family History: Non contributory. Advance Care Planning: The patient has a POLST : DNR/DNI. Review of Systems: As per HPI, review otherwise negative. Past Patient History - Infectious Disease Hx of Infectious Diseases: None - Past Social History Smoking Status: Former Smoker - CARDIAC Hx Cardia Arrhythmia: Yes (AFIB) - PULMONARY Hx Respiratory Disorders: Yes (H/O OF SMOKING CIGARETTES) - NEUROLOGICAL Hx Neurological Disorder: No Hx Transient Ischemic Attacks (TIA): No - HEENT Hx HEENT Problems: No Hx Blind: No Hx Cataracts: No Hx Deafness: No Hx Difficulty Chewing: No Hx Epistaxis: No Hx Glaucoma: No Hx Macular Degeneration: No - RENAL Hx Chronic Kidney Disease: No Hx Renal Failure: No - ENDOCRINE/METABOLIC Hx Endocrine Disorders: No Hx Diabetes Mellitus Type 1: No Hx Diabetes Mellitus Type 2: No - HEMATOLOGICAL/ONCOLOGICAL Hx Anemia: Yes Hx Cancer: Yes (Blood Cancer as per patient WALDENSTROM MACROGLOBULINEMIA (NON HODGKIN'S L)) - INTEGUMENTARY Other/Comment: cyst removed from back I/D. 08-22-17 BILATERAL LEG EDEMA +4 PATCHY BROWN SPOTS,DRY FLAKY SKIN. COLOSTOMY LEFT - MUSCULOSKELETAL/RHEUMATOLOGICAL Hx Musculoskeletal Disorders: Yes Hx Falls: Yes (past) - GASTROINTESTINAL Hx Gastrointestinal Disorders: Yes (colostomy) Hx Colostomy: Yes Hx Diverticulitis: Yes - GENITOURINARY/GYNECOLOGICAL Hx Genitourinary Disorders: No - PSYCHIATRIC Hx Psychophysiologic Disorder: No Hx Emotional Abuse: No Hx Physical Abuse: No Hx Substance Use: No - SURGICAL HISTORY Hx Cardiac Catheterization: Yes - ANESTHESIA Hx Anesthesia: Yes Hx Anesthesia Reactions: No Hx Malignant Hyperthermia: No Meds Allergies/Adverse Reactions: Allergies Allergy/AdvReac Type Severity Reaction Status Date / Time No Known Allergies Allergy Verified 09/01/17 15:05 - Medications Medications: Current Medications Carvedilol (Coreg) 3.125 mg PO DAILY [facility] Last Admin: 09/21/17 09:51 Dose: Not Given Digoxin (Lanoxin) 0.125 mg PO DAILY [facility] Last Admin: 09/21/17 09:51 Dose: 0.125 mg Lorazepam (Ativan) 0.5 mg PO HS [facility] PRN Reason: Protocol Last Admin: 09/21/17 01:33 Dose: Not Given Mirtazapine (Remeron) 22.5 mg PO HS [facility] Last Admin: 09/20/17 23:48 Dose: 22.5 mg Morphine Sulfate (Morphine) 4 mg IVP Q3H PRN PRN Reason: Pain, moderate (4-7) Last Admin: 09/21/17 09:49 Dose: 4 mg Physical Exam - Constitutional Appears: Cachectic, Chronically Ill - Head Exam Head Exam: NORMAL INSPECTION - Eye Exam Eye Exam: Normal appearance, PERRL - ENT Exam ENT Exam: Mucous Membranes Moist, Normal Oropharynx - Neck Exam Neck exam: Positive for: Normal Inspection - Respiratory Exam Respiratory Exam: Decreased Breath Sounds, NORMAL BREATHING PATTERN - Cardiovascular Exam Cardiovascular Exam: Irregular Rhythm, +S1, +S2 - GI/Abdominal Exam GI & Abdominal Exam: Normal Bowel Sounds, Soft Additional comments: colostomy stoma pink - Psychiatric Exam Psychiatric exam: Depressed - Skin Skin Exam: Dry, Pallor - Additional Findings Additional findings: Palliative performance scale rating 40% Results - Vital Signs Recent Vital Signs: Last Vital Signs Temp 98.9 F 09/21/17 07:00 Pulse 93 H 09/21/17 09:51 Resp 20 09/21/17 07:00 BP 88/56 L 09/21/17 09:51 Pulse Ox 100 09/21/17 07:00 - Labs Result Diagrams: 09/21/17 06:45 09/21/17 06:45 Labs: Laboratory Results - last 24 hr 09/19/17 09/19/17 09/20/17 05:00 07:20 13:40 WBC Cancelled 0.6 L* D RBC Cancelled 1.68 L Hgb Cancelled 5.2 L* Hct Cancelled 16.4 L* MCV Cancelled 97.6 MCH Cancelled 31.0 MCHC Cancelled 31.7 RDW Cancelled 19.0 H Plt Count Cancelled 17 L* MPV Cancelled 10.2 Gran % Cancelled 77.9 H Lymph % (Auto) Cancelled 13.6 L Bay % (Auto) Cancelled 8.5 H Eos % (Auto) Cancelled 0.0 L Baso % (Auto) Cancelled 0.0 Gran # Cancelled 0.46 L Lymph # Cancelled 0.1 L Bay # Cancelled 0.1 Eos # Cancelled 0.0 Baso # Cancelled 0.00 Sodium Cancelled Potassium Cancelled Chloride Cancelled Carbon Dioxide Cancelled Anion Gap Cancelled BUN Cancelled Creatinine Cancelled Est GFR ( Amer) Cancelled Est GFR (Non-Af Amer) Cancelled Random Glucose Cancelled Calcium Cancelled Total Bilirubin Cancelled AST Cancelled ALT Cancelled Alkaline Phosphatase Cancelled Total Protein Cancelled Albumin Cancelled Globulin Cancelled Albumin/Globulin Ratio Cancelled Blood Type Antibody Screen Crossmatch BBK History Checked 09/20/17 09/20/17 09/21/17 13:40 17:45 06:45 WBC 0.8 L* D RBC 2.10 L Hgb 6.2 L* Hct 20.0 L* MCV 95.2 MCH 29.5 MCHC 31.0 RDW 19.5 H Plt Count 15 L* MPV 9.4 Gran % 76.9 H Lymph % (Auto) 14.6 L Bay % (Auto) 8.5 H Eos % (Auto) 0.0 L Baso % (Auto) 0.0 Gran # 0.63 L Lymph # 0.1 L Bay # 0.1 Eos # 0.0 Baso # 0.00 Sodium 134 Potassium 4.2 Chloride 97 L Carbon Dioxide 30 Anion Gap 11 BUN 19 Creatinine 0.8 Est GFR ( Amer) > 60 Est GFR (Non-Af Amer) > 60 Random Glucose 125 H Calcium 8.8 Total Bilirubin AST ALT Alkaline Phosphatase Total Protein Albumin Globulin Albumin/Globulin Ratio Blood Type A NEGATIVE Antibody Screen Negative Crossmatch See Detail BBK History Checked Patient has bt 09/21/17 06:45 WBC RBC Hgb Hct MCV MCH MCHC RDW Plt Count MPV Gran % Lymph % (Auto) Bay % (Auto) Eos % (Auto) Baso % (Auto) Gran # Lymph # Bay # Eos # Baso # Sodium 136 Potassium 4.5 Chloride 96 L Carbon Dioxide 29 Anion Gap 15 BUN 17 Creatinine 0.7 L Est GFR ( Amer) > 60 Est GFR (Non-Af Amer) > 60 Random Glucose 108 Calcium 8.6 Total Bilirubin 2.4 H AST 12 L D ALT 19 Alkaline Phosphatase 64 Total Protein 7.9 Albumin 3.0 Globulin 5.0 Albumin/Globulin Ratio 0.6 L Blood Type Antibody Screen Crossmatch BBK History Checked Assessment & Plan - Assessment and Plan (Free Text) Assessment: 52 year old male with history of multiple comorbidities (see PMH) who was admitted with SIRS, pancytopenia, bleeding from paraspinal wound. The patient is known to me from previous admissions. He is alert, oriented with flat affect. He is bed bound and relies on others for most ADL's. Td has a copy of POLST on chart. Td affirms that he is DNR/DNI and that POLST of record is valid. He does not want to continue our conversation regarding future goals of care at this time, he states he is tired. Time spent in Advance Care planning discussion, 20 minutes Plan: Advance care planning
--- NOTE | 2017-09-21 20:09 | PN ---
DATE: SUBJECTIVE: The patient is a 52-year-old, seen and examined, lying in bed, seems to be depressed, and looks pale. Still has bleeding from his back wound. Eating and tolerating. PHYSICAL EXAMINATION: VITAL SIGNS: He is afebrile, pulse 93, respirations 18, and blood pressure /53. LUNGS: Bilateral fair airflow. No rhonchi or crackle. HEART: S1 and S2 audible. ABDOMEN: Soft. Colostomy in place. NEUROLOGIC: He is awake and alert. He is totally bed bound. Currently, he is on low-resistance mattress. LABORATORY DATA: WBC is 0.8, hemoglobin is 6.2, hematocrit is 20, and platelets of 15. Chemistry; sodium 136, potassium 4.5, chloride 96, CO2 of 29, BUN 17, creatinine 0.7, blood sugar of 108, and digoxin level is 0.6. ASSESSMENT: 1. Pancytopenia. 2. Waldenstrom's . 3. Cardiomyopathy. 4. Hypotension. 5. Status post colostomy. PLAN: As per Hematology, he is going to receive 2 blood transfusions and one infusion of platelet. I spoke to Dr. Td Mas, we will try to apply wound VAC on his back wound. Pepito Gavin MD
[2017-09-22] MEDS: Morphine 4 mg/ml ISec IVP PRN ×7 (03:18→22:27)
[2017-09-22 08:10] LABS: ALB/GLOB RATIO 0.6 (1.1-1.8); ALBUMIN 3.1 g/dL (3.0-4.8); ALT/SGPT 15 U/L (7-56); AST/SGOT 16 U/L (17-59); BLOOD UREA NITROGEN 17 mg/dL (7-21); CALCIUM 8.4 mg/dL (8.4-10.5); GFR AFRICAN-AMERICAN > 60; GFR NON-AFRICAN AMERICAN > 60
[2017-09-22 12:51] LABS: GRAN # 0.44 (1.4-6.5); GRAN % 77.2 % (50.0-68.0); LYMPH # 0.1 (1.2-3.4); MEAN CELL VOLUME 96.5 fl (80.0-105.0); MEAN CORPUSCULAR HGB CONC 31.1 g/dl (31.0-37.0); MONO # 0.1 (0.1-0.6); MONO % 8.8 % (1.0-6.0); RBC 2.27 10^6/uL (3.5-6.1); RED CELL DISTRIBUTION WIDTH 18.8 % (11.5-14.5)
[2017-09-22 13:00] LABS: HEMOGLOBIN 6.8 g/dL (14.0-18.0); PLATELET COUNT 21 10^3/uL (120.0-450.0); WHITE BLOOD COUNT 0.6 10^3/ul (4.5-11.0)
[2017-09-22] MEDS: Digoxin 125 mcg (0.125 mg) Tab PO SCH (13:07)
--- NOTE | 2017-09-22 13:57 | CON ---
HEMATOLOGY CONSULTATION HISTORY OF PRESENT ILLNESS: This is 52-year-old man, who has three major problems, 1. He has Waldenstrom macroglobulinemia. 2. 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 3. He has very severe back pain for which he is really not able to ambulate. 4. He has congestive heart failure, a very poor ejection fraction. Now considering the Waldenstrom, he had been on Leukeran pills. He has been off these pills now for several months due to his severe pancytopenia. His white count normally is around 0.8. His hemoglobin is around 6 and his platelets count is around 20, this precludes chemotherapy. However, more recently his hemoglobin has been dropping. We have been giving him outpatient transfusion, he gets a CBC every week and the last 2 or 3 weeks he has had 2 units of packed cells given. No platelets, no Neupogen. He is now readmitted because of bleeding from his wound area and the nurse says this is rather considerable, either way his hemoglobin had dropped down to about 4.5 and we had to give him transfusions, so he is status post 2 units of packed cells and platelets as of yesterday. I gave him the platelets because of the bleeding. We do not have the CBC back yet from today. PHYSICAL EXAMINATION: GENERAL: The patient is able to lie flat in bed and he is completely alert. SKIN: No petechiae. No bruises. HEENT: Anicteric. NODES: Nonpalpable in axillary, cervical, supraclavicular or inguinal regions. LUNGS: Clear at present. No vertebral tenderness. HEART: S1 and S2. ABDOMEN: Shows no liver, no spleen, no tenderness, no ascites, no rebound. EXTREMITIES: No edema. [employer]: Plantar's are downgoing bilaterally and he is completely alert. The big issue here is what to do about this pancytopenia. He is being seen and treated by physician in [place] in [facility], Dr. Saravia. I told Mrs. Garcia that I have sent a letter and the laboratory results of the last couple of weeks to Dr. Saravia, and I will let him know what is going on now and see what he can propose, but the patient is essentially bed bound and can only get to [place] by ambulance and has his other medical problems, particularly now the abscess is not healing, starting to bleed, and it is unclear what can be done for this. So at present, my role here is to watch a CBC weekly and determine whether he gets transfusions, and I will try to communicate with Dr. Saravia. Osvaldo MD Gaurav
--- NOTE | 2017-09-22 14:44 | CP.PCM.PN ---
Subjective - Date & Time of Evaluation Date of Evaluation: 09/22/17 Time of Evaluation: 14:40 - Subjective Subjective: General Surgery - Dr. Mas Patient seen and examined at bedside. No acute events reported overnight. Patient with wound dressing changes today. Patient complains of body aches and pain associated with wound dressing changed. Denies chest pain, shob, abdominal discomfort, nausea, vomiting, fever, chills. Objective - Vital Signs/Intake and Output Vital Signs (last 24 hours): Temp Pulse Resp BP Pulse Ox 99.2 F 90 18 83/56 L 100 09/22/17 08:00 09/22/17 08:00 09/22/17 08:00 09/22/17 08:00 09/22/17 08:00 Intake and Output: 09/22/17 09/22/17 06:59 18:59 Intake Total 1194 Output Total 500 Balance 694 - Medications Medications: Current Medications Carvedilol (Coreg) 3.125 mg PO DAILY [facility] Last Admin: 09/22/17 13:08 Dose: Not Given Digoxin (Lanoxin) 0.125 mg PO DAILY [facility] Last Admin: 09/22/17 13:07 Dose: 0.125 mg Lorazepam (Ativan) 0.5 mg PO [facility] PRN Reason: Protocol Last Admin: 09/22/17 00:30 Dose: Not Given Mirtazapine (Remeron) 22.5 mg PO HS [facility] Last Admin: 09/22/17 00:22 Dose: 22.5 mg Morphine Sulfate (Morphine) 4 mg IVP Q3H PRN PRN Reason: Pain, moderate (4-7) Last Admin: 09/22/17 13:07 Dose: 4 mg - Labs Labs: 09/22/17 12:40 09/22/17 07:30 PT 16.0 SECONDS (9.4-12.5) H 09/17/17 23:00 INR 1.46 (0.93-1.08) H 09/17/17 23:00 APTT 42.7 Seconds (25.1-36.5) H 09/17/17 23:00 - Constitutional Appears: No Acute Distress - Head Exam Head Exam: ATRAUMATIC - Eye Exam Eye Exam: EOMI Pupil Exam: PERRL - ENT Exam ENT Exam: Mucous Membranes Moist - Respiratory Exam Respiratory Exam: NORMAL BREATHING PATTERN. absent: Rales, Rhonchi, Wheezes - Cardiovascular Exam Cardiovascular Exam: REGULAR RHYTHM, +S1, +S2 - Extremities Exam Additional comments: LE edema and bruising b/l - Back Exam Additional comments: Patient with two mid ulcers at mid back, - largest ulcer graded as stage III [id number] with 1cm depth with undermining, mild serosanguenous fluid oozing during dressing change, foul odor appreciated, dressing and packing changed - Smaller ulcer more lateral to larger ulcer, graded as stage II noted to be 2cm x 2cm with minimal depth, appears to have more serosanguenous drainage with moderate oozing, dressing changed - Neurological Exam Neurological Exam: Alert, Awake, Oriented x3 - Psychiatric Exam Psychiatric exam: Normal Affect, Normal Mood - Skin Skin Exam: Dry, Intact Assessment and Plan - Assessment and Plan (Free Text) Assessment: 52 year old male with neutropenia with two wound(stage III and stage II ulcerations) on his mid back Plan: - Local wound care on back wounds, change daily - Dressing and packing changed today, continue to monitor - Continue with Clinitron mattress - Follow platelets - Transfuse PRN - Further recs per Dr. Chace Chen PGY1
--- NOTE | 2017-09-22 21:22 | PN ---
DATE: SUBJECTIVE: The patient is 52-year-old, seen and examined, lying in bed, very worried, anxious, depressed, not eating that well. He does not like hospital food. PHYSICAL EXAMINATION: VITAL SIGNS: He has temperature 99.2, pulse 90, respirations 18, and blood pressure 83/56. LUNGS: Bilateral fair airflow. No rhonchi or crackle. HEART: S1 and S2 audible. ABDOMEN: Soft. Colostomy in place. No rebound. No guarding. NEUROLOGIC: He is awake and alert. Bilateral legs, scaly skin. LABORATORY DATA: WBC is 0.6, hemoglobin 6.8, hematocrit 21.9, and platelets of 21. Chemistry; sodium 134, potassium 4.3, chloride 97, CO2 of 31, BUN 17, creatinine 0.7, blood sugar of 106. LFTs are within normal limit except total bili is 2.6. ASSESSMENT AND PLAN: 1. Pancytopenia. 2. Waldenstrom gammaglobulinemia. 3. Nonischemic cardiomyopathy. 4. Nonhealing parathoracic region wound that has been intermittently bleeding and never got a chance to heal. 5. Depression. 6. Anemia. 7. Intermittent atrial fibrillation. Prognosis is poor. The patient is bed bound. The patient is DNR. Dr. Nolasco is following the patient and he is monitoring if the patient needs blood transfusion or platelet infusion and Dr. Td Mas is following the patient. Pepito Gavin MD
[2017-09-23] MEDS: Morphine 4 mg/ml ISec IVP PRN ×7 (02:50→22:51)
[2017-09-23 07:17] LABS: GRAN # 0.44 (1.4-6.5); GRAN % 65.7 % (50.0-68.0); LYMPH # 0.2 (1.2-3.4); LYMPH % 23.9 % (22.0-35.0); MEAN CELL VOLUME 95.7 fl (80.0-105.0); MEAN CORPUSCULAR HEMOGLOBIN 29.9 pg (25.0-35.0); MEAN CORPUSCULAR HGB CONC 31.2 g/dl (31.0-37.0); MEAN PLATELET VOLUME 9.5 fl (7.0-11.0); MONO # 0.1 (0.1-0.6); MONO % 10.4 % (1.0-6.0); RBC 2.31 10^6/uL (3.5-6.1); RED CELL DISTRIBUTION WIDTH 18.7 % (11.5-14.5)
[2017-09-23 07:38] LABS: HEMOGLOBIN 6.9 g/dL (14.0-18.0); PLATELET COUNT 19 10^3/uL (120.0-450.0); WHITE BLOOD COUNT 0.7 10^3/ul (4.5-11.0)
--- NOTE | 2017-09-23 09:02 | CP.PCM.PN ---
Subjective - Date & Time of Evaluation Date of Evaluation: 09/23/17 Time of Evaluation: 08:58 - Subjective Subjective: General Surgery - Dr. Mas Patient seen and examined this AM. No acute events reported overnight. Patient continues to express discomfort with bandage change and dissatisfaction with bed and his positioning. Patient expresses concern regarding ulcers and possibility for infection. Patient denies chest pain, shortness of breath, abdominal discomfort, nausea, vomiting, fever, chills. Objective - Vital Signs/Intake and Output Vital Signs (last 24 hours): Temp Pulse Resp BP Pulse Ox 99 F 89 22 92/64 L 98 09/23/17 00:00 09/23/17 00:00 09/23/17 00:00 09/23/17 00:00 09/23/17 00:00 Intake and Output: 09/23/17 09/23/17 06:59 18:59 Intake Total 420 Output Total 650 Balance -230 - Medications Medications: Current Medications Carvedilol (Coreg) 3.125 mg PO DAILY [facility] Last Admin: 09/22/17 13:08 Dose: Not Given Digoxin (Lanoxin) 0.125 mg PO DAILY [facility] Last Admin: 09/22/17 13:07 Dose: 0.125 mg Lorazepam (Ativan) 0.5 mg PO [facility] PRN Reason: Protocol Last Admin: 09/22/17 22:29 Dose: 0.5 mg Mirtazapine (Remeron) 22.5 mg PO [facility] Last Admin: 09/22/17 22:29 Dose: 22.5 mg Morphine Sulfate (Morphine) 4 mg IVP Q3H PRN PRN Reason: Pain, moderate (4-7) Last Admin: 09/23/17 06:39 Dose: 4 mg - Labs Labs: 09/23/17 06:45 09/22/17 07:30 PT 16.0 SECONDS (9.4-12.5) H 09/17/17 23:00 INR 1.46 (0.93-1.08) H 09/17/17 23:00 APTT 42.7 Seconds (25.1-36.5) H 09/17/17 23:00 - Constitutional Appears: No Acute Distress - Head Exam Head Exam: ATRAUMATIC - Eye Exam Eye Exam: EOMI, PERRL - ENT Exam ENT Exam: Mucous Membranes Dry Additional comments: Poor dentation - Neck Exam Neck Exam: Full ROM - Respiratory Exam Respiratory Exam: NORMAL BREATHING PATTERN. absent: Rhonchi, Wheezes - Cardiovascular Exam Cardiovascular Exam: +S1, +S2. absent: Bradycardia - GI/Abdominal Exam GI & Abdominal Exam: Soft. absent: Tenderness Additional comments: ostomy in place, - Extremities Exam Extremities Exam: absent: Calf Tenderness - Back Exam Additional comments: Patient with two mid ulcers at mid back, - largest ulcer graded as stage III [id number] with 1cm depth with undermining, mild serosanguenous fluid oozing during dressing change, foul odor appreciated, dressing and packing changed - Smaller ulcer more lateral to larger ulcer, graded as stage II noted to be 3cm x 2cm with minimal depth, appears to have more serosanguenous drainage with moderate oozing, dressing changed - Neurological Exam Neurological Exam: Alert, Awake, Oriented x3 - Psychiatric Exam Psychiatric exam: Anxious, Depressed - Skin Skin Exam: Dry, Intact, Pallor Assessment and Plan - Assessment and Plan (Free Text) Assessment: 52 year old male with neutropenia with two non healing wound(stage III and stage II ulcerations) on his mid to lateral right back Plan: - Local wound care on back wounds, change daily - Wound culture, f/u results - Dressing and packing changed today, continue to monitor - Continue with Clinitron mattress - Follow platelets - Transfuse PRN - Further recs per Dr. Chace Chen PGY-1
[2017-09-23] MEDS: Digoxin 125 mcg (0.125 mg) Tab PO SCH (10:01)
--- NOTE | 2017-09-23 19:11 | PN ---
SUBJECTIVE: Patient is 52 years old, seen and examined, lying in bed, seems to be depressed and upset. He has no energy, has no appetite, complained of nausea. PHYSICAL EXAMINATION VITAL SIGNS: He is afebrile, pulse 80, respirations 22, blood pressure 100/65. LUNGS: Bilateral good airflow. No rhonchi or crackle. HEART: S1 and S2 audible. ABDOMEN: Soft and nontender. No rebound. No guarding. NEUROLOGIC: The patient is awake, alert, oriented, able to communicate and basically bed bound, functional. LABORATORY DATA: WBC 0.7, hemoglobin 6.9,hematocrit 22.1, platelets of 19. Chemistry, sodium 134, potassium 4.3, chloride 97, CO2 of 31, BUN 17, creatinine 0.7, blood sugar of 106. ASSESSMENT: 1. Pancytopenia. 2. Waldenstrom gammaglobulinemia. 3. History of hypertension, currently running hypotensive. 4. Paraspinal wound was dressed by surgical team. PLAN: At this point, I will discuss with surgical team if anything has to be done he can be discharged in a.m. and have visiting nurse to take care of his wounds. Pepito Gavin MD
[2017-09-24] MEDS: Morphine 4 mg/ml ISec IVP PRN ×7 (03:01→21:25)
[2017-09-24 07:38] LABS: GRAN # 0.47 (1.4-6.5); GRAN % 61.9 % (50.0-68.0); LYMPH # 0.2 (1.2-3.4); LYMPH % 19.7 % (22.0-35.0); MEAN CELL VOLUME 95.9 fl (80.0-105.0); MEAN CORPUSCULAR HEMOGLOBIN 30.7 pg (25.0-35.0); MEAN CORPUSCULAR HGB CONC 32.1 g/dl (31.0-37.0); MEAN PLATELET VOLUME 10.6 fl (7.0-11.0); MONO # 0.1 (0.1-0.6); MONO % 18.4 % (1.0-6.0); RBC 2.18 10^6/uL (3.5-6.1); RED CELL DISTRIBUTION WIDTH 18.4 % (11.5-14.5)
[2017-09-24 08:00] LABS: HEMOGLOBIN 6.7 g/dL (14.0-18.0); PLATELET COUNT 19 10^3/uL (120.0-450.0); WHITE BLOOD COUNT 0.8 10^3/ul (4.5-11.0)
[2017-09-24 08:01] LABS: ALB/GLOB RATIO 0.6 (1.1-1.8); ALBUMIN 3.1 g/dL (3.0-4.8); ALT/SGPT 15 U/L (7-56); AST/SGOT 15 U/L (17-59); BLOOD UREA NITROGEN 18 mg/dL (7-21); CALCIUM 8.7 mg/dL (8.4-10.5); GFR AFRICAN-AMERICAN > 60; GFR NON-AFRICAN AMERICAN > 60
--- NOTE | 2017-09-24 09:22 | CP.PCM.PN ---
Subjective - Date & Time of Evaluation Date of Evaluation: 09/24/17 Time of Evaluation: 09:17 - Subjective Subjective: General Surgery - Dr. Mas Patient seen and evaluated at bedside. No acute events reported overnight. Patient continues to express dissatisfaction with current air mattress. Denies chest pain, shortness of breath, abdominal pain, vomiting, fever, chills. Objective - Vital Signs/Intake and Output Vital Signs (last 24 hours): Temp Pulse Resp BP Pulse Ox 98.7 F 80 22 100/65 97 09/23/17 06:00 09/23/17 06:00 09/23/17 06:00 09/23/17 06:00 09/23/17 06:00 Intake and Output: 09/24/17 09/24/17 06:59 18:59 Intake Total 600 Output Total 950 Balance -350 - Medications Medications: Current Medications Carvedilol (Coreg) 3.125 mg PO DAILY [facility] Last Admin: 09/23/17 16:00 Dose: Not Given Digoxin (Lanoxin) 0.125 mg PO DAILY [facility] Last Admin: 09/23/17 10:01 Dose: 0.125 mg Lorazepam (Ativan) 0.5 mg PO [facility] PRN Reason: Protocol Last Admin: 09/23/17 22:52 Dose: 0.5 mg Mirtazapine (Remeron) 22.5 mg PO [facility] Last Admin: 09/23/17 22:52 Dose: 22.5 mg Morphine Sulfate (Morphine) 4 mg IVP Q3H PRN PRN Reason: Pain, moderate (4-7) Last Admin: 09/24/17 06:23 Dose: 4 mg Ondansetron HCl (Zofran Inj) 4 mg IVP Q6H PRN PRN Reason: Nausea/Vomiting Last Admin: 09/24/17 06:25 Dose: 4 mg - Labs Labs: 09/24/17 07:30 09/24/17 07:30 PT 16.0 SECONDS (9.4-12.5) H 09/17/17 23:00 INR 1.46 (0.93-1.08) H 09/17/17 23:00 APTT 42.7 Seconds (25.1-36.5) H 09/17/17 23:00 - Constitutional Appears: Non-toxic - Head Exam Head Exam: ATRAUMATIC - Eye Exam Eye Exam: EOMI, PERRL - ENT Exam ENT Exam: Mucous Membranes Dry - Respiratory Exam Respiratory Exam: NORMAL BREATHING PATTERN. absent: Rhonchi, Wheezes - Cardiovascular Exam Cardiovascular Exam: REGULAR RHYTHM, +S1, +S2 - GI/Abdominal Exam GI & Abdominal Exam: Soft. absent: Firm, Guarding, Tenderness Additional comments: ileostomy bag in place, no leakage detected - Extremities Exam Extremities Exam: absent: Calf Tenderness - Back Exam Additional comments: Patient with two mid ulcers at mid back - largest ulcer graded as stage III [id number] with 1cm depth with undermining, minimal drainage, odor appreciated, dressing and packing changed - Smaller ulcer more lateral to larger ulcer on right side, graded as stage II noted to be 2.5cm x 2cm with minimal depth, appears to have more serosanguenous drainage with moderate oozing, dressing changed - Neurological Exam Neurological Exam: Alert, Awake, Oriented x3 Additional comments: patient able to move all four extremities - Psychiatric Exam Psychiatric exam: Anxious - Skin Skin Exam: Dry, Intact, Pallor, Warm. absent: Rash Additional comments: bruising noted on abdomen, bilateral lower extremities Assessment and Plan - Assessment and Plan (Free Text) Assessment: 52 year old male with neutropenia with two non healing wound(stage III and stage II ulcerations) on his mid to lateral right back at the thoracic level Plan: - Local wound care on back wounds, change daily - Wound gram stain rare gram positive cocci - Wound culture, f/u results - Continue with Clinitron mattress - Patient will require Clinitron mattress(air fluidized Bed) for continued wound healing and alleviation of pain - Patient okay for discharge from surgery with continued wound care and dressing changes daily - Further recs per Dr. Chace Chen PGY-1
[2017-09-24] MEDS: Digoxin 125 mcg (0.125 mg) Tab PO SCH (09:40)
--- NOTE | 2017-09-24 19:53 | PN ---
DATE: SUBJECTIVE: The patient is 52-year-old. Seen and examined, sleepy, but arousable. No nausea or vomiting. No diarrhea. PHYSICAL EXAMINATION: GENERAL: The patient is awake, alert, oriented, and communicative. VITAL SIGNS: The patient is afebrile, pulse 80, respiration 22, blood pressure 100/65. LUNGS: Bilateral fair airflow. Few expiratory occasional rhonchi. HEART: S1 and S2 audible. ABDOMEN: Soft. Colostomy in place. No blood. Colostomy has been brownish liquid stool. EXTREMITIES: Bilateral leg, dry scaly skin. He has paraspinal lumbar area wound that is dressed by the surgical team. LABORATORY EXAMINATION: WBC 0.8, hemoglobin 6.7, hematocrit 20.9, platelet of 19. Chemistry; sodium 134, potassium 4.5, chloride 96, CO2 of 30, BUN 18, creatinine 0.6, blood sugar of 104. ASSESSMENT: 1. Pancytopenia. 2. Waldenstrom gammaglobulinemia. 3. Debility, deconditioning. 4. Bed bound. 5. Lumbar. 6. Stage III 4 x 5 cm deep ulcer. PLAN: At this point, prognosis is poor. The patient is very upset and depressed about his prognosis and diagnosis. He is scared to go home, although I explained to him there is nothing much more can be done until the wound is healed. He is not a candidate of chemotherapy. I advised him to be discharged and be at home with visiting nurses will take care of his wound, but he states he does not want to leave until he talk to Dr. Nolasco, so after Dr. Nolasoc visit the patient, he can be discharge and will be followed with him as outpatient. Pepito Gavin MD
[2017-09-25] MEDS: Morphine 4 mg/ml ISec IVP PRN ×7 (00:56→23:34)
--- NOTE | 2017-09-25 10:36 | PN ---
DATE: 09/25/2017 SUBJECTIVE: The patient has no complaints of any chest pain. He states his pain is still there. He does use pain medication. His pain is 5/10. PHYSICAL EXAMINATION: VITAL SIGNS: Temperature is 98.3, pulse of 89, blood pressure is 91/57, and respirations are 20. GENERAL: The patient is lying in bed, flat, comfortable. HEENT: No oral lesion. Anicteric sclerae. Moist mucosa. NECK: No JVD, adenopathy, or thyromegaly. CARDIOVASCULAR: S1 and S2, regular. No murmurs, rubs, or gallops. LUNGS: Clear to auscultation bilaterally. No wheeze, rales, or rhonchi. ABDOMEN: Bowel sounds are positive, soft, nontender and nondistended. EXTREMITIES: No cyanosis, clubbing or edema. LABORATORY DATA: Labs are reviewed. The patient has white count of 0.8, hemoglobin of 6.7, and platelets of 19. ASSESSMENT: 1. Pancytopenia. 2. Waldenstrom gammaglobulinemia. 3. Stage III sacral pressure ulcer 4 x 5 cm. PLAN: The patient is currently on neutropenic precaution. The patient is on carvedilol. He is going to be on morphine for pain. The patient is on Remeron. He is going to continue Zofran. The patient is being followed by Dr. Mas from Surgery and Dr. Nolasco from Hematology. Waqas Dixon MD
[2017-09-25] MEDS: Digoxin 125 mcg (0.125 mg) Tab PO SCH (10:55)
--- NOTE | 2017-09-25 13:51 | CP.PCM.PN ---
Subjective - Date & Time of Evaluation Date of Evaluation: 09/25/17 Time of Evaluation: 08:00 - Subjective Subjective: Surgery: Dr. Mas Pt seen and examined. Continues to have chronic pain and states he was suppose to go home yesterday however, he doesn't want to go home until his home bed is arranged with the air mattress for his chronic pressure wounds. States he is tolerating his diet and denies N/V, F/C. Objective - Vital Signs/Intake and Output Vital Signs (last 24 hours): Temp Pulse Resp BP Pulse Ox 99.2 F 89 20 91/57 L 96 09/25/17 08:00 09/25/17 10:50 09/25/17 08:00 09/25/17 10:50 09/25/17 08:00 Intake and Output: 09/25/17 09/25/17 06:59 18:59 Intake Total 360 Output Total 450 Balance -90 - Medications Medications: Current Medications Carvedilol (Coreg) 3.125 mg PO DAILY [facility] Last Admin: 09/25/17 10:50 Dose: 3.125 mg Digoxin (Lanoxin) 0.125 mg PO DAILY [facility] Last Admin: 09/25/17 10:55 Dose: 0.125 mg Lorazepam (Ativan) 0.5 mg PO [facility] PRN Reason: Protocol Last Admin: 09/24/17 21:24 Dose: 0.5 mg Mirtazapine (Remeron) 22.5 mg PO HS [facility] Last Admin: 09/24/17 21:25 Dose: 22.5 mg Morphine Sulfate (Morphine) 4 mg IVP Q3H PRN PRN Reason: Pain, moderate (4-7) Last Admin: 09/25/17 10:59 Dose: 4 mg Ondansetron HCl (Zofran Inj) 4 mg IVP Q6H PRN PRN Reason: Nausea/Vomiting Last Admin: 09/24/17 06:25 Dose: 4 mg - Labs Labs: 09/24/17 07:30 09/24/17 07:30 PT 16.0 SECONDS (9.4-12.5) H 09/17/17 23:00 INR 1.46 (0.93-1.08) H 09/17/17 23:00 APTT 42.7 Seconds (25.1-36.5) H 09/17/17 23:00 - Constitutional Appears: No Acute Distress - ENT Exam ENT Exam: Mucous Membranes Moist - Cardiovascular Exam Cardiovascular Exam: RRR - GI/Abdominal Exam GI & Abdominal Exam: Soft. absent: Tenderness - Back Exam Additional comments: pressure ulcers on b/l upper back with packing and optifoam dressing. No active bleeding noted. - Neurological Exam Neurological Exam: Alert, Awake, Oriented x3 - Skin Skin Exam: Dry, Warm Assessment and Plan - Assessment and Plan (Free Text) Assessment: 52M with chronic pressure wounds on back Plan: - cont local wound care with daily packing changes, nonadhesive dressing & optifoam as per wound care nurse - no further surgical intervention needed at this time - d/w Dr. Chace Harper, PGY-3 Surgery
[2017-09-26] MEDS: Morphine 4 mg/ml ISec IVP PRN ×7 (02:37→22:38)
[2017-09-26] MEDS: Digoxin 125 mcg (0.125 mg) Tab PO SCH (09:15)
--- NOTE | 2017-09-26 13:52 | PN ---
DATE: SUBJECTIVE: The patient has no complaints of any chest pain or shortness of breath. No headaches. PHYSICAL EXAMINATION: VITAL SIGNS: Temperature is 98.3, pulse of 105, blood pressure is 93/54, and respirations 19. GENERAL: The patient is lying in bed, flat, comfortable. HEENT: No oral lesion. Anicteric sclerae. Moist mucosa. NECK: No JVD, adenopathy, or thyromegaly. CARDIOVASCULAR: S1 and S2, regular. No murmurs, rubs, or gallops. LUNGS: Clear to auscultation bilaterally. No wheeze, rales, or rhonchi. ABDOMEN: Bowel sounds are positive, soft, nontender and nondistended. EXTREMITIES: No cyanosis, clubbing or edema. ASSESSMENT: 1. Stage III sacral pressure ulcers among others. 2. Pancytopenia. 3. Waldenstrom gammaglobulinemia. 4. Do not resuscitate/do not intubate. PLAN: The patient is getting local wound care. The patient is on carvedilol and Lasix. There are going to be no further surgical interventions. The patient is on morphine for pain. He is on Remeron. He is getting oxygen. The patient is being followed by Dr. Nolasco and Dr. Mas. Appreciate their input. Waqas Dixon MD
[2017-09-27] MEDS: Morphine 4 mg/ml ISec IVP PRN ×6 (01:32→23:13)
[2017-09-27 07:56] LABS: MEAN CELL VOLUME 96.3 fl (80.0-105.0); MEAN CORPUSCULAR HEMOGLOBIN 30.2 pg (25.0-35.0); MEAN CORPUSCULAR HGB CONC 31.3 g/dl (31.0-37.0); MEAN PLATELET VOLUME 11.2 fl (7.0-11.0); RBC 1.89 10^6/uL (3.5-6.1); RED CELL DISTRIBUTION WIDTH 18.5 % (11.5-14.5)
[2017-09-27 08:04] LABS: WHITE BLOOD COUNT 0.9 10^3/ul (4.5-11.0)
[2017-09-27 08:05] LABS: HEMOGLOBIN 5.7 g/dL (14.0-18.0); PLATELET COUNT 17 10^3/uL (120.0-450.0)
[2017-09-27 08:23] LABS: ALB/GLOB RATIO 0.6 (1.1-1.8); ALBUMIN 3.1 g/dL (3.0-4.8); ALT/SGPT 13 U/L (7-56); AST/SGOT 16 U/L (17-59); BLOOD UREA NITROGEN 23 mg/dL (7-21); CALCIUM 8.9 mg/dL (8.4-10.5); GFR AFRICAN-AMERICAN > 60; GFR NON-AFRICAN AMERICAN > 60; MAGNESIUM 1.9 mg/dL (1.7-2.2)
[2017-09-27] MEDS ORDERED: MethylPREDNISolone 40 mg Vial IVP ONE (10:12)
[2017-09-27] MEDS: Digoxin 125 mcg (0.125 mg) Tab PO SCH (11:42)
[2017-09-27] MEDS ORDERED: MethylPREDNISolone 40 mg Vial ONE (16:34)
[2017-09-27 16:46] LABS: IMMUNOGLOBULIN A < 40.0 mg/dL (70.0-400.0); IMMUNOGLOBULIN G 308.2 mg/dL (700.0-1600.0)
[2017-09-27 19:03] LABS: IMMUNOGLOBULIN M > 2000.0 mg/dL (40.0-230.0)
--- NOTE | 2017-09-27 23:02 | PN ---
DATE: 09/27/2017 SUBJECTIVE: The patient has no complaints of any chest pain or shortness of breath. He says he was not able to sleep well yesterday. PHYSICAL EXAMINATION: VITAL SIGNS: Temperature is 98.3, pulse of 100, blood pressure is 80/45, and respirations of 22. GENERAL: The patient is lying in bed, flat, comfortable. HEENT: No oral lesion. Anicteric sclerae. Moist mucosa. NECK: No JVD, adenopathy, or thyromegaly. CARDIOVASCULAR: S1 and S2, regular. No murmurs, rubs, or gallops. LUNGS: Clear to auscultation bilaterally. No wheeze, rales, or rhonchi. ABDOMEN: Bowel sounds are positive, soft, nontender and nondistended. EXTREMITIES: No cyanosis, clubbing or edema. LABORATORY DATA: White count of 0.9, hemoglobin of 5.7, and creatinine of 0.8. ASSESSMENT: 1. Stage III sacral pressure ulcer. 2. Pancytopenia. 3. Waldenstrom's gammaglobulinemia. 4. Do not resuscitate/do not intubate. PLAN: The patient is currently comfortable. He is on carvedilol. He received a unit of transfusion. The patient is on morphine for pain. He is going to continue with Remeron and the patient is on Zofran as needed. He will need a repeat blood work done tomorrow. Overall prognosis is guarded. Waqas Dixon MD
[2017-09-28] MEDS: Morphine 4 mg/ml ISec IVP PRN ×6 (04:10→22:57)
[2017-09-28 07:52] LABS: GRAN # 0.61 (1.4-6.5); GRAN % 80.3 % (50.0-68.0); LYMPH # 0.1 (1.2-3.4); LYMPH % 11.8 % (22.0-35.0); MEAN CELL VOLUME 94.6 fl (80.0-105.0); MEAN CORPUSCULAR HEMOGLOBIN 29.9 pg (25.0-35.0); MEAN CORPUSCULAR HGB CONC 31.6 g/dl (31.0-37.0); MONO # 0.1 (0.1-0.6); MONO % 7.9 % (1.0-6.0); RBC 2.04 10^6/uL (3.5-6.1)
[2017-09-28 08:00] LABS: HEMOGLOBIN 6.1 g/dL (14.0-18.0); PLATELET COUNT 14 10^3/uL (120.0-450.0); WHITE BLOOD COUNT 0.8 10^3/ul (4.5-11.0)
[2017-09-28] MEDS: Vancomycin 1gm in NS 250ml 1 GM/250 ML BAG IVPB SCH ×2 (08:23→17:42)
[2017-09-28] MEDS: Digoxin 125 mcg (0.125 mg) Tab PO SCH (09:25)
[2017-09-28] MEDS: Cefepime IV 2 gm in NS 2 GM/100 ML BAG IVPB SCH ×3 (09:26→23:27)
--- NOTE | 2017-09-28 12:28 | CP.PCM.PN ---
<Basilio Rubio - Last Filed: 09/28/17 12:30> Subjective - Date & Time of Evaluation Date of Evaluation: 09/28/17 Time of Evaluation: 12:30 - Subjective Subjective: Infectious disease progress note. Attending: Dr. Schmidt. Pt seen and examined at bedside. No acute distress. Pt with fever post blood transfusion. No fevers this morning or overnight. Denies vomiting, diarrhea, chest pain, dizziness, abdominal pain. On neutropenic precautions. Objective - Vital Signs/Intake and Output Vital Signs (last 24 hours): Temp Pulse Resp BP Pulse Ox 97.4 F L 93 H 20 87/56 L 98 09/28/17 08:00 09/28/17 09:24 09/28/17 08:00 09/28/17 09:24 09/28/17 08:00 Intake and Output: 09/28/17 09/28/17 06:59 18:59 Intake Total 938 Output Total 650 Balance 288 - Medications Medications: Current Medications Carvedilol (Coreg) 3.125 mg PO DAILY [facility] Last Admin: 09/28/17 09:24 Dose: Not Given Digoxin (Lanoxin) 0.125 mg PO DAILY [facility] Last Admin: 09/28/17 09:25 Dose: 0.125 mg Cefepime HCl (Maxipime 2gm) 2 gm in 100 mls @ 100 mls/hr IVPB Q8 [facility] PRN Reason: Protocol Stop: 10/03/17 06:31 Last Admin: 09/28/17 09:26 Dose: 100 mls/hr Vancomycin HCl (Vancomycin 1gm) 1 gm in 250 mls @ 167 mls/hr IVPB Q12H [facility] PRN Reason: Protocol Last Admin: 09/28/17 08:23 Dose: 167 mls/hr Lorazepam (Ativan) 0.5 mg PO HS [facility] PRN Reason: Protocol Last Admin: 09/27/17 23:13 Dose: 0.5 mg Mirtazapine (Remeron) 22.5 mg PO HS [facility] Last Admin: 09/27/17 23:12 Dose: 22.5 mg Morphine Sulfate (Morphine) 4 mg IVP Q3H PRN PRN Reason: Pain, moderate (4-7) Last Admin: 09/28/17 12:21 Dose: 4 mg Ondansetron HCl (Zofran Inj) 4 mg IVP Q6H PRN PRN Reason: Nausea/Vomiting Last Admin: 09/26/17 05:38 Dose: 4 mg Sodium Chloride ([place] Nasal [place]) 0 ml NS BID [facility] Last Admin: 09/28/17 12:22 Dose: 1 spr - Labs Labs: 09/28/17 07:30 09/27/17 07:00 PT 16.0 SECONDS (9.4-12.5) H 09/17/17 23:00 INR 1.46 (0.93-1.08) H 09/17/17 23:00 APTT 42.7 Seconds (25.1-36.5) H 09/17/17 23:00 - Constitutional Appears: No Acute Distress, Chronically Ill - Head Exam Head Exam: ATRAUMATIC, NORMAL INSPECTION, NORMOCEPHALIC - Eye Exam Eye Exam: EOMI - ENT Exam ENT Exam: Mucous Membranes Moist - Neck Exam Neck Exam: Full ROM - Respiratory Exam Respiratory Exam: absent: Respiratory Distress - Cardiovascular Exam Cardiovascular Exam: +S1, +S2 - GI/Abdominal Exam GI & Abdominal Exam: Soft, Normal Bowel Sounds. absent: Tenderness - Extremities Exam Extremities Exam: Full ROM, Normal Inspection - Back Exam Back Exam: absent: NORMAL INSPECTION Additional comments: pressure ulcers on B/L upper back with packing and dressing. no bleeding noted. minimal oozing. - Neurological Exam Neurological Exam: Alert, Awake - Psychiatric Exam Psychiatric exam: Flat Affect Assessment and Plan - Assessment and Plan (Free Text) Assessment: This is a 52 yo male with past medical hx of Waldenstrom's macroglobulinemia, s/ p chemotherapy, a fib, diverticulitis, stoma infection, MRSE bacteremia. ID consulted for febrile neutropenia. 1. Febrile neutropenia -neutropenic precautions in place -absolute neutrophil count of 642, signifying moderate severity neutropenia -wound culture positive for enterobacter and group G streptococcus -blood cultures pending -urine culture pending -white count of .8 today -currently afebrile -pt is high risk with numerous comorbidities -continue cefepime 2 g IV q 8 hrs -continue vancomycin 1 g q 12 hrs -continue management per sx <Rashi Schmidt S - Last Filed: 09/28/17 16:26> Objective - Vital Signs/Intake and Output Vital Signs (last 24 hours): Temp Pulse Resp BP Pulse Ox 97.4 F L 93 H 20 87/56 L 98 09/28/17 08:00 09/28/17 09:24 09/28/17 08:00 09/28/17 09:24 09/28/17 08:00 Intake and Output: 09/28/17 09/28/17 06:59 18:59 Intake Total 938 Output Total 650 Balance 288 - Medications Medications: Current Medications Carvedilol (Coreg) 3.125 mg PO DAILY [facility] Last Admin: 09/28/17 09:24 Dose: Not Given Digoxin (Lanoxin) 0.125 mg PO DAILY [facility] Last Admin: 09/28/17 09:25 Dose: 0.125 mg Cefepime HCl (Maxipime 2gm) 2 gm in 100 mls @ 100 mls/hr IVPB Q8 [facility] PRN Reason: Protocol Stop: 10/03/17 06:31 Last Admin: 09/28/17 13:38 Dose: 100 mls/hr Vancomycin HCl (Vancomycin 1gm) 1 gm in 250 mls @ 167 mls/hr IVPB Q12H [facility] PRN Reason: Protocol Last Admin: 09/28/17 08:23 Dose: 167 mls/hr Lorazepam (Ativan) 0.5 mg PO HS [facility] PRN Reason: Protocol Last Admin: 09/27/17 23:13 Dose: 0.5 mg Mirtazapine (Remeron) 22.5 mg PO HS [facility] Last Admin: 09/27/17 23:12 Dose: 22.5 mg Morphine Sulfate (Morphine) 4 mg IVP Q3H PRN PRN Reason: Pain, moderate (4-7) Last Admin: 09/28/17 15:49 Dose: 4 mg Ondansetron HCl (Zofran Inj) 4 mg IVP Q6H PRN PRN Reason: Nausea/Vomiting Last Admin: 09/26/17 05:38 Dose: 4 mg Sodium Chloride ([place] Nasal [place]) 0 ml NS BID [facility] Last Admin: 09/28/17 12:22 Dose: 1 spr - Labs Labs: 09/28/17 07:30 09/27/17 07:00 PT 16.0 SECONDS (9.4-12.5) H 09/17/17 23:00 INR 1.46 (0.93-1.08) H 09/17/17 23:00 APTT 42.7 Seconds (25.1-36.5) H 09/17/17 23:00 Assessment and Plan - Assessment and Plan (Free Text) Assessment: Infectious Diseases Attending Physician Attestation Patient seen and examined, discussed with site medical director. I agree with the above findings, assessment and plan. In addition, patient with possible febrile neutropenia, started patient on Vancomycin and Cefepime and will follow up blood and urine cx. To discuss with Surgery regarding wound in the back. Overall prognosis is poor.
--- NOTE | 2017-09-28 14:51 | CON ---
HEMATOLOGY CONSULTATION PHYSICAL EXAMINATION: GENERAL: He is able to lie flat in bed. SKIN: No petechiae, no bruises. HEENT: Temporal wasting noted. NODES: Nonpalpable. LUNGS: Clear. HEART: S1 and S2. ABDOMEN: Shows no liver, no spleen, no tenderness. EXTREMITIES: No edema. The wound is opened, but seems to be clean, it is packed, and I spoke to the nurses, and they said that does not seem to smell of having any infection. LABORATORY DATA: White count is still 0.9, platelet counts are about 20, hemoglobin dropped a little bit 5.7, I gave him 1 unit of blood yesterday. There was some consideration of him going home. He could be transferred to [place] to be treated for the wound and get chemotherapy, and I said that chemotherapy cannot be given because of his pancytopenia and no pills anyway and so I will speak with Dr. Saravia his doctor over at [place] who has been treating him most recently. I sent Dr. Saravia a letter last week with all the results, and I would try and speak with Dr. Saravia over the phone today or tomorrow; however, we have emphasized again to the patient it is pretty difficult if not impossible to treat the underlying Waldenstrom's. His IgM is still well over 1999, and he is bedridden and the infection over his back and his lack of mobility precludes him easily to go to the hospital, so, at present he is bed bound. My anticipation is that he is going to need transfusions pretty much weekly which is what has been happening for the last month or so and we are in limbo situation here. I will try to speak with Dr. Saravia and see if he has any other ideas. Osvaldo Nolasco MD
--- NOTE | 2017-09-29 00:45 | PN ---
DATE: 09/28/2017 SUBJECTIVE: Patient states she feels weak and tired. She does not allow . She does not wish to be out of bed to chair. PHYSICAL EXAMINATION VITAL SIGNS: Temperature is 97.4, pulse of 93, blood pressure is 87/56, respirations 20. GENERAL: Patient is lying in bed, flat, comfortable. HEENT: No oral lesion. Anicteric sclerae. Moist mucosa. NECK: No JVD, adenopathy, or thyromegaly. CARDIOVASCULAR: S1 and S2, regular. No murmurs, rubs, or gallops. LUNGS: Clear to auscultation bilaterally. No wheeze, rales, or rhonchi. ABDOMEN: Bowel sounds are positive, soft, nontender and nondistended. EXTREMITIES: No cyanosis, clubbing or edema. LABORATORY DATA: White count of 0.8, hemoglobin of 6.1. Creatinine is 0.8. ASSESSMENT: 1. Stage III sacral pressure ulcer. 2. Pancytopenia. 3. Waldenstrom's gammaglobulinemia. 4. Do not resuscitate/do not intubate. 5. Frailty. PLAN: The patient was seen by Dr. Nolasco, yesterday. Patient has also been followed by Dr. Mas. He has been started on antibiotic as well. Blood cultures and urine cultures have been done. Patient is seen by Dr. Nolasco. Patient has pancytopenia, that is why it is difficult to treat the patient. We actually spoke to the patient regarding going to [place] for treatment. Patient is going to continue with local wound care. He is on digoxin. He is going to continue with Remeron. He is receiving vancomycin for antibiotics. He is on oxygen therapy. He is on heart healthy diet. Waqas Dixon MD
[2017-09-29] MEDS: Morphine 4 mg/ml ISec IVP PRN ×6 (04:35→21:35)
[2017-09-29] MEDS: Cefepime IV 2 gm in NS 2 GM/100 ML BAG IVPB SCH ×3 (06:07→21:34)
[2017-09-29] MEDS: Vancomycin 1gm in NS 250ml 1 GM/250 ML BAG IVPB SCH ×2 (06:09→17:34)
[2017-09-29] MEDS: Digoxin 125 mcg (0.125 mg) Tab PO SCH (09:42)
--- NOTE | 2017-09-29 12:55 | CP.PCM.PN ---
<Basilio Rubio - Last Filed: 09/29/17 12:55> Subjective - Date & Time of Evaluation Date of Evaluation: 09/29/17 Time of Evaluation: 12:50 - Subjective Subjective: Infectious disease progress note. Attending: Dr. Schmidt Pt seen and examined at bedside. No acute distress. pt is depressed, otherwise no complaints. No more fevers. Dressings have been changed and new optifoam has been put on. Objective - Vital Signs/Intake and Output Vital Signs (last 24 hours): Temp Pulse Resp BP Pulse Ox 97.8 F 102 H 20 96/58 L 94 L 09/29/17 09:11 09/29/17 09:42 09/29/17 09:11 09/29/17 09:42 09/29/17 09:11 Intake and Output: 09/29/17 09/29/17 06:59 18:59 Intake Total 360 Output Total 700 Balance -340 - Medications Medications: Current Medications Carvedilol (Coreg) 3.125 mg PO DAILY [facility] Last Admin: 09/29/17 09:42 Dose: 3.125 mg Digoxin (Lanoxin) 0.125 mg PO DAILY [facility] Last Admin: 09/29/17 09:42 Dose: 0.125 mg Cefepime HCl (Maxipime 2gm) 2 gm in 100 mls @ 100 mls/hr IVPB Q8 LUZ PRN Reason: Protocol Stop: 10/03/17 06:31 Last Admin: 09/29/17 06:07 Dose: 100 mls/hr Vancomycin HCl (Vancomycin 1gm) 1 gm in 250 mls @ 167 mls/hr IVPB Q12H LUZ PRN Reason: Protocol Last Admin: 09/29/17 06:09 Dose: 167 mls/hr Lorazepam (Ativan) 0.5 mg PO HS [facility] PRN Reason: Protocol Last Admin: 09/28/17 22:55 Dose: 0.5 mg Mirtazapine (Remeron) 22.5 mg PO HS [facility] Last Admin: 09/28/17 22:54 Dose: 22.5 mg Morphine Sulfate (Morphine) 4 mg IVP Q3H PRN PRN Reason: Pain, moderate (4-7) Last Admin: 09/29/17 12:15 Dose: 4 mg Ondansetron HCl (Zofran Inj) 4 mg IVP Q6H PRN PRN Reason: Nausea/Vomiting Last Admin: 09/26/17 05:38 Dose: 4 mg Sodium Chloride ([place] Nasal [place]) 0 ml NS BID LUZ Last Admin: 09/29/17 09:42 Dose: 1 spr - Labs Labs: 09/28/17 07:30 09/27/17 07:00 PT 16.0 SECONDS (9.4-12.5) H 09/17/17 23:00 INR 1.46 (0.93-1.08) H 09/17/17 23:00 APTT 42.7 Seconds (25.1-36.5) H 09/17/17 23:00 - Constitutional Appears: No Acute Distress, Cachectic, Chronically Ill - Head Exam Head Exam: ATRAUMATIC, NORMAL INSPECTION, NORMOCEPHALIC - Eye Exam Eye Exam: EOMI - ENT Exam ENT Exam: Mucous Membranes Moist - Neck Exam Neck Exam: Full ROM, Normal Inspection - Respiratory Exam Respiratory Exam: NORMAL BREATHING PATTERN. absent: Respiratory Distress - Cardiovascular Exam Cardiovascular Exam: +S1, +S2 - GI/Abdominal Exam GI & Abdominal Exam: Soft, Normal Bowel Sounds. absent: Tenderness - Extremities Exam Extremities Exam: Full ROM, Normal Capillary Refill, Normal Inspection. absent : Joint Swelling, Pedal Edema - Back Exam Back Exam: absent: NORMAL INSPECTION Additional comments: positive pressure ulcers on back - Neurological Exam Neurological Exam: Alert, Awake, Oriented x3 - Psychiatric Exam Psychiatric exam: Depressed - Skin Skin Exam: Dry, Normal Color, Warm. absent: Intact Assessment and Plan - Assessment and Plan (Free Text) Assessment: This is a 52 yo male with past medical hx of Waldenstrom's macroglobulinemia, s/ p chemotherapy, a fib, diverticulitis, stoma infection, MRSE bacteremia. ID consulted for febrile neutropenia. 1. Febrile neutropenia -neutropenic precautions in place -absolute neutrophil count of 642 yesterday, signifying moderate severity neutropenia -labs pending for today -wound culture positive for enterobacter and group G streptococcus -2 blood cultures negative x 24 hrs -urine culture pending -currently afebrile -pt is high risk with numerous comorbidities -continue cefepime 2 g IV q 8 hrs -continue vancomycin 1 g q 12 hrs -continue management per sx -continue dressing changes and optifoam for pressure ulcers on back -continue air mattress -if cultures continue to be negative, consider discontinuing abx. discussed with Dr. Schmidt. <Rashi Schmidt - Last Filed: 09/29/17 17:15> Objective - Vital Signs/Intake and Output Vital Signs (last 24 hours): Temp Pulse Resp BP Pulse Ox 97.8 F 102 H 20 96/58 L 94 L 09/29/17 09:11 09/29/17 09:42 09/29/17 09:11 09/29/17 09:42 09/29/17 09:11 Intake and Output: 09/29/17 09/29/17 06:59 18:59 Intake Total 360 Output Total 700 Balance -340 - Medications Medications: Current Medications Carvedilol (Coreg) 3.125 mg PO DAILY [facility] Last Admin: 09/29/17 09:42 Dose: 3.125 mg Digoxin (Lanoxin) 0.125 mg PO DAILY [facility] Last Admin: 09/29/17 09:42 Dose: 0.125 mg Cefepime HCl (Maxipime 2gm) 2 gm in 100 mls @ 100 mls/hr IVPB Q8 LUZ PRN Reason: Protocol Stop: 10/03/17 06:31 Last Admin: 09/29/17 14:41 Dose: 100 mls/hr Vancomycin HCl (Vancomycin 1gm) 1 gm in 250 mls @ 167 mls/hr IVPB Q12H [facility] PRN Reason: Protocol Last Admin: 09/29/17 06:09 Dose: 167 mls/hr Lorazepam (Ativan) 0.5 mg PO [facility] PRN Reason: Protocol Last Admin: 09/28/17 22:55 Dose: 0.5 mg Mirtazapine (Remeron) 22.5 mg PO HS [facility] Last Admin: 09/28/17 22:54 Dose: 22.5 mg Morphine Sulfate (Morphine) 4 mg IVP Q3H PRN PRN Reason: Pain, moderate (4-7) Last Admin: 09/29/17 15:30 Dose: 4 mg Ondansetron HCl (Zofran Inj) 4 mg IVP Q6H PRN PRN Reason: Nausea/Vomiting Last Admin: 09/26/17 05:38 Dose: 4 mg Sodium Chloride ([place] Nasal [place]) 0 ml NS BID [facility] Last Admin: 09/29/17 09:42 Dose: 1 spr - Labs Labs: 09/28/17 07:30 09/27/17 07:00 PT 16.0 SECONDS (9.4-12.5) H 09/17/17 23:00 INR 1.46 (0.93-1.08) H 09/17/17 23:00 APTT 42.7 Seconds (25.1-36.5) H 09/17/17 23:00 Assessment and Plan - Assessment and Plan (Free Text) Assessment: Infectious Diseases Attending Physician Attestation Patient seen and examined, discussed with medical transcriber. I agree with the above findings, assessment and plan. In addition, if cultures continue to be negative, may de-escalate antibiotics to cover the bacteria from the wound on the back.
--- NOTE | 2017-09-29 19:37 | PN ---
DATE: 09/29/2017 SUBJECTIVE: The patient has no complaints of any chest pain. No shortness of breath. He states he had difficult time sleeping. He has not been eating well. PHYSICAL EXAMINATION: VITAL SIGNS: Temperature is 97.8, pulse of 102, blood pressure 96/58, and respirations 20. GENERAL: The patient is lying in bed, flat, comfortable. HEENT: No oral lesion. Anicteric sclerae. Moist mucosa. NECK: No JVD, adenopathy, or thyromegaly. CARDIOVASCULAR: S1 and S2, regular. No murmurs, rubs, or gallops. LUNGS: Clear to auscultation bilaterally. No wheeze, rales, or rhonchi. ABDOMEN: Bowel sounds are positive, soft, nontender and nondistended. EXTREMITIES: No cyanosis, clubbing or edema. LABORATORY DATA: White count 0.8, hemoglobin 6.1,and platelet count is 14. ASSESSMENT: 1. Sacral pressure ulcer, stage III. 2. Pancytopenia. 3. Waldenstrom's gamma globulinemia. 4. Frailty. 5. Do not resuscitate/do not intubate. PLAN: The patient has hemoglobin of 6.1. Labs done. The patient is on antibiotics. The patient has blood cultures that were done, they have been negative x2 two days ago. The patient is going to continue with morphine for pain. He is on cefepime for antibiotics. He is on vancomycin as well. His overall prognosis is poor. Given the multiple pressure ulcer, he is also not engaged in his care. He is not eating well. He does not wish to work with Physical Therapy much. His overall prognosis is guarded. Waqas Dixon MD
[2017-09-30] MEDS: Morphine 4 mg/ml ISec IVP PRN ×5 (02:12→18:11)
[2017-09-30] MEDS: Cefepime IV 2 gm in NS 2 GM/100 ML BAG IVPB SCH ×3 (05:45→21:37)
[2017-09-30] MEDS: Vancomycin 1gm in NS 250ml 1 GM/250 ML BAG IVPB SCH ×2 (05:46→18:10)
[2017-09-30] MEDS: Digoxin 125 mcg (0.125 mg) Tab PO SCH (09:41)
--- NOTE | 2017-09-30 13:33 | CP.PCM.PN ---
<Hina Ruiz - Last Filed: 09/30/17 13:41> Subjective - Date & Time of Evaluation Date of Evaluation: 09/30/17 Time of Evaluation: 13:30 - Subjective Subjective: PGY-[address] Dixon Pt states that he felt warm at night. Poor appetite. Pain controlled. Objective - Vital Signs/Intake and Output Vital Signs (last 24 hours): Temp Pulse Resp BP Pulse Ox 97.8 F 100 H 20 91/51 L 99 09/30/17 07:30 09/30/17 09:40 09/30/17 07:30 09/30/17 09:40 09/30/17 07:30 Intake and Output: 09/30/17 09/30/17 06:59 18:59 Intake Total 600 Output Total 400 Balance 200 - Medications Medications: Current Medications Carvedilol (Coreg) 3.125 mg PO DAILY [facility] Last Admin: 09/30/17 09:40 Dose: 3.125 mg Digoxin (Lanoxin) 0.125 mg PO DAILY [facility] Last Admin: 09/30/17 09:41 Dose: 0.125 mg Cefepime HCl (Maxipime 2gm) 2 gm in 100 mls @ 100 mls/hr IVPB Q8 LUZ PRN Reason: Protocol Stop: 10/03/17 06:31 Last Admin: 09/30/17 05:45 Dose: 100 mls/hr Vancomycin HCl (Vancomycin 1gm) 1 gm in 250 mls @ 167 mls/hr IVPB Q12H [facility] PRN Reason: Protocol Last Admin: 09/30/17 05:46 Dose: 167 mls/hr Lorazepam (Ativan) 0.5 mg PO HS [facility] PRN Reason: Protocol Last Admin: 09/29/17 21:32 Dose: 0.5 mg Mirtazapine (Remeron) 22.5 mg PO HS [facility] Last Admin: 09/29/17 21:34 Dose: 22.5 mg Morphine Sulfate (Morphine) 4 mg IVP Q3H PRN PRN Reason: Pain, moderate (4-7) Last Admin: 09/30/17 11:31 Dose: 4 mg Ondansetron HCl (Zofran Inj) 4 mg IVP Q6H PRN PRN Reason: Nausea/Vomiting Last Admin: 09/26/17 05:38 Dose: 4 mg Sodium Chloride ([place] Nasal [place]) 0 ml NS BID LUZ Last Admin: 09/30/17 09:40 Dose: 2 spr - Labs Labs: 09/28/17 07:30 09/27/17 07:00 PT 16.0 SECONDS (9.4-12.5) H 09/17/17 23:00 INR 1.46 (0.93-1.08) H 09/17/17 23:00 APTT 42.7 Seconds (25.1-36.5) H 09/17/17 23:00 - Constitutional Appears: Non-toxic, No Acute Distress - Head Exam Head Exam: ATRAUMATIC, NORMAL INSPECTION, NORMOCEPHALIC - Eye Exam Eye Exam: EOMI, Normal appearance, PERRL Pupil Exam: NORMAL ACCOMODATION - ENT Exam ENT Exam: Mucous Membranes Moist - Neck Exam Additional comments: supple - Respiratory Exam Respiratory Exam: Clear to Ausculation Bilateral, NORMAL BREATHING PATTERN. absent: Rales, Rhonchi, Wheezes - Cardiovascular Exam Cardiovascular Exam: REGULAR RHYTHM. absent: +S1, +S2 - GI/Abdominal Exam GI & Abdominal Exam: Soft. absent: Tenderness Additional comments: ostomy bag intact, no rash - Extremities Exam Extremities Exam: absent: Calf Tenderness Additional comments: move all extremities. Toes contracted - Neurological Exam Neurological Exam: Alert, Awake, Oriented x3 - Psychiatric Exam Psychiatric exam: Normal Affect, Normal Mood - Skin Skin Exam: Dry, Warm Assessment and Plan - Assessment and Plan (Free Text) Plan: Mr Garcia, 52M, bedridden with PMHx Waldenstrom gamma globulinemia, is s/p thoracic vertebral abscess, s/p I&D, with wound vac. After transfusion, pt noticed bleeding from dressings. He was admitted with SIRS, pancytopenia, bleeding from paraspinal wounds. A: Febrile neutropenia Sacral pressure ulcers, III, multiple Bed-ridden due to deconditioning and gait dysfunction Pancytopenia s/p 13 u pRBC, 1 u irrad/platelet Waldenstrom's gamma globulinemia, IgM over 1999, s/p chemotherapy Frailty DNR/DNI A fib Hx Waldenstrom's gammaglobulinemia Hx mesenteric ischemia, ruptures diverticula, diverticulitis Hx stromal infection, MRSA bacteremia P: Continue vancomycin and cefepime; neutropenic precaution; negative blood culture x 3 days; Wound culture positive for enterobacter and group G streptococcus Morphine PRN for pain Per Heme, could consider transfer to [facility] for wound and chemotherapy May need weekly transfusion Air mattress; Continue local wound care with daily packing changes, non- adhesive dressing, optiform Pt did not eat well and wishes not to work with physical therapy On carvedilol, Digoxin Mirtazapine, ativan PRN s/r/d/w Dr. Dixon <Waqas Dixon S - Last Filed: 10/01/17 00:33> Objective - Vital Signs/Intake and Output Vital Signs (last 24 hours): Temp Pulse Resp BP Pulse Ox 99.4 F 104 H 20 174/44 H 100 09/30/17 16:00 09/30/17 16:00 09/30/17 16:00 09/30/17 16:00 09/30/17 16:00 Intake and Output: 09/30/17 10/01/17 18:59 06:59 Intake Total 360 Output Total 400 Balance -40 - Medications Medications: Current Medications Carvedilol (Coreg) 3.125 mg PO DAILY [facility] Last Admin: 09/30/17 09:40 Dose: 3.125 mg Digoxin (Lanoxin) 0.125 mg PO DAILY [facility] Last Admin: 09/30/17 09:41 Dose: 0.125 mg Cefepime HCl (Maxipime 2gm) 2 gm in 100 mls @ 100 mls/hr IVPB Q8 LUZ PRN Reason: Protocol Stop: 10/03/17 06:31 Last Admin: 09/30/17 21:37 Dose: 100 mls/hr Vancomycin HCl (Vancomycin 1gm) 1 gm in 250 mls @ 167 mls/hr IVPB Q12H [facility] PRN Reason: Protocol Last Admin: 09/30/17 18:10 Dose: 167 mls/hr Lorazepam (Ativan) 0.5 mg PO HS [facility] PRN Reason: Protocol Last Admin: 09/30/17 21:33 Dose: 0.5 mg Mirtazapine (Remeron) 22.5 mg PO HS [facility] Last Admin: 09/30/17 21:32 Dose: 22.5 mg Morphine Sulfate (Morphine) 4 mg IVP Q3H PRN PRN Reason: Pain, moderate (4-7) Last Admin: 09/30/17 18:11 Dose: 4 mg Ondansetron HCl (Zofran Inj) 4 mg IVP Q6H PRN PRN Reason: Nausea/Vomiting Last Admin: 09/26/17 05:38 Dose: 4 mg Oseltamivir Phosphate (Tamiflu Cap) 75 mg PO BID [facility] PRN Reason: Protocol Stop: 10/05/17 17:09 Last Admin: 09/30/17 18:11 Dose: 75 mg Sodium Chloride ([place] Nasal [place]) 0 ml NS BID LUZ Last Admin: 09/30/17 21:34 Dose: 1 spr - Labs Labs: 09/28/17 07:30 09/27/17 07:00 PT 16.0 SECONDS (9.4-12.5) H 09/17/17 23:00 INR 1.46 (0.93-1.08) H 09/17/17 23:00 APTT 42.7 Seconds (25.1-36.5) H 09/17/17 23:00 Assessment and Plan - Assessment and Plan (Free Text) Plan: Pt seen by me and above note reviewed. Pt seen and examined. Labs and vitals reviewed.Agree with above note. Pt on Abx. Pt will go home when he can switch to PO Abx by ID.
--- NOTE | 2017-09-30 16:28 | CP.PCM.PN ---
Subjective - Date & Time of Evaluation Date of Evaluation: 09/30/17 Time of Evaluation: 13:15 - Subjective Subjective: No fevers, still with weakness, no diarrhea. Objective - Vital Signs/Intake and Output Vital Signs (last 24 hours): Temp Pulse Resp BP Pulse Ox 97.8 F 100 H 20 91/51 L 94 L 09/29/17 09:11 09/30/17 09:40 09/29/17 09:11 09/30/17 09:40 09/29/17 09:11 Intake and Output: 09/30/17 09/30/17 06:59 18:59 Intake Total 600 Output Total 400 Balance 200 - Medications Medications: Current Medications Carvedilol (Coreg) 3.125 mg PO DAILY [facility] Last Admin: 09/30/17 09:40 Dose: 3.125 mg Digoxin (Lanoxin) 0.125 mg PO DAILY [facility] Last Admin: 09/30/17 09:41 Dose: 0.125 mg Cefepime HCl (Maxipime 2gm) 2 gm in 100 mls @ 100 mls/hr IVPB Q8 [facility] PRN Reason: Protocol Stop: 10/03/17 06:31 Last Admin: 09/30/17 05:45 Dose: 100 mls/hr Vancomycin HCl (Vancomycin 1gm) 1 gm in 250 mls @ 167 mls/hr IVPB Q12H [facility] PRN Reason: Protocol Last Admin: 09/30/17 05:46 Dose: 167 mls/hr Lorazepam (Ativan) 0.5 mg PO [facility] PRN Reason: Protocol Last Admin: 09/29/17 21:32 Dose: 0.5 mg Mirtazapine (Remeron) 22.5 mg PO HS [facility] Last Admin: 09/29/17 21:34 Dose: 22.5 mg Morphine Sulfate (Morphine) 4 mg IVP Q3H PRN PRN Reason: Pain, moderate (4-7) Last Admin: 09/30/17 07:57 Dose: 4 mg Ondansetron HCl (Zofran Inj) 4 mg IVP Q6H PRN PRN Reason: Nausea/Vomiting Last Admin: 09/26/17 05:38 Dose: 4 mg Sodium Chloride ([place] Nasal [place]) 0 ml NS BID [facility] Last Admin: 09/30/17 09:40 Dose: 2 spr - Labs Labs: 09/28/17 07:30 09/27/17 07:00 PT 16.0 SECONDS (9.4-12.5) H 09/17/17 23:00 INR 1.46 (0.93-1.08) H 09/17/17 23:00 APTT 42.7 Seconds (25.1-36.5) H 09/17/17 23:00 - Constitutional Appears: Cachectic, Chronically Ill - Head Exam Head Exam: NORMAL INSPECTION - Neck Exam Neck Exam: absent: Meningismus - Respiratory Exam Respiratory Exam: Decreased Breath Sounds - Cardiovascular Exam Cardiovascular Exam: +S1, +S2 - GI/Abdominal Exam GI & Abdominal Exam: Soft. absent: Tenderness Assessment and Plan - Assessment and Plan (Free Text) Plan: assessment fever post-blood transfusion in a neutropenic patient thoracic wound, ulcer, improving clinically growing Enterobacter and Group G strep history of thoracic area soft tissue infection (re-recurrence),grew MSSA S/P wound vacuum placement - history of sepsis due to thoracic area soft tissue infection (recurrence) with methicillin-resistant c oagulase negative staph ( bacteremia with this as well), Pseudomonas, Acinetobacter with no evidence of vertebral osteomyelitis on MRI (2016); previously the abscess had MRSA and E. faecalis history of C. diff associated diarrhea history of intra-abdominal infection/colitis history of Acute sigmoid diverticulitis with abscess formation S/P resection and colostomy placement Waldenstrom's Macroglobinemia currently on chemotherapy atrial fibrillation on anticoagulation Plan continue Cefepime but can be switched to levaquin to complete 7-10 days of therapy
[2017-10-01] MEDS: Morphine 4 mg/ml ISec IVP PRN ×7 (01:47→22:07)
[2017-10-01] MEDS ORDERED: Sodium Chloride 0.9% 500 ML IV SCH (03:00)
[2017-10-01] MEDS: Cefepime IV 2 gm in NS 2 GM/100 ML BAG IVPB SCH ×3 (06:01→22:05)
[2017-10-01] MEDS: Vancomycin 1gm in NS 250ml 1 GM/250 ML BAG IVPB SCH (06:57)
[2017-10-01] MEDS ORDERED: Sodium Chloride 0.9% 250 ML IV STA (09:08)
[2017-10-01] MEDS: Digoxin 125 mcg (0.125 mg) Tab PO SCH (09:27)
--- NOTE | 2017-10-01 13:43 | CP.PCM.PN ---
Subjective - Date & Time of Evaluation Date of Evaluation: 10/01/17 Time of Evaluation: 12:50 - Subjective Subjective: Patient is a little more awake today, no fevers overnight. Cough is improving. Objective - Vital Signs/Intake and Output Vital Signs (last 24 hours): Temp Pulse Resp BP Pulse Ox 97.3 F L 87 18 78/47 L 99 10/01/17 07:30 10/01/17 07:30 10/01/17 07:30 10/01/17 07:30 10/01/17 07:30 Intake and Output: 10/01/17 10/01/17 06:59 18:59 Intake Total 780 Output Total 700 Balance 80 - Medications Medications: Current Medications Carvedilol (Coreg) 3.125 mg PO DAILY [facility] Last Admin: 09/30/17 09:40 Dose: 3.125 mg Digoxin (Lanoxin) 0.125 mg PO DAILY [facility] Last Admin: 10/01/17 09:27 Dose: 0.125 mg Cefepime HCl (Maxipime 2gm) 2 gm in 100 mls @ 100 mls/hr IVPB Q8 [facility] PRN Reason: Protocol Stop: 10/03/17 06:31 Last Admin: 10/01/17 06:01 Dose: 100 mls/hr Vancomycin HCl (Vancomycin 1gm) 1 gm in 250 mls @ 167 mls/hr IVPB Q12H [facility] PRN Reason: Protocol Last Admin: 10/01/17 06:57 Dose: 167 mls/hr Lorazepam (Ativan) 0.5 mg PO HS [facility] PRN Reason: Protocol Last Admin: 09/30/17 21:33 Dose: 0.5 mg Mirtazapine (Remeron) 22.5 mg PO HS [facility] Last Admin: 09/30/17 21:32 Dose: 22.5 mg Morphine Sulfate (Morphine) 4 mg IVP Q3H PRN PRN Reason: Pain, moderate (4-7) Last Admin: 10/01/17 10:24 Dose: 4 mg Ondansetron HCl (Zofran Inj) 4 mg IVP Q6H PRN PRN Reason: Nausea/Vomiting Last Admin: 09/26/17 05:38 Dose: 4 mg Oseltamivir Phosphate (Tamiflu Cap) 75 mg PO BID [facility] PRN Reason: Protocol Stop: 10/05/17 17:09 Last Admin: 10/01/17 09:27 Dose: 75 mg Sodium Chloride ([place] Nasal [place]) 0 ml NS BID [facility] Last Admin: 10/01/17 09:46 Dose: Not Given - Labs Labs: 09/28/17 07:30 09/27/17 07:00 PT 16.0 SECONDS (9.4-12.5) H 09/17/17 23:00 INR 1.46 (0.93-1.08) H 09/17/17 23:00 APTT 42.7 Seconds (25.1-36.5) H 09/17/17 23:00 - Constitutional Appears: Cachectic, Chronically Ill - Head Exam Head Exam: NORMAL INSPECTION - ENT Exam ENT Exam: Mucous Membranes Moist - Neck Exam Neck Exam: absent: Meningismus - Respiratory Exam Respiratory Exam: Decreased Breath Sounds - Cardiovascular Exam Cardiovascular Exam: +S1, +S2 - GI/Abdominal Exam GI & Abdominal Exam: Soft. absent: Tenderness Assessment and Plan - Assessment and Plan (Free Text) Plan: assessment systemic viral illness with Influenza thoracic wound, ulcer, improving clinically growing Enterobacter and Group G strep history of thoracic area soft tissue infection (re-recurrence),grew MSSA S/P wound vacuum placement - history of sepsis due to thoracic area soft tissue infection (recurrence) with methicillin-resistant c oagulase negative staph ( bacteremia with this as well), Pseudomonas, Acinetobacter with no evidence of vertebral osteomyelitis on MRI (2016); previously the abscess had MRSA and E. faecalis history of C. diff associated diarrhea history of intra-abdominal infection/colitis history of Acute sigmoid diverticulitis with abscess formation S/P resection and colostomy placement Waldenstrom's Macroglobinemia currently on chemotherapy atrial fibrillation on anticoagulation Plan continue Cefepime but can be switched to levaquin to complete 7-10 days of therapy continue Tamiflu day 2 of 5
--- NOTE | 2017-10-01 23:43 | PN ---
DATE: SUBJECTIVE: The patient has no complaints of any chest pain. No shortness of breath. No headaches. PHYSICAL EXAMINATION VITAL SIGNS: Temperature is 97.3, pulse is 87, blood pressure is 78/47, and respiration is 18. GENERAL: The patient is lying in bed, flat, comfortable. HEENT: No oral lesion. Anicteric sclerae. Moist mucosa. NECK: No JVD, adenopathy, or thyromegaly. CARDIOVASCULAR: S1 and S2, regular. No murmurs, rubs, or gallops. LUNGS: Clear to auscultation bilaterally. No wheeze, rales, or rhonchi. ABDOMEN: Bowel sounds are positive, soft, nontender and nondistended. EXTREMITIES: No cyanosis, clubbing or edema. LABORATORY DATA: White count of 0.8, hemoglobin is 6.1, creatinine 0.8. ASSESSMENT: 1. Stage 3 sacral pressure ulcer. 2. Pancytopenia. 3. Waldenstrom's gammaglobulinemia. 4. Do not resuscitate/do not intubate. 5. Frailty. PLAN: The patient is currently comfortable. The patient will get repeat blood work done tomorrow. He is getting local wound care. The patient is on IV antibiotics. He is not eating that well. The patient is receiving digoxin. He is going to continue with his carvedilol. I will renew these medications. The patient is on Ativan. He is going to continue on Zofran. The patient is on heart healthy diet. The patient's blood cultures are negative. Waqas Dixon MD
[2017-10-02] MEDS: Morphine 4 mg/ml ISec IVP PRN ×5 (02:24→20:37)
[2017-10-02] MEDS: Cefepime IV 2 gm in NS 2 GM/100 ML BAG IVPB SCH ×3 (05:26→22:16)
[2017-10-02 07:40] LABS: ALB/GLOB RATIO 0.6 (1.1-1.8); ALBUMIN 3.1 g/dL (3.0-4.8); ALT/SGPT 15 U/L (7-56); AST/SGOT 13 U/L (17-59); BLOOD UREA NITROGEN 27 mg/dL (7-21); GFR AFRICAN-AMERICAN > 60; GFR NON-AFRICAN AMERICAN > 60
[2017-10-02 07:54] LABS: MEAN CELL VOLUME 98.2 fl (80.0-105.0); MEAN CORPUSCULAR HEMOGLOBIN 29.8 pg (25.0-35.0); MEAN CORPUSCULAR HGB CONC 30.4 g/dl (31.0-37.0); MEAN PLATELET VOLUME 10.6 fl (7.0-11.0); RBC 1.71 10^6/uL (3.5-6.1); RED CELL DISTRIBUTION WIDTH 18.7 % (11.5-14.5)
[2017-10-02 08:13] LABS: HEMOGLOBIN 5.1 g/dL (14.0-18.0); PLATELET COUNT 9 10^3/uL (120.0-450.0); WHITE BLOOD COUNT 0.4 10^3/ul (4.5-11.0)
[2017-10-02] MEDS: Digoxin 125 mcg (0.125 mg) Tab PO SCH (10:10)
--- NOTE | 2017-10-02 15:37 | PN ---
DATE: SUBJECTIVE: Td Garcia is seen on the floor. He is afebrile with the blood pressure above 90, lying in a specialty mattress, the back has improved, it is certainly not tender anymore, being changed by the residents. Noted that his lab work is not better; his white count is down to 0.8 and platelet count down to . Watching him breath, somewhat disturbing, but when he woke up, he breath and talked to me normally. We will follow peripherally. Please call us as necessary. Td Mas MD
--- NOTE | 2017-10-02 22:37 | PN ---
DATE: 10/02/2017 SUBJECTIVE: The patient is in bed, in no acute distress, nontoxic. No fevers. Was seen earlier this morning in room , bed one. PHYSICAL EXAMINATION: VITAL SIGNS: Temperature is 98, blood pressure is 75/40, respiratory rate of 18, heart rate of 57. HEENT: Unremarkable. NECK: Supple. LUNGS: Have decreased breath sounds. HEART: Normal S1, S2. ABDOMEN: Soft. Laboratory examination reveals a white count of 0.4, hemoglobin of 5, and platelets of 9. Chemistries are noted and procalcitonin 0.14. Serology is positive for influenza. Microbiology reveals blood cultures are negative. The back cultures have group G strep and enterobacter. Review of orders reveals the patient to be on cefepime and stop the Tamiflu. ASSESSMENT AND PLAN: A 52-year-old male with sero-systemic inflammatory response syndrome with influenza, sepsis, and thoracic wound with group G strep enterobacter and Waldenstrom's macroglobulinemia and pancytopenia, day #3 of Tamiflu. Would complete 5 days. The patient is on cefepime. Prognosis quite poor. The patient appears terminal and cachectic and end-stage. Anatoliy Luna MD
[2017-10-03] MEDS: Morphine 4 mg/ml ISec IVP PRN ×5 (00:08→21:03)
[2017-10-03] MEDS: Cefepime IV 2 gm in NS 2 GM/100 ML BAG IVPB SCH (06:07)
[2017-10-03] MEDS: Digoxin 125 mcg (0.125 mg) Tab PO SCH (09:23)
--- NOTE | 2017-10-03 11:40 | PN ---
DATE: 10/03/2017 SUBJECTIVE: The patient seen earlier this morning and appearing chronically ill, debilitated and weak. PHYSICAL EXAMINATION: VITAL SIGNS: With a temperature of 97, blood pressure is 81/50, respiratory rate of 18, heart rate of 94. HEENT: Unremarkable. NECK: Supple. LUNGS: Have decreased breath sounds. HEART: Normal S1, S2. ABDOMEN: Soft, nontender. No rebound or guarding. No masses. LABORATORY DATA: Noted and microbiology is reviewed. ASSESSMENT AND PLAN: This is a 52-year-old male with systemic inflammatory response syndrome with influenza and sepsis and thoracic wound with group G strep and Enterobacter, Waldenstrom's macroglobulinemia, pancytopenia, day #4 of Tamiflu and the patient is on cefepime and overall prognosis is quite poor. Review of orders reveals the patient is now off of the cefepime, only on Tamiflu, one more day of Tamiflu. Prognosis is quite poor for this patient. Anatoliy Luna MD
[2017-10-03 12:06] LABS: MEAN CELL VOLUME 100.5 fl (80.0-105.0); MEAN CORPUSCULAR HEMOGLOBIN 30.4 pg (25.0-35.0); MEAN CORPUSCULAR HGB CONC 30.2 g/dl (31.0-37.0); MEAN PLATELET VOLUME 9.8 fl (7.0-11.0); RBC 1.91 10^6/uL (3.5-6.1); RED CELL DISTRIBUTION WIDTH 19.1 % (11.5-14.5)
[2017-10-03 12:08] LABS: HEMOGLOBIN 5.8 g/dL (14.0-18.0); WHITE BLOOD COUNT 0.7 10^3/ul (4.5-11.0)
[2017-10-03 12:09] LABS: PLATELET COUNT 6 10^3/uL (120.0-450.0)
[2017-10-04] MEDS: Morphine 4 mg/ml ISec IVP PRN ×3 (09:32→22:48)
[2017-10-04] MEDS: Digoxin 125 mcg (0.125 mg) Tab PO SCH (09:32)
[2017-10-04 09:56] LABS: GRAN # 0.68 (1.4-6.5); GRAN % 74.7 % (50.0-68.0); LYMPH # 0.2 (1.2-3.4); MEAN CELL VOLUME 96.1 fl (80.0-105.0); MEAN CORPUSCULAR HEMOGLOBIN 29.8 pg (25.0-35.0); MEAN PLATELET VOLUME 10.5 fl (7.0-11.0); MONO % 3.3 % (1.0-6.0); RBC 2.05 10^6/uL (3.5-6.1); RED CELL DISTRIBUTION WIDTH 18.8 % (11.5-14.5)
[2017-10-04 10:10] LABS: WHITE BLOOD COUNT 0.9 10^3/ul (4.5-11.0)
[2017-10-04 10:11] LABS: HEMOGLOBIN 6.1 g/dL (14.0-18.0); PLATELET COUNT 11 10^3/uL (120.0-450.0)
[2017-10-04 17:28] VITALS: RESP 20
--- NOTE | 2017-10-04 23:09 | PN ---
DATE: 10/04/2017 SUBJECTIVE: The patient is in bed in no acute distress, nontoxic. PHYSICAL EXAMINATION VITAL SIGNS: On exam, temperature is 97, blood pressure is 83/50, respiratory rate of 18, heart rate of 97. HEENT: The patient examination of HEENT is unremarkable. NECK: Supple. LUNGS: Decreased breath sounds. HEART: Normal S1, S2. ABDOMEN: Soft, nontender. LABORATORY DATA: Laboratory examination reveals the patient's white count is 0.9 and the hemoglobin of 6, platelets of 11. Chemistries are noted. BUN of 27, creatinine of 0.8, procalcitonin 0.14 and serology for influenza is positive. Microbiology is noted. Review of orders reveal the patient to be on Tamiflu. Today is day #5. ASSESSMENT AND PLAN: This is a 52-year-old male with systemic inflammatory response syndrome and sepsis with group G Streptococcus and Enterobacter wound infection and Waldenstrom's macroglobulinemia, pancytopenia, day #5 of Tamiflu. We would discontinue Tamiflu after today's date. Overall prognosis quite poor for this patient who is end stage. Anatoliy Luna MD
[2017-10-05] MEDS: Morphine 4 mg/ml ISec IVP PRN ×2 (04:20→10:46)
[2017-10-05 09:09] VITALS: BP 91/57; PULSE 99; TEMP 97.7; O2SAT 100
[2017-10-05] MEDS: Digoxin 125 mcg (0.125 mg) Tab PO SCH (10:36)
[2017-10-05 10:58] VITALS: PULSE 90
[2017-10-05 11:14] LABS: GRAN # 0.79 (1.4-6.5); GRAN % 80.6 % (50.0-68.0); LYMPH # 0.1 (1.2-3.4); LYMPH % 14.3 % (22.0-35.0); MEAN CELL VOLUME 95.5 fl (80.0-105.0); MEAN CORPUSCULAR HGB CONC 31.4 g/dl (31.0-37.0); MEAN PLATELET VOLUME 11.2 fl (7.0-11.0); MONO # 0.1 (0.1-0.6); MONO % 5.1 % (1.0-6.0); RBC 2.47 10^6/uL (3.5-6.1); RED CELL DISTRIBUTION WIDTH 18.7 % (11.5-14.5)
[2017-10-05 11:17] LABS: HEMOGLOBIN 7.4 g/dL (14.0-18.0); PLATELET COUNT 12 10^3/uL (120.0-450.0)
--- NOTE | 2017-10-05 11:23 | CP.PCM.PN ---
Subjective - Date & Time of Evaluation Date of Evaluation: 10/05/17 Time of Evaluation: 10:00 - Subjective Subjective: Lethargic, follows simple command. Complaining of generalized pain Objective - Vital Signs/Intake and Output Vital Signs (last 24 hours): Temp Pulse Resp BP Pulse Ox 97.7 F 99 H 20 91/57 L 100 10/05/17 08:00 10/05/17 08:00 10/05/17 08:00 10/05/17 08:00 10/05/17 08:00 Intake and Output: 10/05/17 10/05/17 06:59 18:59 Intake Total 720 Output Total 300 Balance 420 - Medications Medications: Current Medications Carvedilol (Coreg) 3.125 mg PO DAILY [facility] Last Admin: 10/05/17 10:36 Dose: 3.125 mg Digoxin (Lanoxin) 0.125 mg PO DAILY [facility] Last Admin: 10/05/17 10:36 Dose: 0.125 mg Morphine Sulfate (Morphine) 4 mg IVP Q3H PRN PRN Reason: Pain, moderate (4-7) Last Admin: 10/05/17 10:46 Dose: 4 mg Ondansetron HCl (Zofran Inj) 4 mg IVP Q6H PRN PRN Reason: Nausea/Vomiting Last Admin: 10/03/17 00:09 Dose: 4 mg Oseltamivir Phosphate (Tamiflu Cap) 75 mg PO BID [facility] PRN Reason: Protocol Stop: 10/05/17 17:09 Last Admin: 10/05/17 10:47 Dose: 75 mg Sodium Chloride ([place] Nasal [place]) 0 ml NS BID [facility] Last Admin: 10/05/17 10:47 Dose: Not Given - Labs Labs: 10/05/17 11:00 10/02/17 07:00 PT 16.0 SECONDS (9.4-12.5) H 09/17/17 23:00 INR 1.46 (0.93-1.08) H 09/17/17 23:00 APTT 42.7 Seconds (25.1-36.5) H 09/17/17 23:00 - Constitutional Appears: Cachectic, Chronically Ill - Head Exam Head Exam: NORMOCEPHALIC - Eye Exam Eye Exam: Normal appearance, PERRL - ENT Exam ENT Exam: Mucous Membranes Dry - Neck Exam Neck Exam: Normal Inspection - Respiratory Exam Respiratory Exam: Decreased Breath Sounds Additional comments: irregular breathing pattern - Cardiovascular Exam Cardiovascular Exam: REGULAR RHYTHM, +S1, +S2 - GI/Abdominal Exam GI & Abdominal Exam: Diminished Bowel Sounds Additional comments: colostomy draining greenish brown stool - Extremities Exam Additional comments: bilateral 2+ edema - Back Exam Back Exam: vertebral tenderness Additional comments: wound - Skin Skin Exam: Dry, Pallor Assessment and Plan - Assessment and Plan (Free Text) Assessment: 52 year old male with history of Waldenstrom's microglobulinemia, A Fib, paraspinal access, MRSA bacteremia, who is admitted with sepsis, pancytopenia, spinal abscess,failure to thrive. The patient sis extremely lethargic, rouses when spoken to. He is moaning, complaining of generalized body pain. His breathing is shallow and irregular. I spoke with him about the seriousness of his condition and wishes moving forward. I offered comfort care with the understanding that all other medical interventions would be stopped. The patient states that this was okay and asked that I call his and let her know. Family meeting held with patient's , mother and son. Family aware of the seriousness of patients medical condition. Explained that his prognosis was very poor. Questions answered. Option for hospice care offered. Hospice services explained in detail. Questions answered.Jenni health care liaison also met with family. requesting to speak with Dr Ward regarding prognosis and recommendation for hospice care. Dr Ward's service notified. Time spent with family in lengthy discussion regarding gaols of care, hospice services and and end of life , 90 minutes Plan: Palliative discussion/support in establishing goals of care Hospice evaluation.
--- NOTE | 2017-10-05 22:04 | PN ---
DATE: 10/05/2017 SUBJECTIVE: The patient is in bed, in no acute distress, nontoxic. No fever or chills. PHYSICAL EXAMINATION VITAL SIGNS: On exam, temperature is 97, blood pressure is 100/50, and respiratory rate of 16. HEENT: Examination of HEENT is unremarkable. NECK: Supple. LUNGS: Have decreased breath sounds. HEART: Normal S1, S2. ABDOMEN: Soft. LABORATORY EXAMINATION: Reveals a white count of 1, hemoglobin of 7, platelets of 12. ASSESSMENT AND PLAN: This is a 52-year-old male with systemic inflammatory response syndrome and sepsis with group G Streptococcus and Enterobacter wound infection, Waldenstrom's macroglobulinemia, pancytopenia. Overall prognosis is quite poor. Should consider hospice setting for this patient who is end stage. Anatoliy Luna MD
== END 2017-10-05 13:31 | disposition hospice, inpatient (51) | DRG 871 ==
LOC: ED 22:25 → ERH 09-18 01:57 → 2RSO 09-18 04:43 → 5RSO 09-18 15:59 → OBSVTOIN 09-21 15:48
PROVIDERS: ADMIT Internal Medicine; ATTEND Internal Medicine
PROC: 30233N1 Transfusion of Nonautologous Red Blood Cells into Peripheral Vein, Percutaneous Approach (ICD-10-PCS; principal; 2017-09-21)
PROC: 6A550Z2 Pheresis of Platelets, Single (ICD-10-PCS; 2017-09-21)
DX: A41.9 Sepsis, unspecified organism (principal); G06.1 Intraspinal abscess and granuloma; D61.818 Other pancytopenia; L89.102 Pressure ulcer of unspecified part of back, stage 2; D70.9 Neutropenia, unspecified; R64 Cachexia; L89.153 Pressure ulcer of sacral region, stage 3; I95.9 Hypotension, unspecified; K57.92 Diverticulitis of intestine, part unspecified, without perforation or abscess without bleeding; I42.9 Cardiomyopathy, unspecified; I11.0 Hypertensive heart disease with heart failure; I50.9 Heart failure, unspecified; I27.20 Pulmonary hypertension, unspecified; C88.0 Waldenstrom macroglobulinemia; G89.29 Other chronic pain; I25.10 Atherosclerotic heart disease of native coronary artery without angina pectoris; I48.2 Chronic atrial fibrillation; J11.1 Influenza due to unidentified influenza virus with other respiratory manifestations; J44.9 Chronic obstructive pulmonary disease, unspecified; R50.81 Fever presenting with conditions classified elsewhere; Z66 Do not resuscitate; Z51.5 Encounter for palliative care; Z74.01 Bed confinement status; Z79.01 Long term (current) use of anticoagulants; Z79.899 Other long term (current) drug therapy; Z86.14 Personal history of Methicillin resistant Staphylococcus aureus infection; Z87.891 Personal history of nicotine dependence; Z92.21 Personal history of antineoplastic chemotherapy; Z93.3 Colostomy status; Z86.61 Personal history of infections of the central nervous system; R40.2412 Glasgow coma scale score 13-15, at arrival to emergency department; B95.4 Other streptococcus as the cause of diseases classified elsewhere; B96.89 Other specified bacterial agents as the cause of diseases classified elsewhere

== ENCOUNTER 2017-10-05 13:35 | Inpatient (IN) | payer OTHER ==
[2017-10-05 10:58] VITALS: PULSE 90
[2017-10-05] MEDS ORDERED: Morphine 2 mg/ml ISec IVP STA ×2 (13:39→16:20)
[2017-10-05] MEDS ORDERED: Morphine PCA 1 mg/ml (25ml) 25 ML IV PRN (13:40)
[2017-10-05 18:43] VITALS: RESP 16; BMI 21.9
[2017-10-05] MEDS ORDERED: Influenza Vaccine 60 mcg/0.5 mL SYR (4YR UP) IM ONE (18:43)
[2017-10-05] MEDS ORDERED: Pneumococcal 23-Valent Vaccine IM ONE (18:43)
--- NOTE | 2017-10-06 03:48 | CP.PCM.PRO ---
Pronouncement of Note - Clinical Findings Physical Exam: No Response Verbal/Painful Stimuli, Absent Peripheral Pulses{ Carotid & Femoral}, Absent Heart & Breath Sounds, No Pupillary Light Reflex, No Corneal Reflex, Pupils Fixed & Dilated, Absence of Vital Signs - Pronouncement Time Time of Pronouncement of : 03:35 Additional Comments: pt is on hospice care - Notifications Pronouncement Notifications: Family Notified, Atending Notified Manager Bridge Notified: No - Autopsy Autopsy Requested: No - [place] Certificate Additional Comments: Time spent on patient:25 minutes
== END 2017-10-06 03:45 | DRG 871 ==
LOC: 5RSO 13:35
PROVIDERS: ADMIT Internal Medicine; ATTEND Internal Medicine
DX: A41.9 Sepsis, unspecified organism (principal); G06.1 Intraspinal abscess and granuloma; D61.818 Other pancytopenia; L89.102 Pressure ulcer of unspecified part of back, stage 2; D70.9 Neutropenia, unspecified; R64 Cachexia; L89.153 Pressure ulcer of sacral region, stage 3; I95.9 Hypotension, unspecified; K57.92 Diverticulitis of intestine, part unspecified, without perforation or abscess without bleeding; I42.9 Cardiomyopathy, unspecified; I11.0 Hypertensive heart disease with heart failure; I50.9 Heart failure, unspecified; I27.20 Pulmonary hypertension, unspecified; C88.0 Waldenstrom macroglobulinemia; G89.29 Other chronic pain; I25.10 Atherosclerotic heart disease of native coronary artery without angina pectoris; I48.2 Chronic atrial fibrillation; J11.1 Influenza due to unidentified influenza virus with other respiratory manifestations; J44.9 Chronic obstructive pulmonary disease, unspecified; R50.81 Fever presenting with conditions classified elsewhere; Z66 Do not resuscitate; Z51.5 Encounter for palliative care